=== PATIENT | female | born 1965 | race Caucasian/White ===

== ENCOUNTER → 2019-10-05 | Outpatient (CLI) | payer SELFPAY ==
--- NOTE | 2019-10-05 15:17 | XR ---
EXAMINATION TYPE: XR chest 2V DATE OF EXAM: 10/05/2019 COMPARISON: NONE HISTORY: Shortness of breath TECHNIQUE: Frontal and lateral views of the chest are obtained. FINDINGS: Scattered senescent parenchymal changes noted. Hyperinflation compatible with COPD. No evidence for infiltrate. No evidence for atelectasis. Cavitary lesion left upper lobe 5.8 x 5.2 cm tiny fluid level may reflect infected bulla versus necrotic neoplasm or infectious process. CT of th e chest is recommended. Heart size is stable. Mediastinal structures are stable and grossly unremarkable. No evidence for hilar prominence. Degenerative changes dorsal spine. IMPRESSION: 1. Cavitary lesion left upper lobe 5.8 x 5.2 cm tiny fluid level may reflect infected bulla versus ne crotic neoplasm or infectious process. CT of the chest is recommended.
== END | disposition home or self-care (01) ==
LOC: RADXRMAIN 14:49
PROVIDERS: ATTEND Family Medicine
DX: R91.1 Solitary pulmonary nodule (principal); R07.2 Precordial pain; R05 Cough
CPT/HCPCS: 71046

== ENCOUNTER → 2019-10-20 | Outpatient (CLI) | payer OTHER ==
[2019-10-20 09:14] LABS: African American GFR (CKD) >90 (>60 ml/min/1.73 sqM); Blood Urea Nitrogen 6 mg/dL (7-17); Non-African American GFR(CKD) >90 (>60 ml/min/1.73 sqM)
--- NOTE | 2019-10-20 11:11 | CT ---
"EXAMINATION TYPE: CT chest w con DATE OF EXAM: 10/20/2019 COMPARISON: Chest x-ray 10/05/2019 HISTORY: Hemoptysis, cough CT DLP: 1621 mGycm, Automated exposure control for dose reduction was used. CONTRAST: Performed injected with 100 mL of Isovue 300. TECHNIQUE: Axial images were obtained at 5 mm thick sections. Reconstructed images are reviewed on [employer] computer in the coronal plane. FINDINGS: Portion of the thyroid visualized is normal. There is a large cavitary lesion with an air-fluid level with slightly irregular thick wall at the le ft lung apex. This measures 8.6 cm in diameter which is larger than the chest x-ray of 5 cm in diamet er. Some mild compressive atelectasis or infiltrate may be adjacent especially inferiorly. Small left pleural effusion is present. Scattered small shotty lymph nodes are within the mediastinum. Enlarged mediastinal adenopathy is not evident. The ascending aorta diameter at the level of the main pulmonary artery is 3.1 cm. The main pulmonary artery diameter at the bifurcation is 2.[address] sections are obtained through the upper abdomen. Abdomen is essentially unremarkable. IMPRESSIONS: 1. Enlarging cavitary lesion left apex. Infectious etiology should be considered. Consider TB within the differential. Aspergillosis should be considered. Neoplasm not excluded. A Yellow level critical message alert has been initiated for Nathan Leroy MD via the [employer] | Critical Results System on 10/20/2019 11:08 AM. This message alert has been sent to Nathan ng MD via the preferences provided by the clinician for the receipt of Radiology Critical Findings. Herbie essage ID [id number]."
== END | disposition home or self-care (01) ==
LOC: RADCTMAIN 08:29
PROVIDERS: ATTEND Family Medicine
DX: J98.4 Other disorders of lung (principal); R04.2 Hemoptysis; R05 Cough; Z88.0 Allergy status to penicillin
CPT/HCPCS: 82565; 84520; 71260; 36415; Q9967

== ENCOUNTER 2019-10-21 16:49 | Inpatient (IN) | payer OTHER ==
[2019-10-21] MEDS ORDERED: SODIUM CHLORIDE 0.9% 500 ML 500 ML IV STA (17:37)
--- NOTE | 2019-10-21 17:54 | ED ---
General Adult HPI - General Chief complaint: Recheck/Abnormal Lab/Rx Stated complaint: lung abscess Time Seen by Provider: 10/21/19 16:50 Source: patient, RN notes reviewed, old records reviewed Mode of arrival: ambulatory Limitations: no limitations - History of Present Illness Initial comments: This is a 54-year-old female who presents to the emergency department to get she's been coughing for 6 months. Patient states for the last couple of months she's been coughing up some blood here and there she continued with antibiotics and recently she had a CAT scan. CAT scan showed a cavitary lesion so she was sent to the emergency department. We were concerned about tuberculosis but the patient states she had a negative skin test within the last week and a half. Patient states she's gotten extremely tired and fatigued over the last 2 weeks. Patient states on occasion she's felt like she's had a fever but she's never taken her temperature. Patient denies any night sweats. Patient denies any chest pain or palpitations. Patient denies any abdominal pain patient denies nausea vomiting diarrhea. Patient denies any calf tenderness. - Related Data Home Medications Medication Instructions Recorded Confirmed DULoxetine HCL [Cymbalta] 60 mg PO DAILY 06/04/16 10/21/19 Benzonatate [Tessalon Perles] 100 - 200 mg PO DAILY PRN 10/21/19 10/21/19 Bisoprolol-Hctz 5-6.25 mg [Ziac 1 tab PO DAILY 10/21/19 10/21/19 5-6.25 MG] Fluticasone Nasal [place] [Flonase 1 - 2 sprays EA NOSTRIL DAILY 10/21/19 10/21/19 Nasal [place]] Rosuvastatin [Crestor] 20 mg PO DAILY 10/21/19 10/21/19 amLODIPine [Norvasc] 10 mg PO DAILY 10/21/19 10/21/19 sitaGLIPtin PHOS/metFORMIN HCL 1 tab PO DAILY 10/21/19 10/21/19 [Janumet Xr 100-1,000 mg Tablet] Allergies Allergy/AdvReac Type Severity Reaction Status Date / Time Penicillins Allergy Unknown Verified 10/21/19 18:52 Childhood Review of Systems ROS Statement: Those systems with pertinent positive or pertinent negative responses have been documented in the HPI. ROS Other: All systems not noted in ROS Statement are negative. Past Medical History Past Medical History: Cancer, Hypertension Additional Past Medical History / Comment(s): cervical cancer History of Any Multi-Drug Resistant Organisms: None Reported Past Surgical History: Hysterectomy Past Psychological History: Anxiety, Bipolar, Depression Smoking Status: Current every day smoker Past Alcohol Use History: Occasional Past Drug Use History: None Reported General Exam - General Exam Comments Initial Comments: GENERAL: Patient is well-developed and well-nourished. Patient is nontoxic and well-hyd rated and is in mild distress. ENT: Neck is soft and supple. No significant lymphadenopathy is noted. Oropharynx is clear. Moist mucous membranes. Neck has full range of motion without eliciting any pain. EYES: The sclera were anicteric and conjunctiva were pink and moist. Extraocular movements were intact and pupils were equal round and reactive to light. Eyelids were unremarkable. PULMONARY: Unlabored respirations. Good breath sounds bilaterally. No audible rales rhonchi or wheezing was noted. CARDIOVASCULAR: There is a regular rate and rhythm without any murmurs gallops or rubs. ABDOMEN: Soft and nontender with normal bowel sounds. No palpable organomegaly was noted. There is no palpable pulsatile mass. SKIN: Skin is clear with no lesions or rashes and otherwise unremarkable. NEUROLOGIC: Patient is alert and oriented x3. Cranial nerves II through XII are grossly intact. Motor and sensory are also intact. Normal speech, volume and content. Symmetrical smile. MUSCULOSKELETAL: Normal extremities with adequate strength and full range of motion. No lower extremity swelling or edema. No calf tenderness. LYMPHATICS: No significant lymphadenopathy is noted PSYCHIATRIC: Normal psychiatric evaluation. Limitations: no limitations Course Vital Signs 10/21/19 10/21/19 16:51 18:05 Temperature 98.2 F Pulse Rate 85 81 Respiratory 20 18 Rate Blood Pressure 139/79 143/82 O2 Sat by Pulse 97 97 Oximetry Medical Decision Making - Medical Decision Making I spoke with Dr. Silverio by phone and he indicated that if the patient's TB test was negative we did not have to continue to wear the TB apparatus. I will be tr mauro to verify with Dr. Leroy about the TB test. Until then apparatus will be worn EKG shows normal sinus rhythm at 79 bpm [place] interval is 142 QRS is 74 QT interval 428 QTC is 490. Patient's EKG shows no ST segment elevation or depression or T wave abnormalities are noted. I spoke with Dr. Leroy he agrees to admit the patient admitted the patient and consult pulmonology. We never received confirmation that the patient had a negative TB test. - Lab Data Result diagrams: 10/21/19 18:05 10/21/19 18:05 Lab Results 10/21/19 10/21/19 10/21/19 Range/Units 18:05 18:05 18:05 WBC 15.0 H (3.8-10.6) k/uL RBC 3.91 (3.80-5.40) m/uL Hgb 12.2 (11.4-16.0) gm/dL Hct 35.5 (34.0-46.0) % MCV 90.6 (80.0-100.0) fL MCH 31.1 (25.0-35.0) pg MCHC 34.3 (31.0-37.0) g/dL RDW 12.2 (11.5-15.5) % Plt Count 610 H (150-450) k/uL Neutrophils % 86 % Lymphocytes % 8 % Monocytes % 3 % Eosinophils % 0 % Basophils % 0 % Neutrophils # 12.8 H (1.3-7.7) k/uL Lymphocytes # 1.2 (1.0-4.8) k/uL Monocytes # 0.5 (0-1.0) k/uL Eosinophils # 0.0 (0-0.7) k/uL Basophils # 0.0 (0-0.2) k/uL PT (9.0-12.0) sec INR (<1.2) APTT (22.0-30.0) sec Sodium 131 L (137-145) mmol/L Potassium 2.8 L (3.5-5.1) mmol/L Chloride 89 L (98-107) mmol/L Carbon Dioxide 34 H (22-30) mmol/L Anion Gap 8 mmol/L BUN 8 (7-17) mg/dL Creatinine 0.48 L (0.52-1.04) mg/dL Est GFR (CKD-EPI)AfAm >90 (>60 ml/min/1.73 sqM) Est GFR (CKD-EPI)NonAf >90 (>60 ml/min/1.73 sqM) Glucose 259 H (74-99) mg/dL Plasma Lactic Acid Orestes 1.3 (0.7-2.0) mmol/L Calcium 8.1 L (8.4-10.2) mg/dL Total Bilirubin 0.6 (0.2-1.3) mg/dL AST 18 (14-36) U/L ALT 8 (4-34) U/L Alkaline Phosphatase 138 H (38-126) U/L Troponin I (0.000-0.034) ng/mL Total Protein 6.2 L (6.3-8.2) g/dL Albumin 3.2 L (3.5-5.0) g/dL 10/21/19 10/21/19 Range/Units 18:05 18:05 WBC (3.8-10.6) k/uL RBC (3.80-5.40) m/uL Hgb (11.4-16.0) gm/dL Hct (34.0-46.0) % MCV (80.0-100.0) fL MCH (25.0-35.0) pg MCHC (31.0-37.0) g/dL RDW (11.5-15.5) % Plt Count (150-450) k/uL Neutrophils % % Lymphocytes % % Monocytes % % Eosinophils % % Basophils % % Neutrophils # (1.3-7.7) k/uL Lymphocytes # (1.0-4.8) k/uL Monocytes # (0-1.0) k/uL Eosinophils # (0-0.7) k/uL Basophils # (0-0.2) k/uL PT 10.2 (9.0-12.0) sec INR 0.9 (<1.2) APTT 25.4 (22.0-30.0) sec Sodium (137-145) mmol/L Potassium (3.5-5.1) mmol/L Chloride (98-107) mmol/L Carbon Dioxide (22-30) mmol/L Anion Gap mmol/L BUN (7-17) mg/dL Creatinine (0.52-1.04) mg/dL Est GFR (CKD-EPI)AfAm (>60 ml/min/1.73 sqM) Est GFR (CKD-EPI)NonAf (>60 ml/min/1.73 sqM) Glucose (74-99) mg/dL Plasma Lactic Acid Orestes (0.7-2.0) mmol/L Calcium (8.4-10.2) mg/dL Total Bilirubin (0.2-1.3) mg/dL AST (14-36) U/L ALT (4-34) U/L Alkaline Phosphatase (38-126) U/L Troponin I <0.012 (0.000-0.034) ng/mL Total Protein (6.3-8.2) g/dL Albumin (3.5-5.0) g/dL Disposition Clinical Impression: Cavitary lesion of lung Disposition: ADMITTED IP TO THIS HOSP Referrals: Nathan Leroy MD [Primary Care Provider] - 1-2 days Time of Disposition: 19:15
[2019-10-21 18:23] LABS: Basophils % (A) 0 %; Eosinophils % (A) 0 %; HCT 35.5 % (34.0-46.0); HGB 12.2 gm/dL (11.4-16.0); Lymphocytes # (A) 1.2 k/uL (1.0-4.8); Lymphocytes % (A) 8 %; MCH 31.1 pg (25.0-35.0); MCHC 34.3 g/dL (31.0-37.0); MCV 90.6 fL (80.0-100.0); Mean Platelet Volume 7.5; Monocytes # (A) 0.5 k/uL (0-1.0); Monocytes % (A) 3 %; Neutrophils # (A) 12.8 k/uL (1.3-7.7); Neutrophils % (A) 86 %; Platelet Count 610 k/uL (150-450); RBC 3.91 m/uL (3.80-5.40); RDW 12.2 % (11.5-15.5)
[2019-10-21 18:31] LABS: ALT 8 U/L (4-34); AST 18 U/L (14-36); African American GFR (CKD) >90 (>60 ml/min/1.73 sqM); Albumin 3.2 g/dL (3.5-5.0); Alkaline Phosphatase 138 U/L (38-126); Anion Gap 8 mmol/L; Blood Urea Nitrogen 8 mg/dL (7-17); Calcium 8.1 mg/dL (8.4-10.2); Carbon Dioxide 34 mmol/L (22-30); Chloride 89 mmol/L (98-107); Glucose 259 mg/dL (74-99); Non-African American GFR(CKD) >90 (>60 ml/min/1.73 sqM); Potassium 2.8 mmol/L (3.5-5.1); Sodium 131 mmol/L (137-145); Total Bilirubin 0.6 mg/dL (0.2-1.3); Total Protein 6.2 g/dL (6.3-8.2)
[2019-10-21 18:36] LABS: INR 0.9 (<1.2); Partial Thromboplastin Time 25.4 sec (22.0-30.0); Prothrombin Time 10.2 sec (9.0-12.0)
[2019-10-21] MEDS ORDERED: LEVOFLOXACIN 750MG-D5W PMX 750 MG in DEXTROSE/WATER 1 150ML.BAG IVPB STA (18:47)
[2019-10-21] MEDS ORDERED: POTASSIUM CHLORIDE ER 20 MEQ TAB.ER PO STA (18:47)
[2019-10-21] MEDS ORDERED: POTASSIUM CHLORIDE 20 MEQ in WATER FOR INJECTION 1 100ML.BAG IVPB STA (18:47)
[2019-10-21] MEDS ORDERED: PNEUMONIA PROTOCOL UTILIZED 1 EACH MISC PO PRN (19:16)
[2019-10-21] MEDS: SODIUM CHLORIDE 0.9% 1,000 ML IV SCH (20:02)
[2019-10-22] MEDS ORDERED: BENZONATATE 100 MG CAP PO PRN (09:05)
[2019-10-22] MEDS ORDERED: METFORMIN HCL PO SCH (09:15)
[2019-10-22] MEDS ORDERED: [UNRECOGNIZED DRUG - OTHER] PO SCH (09:15)
[2019-10-22] MEDS ORDERED: SITAGLIPTIN PHOS PO SCH (09:15)
[2019-10-22 09:58] LABS: Glucose,Whole Blood 170 mg/dL (75-99)
[2019-10-22] MEDS: LINAGLIPTIN 5 MG TABLET PO SCH (09:58)
[2019-10-22] MEDS: BISOPROLOL-HCTZ 5-6.25 MG 1 EACH TAB PO SCH (09:58)
[2019-10-22] MEDS: ATORVASTATIN 40 MG TAB PO SCH (09:58)
[2019-10-22] MEDS: amLODIPine 10 MG TAB PO SCH (09:58)
[2019-10-22] MEDS: metFORMIN 500 MG TAB PO SCH ×2 (09:58→21:25)
[2019-10-22 10:27] LABS: African American GFR (CKD) >90 (>60 ml/min/1.73 sqM); Anion Gap 7 mmol/L; Basophils # (A) 0.1 k/uL (0-0.2); Basophils % (A) 1 %; Blood Urea Nitrogen 5 mg/dL (7-17); Calcium 8.3 mg/dL (8.4-10.2); Carbon Dioxide 32 mmol/L (22-30); Chloride 96 mmol/L (98-107); Eosinophils % (A) 0 %; Glucose 161 mg/dL (74-99); HCT 34.3 % (34.0-46.0); HGB 11.6 gm/dL (11.4-16.0); Lymphocytes # (A) 0.9 k/uL (1.0-4.8); Lymphocytes % (A) 11 %; MCH 31.2 pg (25.0-35.0); MCHC 33.9 g/dL (31.0-37.0); MCV 92.2 fL (80.0-100.0); Magnesium 2.1 mg/dL (1.6-2.3); Mean Platelet Volume 7.4; Monocytes # (A) 0.7 k/uL (0-1.0); Monocytes % (A) 8 %; Neutrophils # (A) 6.7 k/uL (1.3-7.7); Neutrophils % (A) 76 %; Non-African American GFR(CKD) >90 (>60 ml/min/1.73 sqM); Platelet Count 540 k/uL (150-450); Potassium 3.4 mmol/L (3.5-5.1); RBC 3.71 m/uL (3.80-5.40); RDW 12.2 % (11.5-15.5); Sodium 135 mmol/L (137-145); WBC 8.8 k/uL (3.8-10.6)
[2019-10-22] MEDS: DULoxetine HCL 60 MG CAPSULE.DR PO SCH (10:54)
--- NOTE | 2019-10-22 11:28 | P.HPIM ---
History of Present Illness H&P Date: 10/22/19 Chief Complaint: Hemoptysis This pleasant 54-year-old white female. She's been complaining of coughing for several months. She indicates for the last 6-8 weeks she's been coughing up blood tinged with the mucus. She now reports she been just coughing up blood. In the office a chest x-ray was ordered and it showed a cavitary lesion to the left apex. CT scan did not confirm this. Patient reports try to quit smoking by DFA pending store-bought apple and/or watermelon flavored products. She reports these cause her to cough quite a bit. she denies any recent travel. She likes to attend to her pond outside over the summertime. She has 2 guinea pigs and dogs, but no birds. She is had a TB test in the office was negative. She denies any night sweats or fevers. Denies any chest pains or palpitations. Denies any abdominal pain, nausea vomiting, diarrhea or constipation. After the CT, she was referred to pulmonology outpatient, however after the review the film and he directed her here to the emergency room for further workup. Resting comfortably in isolation in the emergency room. Review of Systems All systems: negative Past Medical History Past Medical History: Cancer, Hypertension Additional Past Medical History / Comment(s): cervical cancer History of Any Multi-Drug Resistant Organisms: None Reported Past Surgical History: Hysterectomy Past Psychological History: Anxiety, Bipolar, Depression Smoking Status: Current every day smoker Past Alcohol Use History: Occasional Past Drug Use History: None Reported Medications and Allergies Home Medications Medication Instructions Recorded Confirmed Type DULoxetine HCL [Cymbalta] 60 mg PO DAILY 06/04/16 10/21/19 History Benzonatate [Tessalon Perles] 100 - 200 mg PO DAILY PRN 10/21/19 10/21/19 History Bisoprolol-Hctz 5-6.25 mg [Ziac 1 tab PO DAILY 10/21/19 10/21/19 History 5-6.25 MG] Fluticasone Nasal [place] [Flonase 1 - 2 sprays EA NOSTRIL DAILY 10/21/19 10/21/19 History Nasal [place]] Rosuvastatin [Crestor] 20 mg PO DAILY 10/21/19 10/21/19 History amLODIPine [Norvasc] 10 mg PO DAILY 10/21/19 10/21/19 History sitaGLIPtin PHOS/metFORMIN HCL 1 tab PO DAILY 10/21/19 10/21/19 History [Janumet Xr 100-1,000 mg Tablet] Allergies Allergy/AdvReac Type Severity Reaction Status Date / Time Penicillins Allergy Unknown Verified 10/21/19 18:52 Childhood Physical Exam Vitals: Vital Signs Temp Pulse Resp BP Pulse Ox 10/22/19 06:00 69 17 120/77 97 10/22/19 05:30 75 18 129/73 97 10/22/19 05:00 72 18 116/60 96 10/22/19 04:30 68 19 118/65 97 10/22/19 04:00 66 17 112/61 97 10/22/19 03:30 69 18 104/50 97 10/22/19 03:00 71 18 123/66 97 10/22/19 02:30 74 18 125/73 97 10/22/19 02:00 73 17 123/63 98 10/22/19 01:30 70 17 109/74 100 10/22/19 01:01 73 18 109/74 96 10/21/19 23:55 75 18 133/71 96 10/21/19 21:45 98.0 F 74 18 131/66 96 10/21/19 20:00 74 18 138/69 98 10/21/19 19:00 77 18 146/81 96 10/21/19 18:05 81 18 143/82 97 10/21/19 16:51 98.2 F 85 20 139/79 97 Intake and Output 10/21/19 10/22/19 10/22/19 22:59 06:59 14:59 Other: Weight 71.35 kg GENERAL: Well-appearing, well-nourished and in no acute distress. HEAD: Atraumatic, normocephalic. EYES: Pupils equal round and reactive to light, extraocular movements intact, sclera anicteric, conjunctiva are normal. ENT:nares patent, oropharynx clear without exudates. Moist mucous membranes. NECK: Normal range of motion, supple without lymphadenopathy or JVD, no thyromegaly LUNGS: Breath sounds coarse to auscultation bilaterally and equal. No wheezes rales or rhonchi. HEART: Regular rate and rhythm without murmurs, rubs or gallops.S1S2 Normal ABDOMEN: Soft, nontender, normoactive bowel sounds. No guarding, no rebound. No masses appreciated. EXTREMITIES: Normal range of motion, no pitting or edema. No clubbing or cyanosis. NEUROLOGICAL: Cranial nerves II through XII grossly intact. Normal speech, normal gait. PSYCH: Normal mood, normal affect. SKIN: Warm, Dry, normal turgor, no rashes or lesions noted. Results CBC & Chem 7: 10/22/19 09:37 10/22/19 09:37 Labs: Abnormal Lab Results - Last 24 Hours (Table) 10/21/19 10/21/19 10/22/19 Range/Units 18:05 18:05 09:37 WBC 15.0 H (3.8-10.6) k/uL RBC 3.71 L (3.80-5.40) m/uL Plt Count 610 H 540 H (150-450) k/uL Neutrophils # 12.8 H (1.3-7.7) k/uL Lymphocytes # 0.9 L (1.0-4.8) k/uL Sodium 131 L (137-145) mmol/L Potassium 2.8 L (3.5-5.1) mmol/L Chloride 89 L (98-107) mmol/L Carbon Dioxide 34 H (22-30) mmol/L BUN (7-17) mg/dL Creatinine 0.48 L (0.52-1.04) mg/dL Glucose 259 H (74-99) mg/dL POC Glucose (mg/dL) (75-99) mg/dL Calcium 8.1 L (8.4-10.2) mg/dL Alkaline Phosphatase 138 H (38-126) U/L Total Protein 6.2 L (6.3-8.2) g/dL Albumin 3.2 L (3.5-5.0) g/dL 10/22/19 10/22/19 Range/Units 09:37 09:56 WBC (3.8-10.6) k/uL RBC (3.80-5.40) m/uL Plt Count (150-450) k/uL Neutrophils # (1.3-7.7) k/uL Lymphocytes # (1.0-4.8) k/uL Sodium 135 L (137-145) mmol/L Potassium 3.4 L (3.5-5.1) mmol/L Chloride 96 L (98-107) mmol/L Carbon Dioxide 32 H (22-30) mmol/L BUN 5 L (7-17) mg/dL Creatinine 0.41 L (0.52-1.04) mg/dL Glucose 161 H (74-99) mg/dL POC Glucose (mg/dL) 170 H (75-99) mg/dL Calcium 8.3 L (8.4-10.2) mg/dL Alkaline Phosphatase (38-126) U/L Total Protein (6.3-8.2) g/dL Albumin (3.5-5.0) g/dL Chest x-ray: report reviewed (Cavitary lesion left upper lobe 5.8 x 5.2 cm) CT scan - chest: report reviewed (Enlarging cavitary lesion left apex infectious etiology should be considered consider TB within the differential aspergillosis should be considered neoplasm not excluded) Thrombosis Risk Factor Assmnt - DVT/VTE Prophylaxis DVT/VTE Prophylaxis: Contraindicated - See note (Active hemoptysis) Assessment and Plan (1) Cough with hemoptysis Current Visit: Yes Status: Acute Code(s): R04.2 - HEMOPTYSIS SNOMED Code(s): 15893414 (2) Cough Current Visit: Yes Status: Acute Code(s): R05 - COUGH SNOMED Code(s): 32739727 (3) Essential (primary) hypertension Current Visit: Yes Status: Acute Code(s): I10 - ESSENTIAL (PRIMARY) HYPERTENSION SNOMED Code(s): 99078922 (4) Type 2 diabetes mellitus without complications Current Visit: Yes Status: Acute Code(s): E11.9 - TYPE 2 DIABETES MELLITUS WITHOUT COMPLICATIONS SNOMED Code(s): 381234190 (5) Mixed hyperlipidemia Current Visit: Yes Status: Acute Code(s): E78.2 - MIXED HYPERLIPIDEMIA SNOMED Code(s): 619468019 (6) Major depressive disorder, recurrent, moderate Current Visit: Yes Status: Acute Code(s): F33.1 - MAJOR DEPRESSIVE DISORDER, RECURRENT, MODERATE SNOMED Code(s): 760569941 (7) Rhinitis Current Visit: Yes Status: Acute Code(s): J31.0 - CHRONIC RHINITIS SNOMED Code(s): 40040448 (8) Cavitary lesion of lung Current Visit: Yes Status: Acute Code(s): J98.4 - OTHER DISORDERS OF LUNG SNOMED Code(s): 382297918 Plan: We'll consult pulmonology. We'll await the recommendations. discuss smoking cessation. Repeat labs in a.m. Reevaluate next 24 hours Patient may have isolation for TB discontinued
[2019-10-22] MEDS ORDERED: Potassium Replacement Protocol 1 EACH MISC MISCELLANE PRN (11:29)
[2019-10-22] MEDS ORDERED: ACETAMINOPHEN TAB 325 MG TAB PO PRN (12:30)
[2019-10-22 12:49] LABS: Glucose,Whole Blood 154 mg/dL (75-99)
[2019-10-22] MEDS: FLUTICASONE 50MCG/SPRAY NASAL 16GM EA NOSTRIL SCH (13:26)
[2019-10-22] MEDS: POTASSIUM CHLORIDE 10 MEQ in WATER FOR INJECTION 1 100ML.BAG IVPB SCH ×6 (13:39→23:47)
[2019-10-22] MEDS: INSULIN ASPART (NovoLOG) 100 UNIT/ML VIAL SQ SCH ×3 (13:43→21:25)
[2019-10-22] MEDS: SODIUM CHLORIDE 0.9% 1,000 ML IV SCH ×2 (13:45→15:35)
--- NOTE | 2019-10-22 13:46 | P.CNPUL ---
History of Present Illness Consult date: 10/22/19 Reason for consult: lung mass History of present illness: A 54-year-old female patient got transferred to the ED by her primary care physician because of abnormal chest x-ray. The patient was having cough and congestion antibiotic hemoptysis over the past several months and for that reason she had a chest x-ray that showed a cavitating lesion in the left upper lobe measuring 5.8 x 5.2 cm in size with IV fluid level. Based on this, CAT scan of the chest was done and the CAT scan showed a cavitating lesion in the left upper lobe of similar size, in fact seem to be slightly larger measuring 8.6 cm. The cavity velazquez were quite thick and irregular and the ragged and there was an air-fluid level that was small. There was also small left-sided pleural effusion. Scattered nonspecific shotty mediastinal lymph nodes were seen throughout the mediastinum. Based on this, the patient was placed in AFB isolation and she was admitted to the hospital. Currently she is looking well. She is on room air oxygen. She reports some occasional blood mixed with mucus. She has some soreness across her left upper chest area at the site of the ca vity. No exposure to TB. Had PPD skin test that was done at the PCP office was negative. 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 These are all negative according to her. No exposure to sick contacts. No 70 rheumatologic disease such as lupus. No 70 hematuria. Most of aspiration. No history of alcoholism. She drinks alcohol and she has recurrent 3 times a week in moderation. She smokes which is broken approximately 30 years and she started smoking at the age of 15. She has developed some digital clubbing. She has also some soreness in her fingers involving the hands. No history of immunosuppression. No cervix IV. No indication for any i mmunosuppression. She is not promiscuous. She is having some diminished appetite and weakness and some weight loss. She has no altered mentation. She has history of cervical cancer post-vaginal hysterectomy several years back without any systemic involvement. Review of Systems Constitutional: Reports fatigue, Reports fever, Reports weight loss Eyes: denies as per HPI, denies blurred vision, denies bulging eye, denies decreased vision, denies diplopia, denies discharge, denies dry eye, denies irritation, denies itching, denies pain, denies photophobia, denies loss of peripheral vision, denies loss of vision, denies tunnel vision/blind spots Ears: deny: decreased hearing, ear discharge, earache, tinnitus Ears, nose, mouth and throat: Reports as per HPI Breasts: absent: as per HPI, change in shape, gynecomastia, masses, nipple discharge, pain, skin changes, swelling Breasts: Reports as per HPI Cardiovascular: Reports dyspnea on exertion Respiratory: Reports cough, Reports dyspnea, Reports hemoptysis Genitourinary: Reports as per HPI Menstruation: Reports as per HPI Musculoskeletal: Reports as per HPI Musculoskeletal: absent: ankle pain, ankle stiffness, ankle swelling, as per HPI, elbow pain, elbow stiffness, elbow swelling, foot pain, foot stiffness, foot swelling, hand pain, hand stiffness, hand swelling, hip pain, hip stiffness, hip swelling, knee pain, knee stiffness, knee swelling, shoulder pain, shoulder stiffness, shoulder swelling, wrist pain, wrist stiffness, wrist swelling Integumentary: Reports as per HPI Neurological: Reports as per HPI Psychiatric: Reports as per HPI Endocrine: Reports as per HPI Hematologic/Lymphatic: Reports as per HPI Allergic/Immunologic: Reports as per HPI Past Medical History Past Medical History: Cancer, Diabetes Mellitus, Hyperlipidemia, Hypertension Additional Past Medical History / Comment(s): cervical cancer History of Any Multi-Drug Resistant Organisms: None Reported Past Surgical History: Hysterectomy Past Psychological History: Anxiety, Bipolar, Depression Smoking Status: Current every day smoker (30 pack years at least) Past Alcohol Use History: Occasional Past Drug Use History: None Reported Medications and Allergies Home Medications Medication Instructions Recorded Confirmed Type DULoxetine HCL [Cymbalta] 60 mg PO DAILY 06/04/16 10/21/19 History Benzonatate [Tessalon Perles] 100 - 200 mg PO DAILY PRN 10/21/19 10/21/19 History Bisoprolol-Hctz 5-6.25 mg [Ziac 1 tab PO DAILY 10/21/19 10/21/19 History 5-6.25 MG] Fluticasone Nasal [place] [Flonase 1 - 2 sprays EA NOSTRIL DAILY 10/21/19 10/21/19 History Nasal [place]] Rosuvastatin [Crestor] 20 mg PO DAILY 10/21/19 10/21/19 History amLODIPine [Norvasc] 10 mg PO DAILY 10/21/19 10/21/19 History sitaGLIPtin PHOS/metFORMIN HCL 1 tab PO DAILY 10/21/19 10/21/19 History [Janumet Xr 100-1,000 mg Tablet] Allergies Allergy/AdvReac Type Severity Reaction Status Date / Time Penicillins Allergy Unknown Verified 10/21/19 18:52 Childhood Physical Exam Vitals: Vital Signs Temp Pulse Resp BP Pulse Ox 10/22/19 06:00 69 17 120/77 97 10/22/19 05:30 75 18 129/73 97 10/22/19 05:00 72 18 116/60 96 10/22/19 04:30 68 19 118/65 97 10/22/19 04:00 66 17 112/61 97 10/22/19 03:30 69 18 104/50 97 10/22/19 03:00 71 18 123/66 97 10/22/19 02:30 74 18 125/73 97 10/22/19 02:00 73 17 123/63 98 10/22/19 01:30 70 17 109/74 100 10/22/19 01:01 73 18 109/74 96 10/21/19 23:55 75 18 133/71 96 10/21/19 21:45 98.0 F 74 18 131/66 96 10/21/19 20:00 74 18 138/69 98 10/21/19 19:00 77 18 146/81 96 10/21/19 18:05 81 18 143/82 97 10/21/19 16:51 98.2 F 85 20 139/79 97 Intake and Output 10/21/19 10/22/19 10/22/19 22:59 06:59 14:59 Other: Weight 71.35 kg The patient appeared well nourished and normally developed. Vital signs as documented. Head exam is unremarkable. No scleral icterus or corneal arcus noted. Neck is without jugular venous distension, thyromegaly, or carotid bruits. Carotid upstrokes are brisk bilaterally. Lungs are clear to auscultation and percussion. Cardiac exam reveals the PMI to be normally sized and situated. Rhythm is regular. First and second heart sounds normal. No murmurs, rubs or gallops. Abdominal exam reveals normal bowel sounds, no masses, no organomegaly and no aortic enlargement. Extremities are nonedematous and both femoral and pedal pulses are normal.Examination of the skin revealed no evidence of significant rashes, suspicious appearing nevi or other concerning lesions. Neurologically awake and alert and is no focal neurological deficit. Results - Laboratory Findings CBC and BMP: 10/22/19 09:37 10/22/19 09:37 PT/INR, D-dimer PT 10.2 sec (9.0-12.0) 10/21/19 18:05 INR 0.9 (<1.2) 10/21/19 18:05 Abnormal lab findings: Abnormal Labs 10/21/19 10/21/19 10/22/19 18:05 18:05 09:37 WBC 15.0 H RBC 3.71 L Plt Count 610 H 540 H Neutrophils # 12.8 H Lymphocytes # 0.9 L Sodium 131 L Potassium 2.8 L Chloride 89 L Carbon Dioxide 34 H BUN Creatinine 0.48 L Glucose 259 H POC Glucose (mg/dL) Calcium 8.1 L Alkaline Phosphatase 138 H Total Protein 6.2 L Albumin 3.2 L 10/22/19 10/22/19 10/22/19 09:37 09:56 12:48 WBC RBC Plt Count Neutrophils # Lymphocytes # Sodium 135 L Potassium 3.4 L Chloride 96 L Carbon Dioxide 32 H BUN 5 L Creatinine 0.41 L Glucose 161 H POC Glucose (mg/dL) 170 H 154 H Calcium 8.3 L Alkaline Phosphatase Total Protein Albumin - Diagnostic Findings Chest x-ray: image reviewed CT scan - chest: image reviewed Assessment and Plan Plan: 1 cavitating 8 cm left upper lobe lesion with a small air-fluid level and characteristics indicating malignancy as the cavity velazquez are rather thick and there is no evidence of any significant mediastinal lymphadenopathy. The patient has developed also digital clubbing. There is concern for hypertrophic osteoarthropathy in her fingers. High likely for squamous cell carcinoma. It is consistent been negative. TB or atypical mycobacterium is less likely. Lung abscess is also felt to be less likely. Connective tissue diseases causing cavitation of the lung such as Alisia's or lupus or felt to be less likely. 2 hemoptysis secondary to above 3 constitutional symptoms 4 chronic smoker 5 history of cervical cancer 6 diabetes mellitus 2 7 hypertension 8 hyperlipidemia Plan Agree on checking this patient for sputum AFB. He is consistent been negative. Keep nothing by mouth after midnight Bronchoscopy in a.m. with transbronchial biopsies and bronchial lavage of the left upper lobe We'll follow
[2019-10-22 17:22] LABS: Glucose,Whole Blood 138 mg/dL (75-99)
[2019-10-22] MEDS ORDERED: LEVOFLOXACIN 750MG-D5W PMX 750 MG in DEXTROSE/WATER 1 150ML.BAG IVPB SCH (20:00)
[2019-10-22] MEDS: LEVOFLOXACIN 750 MG TAB PO SCH (21:25)
[2019-10-22 21:28] LABS: Glucose,Whole Blood 194 mg/dL (75-99)
[2019-10-23] MEDS: SODIUM CHLORIDE 0.9% 1,000 ML IV SCH ×2 (03:24→12:02)
[2019-10-23 07:34] LABS: Glucose,Whole Blood 151 mg/dL (75-99)
[2019-10-23] MEDS: BISOPROLOL-HCTZ 5-6.25 MG 1 EACH TAB PO SCH (07:50)
[2019-10-23] MEDS: DULoxetine HCL 60 MG CAPSULE.DR PO SCH (07:50)
[2019-10-23] MEDS: amLODIPine 10 MG TAB PO SCH (07:50)
[2019-10-23] MEDS: INSULIN ASPART (NovoLOG) 100 UNIT/ML VIAL SQ SCH ×4 (07:50→21:54)
[2019-10-23] MEDS: ATORVASTATIN 40 MG TAB PO SCH (07:51)
[2019-10-23] MEDS: LINAGLIPTIN 5 MG TABLET PO SCH (07:51)
[2019-10-23] MEDS: metFORMIN 500 MG TAB PO SCH ×2 (07:51→21:54)
[2019-10-23] MEDS: FLUTICASONE 50MCG/SPRAY NASAL 16GM EA NOSTRIL SCH (07:51)
[2019-10-23 09:40] LABS: HCT 35.7 % (34.0-46.0); HGB 11.9 gm/dL (11.4-16.0); Hypochromasia Slight; MCH 31.5 pg (25.0-35.0); MCHC 33.4 g/dL (31.0-37.0); MCV 94.1 fL (80.0-100.0); Mean Platelet Volume 7.2; Platelet Count 553 k/uL (150-450); RBC 3.79 m/uL (3.80-5.40); RDW 11.8 % (11.5-15.5); WBC 8.6 k/uL (3.8-10.6)
[2019-10-23 09:50] LABS: African American GFR (CKD) >90 (>60 ml/min/1.73 sqM); Anion Gap 7 mmol/L; Blood Urea Nitrogen 9 mg/dL (7-17); Calcium 8.4 mg/dL (8.4-10.2); Carbon Dioxide 25 mmol/L (22-30); Chloride 103 mmol/L (98-107); Glucose 151 mg/dL (74-99); Non-African American GFR(CKD) >90 (>60 ml/min/1.73 sqM); Potassium 4.1 mmol/L (3.5-5.1); Sodium 135 mmol/L (137-145)
[2019-10-23 11:05] LABS: Lymphocytes # (M) 1.03 k/uL (1.0-4.8); Monocytes # (M) 0.34 k/uL (0-1.0); Neutrophils # (M) 7.22 k/uL (1.3-7.7); Neutrophils % (M) 84 %; Nucleated Red Blood Cells 0 /100 WBC (0-0); Total Cells Counted 100
[2019-10-23 11:06] LABS: Poikilocytosis (M) Present
[2019-10-23 11:24] VITALS: BMI 23.9
[2019-10-23 12:07] LABS: Glucose,Whole Blood 156 mg/dL (75-99)
--- NOTE | 2019-10-23 15:26 | P.PN ---
Subjective Progress Note Date: 10/23/19 On 10/23/2019 and seeing the patient for a follow-up. The patient is calm and comfortable. She is having episodes of cough and low degree of hemoptysis. CAT scan of the chest was noted. I discussed the findings with the family. The patient's will be taken for an endoscopy for lavage and possible transplant biopsies depending on the findings. There is a concern for an underlying malignancy of a squamous cell type. Infectious causes cannot be completely excluded. Please refer to my earlier dictations from yesterday. Objective - Vital Signs Vital signs: Vital Signs Temp 98.3 F 10/23/19 04:35 Pulse 72 10/23/19 04:35 Resp 16 10/23/19 14:30 BP 116/69 10/23/19 04:35 Pulse Ox 96 10/23/19 04:35 Intake & Output 10/22/19 10/23/19 10/23/19 18:59 06:59 18:59 Weight 71.35 kg 71.35 kg Other: Voiding Method Toilet # Voids 3 - Exam The patient appeared well nourished and normally developed. Vital signs as documented. Head exam is unremarkable. No scleral icterus or corneal arcus noted. Neck is without jugular venous distension, thyromegaly, or carotid bruits. Carotid upstrokes are brisk bilaterally. Lungs are clear to auscultation and percussion. Cardiac exam reveals the PMI to be normally sized and situated. Rhythm is regular. First and second heart sounds normal. No murmurs, rubs or gallops. Abdominal exam reveals normal bowel sounds, no masses, no organomegaly and no aortic enlargement. Extremities are nonedematous and both femoral and pedal pulses are normal.Examination of the skin revealed no evidence of significant rashes, suspicious appearing nevi or other concerning lesions. Neurologically awake and alert and is no focal neurological deficit. - Labs CBC & Chem 7: 10/23/19 08:53 10/23/19 08:53 Labs: Abnormal Lab Results - Last 24 Hours (Table) 10/22/19 10/22/19 10/22/19 Range/Units 09:37 17:19 21:07 RBC (3.80-5.40) m/uL Plt Count (150-450) k/uL Sodium (137-145) mmol/L Creatinine (0.52-1.04) mg/dL Glucose (74-99) mg/dL POC Glucose (mg/dL) 138 H 194 H (75-99) mg/dL Hemoglobin A1c 7.0 H (4.0-6.0) % 10/23/19 10/23/19 10/23/19 Range/Units 07:32 08:53 08:53 RBC 3.79 L (3.80-5.40) m/uL Plt Count 553 H (150-450) k/uL Sodium 135 L (137-145) mmol/L Creatinine 0.38 L (0.52-1.04) mg/dL Glucose 151 H (74-99) mg/dL POC Glucose (mg/dL) 151 H (75-99) mg/dL Hemoglobin A1c (4.0-6.0) % 10/23/19 Range/Units 12:00 RBC (3.80-5.40) m/uL Plt Count (150-450) k/uL Sodium (137-145) mmol/L Creatinine (0.52-1.04) mg/dL Glucose (74-99) mg/dL POC Glucose (mg/dL) 156 H (75-99) mg/dL Hemoglobin A1c (4.0-6.0) % Microbiology - Last 24 Hours (Table) 10/21/19 18:05 Blood Culture - Preliminary Blood No Growth after 24 hours Assessment and Plan Plan: 1 cavitating 8 cm left upper lobe lesion with a small air-fluid level and ch aracteristics indicating malignancy as the cavity velazquez are rather thick and there is no evidence of any significant mediastinal lymphadenopathy. The patient has developed also digital clubbing. There is concern for hypertrophic osteoarthropathy in her fingers. High likely for squamous cell carcinoma. It is consistent been negative. TB or atypical mycobacterium is less likely. Lung abscess is also felt to be less likely. Connective tissue diseases causing cavitation of the lung such as Alisia's or lupus or felt to be less likely. 2 hemoptysis secondary to above 3 constitutional symptoms 4 chronic smoker 5 history of cervical cancer 6 diabetes mellitus 2 7 hypertension 8 hyperlipidemia Plan The patient will have a bronchoscopy today. We will obtain a bronchioloalveolar lavage of the left upper lobe. We'll send the lavage for microbial cultures and analysis. With the bronchioloalveolar lavage for cytologic evaluation. We will attempt to get some transbronchial biopsies also from the left upper lobe. We'll continue to follow. Further recommendations are to follow based on the findings during bronchoscopy. I did have a lengthy discussion with the family. I showed them the films and the images and my plan of treatment.
[2019-10-23] MEDS ORDERED: KETAMINE 10 MG/ML 20 ML VIAL ONE (15:32)
[2019-10-23] MEDS ORDERED: MIDAZOLAM 2 MG/2 ML VIAL ONE (15:32)
[2019-10-23] MEDS ORDERED: LIDOCAINE 1% INJ 10MG/ML (20 ML MDV) ONE (15:32)
[2019-10-23] MEDS ORDERED: IV FLUID CONTINUATION 400 ML IV ONE (15:32)
[2019-10-23] MEDS ORDERED: fentaNYL (PF) 50 MCG/ML 2 ML AMP ONE (15:32)
[2019-10-23] MEDS ORDERED: PROPOFOL 10 MG/ML 20 ML VIAL IV ONE (15:32)
[2019-10-23] MEDS ORDERED: LIDOCAINE 2% INJ 20 MG/ML INTRATRACH ONE (15:56)
--- NOTE | 2019-10-23 16:34 | P.PN ---
Subjective Progress Note Date: 10/23/19 This pleasant 54-year-old white female. She's been complaining of coughing for several months. She indicates for the last 6-8 weeks she's been coughing up blood tinged with the mucus. She now reports she been just coughing up blood. In the office a chest x-ray was ordered and it showed a cavitary lesion to the left apex. CT scan did not confirm this. Patient reports try to quit smoking by DFA pending store-bought apple and/or watermelon flavored products. She reports these cause her to cough quite a bit. she denies any recent travel. She likes to attend to her pond outside over the summertime. She has 2 guinea pigs and dogs, but no birds. She is had a TB test in the office was negative. She denies any night sweats or fevers. Denies any chest pains or palpitations. Denies any abdominal pain, nausea vomiting, diarrhea or constipation. After the CT, she was referred to pulmonology outpatient, however after the review the film and he directed her here to the emergency room for further workup. Resting comfortably in isolation in the emergency room. 10/23/2019 bronchoscopy scheduled for today. Breathing significantly improved. Reports mild hemoptysis earlier today. Hemoglobin remained stable, hemoglobin 11.9. Afebrile, normal WBC. Maintaining O2 sats in the high 90s on room air. Denies any chest pain, palpitations. Objective - Vital Signs Vital signs: Vital Signs Temp 98.3 F 10/23/19 04:35 Pulse 72 10/23/19 04:35 Resp 16 10/23/19 08:00 BP 116/69 10/23/19 04:35 Pulse Ox 96 10/23/19 04:35 Intake & Output 10/22/19 10/23/19 10/23/19 18:59 06:59 18:59 Weight 71.35 kg 71.35 kg Other: Voiding Method Toilet # Voids 3 - Exam GENERAL: Sitting up in bed, no acute distress HEAD: Atraumatic, normocephalic. EYES: Pupils equal round and reactive to light, extraocular movements intact, sclera anicteric, conjunctiva are normal. ENT:nares patent, oropharynx clear without exudates. Oral mucosa dry. NECK: Normal range of motion, supple without lymphadenopathy or JVD, no thyromegaly LUNGS: Breath sounds coarse to auscultation bilaterally and equal. No wheezes rales or rhonchi. HEART: Regular rate and rhythm without murmurs, rubs or gallops.S1S2 Normal ABDOMEN: Soft, nontender, normoactive bowel sounds. No guarding, no rebound. No masses appreciated. EXTREMITIES: Normal range of motion, no pitting or edema. No clubbing or cyanosis. NEUROLOGICAL: Cranial nerves II through XII grossly intact. Normal speech, normal gait. PSYCH: Normal mood, normal affect. SKIN: Warm, Dry, normal turgor, no rashes or lesions noted. - Labs CBC & Chem 7: 10/23/19 08:53 10/23/19 08:53 Labs: Abnormal Lab Results - Last 24 Hours (Table) 10/22/19 10/22/19 10/22/19 Range/Units 09:37 17:19 21:07 RBC (3.80-5.40) m/uL Plt Count (150-450) k/uL Sodium (137-145) mmol/L Creatinine (0.52-1.04) mg/dL Glucose (74-99) mg/dL POC Glucose (mg/dL) 138 H 194 H (75-99) mg/dL Hemoglobin A1c 7.0 H (4.0-6.0) % 10/23/19 10/23/19 10/23/19 Range/Units 07:32 08:53 08:53 RBC 3.79 L (3.80-5.40) m/uL Plt Count 553 H (150-450) k/uL Sodium 135 L (137-145) mmol/L Creatinine 0.38 L (0.52-1.04) mg/dL Glucose 151 H (74-99) mg/dL POC Glucose (mg/dL) 151 H (75-99) mg/dL Hemoglobin A1c (4.0-6.0) % 10/23/19 Range/Units 12:00 RBC (3.80-5.40) m/uL Plt Count (150-450) k/uL Sodium (137-145) mmol/L Creatinine (0.52-1.04) mg/dL Glucose (74-99) mg/dL POC Glucose (mg/dL) 156 H (75-99) mg/dL Hemoglobin A1c (4.0-6.0) % Microbiology - Last 24 Hours (Table) 10/21/19 18:05 Blood Culture - Preliminary Blood No Growth after 24 hours Assessment and Plan Assessment: (1) Cough with hemoptysis Current Visit: Yes Status: Acute Code(s): R04.2 - HEMOPTYSIS SNOMED Code(s): 98468763 (2) Cough Current Visit: Yes Status: Acute Code(s): R05 - COUGH SNOMED Code(s): 35734774 (3) Essential (primary) hypertension Current Visit: Yes Status: Acute Code(s): I10 - ESSENTIAL (PRIMARY) HYPERTENSION SNOMED Code(s): 35865049 (4) Type 2 diabetes mellitus without complications Current Visit: Yes Status: Acute Code(s): E11.9 - TYPE 2 DIABETES MELLITUS WITHOUT COMPLICATIONS SNOMED Code(s): 999185590 (5) Mixed hyperlipidemia Current Visit: Yes Status: Acute Code(s): E78.2 - MIXED HYPERLIPIDEMIA SNOMED Code(s): 422571018 (6) Major depressive disorder, recurrent, moderate Current Visit: Yes Status: Acute Code(s): F33.1 - MAJOR DEPRESSIVE DISORDER, RECURRENT, MODERATE SNOMED Code(s): 065158537 (7) Rhinitis Current Visit: Yes Status: Acute Code(s): J31.0 - CHRONIC RHINITIS SNOMED Code(s): 49273240 (8) Cavitary lesion of lung, possible malignant, possible infectious Current Visit: Yes Status: Acute Code(s): J98.4 - OTHER DISORDERS OF LUNG SNOMED Code(s): 040318473 Plan: Continue on current medication regime ,monitoring and symptomatic treatment.NPO, bronchoscopy pending. Follow closely with pulmonary. Smoking cessation reinforced. Infectious disease consulted with recommendations pending. Possibly discharge home after bronchoscopy. The impression and plan of care has been dictated as directed. : I performed a history and examination of this patient, discussed the same with the dictator. I agree with the dictator's note ,documented as a scribe. Any additional findings or plans will be noted.
--- NOTE | 2019-10-23 17:32 | XR ---
EXAMINATION TYPE: XR chest 1V DATE OF EXAM: 10/23/2019 COMPARISON: 10/05/2019 HISTORY: Bronchoscopy TECHNIQUE: FINDINGS: There is a 9 cm cavitating lesion left upper lobe with fluid level. The right lung is clear . There is no heart failure. Heart size is normal. Bony thorax is intact. I see no pneumothorax. IMPRESSION: No pneumothorax. Cavitating mass left upper lobe with fluid level. Fluid is new compared to old exam. Mass is increase in size compared to old exam. Consider both tumor and abscess.
[2019-10-23 17:41] LABS: Glucose,Whole Blood 154 mg/dL (75-99)
[2019-10-23 20:16] LABS: Appearance,BF Hazy; Color,BF Red; Nucleated Cells, Body Fluid 370 /uL; RBC, Body Fluid 20100 /uL
[2019-10-23 20:17] LABS: Mononuclear WBC,Body Fluid 21 %; Polynuclear WBC,Body Fluid 79 %; Total Cells Counted,Body Fluid 100
[2019-10-23 21:21] LABS: Glucose,Whole Blood 192 mg/dL (75-99)
[2019-10-23] MEDS: LEVOFLOXACIN 750 MG TAB PO SCH (21:54)
[2019-10-23 23:11] VITALS: RESP 16; TEMP 98.4
--- NOTE | 2019-10-23 23:35 | P.CONS ---
History of Present Illness - Reason for Consult Consult date: 10/23/[address] chest ?TB Requesting physician: Nathan Leroy - Chief Complaint Cough and hemoptysis x months - History of Present Illness Patient is a 54-year female [facility] on 10/21/2019 for evaluation of cough that has been going on for almost 6 months now the patient cough described to be moderate in intensity did have some yellow sputum and also started having a cough but blood in the sputum for the last few months patient also complaining of feeling weak tired and no energy and did have some chills but denies any night sweats but denies having any weight loss patient 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 last test has been done by the PCP about 2 weeks ago which apparently the patient has been negative patient on presentation the hospital is afebrile and no fever has been recorded for the last 2 days the patient did have a normal white count but did have elevated white blood 15,000 on presentation the patient did have a CT of the chest completed the day before on 10/20/2019 which pains enlarging cavitary lesion left apex infectious etiology should be considered considered to be within the differential neoplasm not excluded patient has been admitted to hospital on negative pressure isolation sputum may be has been requested infectious disease was consulted with concern for possible TB. Review of Systems Positive point has been mentioned HPI rest of the systems negative Past Medical History Past Medical History: Cancer, Diabetes Mellitus, Hyperlipidemia, Hypertension Additional Past Medical History / Comment(s): cervical cancer History of Any Multi-Drug Resistant Organisms: None Reported Past Surgical History: Hysterectomy Past Psychological History: Anxiety, Bipolar, Depression Smoking Status: Current every day smoker Past Alcohol Use History: Rare Past Drug Use History: None Reported - Past Family History Mother Family Medical History: Diabetes Mellitus Medications and Allergies Home Medications Medication Instructions Recorded Confirmed Type DULoxetine HCL [Cymbalta] 60 mg PO DAILY 06/04/16 10/22/19 History Bisoprolol-Hctz 5-6.25 mg [Ziac 1 tab PO DAILY 10/21/19 10/22/19 History 5-6.25 MG] Fluticasone Nasal [place] [Flonase 1 - 2 sprays EA NOSTRIL DAILY 10/21/19 10/22/19 History Nasal [place]] Rosuvastatin [Crestor] 20 mg PO DAILY 10/21/19 10/22/19 History amLODIPine [Norvasc] 10 mg PO DAILY 10/21/19 10/22/19 History sitaGLIPtin PHOS/metFORMIN HCL 1 tab PO DAILY 10/21/19 10/22/19 History [Janumet Xr 100-1,000 mg Tablet] Allergies Allergy/AdvReac Type Severity Reaction Status Date / Time Penicillins Allergy Unknown Verified 10/21/19 18:52 Childhood Physical Exam Vitals: Vital Signs Temp Pulse Resp BP Pulse Ox 10/23/19 23:00 98.4 F 65 16 122/66 96 10/23/19 18:18 69 125/74 10/23/19 18:03 72 133/81 10/23/19 17:48 69 121/76 10/23/19 17:35 74 18 118/71 95 10/23/19 14:30 16 10/23/19 08:00 16 10/23/19 04:35 98.3 F 72 16 116/69 96 Intake and Output 10/23/19 10/23/19 10/24/19 14:59 22:59 06:59 Intake Total 700 Balance 700 Intake: IV 300 Oral 400 Other: Voiding Method Toilet # Voids 2 2 # Bowel Movements 0 Weight 71.35 kg GENERAL DESCRIPTION: Middle-aged female lying in bed, no distress. No tachypnea or accessory muscle of respiration use. HEENT: Shows Pallor , no scleral icterus. Oral mucous membrane is dry. No pharyngeal erythema or thrush NECK: Trachea central, no thyromegaly. LUNGS: Unlabored breathing. Decreased intensity of breath sounds. No wheeze or crackle. HEART: S1, S2, regular rate and rhythm. No loud murmur ABDOMEN: Soft, no tenderness , guarding or rigidity, no organomegaly EXTREMITIES: No edema of feet. SKIN: No rash, no masses palpable. NEUROLOGICAL: The patient is awake, alert, oriented x3, mood and affect normal. Results CBC & Chem 7: 10/23/19 08:53 10/23/19 08:53 Labs: Abnormal Lab Results - Last 24 Hours (Table) 10/23/19 10/23/19 10/23/19 Range/Units 07:32 08:53 08:53 RBC 3.79 L (3.80-5.40) m/uL Plt Count 553 H (150-450) k/uL Sodium 135 L (137-145) mmol/L Creatinine 0.38 L (0.52-1.04) mg/dL Glucose 151 H (74-99) mg/dL POC Glucose (mg/dL) 151 H (75-99) mg/dL 10/23/19 10/23/19 10/23/19 Range/Units 12:00 17:38 21:14 RBC (3.80-5.40) m/uL Plt Count (150-450) k/uL Sodium (137-145) mmol/L Creatinine (0.52-1.04) mg/dL Glucose (74-99) mg/dL POC Glucose (mg/dL) 156 H 154 H 192 H (75-99) mg/dL Microbiology - Last 24 Hours (Table) 10/21/19 18:05 Blood Culture - Preliminary Blood No Growth after 48 hours Assessment and Plan Assessment: patient with a left upper lobe cavitating lesion in this patient who do have significant history of smoking about a pack a day in this patient with no history of TB exposure at work or in the household setting and 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 last test done by the PCP about 2 weeks ago has been negative in this patient with no fever making TB or infectious etiology to be less likely and more likely malignancy patient is scheduled for bronchoscopy this afternoon (1) Cavitary lesion of lung Current Visit: Yes Status: Acute Code(s): J98.4 - OTHER DISORDERS OF LUNG SNOMED Code(s): 978137172 Plan: 1-we will recommend obtaining sputum for AFB stain and culture at the time of bronchoscopy 2-if the AFB stain negative patient can be safely taken off the isolation 3-continue with empiric Levaquin We will follow on clinical condition and cultures to further adjust medication if needed Thank you for this consultation will follow this patient along with you Family at the bedside their questions were answered Time with Patient: Less than 30
[2019-10-24 05:28] VITALS: BP 118/66; PULSE 61
[2019-10-24] MEDS: SODIUM CHLORIDE 0.9% 1,000 ML IV SCH ×2 (06:08→08:19)
[2019-10-24 07:28] LABS: Glucose,Whole Blood 157 mg/dL (75-99)
[2019-10-24] MEDS: INSULIN ASPART (NovoLOG) 100 UNIT/ML VIAL SQ SCH (08:11)
[2019-10-24] MEDS: DULoxetine HCL 60 MG CAPSULE.DR PO SCH (08:12)
[2019-10-24] MEDS: ATORVASTATIN 40 MG TAB PO SCH (08:12)
[2019-10-24] MEDS: amLODIPine 10 MG TAB PO SCH (08:12)
[2019-10-24] MEDS: metFORMIN 500 MG TAB PO SCH (08:12)
[2019-10-24] MEDS: LINAGLIPTIN 5 MG TABLET PO SCH (08:12)
[2019-10-24] MEDS: FLUTICASONE 50MCG/SPRAY NASAL 16GM EA NOSTRIL SCH (08:13)
[2019-10-24] MEDS: BISOPROLOL-HCTZ 5-6.25 MG 1 EACH TAB PO SCH (08:13)
--- NOTE | 2019-10-24 09:57 | P.DS ---
Providers Date of admission: 10/21/19 22:06 Expected date of discharge: 10/24/19 Attending physician: Nathan Leroy Consults: 10/21/19 19:16 Consult Physician Routine Consulting Provider: Arpit Luque Consult Reason/Comments: Cavitating lung lesion Do you want consulting provider notified?: Yes 10/23/19 10:19 Consult Physician Routine Consulting Provider: Corona Champion Consult Reason/Comments: possible AFB or TB Do you want consulting provider notified?: Yes Primary care physician: Nathan Leroy - Discharge Diagnosis(es) (1) Cough with hemoptysis Current Visit: Yes Status: Acute (2) Cough Current Visit: Yes Status: Acute (3) Essential (primary) hypertension Current Visit: Yes Status: Acute (4) Type 2 diabetes mellitus without complications Current Visit: Yes Status: Acute (5) Mixed hyperlipidemia Current Visit: Yes Status: Acute (6) Major depressive disorder, recurrent, moderate Current Visit: Yes Status: Acute (7) Rhinitis Current Visit: Yes Status: Acute (8) Cavitary lesion of lung Current Visit: Yes Status: Acute Hospital Course: This pleasant 54-year-old white female. She's been complaining of coughing for several months. She indicates for the last 6-8 weeks she's been coughing up blood tinged with the mucus. She now reports she been just coughing up blood. In the office a chest x-ray was ordered and it showed a cavitary lesion to the left apex. CT scan did not confirm this. Patient reports try to quit smoking by DFA pending store-bought apple and/or watermelon flavored products. She reports these cause her to cough quite a bit. she denies any recent travel. She likes to attend to her pond outside over the summertime. She has 2 guinea pigs and dogs, but no birds. She is had a TB test in the office was negative. She denies any night sweats or fevers. Denies any chest pains or palpitations. Denies any abdominal pain, nausea vomiting, diarrhea or constipation. After the CT, she was referred to pulmonology outpatient, however after the review the film and he directed her here to the emergency room for further workup. Resting comfortably in isolation in the emergency room. 10/23/2019 bronchoscopy scheduled for today. Breathing significantly improved. Reports mild hemoptysis earlier today. Hemoglobin remained stable, hemoglobin 11.9. Afebrile, normal WBC. Maintaining O2 sats in the high 90s on room air. Denies any chest pain, palpitations. 10/24/2019: Patient underwent bronchoscopy with biopsies and lavage. She is doing well and is currently stable minimal hemoptysis, does continue to cough. Her pulse ox remained in the 90s. She otherwise feels well. Discussed her case Dr. Luque. She seems to go home and does not need isolation this time. He truly believe she has squamous cell lung carcinoma this time. Infectious disease did start her on Levaquin. We'll continue that prescription this time and plan her to follow-up with him only if 5 AFB cultures are abnormal. She will be home bound other than the office visits at this time. Procedures: Bronchoscopy Patient Condition at Discharge: Fair Plan - Discharge Summary Discharge Rx Participant: No New Discharge Prescriptions: New Levofloxacin [Levaquin] 750 mg PO HS #7 tab Benzonatate [Tessalon Perles] 100 mg PO TID PRN #20 cap PRN Reason: Cough Continue DULoxetine HCL [Cymbalta] 60 mg PO DAILY sitaGLIPtin PHOS/metFORMIN HCL [Janumet Xr 100-1,000 mg Tablet] 1 tab PO DAILY Fluticasone Nasal [place] [Flonase Nasal [place]] 1 - 2 sprays EA NOSTRIL DAILY Bisoprolol-Hctz 5-6.25 mg [Ziac 5-6.25 MG] 1 tab PO DAILY amLODIPine [Norvasc] 10 mg PO DAILY Rosuvastatin [Crestor] 20 mg PO DAILY Discharge Medication List DULoxetine HCL [Cymbalta] 60 mg PO DAILY 06/04/16 [History] Bisoprolol-Hctz 5-6.25 mg [Ziac 5-6.25 MG] 1 tab PO DAILY 10/21/19 [History] Fluticasone Nasal [place] [Flonase Nasal [place]] 1 - 2 sprays EA NOSTRIL DAILY 10/21/19 [History] Rosuvastatin [Crestor] 20 mg PO DAILY 10/21/19 [History] amLODIPine [Norvasc] 10 mg PO DAILY 10/21/19 [History] sitaGLIPtin PHOS/metFORMIN HCL [Janumet Xr 100-1,000 mg Tablet] 1 tab PO DAILY 10/21/19 [History] Benzonatate [Tessalon Perles] 100 mg PO TID PRN #20 cap 10/24/19 [Rx] Levofloxacin [Levaquin] 750 mg PO HS #7 tab 10/24/19 [Rx] Follow up Appointment(s)/Referral(s): Nathan Leroy MD [Primary Care Provider] - 1-2 days Arpit Luque MD [STAFF PHYSICIAN] - 3 Days Discharge Disposition: HOME SELF-CARE
--- NOTE | 2019-10-24 10:30 | P.PCN ---
Date of Procedure: 10/24/19 Preoperative Diagnosis: Left upper lobe cavitating mass Postoperative Diagnosis: Left upper lobe cavitating mass Procedure(s) Performed: Bronchoscopy, BAL, TBBX and Brushing of the AYAN Anesthesia: MAC Surgeon: Arpit Luque Acid Blower #1: Jazmín Arndt Estimated Blood Loss (ml): 0 Pathology: other Condition: stable Disposition: floor Operative Findings: This procedure was done under sedation. The procedure was done in the endoscopy suite. The procedure was done with fluoroscopic guidance. After achieving adequate sedation, the flexible bronchoscope was inserted through the right nostril and was advanced into the upper airway. Examination of the posterior pharynx larynx epiglottis and vocal cords was done. Doppler airway structures were all within normal limits. The epiglottis, vallecula, arytenoids and the true and false vocal cords were all within normal limits. A total of 2 mL of 1% lidocaine was applied to the vocal cords and following that the flexible bronchoscope was advanced into the upper trachea. Examination of the tracheal bronchial tree was done. The main trachea him a right mainstem bronchus, right upper lobe bronchus, bronchus intermedius, right middle lobe bronchus and the right lower lobe bronchus along with its various segments and subsegments were within normal limits. Examination of the left settings with the left mainstem bronchus that was within normal limits. Left lower lobe was within normal. Left upper lobe was within normal. The lingular segment was patent. There was some irregularities and atelectatic change in the various segments of the apical posterior and anterior segments of the left upper lobe. Some looseness for secretions were also encountered. At this point, the bronchoscope was wedged to the apical segment of the left upper lobe and a bronchioloalveolar lavage was done during which a total of 80 mL of fluid was infused and 40 mL was suctioned back. Using fluoroscopic guidance, transbronchial biopsies of the left upper lobe cavity was done and several transbuccal biopsies obtained. I also performed a transbronchial brushing of the left upper lobe. The patient tolerated the procedure well. No bleeding was encountered. The bronchoscope was removed. Chest x-ray showed some fluid feeling in her left upper lobe opacity which is probably related to bronchioloalveolar lavage. The samples will be sent for microbial cultures including AFB and cytology. Chest bronchial breath is obese and for histologic evaluation. We'll continue to follow and make further recommendations based on the findings. Procedure was done without any complications.
--- NOTE | 2019-10-24 10:33 | P.PN ---
Subjective Progress Note Date: 10/24/19 On 10/24/2019 the patient is looking well. No complaints. The patient is going to get discharged home today. As mentioned, the patient needs to have an outpatient follow regarding the cavitating large left upper lobe mass. Bronchoscopy was done yesterday without any complications. All of the samples were collected without any complications. We'll be awaiting for results and will make further recommendations accordingly. No other complaints for now. No fever. No hemoptysis. Objective - Vital Signs Vital signs: Vital Signs Temp 98.4 F 10/24/19 05:27 Pulse 61 10/24/19 05:27 Resp 16 10/24/19 05:27 BP 118/66 10/24/19 05:27 Pulse Ox 94 L 10/24/19 05:27 Intake & Output 10/23/19 10/24/19 10/24/19 18:59 06:59 18:59 Intake Total 300 400 Balance 300 400 Weight 71.35 kg Intake: IV 300 Oral 400 Other: Voiding Method Toilet Toilet Toilet # Voids 2 2 # Bowel Movements 0 - Exam The patient appeared well nourished and normally developed. Vital signs as documented. Head exam is unremarkable. No scleral icterus or corneal arcus noted. Neck is without jugular venous distension, thyromegaly, or carotid bruits. Carotid upstrokes are brisk bilaterally. Lungs are clear to auscultation and percussion. Cardiac exam reveals the PMI to be normally sized and situated. Rhythm is regular. First and second heart sounds normal. No murmurs, rubs or gallops. Abdominal exam reveals normal bowel sounds, no masses, no organomegaly and no aortic enlargement. Extremities are nonedematous and both femoral and pedal pulses are normal.Examination of the skin revealed no evidence of significant rashes, suspicious appearing nevi or other concerning lesions. Neurologically awake and alert and is no focal neurological deficit. - Labs CBC & Chem 7: 10/23/19 08:53 10/23/19 08:53 Labs: Abnormal Lab Results - Last 24 Hours (Table) 10/23/19 10/23/19 10/23/19 Range/Units 12:00 17:38 21:14 POC Glucose (mg/dL) 156 H 154 H 192 H (75-99) mg/dL 10/24/19 Range/Units 07:13 POC Glucose (mg/dL) 157 H (75-99) mg/dL Microbiology - Last 24 Hours (Table) 10/23/19 16:15 Gram Stain - Preliminary Bronchial Washings - Left Bronchial Washings Culture - Preliminary 10/23/19 16:15 Fungal Culture - Preliminary Bronchial Washings - Left 10/23/19 16:15 Acid Fast Bacilli Culture - Preliminary Bronchial Washings - Left 10/21/19 18:05 Blood Culture - Preliminary Blood No Growth after 48 hours Assessment and Plan Plan: 1 cavitating 8 cm left upper lobe lesion with a small air-fluid level and characteristics indicating malignancy as the cavity velazquez are rather thick and there is no evidence of any significant mediastinal lymphadenopathy. The p atient has developed also digital clubbing. There is concern for hypertrophic osteoarthropathy in her fingers. High likely for squamous cell carcinoma. It is consistent been negative. TB or atypical mycobacterium is less likely. Lung abscess is also felt to be less likely. Connective tissue diseases causing cavitation of the lung such as Alisia's or lupus or felt to be less likely. 2 hemoptysis secondary to above 3 constitutional symptoms 4 chronic smoker 5 history of cervical cancer 6 diabetes mellitus 2 7 hypertension 8 hyperlipidemia Plan The bronchoscopy was done without any complications. The patient will be discharged home today to be followed up on outpatient basis to discuss the results and we'll proceed accordingly. No other complaints otherwise for now. His cessation counseling was done. The patient made a commitment not to smoke after being discharged home. In terms of microbial analysis, everything is negative thus far. Awaiting further cultures. Awaiting further histology and cytology evaluation from the left upper lobe samples collected yesterday.
--- NOTE | 2019-10-24 15:17 | FL ---
EXAMINATION TYPE: FL bronchoscopy DATE OF EXAM: 10/23/2019 CLINICAL HISTORY: Bronchoscopy fluoroscopic documentation TECHNIQUE: Fluoroscopy. COMPARISON: None. FINDINGS: Fluoroscopic guidance was provided during procedure performed by Dr. Luque. A total of 23 seconds of fluoroscopic time was utilized during the procedure and 1 spot images was acquired. IMPRESSION: As Above.
== END 2019-10-24 11:34 | disposition home or self-care (01) | DRG 181 ==
LOC: EC 16:49 → 5NMEDONC 19:20 → OBSVTOIN 22:06 → 6NMEDSUR 10-22 13:34
PROVIDERS: ADMIT Family Medicine; ATTEND Family Medicine
PROC: 0BD88ZX Extraction of Left Upper Lobe Bronchus, Via Natural or Artificial Opening Endoscopic, Diagnostic (ICD-10-PCS; principal; 2019-10-24)
PROC: 0B9G8ZX Drainage of Left Upper Lung Lobe, Via Natural or Artificial Opening Endoscopic, Diagnostic (ICD-10-PCS; principal; 2019-10-24)
DX: C34.92 Malignant neoplasm of unspecified part of left bronchus or lung (principal); F33.1 Major depressive disorder, recurrent, moderate; J90 Pleural effusion, not elsewhere classified; R04.2 Hemoptysis; E11.9 Type 2 diabetes mellitus without complications; E78.2 Mixed hyperlipidemia; F17.210 Nicotine dependence, cigarettes, uncomplicated; F41.9 Anxiety disorder, unspecified; I10 Essential (primary) hypertension; J31.0 Chronic rhinitis; Z79.899 Other long term (current) drug therapy; Z83.3 Family history of diabetes mellitus; Z85.41 Personal history of malignant neoplasm of cervix uteri; Z90.710 Acquired absence of both cervix and uterus
CPT/HCPCS: 31623; 31624; 31625; 36415; 71045; 80048; 80053; 83036; 83605; 83735; 84132; 84484; 85025; 85610; 85730; 86480; 87040; 87070; 87102; 87116; 87205; 87206; 87252; 87496; 87498; 87502; 87529; 87634; 87798; 88104; 88108; 88305; 88341; 88342; 89050; 93005; 96361; 96365; 96366; 96367; 99285

== ENCOUNTER → 2019-11-06 | Outpatient (CLI) | payer OTHER ==
--- NOTE | 2019-11-09 14:01 | PE ---
Nuclear medicine PET/CT HISTORY: Lung nodule, initial Patient received 11 mCi F-18 FDG intravenously in delayed scanning was performed from the skull base to the mid thighs. Localization and attenuation correction CT was performed. Correlation to CT chest 10/20/2019 Neck and chest: There is hypermetabolic uptake associated with the left upper lobe lung mass in a cir cumferential pattern, the lesion is cavitary, SUV 6.5. Prevascular adenopathy is present with associa joe hypermetabolic uptake, SUV 4.8. Left hilar uptake is also present, SUV 4.4. There is no pleural p ericardial effusion. Coronary artery calcifications are present. ABDOMEN: There is no adrenal mass or adenopathy. No evident liver mass or retroperitoneal adenopathy. Uptake associated with the bowel is likely physiologic. Osseous structures show degenerative disc disease especially along the lumbar spine. No associated hy permetabolic uptake. IMPRESSION: Abnormal hypermetabolic uptake within the left lung and mediastinum
== END | disposition home or self-care (01) ==
LOC: RADPETMAIN 15:32
PROVIDERS: ATTEND Internal Medicine Critical Care Medicine
DX: R91.1 Solitary pulmonary nodule (principal)
CPT/HCPCS: 78815; A9552

== ENCOUNTER → 2019-11-13 | Outpatient (CLI) | payer OTHER ==
--- NOTE | 2019-11-14 00:37 | MR ---
EXAMINATION TYPE: MR brain wo/w con DATE OF EXAM: 11/13/2019 COMPARISON: None HISTORY: Headaches, lung ca CONTRAST: Standard multiplanar, multisequence MRI departmental protocol utilizing 7 mL intravenous Gadavist yuly olinium contrast. Ventricles and sulci appear normal. There is no mass effect nor midline shift. There is no sign of in tracranial hemorrhage. There is no evidence of cerebral edema. There is a single white matter 5 mm high signal focus in the lateral right internal capsule. There is slight increased signal in the marshall bilaterally. There is no evidence of a cortical infarct. The con trast images show no pathologic enhancement. There is normal contrast opacification of the venous sin uses. IMPRESSION: Small area of white matter increased signal in the right internal capsule. Minimal increased signal i n the marshall. No enhancement seen to suggest metastatic disease. This could relate to microvascular isc hemia.
== END | disposition home or self-care (01) ==
LOC: RADMRIMAIN 16:59
PROVIDERS: ATTEND Internal Medicine Hematology & Oncology
DX: C34.12 Malignant neoplasm of upper lobe, left bronchus or lung (principal); R51 Headache
CPT/HCPCS: 70553; A9585

== ENCOUNTER → 2019-11-19 | Outpatient (CLI) | payer OTHER ==
[2019-11-19 16:28] LABS: Basophils # (A) 0.1 k/uL (0-0.2); Basophils % (A) 1 %; Eosinophils # (A) 0.1 k/uL (0-0.7); Eosinophils % (A) 1 %; HCT 36.1 % (34.0-46.0); HGB 11.6 gm/dL (11.4-16.0); Hypochromasia Slight; Lymphocytes # (A) 1.7 k/uL (1.0-4.8); Lymphocytes % (A) 15 %; MCH 28.8 pg (25.0-35.0); MCHC 32.2 g/dL (31.0-37.0); MCV 89.3 fL (80.0-100.0); Monocytes # (A) 0.3 k/uL (0-1.0); Monocytes % (A) 3 %; Neutrophils # (A) 8.7 k/uL (1.3-7.7); Neutrophils % (A) 77 %; Platelet Count 512 k/uL (150-450); RBC 4.04 m/uL (3.80-5.40); RDW 13.8 % (11.5-15.5); WBC 11.4 k/uL (3.8-10.6)
[2019-11-19 16:35] LABS: Partial Thromboplastin Time 23.9 sec (22.0-30.0)
[2019-11-19 16:36] LABS: African American GFR (CKD) >90 (>60 ml/min/1.73 sqM); Anion Gap 9 mmol/L; Blood Urea Nitrogen 13 mg/dL (7-17); Carbon Dioxide 27 mmol/L (22-30); Chloride 100 mmol/L (98-107); Glucose 126 mg/dL (74-99); Non-African American GFR(CKD) >90 (>60 ml/min/1.73 sqM); Potassium 4.5 mmol/L (3.5-5.1); Sodium 136 mmol/L (137-145)
== END | disposition home or self-care (01) ==
LOC: LABPAT 15:57
PROVIDERS: ATTEND Thoracic Surgery (Cardiothoracic Vascular Surgery)
DX: Z01.812 Encounter for preprocedural laboratory examination (principal)
CPT/HCPCS: 80051; 82565; 82947; 84520; 85025; 85610; 85730

== ENCOUNTER 2019-11-24 13:02 | Emergency (ER) | payer OTHER ==
[2019-11-24 13:17] VITALS: RESP 18; TEMP 98.1
[2019-11-24] MEDS ORDERED: SODIUM CHLORIDE 0.9% 1,000 ML IV STA (14:14)
[2019-11-24] MEDS ORDERED: SODIUM CHLORIDE 0.9% 500 ML 500 ML IV STA (14:14)
[2019-11-24 14:32] LABS: Basophils % (A) 0 %; Eosinophils # (A) 0.1 k/uL (0-0.7); Eosinophils % (A) 0 %; HCT 35.6 % (34.0-46.0); HGB 11.6 gm/dL (11.4-16.0); Lymphocytes # (A) 1.2 k/uL (1.0-4.8); Lymphocytes % (A) 8 %; MCH 28.5 pg (25.0-35.0); MCHC 32.6 g/dL (31.0-37.0); MCV 87.6 fL (80.0-100.0); Mean Platelet Volume 6.9; Monocytes # (A) 0.5 k/uL (0-1.0); Monocytes % (A) 3 %; Neutrophils # (A) 13.1 k/uL (1.3-7.7); Neutrophils % (A) 86 %; Platelet Count 494 k/uL (150-450); RBC 4.06 m/uL (3.80-5.40); RDW 13.9 % (11.5-15.5); WBC 15.2 k/uL (3.8-10.6)
[2019-11-24 14:40] LABS: INR 0.9 (<1.2); Partial Thromboplastin Time 22.8 sec (22.0-30.0); Prothrombin Time 9.9 sec (9.0-12.0)
[2019-11-24 14:54] LABS: ALT 7 U/L (4-34); AST 17 U/L (14-36); African American GFR (CKD) >90 (>60 ml/min/1.73 sqM); Albumin 3.8 g/dL (3.5-5.0); Alkaline Phosphatase 104 U/L (38-126); Anion Gap 8 mmol/L; Blood Urea Nitrogen 12 mg/dL (7-17); Calcium 9.2 mg/dL (8.4-10.2); Carbon Dioxide 26 mmol/L (22-30); Chloride 97 mmol/L (98-107); Creatine Kinase 22 U/L (30-135); Glucose 158 mg/dL (74-99); Magnesium 1.7 mg/dL (1.6-2.3); Non-African American GFR(CKD) >90 (>60 ml/min/1.73 sqM); Potassium 4.4 mmol/L (3.5-5.1); Sodium 131 mmol/L (137-145); Total Bilirubin 0.7 mg/dL (0.2-1.3); Total Protein 7.2 g/dL (6.3-8.2)
--- NOTE | 2019-11-24 15:05 | CT ---
EXAMINATION TYPE: CT brain wo con DATE OF EXAM: 11/24/2019 COMPARISON: NONE HISTORY: Syncopal episode today with Right supra-orbital injury. CT DLP: 1087.4 mGycm. Automated Exposure Control for Dose Reduction was Utilized. TECHNIQUE: CT scan of the head is performed without contrast. FINDINGS: There is no acute intracranial hemorrhage, mass effect, or midline shift identified. The ventricles and sulci are within normal limits in size. The globes are intact and the visualized sin uses are clear. Mild right preseptal periorbital fat stranding without discrete hematoma. Globes are symmetric, lenses are in place, and extraocular muscles are unremarkable. Partially visualized incide ntal right meghann bullosa. Incidentally noted low-lying cerebellar tonsils without herniation. IMPRESSION: Mild right periorbital preseptal fat stranding. No hematoma. Findings could relate to co ntusion or cellulitis. No acute intracranial hemorrhage, mass effect, or midline shift is seen.
--- NOTE | 2019-11-24 15:29 | ED ---
Dizziness HPI - General Chief Complaint: Syncope Stated Complaint: Syncope Time Seen by Provider: 11/24/19 14:03 Source: patient, RN notes reviewed Mode of arrival: wheelchair Limitations: no limitations - History of Present Illness Initial Comments: This is a 54-year-old female presents emergency Department chief complaint of syncopal episode. Patient states that that she has not felt well over the last day or so. Patient states he went to go to her appointment at [facility] states that she started feeling lightheaded and dizzy when she was walking and states that she sat down and reportedly passed out. She states she does not remember though she has a small colton above her right eye. Patient states she has no significant pain no headache no current blurred vision or any focal weakness. Patient does admit that she's had recent diagnosis of lung cancer from CT last month. She's had some intermittent mid chest pain associated with this in the past but no current or recent chest pain or shortness of breath. Denies any nausea vomiting she states that she's felt very achy all over but no reported fevers or chills. Patient denies any prior syncopal episodes in the past. Patient states that her oncologist is Dr. Gutierrez. Patient has not started any former treatment at this time. She is scheduled for biopsy. - Related Data Home Medications Medication Instructions Recorded Confirmed DULoxetine HCL [Cymbalta] 60 mg PO DAILY 06/04/16 10/22/19 Bisoprolol-Hctz 5-6.25 mg [Ziac 1 tab PO DAILY 10/21/19 10/22/19 5-6.25 MG] Fluticasone Nasal [place] [Flonase 1 - 2 sprays EA NOSTRIL DAILY 10/21/19 10/22/19 Nasal [place]] Rosuvastatin [Crestor] 20 mg PO DAILY 10/21/19 10/22/19 amLODIPine [Norvasc] 10 mg PO DAILY 10/21/19 10/22/19 sitaGLIPtin PHOS/metFORMIN HCL 1 tab PO DAILY 10/21/19 10/22/19 [Janumet Xr 100-1,000 mg Tablet] Previous Rx's Medication Instructions Recorded Benzonatate [Tessalon Perles] 100 mg PO TID PRN #20 cap 10/24/19 Levofloxacin [Levaquin] 750 mg PO HS #7 tab 10/24/19 Allergies Allergy/AdvReac Type Severity Reaction Status Date / Time Penicillins Allergy Unknown Verified 10/21/19 18:52 Childhood Review of Systems ROS Statement: Those systems with pertinent positive or pertinent negative responses have been documented in the HPI. ROS Other: All systems not noted in ROS Statement are negative. Past Medical History Past Medical History: Cancer, Diabetes Mellitus, Hyperlipidemia, Hypertension Additional Past Medical History / Comment(s): cervical cancer History of Any Multi-Drug Resistant Organisms: None Reported Past Surgical History: Hysterectomy Past Psychological History: Anxiety, Bipolar, Depression Smoking Status: Former smoker Past Alcohol Use History: Rare Past Drug Use History: None Reported - Past Family History Mother Family Medical History: Diabetes Mellitus General Exam Limitations: no limitations General appearance: alert, in no apparent distress Head exam: Present: atraumatic, normocephalic, normal inspection Eye exam: Present: normal appearance, PERRL, EOMI. Absent: scleral icterus, conjunctival injection, periorbital swelling ENT exam: Present: normal exam, normal oropharynx, mucous membranes moist Neck exam: Present: normal inspection, full ROM. Absent: tenderness, meningismus, lymphadenopathy Respiratory exam: Present: wheezes (Faint), decreased breath sounds. Absent: normal lung sounds bilaterally, respiratory distress, rales, rhonchi, stridor Cardiovascular Exam: Present: regular rate, normal rhythm, normal heart sounds. Absent: systolic murmur, diastolic murmur, rubs, gallop, clicks Neurological exam: Present: alert, oriented X3, CN II-XII intact, reflexes normal. Absent: motor sensory deficit Skin exam: Present: warm, dry, intact, normal color. Absent: rash Course Vital Signs 11/24/19 11/24/19 13:14 16:38 Temperature 98.1 F Pulse Rate 70 78 Respiratory 18 18 Rate Blood Pressure 124/67 159/92 O2 Sat by Pulse 99 99 Oximetry Medical Decision Making - Medical Decision Making 54-year-old female presented for syncopal episode. Patient complete workup including EKG, labs, chest x-ray CT of brain with no acute findings. Patient is asymptomatic at this time. Case discussed with Dr. Alvarez on-call for Dr. Leroy recommends patient be discharged and follow-up in office tomorrow re turn parameters discussed patient agrees with this plan. - Lab Data Result diagrams: 11/24/19 14:22 11/24/19 14:22 Lab Results 11/24/19 11/24/19 11/24/19 Range/Units 14:22 14:22 14:22 WBC 15.2 H (3.8-10.6) k/uL RBC 4.06 (3.80-5.40) m/uL Hgb 11.6 (11.4-16.0) gm/dL Hct 35.6 (34.0-46.0) % MCV 87.6 (80.0-100.0) fL MCH 28.5 (25.0-35.0) pg MCHC 32.6 (31.0-37.0) g/dL RDW 13.9 (11.5-15.5) % Plt Count 494 H (150-450) k/uL Neutrophils % 86 % Lymphocytes % 8 % Monocytes % 3 % Eosinophils % 0 % Basophils % 0 % Neutrophils # 13.1 H (1.3-7.7) k/uL Lymphocytes # 1.2 (1.0-4.8) k/uL Monocytes # 0.5 (0-1.0) k/uL Eosinophils # 0.1 (0-0.7) k/uL Basophils # 0.0 (0-0.2) k/uL PT 9.9 (9.0-12.0) sec INR 0.9 (<1.2) APTT 22.8 (22.0-30.0) sec Sodium 131 L (137-145) mmol/L Potassium 4.4 (3.5-5.1) mmol/L Chloride 97 L (98-107) mmol/L Carbon Dioxide 26 (22-30) mmol/L Anion Gap 8 mmol/L BUN 12 (7-17) mg/dL Creatinine 0.52 (0.52-1.04) mg/dL Est GFR (CKD-EPI)AfAm >90 (>60 ml/min/1.73 sqM) Est GFR (CKD-EPI)NonAf >90 (>60 ml/min/1.73 sqM) Glucose 158 H (74-99) mg/dL Calcium 9.2 (8.4-10.2) mg/dL Magnesium 1.7 (1.6-2.3) mg/dL Total Bilirubin 0.7 (0.2-1.3) mg/dL AST 17 (14-36) U/L ALT 7 (4-34) U/L Alkaline Phosphatase 104 (38-126) U/L Creatine Kinase 22 L (30-135) U/L Troponin I (0.000-0.034) ng/mL Total Protein 7.2 (6.3-8.2) g/dL Albumin 3.8 (3.5-5.0) g/dL 11/24/19 Range/Units 14:22 WBC (3.8-10.6) k/uL RBC (3.80-5.40) m/uL Hgb (11.4-16.0) gm/dL Hct (34.0-46.0) % MCV (80.0-100.0) fL MCH (25.0-35.0) pg MCHC (31.0-37.0) g/dL RDW (11.5-15.5) % Plt Count (150-450) k/uL Neutrophils % % Lymphocytes % % Monocytes % % Eosinophils % % Basophils % % Neutrophils # (1.3-7.7) k/uL Lymphocytes # (1.0-4.8) k/uL Monocytes # (0-1.0) k/uL Eosinophils # (0-0.7) k/uL Basophils # (0-0.2) k/uL PT (9.0-12.0) sec INR (<1.2) APTT (22.0-30.0) sec Sodium (137-145) mmol/L Potassium (3.5-5.1) mmol/L Chloride (98-107) mmol/L Carbon Dioxide (22-30) mmol/L Anion Gap mmol/L BUN (7-17) mg/dL Creatinine (0.52-1.04) mg/dL Est GFR (CKD-EPI)AfAm (>60 ml/min/1.73 sqM) Est GFR (CKD-EPI)NonAf (>60 ml/min/1.73 sqM) Glucose (74-99) mg/dL Calcium (8.4-10.2) mg/dL Magnesium (1.6-2.3) mg/dL Total Bilirubin (0.2-1.3) mg/dL AST (14-36) U/L ALT (4-34) U/L Alkaline Phosphatase (38-126) U/L Creatine Kinase (30-135) U/L Troponin I <0.012 (0.000-0.034) ng/mL Total Protein (6.3-8.2) g/dL Albumin (3.5-5.0) g/dL Disposition Clinical Impression: Vasovagal syncope Disposition: HOME SELF-CARE Condition: Stable Instructions (If sedation given, give patient instructions): Syncope (ED) Additional Instructions: Please return to the Emergency Department if symptoms worsen or any other concerns. Is patient prescribed a controlled substance at d/c from ED?: No Referrals: Nathan Leroy MD [Primary Care Provider] - 1-2 days Time of Disposition: 16:49
--- NOTE | 2019-11-24 15:35 | XR ---
EXAMINATION TYPE: XR chest 2V DATE OF EXAM: 11/24/2019 COMPARISON: 10/23/2019 HISTORY: Dizziness. History of lung cancer. TECHNIQUE: Frontal and lateral views of the chest are obtained. FINDINGS: Cavitary mass in the left upper lobe measures up to 8.2 cm. Improved aeration of the surro unding lung. Remainder the lungs are well aerated. Mild emphysematous changes. Cardiomediastinal silh ouette is stable. No acute osseous pathology. IMPRESSION: Redemonstration of a cavitary left upper lobe mass. No additional consolidation or mass. Improved aeration lungs in comparison the prior. Mild COPD.
[2019-11-24 16:40] VITALS: BP 159/92; PULSE 78
[2019-11-24 16:58] LABS: Appearance,Urine Clear (Clear); Bilirubin,Urine Negative (Negative); Blood,Urine Negative (Negative); Color,Urine Light Yellow; Glucose,Urine (UA) Negative (Negative); Ketones,Urine Negative (Negative); Leukocyte Esterase,Urine Negative (Negative); Nitrite,Urine Negative (Negative); PH, Urine 6.5 (5.0-8.0); Protein,Urine Negative (Negative); Specific Gravity,Urine 1.004 (1.001-1.035); Urobilinogen,Urine <2.0 mg/dL (<2.0)
== END 2019-11-24 17:42 | disposition home or self-care (01) ==
LOC: EC 13:02
DX: R55 Syncope and collapse (principal); R42 Dizziness and giddiness; E11.9 Type 2 diabetes mellitus without complications; E78.5 Hyperlipidemia, unspecified; I10 Essential (primary) hypertension; F41.9 Anxiety disorder, unspecified; F31.9 Bipolar disorder, unspecified; Z79.84 Long term (current) use of oral hypoglycemic drugs; Z79.899 Other long term (current) drug therapy; Z88.0 Allergy status to penicillin; Z87.891 Personal history of nicotine dependence; Z85.41 Personal history of malignant neoplasm of cervix uteri; Z85.118 Personal history of other malignant neoplasm of bronchus and lung
CPT/HCPCS: 36415; 70450; 71046; 80053; 81003; 82550; 83735; 84484; 85025; 85610; 85730; 93005; 96360; 96361; 99284

== ENCOUNTER 2019-12-02 07:34 | Day surgery (SDC) | payer OTHER ==
[2019-11-30 11:36] VITALS: BMI 22.9
[~2019-12-02 07:34] MED LIST: DEXAMETHASONE SOD PHOSPHATE 10 MG/ML 1 ML VIAL IV ONE; LACTATED RINGERS 1,000 ML IV SCH; LIDOCAINE 1% (10MG/ML) FOR IV START INTRADERMA PRN; MIDAZOLAM 2 MG/2 ML VIAL IV PRN; ONDANSETRON 4 MG/2 ML VIAL IVP ONE; SCOPOLAMINE 1.5MG/72HR PATCH TRANSDERM ONE
[2019-12-02 08:04] LABS: Glucose,Whole Blood 171 mg/dL (75-99)
[2019-12-02] MEDS ORDERED: NEOSTIGMINE 1 MG/ML 10 ML VIAL ONE (08:38)
[2019-12-02] MEDS ORDERED: PROPOFOL 10 MG/ML 20 ML VIAL IV ONE (08:38)
[2019-12-02] MEDS ORDERED: ePHEDrine SULFATE/0.9% NACL/PF 50 MG/5 ML SYRINGE IV ONE (08:38)
[2019-12-02] MEDS ORDERED: MIDAZOLAM 2 MG/2 ML VIAL ONE (08:38)
[2019-12-02] MEDS ORDERED: ALBUTEROL INHALER 60 PUFF/8 GM INHALER INHALATION ONE (08:38)
[2019-12-02] MEDS ORDERED: ROCURONIUM BROMIDE 10 MG/ML 5 ML VIAL IV ONE (08:38)
[2019-12-02] MEDS ORDERED: GLYCOPYRROLATE 0.2 MG/ML 2 ML VIAL ONE (08:38)
[2019-12-02] MEDS ORDERED: PHENYLEPHRINE-0.9% NACL SYG 1 MG/10 ML SYRINGE ONE (08:38)
[2019-12-02] MEDS ORDERED: fentaNYL (PF) 50 MCG/ML 2 ML AMP ONE (08:38)
[2019-12-02] MEDS: HYDROmorphone 0.5 MG/0.5 ML SYRINGE IVP PRN ×4 (10:10→10:33)
[2019-12-02 10:20] VITALS: TEMP 97.2
--- NOTE | 2019-12-02 10:23 | P.OP ---
Date of Procedure: 12/02/19 Preoperative Diagnosis: Lung cancer left upper lobe with enlarged AP window lymph node positive on PET Postoperative Diagnosis: Same Procedure(s) Performed: Left anterior mediastinotomy with lymph node biopsy Anesthesia: JEANNINEA Surgeon: Teddy Wilkins Estimated Blood Loss (ml): 10 IV fluids (ml): 1,000 Urine output (ml): 0 Pathology: other (Left anterior mediastinal lymph nodes for frozen section, permanent section, culture. AP window lymph node for permanent section) Condition: stable Disposition: PACU Indications for Procedure: 54-year-old female with cavitary mass in the left upper lobe biopsy-proven adenocarcinoma. There is positive uptake in the hilum and in the AP window on PET. There is enlarged lymph nodes present in the AP window as well as diffuse mediastinal adenopathy. Biopsy of the mediastinal lymph nodes was requested prior to beginning treatment in order to confirm staging as IIIa. Operative Findings: There were multiple small lymph nodes present in the anterior mediastinal fat. Frozen section of one of these showed normal lymph node. Deeper in the mediastinum in the AP window there was a large node. It appeared different grossly from the previously biopsied nodes. Description of Procedure: Patient was brought to the operating room, placed supine on the operating table, anesthetized and intubated. The left arm was placed out on the arm board and the right tucked at the side. The anterior chest and left lateral chest was sterilely prepped and draped. Incision was made over the third costal cartilage on the left-hand side and carried down through skin and subcutaneous tissue to the costal cartilage. Pectoralis muscle was split in the direction of its fibers overlying the costal cartilage. Perichondrium was incised with the Bovie in a subperichondrial resection of the costal cartilage was performed. Posterior perichondrium was opened and the internal mammary artery identified. It was ligated proximally and distally with 0 silk ties and divided. Blunt dissection was carried into the mediastinum. There were multiple small nodes noted in the anterior mediastinal fat and portion was sent for frozen section. Further portions were sent for culture and permanent section. Dissection deeper revealed a enlarged lymph node in the AP window. This was barbie in color. It was measured about 2 cm in maximal diameter. It was resected. There was a vein in this area which did bleed and was clipped. No significant blood loss was encountered. Once we had the AP window lymph nodes biopsied they were sent for permanent section. The area was packed and good hemostasis was verified. Packing was removed and the perichondrium was closed with 2-0 Vicryl. The muscle was closed with 2-0 Vicryl. Subcutaneous and subcuticular layers were closed with 3-0 Vicryl. Skin glue and dry sterile dressing were applied. Plan - Discharge Summary Discharge Rx Participant: Yes New Discharge Prescriptions: New traMADol HCL [Ultram] 50 mg PO Q6HR PRN 3 Days #12 tab PRN Reason: Pain No Action DULoxetine HCL [Cymbalta] 60 mg PO DAILY sitaGLIPtin PHOS/metFORMIN HCL [Janumet Xr 100-1,000 mg Tablet] 1 tab PO DAILY Bisoprolol-Hctz 5-6.25 mg [Ziac 5-6.25 MG] 1 tab PO DAILY amLODIPine [Norvasc] 10 mg PO DAILY Acetaminophen Tab [Tylenol] 325 mg PO DIRECTED PRN PRN Reason: Pain Metformin (Unknown Dose) 1 dose PO DIRECTED Discharge Medication List DULoxetine HCL [Cymbalta] 60 mg PO DAILY 06/04/16 [History] Bisoprolol-Hctz 5-6.25 mg [Ziac 5-6.25 MG] 1 tab PO DAILY 10/21/19 [History] amLODIPine [Norvasc] 10 mg PO DAILY 10/21/19 [History] sitaGLIPtin PHOS/metFORMIN HCL [Janumet Xr 100-1,000 mg Tablet] 1 tab PO DAILY 10/21/19 [History] Acetaminophen Tab [Tylenol] 325 mg PO DIRECTED PRN 11/30/19 [History] Metformin (Unknown Dose) 1 dose PO DIRECTED 11/30/19 [History] traMADol HCL [Ultram] 50 mg PO Q6HR PRN 3 Days #12 tab 12/02/19 [Rx] Follow up Appointment(s)/Referral(s): Teddy Wilkins MD [STAFF PHYSICIAN] - 12/10/19 1:00 pm Activity/Diet/Wound Care/Special Instructions: DISCHARGE INSTRUCTIONS: 1. Continue pain control per as needed orders. Alternate acetaminophen and ibuprofen for pain. 2. Continue with incentive spirometry and splinting until otherwise directed by the physician. 3. Leave dressing in place for 24 hours. After the 24 hours remove all dressings and shower daily. 4. Routine incision care. No powders, lotions, or ointments on incision. 5. Please call surgeon/LANDFILL ATTENDANT for temperature greater than 101F or drainage from the incision. Don [phone] Discharge Disposition: HOME SELF-CARE
[2019-12-02 10:48] LABS: HCT 31.9 % (34.0-46.0); HGB 10.2 gm/dL (11.4-16.0); MCH 27.9 pg (25.0-35.0); MCV 87.2 fL (80.0-100.0); Mean Platelet Volume 6.9; Platelet Count 424 k/uL (150-450); RBC 3.66 m/uL (3.80-5.40); RDW 13.9 % (11.5-15.5); WBC 11.6 k/uL (3.8-10.6)
[2019-12-02 10:59] LABS: African American GFR (CKD) >90 (>60 ml/min/1.73 sqM); Anion Gap 9 mmol/L; Blood Urea Nitrogen 13 mg/dL (7-17); Calcium 8.7 mg/dL (8.4-10.2); Carbon Dioxide 27 mmol/L (22-30); Chloride 100 mmol/L (98-107); Glucose 234 mg/dL (74-99); Non-African American GFR(CKD) >90 (>60 ml/min/1.73 sqM); Potassium 3.9 mmol/L (3.5-5.1); Sodium 136 mmol/L (137-145)
--- NOTE | 2019-12-02 11:08 | XR ---
EXAMINATION TYPE: XR chest 1V portable DATE OF EXAM: 12/02/2019 Comparison: 11/24/2019 Clinical History: 54-year-old female Postoperative mediastinoscopy Findings: Heart upper limits of normal in size. Large thick-walled cavitary in the left apex measuring approxi mately 9.1 cm. No significant pleural effusion. No pneumomediastinum identified. Impression: Known cavitary mass left apex. No acute change.
[2019-12-02] MEDS ORDERED: LACTATED RINGERS 1,000 ML IV ONE ×2 (11:10)
[2019-12-02] MEDS ORDERED: INSULIN ASPART (NovoLOG) 100 UNIT/ML VIAL SQ ONE (11:19)
[2019-12-02 11:59] VITALS: RESP 16
[2019-12-02] MEDS ORDERED: traMADol 50 MG TAB PO ONE (12:07)
[2019-12-02 12:26] VITALS: BP 142/77; PULSE 74
== END 2019-12-02 12:52 | disposition home or self-care (01) ==
LOC: OR 07:34
PROVIDERS: ATTEND Thoracic Surgery (Cardiothoracic Vascular Surgery)
DX: C34.12 Malignant neoplasm of upper lobe, left bronchus or lung (principal); E11.9 Type 2 diabetes mellitus without complications; I10 Essential (primary) hypertension; Z90.710 Acquired absence of both cervix and uterus; Z87.891 Personal history of nicotine dependence; Z80.1 Family history of malignant neoplasm of trachea, bronchus and lung; Z85.41 Personal history of malignant neoplasm of cervix uteri; F32.9 Major depressive disorder, single episode, unspecified; Z79.84 Long term (current) use of oral hypoglycemic drugs; Z79.899 Other long term (current) drug therapy; Z88.0 Allergy status to penicillin
CPT/HCPCS: 88305; 80048; 85027; 88331; 87070; 87205; 87075; 87116; 87102; 87206; 71045; 39010; J2250; J1100; J2710; J0690; J2405; J3010; J2370; J2704; J1170

== ENCOUNTER → 2019-12-28 | Outpatient (CLI) | payer OTHER | END | disposition home or self-care (01) | CPT/HCPCS: 36415; 80051; 81001; 82565; 82947; 84520; 85025; 85610; 85730; 87086 ==

== ENCOUNTER 2019-12-31 05:53 | Inpatient (IN) | payer OTHER ==
[2019-12-31] MEDS ORDERED: LIDOCAINE 1% (10MG/ML) FOR IV START INTRADERMA PRN (05:54)
[2019-12-31] MEDS ORDERED: ONDANSETRON 4 MG/2 ML VIAL IVP ONE (05:54)
[2019-12-31] MEDS ORDERED: DEXAMETHASONE SOD PHOSPHATE 10 MG/ML 1 ML VIAL IV ONE (05:54)
[2019-12-31] MEDS ORDERED: MIDAZOLAM 2 MG/2 ML VIAL IV PRN (05:54)
[2019-12-31] MEDS ORDERED: LACTATED RINGERS 1,000 ML IV SCH (05:54)
[2019-12-31] MEDS ORDERED: METOCLOPRAMIDE 5 MG/ML 2 ML VIAL IVP PRN (05:54)
[2019-12-31 06:28] LABS: Glucose,Whole Blood 302 mg/dL (75-99)
[2019-12-31] MEDS ORDERED: INSULIN ASPART (NovoLOG) 100 UNIT/ML VIAL SQ ONE (06:42)
[2019-12-31] MEDS ORDERED: PHENYLEPHRINE-0.9% NACL SYG 1 MG/10 ML SYRINGE ONE (07:25)
[2019-12-31] MEDS ORDERED: MIDAZOLAM 2 MG/2 ML VIAL ONE (07:25)
[2019-12-31] MEDS ORDERED: ROCURONIUM BROMIDE 10 MG/ML 5 ML VIAL IV ONE (07:25)
[2019-12-31] MEDS ORDERED: HYDROmorphone (PF) 1 MG/ML ONE (07:25)
[2019-12-31] MEDS ORDERED: LIDOCAINE 1% INJ 10MG/ML (20 ML MDV) ONE (07:25)
[2019-12-31] MEDS ORDERED: fentaNYL (PF) 50 MCG/ML 2 ML AMP ONE (07:25)
[2019-12-31] MEDS ORDERED: SUCCINYLCHOLINE CHLORIDE 100 MG/5 ML SYR IV ONE (07:25)
[2019-12-31] MEDS ORDERED: GLYCOPYRROLATE 0.2 MG/ML 2 ML VIAL ONE (07:25)
[2019-12-31] MEDS ORDERED: NEOSTIGMINE 1 MG/ML 10 ML VIAL ONE (07:25)
[2019-12-31] MEDS ORDERED: PROPOFOL 10 MG/ML 20 ML VIAL IV ONE (07:25)
[2019-12-31] MEDS ORDERED: BUPIVACAINE (PF) 0.5% 30 ML VIAL SQ ONE ×2 (08:21)
[2019-12-31] MEDS ORDERED: LACTATED RINGERS 1,000 ML IV ONE ×2 (08:37→11:47)
--- NOTE | 2019-12-31 11:51 | P.OP ---
Date of Procedure: 12/31/19 Preoperative Diagnosis: Lung cancer left upper lobe Postoperative Diagnosis: Same Procedure(s) Performed: Left robotic-assisted thoracoscopic upper lobectomy with mediastinal lymph node dissection and bronchoscopy for mucus plugging conclusion of case Anesthesia: GETA Surgeon: Teddy Wilkins Head Of Maintenance #1: Kings Sosa Estimated Blood Loss (ml): 300 IV fluids (ml): 1,500 Urine output (ml): 300 Pathology: other (Left upper lobe for permanent section and frozen section of bronchial margin, lymph node stations L8 L 9 L 10 L 11 and level 7) Condition: stable Disposition: PACU Indications for Procedure: 54-year-old female with large centrally necrotic tumor in the left upper lobe biopsy-proven adenocarcinoma. She had hilar and mediastinal adenopathy was positive uptake by PET. She underwent [place] procedure biopsy of the level V and 6 lymph nodes which were negative. We therefore opted to proceed with lobectomy. Operative Findings: Large left upper lobe tumor in the near the apex with significant adhesion of the upper lobe to the pleura superiorly and apically. In taking this down there was considerable drainage from the lung itself from the necrotic mass. A ttention was redirected to the inferior pulmonary ligament. Extensive anthracotic lymphadenopathy adenopathy. Negative bronchial margin by frozen section. Description of Procedure: The patient was brought to the operating room, placed supine on the operating table anesthetized and intubated. Double lumen endotracheal tube was placed and positioned with fiberoptic bronchoscopy and secured patient was turned into the right lateral decubitus position. She was appropriately positioned for robotic lobectomy. The left chest was sterilely prepped and draped. For robotic ports were placed 3 in the eighth interspace and the fourth more superiorly. Working port was placed between the 2 most anterior port. The robot was docked. We then explored the chest.This was taken down. Dissection was carried posteriorly and the level IX and 8 lymph nodes were dissected we dissected between the superior pulmonary vein and mainstem bronchus down into the mediastinum and res ected level VII lymph nodes. The upper portion of the lung was inflated adherent superiorly and in the apex. We began taking down these adhesions and got into some mild bleeding as well as losing of necrotic material out of the lung. And she was redirected to the fissure which was noted to be complete. We began dissection in the fissure and then. Dressed our attention to the inferior pulmonary ligament. The inferior pulmonary ligament was taken down to the superior pulmonary vein. The L8 and L9 lymph nodes were resected. Attention was then directed between the superior pulmonary vein and the mainstem bronchus and the level VII lymph nodes were dissected out into the mediastinum. We then resected up along the mainstem bronchus resecting the level X lymph nodes. Dissection was carried onto the pulmonary artery and the fissures were incomplete and were dissected. We dissected out the lingular branch of the pulmonary artery leading to the upper lobe and ligated and divided this with a robotic stapler. We next dissected out the lymph nodes in the bifurcation of the left mainstem bronchus and sent these as L 11 lymph nodes. The upper lobe bronchus was then encircled and ligated and divided with a robotic stapler. We encircled the superior pulmonary vein and divided it with a robotic stapler. We now able to dissected out the 2 remaining branches of the pulmonary artery to the upper lobe and ligate these individually with robotic stapler. Pleural connections of the upper lobe were completed and dissection was reviewed dressed to the adhesions at the apex of the lung. Once this had been freed up the specimen was placed in an Endo Catch bag. The robot was undocked. The working port incision was enlarged and the Endo Catch bag was brought through the chest. Lobectomy specimen was sent for frozen section of the bronchial margin which returned negative. The chest was irrigated. There was some bleeding from high intercostal artery and second intercostal space and this was ligated with clips. Once we had achieved good hemostasis the chest was irrigated out. The lung was switched to two lung ventilation but did not initially expand. The pediatric bronchoscope was passed and we were able to get air into the lower lobe. There was no air leak noted. We irrigated some more and placed in 28-[place] chest tube posterior apically through the most anterior incision and secured it with an 0 Ethibond suture. The incisions were then closed with layers of Vicryl suture dry sterile dressings were applied. Patient was turned supine and reintubated with a single lumen endotracheal tube and bronchoscope with interventional Bronch to clear the bronchial passageways of mucus. Patient was subsequently extubated and transferred to recovery room in stable condition.
[2019-12-31] MEDS: HYDROmorphone 0.5 MG/0.5 ML SYRINGE IVP PRN ×2 (12:41→12:48)
[2019-12-31 12:55] LABS: Glucose,Whole Blood 278 mg/dL (75-99)
--- NOTE | 2019-12-31 13:00 | XR ---
EXAMINATION TYPE: XR chest 1V DATE OF EXAM: 12/31/2019 COMPARISON: 12/02/2019 HISTORY: Status post lobectomy TECHNIQUE: Single frontal view of the chest is obtained. FINDINGS: Patient is status post lobectomy with surgical clips along the left upper lobe. Thoracosto my tube is seen on the left along the left mediastinal border. Patchy airspace disease in the left mi dlung likely is from atelectasis. Slight leftward mediastinal shift from left-sided volume loss. Ther e is a trace amount of air seen deep to the right hemidiaphragm however this crosses midline and coul d represent artifact that is external to the patient. Right lung remains well aerated. Diffuse osseou s demineralization seen. IMPRESSION: Status post left upper lobectomy with left midlung airspace disease likely on the basis of atelectasis. Possible trace pneumoperitoneum versus external artifact. Attention on follow-up exam s.
[2019-12-31] MEDS ORDERED: IPRATROPIUM-ALBUTEROL 3 ML NEB IH PRN (13:56)
[2019-12-31] MEDS ORDERED: ONDANSETRON 4 MG/2 ML VIAL IVP PRN (13:56)
[2019-12-31] MEDS ORDERED: SODIUM CHLORIDE 0.9% 1,000 ML IV SCH (13:56)
[2019-12-31] MEDS ORDERED: BISACODYL 10 MG SUPP RECTAL PRN (13:56)
[2019-12-31 14:11] LABS: Glucose,Whole Blood 261 mg/dL (75-99)
--- NOTE | 2019-12-31 14:22 | XR ---
EXAMINATION TYPE: XR chest 1V DATE OF EXAM: 12/31/2019 COMPARISON: 12/31/2019 HISTORY: Post left upper lobectomy TECHNIQUE: Single frontal view of the chest is obtained. FINDINGS: Postsurgical change of the left upper lobectomy. Left midlung probable atelectasis remains . Thoracostomy tube is similar in position situated against the medial mediastinal border. Shifting o f the mediastinum leftward from left hemithorax volume loss. Right lung remains well aerated. The pre viously questioned pneumomediastinum has resolved and may have been artifactual. IMPRESSION: 1. Postoperative change of the left upper lobectomy. Left midlung opacity likely represents atelectas is. 2. The previously questioned pneumomediastinum is no longer visualized and may have been artifactual.
[2019-12-31] MEDS: KETOROLAC 30 MG/ML 1 ML VIAL IVP SCH ×3 (14:32→23:42)
[2019-12-31 14:55] LABS: HCT 31.6 % (34.0-46.0); HGB 10.3 gm/dL (11.4-16.0); MCH 27.2 pg (25.0-35.0); MCHC 32.5 g/dL (31.0-37.0); MCV 83.5 fL (80.0-100.0); Mean Platelet Volume 6.9; Platelet Count 463 k/uL (150-450); RBC 3.79 m/uL (3.80-5.40); RDW 13.9 % (11.5-15.5); WBC 15.3 k/uL (3.8-10.6)
[2019-12-31] MEDS: ACETAMINOPHEN IV (For NPO) 1,000 MG in EMPTY BAG 1 BAG IVPB SCH ×2 (15:05→18:32)
[2019-12-31 15:09] LABS: ALT 8 U/L (4-34); AST 20 U/L (14-36); African American GFR (CKD) >90 (>60 ml/min/1.73 sqM); Albumin 3.2 g/dL (3.5-5.0); Alkaline Phosphatase 96 U/L (38-126); Anion Gap 8 mmol/L; Blood Urea Nitrogen 12 mg/dL (7-17); Calcium 8.6 mg/dL (8.4-10.2); Carbon Dioxide 29 mmol/L (22-30); Chloride 94 mmol/L (98-107); Glucose 235 mg/dL (74-99); Non-African American GFR(CKD) >90 (>60 ml/min/1.73 sqM); Sodium 131 mmol/L (137-145); Total Bilirubin 0.5 mg/dL (0.2-1.3); Total Protein 6.1 g/dL (6.3-8.2)
[2019-12-31] MEDS: IPRATROPIUM-ALBUTEROL 3 ML NEB IH SCH ×3 (15:21→20:05)
[2019-12-31] MEDS: metFORMIN 500 MG TAB PO SCH (16:33)
[2019-12-31] MEDS: traMADol 50 MG TAB PO SCH ×2 (16:33→22:09)
[2019-12-31] MEDS: HEPARIN SODIUM,PORCINE 5,000 UNIT/ML 1 ML VIAL SQ SCH ×2 (16:33→23:42)
--- NOTE | 2019-12-31 16:38 | P.CNPUL ---
History of Present Illness Consult date: 12/31/19 Requesting physician: Teddy Wilkins Reason for consult: other (Status post left upper lobectomy) Chief complaint: Abnormal chest x-ray and CT of the chest. History of present illness: This is a 54-year-old female, 65-fdcn-enma smoking history, continues to smoke, patient was recently discovered to have a left cavitary mass in the apex. This was diagnosed as poorly differentiated non-small cell cancer consistent with adenocarcinoma. Patient underwent PET scan showed marked uptake in the left upper lobe as well as in the left upper hilum, L5 distribution. Patient was presented in the tumor Board, and she was initially felt that she may have stage IIIa carcinoma, patient was recommended to undergo induction chemotherapy followed by lobectomy and preoperative surgical staging was requested. Recently, the patient underwent Giovana mediastinotomy with biopsy of the AP window and mediastinal lymph nodes, and all came back negative.. Hence patient was advised to undergo left upper lobectomy which was done today. Her postoperative course was basically uneventful, I was asked to see her on consultation. Patient is relatively asymptomatic, she has some pain from the surgical site otherwise she denies any cough wheezing shortness of breath. Review of Systems Constitutional: No fever no chills, but she had a 10 pound weight loss over the last few months. HEENT: Negative Pulmonary: As noted in HPI Cardiac: Negative GI: Negative Genitourinary: Negative Musculoskeletal: Negative Skin: Negative Hematologic: Negative Endocrine: Negative Psychiatric: Negative Lymphatics: Negative Past Medical History Past Medical History: Cancer, COPD, Diabetes Mellitus, Fibromyalgia, Hyperlipidemia, Hypertension Additional Past Medical History / Comment(s): HX OF CERVICAL CANCER WITH HYSTERECTOMY, NEW DIAGNOSIS LUNG CANCER.,STATES SOB AT TIMES, COUGHING UP BLOOD. History of Any Multi-Drug Resistant Organisms: None Reported Past Surgical History: Hysterectomy Additional Past Surgical History / Comment(s): 12/02/19 MEDIATINOSCOPY AND LYMPH NODE BX. LASER SURGERY FOR GLAUCOMA. VAGINAL HYSTERECTOMY Past Anesthesia/Blood Transfusion Reactions: Motion Sickness, Postoperative Nausea & Vomiting (PONV) Past Psychological History: Anxiety, Bipolar, Depression Smoking Status: Former smoker Past Alcohol Use History: None Reported Additional Past Alcohol Use History / Comment(s): QUIT SMOKING OCT 2019, SMOKED 1 PPD, SMOKED FOR 40 YEARS. Past Drug Use History: None Reported - Past Family History Mother Family Medical History: Cancer, Diabetes Mellitus Additional Family Medical History / Comment(s): BREAST CANCER Father Family Medical History: Cancer Additional Family Medical History / Comment(s): LUNG CANCER Medications and Allergies Home Medications Medication Instructions Recorded Confirmed Type DULoxetine HCL [Cymbalta] 60 mg PO QAM 06/04/16 12/28/19 History Bisoprolol-Hctz 5-6.25 mg [Ziac 1 tab PO QAM 10/21/19 12/28/19 History 5-6.25 MG] amLODIPine [Norvasc] 10 mg PO QAM 10/21/19 12/28/19 History Acetaminophen Tab [Tylenol] 325 mg PO DIRECTED PRN 11/30/19 12/31/19 History metFORMIN HCL 500 mg PO BID 12/28/19 12/28/19 History Allergies Allergy/AdvReac Type Severity Reaction Status Date / Time mold Allergy Unknown Dyspnea, Verified 12/31/19 06:11 Rash, Swelling Penicillins Allergy Unknown Verified 12/31/19 06:11 Childhood Physical Exam Vitals: Vital Signs Temp Pulse Pulse Pulse Resp BP BP 12/31/19 15:48 62 12/31/19 15:43 71 112/72 12/31/19 15:30 68 12/31/19 14:30 119/73 12/31/19 14:15 97.8 F 77 118/75 12/31/19 13:30 72 16 125/75 12/31/19 13:15 76 16 139/69 12/31/19 13:00 77 16 148/84 12/31/19 12:45 76 18 163/81 12/31/19 12:30 82 16 171/86 12/31/19 12:29 97.8 F 77 20 118/75 12/31/19 12:16 97.4 F L 68 16 189/74 12/31/19 06:24 97.9 F 79 17 162/77 Pulse Ox 12/31/19 15:48 12/31/19 15:43 12/31/19 15:30 99 12/31/19 14:30 12/31/19 14:15 12/31/19 13:30 100 12/31/19 13:15 100 12/31/19 13:00 100 12/31/19 12:45 100 12/31/19 12:30 100 03/19/20 12:29 98 12/31/19 12:16 100 12/31/19 06:24 98 Intake and Output 12/31/19 12/31/19 12/31/19 06:59 14:59 22:59 Intake Total 50 2600 Output Total 440 Balance 50 2160 Intake: IV 50 2600 Output: Urine 140 Estimated Blood Loss 300 Other: Voiding Method Indwelling Catheter Weight 68.719 kg Physical Exam: Revealed 54-year-old female frail looking, in no distress. Head: Atraumatic normocephalic. HEENT:[Neck is supple.] [No neck masses.] [No thyromegaly.] [No JVD.] PERRLA, EOMI, no active. Chest: Symmetrical chest expansion, diminished breath sounds on the left side, chest tube is noted on the left side. No crackles nor rhonchi no wheezes. Cardiac Exam: [Normal S1 and S2, no S3 gallop, no murmur.] Abdomen: [Soft, nontender, no megaly, no rebound, no guarding, normal bowel sounds.] Extremities: [No clubbing, no edema, no cyanosis.] Neurological Exam: [No focal neurologic deficit.] Alert and oriented 3. Psychiatric: Normal mood affect and normal mental status examination. Skin: No rashes. Musculoskeletal: No deformities noted limitation in range of motion. Results - Laboratory Findings CBC and BMP: 12/31/19 14:17 12/31/19 14:17 Abnormal lab findings: Abnormal Labs 12/31/19 12/31/19 12/31/19 06:18 12:53 13:59 WBC RBC Hgb Hct Plt Count Sodium Chloride Creatinine Glucose POC Glucose (mg/dL) 302 H 278 H 261 H Total Protein Albumin 12/31/19 12/31/19 14:17 14:17 WBC 15.3 H RBC 3.79 L Hgb 10.3 L Hct 31.6 L Plt Count 463 H Sodium 131 L Chloride 94 L Creatinine 0.51 L Glucose 235 H POC Glucose (mg/dL) Total Protein 6.1 L Albumin 3.2 L - Diagnostic Findings Chest x-ray: image reviewed (Chest x-ray showed postoperative change of left upper lobectomy and left midlung atelectasis.) Assessment and Plan Assessment: Impression: Status post left upper lobectomy, postoperative day #0. Left upper lobe cavitary mass/lung adenocarcinoma, biopsy-proven. Tobacco dependence syndrome/chronic smoker. History of cervical cancer. Type 2 diabetes Hypertension Hyperlipidemia Recommendation: Continue chest tube to suction Resume bronchodilators Resume home meds Incentive spirometry Pain control Early ambulation We'll continue to follow. Time with Patient: Greater than 30
[2019-12-31 16:43] LABS: Glucose,Whole Blood 207 mg/dL (75-99)
[2019-12-31] MEDS: INSULIN ASPART (NovoLOG) 100 UNIT/ML VIAL SQ SCH ×2 (16:53→20:37)
[2019-12-31 20:35] LABS: Glucose,Whole Blood 183 mg/dL (75-99)
[2020-01-01] MEDS ORDERED: ACETAMINOPHEN TAB 500 MG TAB PO PRN (00:01)
[2020-01-01] MEDS ORDERED: AMIODARONE 300 MG in DEXTROSE 5% IN WATER 250 ML IV SCH ×2 (01:30)
--- NOTE | 2020-01-01 03:39 | XR ---
EXAMINATION TYPE: XR chest 1V DATE OF EXAM: 01/01/2020 COMPARISON: 12/31/2019 HISTORY: Postop left lobectomy TECHNIQUE: FINDINGS: Heart and mediastinum are shifted slightly to the left side. There is a left-sided chest tu be with the tip at the level of the aortic arch adjacent to the spine. There is no pneumothorax. Ther e are some surgical clips over the left upper lobe. Right lung is fairly clear. There is no heart [place]. There is blunting left costophrenic angle. IMPRESSION: Small left pleural effusion. Left hemithorax with mild volume loss. No pneumothorax. No s ignificant change compared to yesterday.
[2020-01-01] MEDS: KETOROLAC 30 MG/ML 1 ML VIAL IVP SCH ×4 (05:55→23:41)
[2020-01-01 06:15] LABS: Glucose,Whole Blood 210 mg/dL (75-99)
[2020-01-01] MEDS: INSULIN ASPART (NovoLOG) 100 UNIT/ML VIAL SQ SCH ×4 (06:32→21:38)
[2020-01-01] MEDS: metFORMIN 500 MG TAB PO SCH ×2 (06:32→19:40)
[2020-01-01 06:46] LABS: Basophils % (A) 0 %; Eosinophils % (A) 0 %; HCT 29.4 % (34.0-46.0); HGB 9.2 gm/dL (11.4-16.0); Lymphocytes # (A) 0.9 k/uL (1.0-4.8); Lymphocytes % (A) 6 %; MCH 26.3 pg (25.0-35.0); MCHC 31.4 g/dL (31.0-37.0); MCV 83.6 fL (80.0-100.0); Mean Platelet Volume 7.2; Monocytes # (A) 0.4 k/uL (0-1.0); Monocytes % (A) 3 %; Neutrophils # (A) 12.2 k/uL (1.3-7.7); Neutrophils % (A) 88 %; Platelet Count 462 k/uL (150-450); RBC 3.52 m/uL (3.80-5.40); RDW 13.7 % (11.5-15.5); WBC 13.9 k/uL (3.8-10.6)
[2020-01-01 06:56] LABS: African American GFR (CKD) >90 (>60 ml/min/1.73 sqM); Anion Gap 7 mmol/L; Blood Urea Nitrogen 13 mg/dL (7-17); Carbon Dioxide 28 mmol/L (22-30); Chloride 95 mmol/L (98-107); Glucose 191 mg/dL (74-99); Non-African American GFR(CKD) >90 (>60 ml/min/1.73 sqM); Sodium 130 mmol/L (137-145)
[2020-01-01] MEDS: IPRATROPIUM-ALBUTEROL 3 ML NEB IH SCH ×4 (07:12→19:37)
[2020-01-01] MEDS ORDERED: GLYCOPYRROLATE 0.2 MG/ML 2 ML VIAL ONE (07:25)
[2020-01-01] MEDS ORDERED: MIDAZOLAM 2 MG/2 ML VIAL ONE (07:25)
[2020-01-01] MEDS ORDERED: HYDROmorphone (PF) 1 MG/ML ONE (07:25)
[2020-01-01] MEDS ORDERED: PROPOFOL 10 MG/ML 20 ML VIAL IV ONE (07:25)
[2020-01-01] MEDS ORDERED: SUCCINYLCHOLINE CHLORIDE 100 MG/5 ML SYR IV ONE (07:25)
[2020-01-01] MEDS ORDERED: ROCURONIUM BROMIDE 10 MG/ML 5 ML VIAL IV ONE (07:25)
[2020-01-01] MEDS ORDERED: NEOSTIGMINE 1 MG/ML 10 ML VIAL ONE (07:25)
[2020-01-01] MEDS ORDERED: fentaNYL (PF) 50 MCG/ML 2 ML AMP ONE (07:25)
[2020-01-01] MEDS ORDERED: LIDOCAINE 1% INJ 10MG/ML (20 ML MDV) ONE (07:25)
[2020-01-01] MEDS ORDERED: PHENYLEPHRINE-0.9% NACL SYG 1 MG/10 ML SYRINGE ONE (07:25)
[2020-01-01] MEDS: traMADol 50 MG TAB PO SCH ×4 (08:30→22:09)
[2020-01-01] MEDS: amLODIPine 10 MG TAB PO SCH (08:31)
[2020-01-01] MEDS: DULoxetine HCL 60 MG CAPSULE.DR PO SCH (08:31)
[2020-01-01] MEDS: BISOPROLOL-HCTZ 5-6.25 MG 1 EACH TAB PO SCH (08:31)
[2020-01-01] MEDS: HEPARIN SODIUM,PORCINE 5,000 UNIT/ML 1 ML VIAL SQ SCH ×3 (08:31→23:41)
--- NOTE | 2020-01-01 10:58 | P.PN ---
Subjective Progress Note Date: 01/01/20 This is a 54-year-old female, [id number] smoking history, continues to smoke, patient was recently discovered to have a left cavitary mass in the apex. This was diagnosed as poorly differentiated non-small cell cancer consistent with adenocarcinoma. Patient underwent PET scan showed marked uptake in the left upper lobe as well as in the left upper hilum, L5 distribution. Patient was presented in the tumor Board, and she was initially felt that she may have stage IIIa carcinoma, patient was recommended to undergo induction chemotherapy followed by lobectomy and preoperative surgical staging was requested. Recently, the patient underwent thoracoscopic mediastinotomy with biopsy of the AP window and mediastinal lymph nodes, and all came back negative.. Hence patient was advised to undergo left upper lobectomy which was done today. Her postoperative course was basically uneventful, I was asked to see her on consultation. Patient is relatively asymptomatic, she has some pain from the surgical site otherwise she denies any cough wheezing shortness of breath. On 01/01/2020 patient seen in follow-up on selective care unit. This is postoperative day 1 status post robotic-assisted thorascopic left upper lobectomy with mediastinal lymph node dissection and bronchoscopy for mucous plugging at the conclusion of the case. Pathology of the left upper lobe for permanent section and frozen section of bronchial margin, lymph node stations of L8, L9, LDL 10, LV 11 and level VII is still pending at this time, patient is awake and alert, room air pulse ox is 96%, she is afebrile, hemodynamically patient stable, she is working on her incentive spirometer, she is having soreness and discomfort at the incision site, she is achieving 500 mL on the incentive spirometer, today's chest x-ray has been reviewed showing small left pleural effusion and left hemithorax with mild volume loss, no pneumothorax. Left-sided chest tube has been placed to waterseal, and there has been 362 mL of thin serosanguineous output in the last 24 hours from the left-sided chest tube. Today's labs have been reviewed, white blood cell count is 13.9, hemoglobin is 9.2, sodium is 1:30, potassium is 4.0, chloride is 95, CO2 is 28, BUN 13 creatinine 0.5 Objective - Vital Signs Vital signs: Vital Signs Temp 97.9 F 01/01/20 08:00 Pulse 97 01/01/20 08:00 Resp 19 01/01/20 08:00 BP 110/80 01/01/20 08:00 Pulse Ox 96 01/01/20 08:00 Intake & Output 12/31/19 01/01/20 01/01/20 18:59 06:59 18:59 Intake Total 3050 710 240 Output Total 820 394 0 Balance 2230 316 240 Weight 68.719 kg 68.2 kg Intake: IV 2600 Intake, IV Titration 330 410 Amount ACETAMINOPHEN IV (For NPO 200 ) 1,000 mg In Empty Bag 1 bag @ 400 mls/hr IVPB Q6HR [facility] Rx#:[id number] Sodium Chloride 0.9% 1, 80 360 000 ml @ 40 mls/hr IV . Q24H [facility] Rx#:[id number] ceFAZolin 2 gm In Sodium 50 50 Chloride 0.9% 50 ml @ 100 mls/hr IVPB Q8HR [facility] Rx# :[id number] Oral 120 300 240 Output: Chest Tube Drainage 194 0 Chest Tube Left 194 0 Drainage 170 Left Anterior 170 Urine 350 200 Estimated Blood Loss 300 Other: Voiding Method Indwelling Catheter Indwelling Catheter Indwelling Catheter - Exam GENERAL EXAM: Alert, very pleasant, thin white female, with the room air pulse ox of 95% and mild to moderate amount of incisional discomfort from the left chest thoracoscopic incisions, and left chest tube, comfortable in no apparent distress. HEAD: Normocephalic/atraumatic. EYES: Normal reaction of pupils, equal size. Conjunctiva pink, sclera white. NOSE: Clear with pink turbinates. THROAT: No erythema or exudates. NECK: No masses, no JVD, no thyroid enlargement, no adenopathy. CHEST: No chest wall deformity. Symmetrical expansion. left lateral and left posterior thoracoscopic incisions covered with dressings, clean dry and intact, left anterior chest chest tube in place to waterseal, with approximately 362 mL of thin serosanguineous output in the Pleur-evac, without evidence of air leak LUNGS: Equal air entry with no crackles, wheeze, rhonchi or dullness.breath sounds at bilateral bases CVS: Regular rate and rhythm, normal S1 and S2, no gallops, no murmurs, no rubs ABDOMEN: Soft, nontender. No hepatosplenomegaly, normal bowel sounds, no gu arding or rigidity. EXTREMITIES: No clubbing, no edema, no cyanosis, 2+ pulses and upper and lower e xtremities. MUSCULOSKELETAL: Muscle strength and tone normal. SPINE: No scoliosis or deformity SKIN: No rashes CENTRAL NERVOUS SYSTEM: Alert and oriented -3. No focal deficits, tone is normal in all 4 extremities. PSYCHIATRIC: Alert and oriented -3. Appropriate affect. Intact judgment and insight. - Labs CBC & Chem 7: 01/01/20 06:12 01/01/20 06:12 Labs: Abnormal Lab Results - Last 24 Hours (Table) 12/31/19 12/31/19 12/31/19 Range/Units 12:53 13:59 14:17 WBC 15.3 H (3.8-10.6) k/uL RBC 3.79 L (3.80-5.40) m/uL Hgb 10.3 L (11.4-16.0) gm/dL Hct 31.6 L (34.0-46.0) % Plt Count 463 H (150-450) k/uL Neutrophils # (1.3-7.7) k/uL Lymphocytes # (1.0-4.8) k/uL Sodium (137-145) mmol/L Chloride (98-107) mmol/L Creatinine (0.52-1.04) mg/dL Glucose (74-99) mg/dL POC Glucose (mg/dL) 278 H 261 H (75-99) mg/dL Calcium (8.4-10.2) mg/dL Total Protein (6.3-8.2) g/dL Albumin (3.5-5.0) g/dL 12/31/19 12/31/19 12/31/19 Range/Units 14:17 16:41 20:32 WBC (3.8-10.6) k/uL RBC (3.80-5.40) m/uL Hgb (11.4-16.0) gm/dL Hct (34.0-46.0) % Plt Count (150-450) k/uL Neutrophils # (1.3-7.7) k/uL Lymphocytes # (1.0-4.8) k/uL Sodium 131 L (137-145) mmol/L Chloride 94 L (98-107) mmol/L Creatinine 0.51 L (0.52-1.04) mg/dL Glucose 235 H (74-99) mg/dL POC Glucose (mg/dL) 207 H 183 H (75-99) mg/dL Calcium (8.4-10.2) mg/dL Total Protein 6.1 L (6.3-8.2) g/dL Albumin 3.2 L (3.5-5.0) g/dL 01/01/20 01/01/20 01/01/20 Range/Units 06:12 06:12 06:14 WBC 13.9 H (3.8-10.6) k/uL RBC 3.52 L (3.80-5.40) m/uL Hgb 9.2 L (11.4-16.0) gm/dL Hct 29.4 L (34.0-46.0) % Plt Count 462 H (150-450) k/uL Neutrophils # 12.2 H (1.3-7.7) k/uL Lymphocytes # 0.9 L (1.0-4.8) k/uL Sodium 130 L (137-145) mmol/L Chloride 95 L (98-107) mmol/L Creatinine 0.50 L (0.52-1.04) mg/dL Glucose 191 H (74-99) mg/dL POC Glucose (mg/dL) 210 H (75-99) mg/dL Calcium 8.0 L (8.4-10.2) mg/dL Total Protein (6.3-8.2) g/dL Albumin (3.5-5.0) g/dL Microbiology - Last 24 Hours (Table) 12/31/19 11:27 Gram Stain - Preliminary Lung - Left Upper Lobe Tissue Culture - Preliminary 12/31/19 11:27 Anaerobic Culture - Preliminary Lung - Left Upper Lobe Assessment and Plan Plan: assessment: #1.Status post left upper lobectomy, postoperative day #1. #2. Left upper lobe cavitary mass/lung adenocarcinoma, biopsy-proven. #3.Tobacco dependence syndrome/chronic smoker. #4.History of cervical cancer. #5.Type 2 diabetes #6. Hypertension #7. Hyperlipidemia Plan: Continue current medical treatment, encourage deep breathing and coughing, today's chest x-ray has been reviewed with no evidence of pneumothorax, left chest tube is in place to waterseal, without evidence of air leak, vital signs are stable, patient is on room air, maintaining stable O2 saturations, increase activity as tolerated, we'll continue to follow along with CT surgery. I performed a history & physical examination of the patient and discussed their management with my nurse practitioner, Bria Cid. I reviewed the nurse practitioner's note and agree with the documented findings and plan of care. Lung sounds are positive for diminished breath sounds. The findings and the impression was discussed with the patient. I attest to the documentation by the nurse practitioner. Time with Patient: Less than 30
[2020-01-01 11:46] LABS: Glucose,Whole Blood 171 mg/dL (75-99)
--- NOTE | 2020-01-01 13:36 | P.CONS ---
History of Present Illness - Reason for Consult Consult date: 01/01/20 Medical management diabetes mellitus, hypertension, anxiety Requesting physician: Teddy Wilkins - Chief Complaint Status post left upper lobectomy - History of Present Illness This is a 54-year-old female, nicotine dependent, 40 year smoking history, quit in October 2019, with recently diagnosed -poorly differentiated non-small cell CA consistent with adenocarcinoma of the left lung, possible stage IIIA, status post l mediastinotomy with biopsy; mediastinal lymph nodes,-biopsies returned negative, status post left upper lobectomy, postop day #1. Pathology pending. Pain controlled, complains of surgical soreness, tenderness at the chest tube insertion site. Chest x-ray reporting small left pleural effusion, left hemothorax with mild volume loss, no pneumothorax, no significant change. IS up to 500. Afebrile. Vital signs stable, no tachycardia. Maintaining O2 sats in the 90s on room air. Review of Systems ROS Statement: Those systems with pertinent positive or pertinent negative responses have been documented in the HPI. ROS Other: All systems not noted in ROS Statement are negative. Past Medical History Past Medical History: Cancer, COPD, Diabetes Mellitus, Fibromyalgia, Hyperlipidemia, Hypertension Additional Past Medical History / Comment(s): HX OF CERVICAL CANCER WITH HYSTERECTOMY, NEW DIAGNOSIS LUNG CANCER.,STATES SOB AT TIMES, COUGHING UP BLOOD. History of Any Multi-Drug Resistant Organisms: None Reported Past Surgical History: Hysterectomy Additional Past Surgical History / Comment(s): 12/02/19 MEDIATINOSCOPY AND LYMPH NODE BX. LASER SURGERY FOR GLAUCOMA. VAGINAL HYSTERECTOMY Past Anesthesia/Blood Transfusion Reactions: Motion Sickness, Postoperative Nausea & Vomiting (PONV) Past Psychological History: Anxiety, Bipolar, Depression Smoking Status: Former smoker Past Alcohol Use History: None Reported Additional Past Alcohol Use History / Comment(s): QUIT SMOKING OCT 2019, SMOKED 1 PPD, SMOKED FOR 40 YEARS. Past Drug Use History: None Reported - Past Family History Mother Family Medical History: Cancer, Diabetes Mellitus Additional Family Medical History / Comment(s): BREAST CANCER Father Family Medical History: Cancer Additional Family Medical History / Comment(s): LUNG CANCER Medications and Allergies Home Medications Medication Instructions Recorded Confirmed Type DULoxetine HCL [Cymbalta] 60 mg PO QAM 06/04/16 12/28/19 History Bisoprolol-Hctz 5-6.25 mg [Ziac 1 tab PO QAM 10/21/19 12/28/19 History 5-6.25 MG] amLODIPine [Norvasc] 10 mg PO QAM 10/21/19 12/28/19 History Acetaminophen Tab [Tylenol] 325 mg PO DIRECTED PRN 11/30/19 12/31/19 History metFORMIN HCL 500 mg PO BID 12/28/19 12/28/19 History Allergies Allergy/AdvReac Type Severity Reaction Status Date / Time mold Allergy Unknown Dyspnea, Verified 12/31/19 06:11 Rash, Swelling Penicillins Allergy Unknown Verified 12/31/19 06:11 Childhood Physical Exam Vitals: Vital Signs Temp Pulse Pulse Resp BP Pulse Ox 01/01/20 07:21 70 01/01/20 07:12 68 01/01/20 03:06 84 18 01/01/20 03:05 97.5 F L 84 18 109/78 96 12/31/19 23:49 98.0 F 72 16 97/62 100 12/31/19 20:20 64 12/31/19 20:05 64 12/31/19 20:00 98.1 F 68 18 96/60 99 12/31/19 15:48 62 12/31/19 15:43 71 112/72 12/31/19 15:30 68 99 12/31/19 14:30 119/73 12/31/19 14:15 97.8 F 77 118/75 12/31/19 13:30 72 16 125/75 100 12/31/19 13:15 76 16 139/69 100 12/31/19 13:00 77 16 148/84 100 12/31/19 12:45 76 18 163/81 100 12/31/19 12:30 82 16 171/86 100 12/31/19 12:29 97.8 F 77 20 118/75 98 12/31/19 12:16 97.4 F L 68 16 189/74 100 Intake and Output 12/31/19 01/01/20 01/01/20 22:59 06:59 14:59 Intake Total 640 520 Output Total 572 202 Balance 68 318 Intake: Intake, IV Titration 370 370 Amount ACETAMINOPHEN IV (For NPO 200 ) 1,000 mg In Empty Bag 1 bag @ 400 mls/hr IVPB Q6HR [facility] Rx#:[id number] Sodium Chloride 0.9% 1, 120 320 000 ml @ 40 mls/hr IV . Q24H [facility] Rx#:[id number] ceFAZolin 2 gm In Sodium 50 50 Chloride 0.9% 50 ml @ 100 mls/hr IVPB Q8HR [facility] Rx# :[id number] Oral 270 150 Output: Chest Tube Drainage 192 2 Chest Tube Left 192 2 Drainage 170 Left Anterior 170 Urine 210 200 Other: Voiding Method Indwelling Catheter Indwelling Catheter Weight 68.2 kg PHYSICAL EXAM: VITAL SIGNS: [As above] GENERAL: Sitting up in chair, no acute distress HEENT: Conjunctivae normal. eyes normal. Oral mucosa moist NECK: No JVD. No thyroid enlargement. No LNs CARDIOVASCULAR: S1, S2 regular. No murmur RESPIRATION: Breath sounds diminished in the bases, more so on the left. Left lateral/posterior clean, dry and intact with pleural chest tube to waterseal with serosanguineous drainage. ABDOMEN: Soft, nontender . No guarding. no masses palpable. No ascites, No hepatosplenomegaly.Bowel sounds heard. LEGS: No edema. no swelling. No clubbing, no cyanosis PSYCHIATRY: Alert and oriented X3, mood and affect normal. NERVOUS SYSTEM: Cranial N 2-12 grossly normal. Moves all 4 limbs. Diffuse weakness No focal deficits. Strength and sensation grossly intact.. Skin: no rash Lymphatic system. No LN neck axilla Results CBC & Chem 7: 01/01/20 06:12 01/01/20 06:12 Labs: Abnormal Lab Results - Last 24 Hours (Table) 12/31/19 12/31/19 12/31/19 Range/Units 12:53 13:59 14:17 WBC 15.3 H (3.8-10.6) k/uL RBC 3.79 L (3.80-5.40) m/uL Hgb 10.3 L (11.4-16.0) gm/dL Hct 31.6 L (34.0-46.0) % Plt Count 463 H (150-450) k/uL Neutrophils # (1.3-7.7) k/uL Lymphocytes # (1.0-4.8) k/uL Sodium (137-145) mmol/L Chloride (98-107) mmol/L Creatinine (0.52-1.04) mg/dL Glucose (74-99) mg/dL POC Glucose (mg/dL) 278 H 261 H (75-99) mg/dL Calcium (8.4-10.2) mg/dL Total Protein (6.3-8.2) g/dL Albumin (3.5-5.0) g/dL 12/31/19 12/31/19 12/31/19 Range/Units 14:17 16:41 20:32 WBC (3.8-10.6) k/uL RBC (3.80-5.40) m/uL Hgb (11.4-16.0) gm/dL Hct (34.0-46.0) % Plt Count (150-450) k/uL Neutrophils # (1.3-7.7) k/uL Lymphocytes # (1.0-4.8) k/uL Sodium 131 L (137-145) mmol/L Chloride 94 L (98-107) mmol/L Creatinine 0.51 L (0.52-1.04) mg/dL Glucose 235 H (74-99) mg/dL POC Glucose (mg/dL) 207 H 183 H (75-99) mg/dL Calcium (8.4-10.2) mg/dL Total Protein 6.1 L (6.3-8.2) g/dL Albumin 3.2 L (3.5-5.0) g/dL 01/01/20 01/01/20 01/01/20 Range/Units 06:12 06:12 06:14 WBC 13.9 H (3.8-10.6) k/uL RBC 3.52 L (3.80-5.40) m/uL Hgb 9.2 L (11.4-16.0) gm/dL Hct 29.4 L (34.0-46.0) % Plt Count 462 H (150-450) k/uL Neutrophils # 12.2 H (1.3-7.7) k/uL Lymphocytes # 0.9 L (1.0-4.8) k/uL Sodium 130 L (137-145) mmol/L Chloride 95 L (98-107) mmol/L Creatinine 0.50 L (0.52-1.04) mg/dL Glucose 191 H (74-99) mg/dL POC Glucose (mg/dL) 210 H (75-99) mg/dL Calcium 8.0 L (8.4-10.2) mg/dL Total Protein (6.3-8.2) g/dL Albumin (3.5-5.0) g/dL Microbiology - Last 24 Hours (Table) 12/31/19 11:27 Gram Stain - Preliminary Lung - Left Upper Lobe Tissue Culture - Preliminary 12/31/19 11:27 Anaerobic Culture - Preliminary Lung - Left Upper Lobe Assessment and Plan Assessment: Status post left upper lobectomy related to recently diagnosed left upper lobe lung adenocarcinoma History of Nicotine dependence, 40 year smoking history, quit in October 2019 Diabetes mellitus II Hypertension Hyperlipidemia Bipolar anxiety depression History of cervical cancer with hysterectomy Fibromyalgia Plan: Continue on current medication regime, monitoring and symptomatic treatment. Aggressive pulmonary toileting with incentive spirometer reinforced. Increase activity as tolerated. Home meds have been reviewed and resumed accordingly. GI prophylaxis added to med regime. Thank you Dr. Wilkins for the consult. The impression and plan of care has been dictated as directed. : I performed a history and examination of this patient, discussed the same with the dictator. I agree with the dictator's note ,documented as a scribe. Any additional findings or plans will be noted.
--- NOTE | 2020-01-01 13:39 | P.PN ---
Subjective Progress Note Date: 01/01/20 Principal diagnosis: Lung cancer left upper lobe. Past medical history significant for chronic obstructive pulmonary disease, type 2 diabetes mellitus, fibromyalgia, hyperlipidemia, hypertension, anxiety, depression, bipolar and cervical cancer with hysterectomy and a right POD #1 left robotic assisted thoracoscopic upper lobectomy with mediastinal lymph node dissection and bronchoscopy for mucus plugging at the conclusion of the case. Acute blood loss anemia, an expected outcome of the surgery. Patient is sitting up to the bedside chair on the cardiac stepdown unit. She is in no acute distress. Oxygen saturation are 96% on room air. She is achieving 500 mL on her incentive spirometry with much encouragement. Left pleural chest tube remains in place to water seal. No air leak is present. Draining thin serosanguineous drainage with 380 mL output since surgery. She is complaining of some surgical type pain to her chest tube insertion site and denies any com plaints of shortness of breath. She remains afebrile and is hemodynamically stable. Objective - Vital Signs Vital signs: Vital Signs Temp 97.9 F 01/01/20 08:00 Pulse 70 01/01/20 11:10 Resp 19 01/01/20 08:00 BP 110/80 01/01/20 08:00 Pulse Ox 96 01/01/20 08:00 Intake & Output 12/31/19 01/01/20 01/01/20 18:59 06:59 18:59 Intake Total 3050 710 240 Output Total 820 394 0 Balance 2230 316 240 Weight 68.719 kg 68.2 kg Intake: IV 2600 Intake, IV Titration 330 410 Amount ACETAMINOPHEN IV (For NPO 200 ) 1,000 mg In Empty Bag 1 bag @ 400 mls/hr IVPB Q6HR [facility] Rx#:[id number] Sodium Chloride 0.9% 1, 80 360 000 ml @ 40 mls/hr IV . Q24H [facility] Rx#:[id number] ceFAZolin 2 gm In Sodium 50 50 Chloride 0.9% 50 ml @ 100 mls/hr IVPB Q8HR [facility] Rx# :[id number] Oral 120 300 240 Output: Chest Tube Drainage 194 0 Chest Tube Left 194 0 Drainage 170 Left Anterior 170 Urine 350 200 Estimated Blood Loss 300 Other: Voiding Method Indwelling Catheter Indwelling Catheter Indwelling Catheter - Constitutional General appearance: Present: average body habitus, cooperative, no acute distress - Respiratory Details: Lungs sounds essentially clear throughout, diminished bilateral bases left greater than right. Respirations are symmetrical and nonlabored. Oxygen satura tion are 96% on room air. Achieving 500 mL on her incentive spirometry. Left pleural chest tube remains in place to water seal. No air leak is present. Draining thin serosanguineous drainage with 380 mL output since surgery. - Cardiovascular Details: Regular rhythm and rate. S1 and S2 present, negative for S3, gallop or murmur. No edema present. Knee-high sequential compression devices in place her bilateral lower extremities. - Gastrointestinal Gastrointestinal Comment(s): Abdomen is soft, nontender and nondistended. Hypoactive bowel sounds present in all 4 abdominal quadrants. No guarding or rigidity. No organomegaly appreciated. Tolerating oral intake. - Genitourinary Genitourinary Comment(s): Nolasco catheter for accurate I&O. Draining clear narendra urine. - Integumentary Integumentary Comment(s): Skin is warm and dry. No clubbing or cyanosis is present. Left chest thoracoscopic incision sites clean, dry. Dressings clean, dry and intact. - Neurologic Neurologic: Present: CNII-XII intact - Musculoskeletal Musculoskeletal: Present: gait normal, generalized weakness, strength equal bilaterally - Psychiatric Psychiatric: Present: A&O x's 3, appropriate affect, intact judgment & insight - Allied health notes Allied health notes reviewed: nursing - Labs CBC & Chem 7: 01/01/20 06:12 01/01/20 06:12 Labs: Abnormal Lab Results - Last 24 Hours (Table) 12/31/19 12/31/19 12/31/19 Range/Units 13:59 14:17 14:17 WBC 15.3 H (3.8-10.6) k/uL RBC 3.79 L (3.80-5.40) m/uL Hgb 10.3 L (11.4-16.0) gm/dL Hct 31.6 L (34.0-46.0) % Plt Count 463 H (150-450) k/uL Neutrophils # (1.3-7.7) k/uL Lymphocytes # (1.0-4.8) k/uL Sodium 131 L (137-145) mmol/L Chloride 94 L (98-107) mmol/L Creatinine 0.51 L (0.52-1.04) mg/dL Glucose 235 H (74-99) mg/dL POC Glucose (mg/dL) 261 H (75-99) mg/dL Calcium (8.4-10.2) mg/dL Total Protein 6.1 L (6.3-8.2) g/dL Albumin 3.2 L (3.5-5.0) g/dL 12/31/19 12/31/19 01/01/20 Range/Units 16:41 20:32 06:12 WBC 13.9 H (3.8-10.6) k/uL RBC 3.52 L (3.80-5.40) m/uL Hgb 9.2 L (11.4-16.0) gm/dL Hct 29.4 L (34.0-46.0) % Plt Count 462 H (150-450) k/uL Neutrophils # 12.2 H (1.3-7.7) k/uL Lymphocytes # 0.9 L (1.0-4.8) k/uL Sodium (137-145) mmol/L Chloride (98-107) mmol/L Creatinine (0.52-1.04) mg/dL Glucose (74-99) mg/dL POC Glucose (mg/dL) 207 H 183 H (75-99) mg/dL Calcium (8.4-10.2) mg/dL Total Protein (6.3-8.2) g/dL Albumin (3.5-5.0) g/dL 01/01/20 01/01/20 01/01/20 Range/Units 06:12 06:14 11:45 WBC (3.8-10.6) k/uL RBC (3.80-5.40) m/uL Hgb (11.4-16.0) gm/dL Hct (34.0-46.0) % Plt Count (150-450) k/uL Neutrophils # (1.3-7.7) k/uL Lymphocytes # (1.0-4.8) k/uL Sodium 130 L (137-145) mmol/L Chloride 95 L (98-107) mmol/L Creatinine 0.50 L (0.52-1.04) mg/dL Glucose 191 H (74-99) mg/dL POC Glucose (mg/dL) 210 H 171 H (75-99) mg/dL Calcium 8.0 L (8.4-10.2) mg/dL Total Protein (6.3-8.2) g/dL Albumin (3.5-5.0) g/dL Microbiology - Last 24 Hours (Table) 12/31/19 11:27 Gram Stain - Preliminary Lung - Left Upper Lobe Tissue Culture - Preliminary 12/31/19 11:27 Anaerobic Culture - Preliminary Lung - Left Upper Lobe - Imaging and Cardiology Chest x-ray: report reviewed, image reviewed Assessment and Plan Assessment: 1. Lung cancer left upper lobe, status post left robotic-assisted thoracoscopic upper lobectomy with mediastinal lymph node dissection and bronchoscopy 2. Hypertension 3. Hyperlipidemia 4. Chronic tobacco abuse 5. History of cervical cancer, status post hysterectomy 6. Type 2 diabetes mellitus 7. Anxiety 8. Bipolar disorder Plan: 1. Keep left pleural chest tube in place to water seal. Continue to record accurate I&O. 2. Encourage use of her incentive spirometry every hour while awake and use it 10 times an hour. 3. Bronchodilators and pulmonary management recommendations per Dr. Arredondo. 4. Encourage ambulation, activity as tolerated. Physical/occupational therapy consulted. 5. Discontinue Nolasco catheter. 6. Surgical pathology results remain pending, we will follow the results. 7. Continue to monitor daily labs and chest x-rays. 8. GI and DVT prophylaxis. 9. Pain control per current when necessary orders. Increase Ultram to 50 mg by mouth 4 times a day 10. More recommendations to follow based on patient's clinical course. Time with Patient: Greater than 30
[2020-01-01 16:49] LABS: Glucose,Whole Blood 145 mg/dL (75-99)
[2020-01-01] MEDS ORDERED: DEXTROSE 5% IN WATER 250 ML with AMIODARONE 300 MG IV ONE (19:08)
[2020-01-01] MEDS ORDERED: POTASSIUM CHLORIDE ER 10 MEQ TAB.ER.PRT PO STA (19:09)
[2020-01-01] MEDS: PANTOPRAZOLE 40 MG/10 ML VIAL IVP SCH (19:30)
[2020-01-01] MEDS ORDERED: FUROSEMIDE 10 MG/ML 2 ML VIAL IV ONE (19:30)
[2020-01-01] MEDS ORDERED: DEXTROSE 5% IN WATER 100 ML with AMIODARONE 150 MG IV ONE (19:30)
[2020-01-01] MEDS ORDERED: AMIODARONE 360 MG in DEXTROSE 5% IN WATER 200 ML IV ONE ×2 (19:40)
[2020-01-01 20:39] LABS: Glucose,Whole Blood 267 mg/dL (75-99)
[2020-01-02] MEDS: AMIODARONE 300 MG in DEXTROSE 5% IN WATER 250 ML IV SCH ×4 (01:02→20:10)
[2020-01-02] MEDS: KETOROLAC 30 MG/ML 1 ML VIAL IVP SCH ×4 (05:18→22:32)
[2020-01-02 06:25] LABS: Glucose,Whole Blood 202 mg/dL (75-99)
[2020-01-02 06:27] LABS: HCT 29.5 % (34.0-46.0); HGB 9.3 gm/dL (11.4-16.0); MCH 26.7 pg (25.0-35.0); MCHC 31.5 g/dL (31.0-37.0); MCV 84.9 fL (80.0-100.0); Mean Platelet Volume 7.4; Platelet Count 435 k/uL (150-450); RBC 3.48 m/uL (3.80-5.40); WBC 21.7 k/uL (3.8-10.6)
[2020-01-02] MEDS: INSULIN ASPART (NovoLOG) 100 UNIT/ML VIAL SQ SCH ×4 (06:28→21:24)
[2020-01-02] MEDS: metFORMIN 500 MG TAB PO SCH ×2 (06:31→17:22)
[2020-01-02 06:43] LABS: African American GFR (CKD) >90 (>60 ml/min/1.73 sqM); Anion Gap 12 mmol/L; Blood Urea Nitrogen 19 mg/dL (7-17); Calcium 8.7 mg/dL (8.4-10.2); Carbon Dioxide 23 mmol/L (22-30); Chloride 93 mmol/L (98-107); Glucose 157 mg/dL (74-99); Non-African American GFR(CKD) >90 (>60 ml/min/1.73 sqM); Potassium 3.9 mmol/L (3.5-5.1); Sodium 128 mmol/L (137-145)
--- NOTE | 2020-01-02 06:44 | XR ---
EXAMINATION TYPE: XR chest 2V DATE OF EXAM: 01/02/2020 HISTORY: Postoperative left upper lobectomy. REFERENCE: Previous study dated 01/01/2020. FINDINGS: There is free air under the right hemidiaphragm. A left pleural drain is in place. I do not see evidence of pneumothorax. There is an air-fluid level present in the left hemithorax. Th ere is a new finding. There is a left-sided effusion. IMPRESSION: 1. FREE INTRAPERITONEAL AIR. 2. AIR-FLUID LEVEL, LEFT HEMITHORAX. 3. POSTLOBECTOMY CHANGES. THIS REPORT WAS PHONED TO THE FLOOR AT THE TIME OF REPORTING.
[2020-01-02] MEDS ORDERED: METOCLOPRAMIDE 5 MG/ML 2 ML VIAL IVP STA (07:19)
[2020-01-02] MEDS ORDERED: POTASSIUM CHLORIDE ER 10 MEQ TAB.ER.PRT PO STA (07:25)
[2020-01-02] MEDS: IPRATROPIUM-ALBUTEROL 3 ML NEB IH SCH ×5 (07:42→19:22)
[2020-01-02] MEDS ORDERED: DEXTROSE 5% IN WATER 100 ML with AMIODARONE 150 MG IV ONE (07:54)
[2020-01-02] MEDS: HEPARIN SODIUM,PORCINE 5,000 UNIT/ML 1 ML VIAL SQ SCH ×3 (08:28→22:32)
[2020-01-02] MEDS: amLODIPine 10 MG TAB PO SCH (08:28)
[2020-01-02] MEDS: DULoxetine HCL 60 MG CAPSULE.DR PO SCH (08:28)
[2020-01-02] MEDS: PANTOPRAZOLE 40 MG/10 ML VIAL IVP SCH (08:29)
[2020-01-02] MEDS: traMADol 50 MG TAB PO SCH ×4 (08:29→21:24)
[2020-01-02] MEDS: BISOPROLOL-HCTZ 5-6.25 MG 1 EACH TAB PO SCH (08:32)
--- NOTE | 2020-01-02 09:08 | P.CRDCN ---
History of Present Illness Consult date: 01/02/20 Requesting physician: Teddy Wilkins Consult reason: atrial fibrillation Chief complaint: Lung mass History of present illness: This is a pleasant 54-year-old female with history of nicotine dependence, COPD, diabetes, hypertension, hyperlipidemia, anxiety and depression with bipolar, history of cervical cancer with prior hysterectomy, fibromyalgia, patient was found to have a lung mass, underwent left robotic-assisted thorascopic upper lobectomy with mediastinal lymph node dissection and bronchoscopy. The patient was noted to go into atrial fibrillation and for this reason a cardiology consultation was requested. Patient states last night she felt her heart racing extremely fast and she was quite short of breath. According to the patient, in the past she has noticed brief episodes of similar palpitations and heart racing but has never been told to have atrial fibrillati on. Her EKG showed atrial fibrillation with a rapid ventricular response. Patient was given 150 mg of IV amiodarone, and a second IV bolus of IV amiodarone 150. She is currently on IV amiodarone drip. She continues to have a chest tube in place, her chest x-ray from this morning shows some free intraperitoneal air, no evidence of a pneumothorax. Left hemithorax and post- lobectomy changes. Blood pressure this morning 92/60 with a heart rate in the 1 teens to 120 range, 96% on room air. White blood cell count this morning 21.7, hemoglobin 9.3, platelet count 435. Sodium 128, potassium 3.9, BUN 19, creatinine 0.6, magnesium 1.7. Patient is currently on amiodarone drip, Norvasc 10 mg daily, Ziac, Cymbalta, one dose of IV Lasix was given, patient is on subcutaneous heparin 5000 units every 8 hourly at this time. She sitting up in the chair at bedside, states that she feels significantly better than she did last night. Her breathing is overall stable and she denies palpitations this morning. I did have a lengthy discussion this morning with the patient regarding the importance of anticoagulation for stroke prevention. Past Medical History Past Medical History: Cancer, COPD, Diabetes Mellitus, Fibromyalgia, Hyperlipidemia, Hypertension Additional Past Medical History / Comment(s): HX OF CERVICAL CANCER WITH H YSTERECTOMY, NEW DIAGNOSIS LUNG CANCER.,STATES SOB AT TIMES, COUGHING UP BLOOD. History of Any Multi-Drug Resistant Organisms: None Reported Past Surgical History: Hysterectomy Additional Past Surgical History / Comment(s): 12/02/19 MEDIATINOSCOPY AND LYMPH NODE BX. LASER SURGERY FOR GLAUCOMA. VAGINAL HYSTERECTOMY Past Anesthesia/Blood Transfusion Reactions: Motion Sickness, Postoperative Nausea & Vomiting (PONV) Past Psychological History: Anxiety, Bipolar, Depression Smoking Status: Former smoker Past Alcohol Use History: None Reported Additional Past Alcohol Use History / Comment(s): QUIT SMOKING OCT 2019, SMOKED 1 PPD, SMOKED FOR 40 YEARS. Past Drug Use History: None Reported - Past Family History Mother Family Medical History: Cancer, Diabetes Mellitus Additional Family Medical History / Comment(s): BREAST CANCER Father Family Medical History: Cancer Additional Family Medical History / Comment(s): LUNG CANCER Medications and Allergies Home Medications Medication Instructions Recorded Confirmed Type DULoxetine HCL [Cymbalta] 60 mg PO QAM 06/04/16 12/28/19 History Bisoprolol-Hctz 5-6.25 mg [Ziac 1 tab PO QAM 10/21/19 12/28/19 History 5-6.25 MG] amLODIPine [Norvasc] 10 mg PO QAM 10/21/19 12/28/19 History Acetaminophen Tab [Tylenol] 325 mg PO DIRECTED PRN 11/30/19 12/31/19 History metFORMIN HCL 500 mg PO BID 12/28/19 12/28/19 History Allergies Allergy/AdvReac Type Severity Reaction Status Date / Time mold Allergy Unknown Dyspnea, Verified 12/31/19 06:11 Rash, Swelling Penicillins Allergy Unknown Verified 12/31/19 06:11 Childhood Physical Exam Vitals: Vital Signs Temp Pulse Pulse Resp BP Pulse Ox 01/02/20 08:15 104 H 01/02/20 08:04 100 01/02/20 08:00 98.5 F 113 H 18 91/64 96 01/02/20 04:00 98 F 109 H 18 105/61 96 01/02/20 03:06 103 H 18 01/02/20 00:00 103 H 18 01/01/20 23:42 103 H 18 95/58 95 01/01/20 21:08 104/72 01/01/20 20:00 98.1 F 125 H 20 96/69 98 01/01/20 19:53 106 H 01/01/20 19:38 104 H 03/20/20 16:29 72 01/01/20 16:19 68 01/01/20 16:00 98.9 F 99 18 103/65 98 01/01/20 12:00 80 18 95/59 01/01/20 11:10 70 01/01/20 10:58 74 Intake and Output 01/01/20 01/02/20 01/02/20 22:59 06:59 14:59 Intake Total 240 300 Output Total 150 250 Balance 90 50 Intake: Oral 240 300 Output: Chest Tube Drainage 100 Chest Tube Left 100 Urine 150 150 Other: Weight 67.5 kg PHYSICAL EXAMINATION: GENERAL: This is a pleasant 54, thin female in no acute distress at the time of my examination, HEENT: Head is atraumatic, normocephalic. Pupils equal, round. Sclera anicteric. Conjunctiva are clear. Mucous membranes of the mouth are moist. Neck is supple. There is no elevated jugular venous pressure. No carotid bruit is heard. HEART EXAMINATION: Heart S1 and S2 irregularly irregular CHEST EXAMINATION: Lungs are clear with diminished air entry bilaterally, patient has a left chest tube in place. ABDOMEN: Soft, nontender. Bowel sounds are heard. No organomegaly noted. EXTREMITIES: 2+ peripheral pulses with no evidence of peripheral edema and no calf tenderness noted. NEUROLOGIC patient is awake, alert and oriented 3 . . Results 01/02/20 05:43 01/02/20 05:43 CBC 01/02/20 Range/Units 05:43 WBC 21.7 H (3.8-10.6) k/uL RBC 3.48 L (3.80-5.40) m/uL Hgb 9.3 L (11.4-16.0) gm/dL Hct 29.5 L (34.0-46.0) % Plt Count 435 (150-450) k/uL Comprehensive Metabolic Panel 01/02/20 Range/Units 05:43 Sodium 128 L (137-145) mmol/L Potassium 3.9 (3.5-5.1) mmol/L Chloride 93 L (98-107) mmol/L Carbon Dioxide 23 (22-30) mmol/L BUN 19 H (7-17) mg/dL Creatinine 0.64 (0.52-1.04) mg/dL Glucose 157 H (74-99) mg/dL Calcium 8.7 (8.4-10.2) mg/dL Current Medications Generic Name Dose Route Start Last Admin Trade Name Freq PRN Reason Stop Dose Admin Acetaminophen 1,000 mg 01/01/20 00:01 01/01/20 08:30 Tylenol Tab PO 1,000 mg Q6HR PRN Administration Fever and/ or Pain Albuterol/Ipratropium 3 ml 12/31/19 13:56 Duoneb 0.5 Mg-3 Mg/3 Ml Soln IH RT-Q1H PRN Shortness Of Breath Or Wheezing Albuterol/Ipratropium 3 ml 12/31/19 13:56 01/02/20 08:01 Duoneb 0.5 Mg-3 Mg/3 Ml Soln IH 3 ml RT-QID LILI Administration Amlodipine Besylate 10 mg 01/01/20 09:00 01/02/20 08:28 Norvasc PO Not Given QAM LILI Bisacodyl 10 mg 12/31/19 13:56 Dulcolax RECTAL DAILY PRN Constipation Bisoprolol Fumarate 1 each 01/01/20 09:00 01/02/20 08:32 Ziac 5-6.25 PO 1 each QAM LILI Administration Duloxetine HCl 60 mg 01/01/20 09:00 01/02/20 08:28 Cymbalta PO 60 mg QAM LILI Administration Heparin Sodium (Porcine) 5,000 unit 12/31/19 16:00 01/02/20 08:28 Heparin SQ 5,000 unit Q8HR LILI Administration Amiodarone HCl 300 mg/ 250 mls @ 25 mls/hr 01/02/20 01:00 01/02/20 01:02 Dextrose/Water IV 01/02/20 18:59 0.5 mg/min .Q10H LILI 25 mls/hr Administration Protocol 0.5 MG/MIN Insulin Aspart 0 unit 12/31/19 17:30 01/02/20 06:28 Novolog SQ Not Given ACHS LILI Protocol Ketorolac Tromethamine 15 mg 12/31/19 13:56 01/02/20 05:18 Toradol IVP 01/04/20 13:56 15 mg Q6HR LILI Administration Metformin HCl 500 mg 12/31/19 17:30 01/02/20 06:31 Glucophage PO 500 mg BID-W/MEALS LILI Administration Ondansetron HCl 4 mg 12/31/19 13:56 Zofran IVP Q8HR PRN Nausea And Vomiting Pantoprazole Sodium 40 mg 01/01/20 13:30 01/02/20 08:29 Protonix IVP 40 mg DAILY LILI Administration Tramadol HCl 50 mg 01/01/20 13:00 01/02/20 08:29 Ultram PO 50 mg QID LILI Administration Intake and Output 01/01/20 01/02/20 01/02/20 22:59 06:59 14:59 Intake Total 240 300 Output Total 150 250 Balance 90 50 Intake: Oral 240 300 Output: Chest Tube Drainage 100 Chest Tube Left 100 Urine 150 150 Other: Weight 67.5 kg 01/02/20 05:43 01/02/20 05:43 EKG Interpretations (text) EKG shows atrial fibrillation with a rapid ventricular response Assessment and Plan Plan: Assessment and plan #1 status post left upper lobectomy secondary to left cavitary mass diagnosed as 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 We will discontinue the Norvasc and Ziac, put the patient just on bisoprolol. Replace magnesium. Obtain echocardiogram with Doppler study as well as a TSH level. Further recommendations to follow. DNP note has been reviewed, I agree with a documented findings and plan of care. Patient was seen and examined.
[2020-01-02] MEDS: BISOPROLOL 5 MG TAB PO SCH (10:39)
--- NOTE | 2020-01-02 11:25 | P.PN ---
Subjective Progress Note Date: 01/02/20 Principal diagnosis: Lung cancer left upper lobe. Past medical history significant for chronic obstructive pulmonary disease, type 2 diabetes mellitus, fibromyalgia, hyperlipidemia, hypertension, anxiety, depression, bipolar and cervical cancer with hysterectomy and a right POD #2 left robotic assisted thoracoscopic upper lobectomy with mediastinal lymph node dissection and bronchoscopy for mucus plugging at the conclusion of the case. Acute blood loss anemia, an expected outcome of the surgery. Postoperative paroxysmal atrial fibrillation and unexpected but potential o utcome of surgery. The patient is sitting up to the bedside chair on the cardiac stepdown unit. Frieda wolf is in no acute distress. Oxygen saturation are 96% on room air. She is achieving 500 mL on her incentive spirometry with much encouragement. Left pleural chest tube remains in place to water seal. No air leak is present. Draining thin serosanguineous drainage with 100 mL output in the last 8 hrs and 200 mL output in the last 24 hours. She reports her pain is much more controlled today to her chest tube insertion site and states that she is only having pain with taking a deep breath. Denies any complaints of shortness of breath. She remains afebrile last 24 hours. Her WBC count today is 21.7 and her Gram stain from her left upper lung tissue shows few polymorphonuclear leukocytes, few gram-negative bacilli, rare gram positive cocci and rare gram positive bacilli. The patient went into atrial fibrillation with RVR last evening and was started on an amiodarone drip per protocol and cardiology was consulted. This morning her remote telemetry continues to show atrial fibrillation with heart rate of 104. Objective - Vital Signs Vital signs: Vital Signs Temp 98 F 01/02/20 04:00 Pulse 104 H 01/02/20 08:15 Resp 18 01/02/20 04:00 BP 105/61 01/02/20 04:00 Pulse Ox 96 01/02/20 04:00 Intake & Output 01/01/20 01/02/20 01/02/20 18:59 06:59 18:59 Intake Total 840 300 Output Total 350 250 Balance 490 50 Weight 67.5 kg Intake: Oral 840 300 Output: Chest Tube Drainage 0 100 Chest Tube Left 0 100 Urine 350 150 Other: Voiding Method Indwelling Catheter - Constitutional General appearance: Present: average body habitus, cooperative, no acute distress - Respiratory Details: Lungs sounds essentially clear throughout, diminished to her left lower lobe. Respirations are symmetrical and nonlabored. Oxygen saturation are 96% on room air. Achieving 500 mL on her incentive spirometry. Left pleural chest tube remains in place to water seal. No air leak is present. Draining thin serosanguineous drainage with 100 mL output in the last 8 hours, 200 mL output in the last 24 hours. - Cardiovascular Details: Irregular rhythm with tachycardic rate. S1 and S2 present, negative for S3, gallop or murmur. Remote telemetry showing atrial fibrillation heart rate 104. No edema present. Knee-high sequential compression devices in place to bilateral lower extremities. - Gastrointestinal Gastrointestinal Comment(s): Abdomen is soft, nontender and nondistended. Active bowel sounds present in all 4 abdominal quadrants. No guarding or rigidity. No organomegaly appreciated. Tolerating oral intake. - Genitourinary Genitourinary Comment(s): Continues to void clear yellow urine. - Integumentary Integumentary Comment(s): Skin is warm and dry. No clubbing or cyanosis is present. Left thoracoscopic incision sites clean, dry and approximated. No drainage or redness is present. Left chest tube insertion site dressing is clean and dry. - Neurologic Neurologic: Present: CNII-XII intact - Musculoskeletal Musculoskeletal: Present: gait normal, generalized weakness, strength equal bilaterally - Psychiatric Psychiatric: Present: A&O x's 3, appropriate affect, intact judgment & insight - Allied health notes Allied health notes reviewed: nursing - Labs CBC & Chem 7: 01/02/20 05:43 01/02/20 05:43 Labs: Abnormal Lab Results - Last 24 Hours (Table) 01/01/20 01/01/20 01/01/20 Range/Units 11:45 16:47 20:32 WBC (3.8-10.6) k/uL RBC (3.80-5.40) m/uL Hgb (11.4-16.0) gm/dL Hct (34.0-46.0) % Sodium (137-145) mmol/L Chloride (98-107) mmol/L BUN (7-17) mg/dL Glucose (74-99) mg/dL POC Glucose (mg/dL) 171 H 145 H 267 H (75-99) mg/dL 03/21/20 03/21/20 03/21/20 Range/Units 05:43 05:43 06:24 WBC 21.7 H (3.8-10.6) k/uL RBC 3.48 L (3.80-5.40) m/uL Hgb 9.3 L (11.4-16.0) gm/dL Hct 29.5 L (34.0-46.0) % Sodium 128 L (137-145) mmol/L Chloride 93 L (98-107) mmol/L BUN 19 H (7-17) mg/dL Glucose 157 H (74-99) mg/dL POC Glucose (mg/dL) 202 H (75-99) mg/dL Microbiology - Last 24 Hours (Table) 12/31/19 11:27 Gram Stain - Preliminary Lung - Left Upper Lobe Tissue Culture - Preliminary - Imaging and Cardiology Chest x-ray: report reviewed, image reviewed Assessment and Plan Assessment: 1. Lung cancer left upper lobe, status post left robotic-assisted thoracoscopic upper lobectomy with mediastinal lymph node dissection and bronchoscopy 2. Hypertension 3. Hyperlipidemia 4. Chronic tobacco abuse 5. History of cervical cancer, status post hysterectomy 6. Type 2 diabetes mellitus 7. Anxiety 8. Bipolar disorder 9. Postoperative paroxysmal atrial fibrillation, an unexpected outcome Plan: 1. Keep left pleural chest tube in place to water seal. Continue to record accurate I&O. 2. Encourage use of her incentive spirometry every hour while awake and use it 10 times an hour. 3. Bronchodilators and pulmonary management recommendations per Dr. Arredondo. 4. Encourage ambulation, activity as tolerated. Physical/occupational therapy consulted. 5. Continue amiodarone for atrial fibrillation prophylaxis. We will start amiodarone 400 mg by mouth twice a day. Cardiology consult pending. 6. Surgical pathology results remain pending, we will follow the results. 7. Continue to monitor daily labs and chest x-rays. 8. GI and DVT prophylaxis. 9. Pain control per current when necessary orders. 10. Preliminary results from Gram stain from the tissue left upper lobe shows few polymorphonuclear leukocytes, few gram-negative bacilli, rare gram-positive cocci, and rare gram-positive bacilli. Levaquin 500 mg ivbp initiated 11. We will give potassium chloride 10 mEq by mouth 1 for potassium of 3.9. 12. More recommendations to follow based on patient's clinical course. Time with Patient: Greater than 30
--- NOTE | 2020-01-02 12:08 | P.PN ---
Subjective This is a 54-year-old female, nicotine dependent, 40 year smoking history, quit in October 2019, with recently diagnosed -poorly differentiated non-small cell CA consistent with adenocarcinoma of the left lung, possible stage IIIA, status post l mediastinotomy with biopsy; mediastinal lymph nodes,-biopsies returned negative, status post left upper lobectomy, postop day #1. Pathology pending. Pain controlled, complains of surgical soreness, tenderness at the chest tube insertion site. Chest x-ray reporting small left pleural effusion, left hemothorax with mild volume loss, no pneumothorax, no significant change. IS up to 500. Afebrile. Vital signs stable, no tachycardia. Maintaining O2 sats in the 90s on room air. 01/02/2020: Overnight apparently patient developed palpitations and atrial fibrillation. She is postop day #14 left robotic-assisted thorascopic upper lobectomy with mediastinal lymph node dissection bronchoscopy. Cardiology consult done and are following her for this now. The patient currently denies any chest pains pressures or shortness of breath. She's been given IV amiodarone was placed on amiodarone drip. Her vitals remained stable. Her hemoglobin is now 9.3 is morning. Norvasc and Ziac and been discontinued. An echo is pending for her. Objective - Vital Signs Vital signs: Vital Signs Temp 98.5 F 01/02/20 08:00 Pulse 104 H 01/02/20 08:15 Resp 18 01/02/20 08:00 BP 91/64 01/02/20 08:00 Pulse Ox 96 01/02/20 08:00 Intake & Output 01/01/20 01/02/20 01/02/20 18:59 06:59 18:59 Intake Total 840 300 100 Output Total 350 250 Balance 490 50 100 Weight 67.5 kg Intake: Oral 840 300 100 Output: Chest Tube Drainage 0 100 Chest Tube Left 0 100 Urine 350 150 Other: Voiding Method Indwelling Catheter Indwelling Catheter - Exam GENERAL: Sitting up in chair, no acute distress NECK: No JVD. No thyroid enlargement. No LNs CARDIOVASCULAR: S1, S2 regular. No murmur RESPIRATION: Breath sounds less diminished in the bases, more so on the left. Left lateral/posterior clean, dry and intact with pleural chest tube to watersea l with serosanguineous drainage. ABDOMEN: Soft, nontender . No guarding. no masses palpable. No ascites, No hepatosplenomegaly.Bowel sounds heard. LEGS: No edema. no swelling. No clubbing, no cyanosis PSYCHIATRY: Alert and oriented X3, mood and affect normal. NERVOUS SYSTEM: Cranial N 2-12 grossly normal. Moves all 4 limbs. Diffuse weakness No focal deficits. Strength and sensation grossly intact.. Skin: no rash Lymphatic system. No LN neck axilla - Labs CBC & Chem 7: 01/02/20 05:43 01/02/20 05:43 Labs: Abnormal Lab Results - Last 24 Hours (Table) 01/01/20 01/01/20 01/02/20 Range/Units 16:47 20:32 05:43 WBC 21.7 H (3.8-10.6) k/uL RBC 3.48 L (3.80-5.40) m/uL Hgb 9.3 L (11.4-16.0) gm/dL Hct 29.5 L (34.0-46.0) % Sodium (137-145) mmol/L Chloride (98-107) mmol/L BUN (7-17) mg/dL Glucose (74-99) mg/dL POC Glucose (mg/dL) 145 H 267 H (75-99) mg/dL 01/02/20 01/02/20 Range/Units 05:43 06:24 WBC (3.8-10.6) k/uL RBC (3.80-5.40) m/uL Hgb (11.4-16.0) gm/dL Hct (34.0-46.0) % Sodium 128 L (137-145) mmol/L Chloride 93 L (98-107) mmol/L BUN 19 H (7-17) mg/dL Glucose 157 H (74-99) mg/dL POC Glucose (mg/dL) 202 H (75-99) mg/dL Microbiology - Last 24 Hours (Table) 12/31/19 11:27 Gram Stain - Preliminary Lung - Left Upper Lobe Tissue Culture - Preliminary Assessment and Plan (1) S/P lobectomy of lung Current Visit: Yes Status: Acute Code(s): Z90.2 - ACQUIRED ABSENCE OF LUNG [PART OF] SNOMED Code(s): 67696825703159798 (2) Adenocarcinoma of lung Current Visit: Yes Status: Acute Code(s): C34.90 - MALIGNANT NEOPLASM OF UNSP PART OF UNSP BRONCHUS OR LUNG SNOMED Code(s): 319264986 (3) Fibromyalgia Current Visit: Yes Status: Acute Code(s): M79.7 - FIBROMYALGIA SNOMED Code(s): 756370542 (4) Cavitary lesion of lung Current Visit: No Status: Acute Code(s): J98.4 - OTHER DISORDERS OF LUNG SNOMED Code(s): 867577425 (5) Essential (primary) hypertension Current Visit: No Status: Acute Code(s): I10 - ESSENTIAL (PRIMARY) HYPERTENSION SNOMED Code(s): 18475915 (6) Major depressive disorder, recurrent, moderate Current Visit: No Status: Acute Code(s): F33.1 - MAJOR DEPRESSIVE DISORDER, RECURRENT, MODERATE SNOMED Code(s): 710572355 (7) Type 2 diabetes mellitus without complications Current Visit: No Status: Acute Code(s): E11.9 - TYPE 2 DIABETES MELLITUS WITHOUT COMPLICATIONS SNOMED Code(s): 770962538 Plan: Continue her current medication regimen. Cardiology recommendations were noted. We'll await further treatment by thoracic surgery. He has not been started on Levaquin due to leukocytosis. Pulmonology recommendations were noted as well. She remains on a NovoLog scale a little metformin twice a day with meals. Her sugars remain somewhat controlled. Repeat labs in a.m. and reevaluate in the next 24 hours.
[2020-01-02 12:25] LABS: Glucose,Whole Blood 210 mg/dL (75-99)
[2020-01-02] MEDS: MAGNESIUM SULFATE-D5W PMX 1 GM in DEXTROSE/WATER 1 100ML.BAG IVPB SCH ×2 (12:36→14:53)
[2020-01-02] MEDS: LEVOFLOXACIN 500MG-D5W PMX 500 MG in DEXTROSE/WATER 1 100ML.BAG IVPB SCH (12:46)
--- NOTE | 2020-01-02 13:02 | P.PN ---
Subjective Progress Note Date: 01/02/20 Principal diagnosis: Status post left upper lobectomy for non-small cell/adenocarcinoma of the left lung postoperative day #2 This is a 54-year-old female, [id number] smoking history, continues to smoke, patient was recently discovered to have a left cavitary mass in the apex. This was diagnosed as poorly differentiated non-small cell cancer consistent with adenocarcinoma. Patient underwent PET scan showed marked uptake in the left upper lobe as well as in the left upper hilum, L5 distribution. Patient was presented in the tumor Board, and she was initially felt that she may have stage IIIa carcinoma, patient was recommended to undergo induction chemotherapy followed by lobectomy and preoperative surgical staging was requested. Recently, the patient underwent thoracoscopic mediastinotomy with biopsy of the AP window and mediastinal lymph nodes, and all came back negative.. Hence patient was advised to undergo left upper lobectomy which was done today. Her postoperative course was basically uneventful, I was asked to see her on consultation. Patient is relatively asymptomatic, she has some pain from the surgical site otherwise she denies any cough wheezing shortness of breath. On 01/01/2020 patient seen in follow-up on selective care unit. This is po stoperative day 1 status post robotic-assisted thorascopic left upper lobectomy with mediastinal lymph node dissection and bronchoscopy for mucous plugging at the conclusion of the case. Pathology of the left upper lobe for permanent section and frozen section of bronchial margin, lymph node stations of L8, L9, LDL 10, LV 11 and level VII is still pending at this time, patient is awake and alert, room air pulse ox is 96%, she is afebrile, hemodynamically patient stable, she is working on her incentive spirometer, she is having soreness and discomfort at the incision site, she is achieving 500 mL on the incentive spirometer, today's chest x-ray has been reviewed showing small left pleural ef fusion and left hemithorax with mild volume loss, no pneumothorax. Left-sided chest tube has been placed to waterseal, and there has been 362 mL of thin serosanguineous output in the last 24 hours from the left-sided chest tube. Today's labs have been reviewed, white blood cell count is 13.9, hemoglobin is 9.2, sodium is 1:30, potassium is 4.0, chloride is 95, CO2 is 28, BUN 13 creatinine 0.5 Reevaluated today on 01/02/20, patient is on the cardiac floor, doing well, however last night she developed an episode of atrial fibrillation with RVR. Patient is presently on amiodarone, not in any anticoagulation at this point yet. Patient responded well to amiodarone, and she is basically now in sinus rhythm. Asymptomatic, doing quite well, compliant with her incentive spirometer. No cough no wheezing, no fever no chills, however her white count went up to 21.7. Hemoglobin is 9.3. Sputum is showing multiple microorganisms, possibly normal oral rachelle. However considering her significant elevation in WBC count, recommended antibiotics in the form of Levaquin. Chest x-ray is showing slight air-fluid level in the left midlung area. Chest tube remains in place Objective - Vital Signs Vital signs: Vital Signs Temp 98.5 F 01/02/20 08:00 Pulse 104 H 01/02/20 08:15 Resp 18 01/02/20 08:00 BP 91/64 01/02/20 08:00 Pulse Ox 96 01/02/20 08:00 Intake & Output 01/01/20 01/02/20 01/02/20 18:59 06:59 18:59 Intake Total 840 300 100 Output Total 350 250 Balance 490 50 100 Weight 67.5 kg Intake: Oral 840 300 100 Output: Chest Tube Drainage 0 100 Chest Tube Left 0 100 Urine 350 150 Other: Voiding Method Indwelling Catheter Indwelling Catheter - Exam GENERAL EXAM: Revealed a 54-year-old female in no distress. HEENT: PERRLA, EOMI, no icterus. Dry mucous membranes. CHEST: No chest wall deformity. Symmetrical expansion. left lateral and left posterior thoracoscopic incisions covered with dressings, clean dry and intact, left anterior chest chest tube in place to waterseal, serosanguineous output in the Pleur-evac, without evidence of air leak LUNGS: Equal air entry with no crackles, wheeze, rhonchi or dullness.breath sounds at bilateral bases CVS: Regular rate and rhythm, normal S1 and S2, no gallops, no murmurs, no rubs ABDOMEN: Soft, nontender. No hepatosplenomegaly, normal bowel sounds, no guarding or rigidity. EXTREMITIES: No clubbing, no edema, no cyanosis, 2+ pulses and upper and lower extremities. MUSCULOSKELETAL: Muscle strength and tone normal. SPINE: No scoliosis or deformity SKIN: No rashes CENTRAL NERVOUS SYSTEM: Alert and oriented -3. No focal deficits, tone is normal in all 4 extremities. PSYCHIATRIC: Alert and oriented -3. Appropriate affect. Intact judgment and insight. - Labs CBC & Chem 7: 01/02/20 05:43 01/02/20 05:43 Labs: Abnormal Lab Results - Last 24 Hours (Table) 01/01/20 01/01/20 01/02/20 Range/Units 16:47 20:32 05:43 WBC 21.7 H (3.8-10.6) k/uL RBC 3.48 L (3.80-5.40) m/uL Hgb 9.3 L (11.4-16.0) gm/dL Hct 29.5 L (34.0-46.0) % Sodium (137-145) mmol/L Chloride (98-107) mmol/L BUN (7-17) mg/dL Glucose (74-99) mg/dL POC Glucose (mg/dL) 145 H 267 H (75-99) mg/dL 01/02/20 01/02/20 01/02/20 Range/Units 05:43 06:24 12:19 WBC (3.8-10.6) k/uL RBC (3.80-5.40) m/uL Hgb (11.4-16.0) gm/dL Hct (34.0-46.0) % Sodium 128 L (137-145) mmol/L Chloride 93 L (98-107) mmol/L BUN 19 H (7-17) mg/dL Glucose 157 H (74-99) mg/dL POC Glucose (mg/dL) 202 H 210 H (75-99) mg/dL Microbiology - Last 24 Hours (Table) 12/31/19 11:27 Gram Stain - Preliminary Lung - Left Upper Lobe Tissue Culture - Preliminary Assessment and Plan Assessment: Impression: Status post left upper lobectomy, postoperative day #2 Left upper lobe cavitary mass/lung adenocarcinoma, biopsy-proven. Tobacco dependence syndrome/chronic smoker. History of cervical cancer. Type 2 diabetes Hypertension Hyperlipidemia New-onset atrial fibrillation with RVR requiring amiodarone, and being addressed by cardiology. Expected after lobectomy or pneumonectomy. Recommendation: Start empiric antibiotics in the form of Levaquin 500 milligrams daily Continue chest tube to suction Continue bronchodilators Resume home meds Incentive spirometry Pain control, seems to be adequate. Ambulate. We'll follow Time with Patient: Less than 30
[2020-01-02 17:02] LABS: Glucose,Whole Blood 214 mg/dL (75-99)
[2020-01-02] MEDS: AMIODARONE 200 MG TAB PO SCH (20:18)
[2020-01-02 20:43] LABS: Glucose,Whole Blood 196 mg/dL (75-99)
[2020-01-03] MEDS: KETOROLAC 30 MG/ML 1 ML VIAL IVP SCH ×4 (05:48→22:21)
[2020-01-03] MEDS: INSULIN ASPART (NovoLOG) 100 UNIT/ML VIAL SQ SCH ×4 (06:15→20:17)
[2020-01-03] MEDS: metFORMIN 500 MG TAB PO SCH ×2 (06:16→18:09)
[2020-01-03 06:20] LABS: Glucose,Whole Blood 179 mg/dL (75-99)
[2020-01-03 06:28] LABS: Basophils % (A) 0 %; Eosinophils % (A) 0 %; HCT 27.1 % (34.0-46.0); HGB 8.7 gm/dL (11.4-16.0); Lymphocytes # (A) 0.9 k/uL (1.0-4.8); Lymphocytes % (A) 5 %; MCH 26.4 pg (25.0-35.0); MCV 82.5 fL (80.0-100.0); Mean Platelet Volume 7.5; Monocytes # (A) 0.6 k/uL (0-1.0); Monocytes % (A) 4 %; Neutrophils # (A) 15.3 k/uL (1.3-7.7); Neutrophils % (A) 88 %; Platelet Count 522 k/uL (150-450); RBC 3.29 m/uL (3.80-5.40); RDW 14.1 % (11.5-15.5); WBC 17.4 k/uL (3.8-10.6)
[2020-01-03 06:42] LABS: ALT 7 U/L (4-34); AST 17 U/L (14-36); African American GFR (CKD) >90 (>60 ml/min/1.73 sqM); Albumin 2.7 g/dL (3.5-5.0); Alkaline Phosphatase 134 U/L (38-126); Anion Gap 12 mmol/L; Blood Urea Nitrogen 15 mg/dL (7-17); Calcium 8.3 mg/dL (8.4-10.2); Carbon Dioxide 24 mmol/L (22-30); Chloride 89 mmol/L (98-107); Glucose 147 mg/dL (74-99); Magnesium 2.2 mg/dL (1.6-2.3); Non-African American GFR(CKD) >90 (>60 ml/min/1.73 sqM); Potassium 4.1 mmol/L (3.5-5.1); Sodium 125 mmol/L (137-145); Total Bilirubin 0.6 mg/dL (0.2-1.3); Total Protein 5.6 g/dL (6.3-8.2)
--- NOTE | 2020-01-03 06:51 | XR ---
EXAMINATION TYPE: XR chest 1V portable DATE OF EXAM: 01/03/2020 HISTORY: Postoperative left upper lobectomy. REFERENCE: Previous study dated 01/02/2020. FINDINGS: There is an enlarging air-fluid level in the left hemithorax. Mediastinal structures are no t shifted. The right lung is clear. A left pleural drain is in place. I no longer see free intraperit gracia air. IMPRESSION: RISING AIR-FLUID LEVEL IN THE LEFT HEMITHORAX.
[2020-01-03] MEDS ORDERED: DEXTROSE 5% IN WATER 100 ML with AMIODARONE 150 MG IV ONE (07:54)
[2020-01-03] MEDS: traMADol 50 MG TAB PO SCH (08:06)
[2020-01-03] MEDS: HEPARIN SODIUM,PORCINE 5,000 UNIT/ML 1 ML VIAL SQ SCH (08:06)
[2020-01-03] MEDS: AMIODARONE 200 MG TAB PO SCH ×2 (08:06→20:13)
[2020-01-03] MEDS: BISOPROLOL 5 MG TAB PO SCH (08:06)
[2020-01-03] MEDS: PANTOPRAZOLE 40 MG/10 ML VIAL IVP SCH (08:06)
[2020-01-03] MEDS: DULoxetine HCL 60 MG CAPSULE.DR PO SCH (08:07)
[2020-01-03] MEDS: IPRATROPIUM-ALBUTEROL 3 ML NEB IH SCH ×4 (08:37→22:01)
--- NOTE | 2020-01-03 09:35 | ECHOF ---
Referral Reason:afib MEASUREMENTS -------- HEIGHT: 172.7 cm WEIGHT: 67.1 kg BP: 91/63 RVIDd: 3.7 cm (< 3.3) IVSd: 1.0 cm (0.6 - 1.1) LVIDd: 4.5 cm (3.9 - 5.3) LVPWd: 1.3 cm (0.6 - 1.1) IVSs: 1.4 cm LVIDs: 2.8 cm LVPWs: 1.8 cm LAESV Index (A-L): 18.06 ml/m Ao Diam: 2.6 cm (2.0 - 3.7) AV Cusp: 1.9 cm (1.5 - 2.6) MV EXCURSION: 13.341 mm (> 18.000) MV EF SLOPE: 33 mm/s (70 - 150) EPSS: 0.7 cm MV E Sergio: 1.21 m/s MV DecT: 203 ms MV A Sergio: 1.31 m/s MV E/A Ratio: 0.92 RAP: 5.00 mmHg RVSP: 28.61 mmHg FINDINGS -------- Sinus rhythm. This was a technically adequate study. The left ventricular size is normal. There is borderline concentric left ventricular hypertrophy. Overall left ventricular systolic function is normal with, an EF between 55 - 60 %. The diastolic filling pattern is normal for the age of the patient 19.83. The right ventricle is mild to moderately enlarged. Normal LA size by volume 22+/-6 ml/m2. The right atrial size is normal. Interatrial and interventricular septum intact. The aortic valve is trileaflet, and appears structurally normal. No aortic stenosis or regurgitation. The mitral valve leaflets are mildly thickened. Mild mitral regurgitation is present. Mild tricuspid regurgitation present. There is no evidence of pulmonary hypertension. The right v entricular systolic pressure, as measured by Doppler, is 28.61mmHg. There is no pulmonic regurgitation present. The aortic root size is normal. Normal inferior vena cava with normal inspiratory collapse consistent with estimated right atrial pre ssure of 5 mmHg. There is no pericardial effusion. CONCLUSIONS -------- 1. Sinus rhythm. 2. The left ventricular size is normal. 3. There is borderline concentric left ventricular hypertrophy. 4. Overall left ventricular systolic function is normal with, an EF between 55 - 60 %. 5. The diastolic filling pattern is normal for the age of the patient 19.83 6. The right ventricle is mild to moderately enlarged. 7. Normal LA size by volume 22+/-6 ml/m2. 8. The aortic valve is trileaflet, and appears structurally normal. No aortic stenosis or regurgitati on. 9. Mild mitral regurgitation is present. 10. Mild tricuspid regurgitation present. 11. There is no evidence of pulmonary hypertension. 12. There is no pulmonic regurgitation present. 13. Normal inferior vena cava with normal inspiratory collapse consistent with estimated right atrial pressure of 5 mmHg. 14. There is no pericardial effusion. SAMPLE HAND: Angy Araya RDCS
--- NOTE | 2020-01-03 10:19 | P.PN ---
Subjective Progress Note Date: 01/03/20 Principal diagnosis: Lung cancer left upper lobe. Past medical history significant for chronic obstructive pulmonary disease, type 2 diabetes mellitus, fibromyalgia, hyperlipidemia, hypertension, anxiety, depression, bipolar and cervical cancer with hysterectomy and chronic tobacco abuse. POD #3 left robotic assisted thoracoscopic upper lobectomy with mediastinal lymph node dissection and bronchoscopy for mucus plugging at the conclusion of the case. Acute blood loss anemia, an expected outcome of the surgery. Postoperative paroxysmal atrial fibrillation and unexpected but potential outcome of surgery. The patient is sitting up to the bedside chair on the cardiac stepdown unit. She is in no acute distress. Oxygen saturation are 95% on room air. She is achieving 500 mL on her incentive spirometry with much encouragement. Left pleural chest tube remains in place to water seal. No air leak is present. Draining thin serosanguineous drainage with 180 mL output in the last 24 hours. Denies any complaints of pain or shortness of breath at this time. She reports she has been ambulating in her room with assistance from nursing staff. She remains afebrile. She was started on Levaquin 500 mg IV piggyback every 24 hours yesterday as her WBC count was trending up and her pulmonary Gram stain tissue left upper lung showed few polymorphonuclear leukocytes, few gram- negative bacilli, rare gram-positive cocci and rare gram-positive bacilli. Today her WBC count is 17.4. Her remote telemetry this morning is showing atrial fibrillation heart rate 111 and she remains on oral amiodarone 400 mg by mouth twice a day. She is complaining of a productive cough with white thin sputum. Objective - Vital Signs Vital signs: Vital Signs Temp 97.6 F 01/03/20 08:00 Pulse 105 H 01/03/20 08:48 Resp 20 01/03/20 08:00 BP 106/64 01/03/20 08:00 Pulse Ox 95 01/03/20 08:00 Intake & Output 01/02/20 01/03/20 01/03/20 18:59 06:59 18:59 Intake Total 400 110 100 Output Total 950 Balance 400 -840 100 Weight 69.7 kg Intake: Oral 400 110 100 Output: Urine 950 Other: Voiding Method Indwelling Catheter Toilet Toilet # Voids 2 - Constitutional General appearance: Present: average body habitus, cooperative, no acute distress - Respiratory Details: Lungs sounds essentially clear throughout, diminished to her left lower lobe. Respirations are symmetrical and nonlabored. Oxygen saturation are 95% on room air. Achieving 500 mL on her incentive spirometry. Left pleural chest tube remains in place to water seal. No air leak is present. Draining thin serosanguineous drainage with 180 mL output in the last 24 hours. - Cardiovascular Details: Irregular rhythm with tachycardic rate. S1 and S2 present, negative for S3, gallop or murmur. Remote telemetry showing atrial fibrillation heart rate 111. No edema present. Knee-high sequential compression devices in place to bilateral lower extremities. - Gastrointestinal Gastrointestinal Comment(s): Abdomen is soft, nontender and nondistended. Active bowel sounds present in all 4 abdominal quadrants. No guarding or rigidity. No organomegaly appreciated. Tolerating oral intake. - Genitourinary Genitourinary Comment(s): Continues to void clear yellow urine. - Integumentary Integumentary Comment(s): Skin is warm and dry. No clubbing or cyanosis is present. Left thoracoscopic incision sites clean, dry and approximated. No drainage or redness is present. Left chest tube insertion site dressing is clean and dry. - Neurologic Neurologic: Present: CNII-XII intact - Musculoskeletal Musculoskeletal: Present: gait normal, generalized weakness, strength equal bilaterally - Psychiatric Psychiatric: Present: A&O x's 3, appropriate affect, intact judgment & insight - Labs CBC & Chem 7: 01/03/20 06:04 01/03/20 06:04 Labs: Abnormal Lab Results - Last 24 Hours (Table) 01/02/20 01/02/20 01/02/20 Range/Units 12:19 16:55 20:41 WBC (3.8-10.6) k/uL RBC (3.80-5.40) m/uL Hgb (11.4-16.0) gm/dL Hct (34.0-46.0) % Plt Count (150-450) k/uL Neutrophils # (1.3-7.7) k/uL Lymphocytes # (1.0-4.8) k/uL Sodium (137-145) mmol/L Chloride (98-107) mmol/L Glucose (74-99) mg/dL POC Glucose (mg/dL) 210 H 214 H 196 H (75-99) mg/dL Calcium (8.4-10.2) mg/dL Alkaline Phosphatase (38-126) U/L Total Protein (6.3-8.2) g/dL Albumin (3.5-5.0) g/dL 01/03/20 01/03/20 01/03/20 Range/Units 06:04 06:04 06:15 WBC 17.4 H (3.8-10.6) k/uL RBC 3.29 L (3.80-5.40) m/uL Hgb 8.7 L (11.4-16.0) gm/dL Hct 27.1 L (34.0-46.0) % Plt Count 522 H (150-450) k/uL Neutrophils # 15.3 H (1.3-7.7) k/uL Lymphocytes # 0.9 L (1.0-4.8) k/uL Sodium 125 L (137-145) mmol/L Chloride 89 L (98-107) mmol/L Glucose 147 H (74-99) mg/dL POC Glucose (mg/dL) 179 H (75-99) mg/dL Calcium 8.3 L (8.4-10.2) mg/dL Alkaline Phosphatase 134 H (38-126) U/L Total Protein 5.6 L (6.3-8.2) g/dL Albumin 2.7 L (3.5-5.0) g/dL - Imaging and Cardiology Chest x-ray: report reviewed, image reviewed Assessment and Plan Assessment: 1. Lung cancer left upper lobe, status post left robotic-assisted thoracoscopic upper lobectomy with mediastinal lymph node dissection and bronchoscopy 2. Hypertension 3. Hyperlipidemia 4. Chronic tobacco abuse 5. History of cervical cancer, status post hysterectomy 6. Type 2 diabetes mellitus 7. Anxiety 8. Bipolar disorder 9. Postoperative paroxysmal atrial fibrillation, an unexpected outcome Plan: 1. Left pleural chest tube removed today without incident at 9:30 AM. 2. Encourage use of her incentive spirometry every hour while awake and use it 10 times an hour. 3. Bronchodilators and pulmonary management recommendations per Dr. Arredondo. 4. Encourage ambulation, activity as tolerated. Physical/occupational therapy following. 5. Continue amiodarone 400 mg by mouth twice a day for atrial fibrillation prophylaxis. Given amiodarone 150 mg IV piggyback bolus 1 now. 6. Surgical pathology results remain pending, we will follow the results. 7. Continue to monitor daily labs and chest x-rays. 8. GI and DVT prophylaxis. 9. Pain control per current when necessary orders. Discontinue all tramadol. 10. Preliminary results from Gram stain from the tissue left upper lobe shows few polymorphonuclear leukocytes, few gram-negative bacilli, rare gram-positive cocci, and rare gram-positive bacilli. Continue Levaquin 500 mg ivbp every 24 hours. 11. Anticipate discharge home within the next 24 hours. 12. Cardiology consult and noted appreciated. 13. May start Eliquis 5 mg po BID per cardiothoracic surgery standpoint. 14 More recommendations to follow based on patient's clinical course. Time with Patient: Greater than 30
[2020-01-03] MEDS: LEVOFLOXACIN 500MG-D5W PMX 500 MG in DEXTROSE/WATER 1 100ML.BAG IVPB SCH (11:05)
[2020-01-03] MEDS: SODIUM CHLORIDE 0.9% 1,000 ML IV SCH ×2 (11:09→20:13)
--- NOTE | 2020-01-03 11:11 | P.PN ---
Subjective This is a 54-year-old female, nicotine dependent, 40 year smoking history, quit in October 2019, with recently diagnosed -poorly differentiated non-small cell CA consistent with adenocarcinoma of the left lung, possible stage IIIA, status post l mediastinotomy with biopsy; mediastinal lymph nodes,-biopsies returned negative, status post left upper lobectomy, postop day #1. Pathology pending. Pain controlled, complains of surgical soreness, tenderness at the chest tube insertion site. Chest x-ray reporting small left pleural effusion, left hemothorax with mild volume loss, no pneumothorax, no significant change. IS up to 500. Afebrile. Vital signs stable, no tachycardia. Maintaining O2 sats in the 90s on room air. 01/02/2020: Overnight apparently patient developed palpitations and atrial fibrillation. She is postop day #1 left robotic-assisted thorascopic upper lobectomy with mediastinal lymph node dissection bronchoscopy. Cardiology consult done and are following her for this now. The patient currently denies any chest pains pressures or shortness of breath. She's been given IV amiodarone was placed on amiodarone drip. Her vitals remained stable. Her hemoglobin is now 9.3 is morning. Norvasc and Ziac and been discontinued. An echo is pending for her. 01/03/2020: Patient has had her chest tube removed by thoracic surgery. She is postop day #2 for the robot assisted lobectomy due to her adenocarcinoma of the lung. She looks well and indicates/shortness of breath. She has no chest pains at this time other than surgical. She continues to have A. fib and is now cleared for anticoagulation. Thoracic surgery of olena Rios. She continues on amiodarone orally. Blood pressure temperature remained stable. Pulse remains controlled but in the low 100s. Hemoglobin is now dropped to 8.7. WBC count is also decreased to 17.4. She is hyponatremic with a sodium 125. D5W has been discontinued. Glucose remained stable. Objective - Vital Signs Vital signs: Vital Signs Temp 97.6 F 01/03/20 08:00 Pulse 105 H 01/03/20 08:48 Resp 20 01/03/20 08:00 BP 106/64 01/03/20 08:00 Pulse Ox 95 01/03/20 08:00 Intake & Output 01/02/20 01/03/20 01/03/20 18:59 06:59 18:59 Intake Total 400 110 100 Output Total 950 Balance 400 -840 100 Weight 69.7 kg Intake: Oral 400 110 100 Output: Urine 950 Other: Voiding Method Indwelling Catheter Toilet Toilet # Voids 2 - Exam GENERAL: Sitting up in chair, no acute distress NECK: No JVD. No thyroid enlargement. No LNs CARDIOVASCULAR: S1, S2 regular. No murmur RESPIRATION: Breath sounds less diminished and the chest tube have been discontinued. ABDOMEN: Soft, nontender . No guarding. no masses palpable. No ascites, No hepatosplenomegaly.Bowel sounds heard. LEGS: No edema. no swelling. No clubbing, no cyanosis PSYCHIATRY: Alert and oriented X3, mood and affect normal. NERVOUS SYSTEM: Cranial N 2-12 grossly normal. Moves all 4 limbs. Diffuse weakness No focal deficits. Strength and sensation grossly intact.. Skin: no rash Lymphatic system. No LN neck axilla - Labs CBC & Chem 7: 01/03/20 06:04 01/03/20 06:04 Labs: Abnormal Lab Results - Last 24 Hours (Table) 01/02/20 01/02/20 01/02/20 Range/Units 12:19 16:55 20:41 WBC (3.8-10.6) k/uL RBC (3.80-5.40) m/uL Hgb (11.4-16.0) gm/dL Hct (34.0-46.0) % Plt Count (150-450) k/uL Neutrophils # (1.3-7.7) k/uL Lymphocytes # (1.0-4.8) k/uL Sodium (137-145) mmol/L Chloride (98-107) mmol/L Glucose (74-99) mg/dL POC Glucose (mg/dL) 210 H 214 H 196 H (75-99) mg/dL Calcium (8.4-10.2) mg/dL Alkaline Phosphatase (38-126) U/L Total Protein (6.3-8.2) g/dL Albumin (3.5-5.0) g/dL 01/03/20 01/03/20 01/03/20 Range/Units 06:04 06:04 06:15 WBC 17.4 H (3.8-10.6) k/uL RBC 3.29 L (3.80-5.40) m/uL Hgb 8.7 L (11.4-16.0) gm/dL Hct 27.1 L (34.0-46.0) % Plt Count 522 H (150-450) k/uL Neutrophils # 15.3 H (1.3-7.7) k/uL Lymphocytes # 0.9 L (1.0-4.8) k/uL Sodium 125 L (137-145) mmol/L Chloride 89 L (98-107) mmol/L Glucose 147 H (74-99) mg/dL POC Glucose (mg/dL) 179 H (75-99) mg/dL Calcium 8.3 L (8.4-10.2) mg/dL Alkaline Phosphatase 134 H (38-126) U/L Total Protein 5.6 L (6.3-8.2) g/dL Albumin 2.7 L (3.5-5.0) g/dL Assessment and Plan (1) S/P lobectomy of lung Current Visit: Yes Status: Acute Code(s): Z90.2 - ACQUIRED ABSENCE OF LUNG [PART OF] SNOMED Code(s): 83484809566349222 (2) Adenocarcinoma of lung Current Visit: Yes Status: Acute Code(s): C34.90 - MALIGNANT NEOPLASM OF UNSP PART OF UNSP BRONCHUS OR LUNG SNOMED Code(s): 247893452 (3) Fibromyalgia Current Visit: Yes Status: Acute Code(s): M79.7 - FIBROMYALGIA SNOMED Code(s): 986396659 (4) Cavitary lesion of lung Current Visit: No Status: Acute Code(s): J98.4 - OTHER DISORDERS OF LUNG SNOMED Code(s): 738094656 (5) Essential (primary) hypertension Current Visit: No Status: Acute Code(s): I10 - ESSENTIAL (PRIMARY) HYPERTENSION SNOMED Code(s): 63568716 (6) Major depressive disorder, recurrent, moderate Current Visit: No Status: Acute Code(s): F33.1 - MAJOR DEPRESSIVE DISORDER, RECURRENT, MODERATE SNOMED Code(s): 859870810 (7) Type 2 diabetes mellitus without complications Current Visit: No Status: Acute Code(s): E11.9 - TYPE 2 DIABETES MELLITUS WITHOUT COMPLICATIONS SNOMED Code(s): 950152086 (8) Hyponatremia Current Visit: Yes Status: Acute Code(s): E87.1 - HYPO-OSMOLALITY AND HYPONATREMIA SNOMED Code(s): 86326534 Plan: Continue her current medication regimen. Cardiology recommendations were noted. We'll await further treatment by thoracic surgery. She remains on the Levaquin for the leukocytosis suspected early pneumonia. Pulmonology recommendations were noted as well. She remains on a NovoLog scale a little metformin twice a day with meals. Her sugars remain somewhat controlled. Repeat labs in a.m. and reevaluate in the next 24 hours. We'll start her on normal saline 75 mL an hour to help correct her hyponatremia. She'll be reevaluated in the next 24 hours per thoracic surgery and clear for discharge in the next 24 hours.
--- NOTE | 2020-01-03 11:29 | PN ---
PROGRESS NOTE This patient is status post lobectomy. The patient went back into the normal sinus rhythm yesterday and then she went back into the atrial fibrillation. The patient's heart rate remains in the range of 100-120. Patient remains asymptomatic. Chest tube is removed. First and second heart sounds are normal. Lungs are clear to auscultation and percussion. We will continue the current medications. We will start the patient on Eliquis 5 mg b.i.d. MMODL / IJN: [id number] /
[2020-01-03 11:40] LABS: Glucose,Whole Blood 199 mg/dL (75-99)
--- NOTE | 2020-01-03 14:20 | P.PN ---
Subjective Progress Note Date: 01/03/20 Principal diagnosis: Non-small cell/adenocarcinoma of the left lung, post op day #3 of left upper lobectomy This is a 54-year-old female, [id number] smoking history, continues to smoke, patient was recently discovered to have a left cavitary mass in the apex. This was diagnosed as poorly differentiated non-small cell cancer consistent with adenocarcinoma. Patient underwent PET scan showed marked uptake in the left upper lobe as well as in the left upper hilum, L5 distribution. Patient was presented in the tumor Board, and she was initially felt that she may have stage IIIa carcinoma, patient was recommended to undergo induction chemotherapy followed by lobectomy and preoperative surgical staging was requested. Recently, the patient underwent thoracoscopic mediastinotomy with biopsy of the AP window and mediastinal lymph nodes, and all came back negative.. Hence patient was advised to undergo left upper lobectomy which was done today. Her postoperative course was basically uneventful, I was asked to see her on consultation. Patient is relatively asymptomatic, she has some pain from the surgical site otherwise she denies any cough wheezing shortness of breath. On 01/01/2020 patient seen in follow-up on selective care unit. This is postoperative day 1 status post robotic-assisted thorascopic left upper lobectomy with mediastinal lymph node dissection and bronchoscopy for mucous plugging at the conclusion of the case. Pathology of the left upper lobe for permanent section and frozen section of bronchial margin, lymph node stations of L8, L9, LDL 10, LV 11 and level VII is still pending at this time, patient is awake and alert, room air pulse ox is 96%, she is afebrile, hemodynamically patient stable, she is working on her incentive spirometer, she is having soreness and discomfort at the incision site, she is achieving 500 mL on the incentive spirometer, today's chest x-ray has been reviewed showing small left pleural effusion and left hemithorax with mild volume loss, no pneumothorax. Left-sided chest tube has been placed to waterseal, and there has been 362 mL of thin serosanguineous output in the last 24 hours from the left-sided chest tube. Today's labs have been reviewed, white blood cell count is 13.9, hemoglobin is 9.2, sodium is 1:30, potassium is 4.0, chloride is 95, CO2 is 28, BUN 13 creatinine 0.5 Reevaluated today on 3/21/20, patient is on the cardiac floor, doing well, however last night she developed an episode of atrial fibrillation with RVR. Patient is presently on amiodarone, not in any anticoagulation at this point yet. Patient responded well to amiodarone, and she is basically now in sinus rhythm. Asymptomatic, doing quite well, compliant with her incentive spirometer. No cough no wheezing, no fever no chills, however her white count went up to 21.7. Hemoglobin is 9.3. Sputum is showing multiple microorganisms, possibly normal oral rachelle. However considering her significant elevation in WB C count, recommended antibiotics in the form of Levaquin. Chest x-ray is showing slight air-fluid level in the left midlung area. Chest tube remains in place The patient is seen today 01/03/2020 in follow-up on the selective care unit. She is currently sitting up in a chair at the bedside. Awake and alert in no acute distress. She denies any worsening shortness of breath, cough or congestion. She is maintaining O2 saturations in the 90s on room air. She has had paroxysmal atrial fibrillation with RVR. She is currently in sinus rhythm. She received amiodarone bolus times one and currently on oral amiodarone. Chest tube was removed this morning. Chest x-ray shows increasing air-fluid level in the left lung. White count 17.4. Hemoglobin 8.7. Sodium 125. Creatinine 0.54. Remains on Levaquin and bronchodilators. Needs increased encouragement regarding these the incentive spirometer. Pulling approximate 500 ML's. Objective - Vital Signs Vital signs: Vital Signs Temp 98.1 F 01/03/20 11:22 Pulse 82 01/03/20 13:27 Resp 20 01/03/20 11:22 BP 100/62 01/03/20 11:22 Pulse Ox 98 01/03/20 11:22 Intake & Output 01/02/20 01/03/20 01/03/20 18:59 06:59 18:59 Intake Total 400 110 100 Output Total 950 Balance 400 -840 100 Weight 69.7 kg Intake: Oral 400 110 100 Output: Urine 950 Other: Voiding Method Indwelling Catheter Toilet Toilet # Voids 2 - Exam GENERAL EXAM: Alert, active, very pleasant 54-year-old female patient, on room air,comfortable in no apparent distress. HEAD: Normocephalic. EYES: Normal reaction of pupils, equal size. NOSE: Clear with pink turbinates. THROAT: No erythema or exudates. NECK: No masses, no JVD. CHEST: No chest wall deformity. LUNGS: Equal air entry with crackles in the left lung base, diminished. CVS: S1 and S2 normal with no audible murmur, regular rhythm. ABDOMEN: No hepatosplenomegaly, normal bowel sounds, no guarding or rigidity. SPINE: No scoliosis or deformity SKIN: No rashes CENTRAL NERVOUS SYSTEM: No focal deficits, tone is normal in all 4 extremities. EXTREMITIES: There is no peripheral edema. No clubbing, no cyanosis. Peripheral pulses are intact. - Labs CBC & Chem 7: 01/03/20 06:04 01/03/20 06:04 Labs: Abnormal Lab Results - Last 24 Hours (Table) 01/02/20 01/02/20 01/03/20 Range/Units 16:55 20:41 06:04 WBC 17.4 H (3.8-10.6) k/uL RBC 3.29 L (3.80-5.40) m/uL Hgb 8.7 L (11.4-16.0) gm/dL Hct 27.1 L (34.0-46.0) % Plt Count 522 H (150-450) k/uL Neutrophils # 15.3 H (1.3-7.7) k/uL Lymphocytes # 0.9 L (1.0-4.8) k/uL Sodium (137-145) mmol/L Chloride (98-107) mmol/L Glucose (74-99) mg/dL POC Glucose (mg/dL) 214 H 196 H (75-99) mg/dL Calcium (8.4-10.2) mg/dL Alkaline Phosphatase (38-126) U/L Total Protein (6.3-8.2) g/dL Albumin (3.5-5.0) g/dL 01/03/20 01/03/20 01/03/20 Range/Units 06:04 06:15 11:25 WBC (3.8-10.6) k/uL RBC (3.80-5.40) m/uL Hgb (11.4-16.0) gm/dL Hct (34.0-46.0) % Plt Count (150-450) k/uL Neutrophils # (1.3-7.7) k/uL Lymphocytes # (1.0-4.8) k/uL Sodium 125 L (137-145) mmol/L Chloride 89 L (98-107) mmol/L Glucose 147 H (74-99) mg/dL POC Glucose (mg/dL) 179 H 199 H (75-99) mg/dL Calcium 8.3 L (8.4-10.2) mg/dL Alkaline Phosphatase 134 H (38-126) U/L Total Protein 5.6 L (6.3-8.2) g/dL Albumin 2.7 L (3.5-5.0) g/dL Assessment and Plan Assessment: Status post left upper lobectomy, postoperative day #3 Left upper lobe cavitary mass/lung adenocarcinoma, biopsy-proven. Tobacco dependence syndrome/chronic smoker. History of cervical cancer. Type 2 diabetes Hypertension Hyperlipidemia New-onset atrial fibrillation with RVR requiring amiodarone plan: The patient was seen and evaluated by Dr. Arredondo Chest x-ray reviewed, chest tube removed Encourage increased use of the incentive spirometer and cough and deep breathing exercises Continue Levaquin Continue bronchodilators We'll continue to follow I, the cosigning physician, performed a history & physical examination of the patient. Lungs sounds with crackles in the left lung base, diminished. Maintaining good O2 saturations in the 90s on room air. I discussed the assessment and plan of care with my nurse practitioner, Jazmín Arndt. I attest to the above note as dictated by her.
[2020-01-03 16:57] LABS: Glucose,Whole Blood 128 mg/dL (75-99)
[2020-01-03] MEDS: APIXABAN 5 MG TAB PO SCH (20:13)
[2020-01-03 20:17] LABS: Glucose,Whole Blood 185 mg/dL (75-99)
--- NOTE | 2020-01-03 20:52 | P.CONS ---
History of Present Illness - Reason for Consult Consult date: 01/03/20 Lung cancer - Chief Complaint Lung cancer - History of Present Illness Very pleasant 54-year-old female with significant history of smoking in the past was recently diagnosed with left lung mass cavitary lesion in the apex subsequently had a biopsy which showed poorly differentiated non-small cell lung cancer/adenocarcinoma. She had a PET scan done that showed left upper lobe mass with lymphadenopathy final staging was stage IIIa recommended undergoing concurrent chemotherapy with radiation followed by lobectomy. The patient underwent mediastinoscopy however the lymph nodes were negative and subsequently the stage was down staged as stage II and patient has been admitted for lobectomy which has been performed. The patient tolerated the treatment well and currently is postop doing well. After discharge patient will be followed up as outpatient for discussing options regarding chemotherapy. Review of Systems Review of systems negative except pain fatigue shortness of breath. Past Medical History Past Medical History: Cancer, COPD, Diabetes Mellitus, Fibromyalgia, Hyperlipidemia, Hypertension Additional Past Medical History / Comment(s): HX OF CERVICAL CANCER WITH HYSTERECTOMY, NEW DIAGNOSIS LUNG CANCER.,STATES SOB AT TIMES, COUGHING UP BLOOD. History of Any Multi-Drug Resistant Organisms: None Reported Past Surgical History: Hysterectomy Additional Past Surgical History / Comment(s): 12/02/19 MEDIATINOSCOPY AND LYMPH NODE BX. LASER SURGERY FOR GLAUCOMA. VAGINAL HYSTERECTOMY Past Anesthesia/Blood Transfusion Reactions: Motion Sickness, Postoperative Nausea & Vomiting (PONV) Past Psychological History: Anxiety, Bipolar, Depression Smoking Status: Former smoker Past Alcohol Use History: None Reported Additional Past Alcohol Use History / Comment(s): QUIT SMOKING OCT 2019, SMOKED 1 PPD, SMOKED FOR 40 YEARS. Past Drug Use History: None Reported - Past Family History Mother Family Medical History: Cancer, Diabetes Mellitus Additional Family Medical History / Comment(s): BREAST CANCER Father Family Medical History: Cancer Additional Family Medical History / Comment(s): LUNG CANCER Medications and Allergies Home Medications Medication Instructions Recorded Confirmed Type DULoxetine HCL [Cymbalta] 60 mg PO QAM 06/04/16 12/28/19 History Bisoprolol-Hctz 5-6.25 mg [Ziac 1 tab PO QAM 10/21/19 12/28/19 History 5-6.25 MG] amLODIPine [Norvasc] 10 mg PO QAM 10/21/19 12/28/19 History Acetaminophen Tab [Tylenol] 325 mg PO DIRECTED PRN 11/30/19 12/31/19 History metFORMIN HCL 500 mg PO BID 12/28/19 12/28/19 History Allergies Allergy/AdvReac Type Severity Reaction Status Date / Time mold Allergy Unknown Dyspnea, Verified 12/31/19 06:11 Rash, Swelling Penicillins Allergy Unknown Verified 12/31/19 06:11 Childhood Physical Exam Vitals: Vital Signs Temp Pulse Pulse Resp BP Pulse Ox 01/03/20 20:00 97.7 F 79 18 99/55 98 01/03/20 16:45 80 01/03/20 16:30 80 01/03/20 15:30 99.1 F 79 16 90/49 98 01/03/20 13:27 82 01/03/20 13:16 78 01/03/20 11:22 98.1 F 75 18 100/62 98 01/03/20 08:48 105 H 01/03/20 08:37 105 H 01/03/20 08:00 97.6 F 122 H 20 106/64 95 01/03/20 04:00 98.4 F 89 20 118/66 94 L 01/03/20 03:11 18 01/02/20 22:52 82 18 100/52 97 Intake and Output 01/03/20 01/03/20 01/03/20 06:59 14:59 22:59 Intake Total 880 287 Output Total 1060 Balance -1060 880 287 Intake: Oral 880 287 Output: Drainage 110 Left Anterior 110 Urine 950 Other: Voiding Method Toilet Toilet Weight 69.7 kg The patient appeared well nourished and normally developed. Vital signs as documented. Head exam is unremarkable. No scleral icterus or corneal arcus noted. Neck is without jugular venous distension, thyromegaly, or carotid bruits. Carotid upstrokes are brisk bilaterally. Lungs are clear to auscultation and percussion. Cardiac exam reveals the PMI to be normally sized and situated. Rhythm is regular. First and second heart sounds normal. No murmurs, rubs or gallops. Abdominal exam reveals normal bowel sounds, no masses, no organomegaly and no aortic enlargement. Extremities are nonedematous and both femoral and pedal pulses are normal. Results CBC & Chem 7: 01/03/20 06:04 01/03/20 06:04 Labs: Abnormal Lab Results - Last 24 Hours (Table) 01/03/20 01/03/20 01/03/20 Range/Units 06:04 06:04 06:15 WBC 17.4 H (3.8-10.6) k/uL RBC 3.29 L (3.80-5.40) m/uL Hgb 8.7 L (11.4-16.0) gm/dL Hct 27.1 L (34.0-46.0) % Plt Count 522 H (150-450) k/uL Neutrophils # 15.3 H (1.3-7.7) k/uL Lymphocytes # 0.9 L (1.0-4.8) k/uL Sodium 125 L (137-145) mmol/L Chloride 89 L (98-107) mmol/L Glucose 147 H (74-99) mg/dL POC Glucose (mg/dL) 179 H (75-99) mg/dL Calcium 8.3 L (8.4-10.2) mg/dL Alkaline Phosphatase 134 H (38-126) U/L Total Protein 5.6 L (6.3-8.2) g/dL Albumin 2.7 L (3.5-5.0) g/dL 01/03/20 01/03/20 01/03/20 Range/Units 11:25 16:56 20:16 WBC (3.8-10.6) k/uL RBC (3.80-5.40) m/uL Hgb (11.4-16.0) gm/dL Hct (34.0-46.0) % Plt Count (150-450) k/uL Neutrophils # (1.3-7.7) k/uL Lymphocytes # (1.0-4.8) k/uL Sodium (137-145) mmol/L Chloride (98-107) mmol/L Glucose (74-99) mg/dL POC Glucose (mg/dL) 199 H 128 H 185 H (75-99) mg/dL Calcium (8.4-10.2) mg/dL Alkaline Phosphatase (38-126) U/L Total Protein (6.3-8.2) g/dL Albumin (3.5-5.0) g/dL Microbiology - Last 24 Hours (Table) 12/31/19 11:27 Anaerobic Culture - Final Lung - Left Upper Lobe Anaerobic Gm Negative Bacilli Assessment and Plan Assessment: Impression and plan : #1. Non-small cell lung cancer: Adenocarcinoma clinically stage II: - Initially was thought to be stage III with a left cavitary mass in the apex with strong smoking history. - Mediastinoscopy showed negative lymph nodes. - Currently status post lobectomy, waiting for biopsy results, further discussion as outpatient with oncology for possible chemotherapy. Depending on the margins will need evaluation by radiation as well. - Postop imaging as outpatient. #2. Significant history of tobacco abuse. #3. History of cervical cancer. #4. History of diabetes, hypertension, hyperlipidemia. Thank you for consult. Marion Nichols M.D. Hematology oncology
[2020-01-04 06:09] LABS: Glucose,Whole Blood 189 mg/dL (75-99)
[2020-01-04] MEDS: metFORMIN 500 MG TAB PO SCH (06:20)
[2020-01-04] MEDS: KETOROLAC 30 MG/ML 1 ML VIAL IVP SCH ×2 (06:20→13:14)
[2020-01-04] MEDS: INSULIN ASPART (NovoLOG) 100 UNIT/ML VIAL SQ SCH ×2 (06:20→12:34)
[2020-01-04] MEDS ORDERED: PANTOPRAZOLE 40 MG TABLET PO SCH (07:30)
--- NOTE | 2020-01-04 07:35 | XR ---
EXAMINATION TYPE: XR chest 2V DATE OF EXAM: 01/04/2020 COMPARISON: 01/03/2020 HISTORY: 54-year-old female left upper lobectomy TECHNIQUE: PA and lateral views FINDINGS: Left heart margin obscured by adjacent pleural parenchymal opacity. No well-defined pleural edge is i dentified to indicate pneumothorax. However, a couple air-fluid levels are noted in the left hemithor ax now. IMPRESSION: Postsurgical changes left hemithorax. Interval removal of chest tubes with similar sizable air-fluid levels in the left hemithorax. 2 air fluid levels are identified on the lateral projection. On the fr ontal view, the air-fluid level reaches the upper third thoracic level.
[2020-01-04 08:54] LABS: Basophils % (A) 0 %; Eosinophils % (A) 0 %; HCT 23.7 % (34.0-46.0); Lymphocytes # (A) 0.6 k/uL (1.0-4.8); Lymphocytes % (A) 4 %; MCH 27.2 pg (25.0-35.0); MCHC 33.5 g/dL (31.0-37.0); MCV 81.2 fL (80.0-100.0); Mean Platelet Volume 7.3; Monocytes # (A) 0.6 k/uL (0-1.0); Monocytes % (A) 4 %; Neutrophils # (A) 14.1 k/uL (1.3-7.7); Neutrophils % (A) 90 %; Platelet Count 384 k/uL (150-450); RBC 2.92 m/uL (3.80-5.40); RDW 14.2 % (11.5-15.5); WBC 15.7 k/uL (3.8-10.6)
[2020-01-04] MEDS ORDERED: LEVOFLOXACIN 500 MG TAB PO SCH (09:00)
[2020-01-04 09:04] LABS: ALT 7 U/L (4-34); AST 27 U/L (14-36); African American GFR (CKD) >90 (>60 ml/min/1.73 sqM); Albumin 2.6 g/dL (3.5-5.0); Alkaline Phosphatase 132 U/L (38-126); Anion Gap 12 mmol/L; Blood Urea Nitrogen 14 mg/dL (7-17); Calcium 7.8 mg/dL (8.4-10.2); Carbon Dioxide 22 mmol/L (22-30); Chloride 91 mmol/L (98-107); Glucose 188 mg/dL (74-99); Non-African American GFR(CKD) >90 (>60 ml/min/1.73 sqM); Potassium 4.5 mmol/L (3.5-5.1); Sodium 125 mmol/L (137-145); Total Bilirubin 0.8 mg/dL (0.2-1.3); Total Protein 5.5 g/dL (6.3-8.2)
[2020-01-04] MEDS: IPRATROPIUM-ALBUTEROL 3 ML NEB IH SCH ×2 (09:06→12:40)
[2020-01-04] MEDS: SODIUM CHLORIDE 0.9% 1,000 ML IV SCH (09:25)
[2020-01-04] MEDS: AMIODARONE 200 MG TAB PO SCH (09:25)
[2020-01-04] MEDS: APIXABAN 5 MG TAB PO SCH (09:26)
[2020-01-04] MEDS: DULoxetine HCL 60 MG CAPSULE.DR PO SCH (09:26)
[2020-01-04] MEDS: BISOPROLOL 5 MG TAB PO SCH (09:34)
--- NOTE | 2020-01-04 10:24 | P.PN ---
Subjective Progress Note Date: 01/04/20 This is a pleasant 54-year-old female with history of nicotine dependence, COPD, diabetes, hypertension, hyperlipidemia, anxiety and depression with bipolar, history of cervical cancer with prior hysterectomy, fibromyalgia, patient was found to have a lung mass, underwent left robotic-assisted t horascopic upper lobectomy with mediastinal lymph node dissection and bronchoscopy. The patient was noted to go into atrial fibrillation and for this reason a cardiology consultation was requested. Patient states last night she felt her heart racing extremely fast and she was quite short of breath. According to the patient, in the past she has noticed brief episodes of similar palpitations and heart racing but has never been told to have atrial fibrillation. Her EKG showed atrial fibrillation with a rapid ventricular response. Patient was given 150 mg of IV amiodarone, and a second IV bolus of IV amiodarone 150. She is currently on IV amiodarone drip. She continues to have a chest tube in place, her chest x-ray from this morning shows some free intraperitoneal air, no evidence of a pneumothorax. Left hemithorax and post- lobectomy changes. Blood pressure this morning 92/60 with a heart rate in the 1 teens to 120 range, 96% on room air. White blood cell count this morning 21.7, hemoglobin 9.3, platelet count 435. Sodium 128, potassium 3.9, BUN 19, creatinine 0.6, magnesium 1.7. Patient is currently on amiodarone drip, Norvasc 10 mg daily, Ziac, Cymbalta, one dose of IV Lasix was given, patient is on subcutaneous heparin 5000 units every 8 hourly at this time. She sitting up in the chair at bedside, states that she feels significantly better than she did last night. Her breathing is overall stable and she denies palpitations this morning. I did have a lengthy discussion this morning with the patient regarding the importance of anticoagulation for stroke prevention. 01/04/2020 Patient seen and examined this morning, overall doing very well today, she's remaining in a normal sinus rhythm, blood pressure 112/50 with a heart rate in the 70s to 80s, 95% on room air. White blood cell count 15.7, hemoglobin 8.0, platelet count 384. Sodium 125, potassium 4.5, BUN 14, creatinine 0.4. Objective - Vital Signs Vital signs: Vital Signs Temp 98 F 01/04/20 04:00 Pulse 82 01/04/20 04:00 Resp 18 01/04/20 04:00 BP 112/55 01/04/20 04:00 Pulse Ox 95 01/04/20 04:00 Intake & Output 01/03/20 01/04/20 01/04/20 18:59 06:59 18:59 Intake Total 1117 260 120 Output Total 900 Balance 1117 260 -780 Weight 70.8 kg Intake: Oral 1117 260 120 Output: Urine 900 Other: Voiding Method Toilet # Voids 2 - Exam PHYSICAL EXAMINATION: GENERAL: This is a pleasant 54, thin female in no acute distress at the time of my examination, HEENT: Head is atraumatic, normocephalic. Pupils equal, round. Sclera anicteric. Conjunctiva are clear. Mucous membranes of the mouth are moist. Neck is supple. There is no elevated jugular venous pressure. No carotid bruit is heard. HEART EXAMINATION: Heart S1 and S2 normal CHEST EXAMINATION: Lungs are clear with diminished air entry bilaterally, patient has a left chest tube in place. ABDOMEN: Soft, nontender. Bowel sounds are heard. No organomegaly noted. EXTREMITIES: 2+ peripheral pulses with no evidence of peripheral edema and no calf tenderness noted. NEUROLOGIC patient is awake, alert and oriented 3 . . - Labs CBC & Chem 7: 01/04/20 08:24 01/04/20 08:24 Labs: Abnormal Lab Results - Last 24 Hours (Table) 01/03/20 01/03/20 01/03/20 Range/Units 11:25 16:56 20:16 WBC (3.8-10.6) k/uL RBC (3.80-5.40) m/uL Hgb (11.4-16.0) gm/dL Hct (34.0-46.0) % Neutrophils # (1.3-7.7) k/uL Lymphocytes # (1.0-4.8) k/uL Sodium (137-145) mmol/L Chloride (98-107) mmol/L Creatinine (0.52-1.04) mg/dL Glucose (74-99) mg/dL POC Glucose (mg/dL) 199 H 128 H 185 H (75-99) mg/dL Calcium (8.4-10.2) mg/dL Alkaline Phosphatase (38-126) U/L Total Protein (6.3-8.2) g/dL Albumin (3.5-5.0) g/dL 01/04/20 01/04/20 01/04/20 Range/Units 06:08 08:24 08:24 WBC 15.7 H (3.8-10.6) k/uL RBC 2.92 L (3.80-5.40) m/uL Hgb 8.0 L (11.4-16.0) gm/dL Hct 23.7 L (34.0-46.0) % Neutrophils # 14.1 H (1.3-7.7) k/uL Lymphocytes # 0.6 L (1.0-4.8) k/uL Sodium 125 L (137-145) mmol/L Chloride 91 L (98-107) mmol/L Creatinine 0.46 L (0.52-1.04) mg/dL Glucose 188 H (74-99) mg/dL POC Glucose (mg/dL) 189 H (75-99) mg/dL Calcium 7.8 L (8.4-10.2) mg/dL Alkaline Phosphatase 132 H (38-126) U/L Total Protein 5.5 L (6.3-8.2) g/dL Albumin 2.6 L (3.5-5.0) g/dL Microbiology - Last 24 Hours (Table) 12/31/19 11:27 Gram Stain - Preliminary Lung - Left Upper Lobe Tissue Culture - Preliminary Corynebacterium species 12/31/19 11:27 Anaerobic Culture - Final Lung - Left Upper Lobe Anaerobic Gm Negative Bacilli Assessment and Plan Plan: Assessment and plan #1 status post left upper lobectomy secondary to left cavitary mass diagnosed as poorly differentiated non-small cell cancer with adenocarcinoma #2 atrial fibrillation with rapid ventricular response #3 nicotine dependence #4 history of cervical cancer #5 diabetes #6 hypertension #7 hyperlipidemia #8 COPD Plan From cardiology's perspective, patient may be discharged home today. We will continue her current medications, tapering off the amiodarone as an outpatient. Follow-up appointment in the office post discharge. DNP note has been reviewed, I agree with a documented findings and plan of care. Patient was seen and examined.
--- NOTE | 2020-01-04 11:26 | P.PN ---
Subjective Progress Note Date: 01/04/20 Principal diagnosis: Non-small cell/adenocarcinoma of the left lung, post op day #4 of left upper lobectomy This is a 54-year-old female, [id number] smoking history, continues to smoke, patient was recently discovered to have a left cavitary mass in the apex. This was diagnosed as poorly differentiated non-small cell cancer consistent with adenocarcinoma. Patient underwent PET scan showed marked uptake in the left upper lobe as well as in the left upper hilum, L5 distribution. Patient was presented in the tumor Board, and she was initially felt that she may have stage IIIa carcinoma, patient was recommended to undergo induction chemotherapy followed by lobectomy and preoperative surgical staging was requested. Recently, the patient underwent thoracoscopic mediastinotomy with biopsy of the AP window and mediastinal lymph nodes, and all came back negative.. Hence patient was advised to undergo left upper lobectomy which was done today. Her postoperative course was basically uneventful, I was asked to see her on consultation. Patient is relatively asymptomatic, she has some pain from the surgical site otherwise she denies any cough wheezing shortness of breath. On 01/01/2020 patient seen in follow-up on selective care unit. This is postoperative day 1 status post robotic-assisted thorascopic left upper lobectomy with mediastinal lymph node dissection and bronchoscopy for mucous plugging at the conclusion of the case. Pathology of the left upper lobe for permanent section and frozen section of bronchial margin, lymph node stations of L8, L9, LDL 10, LV 11 and level VII is still pending at this time, patient is awake and alert, room air pulse ox is 96%, she is afebrile, hemodynamically patient stable, she is working on her incentive spirometer, she is having soreness and discomfort at the incision site, she is achieving 500 mL on the incentive spirometer, today's chest x-ray has been reviewed showing small left pleural effusion and left hemithorax with mild volume loss, no pneumothorax. Left-sided chest tube has been placed to waterseal, and there has been 362 mL of thin serosanguineous output in the last 24 hours from the left-sided chest tube. Today's labs have been reviewed, white blood cell count is 13.9, hemoglobin is 9.2, sodium is 1:30, potassium is 4.0, chloride is 95, CO2 is 28, BUN 13 creatinine 0.5 Reevaluated today on 3/21/20, patient is on the cardiac floor, doing well, however last night she developed an episode of atrial fibrillation with RVR. Patient is presently on amiodarone, not in any anticoagulation at this point yet. Patient responded well to amiodarone, and she is basically now in sinus rhythm. Asymptomatic, doing quite well, compliant with her incentive spirometer. No cough no wheezing, no fever no chills, however her white count went up to 21.7. Hemoglobin is 9.3. Sputum is showing multiple microorganisms, possibly normal oral rachelle. However considering her significant elevation in WB C count, recommended antibiotics in the form of Levaquin. Chest x-ray is showing slight air-fluid level in the left midlung area. Chest tube remains in place The patient is seen today 01/03/2020 in follow-up on the selective care unit. She is currently sitting up in a chair at the bedside. Awake and alert in no acute distress. She denies any worsening shortness of breath, cough or congestion. She is maintaining O2 saturations in the 90s on room air. She has had paroxysmal atrial fibrillation with RVR. She is currently in sinus rhythm. She received amiodarone bolus times one and currently on oral amiodarone. Chest tube was removed this morning. Chest x-ray shows increasing air-fluid level in the left lung. White count 17.4. Hemoglobin 8.7. Sodium 125. Creatinine 0.54. Remains on Levaquin and bronchodilators. Needs increased encouragement regarding these the incentive spirometer. Pulling approximate 500 ML's. The patient is seen today 01/04/2020 in follow-up on the selective care unit. She is currently awake and alert in no acute distress. She is maintaining good O2 saturations in the 90s on room air. Chest x-ray reveals continued air-fluid levels in the left hemithorax. 2 air-fluid levels are identified on the lateral projection. She's afebrile. Hemodynamically stable. White count 15.7. Hemoglobin 8.0. Sodium 125. Creatinine 0.46. Culture of the left upper lobe was positive for anaerobic gram-negative bacilli. She is currently on Levaquin along with bronchodilators. Anticoagulated with Eliquis. Continued on amiodarone. Objective - Vital Signs Vital signs: Vital Signs Temp 97.7 F 01/04/20 08:00 Pulse 76 01/04/20 08:00 Resp 18 01/04/20 08:00 BP 97/55 01/04/20 08:00 Pulse Ox 91 L 01/04/20 08:00 Intake & Output 01/03/20 01/04/20 01/04/20 18:59 06:59 18:59 Intake Total 1117 260 120 Output Total 900 Balance 1117 260 -780 Weight 70.8 kg Intake: Oral 1117 260 120 Output: Urine 900 Other: Voiding Method Toilet # Voids 2 - Exam GENERAL EXAM: Alert, active, very pleasant 54-year-old female patient, on room air, comfortable in no apparent distress. HEAD: Normocephalic. EYES: Normal reaction of pupils, equal size. NOSE: Clear with pink turbinates. THROAT: No erythema or exudates. NECK: No masses, no JVD. CHEST: No chest wall deformity. LUNGS: Equal air entry with crackles in the left lung base, diminished. CVS: S1 and S2 normal with no audible murmur, regular rhythm. ABDOMEN: No hepatosplenomegaly, normal bowel sounds, no guarding or rigidity. SPINE: No scoliosis or deformity SKIN: No rashes CENTRAL NERVOUS SYSTEM: No focal deficits, tone is normal in all 4 extremities. EXTREMITIES: There is no peripheral edema. No clubbing, no cyanosis. Peripheral pulses are intact. - Labs CBC & Chem 7: 01/04/20 08:24 01/04/20 08:24 Labs: Abnormal Lab Results - Last 24 Hours (Table) 01/03/20 01/03/20 01/03/20 Range/Units 11:25 16:56 20:16 WBC (3.8-10.6) k/uL RBC (3.80-5.40) m/uL Hgb (11.4-16.0) gm/dL Hct (34.0-46.0) % Neutrophils # (1.3-7.7) k/uL Lymphocytes # (1.0-4.8) k/uL Sodium (137-145) mmol/L Chloride (98-107) mmol/L Creatinine (0.52-1.04) mg/dL Glucose (74-99) mg/dL POC Glucose (mg/dL) 199 H 128 H 185 H (75-99) mg/dL Calcium (8.4-10.2) mg/dL Alkaline Phosphatase (38-126) U/L Total Protein (6.3-8.2) g/dL Albumin (3.5-5.0) g/dL 01/04/20 01/04/20 01/04/20 Range/Units 06:08 08:24 08:24 WBC 15.7 H (3.8-10.6) k/uL RBC 2.92 L (3.80-5.40) m/uL Hgb 8.0 L (11.4-16.0) gm/dL Hct 23.7 L (34.0-46.0) % Neutrophils # 14.1 H (1.3-7.7) k/uL Lymphocytes # 0.6 L (1.0-4.8) k/uL Sodium 125 L (137-145) mmol/L Chloride 91 L (98-107) mmol/L Creatinine 0.46 L (0.52-1.04) mg/dL Glucose 188 H (74-99) mg/dL POC Glucose (mg/dL) 189 H (75-99) mg/dL Calcium 7.8 L (8.4-10.2) mg/dL Alkaline Phosphatase 132 H (38-126) U/L Total Protein 5.5 L (6.3-8.2) g/dL Albumin 2.6 L (3.5-5.0) g/dL Microbiology - Last 24 Hours (Table) 12/31/19 11:27 Gram Stain - Preliminary Lung - Left Upper Lobe Tissue Culture - Preliminary Corynebacterium species 12/31/19 11:27 Anaerobic Culture - Final Lung - Left Upper Lobe Anaerobic Gm Negative Bacilli Assessment and Plan Assessment: Status post left upper lobectomy, postoperative day #4, cultures positive for anaerobic gram-negative bacilli Left upper lobe cavitary mass/lung adenocarcinoma, biopsy-proven. Tobacco dependence syndrome/chronic smoker. History of cervical cancer. Type 2 diabetes Hypertension Hyperlipidemia New-onset atrial fibrillation with RVR requiring amiodarone Hyponatremia Plan: The patient was seen and evaluated by Dr. Fernandez Chest x-ray reviewed Encourage increased use of the incentive spirometer and cough and deep breathing exercises Continue Levaquin Continue bronchodilators Home once cleared by cardiothoracic. Close follow-up in the office. I, the cosigning physician, performed a history & physical examination of the patient. Lungs sounds with crackles in the left lung base, diminished. Mainta ining good O2 saturations in the 90s on room air. I discussed the assessment and plan of care with my nurse practitioner, Jazmín Arndt. I attest to the above note as dictated by her.
[2020-01-04 11:46] LABS: Glucose,Whole Blood 139 mg/dL (75-99)
--- NOTE | 2020-01-04 11:57 | P.DS ---
Providers Date of admission: 01/01/20 13:24 Expected date of discharge: 01/04/20 Attending physician: Teddy Wilkins Consults: 12/31/19 13:56 Consult Physician Routine Consulting Provider: Arpit Luque Consult Reason/Comments: Pulmonary management Do you want consulting provider notified?: Yes Consult Physician Routine Consulting Provider: Nathan Leroy Reason/Comments: Medical management Do you want consulting provider notified?: Yes 01/01/20 19:10 Consult Physician Routine Consulting Provider: Alli Beebe Consult Reason/Comments: New onset Afib Do you want consulting provider notified?: Yes Primary care physician: [facility] Course: FINAL DIAGNOSIS: 1. Lung cancer left upper lobe, status post left robotic-assisted thoracoscopic upper lobectomy with mediastinal lymph node dissection and bronchoscopy 2. Hypertension 3. Hyperlipidemia 4. Chronic tobacco abuse 5. History of cervical cancer, status post hysterectomy 6. Type 2 diabetes mellitus 7. Anxiety 8. Bipolar disorder 9. Postoperative paroxysmal atrial fibrillation, an unexpected outcome PRINCIPAL PROCEDURE: 1. Left robotic-assisted thoracoscopic upper lobectomy with mediastinal lymph node dissection and bronchoscopy HISTORY OF PRESENT ILLNESS: This a 54-year-old female patient who is followed by Dr. Nathan Leroy on an outpatient basis. She has a past medical history significant for hypertension, hyperlipidemia, chronic tobacco abuse, history of cervical cancer, status post hysterectomy, type 2 diabetes mellitus, anxiety and bipolar disorder. The patient was recently found to have a large cavitary mass to the apex of her left upper lobe. A left upper lobe lung biopsy was completed which showed poorly differentiated non-small cell carcinoma consistent with adenocarcinoma. For further evaluation and a PET scan was completed which showed marked uptake in the left upper lobe as well as in the left upper lobe hilum and in the adjacent mediastinum, L5 distribution. Her case was brought before the tumor board, and she was initially felt that she may have stage IIIA carcinoma and was recommended to undergo induction chemotherapy followed by lobectomy and preoperative surgical staging was requested. On 12/02/2019 the patient underwent a left anterior mediastinotomy (Winfield procedure ) with lymph node biopsy. Subsequently the pathology from the Winfield procedure came back negative. The patient was subsequently advised to undergo a robotic- assisted left upper lobectomy, the risks and benefits of the surgery were discussed with the patient by Dr. Teddy Wilkins and the patient wished to proceed with the left upper lobectomy. HOSPITAL COURSE: The patient was admitted to the hospital and after obtaining consent was taken to the preoperative area, prepared in the usual fashion and subsequently taken to the operating room where Dr. Teddy Wilkins performed a robotic-assisted thoracoscopic left upper lobectomy with mediastinal lymph node dissection and bronchoscopy. Upon completion of the surgery the patient was extubated and taken to the recovery room where she was recovered and monitored hemodynamically. She was eventually admitted to the third floor cardiac stepdown unit for further monitoring. There was no airleak to her chest tube and she was placed to water seal. She continued to recover uneventfully and her left pleural chest tube was discontinued on postoperative day #3. A repeat chest x-ray was stable. Her oxygen was titrated down, she was tolerating an oral diet, her pain was well-controlled and she was ready to be discharged home on postoperative day #4. She has received written and verbal instructions regarding his medications, activity restrictions, signs and symptoms requiring physician notification and her follow-up appointments. COMPLICATIONS: Postoperative recovery was complicated by some paroxysmal atrial fibrillation which was treated accordingly. CONSULTATIONS: 1. Dr. Arredondo for pulmonary management. 2. Dr. Leroy for medical and diabetes management. 3. Dr. VC Beebe for atrial fibrillation management. DISCHARGE INSTRUCTIONS: 1. No driving for 2 weeks, or until physician gives their ok. 2. No lifting, pushing, or pulling more than 10 pounds for 2 weeks. The physician will advise of any restriction changes. 3. Continue pain control per as needed orders. Alternate acetaminophen (Tylenol) and ibuprofen (Motrin/Advil) for pain. 4. Continue with incentive spirometry and splinting until otherwise directed by the physician. 5. Leave chest tube dressing for 48 hours. After that, remove all dressings and shower daily. 6. Routine incision care. No powders, lotions, ointments on incisions. 7. Please call surgeon/BAGGAGE CLERK for temp greater than 101 F or purulent drainage from incisions. 8. Smoking cessation counseling and program information provided. For any questions or concerns please call nurse practitioners Tiffany at [phone] or Navid at [phone] Medication instructions: Amiodarone 400 mg by mouth twice a day 5 days, then taper to amiodarone 200 mg by mouth twice a day 7 days, then taper to amiodarone 200 mg by mouth daily 7 days then discontinue. Plan - Discharge Summary Discharge Rx Participant: Yes New Discharge Prescriptions: New Amiodarone [Cordarone] 400 mg PO BID #41 tab Apixaban [Eliquis] 5 mg PO BID #60 tab Levofloxacin [Levaquin] 500 mg PO DAILY 7 Days tab Pantoprazole [Protonix] 40 mg PO AC-BRKFST #30 tablet. Bisoprolol [Zebeta] 10 mg PO DAILY #30 tab Continue DULoxetine HCL [Cymbalta] 60 mg PO QAM Acetaminophen Tab [Tylenol] 325 mg PO DIRECTED PRN PRN Reason: Pain metFORMIN HCL 500 mg PO BID Discontinued Bisoprolol-Hctz 5-6.25 mg [Ziac 5-6.25 MG] 1 tab PO QAM amLODIPine [Norvasc] 10 mg PO QAM Discharge Medication List DULoxetine HCL [Cymbalta] 60 mg PO QAM 06/04/16 [History] Acetaminophen Tab [Tylenol] 325 mg PO DIRECTED PRN 11/30/19 [History] metFORMIN HCL 500 mg PO BID 12/28/19 [History] Amiodarone [Cordarone] 400 mg PO BID #41 tab 01/04/20 [Rx] Apixaban [Eliquis] 5 mg PO BID #60 tab 01/04/20 [Rx] Bisoprolol [Zebeta] 10 mg PO DAILY #30 tab 01/04/20 [Rx] Levofloxacin [Levaquin] 500 mg PO DAILY 7 Days tab 01/04/20 [Rx] Pantoprazole [Protonix] 40 mg PO AC-BRKFST #30 tablet. 01/04/20 [Rx] Follow up Appointment(s)/Referral(s): Teddy Wilkins MD [STAFF PHYSICIAN] - 01/07/20 1:00 pm () Nathan Leroy MD [Primary Care Provider] - 01/11/20 2:00 pm (Saturday) Arpit Luque MD [STAFF PHYSICIAN] - 01/21/20 1:30 pm () Alli Beebe MD [STAFF PHYSICIAN] - 01/11/20 11:00 am (Saturday) Ambulatory/Diagnostic Orders: XR chest 2V [RAD.AMB] Time Frame: 01/07/20, Facility: [facility], Location: [facility] Patient Instructions/Handouts: Lung Lobectomy (DC) Activity/Diet/Wound Care/Special Instructions: DISCHARGE INSTRUCTIONS: 1. No driving for 2 weeks, or until physician gives their ok. 2. No lifting, pushing, or pulling more than 10 pounds for 2 weeks. The physi dima will advise of any restriction changes. 3. Continue pain control per as needed orders. Alternate acetaminophen (Tylenol) and ibuprofen (Motrin/Advil) for pain. 4. Continue with incentive spirometry and splinting until otherwise directed by the physician. 5. Leave chest tube dressing for 48 hours. After that, remove all dressings and shower daily. 6. Routine incision care. No powders, lotions, ointments on incisions. 7. Please call surgeon/BAGGAGE CLERK for temp greater than 101 F or purulent drainage from incisions. 8. Smoking cessation counseling and program information provided. For any questions or concerns please call nurse practitioners Tiffany at [phone] or Navid at [phone] Discharge Disposition: HOME SELF-CARE
[2020-01-04 12:01] VITALS: BP 105/57; RESP 16; TEMP 97.5
[2020-01-04 12:42] VITALS: PULSE 76
== END 2020-01-04 13:36 | disposition home or self-care (01) | DRG 164 ==
LOC: OR 05:53 → 3SCARD 12:29 → OR 01-01 00:30 → OBSVTOIN 01-01 13:24
PROVIDERS: ADMIT Thoracic Surgery (Cardiothoracic Vascular Surgery); ATTEND Thoracic Surgery (Cardiothoracic Vascular Surgery)
DX: C34.12 Malignant neoplasm of upper lobe, left bronchus or lung (principal); F33.1 Major depressive disorder, recurrent, moderate; I97.191 Other postprocedural cardiac functional disturbances following other surgery; E87.1 Hypo-osmolality and hyponatremia; D62 Acute posthemorrhagic anemia; J44.9 Chronic obstructive pulmonary disease, unspecified; I48.0 Paroxysmal atrial fibrillation; E11.39 Type 2 diabetes mellitus with other diabetic ophthalmic complication; H40.9 Unspecified glaucoma; H42 Glaucoma in diseases classified elsewhere; I10 Essential (primary) hypertension; E78.5 Hyperlipidemia, unspecified; M79.7 Fibromyalgia; F17.211 Nicotine dependence, cigarettes, in remission; Z79.84 Long term (current) use of oral hypoglycemic drugs; Z79.899 Other long term (current) drug therapy; Z90.710 Acquired absence of both cervix and uterus; Z85.41 Personal history of malignant neoplasm of cervix uteri; Z88.0 Allergy status to penicillin; Z91.048 Other nonmedicinal substance allergy status; Y83.6 Removal of other organ (partial) (total) as the cause of abnormal reaction of the patient, or of later complication, without mention of misadventure at the time of the procedure; Y92.230 Patient room in hospital as the place of occurrence of the external cause; Z83.3 Family history of diabetes mellitus; Z80.3 Family history of malignant neoplasm of breast; Z80.1 Family history of malignant neoplasm of trachea, bronchus and lung
CPT/HCPCS: 71045; 71046; 80048; 80053; 83735; 84132; 84443; 85025; 85027; 86850; 86900; 86901; 87070; 87075; 87205; 88305; 88309; 88313; 88331; 88341; 88342; 93306; 94640

== ENCOUNTER → 2020-01-07 | Outpatient (CLI) | payer OTHER ==
--- NOTE | 2020-01-07 10:43 | XR ---
EXAMINATION TYPE: XR chest 2V DATE OF EXAM: 01/07/2020 COMPARISON: 01/04/2020 INDICATION: Post left upper lobectomy TECHNIQUE: Frontal and lateral views of the chest are obtained. FINDINGS: The heart size is indistinct. The pulmonary vasculature is normal. There is an air-fluid level within the left upper lung. . Previous air-fluid level on the lateral vi ew is less well visualized in the posterior left lower lobe. No mass effect is evident. Some mild inf iltrate may be within the lower portion right upper lobe just above the minor fissure. Atelectasis an d pneumonia could be considered. IMPRESSION: 1. Essentially stable post left upper lobectomy changes. Aeration may be slightly diminished over the interval. 2. Mild infiltrate within the lower portion right upper lobe. Correlate for atelectasis and developin g pneumonia.
== END | disposition home or self-care (01) ==
LOC: RADXRMAIN 10:24
PROVIDERS: ATTEND Thoracic Surgery (Cardiothoracic Vascular Surgery)
DX: R91.8 Other nonspecific abnormal finding of lung field (principal)
CPT/HCPCS: 71046

== ENCOUNTER 2020-01-29 04:33 | Inpatient (IN) | payer OTHER ==
[2020-01-29] MEDS ORDERED: MORPHINE SULFATE 4 MG/ML SYRINGE IV STA (05:03)
[2020-01-29] MEDS ORDERED: SODIUM CHLORIDE 0.9% 1,000 ML IV STA (05:03)
--- NOTE | 2020-01-29 05:10 | ED ---
Recheck HPI - General Chief Complaint: Skin/Abscess/Foreign Body Stated Complaint: Post-surgical infection Time Seen by Provider: 01/29/20 04:43 Source: patient, RN notes reviewed, old records reviewed Mode of arrival: EMS Limitations: no limitations - History of Present Illness Initial Comments: This is a 55-year-old female DF for evaluation she is postop lobectomy left- sided woke up today with significant draining out of her left sided surgical site, saturated. Patient denies any change in shortness of breath or fevers. She has had pain in that left side of her chest. Patient currently states her pain is controlled with no shortness of breath no cough no fevers MD Complaint: wound re-check -: hour(s) Initial Visit For: abscess Returns Today for: wound recheck Symptoms Since Prior Visit: worsening swelling, worsening discharge Associated Symptoms: none - Related Data Home Medications Medication Instructions Recorded Confirmed DULoxetine HCL [Cymbalta] 60 mg PO DAILY 06/04/16 01/29/20 Acetaminophen Tab [Tylenol] 325 mg PO Q6H PRN 11/30/19 01/29/20 metFORMIN HCL 500 mg PO BID 12/28/19 01/29/20 Albuterol Inhaler [Ventolin Hfa 2 puff INHALATION RT-QID PRN 01/29/20 01/29/20 Inhaler] Amiodarone [Cordarone] 200 mg PO DAILY 01/29/20 01/29/20 Apixaban [Eliquis] 5 mg PO BID 01/29/20 01/29/20 Bisoprolol Fumarate [Zebeta] 10 mg PO DAILY 01/29/20 01/29/20 Cephalexin [Keflex] 500 mg PO QID 01/29/20 01/29/20 Pantoprazole Sodium 40 mg PO AC-BRKFST 01/29/20 01/29/20 Previous Rx's Medication Instructions Recorded Magnesium Oxide [Mag-Ox] 400 mg PO BID #0 tab 01/29/20 Allergies Allergy/AdvReac Type Severity Reaction Status Date / Time mold Allergy Unknown Dyspnea, Verified 01/29/20 09:45 Rash, Swelling Penicillins Allergy Unknown Verified 01/29/20 09:45 Childhood Review of Systems ROS Statement: Those systems with pertinent positive or pertinent negative responses have been documented in the HPI. ROS Other: All systems not noted in ROS Statement are negative. Past Medical History Past Medical History: Cancer, COPD, Diabetes Mellitus, Fibromyalgia, Hyperlipidemia, Hypertension Additional Past Medical History / Comment(s): HX OF CERVICAL CANCER WITH HYSTERECTOMY, NEW DIAGNOSIS LUNG CANCER., STATES SOB AT TIMES, COUGHING UP BLOOD. History of Any Multi-Drug Resistant Organisms: None Reported Past Surgical History: Hysterectomy Additional Past Surgical History / Comment(s): VAGINAL HYSTERECTOMY, upper left lobectomy Past Anesthesia/Blood Transfusion Reactions: No Reported Reaction, Motion Sickness Past Psychological History: Anxiety, Bipolar, Depression Smoking Status: Former smoker Past Alcohol Use History: None Reported Past Drug Use History: None Reported - Past Family History Mother Family Medical History: Cancer, Diabetes Mellitus Additional Family Medical History / Comment(s): BREAST CANCER Father Family Medical History: Cancer Additional Family Medical History / Comment(s): LUNG CANCER General Exam Limitations: no limitations General appearance: alert, in no apparent distress Head exam: Present: atraumatic, normocephalic, normal inspection Eye exam: Present: normal appearance, PERRL, EOMI. Absent: scleral icterus, conjunctival injection, periorbital swelling ENT exam: Present: normal exam, mucous membranes moist Neck exam: Present: normal inspection. Absent: tenderness, meningismus, lymphadenopathy Respiratory exam: Present: normal lung sounds bilaterally. Absent: respiratory distress, wheezes, rales, rhonchi, stridor Cardiovascular Exam: Present: regular rate, normal rhythm, normal heart sounds. Absent: systolic murmur, diastolic murmur, rubs, gallop, clicks GI/Abdominal exam: Present: soft, normal bowel sounds. Absent: distended, tenderness, guarding, rebound, rigid Extremities exam: Present: normal inspection, full ROM, normal capillary refill. Absent: tenderness, pedal edema, joint swelling, calf tenderness Back exam: Present: normal inspection Neurological exam: Present: alert, oriented X3, CN II-XII intact Psychiatric exam: Present: normal affect, normal mood Skin exam: Present: warm, dry, intact, normal color. Absent: rash Course Vital Signs 01/29/20 01/29/20 01/29/20 04:38 04:48 06:50 Temperature 97.3 F L 98.4 F Pulse Rate 68 66 Respiratory 16 14 Rate Blood Pressure 116/75 134/53 O2 Sat by Pulse 99 97 Oximetry - Reevaluation(s) Reevaluation #1: Medical record is reviewed Patient remains in no distress fracture pain control Spoke patient regarding findings, questions are answered Medical Decision Making - Medical Decision Making 55 female DF for evaluation of left-sided possible surgical site infection versus draining injury or thoracic pleural effusion. Patient be admitted for pain control repeat evaluation by surgery as well as pulmonology - Lab Data Result diagrams: 01/31/20 11:15 01/31/20 10:05 Lab Results 01/29/20 01/29/20 01/29/20 Range/Units 05:16 05:16 05:16 WBC 12.0 H (3.8-10.6) k/uL RBC 3.44 L (3.80-5.40) m/uL Hgb 8.3 L (11.4-16.0) gm/dL Hct 26.4 L (34.0-46.0) % MCV 76.8 L (80.0-100.0) fL MCH 24.0 L (25.0-35.0) pg MCHC 31.3 (31.0-37.0) g/dL RDW 15.2 (11.5-15.5) % Plt Count 973 H D (150-450) k/uL Neutrophils % (Manual) 59 % Band Neutrophils % 24 % Lymphocytes % (Manual) 11 % Monocytes % (Manual) 6 % Eosinophils % (Manual) 1 % Neutrophils # (Manual) 9.90 H (1.3-7.7) k/uL Lymphocytes # (Manual) 1.32 (1.0-4.8) k/uL Monocytes # (Manual) 0.72 (0-1.0) k/uL Eosinophils # (Manual) 0.12 (0-0.7) k/uL Nucleated RBCs 0 (0-0) /100 WBC Manual Slide Review Performed Polychromasia Present Hypochromasia Moderate Poikilocytosis Slight Anisocytosis (manual) Present Microcytosis Slight PT (9.0-12.0) sec INR (<1.2) APTT (22.0-30.0) sec Sodium 131 L (137-145) mmol/L Potassium 3.1 L (3.5-5.1) mmol/L Chloride 88 L (98-107) mmol/L Carbon Dioxide 34 H (22-30) mmol/L Anion Gap 9 mmol/L BUN 8 (7-17) mg/dL Creatinine 0.36 L (0.52-1.04) mg/dL Est GFR (CKD-EPI)AfAm >90 (>60 ml/min/1.73 sqM) Est GFR (CKD-EPI)NonAf >90 (>60 ml/min/1.73 sqM) Glucose 204 H (74-99) mg/dL POC Glucose (mg/dL) (75-99) mg/dL POC Glu Photovoltaic Technician ID Calcium 8.0 L (8.4-10.2) mg/dL Phosphorus 4.0 (2.5-4.5) mg/dL Magnesium 1.5 L (1.6-2.3) mg/dL Total Bilirubin 0.4 (0.2-1.3) mg/dL AST 14 (14-36) U/L ALT 8 (4-34) U/L Alkaline Phosphatase 134 H (38-126) U/L Creatine Kinase <20 L (30-135) U/L CK-MB (CK-2) <0.2 (0.0-2.4) ng/mL Troponin I <0.012 (0.000-0.034) ng/mL NT-Pro-B Natriuret Pep pg/mL Total Protein 6.0 L (6.3-8.2) g/dL Albumin 2.6 L (3.5-5.0) g/dL Urine Color Urine Appearance (Clear) Urine pH (5.0-8.0) Ur Specific [place] (1.001-1.035) Urine Protein (Negative) Urine Glucose (UA) (Negative) Urine Ketones (Negative) Urine Blood (Negative) Urine Nitrite (Negative) Urine Bilirubin (Negative) Urine Urobilinogen (<2.0) mg/dL Ur Leukocyte Esterase (Negative) Urine Osmolality (50-1400) mosm/kg Ur Random Sodium mmol/L Coronavirus (PCR) (Not Detectd) 01/29/20 01/29/20 01/29/20 Range/Units 05:16 05:45 06:33 WBC (3.8-10.6) k/uL RBC (3.80-5.40) m/uL Hgb (11.4-16.0) gm/dL Hct (34.0-46.0) % MCV (80.0-100.0) fL MCH (25.0-35.0) pg MCHC (31.0-37.0) g/dL RDW (11.5-15.5) % Plt Count (150-450) k/uL Neutrophils % (Manual) % Band Neutrophils % % Lymphocytes % (Manual) % Monocytes % (Manual) % Eosinophils % (Manual) % Neutrophils # (Manual) (1.3-7.7) k/uL Lymphocytes # (Manual) (1.0-4.8) k/uL Monocytes # (Manual) (0-1.0) k/uL Eosinophils # (Manual) (0-0.7) k/uL Nucleated RBCs (0-0) /100 WBC Manual Slide Review Polychromasia Hypochromasia Poikilocytosis Anisocytosis (manual) Microcytosis PT 12.7 H (9.0-12.0) sec INR 1.3 H (<1.2) APTT 26.7 (22.0-30.0) sec Sodium (137-145) mmol/L Potassium (3.5-5.1) mmol/L Chloride (98-107) mmol/L Carbon Dioxide (22-30) mmol/L Anion Gap mmol/L BUN (7-17) mg/dL Creatinine (0.52-1.04) mg/dL Est GFR (CKD-EPI)AfAm (>60 ml/min/1.73 sqM) Est GFR (CKD-EPI)NonAf (>60 ml/min/1.73 sqM) Glucose (74-99) mg/dL POC Glucose (mg/dL) (75-99) mg/dL POC Glu Photovoltaic Technician ID Calcium (8.4-10.2) mg/dL Phosphorus (2.5-4.5) mg/dL Magnesium (1.6-2.3) mg/dL Total Bilirubin (0.2-1.3) mg/dL AST (14-36) U/L ALT (4-34) U/L Alkaline Phosphatase (38-126) U/L Creatine Kinase (30-135) U/L CK-MB (CK-2) (0.0-2.4) ng/mL Troponin I (0.000-0.034) ng/mL NT-Pro-B Natriuret Pep 1430 pg/mL Total Protein (6.3-8.2) g/dL Albumin (3.5-5.0) g/dL Urine Color Light Yellow Urine Appearance Clear (Clear) Urine pH 6.5 (5.0-8.0) Ur Specific [place] 1.005 (1.001-1.035) Urine Protein Negative (Negative) Urine Glucose (UA) Negative (Negative) Urine Ketones Negative (Negative) Urine Blood Negative (Negative) Urine Nitrite Negative (Negative) Urine Bilirubin Negative (Negative) Urine Urobilinogen <2.0 (<2.0) mg/dL Ur Leukocyte Esterase Negative (Negative) Urine Osmolality (50-1400) mosm/kg Ur Random Sodium mmol/L Coronavirus (PCR) (Not Detectd) 01/29/20 01/29/20 01/29/20 Range/Units 12:24 14:29 16:44 WBC (3.8-10.6) k/uL RBC (3.80-5.40) m/uL Hgb (11.4-16.0) gm/dL Hct (34.0-46.0) % MCV (80.0-100.0) fL MCH (25.0-35.0) pg MCHC (31.0-37.0) g/dL RDW (11.5-15.5) % Plt Count (150-450) k/uL Neutrophils % (Manual) % Band Neutrophils % % Lymphocytes % (Manual) % Monocytes % (Manual) % Eosinophils % (Manual) % Neutrophils # (Manual) (1.3-7.7) k/uL Lymphocytes # (Manual) (1.0-4.8) k/uL Monocytes # (Manual) (0-1.0) k/uL Eosinophils # (Manual) (0-0.7) k/uL Nucleated RBCs (0-0) /100 WBC Manual Slide Review Polychromasia Hypochromasia Poikilocytosis Anisocytosis (manual) Microcytosis PT (9.0-12.0) sec INR (<1.2) APTT (22.0-30.0) sec Sodium (137-145) mmol/L Potassium 3.6 (3.5-5.1) mmol/L Chloride (98-107) mmol/L Carbon Dioxide (22-30) mmol/L Anion Gap mmol/L BUN (7-17) mg/dL Creatinine (0.52-1.04) mg/dL Est GFR (CKD-EPI)AfAm (>60 ml/min/1.73 sqM) Est GFR (CKD-EPI)NonAf (>60 ml/min/1.73 sqM) Glucose (74-99) mg/dL POC Glucose (mg/dL) 227 H 192 H (75-99) mg/dL POC Glu Photovoltaic Technician ID Bolday, Mavis Bolday, Mavis Calcium (8.4-10.2) mg/dL Phosphorus (2.5-4.5) mg/dL Magnesium 1.5 L (1.6-2.3) mg/dL Total Bilirubin (0.2-1.3) mg/dL AST (14-36) U/L ALT (4-34) U/L Alkaline Phosphatase (38-126) U/L Creatine Kinase (30-135) U/L CK-MB (CK-2) (0.0-2.4) ng/mL Troponin I (0.000-0.034) ng/mL NT-Pro-B Natriuret Pep pg/mL Total Protein (6.3-8.2) g/dL Albumin (3.5-5.0) g/dL Urine Color Urine Appearance (Clear) Urine pH (5.0-8.0) Ur Specific [place] (1.001-1.035) Urine Protein (Negative) Urine Glucose (UA) (Negative) Urine Ketones (Negative) Urine Blood (Negative) Urine Nitrite (Negative) Urine Bilirubin (Negative) Urine Urobilinogen (<2.0) mg/dL Ur Leukocyte Esterase (Negative) Urine Osmolality (50-1400) mosm/kg Ur Random Sodium mmol/L Coronavirus (PCR) (Not Detectd) 01/29/20 01/30/20 01/30/20 Range/Units 20:21 00:59 06:46 WBC (3.8-10.6) k/uL RBC (3.80-5.40) m/uL Hgb (11.4-16.0) gm/dL Hct (34.0-46.0) % MCV (80.0-100.0) fL MCH (25.0-35.0) pg MCHC (31.0-37.0) g/dL RDW (11.5-15.5) % Plt Count (150-450) k/uL Neutrophils % (Manual) % Band Neutrophils % % Lymphocytes % (Manual) % Monocytes % (Manual) % Eosinophils % (Manual) % Neutrophils # (Manual) (1.3-7.7) k/uL Lymphocytes # (Manual) (1.0-4.8) k/uL Monocytes # (Manual) (0-1.0) k/uL Eosinophils # (Manual) (0-0.7) k/uL Nucleated RBCs (0-0) /100 WBC Manual Slide Review Polychromasia Hypochromasia Poikilocytosis Anisocytosis (manual) Microcytosis PT (9.0-12.0) sec INR (<1.2) APTT (22.0-30.0) sec Sodium (137-145) mmol/L Potassium 2.8 L (3.5-5.1) mmol/L Chloride (98-107) mmol/L Carbon Dioxide (22-30) mmol/L Anion Gap mmol/L BUN (7-17) mg/dL Creatinine (0.52-1.04) mg/dL Est GFR (CKD-EPI)AfAm (>60 ml/min/1.73 sqM) Est GFR (CKD-EPI)NonAf (>60 ml/min/1.73 sqM) Glucose (74-99) mg/dL POC Glucose (mg/dL) 185 H 160 H (75-99) mg/dL POC Glu Photovoltaic Technician César Guillory Kalib Calcium (8.4-10.2) mg/dL Phosphorus (2.5-4.5) mg/dL Magnesium 2.1 (1.6-2.3) mg/dL Total Bilirubin (0.2-1.3) mg/dL AST (14-36) U/L ALT (4-34) U/L Alkaline Phosphatase (38-126) U/L Creatine Kinase (30-135) U/L CK-MB (CK-2) (0.0-2.4) ng/mL Troponin I (0.000-0.034) ng/mL NT-Pro-B Natriuret Pep pg/mL Total Protein (6.3-8.2) g/dL Albumin (3.5-5.0) g/dL Urine Color Urine Appearance (Clear) Urine pH (5.0-8.0) Ur Specific [place] (1.001-1.035) Urine Protein (Negative) Urine Glucose (UA) (Negative) Urine Ketones (Negative) Urine Blood (Negative) Urine Nitrite (Negative) Urine Bilirubin (Negative) Urine Urobilinogen (<2.0) mg/dL Ur Leukocyte Esterase (Negative) Urine Osmolality (50-1400) mosm/kg Ur Random Sodium mmol/L Coronavirus (PCR) (Not Detectd) 01/30/20 01/30/20 01/30/20 Range/Units 10:19 10:19 11:39 WBC (3.8-10.6) k/uL RBC (3.80-5.40) m/uL Hgb (11.4-16.0) gm/dL Hct (34.0-46.0) % MCV (80.0-100.0) fL MCH (25.0-35.0) pg MCHC (31.0-37.0) g/dL RDW (11.5-15.5) % Plt Count (150-450) k/uL Neutrophils % (Manual) % Band Neutrophils % % Lymphocytes % (Manual) % Monocytes % (Manual) % Eosinophils % (Manual) % Neutrophils # (Manual) (1.3-7.7) k/uL Lymphocytes # (Manual) (1.0-4.8) k/uL Monocytes # (Manual) (0-1.0) k/uL Eosinophils # (Manual) (0-0.7) k/uL Nucleated RBCs (0-0) /100 WBC Manual Slide Review Polychromasia Hypochromasia Poikilocytosis Anisocytosis (manual) Microcytosis PT (9.0-12.0) sec INR (<1.2) APTT (22.0-30.0) sec Sodium (137-145) mmol/L Potassium 3.2 L (3.5-5.1) mmol/L Chloride (98-107) mmol/L Carbon Dioxide (22-30) mmol/L Anion Gap mmol/L BUN (7-17) mg/dL Creatinine (0.52-1.04) mg/dL Est GFR (CKD-EPI)AfAm (>60 ml/min/1.73 sqM) Est GFR (CKD-EPI)NonAf (>60 ml/min/1.73 sqM) Glucose (74-99) mg/dL POC Glucose (mg/dL) 124 H (75-99) mg/dL POC Glu Photovoltaic Technician Adair Ward Calcium (8.4-10.2) mg/dL Phosphorus (2.5-4.5) mg/dL Magnesium 2.1 (1.6-2.3) mg/dL Total Bilirubin (0.2-1.3) mg/dL AST (14-36) U/L ALT (4-34) U/L Alkaline Phosphatase (38-126) U/L Creatine Kinase (30-135) U/L CK-MB (CK-2) (0.0-2.4) ng/mL Troponin I (0.000-0.034) ng/mL NT-Pro-B Natriuret Pep pg/mL Total Protein (6.3-8.2) g/dL Albumin (3.5-5.0) g/dL Urine Color Urine Appearance (Clear) Urine pH (5.0-8.0) Ur Specific [place] (1.001-1.035) Urine Protein (Negative) Urine Glucose (UA) (Negative) Urine Ketones (Negative) Urine Blood (Negative) Urine Nitrite (Negative) Urine Bilirubin (Negative) Urine Urobilinogen (<2.0) mg/dL Ur Leukocyte Esterase (Negative) Urine Osmolality (50-1400) mosm/kg Ur Random Sodium mmol/L Coronavirus (PCR) (Not Detectd) 01/30/20 01/30/20 01/30/20 Range/Units 13:20 13:21 13:21 WBC (3.8-10.6) k/uL RBC (3.80-5.40) m/uL Hgb (11.4-16.0) gm/dL Hct (34.0-46.0) % MCV (80.0-100.0) fL MCH (25.0-35.0) pg MCHC (31.0-37.0) g/dL RDW (11.5-15.5) % Plt Count (150-450) k/uL Neutrophils % (Manual) % Band Neutrophils % % Lymphocytes % (Manual) % Monocytes % (Manual) % Eosinophils % (Manual) % Neutrophils # (Manual) (1.3-7.7) k/uL Lymphocytes # (Manual) (1.0-4.8) k/uL Monocytes # (Manual) (0-1.0) k/uL Eosinophils # (Manual) (0-0.7) k/uL Nucleated RBCs (0-0) /100 WBC Manual Slide Review Polychromasia Hypochromasia Poikilocytosis Anisocytosis (manual) Microcytosis PT (9.0-12.0) sec INR (<1.2) APTT (22.0-30.0) sec Sodium (137-145) mmol/L Potassium (3.5-5.1) mmol/L Chloride (98-107) mmol/L Carbon Dioxide (22-30) mmol/L Anion Gap mmol/L BUN (7-17) mg/dL Creatinine (0.52-1.04) mg/dL Est GFR (CKD-EPI)AfAm (>60 ml/min/1.73 sqM) Est GFR (CKD-EPI)NonAf (>60 ml/min/1.73 sqM) Glucose (74-99) mg/dL POC Glucose (mg/dL) (75-99) mg/dL POC Glu Photovoltaic Technician ID Calcium (8.4-10.2) mg/dL Phosphorus (2.5-4.5) mg/dL Magnesium (1.6-2.3) mg/dL Total Bilirubin (0.2-1.3) mg/dL AST (14-36) U/L ALT (4-34) U/L Alkaline Phosphatase (38-126) U/L Creatine Kinase (30-135) U/L CK-MB (CK-2) (0.0-2.4) ng/mL Troponin I (0.000-0.034) ng/mL NT-Pro-B Natriuret Pep pg/mL Total Protein (6.3-8.2) g/dL Albumin (3.5-5.0) g/dL Urine Color Urine Appearance (Clear) Urine pH (5.0-8.0) Ur Specific [place] (1.001-1.035) Urine Protein (Negative) Urine Glucose (UA) (Negative) Urine Ketones (Negative) Urine Blood (Negative) Urine Nitrite (Negative) Urine Bilirubin (Negative) Urine Urobilinogen (<2.0) mg/dL Ur Leukocyte Esterase (Negative) Urine Osmolality 466 (50-1400) mosm/kg Ur Random Sodium 40 mmol/L Coronavirus (PCR) Not Detected (Not Detectd) - EKG Data -: EKG Interpreted by Me (EKG shows sinus a 65, MT 134, QRS 78 607) - Radiology Data Radiology results: report reviewed (Chest x-rays positive significant left-sided pleural effusion), image reviewed Disposition Clinical Impression: S/P lobectomy of lung, Cough, Hydropneumothorax Narrative: Left HydroPtx Disposition: ADMITTED IP TO THIS HOSP Condition: Fair Is patient prescribed a controlled substance at d/c from ED?: No
[2020-01-29 05:45] LABS: HCT 26.4 % (34.0-46.0); HGB 8.3 gm/dL (11.4-16.0); Hypochromasia Moderate; MCHC 31.3 g/dL (31.0-37.0); MCV 76.8 fL (80.0-100.0); Mean Platelet Volume 6.7; Microcytosis Slight; Poikilocytosis Slight; RBC 3.44 m/uL (3.80-5.40); RDW 15.2 % (11.5-15.5)
--- NOTE | 2020-01-29 05:48 | XR ---
EXAM: XR Chest, 2 Views CLINICAL HISTORY: ITS.REASON XR Reason: Weakness TECHNIQUE: Frontal and lateral views of the chest. COMPARISON: Chest radiography 01/07/20 FINDINGS: See Impression. IMPRESSION: Known left hydropneumothorax. The amount of the air within the pleural space appears mildly increased while the amount of intrapleural fluid appears mildly decreased. Additional air-fluid level at the posterior inferior aspect of the left hemithorax is best seen on the lateral view. Trachea remains midline. Right lung remains clear. No other significant interval changes.
[2020-01-29 05:58] LABS: ALT 8 U/L (4-34); AST 14 U/L (14-36); African American GFR (CKD) >90 (>60 ml/min/1.73 sqM); Albumin 2.6 g/dL (3.5-5.0); Alkaline Phosphatase 134 U/L (38-126); Anion Gap 9 mmol/L; Blood Urea Nitrogen 8 mg/dL (7-17); Carbon Dioxide 34 mmol/L (22-30); Chloride 88 mmol/L (98-107); Creatine Kinase <20 U/L (30-135); Glucose 204 mg/dL (74-99); Magnesium 1.5 mg/dL (1.6-2.3); Non-African American GFR(CKD) >90 (>60 ml/min/1.73 sqM); Potassium 3.1 mmol/L (3.5-5.1); Sodium 131 mmol/L (137-145); Total Bilirubin 0.4 mg/dL (0.2-1.3)
[2020-01-29 06:09] LABS: INR 1.3 (<1.2); Partial Thromboplastin Time 26.7 sec (22.0-30.0); Prothrombin Time 12.7 sec (9.0-12.0)
[2020-01-29 06:22] LABS: Creatine Kinase MB <0.2 ng/mL (0.0-2.4); Troponin I <0.012 ng/mL (0.000-0.034)
[2020-01-29 06:27] LABS: Platelet Count 973 k/uL (150-450)
[2020-01-29 06:50] LABS: Appearance,Urine Clear (Clear); Bilirubin,Urine Negative (Negative); Blood,Urine Negative (Negative); Color,Urine Light Yellow; Glucose,Urine (UA) Negative (Negative); Ketones,Urine Negative (Negative); Leukocyte Esterase,Urine Negative (Negative); Nitrite,Urine Negative (Negative); PH, Urine 6.5 (5.0-8.0); Protein,Urine Negative (Negative); Specific Gravity,Urine 1.005 (1.001-1.035); Urobilinogen,Urine <2.0 mg/dL (<2.0)
[2020-01-29 07:00] LABS: Anisocytosis (M) Present; Band Neutrophils % 24 %; Eosinophils # (M) 0.12 k/uL (0-0.7); Lymphocytes # (M) 1.32 k/uL (1.0-4.8); Monocytes # (M) 0.72 k/uL (0-1.0); Neutrophils % (M) 59 %; Nucleated Red Blood Cells 0 /100 WBC (0-0); Polychromasia Present; Total Cells Counted 200
[2020-01-29] MEDS ORDERED: POTASSIUM CHLORIDE ER 20 MEQ TAB.ER PO STA (07:48)
--- NOTE | 2020-01-29 08:47 | P.GSCN ---
History of Present Illness Consult date: 01/29/20 Reason for Consult: Left-sided post thoracotomy wound, patient known to us Requesting physician: Mert Wilkins History of present illness: This is a 55-year-old active female who follows on an outpatient basis with Dr. Leroy. 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 She was seen for follow-up in the office with Dr. Wilkins yesterday, 01/28/2020 for pathology results and to examine her surgical incisions. The upper incision appeared to have a fluctuant area which was painful to the patient. She was felt to have possible infection and was started on oral Keflex. Apparently this morning around 5 AM the incision started to leak significant amounts of foul smelling thin yellowish fluid. The patient presented to the emergency room for evaluation and treatment. Remains afebrile. Vital signs stable. White blood cell count 12.0, hemoglobin 9.3, platelet count 973, sodium 131, potassium 3.1, creatinine 0.36, magnesium 1.5, troponin negative, BNP 1430. Chest x-ray demonstrated a known left hydropneumothorax, no significant interval changes. She was admitted for observation to determine treatment plans for surgical incision with consultation placed to Dr. Wilkins as the patient is well-known to us. Review of Systems Review of systems was completed and was negative except as noted - Integumentary Reports as per HPI, Reports wounds Past Medical History Past Medical History: Cancer, COPD, Diabetes Mellitus, Fibromyalgia, Hyperlipidemia, Hypertension Additional Past Medical History / Comment(s): HX OF CERVICAL CANCER WITH HYSTERECTOMY, NEW DIAGNOSIS LUNG CANCER., STATES SOB AT TIMES, COUGHING UP BLOOD. History of Any Multi-Drug Resistant Organisms: None Reported Past Surgical History: Hysterectomy Additional Past Surgical History / Comment(s): VAGINAL HYSTERECTOMY, upper left lobectomy Past Anesthesia/Blood Transfusion Reactions: No Reported Reaction, Motion Sickness Past Psychological History: Anxiety, Bipolar, Depression Smoking Status: Former smoker Past Alcohol Use History: None Reported Past Drug Use History: None Reported - Past Family History Mother Family Medical History: Cancer, Diabetes Mellitus Additional Family Medical History / Comment(s): BREAST CANCER Father Family Medical History: Cancer Additional Family Medical History / Comment(s): LUNG CANCER Medications and Allergies Home Medications Medication Instructions Recorded Confirmed Type DULoxetine HCL [Cymbalta] 60 mg PO QAM 06/04/16 12/28/19 History Acetaminophen Tab [Tylenol] 325 mg PO DIRECTED PRN 11/30/19 12/31/19 History metFORMIN HCL 500 mg PO BID 12/28/19 12/28/19 History Amiodarone [Cordarone] 400 mg PO BID #41 tab 01/04/20 Rx Apixaban [Eliquis] 5 mg PO BID #60 tab 01/04/20 Rx Bisoprolol [Zebeta] 10 mg PO DAILY #30 tab 01/04/20 Rx Levofloxacin [Levaquin] 500 mg PO DAILY 7 Days tab 01/04/20 Rx Pantoprazole [Protonix] 40 mg PO AC-BRKFST #30 tablet. 01/04/20 Rx Allergies Allergy/AdvReac Type Severity Reaction Status Date / Time mold Allergy Unknown Dyspnea, Verified 12/31/19 06:11 Rash, Swelling Penicillins Allergy Unknown Verified 12/31/19 06:11 Childhood Surgical - Exam Vital Signs Pulse Resp BP Pulse Ox 68 16 116/75 99 01/29/20 04:38 01/29/20 04:38 01/29/20 04:38 01/29/20 04:38 - General Sitting up in bed, appears comfortable well developed, well nourished, no distress, no pain - Eyes PERRL, normal ocular movement - ENT no hearing loss - Neck no masses, no bruits, trachea midline - Respiratory Lungs sounds diminished bilaterally, left greater than right. Respirations even, nonlabored. Currently on room air with oxygen saturation 95%. No cyanosis, positive clubbing - Cardiovascular S1, S2 present. Regular rate and rhythm. Palpable peripheral pulses bilaterally. No edema present. No calf pain or tenderness noted. - Abdomen Abdomen: soft, non tender, bowel sounds - Genitourinary Deferred - Rectum Deferred - Integumentary no rash, no growths - Neurologic normal coordination - Musculoskeletal normal gait, normal posture - Psychiatric oriented to time, oriented to person, oriented to place, speech is normal Results - Labs 01/29/20 05:16 01/29/20 05:16 Abnormal Lab Results - Last 24 Hours (Table) 01/29/20 01/29/2020 Range/Units 05:16 05:16 05:45 WBC 12.0 H (3.8-10.6) k/uL RBC 3.44 L (3.80-5.40) m/uL Hgb 8.3 L (11.4-16.0) gm/dL Hct 26.4 L (34.0-46.0) % MCV 76.8 L (80.0-100.0) fL MCH 24.0 L (25.0-35.0) pg Plt Count 973 H D (150-450) k/uL Neutrophils # (Manual) 9.90 H (1.3-7.7) k/uL PT 12.7 H (9.0-12.0) sec INR 1.3 H (<1.2) Sodium 131 L (137-145) mmol/L Potassium 3.1 L (3.5-5.1) mmol/L Chloride 88 L (98-107) mmol/L Carbon Dioxide 34 H (22-30) mmol/L Creatinine 0.36 L (0.52-1.04) mg/dL Glucose 204 H (74-99) mg/dL Calcium 8.0 L (8.4-10.2) mg/dL Magnesium 1.5 L (1.6-2.3) mg/dL Alkaline Phosphatase 134 H (38-126) U/L Creatine Kinase <20 L (30-135) U/L Total Protein 6.0 L (6.3-8.2) g/dL Albumin 2.6 L (3.5-5.0) g/dL Diabetes panel 01/29/20 Range/Units 05:16 Sodium 131 L (137-145) mmol/L Potassium 3.1 L (3.5-5.1) mmol/L Chloride 88 L (98-107) mmol/L Carbon Dioxide 34 H (22-30) mmol/L BUN 8 (7-17) mg/dL Creatinine 0.36 L (0.52-1.04) mg/dL Glucose 204 H (74-99) mg/dL Calcium 8.0 L (8.4-10.2) mg/dL AST 14 (14-36) U/L ALT 8 (4-34) U/L Alkaline Phosphatase 134 H (38-126) U/L Total Protein 6.0 L (6.3-8.2) g/dL Albumin 2.6 L (3.5-5.0) g/dL Calcium panel 01/29/20 Range/Units 05:16 Calcium 8.0 L (8.4-10.2) mg/dL Phosphorus 4.0 (2.5-4.5) mg/dL Albumin 2.6 L (3.5-5.0) g/dL Pituitary panel 01/29/20 Range/Units 05:16 Sodium 131 L (137-145) mmol/L Potassium 3.1 L (3.5-5.1) mmol/L Chloride 88 L (98-107) mmol/L Carbon Dioxide 34 H (22-30) mmol/L BUN 8 (7-17) mg/dL Creatinine 0.36 L (0.52-1.04) mg/dL Glucose 204 H (74-99) mg/dL Calcium 8.0 L (8.4-10.2) mg/dL Adrenal panel 01/29/20 Range/Units 05:16 Sodium 131 L (137-145) mmol/L Potassium 3.1 L (3.5-5.1) mmol/L Chloride 88 L (98-107) mmol/L Carbon Dioxide 34 H (22-30) mmol/L BUN 8 (7-17) mg/dL Creatinine 0.36 L (0.52-1.04) mg/dL Glucose 204 H (74-99) mg/dL Calcium 8.0 L (8.4-10.2) mg/dL Total Bilirubin 0.4 (0.2-1.3) mg/dL AST 14 (14-36) U/L ALT 8 (4-34) U/L Alkaline Phosphatase 134 H (38-126) U/L Total Protein 6.0 L (6.3-8.2) g/dL Albumin 2.6 L (3.5-5.0) g/dL - Imaging Chest x-ray: report reviewed, image reviewed EKG: image reviewed Assessment and Plan Assessment: 1. Superficial wound, draining thin foul-smelling yellowish drainage 2. History of poorly differentiated squamous cell carcinoma, status post left upper lobectomy on 12/31/2019 3. History of hypertension 4. History of hyperlipidemia 5. Previous tobacco dependence 6. Type 2 diabetes 7. History of cervical cancer status post hysterectomy 8. History of anxiety/bipolar disorder Plan: The patient was seen and examined at the bedside. Chart/diagnostics were reviewed. The case was discussed in detail with Dr. Wilkins. The patient is in no acute distress. The wound was cleaned. Culture was sent. At this time our recommendation is to continue oral Keflex. The patient should shower daily, dressing should be changed as needed per amount of drainage. The patient can be discharged home from cardiothoracic surgery standpoint on oral Keflex. Once culture results are obtained we will update antibiotics as necessary. The patient should follow in the office with Dr. Wilkins in 1 month. Medical management for the comorbidities per primary care service. Thank you for this consult. Please call with any further questions. Time with Patient: Greater than 30
[2020-01-29] MEDS: CEPHALEXIN 500 MG CAP PO SCH ×3 (10:06→17:30)
[2020-01-29] MEDS: MAGNESIUM OXIDE 400 MG TAB PO SCH ×2 (10:06→22:44)
[2020-01-29] MEDS ORDERED: Potassium Replacement Protocol 1 EACH MISC MISCELLANE PRN (11:40)
[2020-01-29] MEDS ORDERED: Magnesium Replacement Protocol 1 EACH MISC MISCELLANE PRN (11:41)
[2020-01-29 12:26] LABS: Glucose,Whole Blood 227 mg/dL (75-99)
[2020-01-29 15:21] LABS: Magnesium 1.5 mg/dL (1.6-2.3); Potassium 3.6 mmol/L (3.5-5.1)
[2020-01-29 16:46] LABS: Glucose,Whole Blood 192 mg/dL (75-99)
[2020-01-29] MEDS: MAGNESIUM SULFATE-D5W PMX 1 GM in DEXTROSE/WATER 1 100ML.BAG IVPB SCH ×2 (17:28→22:44)
[2020-01-29] MEDS: metFORMIN 500 MG TAB PO SCH (17:29)
[2020-01-29] MEDS: INSULIN ASPART (NovoLOG) 100 UNIT/ML VIAL SQ SCH ×2 (17:29→22:44)
--- NOTE | 2020-01-29 17:49 | P.HPIM ---
History of Present Illness H&P Date: 01/29/20 Chief Complaint: Foul-smelling draining wound from prior lobectomy incisional site History and Physical and Discharge Summary This is a 55-year-old female, nicotine dependent, 40 year smoking history, quit in October 2019, with recently diagnosed -poorly differentiated squamous cell CA left lung, status post left upper lobectomy on 12/31/2019, presented to the ER with complaints of increased foul-smelling draining from prior lobectomy incision sites. Patient had seen cardiothoracic surgeon Dr. Wilkins yesterday, started on oral Keflex. Afebrile, WBC12, vital signs stable. Hemoglobin 8.3, sodium 131, potassium 3.1, magnesium 1.5. Alkaline phosphatase mildly elevated 134. Chest x-ray reporting known left hydropneumothorax, trachea midline, right lung clear. EKG reporting normal sinus rhythm, lateral infarct, age undetermined. Troponin negative 1. Denies chest pain, palpitations or shortness of breath. Denies lightheadedness, dizziness or focal deficits. Review of Systems ROS Statement: Those systems with pertinent positive or pertinent negative responses have been documented in the HPI. ROS Other: All systems not noted in ROS Statement are negative. Past Medical History Past Medical History: Cancer, COPD, Diabetes Mellitus, Fibromyalgia, Hyperlipidemia, Hypertension Additional Past Medical History / Comment(s): HX OF CERVICAL CANCER WITH HYSTERE CTOMY, NEW DIAGNOSIS LUNG CANCER., STATES SOB AT TIMES, COUGHING UP BLOOD. History of Any Multi-Drug Resistant Organisms: None Reported Past Surgical History: Hysterectomy Additional Past Surgical History / Comment(s): VAGINAL HYSTERECTOMY, upper left lobectomy Past Anesthesia/Blood Transfusion Reactions: No Reported Reaction, Motion Sickness Past Psychological History: Anxiety, Bipolar, Depression Smoking Status: Former smoker Past Alcohol Use History: None Reported Past Drug Use History: None Reported - Past Family History Mother Family Medical History: Cancer, Diabetes Mellitus Additional Family Medical History / Comment(s): BREAST CANCER Father Family Medical History: Cancer Additional Family Medical History / Comment(s): LUNG CANCER Medications and Allergies Home Medications Medication Instructions Recorded Confirmed Type DULoxetine HCL [Cymbalta] 60 mg PO DAILY 06/04/16 01/29/20 History Acetaminophen Tab [Tylenol] 325 mg PO Q6H PRN 11/30/19 01/29/20 History metFORMIN HCL 500 mg PO BID 12/28/19 01/29/20 History Albuterol Inhaler [Ventolin Hfa 2 puff INHALATION RT-QID PRN 01/29/20 01/29/20 History Inhaler] Amiodarone [Cordarone] 200 mg PO DAILY 01/29/20 01/29/20 History Apixaban [Eliquis] 5 mg PO BID 01/29/20 01/29/20 History Bisoprolol Fumarate [Zebeta] 10 mg PO DAILY 01/29/20 01/29/20 History Cephalexin [Keflex] 500 mg PO QID 01/29/20 01/29/20 History Magnesium Oxide [Mag-Ox] 400 mg PO BID #0 tab 01/29/20 Rx Pantoprazole Sodium 40 mg PO AC-BRKFST 01/29/20 01/29/20 History Allergies Allergy/AdvReac Type Severity Reaction Status Date / Time mold Allergy Unknown Dyspnea, Verified 01/29/20 09:45 Rash, Swelling Penicillins Allergy Unknown Verified 01/29/20 09:45 Childhood Physical Exam Vitals: Vital Signs Temp Pulse Pulse Resp BP BP Pulse Ox 01/29/20 07:00 98.3 F 66 18 135/74 95 01/29/20 06:50 98.4 F 66 14 134/53 97 01/29/20 04:48 97.3 F L 01/29/20 04:38 68 16 116/75 99 Intake and Output 01/28/20 01/29/20 01/29/20 22:59 06:59 14:59 Other: Weight 61.235 kg GENERAL: Sitting up in chair, no acute distress NECK: No JVD. No thyroid enlargement. No LNs CARDIOVASCULAR: S1, S2 regular. No murmur RESPIRATION: Breath sounds less diminished. ABDOMEN: Soft, nontender . No guarding. no masses palpable. No ascites, No hepatosplenomegaly.Bowel sounds heard. LEGS: No edema. no swelling. No clubbing, no cyanosis PSYCHIATRY: Alert and oriented X3, mood and affect normal. NERVOUS SYSTEM: Cranial N 2-12 grossly normal. Moves all 4 limbs. No focal deficits. Strength and sensation grossly intact.. Skin: Left lateral prior lobectomy incisional site with-serosanguineous purulent drainage, foul-smelling. Results CBC & Chem 7: 01/29/20 05:16 01/29/20 14:29 Labs: Abnormal Lab Results - Last 24 Hours (Table) 01/29/20 01/29/20 01/29/20 Range/Units 05:16 05:16 05:45 WBC 12.0 H (3.8-10.6) k/uL RBC 3.44 L (3.80-5.40) m/uL Hgb 8.3 L (11.4-16.0) gm/dL Hct 26.4 L (34.0-46.0) % MCV 76.8 L (80.0-100.0) fL MCH 24.0 L (25.0-35.0) pg Plt Count 973 H D (150-450) k/uL Neutrophils # (Manual) 9.90 H (1.3-7.7) k/uL PT 12.7 H (9.0-12.0) sec INR 1.3 H (<1.2) Sodium 131 L (137-145) mmol/L Potassium 3.1 L (3.5-5.1) mmol/L Chloride 88 L (98-107) mmol/L Carbon Dioxide 34 H (22-30) mmol/L Creatinine 0.36 L (0.52-1.04) mg/dL Glucose 204 H (74-99) mg/dL Calcium 8.0 L (8.4-10.2) mg/dL Magnesium 1.5 L (1.6-2.3) mg/dL Alkaline Phosphatase 134 H (38-126) U/L Creatine Kinase <20 L (30-135) U/L Total Protein 6.0 L (6.3-8.2) g/dL Albumin 2.6 L (3.5-5.0) g/dL Assessment and Plan Assessment: (1) Draining from prior recent left upper lobectomy incisional site, cultures pending (2) poorly differentiated squamous cell CA, left upper lobe Current Visit: Yes Status: Acute Code(s): C34.90 - MALIGNANT NEOPLASM OF UNSP PART OF UNSP BRONCHUS OR LUNG SNOMED Code(s): 733126444 (3) Fibromyalgia Current Visit: Yes Status: Acute Code(s): M79.7 - FIBROMYALGIA SNOMED Code(s): 411177398 (4) Cavitary lesion of lung Current Visit: No Status: Acute Code(s): J98.4 - OTHER DISORDERS OF LUNG SNOMED Code(s): 755044101 (5) Essential (primary) hypertension Current Visit: No Status: Acute Code(s): I10 - ESSENTIAL (PRIMARY) HYPERTENSION SNOMED Code(s): 65866991 (6) Major depressive disorder, recurrent, moderate Current Visit: No Status: Acute Code(s): F33.1 - MAJOR DEPRESSIVE DISORDER, RECURRENT, MODERATE SNOMED Code(s): 440348787 (7) Type 2 diabetes mellitus without complications Current Visit: No Status: Acute Code(s): E11.9 - TYPE 2 DIABETES MELLITUS WITHOUT COMPLICATIONS SNOMED Code(s): 313047103 (8) Hyponatremia Current Visit: Yes Status: Acute Code(s): E87.1 - HYPO-OSMOLALITY AND HYPONATREMIA SNOMED Code(s): 63701285 (9) hypokalemia (10( hypomagnesemia Plan: Continue on current medication regime ,monitoring and symptomatic treatment. Evaluated by cardiovascular surgery and cleared for discharge. Patient is to continue oral antibiotics-/Wound Care as previously instructed per cardiovascular surgery. Patient to receive potassium and magnesium supplementation and may be able to be discharged when within normal limits. Follow-up with PCP in one week. Follow with cardiothoracic surgery as advised. The impression and plan of care has been dictated as directed. : I performed a history and examination of this patient, discussed the same with the dictator. I agree with the dictator's note ,documented as a scribe. Any additional findings or plans will be noted.
[2020-01-29] MEDS: AMIODARONE 200 MG TAB PO SCH (19:16)
[2020-01-29 20:23] LABS: Glucose,Whole Blood 185 mg/dL (75-99)
[2020-01-29] MEDS: APIXABAN 5 MG TAB PO SCH (22:44)
[2020-01-30] MEDS: CEPHALEXIN 500 MG CAP PO SCH ×3 (00:23→11:41)
[2020-01-30 02:25] LABS: Magnesium 2.1 mg/dL (1.6-2.3); Potassium 2.8 mmol/L (3.5-5.1)
[2020-01-30] MEDS: POTASSIUM CHLORIDE ER 20 MEQ TAB.ER PO SCH ×5 (04:33→17:51)
[2020-01-30 06:48] LABS: Glucose,Whole Blood 160 mg/dL (75-99)
[2020-01-30] MEDS: INSULIN ASPART (NovoLOG) 100 UNIT/ML VIAL SQ SCH ×4 (08:25→21:40)
[2020-01-30] MEDS: BISOPROLOL 5 MG TAB PO SCH (08:26)
[2020-01-30] MEDS: AMIODARONE 200 MG TAB PO SCH (08:26)
[2020-01-30] MEDS: DULoxetine HCL 60 MG CAPSULE.DR PO SCH (08:26)
[2020-01-30] MEDS: APIXABAN 5 MG TAB PO SCH ×2 (08:26→21:40)
[2020-01-30] MEDS: MAGNESIUM OXIDE 400 MG TAB PO SCH ×2 (08:26→21:40)
[2020-01-30] MEDS: PANTOPRAZOLE 40 MG TABLET PO SCH (08:26)
[2020-01-30] MEDS: metFORMIN 500 MG TAB PO SCH ×2 (08:26→17:52)
--- NOTE | 2020-01-30 10:24 | P.PN ---
Subjective Progress Note Date: 01/30/20 Principal diagnosis: This is a 55-year-old female patient who follows with Dr. Leroy on an outpatient basis. She has a past medical history of poorly differentiated squamous cell carcinoma, status post left upper lobectomy on 12/31/2019, hypertension, hyperlipidemia, chronic tobacco abuse, type 2 diabetes mellitus, cervical cancer status post hysterectomy, anxiety and bipolar disorder. On 01/28/2020 she had a follow-up visit with Dr. Teddy Wilkins for her pathology results of her recent left upper lobectomy. Upon exam of her surgical incisions there was a fluctuant area which was painful to touch on her left chest. Subsequently she was started on oral Keflex. Yesterday morning she developed some drainage from that incision site with the fluctuant area, leaking foul smelling yellowish fluid. Her initial lab results showed a WBC count 12.0, Hgb 8.3, neutrophils 59%, positive band neutrophil percent 24 and neutrophil numbers 9.0. A chest x-ray was completed which demonstrated a normal and the left hydropneumothorax, with no significant interval changes. She was admitted to observation to determine further treatment plans and surgical incision with consultation placed to Dr. Teddy Wilkins. On 01/30/2020 the patient was seen on the fourth floor medical surgical unit on follow-up. She is resting comfortably in bed, is in no acute distress and denies any complaints of shortness of breath. The patient does report she is having some intermittent pain to her left chest where her incision is draining. She does have a dressing which is clean and intact to her left chest which continues to drain thick foul-smelling yellowish colored drainage. Her Gram stain yesterday shows many gram-positive bacilli and she remains on Keflex for antibiotic treatment. She is hemodynamically stable, remains afebrile, although this morning her blood pressure is 176/71. Oxygen saturations are 96% on room air. Culture results from her surgical site to her left chest remains pending. Objective - Vital Signs Vital signs: Vital Signs Temp 97.9 F 01/30/20 07:05 Pulse 71 01/30/20 07:05 Resp 16 01/30/20 08:15 BP 176/71 01/30/20 07:05 Pulse Ox 96 01/30/20 07:05 Intake & Output 01/29/20 01/30/20 01/30/20 18:59 06:59 18:59 Intake Total 100 Balance 100 Intake: Intake, IV Titration 100 Amount Magnesium Sulfate-D5w Pmx 100 1 gm In Dextrose/Water 1 100ml.bag @ 100 mls/hr IVPB Q1H [facility] Rx#: [id number] Other: Voiding Method Toilet Toilet # Voids 2 2 - Exam This is a 55-year-old female patient who is laying comfortably in bed. She is in no acute distress. Oxygen saturations are 96% on room air. - Constitutional General appearance: Present: cooperative, no acute distress, thin - EENT Eyes: Present: PERRLA, normal appearance. Absent: scleral icterus ENT: Present: hearing grossly normal, normal oropharynx. Absent: thrush - Neck Details: Neck is supple, no JVD, no lymphadenopathy. - Respiratory Details: Lungs sounds diminished bilaterally, left greater than right. Respirations are symmetrical, nonlabored. Currently on room air with oxygen saturation 96%. No cyanosis, positive clubbing. - Cardiovascular Details: Regular rhythm and rate. S1 and S2 present, negative for S3, gallop or murmur. No edema present. - Gastrointestinal Gastrointestinal Comment(s): Abdomen soft, nontender and nondistended. Active bowel sounds present in all 4 quadrants. No guarding or rigidity. - Integumentary Integumentary Comment(s): Skin is warm and dry. No clubbing or cyanosis is present. Fluctuant area to her left chest without redness, warmth to touch. Thick foul-smelling yellowish drainage. - Neurologic Neurologic: Present: CNII-XII intact - Musculoskeletal Musculoskeletal: Present: gait normal, strength equal bilaterally - Psychiatric Psychiatric: Present: A&O x's 3, appropriate affect, intact judgment & insight - Allied health notes Allied health notes reviewed: nursing - Labs CBC & Chem 7: 01/29/20 05:16 01/30/20 00:59 Labs: Abnormal Lab Results - Last 24 Hours (Table) 01/29/20 01/29/20 01/29/20 Range/Units 12:24 14:29 16:44 Potassium (3.5-5.1) mmol/L POC Glucose (mg/dL) 227 H 192 H (75-99) mg/dL Magnesium 1.5 L (1.6-2.3) mg/dL 01/29/20 01/30/20 01/30/20 Range/Units 20:21 00:59 06:46 Potassium 2.8 L (3.5-5.1) mmol/L POC Glucose (mg/dL) 185 H 160 H (75-99) mg/dL Magnesium (1.6-2.3) mg/dL Microbiology - Last 24 Hours (Table) 01/29/20 09:00 Gram Stain - Preliminary Chest Wound Culture - Preliminary Assessment and Plan Assessment: 1. Superficial wound, draining thick foul-smelling yellowish drainage 2. History of poorly differentiated squamous cell carcinoma, status post left upper lobectomy on 12/31/2019 3. History of hypertension 4. History of hyperlipidemia 5. Previous tobacco dependence 6. Type 2 diabetes 7. History of cervical cancer status post hysterectomy 8. History of anxiety/bipolar disorder Plan: 1. Awaiting culture results and sensitivities, continue on current antibiotic regimen. 2. Local wound care and dressing changes daily and as needed. 3. Medical management and other comorbidities per primary care service. 4. Continue to shower daily. 5. We will follow the culture results while in the hospital, the patient may require a PICC line and IV antibiotics. 6. Continue to encourage smoking cessation. 7. More recommendations to follow based on patient's clinical course. Time with Patient: Less than 30
[2020-01-30] MEDS ORDERED: VANCOMYCIN 1,000 MG in SODIUM CHLORIDE 0.9% 250 ML IVPB STA (10:30)
[2020-01-30] MEDS ORDERED: RX INFO: IV CONTRAST WAS GIVEN 1 EACH MISC MISCELLANE PRN (10:35)
--- NOTE | 2020-01-30 11:18 | CT ---
EXAMINATION TYPE: CT chest w con DATE OF EXAM: 01/30/2020 COMPARISON: Previous study dated 10/20/2019. HISTORY: Left sided chest drainage post lobectomy CT DLP: 254.4 mGycm Automated exposure control for dose reduction was used. CONTRAST: CT scan of the chest is performed with IV Contrast, patient injected with 100 mL of Isovue 300. FINDINGS: There has been a left upper lobectomy. There is dense consolidation of the remainder the karen ng. There continues to be an air-fluid level in the left apex. There is developed right upper lobe groundglass opacity. This was not present previously. There is no significant axillary or internal mammary adenopathy. There is some shotty mediastinal waqas nopathy. The heart is mildly enlarged. Visualized portions of the upper abdomen are unremarkable. IMPRESSION: 1. Residual left apical cavity with an air-fluid level within. The margins would make infection likel y. 2. Dense consolidation of nearly the entire left lung. 3. Patchy groundglass opacity in the right upper lobe. I could not exclude COVID 19 infection. 4. Cardiomegaly.
[2020-01-30 11:41] LABS: Glucose,Whole Blood 124 mg/dL (75-99)
[2020-01-30] MEDS: VANCOMYCIN 1,250 MG in SODIUM CHLORIDE 0.9% 250 ML IVPB SCH ×2 (11:43→21:40)
--- NOTE | 2020-01-30 12:30 | P.PN ---
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 Patient had seen cardiothoracic surgeon Dr. Wilkins yesterday, started on oral Keflex. Afebrile, WBC12, vital signs stable. Hemoglobin 8.3, sodium 131, potassium 3.1, magnesium 1.5. Alkaline phosphatase mildly elevated 134. Chest x-ray reporting known left hydropneumothorax, trachea midline, right lung clear. EKG reporting normal sinus rhythm, lateral infarct, age undetermined. Troponin negative 1. Denies chest pain, palpitations or shortness of breath. Denies lightheadedness, dizziness or focal deficits. 01/30/2020: The patient was not discharged last night as a potassium of return to normal. She does have a small leukocytosis which may be consistent with her recent surgeries and lung cancer, however a repeat is pending for this morning. I discussed the case currently with thoracic surgery and they felt that because of the white count, Keflex and discharged to be held. We discussed pulmonology consult which was done. That is in progress and they had ordered a CT chest showing an air-fluid level and dense consolidation remainder of the lung left lobe after left upper lobectomy. The margins suggested infection. Currently she's been placed on meropenem. Her wound continues to drain. Cultures are pending, but currently show no growth. He denies any significant chest pains, pressures, or shortness of breath this time. She denies any nausea or vomiting. She reports her appetite is little bit improved. She had not been eating well recently due to her cancer and treatment. Potassium this morning is 3.2. Objective - Vital Signs Vital signs: Vital Signs Temp 97.9 F 01/30/20 07:05 Pulse 71 01/30/20 07:05 Resp 16 01/30/20 08:15 BP 176/71 01/30/20 07:05 Pulse Ox 96 01/30/20 07:05 Intake & Output 01/29/20 01/30/20 01/30/20 18:59 06:59 18:59 Intake Total 100 Balance 100 Intake: Intake, IV Titration 100 Amount Magnesium Sulfate-D5w Pmx 100 1 gm In Dextrose/Water 1 100ml.bag @ 100 mls/hr IVPB Q1H [facility] Rx#: [id number] Other: Voiding Method Toilet Toilet # Voids 2 2 - Exam GENERAL: Sitting up in chair, no acute distress NECK: No JVD. No thyroid enlargement. No LNs CARDIOVASCULAR: S1, S2 regular. No murmur RESPIRATION: Breath sounds less diminished. Course with no active wheezes rales or crackles at this time. CHEST WALL: Dressing is clean dry and intact at this time. ABDOMEN: Soft, nontender . No guarding. no masses palpable. No ascites, No hepatosplenomegaly.Bowel sounds heard. LEGS: No edema. no swelling. No clubbing, no cyanosis PSYCHIATRY: Alert and oriented X3, mood and affect normal. NERVOUS SYSTEM: Cranial N 2-12 grossly normal. Moves all 4 limbs. No focal deficits. Strength and sensation grossly intact.. Skin: Left lateral prior lobectomy incisional site with-serosanguineous purulent drainage, foul-smelling. - Labs CBC & Chem 7: 01/29/20 05:16 01/30/20 10:19 Labs: Abnormal Lab Results - Last 24 Hours (Table) 01/29/20 01/29/20 01/29/20 Range/Units 12:24 14:29 16:44 Potassium (3.5-5.1) mmol/L POC Glucose (mg/dL) 227 H 192 H (75-99) mg/dL Magnesium 1.5 L (1.6-2.3) mg/dL 01/29/20 01/30/20 01/30/20 Range/Units 20:21 00:59 06:46 Potassium 2.8 L (3.5-5.1) mmol/L POC Glucose (mg/dL) 185 H 160 H (75-99) mg/dL Magnesium (1.6-2.3) mg/dL 01/30/20 01/30/20 Range/Units 10:19 11:39 Potassium 3.2 L (3.5-5.1) mmol/L POC Glucose (mg/dL) 124 H (75-99) mg/dL Magnesium (1.6-2.3) mg/dL Microbiology - Last 24 Hours (Table) 01/29/20 09:00 Gram Stain - Preliminary Chest Wound Culture - Preliminary Assessment and Plan (1) Hydropneumothorax Current Visit: Yes Status: Acute Priority: High Code(s): J94.8 - OTHER SP ECIFIED PLEURAL CONDITIONS SNOMED Code(s): 94085561 (2) Cavitary lesion of lung Current Visit: No Status: Acute Priority: High Code(s): J98.4 - OTHER DISORDERS OF LUNG SNOMED Code(s): 455647833 (3) Hypokalemia Current Visit: Yes Status: Acute Priority: High Code(s): E87.6 - HYPOKALEMIA SNOMED Code(s): 58850839 (4) Microcytic anemia Current Visit: Yes Status: Chronic Priority: Medium Code(s): D50.9 - IRON DEFICIENCY ANEMIA, UNSPECIFIED SNOMED Code(s): 482312552 (5) COPD (chronic obstructive pulmonary disease) Current Visit: Yes Status: Chronic Priority: Medium Code(s): J44.9 - CHRONIC OBSTRUCTIVE PULMONARY DISEASE, UNSPECIFIED SNOMED Code(s): 44593471 (6) S/P lobectomy of lung Current Visit: Yes Status: Chronic Priority: Low Code(s): Z90.2 - ACQUIRED ABSENCE OF LUNG [PART OF] SNOMED Code(s): 46325189023349722 (7) Adenocarcinoma of lung Current Visit: No Status: Chronic Priority: Medium Code(s): C34.90 - MALIGNANT NEOPLASM OF UNSP PART OF UNSP BRONCHUS OR LUNG SNOMED Code(s): 191097474 (8) Essential (primary) hypertension Current Visit: No Status: Chronic Priority: Medium Code(s): I10 - ESSENTIAL (PRIMARY) HYPERTENSION SNOMED Code(s): 72367039 (9) Major depressive disorder, recurrent, moderate Current Visit: No Status: Chronic Priority: Medium Code(s): F33.1 - MAJOR DEPRESSIVE DISORDER, RECURRENT, MODERATE SNOMED Code(s): 790312046 (10) Type 2 diabetes mellitus without complications Current Visit: No Status: Chronic Priority: Medium Code(s): E11.9 - TYPE 2 DIABETES MELLITUS WITHOUT COMPLICATIONS SNOMED Code(s): 640907459 (11) Paroxysmal atrial fibrillation Current Visit: Yes Status: Chronic Priority: Medium Code(s): I48.0 - PAROXYSMAL ATRIAL FIBRILLATION SNOMED Code(s): 560271371 (12) intermediate current use of anticoagulant Current Visit: Yes Status: Chronic Priority: Medium Code(s): Z79.01 - HALFWAY (CURRENT) USE OF ANTICOAGULANTS SNOMED Code(s): 598579316 (13) Hyponatremia Current Visit: Yes Status: Acute Priority: Medium Code(s): E87.1 - HYPO-OSMOLALITY AND HYPONATREMIA SNOMED Code(s): 55860712 Plan: Repeat labs now and in a.m. Potassium protocol. We'll wait on further recommendations from pulmonology, thoracic surgery. She'll continue her anticoagulation, and medications Iron studies Reevaluated next 24 hours
[2020-01-30] MEDS ORDERED: Potassium Replacement Protocol 1 EACH MISC MISCELLANE PRN (12:56)
[2020-01-30 16:47] LABS: Glucose,Whole Blood 204 mg/dL (75-99)
--- NOTE | 2020-01-30 16:59 | CONS ---
CONSULTATION PULMONARY/CRITICAL CARE CONSULTATION: DATE OF CONSULTATION: 01/30/2020 55-year-old female who sees Dr. Leroy. She had recent [place] procedure done by Dr. Wilkins and subsequent to that had a robotically assisted left upper lobe resection with mediastinal lymph node dissection. The surgery was done on December 30. She turned out to have poorly differentiated squamous cell carcinoma and her lymph nodes I believe were all negative. Anyway, the patient was seen by Dr. Wilkins recently on in the office. The patient was started on Keflex at that time. Unfortunately, she got 3 doses of Keflex and then when she went to bed at the day prior to being admitted, she noted that she had significant very purulent foul-smelling drainage from the left chest area from where one of the incision sites were for the surgery. She came into the ER to be evaluated. She was seen by the cardiothoracic front desk assistant, Tiffany Cook yesterday and by Navid Boswell today. I was asked to see her by Dr. Leroy. The patient does have a history of hypertension, hyperlipidemia, previous history of chronic tobacco use, type 2 diabetes, cervical cancer with previous hysterectomy, anxiety and bipolar disorder. As I mentioned, she was seen in the office on January [address] Wilkins. The patient was started on Keflex at that time. She apparently had a fluctuant area at the site of the VATS procedure. Anyway, currently she is doing reasonably well. She has a bit of pain on the left side of her chest. She denies having any significant other symptoms although when I ask her further, she does admit to some chills. She may have some fever as well. She does admit to being mildly short of breath with chest pain and also complains of cough. She is not producing any phlegm when she coughs. She was started on vancomycin and meropenem by myself. Cultures were done. We will also do a COVID-19 test on her. MEDICAL HISTORY: Includes the lung cancer squamous cell carcinoma recently diagnosed with surgery on December 30 and COPD, diabetes, fibromyalgia, hyperlipidemia, hypertension, and history of cervical cancer. She did have a hysterectomy for that. Other surgeries include the left upper lobectomy, the [place] procedure and vaginal hysterectomy. SOCIAL HISTORY: Positive for previous tobacco. She does not smoke currently. Denies any alcohol use or illicit drug use. FAMILY HISTORY: Positive for mother with diabetes and breast cancer and a father with lung cancer. HOME MEDICATIONS: Include Cymbalta, Tylenol, metformin, Cordarone, Eliquis, Zebeta, Levaquin and Protonix. ALLERGIES: MOLD. SHE ALSO HAS A PENICILLIN ALLERGY. REVIEW OF SYSTEMS: CONSTITUTIONAL: Fever and chills. NEUROLOGIC: Negative. HEENT: Negative. CARDIOVASCULAR: Chest pain on the left side, mostly on the lateral posterior chest area. PULMONARY: Mild shortness of breath and cough. GI: Negative. : Negative. RHEUMATOLOGIC: Negative. IMMUNOLOGIC: Negative. ENDOCRINOLOGIC: Negative. DERMATOLOGIC: Drainage from one of the left surgical sites. Current vital signs are reviewed. Temperature 97.9, pulse 71, respirations 16, blood pressure 176/71, mean 106 room air saturation 96%. Appears in no acute distress. HEENT: Examination is grossly unremarkable. NECK: Supple. Full range of motion. No adenopathy. Neck veins are flat. CARDIOVASCULAR: Examination reveals regular rhythm and rate. Heart rate 71. LUNGS: Reveal diminished breath sounds throughout the entire left lung. The right lung is clear. A few scattered rhonchi noted. No wheezes or crackles. She does have drainage from one of the surgical sites. It is quite purulent and quite odorous. ABDOMEN: Soft. Bowel sounds are heard. EXTREMITIES are intact. No cyanosis, clubbing, or edema. SKIN: Without rash. NEUROLOGIC: Examination is brief but nonfocal. LABS: Reviewed. White count 12, hemoglobin 8.3, hematocrit 26.4, platelet count 173,000. PT 12.7, INR 1.3, PTT 26.7. Sodium 131, potassium 3.6, chloride 88, CO2 is 34, anion gap is 9. BUN and creatinine were 8 and 0.36. Calcium 8, magnesium 1.5, alkaline phosphatase 134, total protein 6. N terminal proBNP 1430. Urine is clean. Microbiology: Gram stain shows moderate PMNs and many gram-positive bacilli. No identification as yet. Chest x-ray shows a left hydropneumothorax with a clear right lung. CT scan of the chest that was done today on the shows a residual left apical cavity with air-fluid level, dense consolidation of nearly the entire left lung, and patchy ground-glass opacity to the right upper lobe. Medications are reviewed. Again as I mentioned, we did place her on vancomycin and meropenem. Other medications are appropriate. ASSESSMENT: 1. Pleural space infection with drainage from the previous surgical site. 2. Recent [place] procedure. 3. Recent robotically assisted left upper lobectomy for squamous cell carcinoma. 4. History of chronic obstructive pulmonary disease. 5. Diabetes mellitus. 6. Fibromyalgia. 7. Hyperlipidemia. 8. Benign essential hypertension. 9. History of cervical cancer with previous hysterectomy. PLAN: The patient is on appropriate antibiotics. Cultures have been done. Will await culture results. Chest x-ray and CT scans are reviewed. Additional recommendations and suggestions are forthcoming. We will continue to follow. MMODL / IJN: [id number] /
[2020-01-30] MEDS: MEROPENEM 1 GM in SODIUM CHLORIDE 0.9% 100 ML IVPB SCH (18:12)
[2020-01-30 21:06] LABS: Glucose,Whole Blood 171 mg/dL (75-99)
[2020-01-30] MEDS: ACETAMINOPHEN TAB 325 MG TAB PO PRN (21:48)
[2020-01-31] MEDS: MEROPENEM 1 GM in SODIUM CHLORIDE 0.9% 100 ML IVPB SCH ×3 (00:04→15:38)
[2020-01-31] MEDS: VANCOMYCIN 1,250 MG in SODIUM CHLORIDE 0.9% 250 ML IVPB SCH ×3 (04:30→21:13)
[2020-01-31 06:57] LABS: Glucose,Whole Blood 159 mg/dL (75-99)
--- NOTE | 2020-01-31 07:29 | XR ---
EXAMINATION TYPE: XR chest 1V portable DATE OF EXAM: 01/31/2020 HISTORY: left hydropneumothorax. REFERENCE: Previous study dated 01/29/2020. FINDINGS: There is been a reduction in the amount of air in the left apex. There is a large left-side d effusion +/- airspace disease. The right lung remains clear. The heart is obscured. There is no maria antonia ft of the mediastinum. IMPRESSION: CONTINUING HYDROPNEUMOTHORAX ON THE LEFT WITH A REDUCTION IN THE AMOUNT OF AIR WITHIN THE CAVITY.
[2020-01-31] MEDS: AMIODARONE 200 MG TAB PO SCH (08:05)
[2020-01-31] MEDS: DULoxetine HCL 60 MG CAPSULE.DR PO SCH (08:05)
[2020-01-31] MEDS: MAGNESIUM OXIDE 400 MG TAB PO SCH ×2 (08:05→21:13)
[2020-01-31] MEDS: PANTOPRAZOLE 40 MG TABLET PO SCH (08:05)
[2020-01-31] MEDS: APIXABAN 5 MG TAB PO SCH ×2 (08:05→21:13)
[2020-01-31] MEDS: metFORMIN 500 MG TAB PO SCH ×2 (08:05→17:06)
[2020-01-31] MEDS: BISOPROLOL 5 MG TAB PO SCH (08:06)
[2020-01-31] MEDS: INSULIN ASPART (NovoLOG) 100 UNIT/ML VIAL SQ SCH ×4 (08:07→21:14)
[2020-01-31] MEDS ORDERED: VANCOMYCIN TROUGH DUE 1 EACH MISC MISCELLANE ONE (10:00)
[2020-01-31 10:28] LABS: HCT 21.5 % (34.0-46.0); Hypochromasia Marked; MCH 23.8 pg (25.0-35.0); MCHC 29.8 g/dL (31.0-37.0); MCV 79.8 fL (80.0-100.0); Mean Platelet Volume 6.4; Platelet Count 870 k/uL (150-450); Poikilocytosis Moderate; RBC 2.69 m/uL (3.80-5.40); WBC 4.5 k/uL (3.8-10.6)
[2020-01-31 10:40] LABS: African American GFR (CKD) >90 (>60 ml/min/1.73 sqM); Anion Gap 4 mmol/L; Blood Urea Nitrogen 7 mg/dL (7-17); Calcium 7.7 mg/dL (8.4-10.2); Carbon Dioxide 31 mmol/L (22-30); Chloride 98 mmol/L (98-107); Glucose 135 mg/dL (74-99); Magnesium 1.8 mg/dL (1.6-2.3); Non-African American GFR(CKD) >90 (>60 ml/min/1.73 sqM); Potassium 4.2 mmol/L (3.5-5.1); Sodium 133 mmol/L (137-145)
[2020-01-31 10:41] LABS: HGB 6.4 gm/dL (11.4-16.0)
[2020-01-31 11:30] LABS: HCT 24.3 % (34.0-46.0); Hypochromasia Marked; MCH 22.5 pg (25.0-35.0); MCHC 28.3 g/dL (31.0-37.0); MCV 79.6 fL (80.0-100.0); Poikilocytosis Slight; RBC 3.05 m/uL (3.80-5.40); RDW 15.4 % (11.5-15.5); WBC 5.8 k/uL (3.8-10.6)
[2020-01-31 11:39] LABS: Glucose,Whole Blood 148 mg/dL (75-99)
[2020-01-31 11:39] LABS: Eosinophils # (M) 0.18 k/uL (0-0.7); Lymphocytes # (M) 1.35 k/uL (1.0-4.8); Monocytes # (M) 0.14 k/uL (0-1.0); Neutrophils # (M) 2.84 k/uL (1.3-7.7); Neutrophils % (M) 63 %; Nucleated Red Blood Cells 0 /100 WBC (0-0); Total Cells Counted 100
[2020-01-31 11:40] LABS: Anisocytosis (M) Present
[2020-01-31 11:45] LABS: HGB 6.9 gm/dL (11.4-16.0)
[2020-01-31 11:46] LABS: Platelet Count 1044 k/uL (150-450)
--- NOTE | 2020-01-31 12:18 | P.PN ---
Subjective Progress Note Date: 01/31/20 Principal diagnosis: This is a 55-year-old female patient who follows with Dr. Leroy on an outpatient basis. She has a past medical history of poorly differentiated squamous cell carcinoma, status post left upper lobectomy on 12/31/2019, hypertension, hyperlipidemia, chronic tobacco abuse, type 2 diabetes mellitus, cervical cancer status post hysterectomy, anxiety and bipolar disorder. On 01/28/2020 she had a follow-up visit with Dr. Teddy Wilkins for her pathology results of her recent left upper lobectomy. Upon exam of her surgical incisions there was a fluctuant area which was painful to touch on her left chest. Subsequently she was started on oral Keflex. Yesterday morning she developed some drainage from that incision site with the fluctuant area, leaking foul smelling yellowish fluid. Her initial lab results showed a WBC count 12.0, Hgb 8.3, neutrophils 59%, positive band neutrophil percent 24 and neutrophil numbers 9.0. A chest x-ray was completed which demonstrated a normal and the left hydropneumothorax, with no significant interval changes. She was admitted to observation to determine further treatment plans and surgical incision with consultation placed to Dr. Teddy Wilkins. On 01/30/2020 the patient was seen on the fourth floor medical surgical unit on follow-up. She is resting comfortably in bed, is in no acute distress and denies any complaints of shortness of breath. The patient does report she is having some intermittent pain to her left chest where her incision is draining. She does have a dressing which is clean and intact to her left chest which continues to drain thick foul-smelling yellowish colored drainage. Her Gram stain yesterday shows many gram-positive bacilli and she remains on Keflex for antibiotic treatment. She is hemodynamically stable, remains afebrile, although this morning her blood pressure is 176/71. Oxygen saturations are 96% on room air. Culture results from her surgical site to her left chest remains pending. On 01/31/2020 the patient was seen on the fourth floor medical surgical unit on follow-up. Patient is sitting up to the bedside edge eating her breakfast. She reports she is feeling somewhat better today. Denies any complaints of shortness of breath or pain. The drainage to her left chest wall incision site seems to have improved today. Preliminary microbiology aerobic wound culture showing no growth after 24 hours. She was started on vancomycin and meropenem yesterday for IV antibiotic coverage. Currently she is hemodynamically stable and has been afebrile in the last 24 hours. She does report having an occasional reductive cough but is unable to describe the color of the sputum. She also reports that sometimes with her coughing she feels air leaking out the drainage site to her left chest. Oxygen saturations are 96% on room air.a chest x-ray was completed this morning which demonstrates a continuing hydro- pneumothorax on the left with a reduction in the amount of air within the cavity. Objective - Vital Signs Vital signs: Vital Signs Temp 98.1 F 01/31/20 07:20 Pulse 65 01/31/20 07:20 Resp 16 01/31/20 07:20 BP 175/78 01/31/20 07:20 Pulse Ox 96 01/31/20 07:20 Intake & Output 01/30/20 01/31/20 01/31/20 18:59 06:59 18:59 Intake Total 1000 Balance 1000 Intake: Intake, IV Titration 350 Amount Magnesium Sulfate-D5w Pmx 100 1 gm In Dextrose/Water 1 100ml.bag @ 100 mls/hr IVPB Q1H [facility] Rx#: [id number] Vancomycin 1,250 mg In 250 Sodium Chloride 0.9% 250 ml @ 125 mls/hr IVPB Q8H [facility] Rx#:[id number] Oral 650 Other: Voiding Method Toilet Toilet # Voids 3 - Exam This is a 55-year-old female patient who is sitting up to the bedside edge eating her breakfast. She is in no acute distress. Oxygen saturations are 96% on room air. - Constitutional General appearance: Present: cooperative, no acute distress, thin - EENT Eyes: Present: PERRLA, normal appearance. Absent: scleral icterus ENT: Present: hearing grossly normal, normal oropharynx. Absent: thrush - Neck Details: Neck is supple, no JVD. Neck: Absent: lymphadenopathy, stridor - Respiratory Details: Lungs sounds diminished bilaterally, left greater than right. Respirations are symmetrical, nonlabored. Currently on room air with oxygen saturation 96%. No cyanosis, positive clubbing. - Cardiovascular Details: Regular rhythm and rate. S1 and S2 present, negative for S3, gallop or murmur. No edema present. - Gastrointestinal Gastrointestinal Comment(s): Abdomen is soft, nontender nondistended. Active bowel sounds present all 4 abdominal quadrants. No guarding or rigidity. No organomegaly. - Integumentary Integumentary Comment(s): Skin is warm and dry. No cyanosis is present. Fluctuant area to her left chest without redness, warm to touch. Thin foul-smelling yellowish drainage. - Neurologic Neurologic: Present: CNII-XII intact - Musculoskeletal Musculoskeletal: Present: gait normal, strength equal bilaterally - Psychiatric Psychiatric: Present: A&O x's 3, appropriate affect, intact judgment & insight - Allied health notes Allied health notes reviewed: nursing - Labs CBC & Chem 7: 01/31/20 11:15 01/31/20 10:05 Labs: Abnormal Lab Results - Last 24 Hours (Table) 01/30/20 01/30/20 01/30/20 Range/Units 10:19 11:39 16:44 Potassium 3.2 L (3.5-5.1) mmol/L POC Glucose (mg/dL) 124 H 204 H (75-99) mg/dL 01/30/20 01/31/20 Range/Units 21:04 06:54 Potassium (3.5-5.1) mmol/L POC Glucose (mg/dL) 171 H 159 H (75-99) mg/dL Microbiology - Last 24 Hours (Table) 01/29/20 09:00 Gram Stain - Preliminary Chest Wound Culture - Preliminary - Imaging and Cardiology Chest x-ray: report reviewed, image reviewed Assessment and Plan Assessment: 1. Superficial wound, draining thick foul-smelling yellowish drainage 2. History of poorly differentiated squamous cell carcinoma, status post left upper lobectomy on 12/31/2019 3. History of hypertension 4. History of hyperlipidemia 5. Previous tobacco dependence 6. Type 2 diabetes 7. History of cervical cancer status post hysterectomy 8. History of anxiety/bipolar disorder Plan: 1. Awaiting culture results and sensitivities, continue on current antibiotic regimen. 2. Local wound care and dressing changes daily and as needed. 3. Medical management and other comorbidities per primary care service. 4. Continue to shower daily. 5. We will follow the culture results, the patient may require a PICC line for IV antibiotics infusions. 6. Continue to encourage smoking cessation. 7. The patient will be scheduled for a left thoracotomy with decortication to be performed by Dr. Teddy Wilkins on 02/02/2020. 8. She will be made nothing by mouth after midnight on 02/02/2020. 9. More recommendations to follow based on patient's clinical course. Time with Patient: Less than 30
--- NOTE | 2020-01-31 12:22 | P.PN ---
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 Patient had seen cardiothoracic surgeon Dr. Wilkins yesterday, started on oral Keflex. Afebrile, WBC12, vital signs stable. Hemoglobin 8.3, sodium 131, potassium 3.1, magnesium 1.5. Alkaline phosphatase mildly elevated 134. Chest x-ray reporting known left hydropneumothorax, trachea midline, right lung clear. EKG reporting normal sinus rhythm, lateral infarct, age undetermined. Troponin negative 1. Denies chest pain, palpitations or shortness of breath. Denies lightheadedness, dizziness or focal deficits. 01/30/2020: The patient was not discharged last night as a potassium of return to normal. She does have a small leukocytosis which may be consistent with her recent surgeries and lung cancer, however a repeat is pending for this morning. I discussed the case currently with thoracic surgery and they felt that because of the white count, Keflex and discharged to be held. We discussed pulmonology consult which was done. That is in progress and they had ordered a CT chest showing an air-fluid level and dense consolidation remainder of the lung left lobe after left upper lobectomy. The margins suggested infection. Currently she's been placed on meropenem. Her wound continues to drain. Cultures are pending, but currently show no growth. He denies any significant chest pains, pressures, or shortness of breath this time. She denies any nausea or vomiting. She reports her appetite is little bit improved. She had not been eating well recently due to her cancer and treatment. Potassium this morning is 3.2. 01/31/2020: Her case was discussed with vascular surgery, they will plan a a large debridement of her chest wound in the next 48 hours. She remains on amiodarone and Elequis for anticoagulation due to atrial fibrillation. She continues on meropenem and vancomycin for her Lung empyema after robotically assisted left upper lobectomy for squamous cell carcinoma. He remains on bisoprolol for blood pressure control, but it remains somewhat elevated. Hemoglobin is dropped from 8.3 down to 6.4. A stat repeat is now 6.9. Her platelets continue to be elevated, most likely reactive, now 1044. She remains hyponatremic at 133. She denies any significant chest pains, pressures, or shortness of breath other than with exertion. She denies any significant nausea or vomiting. Staff reports she is complaining some vaginal itching and irritation. Potassium is now up to 4.2 today. Objective - Vital Signs Vital signs: Vital Signs Temp 98.1 F 01/31/20 07:20 Pulse 65 01/31/20 07:20 Resp 16 01/31/20 07:20 BP 175/78 01/31/20 07:20 Pulse Ox 96 01/31/20 07:20 Intake & Output 01/30/20 01/31/20 01/31/20 18:59 06:59 18:59 Intake Total 1000 Balance 1000 Intake: Intake, IV Titration 350 Amount Magnesium Sulfate-D5w Pmx 100 1 gm In Dextrose/Water 1 100ml.bag @ 100 mls/hr IVPB Q1H [facility] Rx#: [id number] Vancomycin 1,250 mg In 250 Sodium Chloride 0.9% 250 ml @ 125 mls/hr IVPB Q8H [facility] Rx#:[id number] Oral 650 Other: Voiding Method Toilet Toilet Toilet # Voids 3 - Exam GENERAL: Sitting up in chair, no acute distress NECK: No JVD. No thyroid enlargement. No LNs CARDIOVASCULAR: S1, S2 regular. No murmur RESPIRATION: Breath sounds less diminished. Course with no active wheezes rales or crackles at this time. CHEST WALL: Dressing is clean dry and intact at this time. ABDOMEN: Soft, nontender . No guarding. no masses palpable. No ascites, No hepatosplenomegaly.Bowel sounds heard. LEGS: No edema. no swelling. No clubbing, no cyanosis PSYCHIATRY: Alert and oriented X3, mood and affect normal. NERVOUS SYSTEM: Cranial N 2-12 grossly normal. Moves all 4 limbs. No focal deficits. Strength and sensation grossly intact.. Skin: Left lateral prior lobectomy incisional site with-serosanguineous purulent drainage, foul-smelling. - Labs CBC & Chem 7: 01/31/20 11:15 01/31/20 10:05 Labs: Abnormal Lab Results - Last 24 Hours (Table) 01/30/20 01/30/20 01/31/20 Range/Units 16:44 21:04 06:54 RBC (3.80-5.40) m/uL Hgb (11.4-16.0) gm/dL Hct (34.0-46.0) % MCV (80.0-100.0) fL MCH (25.0-35.0) pg MCHC (31.0-37.0) g/dL Plt Count (150-450) k/uL Sodium (137-145) mmol/L Carbon Dioxide (22-30) mmol/L Creatinine (0.52-1.04) mg/dL Glucose (74-99) mg/dL POC Glucose (mg/dL) 204 H 171 H 159 H (75-99) mg/dL Osmolality (280-301) mosm/kg Calcium (8.4-10.2) mg/dL 01/31/20 01/31/20 01/31/20 Range/Units 10:05 10:05 11:15 RBC 2.69 L 3.05 L (3.80-5.40) m/uL Hgb 6.4 L* D 6.9 L* (11.4-16.0) gm/dL Hct 21.5 L 24.3 L (34.0-46.0) % MCV 79.8 L 79.6 L (80.0-100.0) fL MCH 23.8 L 22.5 L (25.0-35.0) pg MCHC 29.8 L 28.3 L (31.0-37.0) g/dL Plt Count 870 H 1044 H* (150-450) k/uL Sodium 133 L (137-145) mmol/L Carbon Dioxide 31 H (22-30) mmol/L Creatinine 0.41 L (0.52-1.04) mg/dL Glucose 135 H (74-99) mg/dL POC Glucose (mg/dL) (75-99) mg/dL Osmolality 279 L (280-301) mosm/kg Calcium 7.7 L (8.4-10.2) mg/dL 01/31/20 Range/Units 11:37 RBC (3.80-5.40) m/uL Hgb (11.4-16.0) gm/dL Hct (34.0-46.0) % MCV (80.0-100.0) fL MCH (25.0-35.0) pg MCHC (31.0-37.0) g/dL Plt Count (150-450) k/uL Sodium (137-145) mmol/L Carbon Dioxide (22-30) mmol/L Creatinine (0.52-1.04) mg/dL Glucose (74-99) mg/dL POC Glucose (mg/dL) 148 H (75-99) mg/dL Osmolality (280-301) mosm/kg Calcium (8.4-10.2) mg/dL Microbiology - Last 24 Hours (Table) 01/29/20 09:00 Gram Stain - Preliminary Chest Wound Culture - Preliminary Gram Positive Bacilli Isolated Assessment and Plan (1) Hydropneumothorax Current Visit: Yes Status: Acute Priority: High Code(s): J94.8 - OTHER SPECIFIED PLEURAL CONDITIONS SNOMED Code(s): 36505195 (2) Cavitary lesion of lung Current Visit: No Status: Acute Priority: High Code(s): J98.4 - OTHER DISORDERS OF LUNG SNOMED Code(s): 729622096 (3) Hypokalemia Current Visit: Yes Status: Acute Priority: High Code(s): E87.6 - HYPOKALEMIA SNOMED Code(s): 68650497 (4) Microcytic anemia Current Visit: Yes Status: Chronic Priority: Medium Code(s): D50.9 - IRON DEFICIENCY ANEMIA, UNSPECIFIED SNOMED Code(s): 607285250 (5) COPD (chronic obstructive pulmonary disease) Current Visit: Yes Status: Chronic Priority: Medium Code(s): J44.9 - CHRONIC OBSTRUCTIVE PULMONARY DISEASE, UNSPECIFIED SNOMED Code(s): 40538215 (6) S/P lobectomy of lung Current Visit: Yes Status: Chronic Priority: Low Code(s): Z90.2 - ACQUIRED ABSENCE OF LUNG [PART OF] SNOMED Code(s): 02961288854408074 (7) Adenocarcinoma of lung Current Visit: No Status: Chronic Priority: Medium Code(s): C34.90 - MALIGNANT NEOPLASM OF UNSP PART OF UNSP BRONCHUS OR LUNG SNOMED Code(s): 742398124 (8) Essential (primary) hypertension Current Visit: No Status: Chronic Priority: Medium Code(s): I10 - ESSENTIAL (PRIMARY) HYPERTENSION SNOMED Code(s): 39224845 (9) Major depressive disorder, recurrent, moderate Current Visit: No Status: Chronic Priority: Medium Code(s): F33.1 - MAJOR DEPRESSIVE DISORDER, RECURRENT, MODERATE SNOMED Code(s): 947082545 (10) Type 2 diabetes mellitus without complications Current Visit: No Status: Chronic Priority: Medium Code(s): E11.9 - TYPE 2 DIABETES MELLITUS WITHOUT COMPLICATIONS SNOMED Code(s): 913439664 (11) Paroxysmal atrial fibrillation Current Visit: Yes Status: Chronic Priority: Medium Code(s): I48.0 - PAROXYSMAL ATRIAL FIBRILLATION SNOMED Code(s): 064276819 (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 Suspicious for SIADH related to lung carcinoma. We'll ask dietitian to see her regarding her hypoproteinemia. We'll wait on further recommendations from pulmonology, thoracic surgery. She'll continue her anticoagulation, and medications, her anticoagulation probably need to be stopped before operating room. She will be Reevaluated in the next 24 hours
[2020-01-31] MEDS ORDERED: FLUCONAZOLE 150 MG TAB PO STA (12:29)
--- NOTE | 2020-01-31 12:31 | P.PN ---
Subjective Progress Note Date: 01/31/20 Principal diagnosis: Draining of a left-sided chest superficial wound with foul-smelling yellowish fluid returned. Previous left upper lobectomy on 12/31/2019 This is a 55-year-old female patient who follows with Dr. Leroy on an outpatient basis. She has a past medical history of poorly differentiated squamous cell carcinoma, status post left upper lobectomy on 12/31/2019, hypertension, hyperlipidemia, chronic tobacco abuse, type 2 diabetes mellitus, cervical cancer status post hysterectomy, anxiety and bipolar disorder. On 01/28/2020 she had a follow-up visit with Dr. Teddy Wilkins for her pathology results of her recent left upper lobectomy. Upon exam of her surgical incisions there was a fluctuant area which was painful to touch on her left chest. Subsequently she was started on oral Keflex. Yesterday morning she developed some drainage from that incision site with the fluctuant area, leaking foul smelling yellowish fluid. Her initial lab results showed a WBC count 12.0, Hgb 8.3, neutrophils 59%, positive band neutrophil percent 24 and neutrophil numbers 9.0. A chest x-ray was completed which demonstrated a normal and the left hydropneumothorax, with no significant interval changes. She was admitted to observation to determine further treatment plans and surgical incision with consultation placed to Dr. Teddy Wilkins. On 01/30/2020 the patient was seen on the fourth floor medical surgical unit on follow-up. She is resting comfortably in bed, is in no acute distress and denies any complaints of shortness of breath. The patient does report she is having some intermittent pain to her left chest where her incision is draining. She does have a dressing which is clean and intact to her left chest which continues to drain thick foul-smelling yellowish colored drainage. Her Gram stain yesterday shows many gram-positive bacilli and she remains on Keflex for antibiotic treatment. She is hemodynamically stable, remains afebrile, although this morning her blood pressure is 176/71. Oxygen saturations are 96% on room air. Culture results from her surgical site to her left chest remains pending. The patient is seen today 01/31/2020 in follow-up on the regular medical floor. She is a resting comfortably in bed. Awake and alert in no acute distress. She denies any worsening shortness of breath. She has a dry cough. She states when she coughs she does feel like air escapes from her left chest wound. The wound continues to drain purulent drainage. There is also noted blood clots. She is maintaining O2 saturation in the 90s on room air. She's currently afebrile. Wound cultures revealing gram-positive bacilli. White count 5.8. Hemoglobin 6.9. Platelet count 1044. Sodium 133. Potassium 4.2. Creatinine 0.41. She's been initiated on vancomycin and meropenem. Anticoagulated with Eliquis. Currently in sinus rhythm. Objective - Vital Signs Vital signs: Vital Signs Temp 98.1 F 01/31/20 07:20 Pulse 65 01/31/20 07:20 Resp 16 01/31/20 07:20 BP 175/78 01/31/20 07:20 Pulse Ox 96 01/31/20 07:20 Intake & Output 01/30/20 01/31/20 01/31/20 18:59 06:59 18:59 Intake Total 1000 Balance 1000 Intake: Intake, IV Titration 350 Amount Magnesium Sulfate-D5w Pmx 100 1 gm In Dextrose/Water 1 100ml.bag @ 100 mls/hr IVPB Q1H [facility] Rx#: [id number] Vancomycin 1,250 mg In 250 Sodium Chloride 0.9% 250 ml @ 125 mls/hr IVPB Q8H [facility] Rx#:[id number] Oral 650 Other: Voiding Method Toilet Toilet Toilet # Voids 3 - Exam GENERAL EXAM: Alert, pale, very pleasant 55-year-old female patient, on room air, afebrile,, comfortable in no apparent distress. HEAD: Normocephalic. EYES: Normal reaction of pupils, equal size. NOSE: Clear with pink turbinates. THROAT: No erythema or exudates. NECK: No masses, no JVD. CHEST: Open left-sided chest wound with significant purulent drainage and blood clots. LUNGS: Equal air entry with diminished bilaterally left greater than right, few scattered rhonchi. CVS: S1 and S2 normal with no audible murmur, regular rhythm. ABDOMEN: No hepatosplenomegaly, normal bowel sounds, no guarding or rigidity. SPINE: No scoliosis or deformity SKIN: No rashes CENTRAL NERVOUS SYSTEM: No focal deficits, tone is normal in all 4 extremities. EXTREMITIES: There is no peripheral edema. No clubbing, no cyanosis. Peripheral pulses are intact. - Labs CBC & Chem 7: 01/31/20 11:15 01/31/20 10:05 Labs: Abnormal Lab Results - Last 24 Hours (Table) 01/30/20 01/30/20 01/31/20 Range/Units 16:44 21:04 06:54 RBC (3.80-5.40) m/uL Hgb (11.4-16.0) gm/dL Hct (34.0-46.0) % MCV (80.0-100.0) fL MCH (25.0-35.0) pg MCHC (31.0-37.0) g/dL Plt Count (150-450) k/uL Sodium (137-145) mmol/L Carbon Dioxide (22-30) mmol/L Creatinine (0.52-1.04) mg/dL Glucose (74-99) mg/dL POC Glucose (mg/dL) 204 H 171 H 159 H (75-99) mg/dL Osmolality (280-301) mosm/kg Calcium (8.4-10.2) mg/dL 01/31/20 01/31/20 01/31/20 Range/Units 10:05 10:05 11:15 RBC 2.69 L 3.05 L (3.80-5.40) m/uL Hgb 6.4 L* D 6.9 L* (11.4-16.0) gm/dL Hct 21.5 L 24.3 L (34.0-46.0) % MCV 79.8 L 79.6 L (80.0-100.0) fL MCH 23.8 L 22.5 L (25.0-35.0) pg MCHC 29.8 L 28.3 L (31.0-37.0) g/dL Plt Count 870 H 1044 H* (150-450) k/uL Sodium 133 L (137-145) mmol/L Carbon Dioxide 31 H (22-30) mmol/L Creatinine 0.41 L (0.52-1.04) mg/dL Glucose 135 H (74-99) mg/dL POC Glucose (mg/dL) (75-99) mg/dL Osmolality 279 L (280-301) mosm/kg Calcium 7.7 L (8.4-10.2) mg/dL 01/31/20 Range/Units 11:37 RBC (3.80-5.40) m/uL Hgb (11.4-16.0) gm/dL Hct (34.0-46.0) % MCV (80.0-100.0) fL MCH (25.0-35.0) pg MCHC (31.0-37.0) g/dL Plt Count (150-450) k/uL Sodium (137-145) mmol/L Carbon Dioxide (22-30) mmol/L Creatinine (0.52-1.04) mg/dL Glucose (74-99) mg/dL POC Glucose (mg/dL) 148 H (75-99) mg/dL Osmolality (280-301) mosm/kg Calcium (8.4-10.2) mg/dL Microbiology - Last 24 Hours (Table) 01/29/20 09:00 Gram Stain - Preliminary Chest Wound Culture - Preliminary Gram Positive Bacilli Isolated Assessment and Plan Assessment: 1 Superficial wound from previous left upper lobectomy on 12/31/2019 now draini ng thick foul-smelling yellowish return, blood clots noted as well. Cultures revealing gram-positive bacilli, currently on vancomycin and meropenem 2 Acute anemia possibly related to blood clot/pooling/hematoma the left chest 3 Recent left upper lobectomy on 12/31/2019 found to be poorly differentiated squamous cell carcinoma 4 Previous chronic tobacco dependence 5 Hypertension 6 Hyperlipidemia 7 Diabetes mellitus, type II 8 History of cervical cancer status post hysterectomy 9 History of anxiety/bipolar disorder Plan: The patient was seen and evaluated by Dr. Fernandez CT services have been consulted Plan is for left thoracotomy with decortication on 02/02/2020 Continue vancomycin and meropenem Transfuse 1 unit of packed red blood cells Continue to monitor hemoglobin Continue to keep the wound clean and dry We will continue to follow and make further recommendations based on her clinical status I, the cosigning physician, performed a history & physical examination of the patient. Lungs sounds diminished bilaterally left greater than right with crackles to scattered rhonchi in the left. Maintaining good O2 saturations in the 90s on room air. I discussed the assessment and plan of care with my nurse practitioner, Jazmín Arndt. I attest to the above note as dictated by her.
[2020-01-31] MEDS: VALSARTAN 160 MG TAB PO SCH (13:49)
[2020-01-31 16:26] LABS: Glucose,Whole Blood 209 mg/dL (75-99)
[2020-01-31 20:44] LABS: Glucose,Whole Blood 152 mg/dL (75-99)
[2020-02-01] MEDS: MEROPENEM 1 GM in SODIUM CHLORIDE 0.9% 100 ML IVPB SCH ×3 (00:35→17:06)
[2020-02-01] MEDS: ACETAMINOPHEN TAB 325 MG TAB PO PRN (00:41)
[2020-02-01] MEDS: VANCOMYCIN 1,250 MG in SODIUM CHLORIDE 0.9% 250 ML IVPB SCH ×3 (04:06→19:02)
[2020-02-01 06:49] LABS: Glucose,Whole Blood 138 mg/dL (75-99)
[2020-02-01] MEDS: metFORMIN 500 MG TAB PO SCH ×2 (07:10→17:06)
[2020-02-01] MEDS: INSULIN ASPART (NovoLOG) 100 UNIT/ML VIAL SQ SCH ×4 (07:10→21:26)
[2020-02-01] MEDS: PANTOPRAZOLE 40 MG TABLET PO SCH (07:11)
[2020-02-01] MEDS: DULoxetine HCL 60 MG CAPSULE.DR PO SCH (07:11)
[2020-02-01] MEDS: APIXABAN 5 MG TAB PO SCH (07:11)
[2020-02-01] MEDS: MAGNESIUM OXIDE 400 MG TAB PO SCH ×2 (07:11→20:26)
[2020-02-01] MEDS: AMIODARONE 200 MG TAB PO SCH (07:11)
[2020-02-01] MEDS: BISOPROLOL 5 MG TAB PO SCH (07:11)
[2020-02-01] MEDS: VALSARTAN 160 MG TAB PO SCH (07:11)
[2020-02-01 07:16] LABS: ALT 7 U/L (4-34); AST 13 U/L (14-36); African American GFR (CKD) >90 (>60 ml/min/1.73 sqM); Albumin 2.4 g/dL (3.5-5.0); Alkaline Phosphatase 100 U/L (38-126); Anion Gap 8 mmol/L; Blood Urea Nitrogen 4 mg/dL (7-17); Calcium 7.9 mg/dL (8.4-10.2); Carbon Dioxide 29 mmol/L (22-30); Chloride 98 mmol/L (98-107); Glucose 128 mg/dL (74-99); Magnesium 1.6 mg/dL (1.6-2.3); Non-African American GFR(CKD) >90 (>60 ml/min/1.73 sqM); Phosphorus 3.5 mg/dL (2.5-4.5); Potassium 3.7 mmol/L (3.5-5.1); Sodium 135 mmol/L (137-145); Total Bilirubin 0.4 mg/dL (0.2-1.3); Total Protein 5.8 g/dL (6.3-8.2)
[2020-02-01 09:34] LABS: HGB 8.2 gm/dL (11.4-16.0); Hypochromasia Marked; MCH 24.9 pg (25.0-35.0); MCHC 30.5 g/dL (31.0-37.0); MCV 81.6 fL (80.0-100.0); Mean Platelet Volume 6.8; Platelet Count 862 k/uL (150-450); Poikilocytosis Marked; RDW 15.5 % (11.5-15.5); WBC 4.6 k/uL (3.8-10.6)
[2020-02-01] MEDS ORDERED: SCOPOLAMINE 1.5MG/72HR PATCH TRANSDERM ONE (09:50)
[2020-02-01] MEDS ORDERED: ONDANSETRON 4 MG/2 ML VIAL IVP ONE (09:50)
[2020-02-01] MEDS ORDERED: DEXAMETHASONE SOD PHOSPHATE 10 MG/ML 1 ML VIAL IV ONE (09:50)
[2020-02-01] MEDS ORDERED: HYDROmorphone 0.5 MG/0.5 ML SYRINGE IVP PRN (09:50)
[2020-02-01 10:22] LABS: Ferritin 146.1 ng/mL (10.0-291.0)
[2020-02-01 10:24] LABS: Lymphocytes # (M) 0.55 k/uL (1.0-4.8); Monocytes # (M) 0.32 k/uL (0-1.0); Neutrophils # (M) 3.73 k/uL (1.3-7.7); Neutrophils % (M) 81 %; Nucleated Red Blood Cells 0 /100 WBC (0-0); Total Cells Counted 100
[2020-02-01 10:25] LABS: Anisocytosis (M) Present
--- NOTE | 2020-02-01 11:01 | P.PN ---
Subjective Progress Note Date: 02/01/20 This is a 55-year-old female patient who follows with Dr. Leroy on an outpatient basis. She has a past medical history of poorly differentiated squamous cell carcinoma, status post left upper lobectomy on 12/31/2019, hypertension, hyperlipidemia, chronic tobacco abuse, type 2 diabetes mellitus, cervical cancer status post hysterectomy, anxiety and bipolar disorder. On 01/28/2020 she had a follow-up visit with Dr. Teddy Wilkins for her pathology results of her recent left upper lobectomy. Upon exam of her surgical incisions there was a fluctuant area which was painful to touch on her left chest. Subsequently she was started on oral Keflex. Yesterday morning she developed some drainage from that incision site with the fluctuant area, leaking foul smelling yellowish fluid. Her initial lab results showed a WBC count 12.0, Hgb 8.3, neutrophils 59%, positive band neutrophil percent 24 and neutrophil numbers 9.0. A chest x-ray was completed which demonstrated a normal and the left hydropneumothorax, with no significant interval changes. She was admitted to observation to determine further treatment plans and surgical incision with consultation placed to Dr. Teddy Wilkins. On 01/30/2020 the patient was seen on the fourth floor medical surgical unit on follow-up. She is resting comfortably in bed, is in no acute distress and denies any complaints of shortness of breath. The patient does report she is having some intermittent pain to her left chest where her incision is draining. She does have a dressing which is clean and intact to her left chest which continues to drain thick foul-smelling yellowish colored drainage. Her Gram stain yesterday shows many gram-positive bacilli and she remains on Keflex for antibiotic treatment. She is hemodynamically stable, remains afebrile, although this morning her blood pressure is 176/71. Oxygen saturations are 96% on room air. Culture results from her surgical site to her left chest remains pending. The patient is seen today 01/31/2020 in follow-up on the regular medical floor. She is a resting comfortably in bed. Awake and alert in no acute distress. She denies any worsening shortness of breath. She has a dry cough. She states when she coughs she does feel like air escapes from her left chest wound. The wound continues to drain purulent drainage. There is also noted blood clots. She is maintaining O2 saturation in the 90s on room air. She's currently afebrile. Wound cultures revealing gram-positive bacilli. White count 5.8. Hemoglobin 6.9. Platelet count 1044. Sodium 133. Potassium 4.2. Creatinine 0.41. She's been initiated on vancomycin and meropenem. Anticoagulated with Eliquis. Currently in sinus rhythm. On today's evaluation of 02/01/2020, the patient is laying comfortably in bed. No signs of any significant respiratory distress pH is still draining purulent stuff from the left chest area and the dressing is stuffed and soaked. The culture is positive for gram possible solicitous and the patient remains on vancomycin. She is also on IV Merrem. She is hemodynamically stable. She is off the Eliquis in preparation for surgical thoracoscopic evaluation for empyema. The white cell count is at 4.6. Hemoglobin stable at 8.2. She is in a sinus rhythm. She did have a bout of proximal atrial fibrillation following her lung surgery and she's been in sinus since. No altered mentation. No other significant events overnight. Objective - Vital Signs Vital signs: Vital Signs Temp 98.3 F 02/01/20 07:00 Pulse 66 02/01/20 07:00 Resp 16 02/01/20 07:00 BP 186/79 02/01/20 07:00 Pulse Ox 97 02/01/20 07:00 Intake & Output 01/31/20 02/01/20 02/01/20 18:59 06:59 18:59 Intake Total 1450 310 Balance 1450 310 Weight 61.235 kg Intake: Intake, IV Titration 350 Amount Meropenem 1 gm In Sodium 100 Chloride 0.9% 100 ml @ 200 mls/hr IVPB Q8HR [facility] Rx#:[id number] Vancomycin 1,250 mg In 250 Sodium Chloride 0.9% 250 ml @ 125 mls/hr IVPB Q8H [facility] Rx#:[id number] Oral 1100 Blood Product 0 310 Rc As-1 Unit 0 310 [id number] Other: Voiding Method Toilet Toilet # Voids 4 - Exam GENERAL EXAM: Alert, pale, very pleasant 55-year-old female patient, on room air, afebrile,, comfortable in no apparent distress. HEAD: Normocephalic. EYES: Normal reaction of pupils, equal size. NOSE: Clear with pink turbinates. THROAT: No erythema or exudates. NECK: No masses, no JVD. CHEST: Open left-sided chest wound with significant purulent drainage and blood clots. LUNGS: Equal air entry with diminished bilaterally left greater than right, few scattered rhonchi. CVS: S1 and S2 normal with no audible murmur, regular rhythm. ABDOMEN: No hepatosplenomegaly, normal bowel sounds, no guarding or rigidity. SPINE: No scoliosis or deformity SKIN: No rashes CENTRAL NERVOUS SYSTEM: No focal deficits, tone is normal in all 4 extremities. EXTREMITIES: There is no peripheral edema. No clubbing, no cyanosis. Peripheral pulses are intact. - Labs CBC & Chem 7: 02/01/20 06:12 02/01/20 06:12 Labs: Abnormal Lab Results - Last 24 Hours (Table) 01/31/20 01/31/20 01/31/20 Range/Units 10:05 11:15 11:37 RBC 3.05 L (3.80-5.40) m/uL Hgb 6.9 L* (11.4-16.0) gm/dL Hct 24.3 L (34.0-46.0) % MCV 79.6 L (80.0-100.0) fL MCH 22.5 L (25.0-35.0) pg MCHC 28.3 L (31.0-37.0) g/dL Plt Count 1044 H* (150-450) k/uL Lymphocytes # (Manual) (1.0-4.8) k/uL Sodium (137-145) mmol/L BUN (7-17) mg/dL Creatinine (0.52-1.04) mg/dL Glucose (74-99) mg/dL POC Glucose (mg/dL) 148 H (75-99) mg/dL Osmolality 279 L (280-301) mosm/kg Calcium (8.4-10.2) mg/dL AST (14-36) U/L Total Protein (6.3-8.2) g/dL Albumin (3.5-5.0) g/dL Crossmatch 01/31/20 01/31/20 01/31/20 Range/Units 12:39 16:24 20:42 RBC (3.80-5.40) m/uL Hgb (11.4-16.0) gm/dL Hct (34.0-46.0) % MCV (80.0-100.0) fL MCH (25.0-35.0) pg MCHC (31.0-37.0) g/dL Plt Count (150-450) k/uL Lymphocytes # (Manual) (1.0-4.8) k/uL Sodium (137-145) mmol/L BUN (7-17) mg/dL Creatinine (0.52-1.04) mg/dL Glucose (74-99) mg/dL POC Glucose (mg/dL) 209 H 152 H (75-99) mg/dL Osmolality (280-301) mosm/kg Calcium (8.4-10.2) mg/dL AST (14-36) U/L Total Protein (6.3-8.2) g/dL Albumin (3.5-5.0) g/dL Crossmatch See Detail 02/01/20 02/01/20 02/01/20 Range/Units 06:12 06:12 06:48 RBC 3.30 L (3.80-5.40) m/uL Hgb 8.2 L (11.4-16.0) gm/dL Hct 27.0 L (34.0-46.0) % MCV (80.0-100.0) fL MCH 24.9 L (25.0-35.0) pg MCHC 30.5 L (31.0-37.0) g/dL Plt Count 862 H (150-450) k/uL Lymphocytes # (Manual) 0.55 L (1.0-4.8) k/uL Sodium 135 L (137-145) mmol/L BUN 4 L (7-17) mg/dL Creatinine 0.44 L (0.52-1.04) mg/dL Glucose 128 H (74-99) mg/dL POC Glucose (mg/dL) 138 H (75-99) mg/dL Osmolality (280-301) mosm/kg Calcium 7.9 L (8.4-10.2) mg/dL AST 13 L (14-36) U/L Total Protein 5.8 L (6.3-8.2) g/dL Albumin 2.4 L (3.5-5.0) g/dL Crossmatch Microbiology - Last 24 Hours (Table) 01/29/20 09:00 Gram Stain - Preliminary Chest Wound Culture - Preliminary Gram Positive Bacilli Isolated Assessment and Plan Plan: 1 left lung empyema and the patient is post left upper lobectomy on 12/31/2019 Cultures revealing gram-positive bacilli, currently on vancomycin and meropenem, awaiting thoracoscopy/possible thoracotomy for empyema. 2 Acute anemia possibly related to blood clot/pooling/hematoma the left chest 3 Recent left upper lobectomy on 12/31/2019 found to be poorly differentiated squamous cell carcinoma, the patient has T4 N0 M0 disease 4 Previous chronic tobacco dependence 5 Hypertension 6 Hyperlipidemia 7 Diabetes mellitus, type II 8 History of cervical cancer status post hysterectomy 9 History of anxiety/bipolar disorder Plan Stop Eliquis Provide the patient incentive spirometer Hemoglobin is stable and there is no need for further transfusion Daily dressing change Thoracoscopy possible thoracotomy tomorrow for empyema Keep same antibiotic coverage for now
[2020-02-01 11:26] LABS: % Iron Saturation 6.73 (12.00-45.00); Iron 15 ug/dL (50-170); Total Iron Binding Capacity 223 ug/dL (228-460)
[2020-02-01 11:39] LABS: Glucose,Whole Blood 203 mg/dL (75-99)
--- NOTE | 2020-02-01 12:05 | P.PN ---
Subjective Progress Note Date: 02/01/20 Principal diagnosis: This is a 55-year-old female patient who follows with Dr. Leroy on an outpatient basis. She has a past medical history of poorly differentiated squamous cell carcinoma, status post left upper lobectomy on 12/31/2019, hypertension, hyperlipidemia, chronic tobacco abuse, type 2 diabetes mellitus, cervical cancer status post hysterectomy, anxiety and bipolar disorder. On 01/28/2020 she had a follow-up visit with Dr. Teddy Wilkins for her pathology results of her recent left upper lobectomy. Upon exam of her surgical incisions there was a fluctuant area which was painful to touch on her left chest. Subsequently she was started on oral Keflex. Yesterday morning she developed some drainage from that incision site with the fluctuant area, leaking foul smelling yellowish fluid. Her initial lab results showed a WBC count 12.0, Hgb 8.3, neutrophils 59%, positive band neutrophil percent 24 and neutrophil numbers 9.0. A chest x-ray was completed which demonstrated a normal and the left hydropneumothorax, with no significant interval changes. She was admitted to observation to determine further treatment plans and surgical incision with consultation placed to Dr. Teddy Wilkins. On 01/30/2020 the patient was seen on the fourth floor medical surgical unit on follow-up. She is resting comfortably in bed, is in no acute distress and denies any complaints of shortness of breath. The patient does report she is having some intermittent pain to her left chest where her incision is draining. She does have a dressing which is clean and intact to her left chest which continues to drain thick foul-smelling yellowish colored drainage. Her Gram stain yesterday shows many gram-positive bacilli and she remains on Keflex for antibiotic treatment. She is hemodynamically stable, remains afebrile, although this morning her blood pressure is 176/71. Oxygen saturations are 96% on room air. Culture results from her surgical site to her left chest remains pending. On 01/31/2020 the patient was seen on the fourth floor medical surgical unit on follow-up. Patient is sitting up to the bedside edge eating her breakfast. She reports she is feeling somewhat better today. Denies any complaints of shortness of breath or pain. The drainage to her left chest wall incision site seems to have improved today. Preliminary microbiology aerobic wound culture showing no growth after 24 hours. She was started on vancomycin and meropenem yesterday for IV antibiotic coverage. Currently she is hemodynamically stable and has been afebrile in the last 24 hours. She does report having an occasional reductive cough but is unable to describe the color of the sputum. She also reports that sometimes with her coughing she feels air leaking out the drainage site to her left chest. Oxygen saturations are 96% on room air.a chest x-ray was completed this morning which demonstrates a continuing hydro- pneumothorax on the left with a reduction in the amount of air within the cavity. On 02/01/2020 the patient was seen on the fourth floor medical surgical unit in follow-up. The patient is sitting up in bed, she is in no acute distress. Denies any complaints of pain or shortness of breath at this time and reports that she is starting to feel better on a daily basis. She has been afebrile the last 24 hours, oxygen saturations are 97% on room air. She is demonstrating good use her for incentive spirometry and is achieving 1000 mL. Lab results today show a WBC count 7.9, hemoglobin 8.2, platelets 375, BUN 8, creatinine 0.73. She was tested for COVID 19 on admission which was negative. Dressing to her left chest draining incision site with scant thin yellowish serosanguineous drainage. Dressing was changed at this time. She received 1 unit of PRBC transfusion yesterday for hemoglobin of 6.9. Currently she is hemodynamically stable. Denies any further coughing or sputum production. Wound culture from left chest shows many gram-positive bacilli and she remains on meropenem and vancomycin for antibiotic coverage. Objective - Vital Signs Vital signs: Vital Signs Temp 98.3 F 02/01/20 07:00 Pulse 66 02/01/20 07:00 Resp 16 02/01/20 07:00 BP 186/79 02/01/20 07:00 Pulse Ox 97 02/01/20 07:00 Intake & Output 01/31/20 02/01/20 02/01/20 18:59 06:59 18:59 Intake Total 1450 310 Balance 1450 310 Weight 61.235 kg Intake: Intake, IV Titration 350 Amount Meropenem 1 gm In Sodium 100 Chloride 0.9% 100 ml @ 200 mls/hr IVPB Q8HR [facility] Rx#:[id number] Vancomycin 1,250 mg In 250 Sodium Chloride 0.9% 250 ml @ 125 mls/hr IVPB Q8H [facility] Rx#:[id number] Oral 1100 Blood Product 0 310 Rc As-1 Unit 0 310 [id number] Other: Voiding Method Toilet Toilet # Voids 4 - Exam This is a 55-year-old female patient who is sitting up to the bedside edge eating her breakfast. She is in no acute distress. Oxygen saturations are 97% on room air. - Constitutional General appearance: Present: cooperative, no acute distress, thin - EENT Eyes: Present: PERRLA, normal appearance. Absent: scleral icterus ENT: Present: hearing grossly normal - Neck Details: Neck is supple, no lymphadenopathy. No JVD. - Respiratory Details: Lungs sounds diminished bilaterally, left greater than right. Respirations are symmetrical, nonlabored. Currently on room air with oxygen saturation 96%. No cyanosis, positive clubbing. - Cardiovascular Details: Regular rhythm and rate. S1 and S2 present, negative for S3, gallop or murmur. No edema. - Gastrointestinal Gastrointestinal Comment(s): Abdomen is soft, nontender nondistended. Active bowel sounds present all 4 abdominal quadrants. No guarding or rigidity. No organomegaly. - Integumentary Integumentary Comment(s): Skin is warm and dry. No cyanosis is present. Fluctuant area to her left chest without redness, warm to touch. Scant thin foul-smelling yellowish drainage. - Neurologic Neurologic: Present: CNII-XII intact - Musculoskeletal Musculoskeletal: Present: gait normal, strength equal bilaterally - Psychiatric Psychiatric: Present: A&O x's 3, appropriate affect, intact judgment & insight - Allied health notes Allied health notes reviewed: nursing - Labs CBC & Chem 7: 02/01/20 06:12 02/01/20 06:12 Labs: Abnormal Lab Results - Last 24 Hours (Table) 01/31/20 01/31/20 01/31/20 Range/Units 10:05 12:39 16:24 RBC (3.80-5.40) m/uL Hgb (11.4-16.0) gm/dL Hct (34.0-46.0) % MCH (25.0-35.0) pg MCHC (31.0-37.0) g/dL Plt Count (150-450) k/uL Lymphocytes # (Manual) (1.0-4.8) k/uL Sodium (137-145) mmol/L BUN (7-17) mg/dL Creatinine (0.52-1.04) mg/dL Glucose (74-99) mg/dL POC Glucose (mg/dL) 209 H (75-99) mg/dL Calcium (8.4-10.2) mg/dL Iron 15 L (50-170) ug/dL TIBC 223 L (228-460) ug/dL % Saturation 6.73 L (12.00-45.00) AST (14-36) U/L Total Protein (6.3-8.2) g/dL Albumin (3.5-5.0) g/dL Crossmatch See Detail 01/31/20 02/01/20 02/01/20 Range/Units 20:42 06:12 06:12 RBC 3.30 L (3.80-5.40) m/uL Hgb 8.2 L (11.4-16.0) gm/dL Hct 27.0 L (34.0-46.0) % MCH 24.9 L (25.0-35.0) pg MCHC 30.5 L (31.0-37.0) g/dL Plt Count 862 H (150-450) k/uL Lymphocytes # (Manual) 0.55 L (1.0-4.8) k/uL Sodium 135 L (137-145) mmol/L BUN 4 L (7-17) mg/dL Creatinine 0.44 L (0.52-1.04) mg/dL Glucose 128 H (74-99) mg/dL POC Glucose (mg/dL) 152 H (75-99) mg/dL Calcium 7.9 L (8.4-10.2) mg/dL Iron (50-170) ug/dL TIBC (228-460) ug/dL % Saturation (12.00-45.00) AST 13 L (14-36) U/L Total Protein 5.8 L (6.3-8.2) g/dL Albumin 2.4 L (3.5-5.0) g/dL Crossmatch 02/01/20 02/01/20 Range/Units 06:48 11:37 RBC (3.80-5.40) m/uL Hgb (11.4-16.0) gm/dL Hct (34.0-46.0) % MCH (25.0-35.0) pg MCHC (31.0-37.0) g/dL Plt Count (150-450) k/uL Lymphocytes # (Manual) (1.0-4.8) k/uL Sodium (137-145) mmol/L BUN (7-17) mg/dL Creatinine (0.52-1.04) mg/dL Glucose (74-99) mg/dL POC Glucose (mg/dL) 138 H 203 H (75-99) mg/dL Calcium (8.4-10.2) mg/dL Iron (50-170) ug/dL TIBC (228-460) ug/dL % Saturation (12.00-45.00) AST (14-36) U/L Total Protein (6.3-8.2) g/dL Albumin (3.5-5.0) g/dL Crossmatch Microbiology - Last 24 Hours (Table) 01/29/20 09:00 Gram Stain - Preliminary Chest Wound Culture - Preliminary Gram Positive Bacilli Isolated Assessment and Plan Assessment: 1. Superficial wound, draining thick foul-smelling yellowish drainage 2. History of poorly differentiated squamous cell carcinoma, status post left upper lobectomy on 12/31/2019 3. History of hypertension 4. History of hyperlipidemia 5. Previous tobacco dependence 6. Type 2 diabetes 7. History of cervical cancer status post hysterectomy 8. History of anxiety/bipolar disorder Plan: 1. Awaiting final culture results and sensitivities, continue on current antibiotic regimen. Preliminary results showing gram-positive bacilli. 2. Local wound care and dressing changes daily and as needed. 3. Medical management and other comorbidities per primary care service. 4. Continue to shower daily. 5. We will follow the culture results, the patient may require a PICC line for outpatient IV antibiotics infusions. 6. Continue to encourage smoking cessation. 7. The patient is scheduled for a left thoracotomy with decortication to be performed by Dr. Teddy Wilkins on 02/02/2020. 8. Nothing by mouth after midnight on 02/02/2020. 9. Hold Eliquis until after her thoracotomy with decortication procedure. 10. More recommendations to follow based on patient's clinical course. Time with Patient: Less than 30
[2020-02-01 12:18] LABS: Hemoglobin A1C 7.4 % (4.0-6.0)
[2020-02-01 16:51] LABS: Glucose,Whole Blood 175 mg/dL (75-99)
--- NOTE | 2020-02-01 17:08 | P.PN ---
Subjective Progress Note Date: 02/01/20 This is a 55-year-old female, nicotine dependent, 40 year smoking history, quit in October 2019, with recently diagnosed -poorly differentiated squamous cell CA left lung, status post left upper lobectomy on 12/31/2019, presented to the ER with complaints of increased foul-smelling draining from prior lobectomy incision sites. Patient had seen cardiothoracic surgeon Dr. Wilkins yesterday, started on oral Keflex. Afebrile, WBC12, vital signs stable. Hemoglobin 8.3, sodium 131, potassium 3.1, magnesium 1.5. Alkaline phosphatase mildly elevated 134. Chest x-ray reporting known left hydropneumothorax, trachea midline, right lung clear. EKG reporting normal sinus rhythm, lateral infarct, age undet ermined. Troponin negative 1. Denies chest pain, palpitations or shortness of breath. Denies lightheadedness, dizziness or focal deficits. 01/30/2020: The patient was not discharged last night as a potassium of return to normal. She does have a small leukocytosis which may be consistent with her recent surgeries and lung cancer, however a repeat is pending for this morning. I discussed the case currently with thoracic surgery and they felt that because of the white count, Keflex and discharged to be held. We discussed pulmonology consult which was done. That is in progress and they had ordered a CT chest showing an air-fluid level and dense consolidation remainder of the lung left lo be after left upper lobectomy. The margins suggested infection. Currently she's been placed on meropenem. Her wound continues to drain. Cultures are pending, but currently show no growth. He denies any significant chest pains, pressures, or shortness of breath this time. She denies any nausea or vomiting. She reports her appetite is little bit improved. She had not been eating well recently due to her cancer and treatment. Potassium this morning is 3.2. 01/31/2020: Her case was discussed with vascular surgery, they will plan a a large debridement of her chest wound in the next 48 hours. She remains on amiodarone and Elequis for anticoagulation due to atrial fibrillation. She continues on meropenem and vancomycin for her Lung empyema after robotically assisted left upper lobectomy for squamous cell carcinoma. He remains on bisoprolol for blood pressure control, but it remains somewhat elevated. Hemoglobin is dropped from 8.3 down to 6.4. A stat repeat is now 6.9. Her plat elets continue to be elevated, most likely reactive, now 1044. She remains hyponatremic at 133. She denies any significant chest pains, pressures, or shortness of breath other than with exertion. She denies any significant nausea or vomiting. Staff reports she is complaining some vaginal itching and irritation. Potassium is now up to 4.2 today. 02/01/2020 Wound cultures reporting gram-positive bacilli isolated. Maintained on vancomycin, Merrem. Continues having purulent drainage from lateral left chest incision site. Tested negative for coronavirus. Afebrile, WBC WNL. Hemoglobin 8.2. Telemetry sinus rhythm. Denies chest pain, palpitations. Objective - Vital Signs Vital signs: Vital Signs Temp 98.2 F 02/01/20 15:00 Pulse 61 02/01/20 15:00 Resp 16 02/01/20 15:00 BP 158/82 02/01/20 15:00 Pulse Ox 97 02/01/20 15:00 Intake & Output 01/31/20 02/01/20 02/01/20 18:59 06:59 18:59 Intake Total 1450 310 Balance 1450 310 Weight 61.235 kg Intake: Intake, IV Titration 350 Amount Meropenem 1 gm In Sodium 100 Chloride 0.9% 100 ml @ 200 mls/hr IVPB Q8HR [facility] Rx#:[id number] Vancomycin 1,250 mg In 250 Sodium Chloride 0.9% 250 ml @ 125 mls/hr IVPB Q8H [facility] Rx#:[id number] Oral 1100 Blood Product 0 310 Rc As-1 Unit 0 310 [id number] Other: Voiding Method Toilet Toilet # Voids 4 - Exam GENERAL: Sitting up in chair, no acute distress NECK: No JVD. No thyroid enlargement. No LNs CARDIOVASCULAR: S1, S2 regular. No murmur RESPIRATION: Breath sounds diminished. Positive rhonchi. ABDOMEN: Soft, nontender . No guarding. no masses palpable. No ascites, No hepatosplenomegaly.Bowel sounds heard. LEGS: No edema. no swelling. No clubbing, no cyanosis PSYCHIATRY: Alert and oriented X3, mood and affect normal. NERVOUS SYSTEM: Cranial N 2-12 grossly normal. Moves all 4 limbs. No focal deficits. Strength and sensation grossly intact.. Skin: Left lateral prior lobectomy incisional site with-serosanguineous purulent drainage, foul-smelling. - Labs CBC & Chem 7: 02/01/20 06:12 02/01/20 06:12 Labs: Abnormal Lab Results - Last 24 Hours (Table) 01/31/20 01/31/20 01/31/20 Range/Units 10:05 10:05 12:39 RBC (3.80-5.40) m/uL Hgb (11.4-16.0) gm/dL Hct (34.0-46.0) % MCH (25.0-35.0) pg MCHC (31.0-37.0) g/dL Plt Count (150-450) k/uL Lymphocytes # (Manual) (1.0-4.8) k/uL Sodium (137-145) mmol/L BUN (7-17) mg/dL Creatinine (0.52-1.04) mg/dL Glucose (74-99) mg/dL POC Glucose (mg/dL) (75-99) mg/dL Hemoglobin A1c 7.4 H (4.0-6.0) % Calcium (8.4-10.2) mg/dL Iron 15 L (50-170) ug/dL TIBC 223 L (228-460) ug/dL % Saturation 6.73 L (12.00-45.00) AST (14-36) U/L Total Protein (6.3-8.2) g/dL Albumin (3.5-5.0) g/dL Crossmatch See Detail 01/31/20 02/01/20 02/01/20 Range/Units 20:42 06:12 06:12 RBC 3.30 L (3.80-5.40) m/uL Hgb 8.2 L (11.4-16.0) gm/dL Hct 27.0 L (34.0-46.0) % MCH 24.9 L (25.0-35.0) pg MCHC 30.5 L (31.0-37.0) g/dL Plt Count 862 H (150-450) k/uL Lymphocytes # (Manual) 0.55 L (1.0-4.8) k/uL Sodium 135 L (137-145) mmol/L BUN 4 L (7-17) mg/dL Creatinine 0.44 L (0.52-1.04) mg/dL Glucose 128 H (74-99) mg/dL POC Glucose (mg/dL) 152 H (75-99) mg/dL Hemoglobin A1c (4.0-6.0) % Calcium 7.9 L (8.4-10.2) mg/dL Iron (50-170) ug/dL TIBC (228-460) ug/dL % Saturation (12.00-45.00) AST 13 L (14-36) U/L Total Protein 5.8 L (6.3-8.2) g/dL Albumin 2.4 L (3.5-5.0) g/dL Crossmatch 02/01/20 02/01/20 Range/Units 06:48 11:37 RBC (3.80-5.40) m/uL Hgb (11.4-16.0) gm/dL Hct (34.0-46.0) % MCH (25.0-35.0) pg MCHC (31.0-37.0) g/dL Plt Count (150-450) k/uL Lymphocytes # (Manual) (1.0-4.8) k/uL Sodium (137-145) mmol/L BUN (7-17) mg/dL Creatinine (0.52-1.04) mg/dL Glucose (74-99) mg/dL POC Glucose (mg/dL) 138 H 203 H (75-99) mg/dL Hemoglobin A1c (4.0-6.0) % Calcium (8.4-10.2) mg/dL Iron (50-170) ug/dL TIBC (228-460) ug/dL % Saturation (12.00-45.00) AST (14-36) U/L Total Protein (6.3-8.2) g/dL Albumin (3.5-5.0) g/dL Crossmatch Microbiology - Last 24 Hours (Table) 01/29/20 09:00 Gram Stain - Final Chest Wound Culture - Final Gram Positive Bacilli Isolated Assessment and Plan Assessment: (1) Hydropneumothorax Current Visit: Yes Status: Acute Priority: High Code(s): J94.8 - OTHER SPECIFIED PLEURAL CONDITIONS SNOMED Code(s): 75759952 (2) Cavitary lesion of lung Current Visit: No Status: Acute Priority: High Code(s): J98.4 - OTHER DISORDERS OF LUNG SNOMED Code(s): 259327212 (3) Hypokalemia Current Visit: Yes Status: Acute Priority: High Code(s): E87.6 - HYPOKALEMIA SNOMED Code(s)16379875 (4) Microcytic anemia Current Visit: Yes Status: Chronic Priority: Medium Code(s): D50.9 - IRON DEFICIENCY ANEMIA, UNSPECIFIED SNOMED Code(s): 880989292 (5)Poorly differentiated squamous cell CA, left upper lobe Current Visit: Yes Status: Acute Code(s): C34.90 - MALIGNANT NEOPLASM OF UNSP PART OF UNSP BRONCHUS OR LUNG SNOMED Code(s): 866979342 (6) S/P lobectomy of lung with draining from prior recent left upper lobectomy incisional site, cultures reporting gram-positive bacilli isolated. Current Visit: Yes Status: Chronic Priority: Low Code(s): Z90.2 - ACQUIRED ABSENCE OF LUNG [PART OF] SNOMED Code(s): 20596196121052083 (7) Essential (primary) hypertension Current Visit: No Status: Acute Code(s): I10 - ESSENTIAL (PRIMARY) HYPERTENSION SNOMED Code(s): 99137442 (8) Hyponatremia Current Visit: Yes Status: Acute Code(s): E87.1 - HYPO-OSMOLALITY AND HYPONATREMIA SNOMED Code(s): 82778540 (9)Major depressive disorder, recurrent, moderate Current Visit: No Status: Acute Code(s): F33.1 - MAJOR DEPRESSIVE DISORDER, RECURRENT, MODERATE SNOMED Code(s): 310607115 (10)Type 2 diabetes mellitus without complications Current Visit: No Status: Acute Code(s): E11.9 - TYPE 2 DIABETES MELLITUS WITHOUT COMPLICATIONS SNOMED Code(s): 103993448 (11) Fibromyalgia Current Visit: Yes Status: Acute Code(s): M79.7 - FIBROMYALGIA SNOMED Code(s): 726250431 (12) hypomagnesemia (13)Possible SIADH related to Lung CA (14) Paroxysmal atrial fibrillation Current Visit: Yes Status: Chronic Priority: Medium Code(s): I48.0 - PAROXYSMAL ATRIAL FIBRILLATION SNOMED Code(s): 900035086 (15) hypoproteinemia Plan: Continue on current medication regime ,monitoring and symptomatic treatment. Eliquis on hold for upcoming procedure tomorrow. Maintain on vancomycin, Merrem. Aggressive pulmonary toileting with incentive spirometer reinforced. The impression and plan of care has been dictated as directed. : I performed a history and examination of this patient, discussed the same with the dictator. I agree with the dictator's note ,documented as a scribe. Any additional findings or plans will be noted.
[2020-02-01] MEDS: hydrALAZINE HCL 25 MG TAB PO SCH ×2 (20:26→20:27)
[2020-02-01 20:52] LABS: Glucose,Whole Blood 111 mg/dL (75-99)
[2020-02-02] MEDS: VANCOMYCIN 1,250 MG in SODIUM CHLORIDE 0.9% 250 ML IVPB SCH ×3 (02:52→21:18)
[2020-02-02 06:51] LABS: Glucose,Whole Blood 130 mg/dL (75-99)
[2020-02-02] MEDS: INSULIN ASPART (NovoLOG) 100 UNIT/ML VIAL SQ SCH ×4 (07:18→21:13)
[2020-02-02] MEDS: metFORMIN 500 MG TAB PO SCH ×2 (07:18→17:14)
[2020-02-02] MEDS: BISOPROLOL 5 MG TAB PO SCH (08:06)
[2020-02-02] MEDS: MAGNESIUM OXIDE 400 MG TAB PO SCH ×2 (08:06→21:18)
[2020-02-02] MEDS: MEROPENEM 1 GM in SODIUM CHLORIDE 0.9% 100 ML IVPB SCH ×4 (08:06→17:13)
[2020-02-02] MEDS: DULoxetine HCL 60 MG CAPSULE.DR PO SCH (08:06)
[2020-02-02] MEDS: AMIODARONE 200 MG TAB PO SCH (08:06)
[2020-02-02] MEDS: VALSARTAN 160 MG TAB PO SCH (08:06)
[2020-02-02] MEDS: PANTOPRAZOLE 40 MG TABLET PO SCH (08:06)
[2020-02-02] MEDS: hydrALAZINE HCL 25 MG TAB PO SCH ×4 (08:06→21:18)
[2020-02-02 09:12] LABS: Anisocytosis Slight; HCT 33.5 % (34.0-46.0); HGB 10.1 gm/dL (11.4-16.0); Hypochromasia Marked; MCH 24.7 pg (25.0-35.0); MCHC 30.1 g/dL (31.0-37.0); Mean Platelet Volume 6.8; Platelet Count 962 k/uL (150-450); Poikilocytosis Moderate; RBC 4.09 m/uL (3.80-5.40); RDW 17.1 % (11.5-15.5)
[2020-02-02 10:47] LABS: Metamyelocytes # (M) 0.09 k/uL (0); Metamyelocytes % 1 %; Monocytes # (M) 0.99 k/uL (0-1.0); Nucleated Red Blood Cells 0 /100 WBC (0-0)
[2020-02-02 10:48] LABS: Basophils # (M) 0.09 k/uL (0-0.2); Eosinophils # (M) 0.09 k/uL (0-0.7); Lymphocytes # (M) 1.44 k/uL (1.0-4.8); Neutrophils # (M) 6.48 k/uL (1.3-7.7); Neutrophils % (M) 72 %; Total Cells Counted 200
[2020-02-02 10:49] LABS: Polychromasia Present
[2020-02-02 11:44] LABS: Glucose,Whole Blood 300 mg/dL (75-99)
--- NOTE | 2020-02-02 12:07 | P.PN ---
Subjective Progress Note Date: 02/02/20 Principal diagnosis: This is a 55-year-old female patient who follows with Dr. Leroy on an outpatient basis. She has a past medical history of poorly differentiated squamous cell carcinoma, status post left upper lobectomy on 12/31/2019, hypertension, hyperlipidemia, chronic tobacco abuse, type 2 diabetes mellitus, cervical cancer status post hysterectomy, anxiety and bipolar disorder. On 01/28/2020 she had a follow-up visit with Dr. Teddy Wilkins for her pathology results of her recent left upper lobectomy. Upon exam of her surgical incisions there was a fluctuant area which was painful to touch on her left chest. Subsequently she was started on oral Keflex. Yesterday morning she developed some drainage from that incision site with the fluctuant area, leaking foul smelling yellowish fluid. Her initial lab results showed a WBC count 12.0, Hgb 8.3, neutrophils 59%, positive band neutrophil percent 24 and neutrophil numbers 9.0. A chest x-ray was completed which demonstrated a normal and the left hydropneumothorax, with no significant interval changes. She was admitted to observation to determine further treatment plans and surgical incision with consultation placed to Dr. Teddy Wilkins. On 01/30/2020 the patient was seen on the fourth floor medical surgical unit on follow-up. She is resting comfortably in bed, is in no acute distress and denies any complaints of shortness of breath. The patient does report she is having some intermittent pain to her left chest where her incision is draining. She does have a dressing which is clean and intact to her left chest which continues to drain thick foul-smelling yellowish colored drainage. Her Gram stain yesterday shows many gram-positive bacilli and she remains on Keflex for antibiotic treatment. She is hemodynamically stable, remains afebrile, although this morning her blood pressure is 176/71. Oxygen saturations are 96% on room air. Culture results from her surgical site to her left chest remains pending. On 01/31/2020 the patient was seen on the fourth floor medical surgical unit on follow-up. Patient is sitting up to the bedside edge eating her breakfast. She reports she is feeling somewhat better today. Denies any complaints of shortness of breath or pain. The drainage to her left chest wall incision site seems to have improved today. Preliminary microbiology aerobic wound culture showing no growth after 24 hours. She was started on vancomycin and meropenem yesterday for IV antibiotic coverage. Currently she is hemodynamically stable and has been afebrile in the last 24 hours. She does report having an occasional reductive cough but is unable to describe the color of the sputum. She also reports that sometimes with her coughing she feels air leaking out the drainage site to her left chest. Oxygen saturations are 96% on room air.a chest x-ray was completed this morning which demonstrates a continuing hydro- pneumothorax on the left with a reduction in the amount of air within the cavity. On 02/01/2020 the patient was seen on the fourth floor medical surgical unit in follow-up. The patient is sitting up in bed, she is in no acute distress. Denies any complaints of pain or shortness of breath at this time and reports that she is starting to feel better on a daily basis. She has been afebrile the last 24 hours, oxygen saturations are 97% on room air. She is demonstrating good use her for incentive spirometry and is achieving 1000 mL. Lab results today show a WBC count 7.9, hemoglobin 8.2, platelets 375, BUN 8, creatinine 0.73. She was tested for COVID 19 on admission which was negative. Dressing to her left chest draining incision site with scant thin yellowish serosanguineous drainage. Dressing was changed at this time. She received 1 unit of PRBC transfusion yesterday for hemoglobin of 6.9. Currently she is hemodynamically stable. Denies any further coughing or sputum production. Wound culture from left chest shows many gram-positive bacilli and she remains on meropenem and vancomycin for antibiotic coverage. On 02/02/2020 the patient was seen on follow-up on the fourth floor medical surgical unit. She is awake, alert and oriented 3 and is in no acute distress. Oxygen saturations are 96% on room air. She continues to have some scant thin yellowish drainage from her left chest wall surgical site. She was scheduled for a left thoracotomy today with decortication to be performed by Dr. Teddy Wilkins, although due to her being on Eliquis which was held since yesterday morning she was rescheduled for tomorrow 02/03/2020. Laboratory results today show a WBC of 9.0, hemoglobin 10.1, and platelets 962. Denies any complaints of pain or shortness of breath, and states that she feels pretty good this morning. She is using her incentive spirometry and achieving 1000 mL. She has been afebrile the last 24 hours and remained hemodynamically stable. She has been having episodes of elevated blood pressure and was started on valsartan by primary care service. Objective - Vital Signs Vital signs: Vital Signs Temp 97.9 F 02/02/20 07:00 Pulse 65 02/02/20 07:00 Resp 16 02/02/20 07:00 BP 193/69 02/02/20 07:00 Pulse Ox 96 02/02/20 07:00 Intake & Output 02/01/20 02/02/20 02/02/20 18:59 06:59 18:59 Other: # Voids 4 - Exam This is a 55-year-old pleasant female patient who is resting comfortably in bed. She is in no acute distress. Oxygen saturations are 96% on room air. - Constitutional General appearance: Present: cooperative, no acute distress, thin - EENT Eyes: Present: PERRLA, normal appearance. Absent: scleral icterus ENT: Present: hearing grossly normal, normal oropharynx. Absent: thrush - Neck Details: Neck is supple, no JVD. Neck: Absent: lymphadenopathy, thyromegaly - Respiratory Details: Lungs sounds essentially clear throughout, diminished bilaterally, left greater than right. Respirations are symmetrical, nonlabored. Currently on room air with oxygen saturation 96%. No cyanosis, positive clubbing. - Cardiovascular Details: Regular rhythm and rate. S1 and S2 present, negative for S3, gallop or murmur. - Gastrointestinal Gastrointestinal Comment(s): Abdomen soft, nontender nondistended. Active bowel sounds present in all 4 abdominal quadrants. - Integumentary Integumentary Comment(s): Skin is warm and dry. No clubbing or cyanosis is present. Thin yellowish drainage to her left chest. - Neurologic Neurologic: Present: CNII-XII intact - Musculoskeletal Musculoskeletal: Present: gait normal, strength equal bilaterally - Psychiatric Psychiatric: Present: A&O x's 3, appropriate affect, intact judgment & insight - Allied health notes Allied health notes reviewed: nursing - Labs CBC & Chem 7: 02/02/20 07:44 02/01/20 06:12 Labs: Abnormal Lab Results - Last 24 Hours (Table) 01/31/20 02/01/20 02/01/20 Range/Units 10:05 16:49 20:50 Hgb (11.4-16.0) gm/dL Hct (34.0-46.0) % MCH (25.0-35.0) pg MCHC (31.0-37.0) g/dL RDW (11.5-15.5) % Plt Count (150-450) k/uL Metamyelocytes # (Man) (0) k/uL POC Glucose (mg/dL) 175 H 111 H (75-99) mg/dL Hemoglobin A1c 7.4 H (4.0-6.0) % 02/02/20 02/02/20 02/02/20 Range/Units 06:48 07:44 11:42 Hgb 10.1 L (11.4-16.0) gm/dL Hct 33.5 L (34.0-46.0) % MCH 24.7 L (25.0-35.0) pg MCHC 30.1 L (31.0-37.0) g/dL RDW 17.1 H (11.5-15.5) % Plt Count 962 H (150-450) k/uL Metamyelocytes # (Man) 0.09 H (0) k/uL POC Glucose (mg/dL) 130 H 300 H (75-99) mg/dL Hemoglobin A1c (4.0-6.0) % Microbiology - Last 24 Hours (Table) 01/29/20 09:00 Gram Stain - Final Chest Wound Culture - Final Gram Positive Bacilli Isolated Assessment and Plan Assessment: 1. Superficial wound, draining thin foul-smelling yellowish drainage 2. History of poorly differentiated squamous cell carcinoma, status post left upper lobectomy on 12/31/2019 3. History of hypertension 4. History of hyperlipidemia 5. Previous tobacco dependence 6. Type 2 diabetes 7. History of cervical cancer status post hysterectomy 8. History of anxiety/bipolar disorder Plan: 1. Awaiting final culture results and sensitivities, continue on current antibiotic regimen. Preliminary results showing many gram-positive bacilli. She continues on meropenem and vancomycin. 2. Medical management and other comorbidities per primary care service. Hypertension management per primary care service. 3. Continue to encourage smoking cessation. 4. The patient is scheduled for a left thoracotomy with decortication to be performed by Dr. Teddy Wilkins on 02/03/2020. Continue to hold Eliquis. 5. Nothing by mouth after midnight on 02/03/2020. 6. Continue bronchodilators. 7. GI and DVT prophylaxis. 8. More recommendations to follow based on patient's clinical course. Time with Patient: Less than 30
--- NOTE | 2020-02-02 12:16 | P.PN ---
Subjective Progress Note Date: 02/02/20 Principal diagnosis: This is a 55-year-old female patient who follows with Dr. Leroy on an outpatient basis. She has a past medical history of poorly differentiated squamous cell carcinoma, status post left upper lobectomy on 12/31/2019, hypertension, hyperlipidemia, chronic tobacco abuse, type 2 diabetes mellitus, cervical cancer status post hysterectomy, anxiety and bipolar disorder. On 01/28/2020 she had a follow-up visit with Dr. Teddy Wilkins for her pathology results of her recent left upper lobectomy. Upon exam of her surgical incisions there was a fluctuant area which was painful to touch on her left chest. Subsequently she was started on oral Keflex. Yesterday morning she developed some drainage from that incision site with the fluctuant area, leaking foul smelling yellowish fluid. Her initial lab results showed a WBC count 12.0, Hgb 8.3, neutrophils 59%, positive band neutrophil percent 24 and neutrophil numbers 9.0. A chest x-ray was completed which demonstrated a normal and the left hydropneumothorax, with no significant interval changes. She was admitted to observation to determine further treatment plans and surgical incision with consultation placed to Dr. Teddy Wilkins. On 02/02/2020 patient was seen on follow-up on the fourth floor medical surgical unit. She is resting comfortably in bed, she is alert and oriented 3. Remains hemodynamically stable and is in no acute distress. She has been afebrile for the last 24 hours. Oxygen saturations are 96% on room air. Her left chest wound culture sensitivities remain pending, currently showing gram-positive bacilli. She is on meropenem and vancomycin for antibiotic coverage. Denies any complaints of shortness of breath or pain. The patient states that she had a shower this morning and that her left chest drainage site had minimal drainage from it in the last 12 hours. She was scheduled for a left thoracotomy with decortication for this morning to be performed by Dr. Teddy Wilkins. The procedure was changed and rescheduled for tomorrow 02/03/2020 as Elquis was stopped yesterday morning. Lab results today show a WBC count of 9.0, hemoglobin 10.1, and platelets 962. She is demonstrating good use of her incentive spirometry and achieving 1000 mL. Objective - Vital Signs Vital signs: Vital Signs Temp 97.9 F 02/02/20 07:00 Pulse 65 02/02/20 07:00 Resp 16 02/02/20 07:00 BP 193/69 02/02/20 07:00 Pulse Ox 96 02/02/20 07:00 Intake & Output 02/01/20 02/02/20 02/02/20 18:59 06:59 18:59 Other: # Voids 4 - Exam This is a 55-year-old pleasant female patient who is resting comfortably in bed. She is in no acute distress. Oxygen saturations are 96% on room air. - Constitutional General appearance: Present: cooperative, no acute distress, thin - EENT Eyes: Present: PERRLA, normal appearance. Absent: scleral icterus ENT: Present: hearing grossly normal, normal oropharynx. Absent: thrush - Neck Details: Neck is supple, no JVD. Neck: Absent: lymphadenopathy, thyromegaly - Respiratory Details: Lung sounds essentially clear throughout, diminished her left lower lobe. Respirations are symmetrical and nonlabored. - Cardiovascular Details: Regular rhythm and rate. S1 and S2 present, negative for S3, gallop or murmur. No edema. - Gastrointestinal Gastrointestinal Comment(s): Abdomen soft, nontender nondistended. Active bowel sounds present all 4 quadrants. No guarding or rigidity. No organomegaly. - Integumentary Integumentary Comment(s): Skin is warm and dry. No clubbing or cyanosis is present. No rash. Scant thin yellowish/serosanguineous drainage from her left chest. - Neurologic Neurologic: Present: CNII-XII intact - Musculoskeletal Musculoskeletal: Present: gait normal, strength equal bilaterally - Psychiatric Psychiatric: Present: A&O x's 3, appropriate affect, intact judgment & insight - Allied health notes Allied health notes reviewed: nursing - Labs CBC & Chem 7: 02/02/20 07:44 02/01/20 06:12 Labs: Abnormal Lab Results - Last 24 Hours (Table) 01/31/20 02/01/20 02/01/20 Range/Units 10:05 16:49 20:50 Hgb (11.4-16.0) gm/dL Hct (34.0-46.0) % MCH (25.0-35.0) pg MCHC (31.0-37.0) g/dL RDW (11.5-15.5) % Plt Count (150-450) k/uL Metamyelocytes # (Man) (0) k/uL POC Glucose (mg/dL) 175 H 111 H (75-99) mg/dL Hemoglobin A1c 7.4 H (4.0-6.0) % 02/02/20 02/02/20 02/02/20 Range/Units 06:48 07:44 11:42 Hgb 10.1 L (11.4-16.0) gm/dL Hct 33.5 L (34.0-46.0) % MCH 24.7 L (25.0-35.0) pg MCHC 30.1 L (31.0-37.0) g/dL RDW 17.1 H (11.5-15.5) % Plt Count 962 H (150-450) k/uL Metamyelocytes # (Man) 0.09 H (0) k/uL POC Glucose (mg/dL) 130 H 300 H (75-99) mg/dL Hemoglobin A1c (4.0-6.0) % Microbiology - Last 24 Hours (Table) 01/29/20 09:00 Gram Stain - Final Chest Wound Culture - Final Gram Positive Bacilli Isolated Assessment and Plan Assessment: 1. Superficial wound, draining thin foul-smelling yellowish drainage 2. History of poorly differentiated squamous cell carcinoma, status post left upper lobectomy on 12/31/2019 3. History of hypertension 4. History of hyperlipidemia 5. Previous tobacco dependence 6. Type 2 diabetes 7. History of cervical cancer status post hysterectomy 8. History of anxiety/bipolar disorder Plan: 1. Awaiting final culture results and sensitivities, continue on current antibiotic regimen. Preliminary results showing many gram-positive bacilli. She continues on meropenem and vancomycin. 2. Medical management and other comorbidities per primary care service. Hypertension management per primary care service. 3. Continue to encourage smoking cessation. 4. The patient is scheduled for a left thoracotomy with decortication to be performed by Dr. Teddy Wilkins on 02/03/2020. Continue to hold Eliquis. 5. Nothing by mouth after midnight on 02/03/2020. 6. Encourage use of her incentive spirometry 10 times every hour while awake. 7. GI and DVT prophylaxis. 8. Continue to shower daily. 9. Awaiting final sensitivity on the left chest wound culture. May require a PICC line placement for home IV antibiotic infusions. 10. More recommendations to follow based on patient's clinical course. Time with Patient: Less than 30
[2020-02-02 17:08] LABS: Glucose,Whole Blood 170 mg/dL (75-99)
[2020-02-02] MEDS: HEPARIN SODIUM,PORCINE 5,000 UNIT/ML 1 ML VIAL SQ SCH (17:14)
--- NOTE | 2020-02-02 18:34 | P.PN ---
Subjective Progress Note Date: 02/02/20 This is a 55-year-old female, nicotine dependent, 40 year smoking history, quit in October 2019, with recently diagnosed -poorly differentiated squamous cell CA left lung, status post left upper lobectomy on 12/31/2019, presented to the ER with complaints of increased foul-smelling draining from prior lobectomy incision sites. Patient had seen cardiothoracic surgeon Dr. Wilkins yesterday, started on oral Keflex. Afebrile, WBC12, vital signs stable. Hemoglobin 8.3, sodium 131, potassium 3.1, magnesium 1.5. Alkaline phosphatase mildly elevated 134. Chest x-ray reporting known left hydropneumothorax, trachea midline, right lung clear. EKG reporting normal sinus rhythm, lateral infarct, age undet ermined. Troponin negative 1. Denies chest pain, palpitations or shortness of breath. Denies lightheadedness, dizziness or focal deficits. 01/30/2020: The patient was not discharged last night as a potassium of return to normal. She does have a small leukocytosis which may be consistent with her recent surgeries and lung cancer, however a repeat is pending for this morning. I discussed the case currently with thoracic surgery and they felt that because of the white count, Keflex and discharged to be held. We discussed pulmonology consult which was done. That is in progress and they had ordered a CT chest showing an air-fluid level and dense consolidation remainder of the lung left lo be after left upper lobectomy. The margins suggested infection. Currently she's been placed on meropenem. Her wound continues to drain. Cultures are pending, but currently show no growth. He denies any significant chest pains, pressures, or shortness of breath this time. She denies any nausea or vomiting. She reports her appetite is little bit improved. She had not been eating well recently due to her cancer and treatment. Potassium this morning is 3.2. 01/31/2020: Her case was discussed with vascular surgery, they will plan a a large debridement of her chest wound in the next 48 hours. She remains on amiodarone and Elequis for anticoagulation due to atrial fibrillation. She continues on meropenem and vancomycin for her Lung empyema after robotically assisted left upper lobectomy for squamous cell carcinoma. He remains on bisoprolol for blood pressure control, but it remains somewhat elevated. Hemoglobin is dropped from 8.3 down to 6.4. A stat repeat is now 6.9. Her plat elets continue to be elevated, most likely reactive, now 1044. She remains hyponatremic at 133. She denies any significant chest pains, pressures, or shortness of breath other than with exertion. She denies any significant nausea or vomiting. Staff reports she is complaining some vaginal itching and irritation. Potassium is now up to 4.2 today. 02/01/2020 Wound cultures reporting gram-positive bacilli isolated. Maintained on vancomycin, Merrem. Continues having purulent drainage from lateral left chest incision site. Tested negative for coronavirus. Afebrile, WBC WNL. Hemoglobin 8.2. Telemetry sinus rhythm. Denies chest pain, palpitations. 02/02/2020 received Eliquis yesterday, surgery, rescheduled for tomorrow for 02/03/20. Hypertensive, hydralazine initiated yesterday. Drainage continues. Afebrile, WBC within normal limits. Maintaining O2 sats in the 90s on room air. Hemoglobin 10.1. Objective - Vital Signs Vital signs: Vital Signs Temp 97.6 F 02/02/20 15:00 Pulse 64 02/02/20 15:00 Resp 16 02/02/20 15:00 BP 145/67 02/02/20 15:00 Pulse Ox 97 02/02/20 15:00 Intake & Output 02/01/20 02/02/20 02/02/20 18:59 06:59 18:59 Other: # Voids 4 4 - Exam GENERAL: Sitting up in bed, no acute distress NECK: No JVD. No thyroid enlargement. No LNs CARDIOVASCULAR: S1, S2 regular. No murmur RESPIRATION: Breath sounds diminished. ABDOMEN: Soft, nontender . No guarding. no masses palpable. Bowel sounds heard. LEGS: No edema. no swelling. No clubbing, no cyanosis PSYCHIATRY: Alert and oriented X3, mood and affect normal. NERVOUS SYSTEM: Cranial N 2-12 grossly normal. Moves all 4 limbs. No focal deficits. Strength and sensation grossly intact.. Skin: Left lateral prior lobectomy incisional site dressing clean dry and intac t. Microbiology 01/29/20 09:00 Chest Gram Stain - Final 01/29/20 09:00 Chest Wound Culture - Final Gram Positive Bacilli Isolated - Labs CBC & Chem 7: 02/02/20 07:44 02/01/20 06:12 Labs: Abnormal Lab Results - Last 24 Hours (Table) 02/01/20 02/02/20 02/02/20 Range/Units 20:50 06:48 07:44 Hgb 10.1 L (11.4-16.0) gm/dL Hct 33.5 L (34.0-46.0) % MCH 24.7 L (25.0-35.0) pg MCHC 30.1 L (31.0-37.0) g/dL RDW 17.1 H (11.5-15.5) % Plt Count 962 H (150-450) k/uL Metamyelocytes # (Man) 0.09 H (0) k/uL POC Glucose (mg/dL) 111 H 130 H (75-99) mg/dL 02/02/20 02/02/20 Range/Units 11:42 17:06 Hgb (11.4-16.0) gm/dL Hct (34.0-46.0) % MCH (25.0-35.0) pg MCHC (31.0-37.0) g/dL RDW (11.5-15.5) % Plt Count (150-450) k/uL Metamyelocytes # (Man) (0) k/uL POC Glucose (mg/dL) 300 H 170 H (75-99) mg/dL Assessment and Plan Assessment: (1) Hydropneumothorax Current Visit: Yes Status: Acute Priority: High Code(s): J94.8 - OTHER SPECIFIED PLEURAL CONDITIONS SNOMED Code(s): 33483551 (2) Cavitary lesion of lung Current Visit: No Status: Acute Priority: High Code(s): J98.4 - OTHER DISORDERS OF LUNG SNOMED Code(s): 020639867 (3) Hypokalemia Current Visit: Yes Status: Acute Priority: High Code(s): E87.6 - HYPOKALEMIA SNOMED Code(s)74305787 (4) Microcytic anemia Current Visit: Yes Status: Chronic Priority: Medium Code(s): D50.9 - IRON DEFICIENCY ANEMIA, UNSPECIFIED SNOMED Code(s): 832049190 (5)Poorly differentiated squamous cell CA, left upper lobe Current Visit: Yes Status: Acute Code(s): C34.90 - MALIGNANT NEOPLASM OF UNSP PART OF UNSP BRONCHUS OR LUNG SNOMED Code(s): 073094108 (6) S/P lobectomy of lung with draining from prior recent left upper lobectomy incisional site, cultures reporting gram-positive bacilli isolated. Current Visit: Yes Status: Chronic Priority: Low Code(s): Z90.2 - ACQUIRED ABSENCE OF LUNG [PART OF] SNOMED Code(s): 38195979295457667 (7) Essential (primary) hypertension Current Visit: No Status: Acute Code(s): I10 - ESSENTIAL (PRIMARY) HYPERTENSION SNOMED Code(s): 69696684 (8) Hyponatremia Current Visit: Yes Status: Acute Code(s): E87.1 - HYPO-OSMOLALITY AND HYPONATREMIA SNOMED Code(s): 91669566 (9)Major depressive disorder, recurrent, moderate Current Visit: No Status: Acute Code(s): F33.1 - MAJOR DEPRESSIVE DISORDER, RECURRENT, MODERATE SNOMED Code(s): 362659529 (10)Type 2 diabetes mellitus without complications Current Visit: No Status: Acute Code(s): E11.9 - TYPE 2 DIABETES MELLITUS WITHOUT COMPLICATIONS SNOMED Code(s): 451785565 (11) Fibromyalgia Current Visit: Yes Status: Acute Code(s): M79.7 - FIBROMYALGIA SNOMED Code(s): 967771584 (12) hypomagnesemia (13)Possible SIADH related to Lung CA (14) Paroxysmal atrial fibrillation Current Visit: Yes Status: Chronic Priority: Medium Code(s): I48.0 - PAROXYSMAL ATRIAL FIBRILLATION SNOMED Code(s): 397982196 (15) hypoproteinemia Plan: Continue on current medication regime ,monitoring and symptomatic treatment. Continue on vancomycin, Merrem .close monitoring of renal function, coags with repeat labs ordered for a.m. Eliever on hold for upcoming procedure tomorrow. Aggressive pulmonary toileting with incentive spirometer reinforced. Given positive cultures, potential for PICC line at discharge, infectious disease consulted. Prognosis guarded given multiple complex medical issues. The impression and plan of care has been dictated as directed. : I performed a history and examination of this patient, discussed the same with the dictator. I agree with the dictator's note ,documented as a scribe. Any additional findings or plans will be noted.
[2020-02-02 21:05] LABS: Glucose,Whole Blood 178 mg/dL (75-99)
[2020-02-03] MEDS: HEPARIN SODIUM,PORCINE 5,000 UNIT/ML 1 ML VIAL SQ SCH ×3 (01:05→17:10)
[2020-02-03] MEDS: MEROPENEM 1 GM in SODIUM CHLORIDE 0.9% 100 ML IVPB SCH ×3 (01:05→18:43)
[2020-02-03] MEDS: VANCOMYCIN 1,250 MG in SODIUM CHLORIDE 0.9% 250 ML IVPB SCH ×2 (05:29→18:21)
[2020-02-03 06:37] LABS: Glucose,Whole Blood 157 mg/dL (75-99)
[2020-02-03 07:26] LABS: Anisocytosis Slight; Basophils % (A) 0 %; Eosinophils % (A) 0 %; HCT 29.3 % (34.0-46.0); HGB 8.8 gm/dL (11.4-16.0); Hypochromasia Marked; Lymphocytes # (A) 0.8 k/uL (1.0-4.8); Lymphocytes % (A) 9 %; MCH 24.7 pg (25.0-35.0); MCHC 30.2 g/dL (31.0-37.0); MCV 81.9 fL (80.0-100.0); Mean Platelet Volume 6.5; Monocytes # (A) 0.5 k/uL (0-1.0); Monocytes % (A) 6 %; Neutrophils # (A) 6.8 k/uL (1.3-7.7); Neutrophils % (A) 80 %; Platelet Count 905 k/uL (150-450); Poikilocytosis Moderate; RBC 3.58 m/uL (3.80-5.40); RDW 17.1 % (11.5-15.5); WBC 8.5 k/uL (3.8-10.6)
[2020-02-03 07:42] LABS: Calcium 7.9 mg/dL (8.4-10.2)
[2020-02-03 08:02] LABS: Potassium 3.6 mmol/L (3.5-5.1)
[2020-02-03] MEDS: AMIODARONE 200 MG TAB PO SCH (08:56)
[2020-02-03] MEDS: LACTATED RINGERS 1,000 ML IV SCH ×3 (08:57→12:41)
[2020-02-03] MEDS: INSULIN ASPART (NovoLOG) 100 UNIT/ML VIAL SQ SCH ×4 (09:08→20:54)
[2020-02-03] MEDS: metFORMIN 500 MG TAB PO SCH ×2 (09:08→17:21)
[2020-02-03] MEDS: MAGNESIUM OXIDE 400 MG TAB PO SCH ×2 (09:09→20:57)
[2020-02-03] MEDS: DULoxetine HCL 60 MG CAPSULE.DR PO SCH (09:09)
[2020-02-03] MEDS: hydrALAZINE HCL 50 MG TAB PO SCH ×3 (09:09→20:57)
[2020-02-03] MEDS: BISOPROLOL 5 MG TAB PO SCH (09:09)
[2020-02-03] MEDS: VALSARTAN 160 MG TAB PO SCH (09:14)
[2020-02-03 11:17] LABS: Glucose,Whole Blood 134 mg/dL (75-99)
[2020-02-03] MEDS: PANTOPRAZOLE 40 MG TABLET PO SCH (11:41)
[2020-02-03] MEDS ORDERED: ONDANSETRON 4 MG/2 ML VIAL ONE (12:20)
[2020-02-03] MEDS ORDERED: SUCCINYLCHOLINE CHLORIDE 100 MG/5 ML SYR IV ONE (12:20)
[2020-02-03] MEDS ORDERED: PHENYLEPHRINE-0.9% NACL SYG 1 MG/10 ML SYRINGE ONE (12:20)
[2020-02-03] MEDS ORDERED: LACTATED RINGERS 1,000 ML IV ONE ×2 (12:20→14:15)
[2020-02-03] MEDS ORDERED: fentaNYL (PF) 50 MCG/ML 2 ML AMP ONE (12:20)
[2020-02-03] MEDS ORDERED: HYDROmorphone (PF) 1 MG/ML ONE ×2 (12:20)
[2020-02-03] MEDS ORDERED: ROCURONIUM BROMIDE 10 MG/ML 5 ML VIAL IV ONE (12:20)
[2020-02-03] MEDS ORDERED: PROPOFOL 10 MG/ML 20 ML VIAL IV ONE (12:20)
[2020-02-03] MEDS ORDERED: MIDAZOLAM 2 MG/2 ML VIAL ONE (12:20)
[2020-02-03] MEDS ORDERED: VANCOMYCIN TROUGH DUE 1 EACH MISC MISCELLANE ONE (13:00)
--- NOTE | 2020-02-03 14:14 | P.PN ---
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 Recent history left upper lobectomy for poorly differentiated squamous cell carcinoma This is a 55-year-old female patient who follows with Dr. Leroy on an outpatient basis. She has a past medical history of poorly differentiated squamous cell carcinoma, status post left upper lobectomy on 12/31/2019, hyperte nsion, hyperlipidemia, chronic tobacco abuse, type 2 diabetes mellitus, cervical cancer status post hysterectomy, anxiety and bipolar disorder. On 01/28/2020 she had a follow-up visit with Dr. Teddy Wilkins for her pathology results of her recent left upper lobectomy. Upon exam of her surgical incisions there was a fluctuant area which was painful to touch on her left chest. Subsequently she was started on oral Keflex. Yesterday morning she developed some drainage from that incision site with the fluctuant area, leaking foul smelling yellowish fluid. Her initial lab results showed a WBC count 12.0, Hgb 8.3, neutrophils 59%, positive band neutrophil percent 24 and neutrophil numbers 9.0. A chest x- ray was completed which demonstrated a normal and the left hydropneumothorax, with no significant interval changes. She was admitted to observation to determine further treatment plans and surgical incision with consultation placed to Dr. Teddy Wilkins. On 02/02/2020 patient was seen on follow-up on the fourth floor medical surgical unit. She is resting comfortably in bed, she is alert and oriented 3. Remains hemodynamically stable and is in no acute distress. She has been afebrile for the last 24 hours. Oxygen saturations are 96% on room air. Her left chest wound culture sensitivities remain pending, currently showing gram-positive bacilli. She is on meropenem and vancomycin for antibiotic coverage. Denies any complaints of shortness of breath or pain. The patient states that she had a shower this morning and that her left chest drainage site had minimal drainage from it in the last 12 hours. She was scheduled for a left thoracotomy with decortication for this morning to be performed by Dr. Teddy Wilkins. The procedure was changed and rescheduled for tomorrow 02/03/2020 as Elquis was stopped yesterday morning. Lab results today show a WBC count of 9.0, hemog lobin 10.1, and platelets 962. She is demonstrating good use of her incentive spirometry and achieving 1000 mL. On 02/03/2020 patient is seen in follow-up on general medical floor. She is calm and comfortable, vital signs are stable, room air pulse ox 96%, afebrile, respirations are nonlabored, left chest wound drainage is small amount, reddish in color today. Wound culture showed gram-positive bacilli, patient remains on combination of meropenem and vancomycin for possibility of empyema bro nchopleural fistula, patient has been scheduled for surgical decortication by Dr. Wilkins today. No acute events overnight. Objective - Vital Signs Vital signs: Vital Signs Temp 98.4 F 02/03/20 07:00 Pulse 63 02/03/20 07:00 Resp 16 02/03/20 07:00 BP 160/85 02/03/20 07:00 Pulse Ox 96 02/03/20 07:00 Intake & Output 02/02/20 02/03/20 02/03/20 18:59 06:59 18:59 Intake Total 250 Balance 250 Weight 61.235 kg Intake: Intake, IV Titration 250 Amount Vancomycin 1,250 mg In 250 Sodium Chloride 0.9% 250 ml @ 125 mls/hr IVPB Q8H [facility] Rx#:[id number] Other: Voiding Method Toilet # Voids 4 1 - Exam GENERAL EXAM: Alert, very pleasant, 55-year-old white female, on room air, with a pulse ox of 96% comfortable in no apparent distress. HEAD: Normocephalic/atraumatic. EYES: Normal reaction of pupils, equal size. Conjunctiva pink, sclera white. NOSE: Clear with pink turbinates. THROAT: No erythema or exudates. NECK: No masses, no JVD, no thyroid enlargement, no adenopathy. CHEST: No chest wall deformity. Symmetrical expansion. LUNGS: Equal air entry with no crackles, wheeze, rhonchi or dullness. CVS: Regular rate and rhythm, normal S1 and S2, no gallops, no murmurs, no rubs ABDOMEN: Soft, nontender. No hepatosplenomegaly, normal bowel sounds, no guarding or rigidity. EXTREMITIES: No clubbing, no edema, no cyanosis, 2+ pulses and upper and lower extremities. MUSCULOSKELETAL: Muscle strength and tone normal. SPINE: No scoliosis or deformity SKIN: Wound on the left posterior chest wall, with drainage of purulent serosanguineous drainage. CENTRAL NERVOUS SYSTEM: Alert and oriented -3. No focal deficits, tone is normal in all 4 extremities. PSYCHIATRIC: Alert and oriented -3. Appropriate affect. Intact judgment and insight. - Labs CBC & Chem 7: 02/03/20 06:36 02/03/20 06:36 Labs: Abnormal Lab Results - Last 24 Hours (Table) 02/02/20 02/02/20 02/03/20 Range/Units 17:06 21:03 06:36 RBC 3.58 L (3.80-5.40) m/uL Hgb 8.8 L (11.4-16.0) gm/dL Hct 29.3 L (34.0-46.0) % MCH 24.7 L (25.0-35.0) pg MCHC 30.2 L (31.0-37.0) g/dL RDW 17.1 H (11.5-15.5) % Plt Count 905 H (150-450) k/uL Lymphocytes # 0.8 L (1.0-4.8) k/uL Sodium (137-145) mmol/L Glucose (74-99) mg/dL POC Glucose (mg/dL) 170 H 178 H (75-99) mg/dL Calcium (8.4-10.2) mg/dL 02/03/20 02/03/20 02/03/20 Range/Units 06:36 06:36 11:16 RBC (3.80-5.40) m/uL Hgb (11.4-16.0) gm/dL Hct (34.0-46.0) % MCH (25.0-35.0) pg MCHC (31.0-37.0) g/dL RDW (11.5-15.5) % Plt Count (150-450) k/uL Lymphocytes # (1.0-4.8) k/uL Sodium 136 L (137-145) mmol/L Glucose 148 H (74-99) mg/dL POC Glucose (mg/dL) 157 H 134 H (75-99) mg/dL Calcium 7.9 L (8.4-10.2) mg/dL Assessment and Plan Plan: Assessment: 1. Superficial wound, draining thin foul-smelling yellowish drainage, with blood cultures positive for gram-positive bacilli, and is on, on meropenem and vancomycin, and she is going for surgical decortication today on 02/03/[address] Wilkins 2. History of poorly differentiated squamous cell carcinoma, status post left upper lobectomy on 12/31/2019 3. History of hypertension 4. History of hyperlipidemia 5. Previous tobacco dependence 6. Type 2 diabetes 7. History of cervical cancer status post hysterectomy 8. History of anxiety/bipolar disorder Plan: Continue current medical treatment, patient is currently on meropenem and v ancomycin, blood culture showed gram-positive bacilli, no drainage out of the left chest wall is now blood-tinged. But smaller in amount, patient has been scheduled for surgical decortication Dr. Wilkins today, is awaiting to go to surgery, we will see the patient in follow-up in intensive care unit, will continue to closely follow. follow up chest x-ray and labs in the morning I performed a history & physical examination of the patient and discussed their management with my nurse practitioner, Bria Cid. I reviewed the nurse practitioner's note and agree with the documented findings and plan of care. Lung sounds are positive for diffuse wheezes throughout the lung cornejo. The findings and the impression was discussed with the patient. I attest to the documentation by the nurse practitioner. Time with Patient: Less than 30
--- NOTE | 2020-02-03 14:44 | P.PN ---
Subjective Progress Note Date: 02/03/20 This is a 55-year-old female, nicotine dependent, 40 year smoking history, quit in October 2019, with recently diagnosed -poorly differentiated squamous cell CA left lung, status post left upper lobectomy on 12/31/2019, presented to the ER with complaints of increased foul-smelling draining from prior lobectomy incision sites. Patient had seen cardiothoracic surgeon Dr. Wilkins yesterday, started on oral Keflex. Afebrile, WBC12, vital signs stable. Hemoglobin 8.3, sodium 131, potassium 3.1, magnesium 1.5. Alkaline phosphatase mildly elevated 134. Chest x-ray reporting known left hydropneumothorax, trachea midline, right lung clear. EKG reporting normal sinus rhythm, lateral infarct, age undet ermined. Troponin negative 1. Denies chest pain, palpitations or shortness of breath. Denies lightheadedness, dizziness or focal deficits. 01/30/2020: The patient was not discharged last night as a potassium of return to normal. She does have a small leukocytosis which may be consistent with her recent surgeries and lung cancer, however a repeat is pending for this morning. I discussed the case currently with thoracic surgery and they felt that because of the white count, Keflex and discharged to be held. We discussed pulmonology consult which was done. That is in progress and they had ordered a CT chest showing an air-fluid level and dense consolidation remainder of the lung left lo be after left upper lobectomy. The margins suggested infection. Currently she's been placed on meropenem. Her wound continues to drain. Cultures are pending, but currently show no growth. He denies any significant chest pains, pressures, or shortness of breath this time. She denies any nausea or vomiting. She reports her appetite is little bit improved. She had not been eating well recently due to her cancer and treatment. Potassium this morning is 3.2. 01/31/2020: Her case was discussed with vascular surgery, they will plan a a large debridement of her chest wound in the next 48 hours. She remains on amiodarone and Elequis for anticoagulation due to atrial fibrillation. She continues on meropenem and vancomycin for her Lung empyema after robotically assisted left upper lobectomy for squamous cell carcinoma. He remains on bisoprolol for blood pressure control, but it remains somewhat elevated. Hemoglobin is dropped from 8.3 down to 6.4. A stat repeat is now 6.9. Her plat elets continue to be elevated, most likely reactive, now 1044. She remains hyponatremic at 133. She denies any significant chest pains, pressures, or shortness of breath other than with exertion. She denies any significant nausea or vomiting. Staff reports she is complaining some vaginal itching and irritation. Potassium is now up to 4.2 today. 02/01/2020 Wound cultures reporting gram-positive bacilli isolated. Maintained on vancomycin, Merrem. Continues having purulent drainage from lateral left chest incision site. Tested negative for coronavirus. Afebrile, WBC WNL. Hemoglobin 8.2. Telemetry sinus rhythm. Denies chest pain, palpitations. 02/02/2020 received Eliquis yesterday, surgery, rescheduled for tomorrow for 02/03/20. Hypertensive, hydralazine initiated yesterday. Drainage continues. Afebrile, WBC within normal limits. Maintaining O2 sats in the 90s on room air. Hemoglobin 10.1. 02/03/2020 NPO, Eliquis remains on hold. OR pending. Hypertensive. Hemoglobin 8.8. Continues maintaining O2 sats in the mid 90s on room air. Afebrile, WBC WNL. Objective - Vital Signs Vital signs: Vital Signs Temp 98.4 F 02/03/20 07:00 Pulse 63 02/03/20 07:00 Resp 16 02/03/20 07:00 BP 160/85 02/03/20 07:00 Pulse Ox 96 02/03/20 07:00 Intake & Output 02/02/20 02/03/20 02/03/20 18:59 06:59 18:59 Intake Total 250 Balance 250 Intake: Intake, IV Titration 250 Amount Vancomycin 1,250 mg In 250 Sodium Chloride 0.9% 250 ml @ 125 mls/hr IVPB Q8H [facility] Rx#:[id number] Other: Voiding Method Toilet # Voids 4 1 - Exam GENERAL: Sitting up in bed, no acute distress NECK: No JVD. No thyroid enlargement. No LNs CARDIOVASCULAR: S1, S2 regular. No murmur RESPIRATION: Breath sounds diminished. ABDOMEN: Soft, nontender . No guarding. no masses palpable. Positive Bowel sounds. LEGS: No edema. no swelling. No clubbing, no cyanosis PSYCHIATRY: Alert and oriented X3, mood and affect normal. NERVOUS SYSTEM: Cranial N 2-12 grossly normal. Moves all 4 limbs. No focal deficits. Strength and sensation grossly intact.. Skin: Left lateral prior lobectomy incisional site dressing clean dry and intact. Microbiology 01/29/20 09:00 Chest Gram Stain - Final 01/29/20 09:00 Chest Wound Culture - Final Gram Positive Bacilli Isolated - Labs CBC & Chem 7: 02/03/20 06:36 02/03/20 06:36 Labs: Abnormal Lab Results - Last 24 Hours (Table) 02/02/20 02/02/20 02/02/20 Range/Units 07:44 11:42 17:06 RBC (3.80-5.40) m/uL Hgb 10.1 L (11.4-16.0) gm/dL Hct 33.5 L (34.0-46.0) % MCH 24.7 L (25.0-35.0) pg MCHC 30.1 L (31.0-37.0) g/dL RDW 17.1 H (11.5-15.5) % Plt Count 962 H (150-450) k/uL Lymphocytes # (1.0-4.8) k/uL Metamyelocytes # (Man) 0.09 H (0) k/uL Sodium (137-145) mmol/L Glucose (74-99) mg/dL POC Glucose (mg/dL) 300 H 170 H (75-99) mg/dL Calcium (8.4-10.2) mg/dL 02/02/20 02/03/20 02/03/20 Range/Units 21:03 06:36 06:36 RBC 3.58 L (3.80-5.40) m/uL Hgb 8.8 L (11.4-16.0) gm/dL Hct 29.3 L (34.0-46.0) % MCH 24.7 L (25.0-35.0) pg MCHC 30.2 L (31.0-37.0) g/dL RDW 17.1 H (11.5-15.5) % Plt Count 905 H (150-450) k/uL Lymphocytes # 0.8 L (1.0-4.8) k/uL Metamyelocytes # (Man) (0) k/uL Sodium 136 L (137-145) mmol/L Glucose 148 H (74-99) mg/dL POC Glucose (mg/dL) 178 H (75-99) mg/dL Calcium 7.9 L (8.4-10.2) mg/dL 02/03/20 Range/Units 06:36 RBC (3.80-5.40) m/uL Hgb (11.4-16.0) gm/dL Hct (34.0-46.0) % MCH (25.0-35.0) pg MCHC (31.0-37.0) g/dL RDW (11.5-15.5) % Plt Count (150-450) k/uL Lymphocytes # (1.0-4.8) k/uL Metamyelocytes # (Man) (0) k/uL Sodium (137-145) mmol/L Glucose (74-99) mg/dL POC Glucose (mg/dL) 157 H (75-99) mg/dL Calcium (8.4-10.2) mg/dL Assessment and Plan Assessment: (1) Hydropneumothorax Current Visit: Yes Status: Acute Priority: High Code(s): J94.8 - OTHER SPECIFIED PLEURAL CONDITIONS SNOMED Code(s): 62245518 (2) Cavitary lesion of lung Current Visit: No Status: Acute Priority: High Code(s): J98.4 - OTHER DISORDERS OF LUNG SNOMED Code(s): 605273021 (3) Hypokalemia Current Visit: Yes Status: Acute Priority: High Code(s): E87.6 - HYPOKALEMIA SNOMED Code(s)47669326 (4) Microcytic anemia Current Visit: Yes Status: Chronic Priority: Medium Code(s): D50.9 - IRON DEFICIENCY ANEMIA, UNSPECIFIED SNOMED Code(s): 125599299 (5)Poorly differentiated squamous cell CA, left upper lobe Current Visit: Yes Status: Acute Code(s): C34.90 - MALIGNANT NEOPLASM OF UNSP PART OF UNSP BRONCHUS OR LUNG SNOMED Code(s): 968486830 (6) S/P lobectomy of lung with draining from prior recent left upper lobectomy incisional site, cultures reporting gram-positive bacilli isolated. Current Visit: Yes Status: Chronic Priority: Low Code(s): Z90.2 - ACQUIRED ABSENCE OF LUNG [PART OF] SNOMED Code(s): 99251056526549205 (7) Essential (primary) hypertension Current Visit: No Status: Acute Code(s): I10 - ESSENTIAL (PRIMARY) HYPERTENSION SNOMED Code(s): 09888174 (8) Hyponatremia Current Visit: Yes Status: Acute Code(s): E87.1 - HYPO-OSMOLALITY AND HYPONATREMIA SNOMED Code(s): 88217807 (9)Major depressive disorder, recurrent, moderate Current Visit: No Status: Acute Code(s): F33.1 - MAJOR DEPRESSIVE DISORDER, RECURRENT, MODERATE SNOMED Code(s): 333422076 (10)Type 2 diabetes mellitus without complications Current Visit: No Status: Acute Code(s): E11.9 - TYPE 2 DIABETES MELLITUS WITHOUT COMPLICATIONS SNOMED Code(s): 271007719 (11) Fibromyalgia Current Visit: Yes Status: Acute Code(s): M79.7 - FIBROMYALGIA SNOMED Code (s): 977280337 (12) hypomagnesemia (13)Possible SIADH related to Lung CA (14) Paroxysmal atrial fibrillation Current Visit: Yes Status: Chronic Priority: Medium Code(s): I48.0 - PAROXYSMAL ATRIAL FIBRILLATION SNOMED Code(s): 354948017 (15) hypoproteinemia Plan: Continue on current medication regime ,monitoring and symptomatic treat ment. Hydralazine increased with close monitoring of blood pressure . Eliquis remains on hold, OR pending. Maintained on vancomycin, Merrem.Renal function stable, close monitoring of renal function, hemoglobin,plts., with repeat labs ordered for a.m. Aggressive pulmonary toileting with incentive spirometer reinforced. The impression and plan of care has been dictated as directed. : I performed a history and examination of this patient, discussed the same with the dictator. I agree with the dictator's note ,documented as a scribe. Any additional findings or plans will be noted.
--- NOTE | 2020-02-03 16:23 | P.OP ---
Date of Procedure: 02/03/20 Preoperative Diagnosis: Empyema Lt chest s/p Left upper lobectomy Postoperative Diagnosis: same Procedure(s) Performed: left thoracotomey. total lung decortication, pectoralis major pedicle flap transposition into the left pleural space, cryoablation of the intercostal nerves. Anesthesia: GETA Surgeon: Teddy Wilkins Estimated Blood Loss (ml): 300 IV fluids (ml): 1,800 (1 unit packed red blood cells) Urine output (ml): 500 Pathology: other (Pleural peel, culture of abscess cavity) Condition: stable Disposition: PACU Indications for Procedure: 55-year-old female who is 5 weeks status post right upper lobectomy for a very large superior cavitating tumor that was abscessed. This was a T3 to T4 N0 tumor. Patient did well initially postoperatively but presented with purulent drainage from her access incision in the left lower anterior chest wall. She was admitted to the hospital and this was drained. She initially had white count and fever and resolved upon drainage however computed tomography scan of the chest showed multiple abscesses within the left pleural cavity. Patient was on Ellik was. This was held and she was taken to the OR for decortication. Because of the space limitation within the chest status post lobectomy it was anticipated she would need muscle transposition into the pleural cavity to eradicate the empyema. Operative Findings: The left lower lobe was reasonably expanded. There were several areas of abscess including anteriorly superior to the pericardium and, more inferiorly anteriorly adjacent to the pericardium, and more posteriorly along the diaphragm posteriorly. Description of Procedure: The patient was brought to the operating room, placed supine on the operating table, anesthetized and intubated with double-lumen endotracheal tube. Tube was positioned with fiberoptic bronchoscopy and secured. There was narrowing of the orifice of the left lower lobe on bronchoscopy with inflammatory tissue noted. The patient was turned into the lateral decubitus position on the right side and the left chest sterilely prepped and draped. Standard posterior lateral thoracotomy incision was performed. The latissimus muscle was completely mobilized all the way to its insertion on the lower ribs. It was mobilized superiorly up to its insertion onto the shoulder. The thoracodorsal nerve and vessels were very carefully maintained. We now entered the chest in the sixth interspace. The lung was very densely adherent. Careful takedown of the pleura was performed. There were 3 abscess cavities the most superior was anterior against the mediastinum just above the level of the pericardium second one was more inferior anteriorly along the pericardium and the third one was posteriorly in the sulcus along the diaphragm. These were all drained. Complete debridement of the parietal pleura was performed. We decorticated the lower lobe completely. Reasonable expansion was accomplished. Because of the space issues following lobectomy was felt necessary to place a muscle in the chest. A portion of the third rib anteriorly was resected and the latissimus muscle was brought through here into the chest cavity. It was spread anteriorly across the lower lobe and extending all the way into the posterior sulcus. This appeared to completely cover the lung in the area of the previous abscess cavities. Cryoablation of the fifth sixth and seventh intercostal nerves was performed with the [employer] ice system. Copious irrigation had been accomplished multiple times and was again Accomplished prior to closure. The ribs were reapproximated with #1 Vicryl in the muscle layers with 0 Vicryl as subcutaneous tissue with 2-0 Vicryl and the skin with 3-0 Vicryl subcuticular stitch. The inferior access thoracoscopy incision was opened and irrigated out. It did not communicate into the pleural space. It was packed with's one-inch iodoform gauze. The chest had been drained with 3 chest tubes and these were all secured with 0 Ethibond sutures and connected to Pleur-evacs. Patient was extubated in the operating room.
[2020-02-03 16:51] LABS: Glucose,Whole Blood 183 mg/dL (75-99)
[2020-02-03] MEDS ORDERED: HYDROmorphone PCA 10 MG/50 ML BAG IV PRN (17:03)
[2020-02-03] MEDS ORDERED: NALOXONE 0.4 MG/ML 1 ML VIAL IV PRN (17:03)
[2020-02-03] MEDS ORDERED: ONDANSETRON 4 MG/2 ML VIAL IVP PRN (17:03)
[2020-02-03] MEDS: ACETAMINOPHEN IV (For NPO) 1,000 MG in EMPTY BAG 1 BAG IVPB SCH (17:27)
[2020-02-03] MEDS: SODIUM CHLORIDE 0.9% 1,000 ML IV SCH (17:28)
--- NOTE | 2020-02-03 17:33 | XR ---
EXAMINATION TYPE: XR chest 1V DATE OF EXAM: 02/03/2020 COMPARISON: 01/31/2020 HISTORY: Postoperative left thoracotomy with decortication FINDINGS: Postoperative changes of left-sided thoracotomy with multiple left-sided chest tubes in place. Near c omplete opacification left hemithorax. Hyperinflation right hemithorax. Cardiac mediastinal silhouett e is grossly unremarkable. IMPRESSION: 1. Postoperative chest as noted.
[2020-02-03] MEDS ORDERED: ALBUMIN HUMAN 5% 250 ML in EMPTY BAG 1 BAG IVPB STA (17:38)
[2020-02-03] MEDS: KETOROLAC 30 MG/ML 1 ML VIAL IVP SCH (17:58)
[2020-02-03 18:21] LABS: Anisocytosis Slight; Basophils % (A) 0 %; Eosinophils % (A) 0 %; HCT 25.5 % (34.0-46.0); HGB 7.9 gm/dL (11.4-16.0); Hypochromasia Marked; Lymphocytes # (A) 0.9 k/uL (1.0-4.8); Lymphocytes % (A) 5 %; MCH 25.7 pg (25.0-35.0); MCHC 30.9 g/dL (31.0-37.0); MCV 83.1 fL (80.0-100.0); Mean Platelet Volume 6.7; Monocytes # (A) 0.6 k/uL (0-1.0); Monocytes % (A) 3 %; Neutrophils # (A) 16.1 k/uL (1.3-7.7); Neutrophils % (A) 90 %; Platelet Count 683 k/uL (150-450); Poikilocytosis Moderate; RBC 3.07 m/uL (3.80-5.40); RDW 16.3 % (11.5-15.5)
[2020-02-03 18:29] LABS: Calcium 7.3 mg/dL (8.4-10.2); Magnesium 1.6 mg/dL (1.6-2.3); Potassium 3.6 mmol/L (3.5-5.1)
[2020-02-03] MEDS ORDERED: ALBUMIN HUMAN 5% 250 ML in EMPTY BAG 1 BAG IVPB ONE ×2 (18:36→20:08)
[2020-02-03] MEDS ORDERED: VANCOMYCIN IV PER PHARMACY 1 EACH MISC MISCELLANE PRN (18:42)
[2020-02-03 20:54] LABS: Glucose,Whole Blood 97 mg/dL (75-99)
[2020-02-03] MEDS: SENNOSIDES-DOCUSATE SODIUM 1 EACH TAB PO SCH (20:57)
[2020-02-04] MEDS: ACETAMINOPHEN IV (For NPO) 1,000 MG in EMPTY BAG 1 BAG IVPB SCH (00:07)
[2020-02-04] MEDS: KETOROLAC 30 MG/ML 1 ML VIAL IVP SCH ×5 (00:09→23:25)
[2020-02-04] MEDS: HEPARIN SODIUM,PORCINE 5,000 UNIT/ML 1 ML VIAL SQ SCH ×4 (00:10→23:25)
[2020-02-04] MEDS ORDERED: VANCOMYCIN 1,250 MG in SODIUM CHLORIDE 0.9% 250 ML IVPB SCH (02:00)
[2020-02-04] MEDS ORDERED: MEROPENEM 1 GM in SODIUM CHLORIDE 0.9% 100 ML IVPB SCH ×2 (04:00→16:00)
[2020-02-04 04:40] LABS: Anisocytosis Slight; Basophils % (A) 0 %; Eosinophils % (A) 0 %; HGB 7.9 gm/dL (11.4-16.0); Hypochromasia Marked; Lymphocytes # (A) 1.1 k/uL (1.0-4.8); Lymphocytes % (A) 8 %; MCH 26.5 pg (25.0-35.0); MCHC 31.4 g/dL (31.0-37.0); MCV 84.4 fL (80.0-100.0); Mean Platelet Volume 7.5; Monocytes # (A) 0.6 k/uL (0-1.0); Monocytes % (A) 5 %; Neutrophils # (A) 10.8 k/uL (1.3-7.7); Neutrophils % (A) 83 %; Platelet Count 515 k/uL (150-450); Poikilocytosis Moderate; RBC 2.97 m/uL (3.80-5.40); RDW 16.3 % (11.5-15.5)
[2020-02-04 04:50] LABS: Calcium 7.4 mg/dL (8.4-10.2); Potassium 3.5 mmol/L (3.5-5.1)
[2020-02-04 04:55] LABS: Vancomycin,Random 27.8 ug/mL
[2020-02-04] MEDS: POTASSIUM CHLORIDE ER 20 MEQ TAB.ER PO SCH ×2 (05:31→07:11)
--- NOTE | 2020-02-04 06:45 | XR ---
"EXAMINATION TYPE: XR chest 1V DATE OF EXAM: 02/04/2020 CLINICAL HISTORY: Difficulty breathing progress study. Left-sided drainage status post lobectomy. Po ssible empyema. TECHNIQUE: Single AP portable upright view of the chest is obtained. COMPARISON: Chest x-ray from one day earlier and older studies. CT chest January 30, 2020. FINDINGS: Redemonstration of left-sided surgical change with left apical and suprahilar surgical cli ps seen 2 left apical chest tubes. There is additional drainage catheter near left bronchus probable mediastinal in location. Chest central to this there is a 8 mm linear density of uncertain etiology, cannot exclude retained foreign body. Completely opacified left hemithorax without mediastinal shift remains present. Improving overlying subcutaneous emphysema noted. Background chronic emphysematous c hange right lung remains clear. Silhouetting left heart border again seen. Osseous structures are int act. IMPRESSION: Left-sided surgical change with chest tubes and probable mediastinal drainage catheter an d completely opacified left hemithorax without mediastinal shift all redemonstrated. Improving overl mauro subcutaneous emphysema noted. Cannot rule out retained foreign body which has been present since surgery between January 30 and February 02 studies. A Yellow level critical message alert has been initiated for Nathan Leroy MD via the [employer] | Critical Results System on 02/04/2020 6:42 AM. This message alert has been sent to Nathan ng MD via the preferences provided by the clinician for the receipt of Radiology Critical Findings. M essage ID [id number]."
[2020-02-04 07:09] LABS: Glucose,Whole Blood 141 mg/dL (75-99)
[2020-02-04] MEDS: INSULIN ASPART (NovoLOG) 100 UNIT/ML VIAL SQ SCH ×4 (07:11→20:45)
[2020-02-04] MEDS: PANTOPRAZOLE 40 MG TABLET PO SCH (07:12)
[2020-02-04] MEDS: metFORMIN 500 MG TAB PO SCH ×2 (07:12→16:36)
[2020-02-04] MEDS: DULoxetine HCL 60 MG CAPSULE.DR PO SCH (09:43)
[2020-02-04] MEDS: AMIODARONE 200 MG TAB PO SCH (09:43)
[2020-02-04] MEDS: MAGNESIUM OXIDE 400 MG TAB PO SCH ×2 (09:43→20:45)
[2020-02-04] MEDS ORDERED: Magnesium Replacement Protocol 1 EACH MISC MISCELLANE PRN (09:53)
--- NOTE | 2020-02-04 10:05 | P.PN ---
Subjective Progress Note Date: 02/04/20 Principal diagnosis: This is a 55-year-old female patient who follows with Dr. Leroy on an outpatient basis. She has a past medical history of poorly differentiated squamous cell carcinoma, status post left upper lobectomy on 12/31/2019, hypertension, hyperlipidemia, chronic tobacco abuse, type 2 diabetes mellitus, cervical cancer status post hysterectomy, anxiety and bipolar disorder. On 01/28/2020 she had a follow-up visit with Dr. Teddy Wilkins for her pathology results of her recent left upper lobectomy. Upon exam of her surgical incisions there was a fluctuant area which was painful to touch on her left chest. Subsequently she was started on oral Keflex. Yesterday morning she developed some drainage from that incision site with the fluctuant area, leaking foul smelling yellowish fluid. Her initial lab results showed a WBC count 12.0, Hgb 8.3, neutrophils 59%, positive band neutrophil percent 24 and neutrophil numbers 9.0. A chest x-ray was completed which demonstrated a normal and the left hydropneumothorax, with no significant interval changes. She was admitted to observation to determine further treatment plans and surgical incision with consultation placed to Dr. Teddy Wilkins. POD #1 left thoracotomey. total lung decortication, pectoralis major pedicle flap transposition into the left pleural space, cryoablation of the intercostal nerves. Postoperative acute blood loss anemia, an expected outcome of surgery. Postoperative hypotension, an expected outcome due to hypovolemia. On 02/04/2020 the patient was seen in follow-up at her bedside in the intensive care unit. She is sitting up to the bedside chair, she is alert, oriented 3. She is in no acute distress. Denies any complaints of shortness of breath and is complaining of some surgical type pain to her left chest tube insertion sites. She remains hemodynamically stable and is currently on no inotropic or pressor support. She did receive 2 250 mL 5% albumin and 1 unit of PRBCs last night for a hemoglobin of 7.9 and for some hypotension. Currently her blood pressure is 113/38 and her heart rate is sinus bradycardia 57 BPM. She remains with 3 left pleural chest tubes connected to low continuous wall suction -20 cm H2O. No air leak is present. Draining thin serosanguineous drainage. The anterior chest tubes drained 500 mL output since surgery and her posterior chest tube drained 130 mL output since surgery. She is achieving 1000 mL on her incentive spirometry with encouragement. Oxygen saturations are 98% on room air. Laboratory results morning show a WBC count 13.0, hemoglobin 7.9, platelets 515, BUN 14, creatinine 1.36 and magnesium 1.5. A repeat chest x-ray was completed this morning which demonstrated left-sided surgical changes with chest tubes and complete opacified left hemithorax without mediastinal shift. It also demonstrated improving overlying subcutaneous emphysema. She does have a Nolasco catheter in place for accurate I's and O's. Objective - Vital Signs Vital signs: Vital Signs Temp 97.7 F 02/04/20 09:00 Pulse 63 02/04/20 09:30 Resp 8 L 02/04/20 09:30 BP 104/53 02/04/20 09:30 Pulse Ox 93 L 02/04/20 09:30 Intake & Output 02/03/20 02/04/20 02/04/20 18:59 06:59 18:59 Intake Total 2860 2240 103 Output Total 600 805 119 Balance 2260 1435 -16 Weight 61.235 kg 67.2 kg Intake: IV 2300 1680 103 0.9 NS Pressure Bag 30 3 ACETAMINOPHEN IV (For NPO 100 ) 1,000 mg In Empty Bag 1 bag @ 400 mls/hr IVPB Q6HR [facility] Rx#:[id number] Albumin Human 5% 250 ml 250 In Empty Bag 1 bag @ 250 mls/hr IVPB ONCE STA Rx#: [id number] Meropenem 1 gm In Sodium 100 Chloride 0.9% 100 ml @ 200 mls/hr IVPB Q8H [facility] Rx#:[id number] Sodium Chloride 0.9% 1, 500 1200 100 000 ml @ 100 mls/hr IV . Q10H [facility] Rx#:[id number] Intake, IV Titration 250 250 Amount Albumin Human 5% 250 ml 250 In Empty Bag 1 bag @ 250 mls/hr IVPB ONCE ONE Rx#: [id number] Albumin Human 5% 250 ml 250 In Empty Bag 1 bag @ 250 mls/hr IVPB ONCE STA Rx#: [id number] Blood Product 310 310 Rc As-1 Unit 310 [id number] Rc As-1 Unit 310 [id number] Output: Chest Tube Drainage 615 94 Chest Tube Left Lateral 415 60 Chest Chest Tube Left Posterior 200 34 Chest Urine 250 190 25 Estimated Blood Loss 350 Other: Voiding Method Indwelling Catheter ABP, PAP, CO, CI - Last Documented Arterial Blood Pressure 106/33 - Exam This is a 55-year-old pleasant female patient who is resting comfortably in the bedside chair. She is in no acute distress. Oxygen saturations are 100 percent on room air. She is hemodynamically stable. - Constitutional General appearance: Present: average body habitus, cooperative, no acute distress - EENT Eyes: Present: PERRLA, normal appearance. Absent: scleral icterus ENT: Present: hearing grossly normal, normal oropharynx. Absent: thrush - Neck Details: Neck supple, no JVD. Neck: Absent: lymphadenopathy, stridor - Respiratory Details: Lung sounds essentially clear to her right lobes, diminished to her left lobes with some few scattered crackles. Respirations are symmetrical and nonlabored. Oxygen saturation is 100% on room air. Achieving 1000 mL on her incentive spirometry. Left pleural chest tubes remain in place to low continuous wall suction -20 cm H2O. No air leak is present. Draining thin serosanguineous drainage. - Cardiovascular Details: Regular rhythm with bradycardic rate. S1 and S2 present, negative for S3, gallop or murmur. No edema. Knee-high JOHAN hose and sequential compression devices in place her bilateral lower extremities. - Gastrointestinal Gastrointestinal Comment(s): Abdomen is soft, nontender and nondistended. Active bowel sounds present in all 4 abdominal quadrants. No guarding or rigidity. No organomegaly. - Genitourinary Genitourinary Comment(s): Nolasco catheter for accurate I&O draining clear yellow urine. - Integumentary Integumentary Comment(s): Skin is warm and dry. Dressings are clean, dry and approximated to her left chest. - Neurologic Neurologic: Present: CNII-XII intact - Musculoskeletal Musculoskeletal: Present: gait normal, generalized weakness, strength equal bilaterally - Psychiatric Psychiatric: Present: A&O x's 3, appropriate affect, intact judgment & insight - Allied health notes Allied health notes reviewed: nursing - Labs CBC & Chem 7: 02/04/20 04:30 02/04/20 04:30 Labs: Abnormal Lab Results - Last 24 Hours (Table) 01/31/20 02/03/20 02/03/20 Range/Units 12:39 11:16 16:50 WBC (3.8-10.6) k/uL RBC (3.80-5.40) m/uL Hgb (11.4-16.0) gm/dL Hct (34.0-46.0) % MCHC (31.0-37.0) g/dL RDW (11.5-15.5) % Plt Count (150-450) k/uL Neutrophils # (1.3-7.7) k/uL Lymphocytes # (1.0-4.8) k/uL Sodium (137-145) mmol/L Creatinine (0.52-1.04) mg/dL Glucose (74-99) mg/dL POC Glucose (mg/dL) 134 H 183 H (75-99) mg/dL Calcium (8.4-10.2) mg/dL Magnesium (1.6-2.3) mg/dL Vancomycin Trough ug/mL Crossmatch See Detail 02/03/20 02/03/20 02/03/20 Range/Units 17:40 17:40 17:40 WBC 18.0 H (3.8-10.6) k/uL RBC 3.07 L (3.80-5.40) m/uL Hgb 7.9 L (11.4-16.0) gm/dL Hct 25.5 L (34.0-46.0) % MCHC 30.9 L (31.0-37.0) g/dL RDW 16.3 H (11.5-15.5) % Plt Count 683 H (150-450) k/uL Neutrophils # 16.1 H (1.3-7.7) k/uL Lymphocytes # 0.9 L (1.0-4.8) k/uL Sodium 136 L (137-145) mmol/L Creatinine (0.52-1.04) mg/dL Glucose 155 H (74-99) mg/dL POC Glucose (mg/dL) (75-99) mg/dL Calcium 7.3 L (8.4-10.2) mg/dL Magnesium (1.6-2.3) mg/dL Vancomycin Trough 31.1 H* ug/mL Crossmatch 02/04/20 02/04/20 02/04/20 Range/Units 04:30 04:30 04:30 WBC 13.0 H (3.8-10.6) k/uL RBC 2.97 L (3.80-5.40) m/uL Hgb 7.9 L (11.4-16.0) gm/dL Hct 25.0 L (34.0-46.0) % MCHC (31.0-37.0) g/dL RDW 16.3 H (11.5-15.5) % Plt Count 515 H (150-450) k/uL Neutrophils # 10.8 H (1.3-7.7) k/uL Lymphocytes # (1.0-4.8) k/uL Sodium 136 L (137-145) mmol/L Creatinine 1.36 H (0.52-1.04) mg/dL Glucose 119 H (74-99) mg/dL POC Glucose (mg/dL) (75-99) mg/dL Calcium 7.4 L (8.4-10.2) mg/dL Magnesium 1.5 L (1.6-2.3) mg/dL Vancomycin Trough ug/mL Crossmatch 02/04/20 Range/Units 07:07 WBC (3.8-10.6) k/uL RBC (3.80-5.40) m/uL Hgb (11.4-16.0) gm/dL Hct (34.0-46.0) % MCHC (31.0-37.0) g/dL RDW (11.5-15.5) % Plt Count (150-450) k/uL Neutrophils # (1.3-7.7) k/uL Lymphocytes # (1.0-4.8) k/uL Sodium (137-145) mmol/L Creatinine (0.52-1.04) mg/dL Glucose (74-99) mg/dL POC Glucose (mg/dL) 141 H (75-99) mg/dL Calcium (8.4-10.2) mg/dL Magnesium (1.6-2.3) mg/dL Vancomycin Trough ug/mL Crossmatch Microbiology - Last 24 Hours (Table) 02/03/20 15:46 Gram Stain - Preliminary Other - Other Wound Culture - Preliminary 02/03/20 15:46 Anaerobic Culture - Preliminary Other - Other - Imaging and Cardiology Chest x-ray: report reviewed, image reviewed Assessment and Plan Assessment: 1. Empyema left chest status post left upper lobectomy, status post left thoracotomy, total lung decortication, pectoralis major pedicle flap transposition into the left pleural space, cryoablation of intercostal nerves. 2. Superficial wound, draining thin foul-smelling yellowish drainage 3. History of poorly differentiated squamous cell carcinoma, status post left upper lobectomy on 12/31/2019 4. History of hypertension 5. History of hyperlipidemia 6. Previous tobacco dependence 7. Type 2 diabetes 8. History of cervical cancer status post hysterectomy 9. History of anxiety/bipolar disorder 10. Postoperative acute blood loss anemia, an expected outcome 11. Postoperative hypotension, an expected outcome, resolved Plan: 1. Keep left pleural chest tubes to low continuous wall suction -20 cm H2O. Continue to monitor accurate I&O. 2. Encourage use of her incentive spirometry 10 times an hour while awake. 3. Continue to encourage smoking cessation. 4. Continue to hold Eliquis. 5. Keep Nolasco catheter in place for accurate I's and O's for another 24 hours. 6. Gram stain obtained in the operating room yesterday shows no organisms seen. Culture results remain pending. Initial culture from her left chest wound from 01/29/2020 showed gram-positive bacilli waiting final sensitivity report. 7. GI and DVT prophylaxis. 8. Out of bed for all meals. Increase activity as tolerated. 9. May require a PICC line placement for home IV antibiotic infusions. 10. Keep dressings in placed to her left chest today, we will remove her dressings tomorrow and repack her left chest wound. 11. Continue to monitor daily labs and chest x-rays. Replace electrolytes per protocol. 12. More recommendations to follow based on patient's clinical course. Time with Patient: Greater than 30
[2020-02-04] MEDS: MAGNESIUM SULFATE-D5W PMX 1 GM in DEXTROSE/WATER 1 100ML.BAG IVPB SCH ×2 (10:57→16:35)
[2020-02-04] MEDS: hydrALAZINE HCL 50 MG TAB PO SCH ×3 (11:33→20:47)
[2020-02-04] MEDS: BISOPROLOL 5 MG TAB PO SCH (11:33)
[2020-02-04] MEDS: VALSARTAN 160 MG TAB PO SCH (11:34)
[2020-02-04] MEDS ORDERED: ALBUMIN HUMAN 5% 250 ML in EMPTY BAG 1 BAG IVPB ONE (11:34)
[2020-02-04 12:31] LABS: Glucose,Whole Blood 275 mg/dL (75-99)
--- NOTE | 2020-02-04 13:42 | P.PN ---
Subjective Progress Note Date: 02/04/20 This is a 55-year-old female patient who follows with Dr. Leroy on an outpatient basis. She has a past medical history of poorly differentiated squamous cell carcinoma, status post left upper lobectomy on 12/31/2019, hypertension, hyperlipidemia, chronic tobacco abuse, type 2 diabetes mellitus, cervical cancer status post hysterectomy, anxiety and bipolar disorder. On 01/28/2020 she had a follow-up visit with Dr. Teddy Wilkins for her pathology results of her recent left upper lobectomy. Upon exam of her surgical incisions there was a fluctuant area which was painful to touch on her left chest. Subsequently she was started on oral Keflex. Yesterday morning she developed some drainage from that incision site with the fluctuant area, leaking foul smelling yellowish fluid. Her initial lab results showed a WBC count 12.0, Hgb 8.3, neutrophils 59%, positive band neutrophil percent 24 and neutrophil numbers 9.0. A chest x-ray was completed which demonstrated a normal and the left hydropneumothorax, with no significant interval changes. She was admitted to observation to determine further treatment plans and surgical incision with consultation placed to Dr. Teddy Wilkins. On 01/30/2020 the patient was seen on the fourth floor medical surgical unit on follow-up. She is resting comfortably in bed, is in no acute distress and denies any complaints of shortness of breath. The patient does report she is having some intermittent pain to her left chest where her incision is draining. She does have a dressing which is clean and intact to her left chest which continues to drain thick foul-smelling yellowish colored drainage. Her Gram stain yesterday shows many gram-positive bacilli and she remains on Keflex for antibiotic treatment. She is hemodynamically stable, remains afebrile, although this morning her blood pressure is 176/71. Oxygen saturations are 96% on room air. Culture results from her surgical site to her left chest remains pending. The patient is seen today 01/31/2020 in follow-up on the regular medical floor. She is a resting comfortably in bed. Awake and alert in no acute distress. She denies any worsening shortness of breath. She has a dry cough. She states when she coughs she does feel like air escapes from her left chest wound. The wound continues to drain purulent drainage. There is also noted blood clots. She is maintaining O2 saturation in the 90s on room air. She's currently afebrile. Wound cultures revealing gram-positive bacilli. White count 5.8. Hemoglobin 6.9. Platelet count 1044. Sodium 133. Potassium 4.2. Creatinine 0.41. She's been initiated on vancomycin and meropenem. Anticoagulated with Eliquis. Currently in sinus rhythm. On today's evaluation of 02/03/2020, the patient is laying comfortably in bed. No signs of any significant respiratory distress pH is still draining purulent stuff from the left chest area and the dressing is stuffed and soaked. The culture is positive for gram possible solicitous and the patient remains on vancomycin. She is also on IV Merrem. She is hemodynamically stable. She is off the Eliquis in preparation for surgical thoracoscopic evaluation for empyema. The white cell count is at 4.6. Hemoglobin stable at 8.2. She is in a sinus rhythm. She did have a bout of proximal atrial fibrillation following her lung surgery and she's been in sinus since. No altered mentation. No other significant events overnight. On 02/04/2020 on seeing this patient in follow-up in the intensive care unit. Noted the patient was taken for thoracotomy yesterday regarding the empyema. The surgery was done successfully. Estimated blood loss was 300 mL. The patient underwent a left thoracotomy and total lung decortication in addition to a pectoralis major pedicle flap transposition into the left pleural space. The patient underwent also cryoablation of the intercostal nerves. A total of 3 chest tubes were placed into the left hemithorax and the patient was following that extubated and sent to the intensive care unit. Overnight she did extremely well. She remained hemodynamically stable. This morning the patient is on room air oxygen and she is sitting up on a chair. She was provided incentive spirometer. Her pulse ox is 96%. She is to the off anticoagulation. 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 For now the current antibiotic coverage is a combination of Merrem and vancomycin. The patient postop required IV fluid resuscitation. She received a total of 2 of 250 mL of 5% albumin and unit of packed RBC which helped her overall hemodynamics. There chest tubes on the left have drained 500 mL in the anterior tubes and 130s disease in the posterior 2. The white cell count at 13.9. Hemoglobin is at 7.9. Creatinine is at 1.36. The chest x-ray shows that the tubes are in place and the patient has significant opacification of left hemithorax and also there is evidence of some improving subcu his emphysema. The patient has a Nolasco catheter in place. The patient is awake and alert and she denies having any specific complaints for now. Objective - Vital Signs Vital signs: Vital Signs Temp 97.7 F 02/04/20 09:00 Pulse 62 02/04/20 10:00 Resp 22 02/04/20 10:00 BP 102/45 02/04/20 10:00 Pulse Ox 96 02/04/20 10:00 Intake & Output 02/03/20 02/04/20 02/04/20 18:59 06:59 18:59 Intake Total 2860 2240 412 Output Total 600 805 174 Balance 2260 1435 238 Weight 61.235 kg 67.2 kg Intake: IV 2300 1680 412 0.9 NS Pressure Bag 30 12 ACETAMINOPHEN IV (For NPO 100 ) 1,000 mg In Empty Bag 1 bag @ 400 mls/hr IVPB Q6HR [facility] Rx#:[id number] Albumin Human 5% 250 ml 250 In Empty Bag 1 bag @ 250 mls/hr IVPB ONCE STA Rx#: [id number] Meropenem 1 gm In Sodium 100 Chloride 0.9% 100 ml @ 200 mls/hr IVPB Q8H [facility] Rx#:[id number] Sodium Chloride 0.9% 1, 500 1200 400 000 ml @ 100 mls/hr IV . Q10H [facility] Rx#:[id number] Intake, IV Titration 250 250 Amount Albumin Human 5% 250 ml 250 In Empty Bag 1 bag @ 250 mls/hr IVPB ONCE ONE Rx#: [id number] Albumin Human 5% 250 ml 250 In Empty Bag 1 bag @ 250 mls/hr IVPB ONCE STA Rx#: [id number] Blood Product 310 310 Rc As-1 Unit 310 [id number] Rc As-1 Unit 310 [id number] Output: Chest Tube Drainage 615 94 Chest Tube Left Lateral 415 60 Chest Chest Tube Left Posterior 200 34 Chest Urine 250 190 80 Estimated Blood Loss 350 Other: Voiding Method Indwelling Catheter Indwelling Catheter ABP, PAP, CO, CI - Last Documented Arterial Blood Pressure 108/39 - Exam This is a 55-year-old pleasant female patient who is resting comfortably in the bedside chair. She is in no acute distress. Oxygen saturations are 100 percent on room air. She is hemodynamically stable. - Constitutional General appearance: Present: average body habitus, cooperative, no acute distress - EENT Eyes: Present: PERRLA, normal appearance. Absent: scleral icterus ENT: Present: hearing grossly normal, normal oropharynx. Absent: thrush - Neck Details: Neck supple, no JVD. Neck: Absent: lymphadenopathy, stridor - Respiratory Details: Lung sounds essentially clear to her right lobes, diminished to her left lobes with some few scattered crackles. Respirations are symmetrical and nonlabored. Oxygen saturation is 100% on room air. Achieving 1000 mL on her incentive spirometry. Left pleural chest tubes remain in place to low continuous wall suction -20 cm H2O. No air leak is present. Draining thin serosanguineous drainage. - Cardiovascular Details: Regular rhythm with bradycardic rate. S1 and S2 present, negative for S3, gallop or murmur. No edema. Knee-high JOHAN hose and sequential compression devices in place her bilateral lower extremities. - Gastrointestinal Gastrointestinal Comment(s): Abdomen is soft, nontender and nondistended. Active bowel sounds present in all 4 abdominal quadrants. No guarding or rigidity. No organomegaly. - Genitourinary Genitourinary Comment(s): Nolasco catheter for accurate I&O draining clear yellow urine. - Integumentary Integumentary Comment(s): Skin is warm and dry. Dressings are clean, dry and approximated to her left chest. - Neurologic Neurologic: Present: CNII-XII intact - Musculoskeletal Musculoskeletal: Present: gait normal, generalized weakness, strength equal bilaterally - Psychiatric Psychiatric: Present: A&O x's 3, appropriate affect, intact judgment & insight - Labs CBC & Chem 7: 02/04/20 04:30 02/04/20 04:30 Labs: Abnormal Lab Results - Last 24 Hours (Table) 01/31/20 02/03/20 02/03/20 Range/Units 12:39 16:50 17:40 WBC (3.8-10.6) k/uL RBC (3.80-5.40) m/uL Hgb (11.4-16.0) gm/dL Hct (34.0-46.0) % MCHC (31.0-37.0) g/dL RDW (11.5-15.5) % Plt Count (150-450) k/uL Neutrophils # (1.3-7.7) k/uL Lymphocytes # (1.0-4.8) k/uL Sodium (137-145) mmol/L Creatinine (0.52-1.04) mg/dL Glucose (74-99) mg/dL POC Glucose (mg/dL) 183 H (75-99) mg/dL Calcium (8.4-10.2) mg/dL Magnesium (1.6-2.3) mg/dL Vancomycin Trough 31.1 H* ug/mL Crossmatch See Detail 02/03/20 02/03/20 02/04/20 Range/Units 17:40 17:40 04:30 WBC 18.0 H (3.8-10.6) k/uL RBC 3.07 L (3.80-5.40) m/uL Hgb 7.9 L (11.4-16.0) gm/dL Hct 25.5 L (34.0-46.0) % MCHC 30.9 L (31.0-37.0) g/dL RDW 16.3 H (11.5-15.5) % Plt Count 683 H (150-450) k/uL Neutrophils # 16.1 H (1.3-7.7) k/uL Lymphocytes # 0.9 L (1.0-4.8) k/uL Sodium 136 L 136 L (137-145) mmol/L Creatinine 1.36 H (0.52-1.04) mg/dL Glucose 155 H 119 H (74-99) mg/dL POC Glucose (mg/dL) (75-99) mg/dL Calcium 7.3 L 7.4 L (8.4-10.2) mg/dL Magnesium (1.6-2.3) mg/dL Vancomycin Trough ug/mL Crossmatch 02/04/20 02/04/20 02/04/20 Range/Units 04:30 04:30 07:07 WBC 13.0 H (3.8-10.6) k/uL RBC 2.97 L (3.80-5.40) m/uL Hgb 7.9 L (11.4-16.0) gm/dL Hct 25.0 L (34.0-46.0) % MCHC (31.0-37.0) g/dL RDW 16.3 H (11.5-15.5) % Plt Count 515 H (150-450) k/uL Neutrophils # 10.8 H (1.3-7.7) k/uL Lymphocytes # (1.0-4.8) k/uL Sodium (137-145) mmol/L Creatinine (0.52-1.04) mg/dL Glucose (74-99) mg/dL POC Glucose (mg/dL) 141 H (75-99) mg/dL Calcium (8.4-10.2) mg/dL Magnesium 1.5 L (1.6-2.3) mg/dL Vancomycin Trough ug/mL Crossmatch 02/04/20 Range/Units 12:29 WBC (3.8-10.6) k/uL RBC (3.80-5.40) m/uL Hgb (11.4-16.0) gm/dL Hct (34.0-46.0) % MCHC (31.0-37.0) g/dL RDW (11.5-15.5) % Plt Count (150-450) k/uL Neutrophils # (1.3-7.7) k/uL Lymphocytes # (1.0-4.8) k/uL Sodium (137-145) mmol/L Creatinine (0.52-1.04) mg/dL Glucose (74-99) mg/dL POC Glucose (mg/dL) 275 H (75-99) mg/dL Calcium (8.4-10.2) mg/dL Magnesium (1.6-2.3) mg/dL Vancomycin Trough ug/mL Crossmatch Microbiology - Last 24 Hours (Table) 01/29/20 09:00 Gram Stain - Final Chest Wound Culture - Preliminary Actinomyces odontolyticus 02/03/20 15:46 Gram Stain - Preliminary Other - Other Wound Culture - Preliminary 02/03/20 15:46 Anaerobic Culture - Preliminary Other - Other Assessment and Plan Plan: 1 left lung empyema and the patient is post left upper lobectomy on 12/31/2019 , with cultures indicating actinomyces infection. The patient was taken to the operating room and the patient underwent a left thoracotomy, total left decor tication, pectoralis major pedicle flap transposition into the left pleural space in addition to cryoablation of the intercostal nerves. She is postop day #1. The patient is currently in the intensive care unit on room air oxygen. Chest x-rays from this morning shows opacification of left lung with the chest tubes being in place. Output from the chest was been noted. The patient is hemodynamically stable. The patient is a patient with low continuous suction and there is no evidence of any air leak. The patient is still on meropenem and vancomycin. 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 Pleural VAC and suction at 20 cm of water Monitor output from the chest tubes No need for any anticoagulation for now Discussed the cultures with infectious disease and he said antibiotic treatment. The patient has an ALLERGY to penicillins however she's been tolerating natalie openem and vancomycin. I reviewed treatment for actinomyces infection is penicillin to which the patient is ALLERGIC. She is able to tolerate meropenem however. Monitor hemoglobin Monitor daily chest x-rays Monitor renal function Monitor blood sugars Monitor surgical wound Keep the chest tube in place for today We'll continue to follow make further recommendations based on overall progress. She'll be kept in ICU for 24 hours and be moved out of the ICU by tomorrow.
--- NOTE | 2020-02-04 15:15 | P.PN ---
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 Patient had seen cardiothoracic surgeon Dr. Wilkins yesterday, started on oral Keflex. Afebrile, WBC12, vital signs stable. Hemoglobin 8.3, sodium 131, potassium 3.1, magnesium 1.5. Alkaline phosphatase mildly elevated 134. Chest x-ray reporting known left hydropneumothorax, trachea midline, right lung clear. EKG reporting normal sinus rhythm, lateral infarct, age undet ermined. Troponin negative 1. Denies chest pain, palpitations or shortness of breath. Denies lightheadedness, dizziness or focal deficits. 01/30/2020: The patient was not discharged last night as a potassium of return to normal. She does have a small leukocytosis which may be consistent with her recent surgeries and lung cancer, however a repeat is pending for this morning. I discussed the case currently with thoracic surgery and they felt that because of the white count, Keflex and discharged to be held. We discussed pulmonology consult which was done. That is in progress and they had ordered a CT chest showing an air-fluid level and dense consolidation remainder of the lung left lo be after left upper lobectomy. The margins suggested infection. Currently she's been placed on meropenem. Her wound continues to drain. Cultures are pending, but currently show no growth. He denies any significant chest pains, pressures, or shortness of breath this time. She denies any nausea or vomiting. She reports her appetite is little bit improved. She had not been eating well recently due to her cancer and treatment. Potassium this morning is 3.2. 01/31/2020: Her case was discussed with vascular surgery, they will plan a a large debridement of her chest wound in the next 48 hours. She remains on amiodarone and Elequis for anticoagulation due to atrial fibrillation. She continues on meropenem and vancomycin for her Lung empyema after robotically assisted left upper lobectomy for squamous cell carcinoma. He remains on bisoprolol for blood pressure control, but it remains somewhat elevated. Hemoglobin is dropped from 8.3 down to 6.4. A stat repeat is now 6.9. Her plat elets continue to be elevated, most likely reactive, now 1044. She remains hyponatremic at 133. She denies any significant chest pains, pressures, or shortness of breath other than with exertion. She denies any significant nausea or vomiting. Staff reports she is complaining some vaginal itching and irritation. Potassium is now up to 4.2 today. 02/01/2020 Wound cultures reporting gram-positive bacilli isolated. Maintained on vancomycin, Merrem. Continues having purulent drainage from lateral left chest incision site. Tested negative for coronavirus. Afebrile, WBC WNL. Hemoglobin 8.2. Telemetry sinus rhythm. Denies chest pain, palpitations. 02/02/2020 received Eliquis yesterday, surgery, rescheduled for tomorrow for 02/03/20. Hypertensive, hydralazine initiated yesterday. Drainage continues. Afebrile, WBC within normal limits. Maintaining O2 sats in the 90s on room air. Hemoglobin 10.1. 02/03/2020 NPO, Eliquis remains on hold. OR pending. Hypertensive. Hemoglobin 8.8. Continues maintaining O2 sats in the mid 90s on room air. Afebrile, WBC WNL. 02/04/2020 yesterday underwent left thoracotomey. total lung decortication, pectoralis major pedicle flap transposition into the left pleural space, cryoablation of the intercostal nerves, with placement of 3 left pleural chest tubes,tolerated procedure well. Left pleural chest tube insertion sites discomfort. Maintaining O2 sats in the 90s on room air. Incentive spirometer up to 1000. Maintained on vancomycin, Merrem Chest x-ray reporting surgical changes, chest tubes, complete opacified left hemothorax with mediastinal shift, improving subcutaneous emphysema. Eliquis remains on hold. Wound culture rep orting gram-positive bacilli. Telemetry sinus bradycardia. Hemoglobin 7.9, received 1 unit postop of packed RBCs in addition to IV fluid resuscitation, albumin. Borderline hypotension with systolic blood pressures in the low 90s, MAP 61. Objective - Vital Signs Vital signs: Vital Signs Temp 97.7 F 02/04/20 09:00 Pulse 62 02/04/20 10:00 Resp 22 02/04/20 10:00 BP 102/45 04/23/20 10:00 Pulse Ox 96 02/04/20 10:00 Intake & Output 02/03/20 02/04/20 02/04/20 18:59 06:59 18:59 Intake Total 2860 2240 412 Output Total 600 805 174 Balance 2260 1435 238 Weight 61.235 kg 67.2 kg Intake: IV 2300 1680 412 0.9 NS Pressure Bag 30 12 ACETAMINOPHEN IV (For NPO 100 ) 1,000 mg In Empty Bag 1 bag @ 400 mls/hr IVPB Q6HR [facility]S [facility] 234 BEDS AT THE [facility] Rx#:[id number] Albumin Human 5% 250 ml 250 In Empty Bag 1 bag @ 250 mls/hr IVPB ONCE [facility] Rx#: [id number] Meropenem 1 gm In Sodium 100 Chloride 0.9% 100 ml @ 200 mls/hr IVPB Q8H COUNTS INCLUDE 234 BEDS AT THE [facility] Rx#:[id number] Sodium Chloride 0.9% 1, 500 1200 400 000 ml @ 100 mls/hr IV . Q10H COUNTS INCLUDE 234 BEDS AT THE [facility] Rx#:[id number] Intake, IV Titration 250 250 Amount Albumin Human 5% 250 ml 250 In Empty Bag 1 bag @ 250 mls/hr IVPB ONCE ONE Rx#: [id number] Albumin Human 5% 250 ml 250 In Empty Bag 1 bag @ 250 mls/hr IVPB ONCE [facility] Rx#: [id number] Blood Product 310 310 Rc As-1 Unit 310 [id number] Rc As-1 Unit 310 [id number] Output: Chest Tube Drainage 615 94 Chest Tube Left Lateral 415 60 Chest Chest Tube Left Posterior 200 34 Chest Urine 250 190 80 Estimated Blood Loss 350 Other: Voiding Method Indwelling Catheter Indwelling Catheter ABP, PAP, CO, CI - Last Documented Arterial Blood Pressure 108/39 - Exam GENERAL: Sitting up in chair, no acute distress NECK: No JVD. No thyroid enlargement. No LNs CARDIOVASCULAR: S1, S2 regular. No murmur RESPIRATION: Nonlabored. Breath sounds diminished. Occasional scattered fine crackles. Left pleural chest tubes 3 with serosanguineous drainage. ABDOMEN: Soft, nontender . No guarding. no masses palpable. Positive Bowel sounds. LEGS: No edema. no swelling. No clubbing, no cyanosis PSYCHIATRY: Alert and oriented X3, mood and affect normal. NERVOUS SYSTEM: Cranial N 2-12 grossly normal. Moves all 4 limbs. No focal deficits. Strength and sensation grossly intact.. Skin: Left lateral prior lobectomy incisional site dressing clean dry and i ntact. Microbiology 01/29/20 09:00 Chest Gram Stain - Final 01/29/20 09:00 Chest Wound Culture - Preliminary Actinomyces odontolyticus 02/03/20 15:46 Other - Other Gram Stain - Preliminary 02/03/20 15:46 Other - Other Wound Culture - Preliminary 02/03/20 15:46 Other - Other Anaerobic Culture - Preliminary - Labs CBC & Chem 7: 02/04/20 04:30 02/04/20 04:30 Labs: Abnormal Lab Results - Last 24 Hours (Table) 01/31/20 02/03/20 02/03/20 Range/Units 12:39 16:50 17:40 WBC (3.8-10.6) k/uL RBC (3.80-5.40) m/uL Hgb (11.4-16.0) gm/dL Hct (34.0-46.0) % MCHC (31.0-37.0) g/dL RDW (11.5-15.5) % Plt Count (150-450) k/uL Neutrophils # (1.3-7.7) k/uL Lymphocytes # (1.0-4.8) k/uL Sodium (137-145) mmol/L Creatinine (0.52-1.04) mg/dL Glucose (74-99) mg/dL POC Glucose (mg/dL) 183 H (75-99) mg/dL Calcium (8.4-10.2) mg/dL Magnesium (1.6-2.3) mg/dL Vancomycin Trough 31.1 H* ug/mL Crossmatch See Detail 02/03/20 02/03/20 02/04/20 Range/Units 17:40 17:40 04:30 WBC 18.0 H (3.8-10.6) k/uL RBC 3.07 L (3.80-5.40) m/uL Hgb 7.9 L (11.4-16.0) gm/dL Hct 25.5 L (34.0-46.0) % MCHC 30.9 L (31.0-37.0) g/dL RDW 16.3 H (11.5-15.5) % Plt Count 683 H (150-450) k/uL Neutrophils # 16.1 H (1.3-7.7) k/uL Lymphocytes # 0.9 L (1.0-4.8) k/uL Sodium 136 L 136 L (137-145) mmol/L Creatinine 1.36 H (0.52-1.04) mg/dL Glucose 155 H 119 H (74-99) mg/dL POC Glucose (mg/dL) (75-99) mg/dL Calcium 7.3 L 7.4 L (8.4-10.2) mg/dL Magnesium (1.6-2.3) mg/dL Vancomycin Trough ug/mL Crossmatch 02/04/20 02/04/20 02/04/20 Range/Units 04:30 04:30 07:07 WBC 13.0 H (3.8-10.6) k/uL RBC 2.97 L (3.80-5.40) m/uL Hgb 7.9 L (11.4-16.0) gm/dL Hct 25.0 L (34.0-46.0) % MCHC (31.0-37.0) g/dL RDW 16.3 H (11.5-15.5) % Plt Count 515 H (150-450) k/uL Neutrophils # 10.8 H (1.3-7.7) k/uL Lymphocytes # (1.0-4.8) k/uL Sodium (137-145) mmol/L Creatinine (0.52-1.04) mg/dL Glucose (74-99) mg/dL POC Glucose (mg/dL) 141 H (75-99) mg/dL Calcium (8.4-10.2) mg/dL Magnesium 1.5 L (1.6-2.3) mg/dL Vancomycin Trough ug/mL Crossmatch Microbiology - Last 24 Hours (Table) 01/29/20 09:00 Gram Stain - Final Chest Wound Culture - Preliminary Actinomyces odontolyticus 02/03/20 15:46 Gram Stain - Preliminary Other - Other Wound Culture - Preliminary 02/03/20 15:46 Anaerobic Culture - Preliminary Other - Other Assessment and Plan Assessment: (1) Hydropneumothorax, status post left thoracotomey. total lung decortication, pectoralis major pedicle flap transposition into the left pleural space, cryoablation of the intercostal nerves.Cultures reporting actinomyces. Current Visit: Yes Status: Acute Priority: High Code(s): J94.8 - OTHER SPECIFIED PLEURAL CONDITIONS SNOMED Code(s): 98911123 (2) Cavitary lesion of lung Current Visit: No Status: Acute Priority: High Code(s): J98.4 - OTHER DISORDERS OF LUNG SNOMED Code(s): 485759613 (3) Hypokalemia Current Visit: Yes Status: Acute Priority: High Code(s): E87.6 - HYPOKALEMIA SNOMED Code(s)92331201 (4) Microcytic acute anemia secondary to left lung empyema, status post transfusion and packed RBCs Current Visit: Yes Status: Chronic Priority: Medium Code(s): D50.9 - IRON DEFICIENCY ANEMIA, UNSPECIFIED SNOMED Code(s): 756362362 (5)Poorly differentiated squamous cell CA, left upper lobe Current Visit: Yes Status: Acute Code(s): C34.90 - MALIGNANT NEOPLASM OF UNSP PART OF UNSP BRONCHUS OR LUNG SNOMED Code(s): 934027973 (6) S/P lobectomy of lung with draining from prior recent left upper lobectomy incisional site, cultures reporting gram-positive bacilli isolated. Current Visit: Yes Status: Chronic Priority: Low Code(s): Z90.2 - ACQUIRED ABSENCE OF LUNG [PART OF] SNOMED Code(s): 41568513668983178 (7) Essential (primary) hypertension Current Visit: No Status: Acute Code(s): I10 - ESSENTIAL (PRIMARY) HYPERTENSION SNOMED Code(s): 42554557 (8) Hyponatremia Current Visit: Yes Status: Acute Code(s): E87.1 - HYPO-OSMOLALITY AND HYPONATREMIA SNOMED Code(s): 08720004 (9)Major depressive disorder, recurrent, moderate Current Visit: No Status: Acute Code(s): F33.1 - MAJOR DEPRESSIVE DISORDER, RECURRENT, MODERATE SNOMED Code(s): 988240642 (10)Type 2 diabetes mellitus without complications Current Visit: No Status: Acute Code(s): E11.9 - TYPE 2 DIABETES MELLITUS WITHOUT COMPLICATIONS SNOMED Code(s): 112246271 (11) Fibromyalgia Current Visit: Yes Status: Acute Code(s): M79.7 - FIBROMYALGIA SNOMED Code(s): 966864239 (12) hypomagnesemia (13)Possible SIADH related to Lung CA (14) Paroxysmal atrial fibrillation Current Visit: Yes Status: Chronic Priority: Medium Code(s): I48.0 - PAROXYSMAL ATRIAL FIBRILLATION SNOMED Code(s): 850302690 (15) hypoproteinemia Plan: Continue on current medication regime ,monitoring and symptomatic treatment. Pain management. Aggressive pulmonary toileting. Eliquis remains on hold. Continue on vancomycin, Merrem. Infectious disease consult in place, recommendations pending. The impression and plan of care has been dictated as directed. : I performed a history and examination of this patient, discussed the same with the dictator. I agree with the dictator's note ,documented as a scribe. Any additional findings or plans will be noted.
[2020-02-04 16:35] LABS: Glucose,Whole Blood 178 mg/dL (75-99)
[2020-02-04] MEDS: metroNIDAZOLE 500 MG TAB PO SCH ×2 (16:36→20:47)
[2020-02-04] MEDS: SODIUM CHLORIDE 0.9% 1,000 ML IV SCH (16:46)
--- NOTE | 2020-02-04 17:10 | P.CONS ---
History of Present Illness - Reason for Consult Consult date: 02/04/20 empyema left lung Requesting physician: Hunter Vu Jr - Chief Complaint pain and drainage from left chest wall incision x days - History of Present Illness Patient is a 55-year-old female past medical history significant for poorly differentiated squamous cell carcinoma left lung in this patient who status post a left upper lobe lobectomy on December 31, 2019 patient presented to the [facility] ER on January 29, 2020 about a month later with a chief com plaints of increasing pain swelling and some drainage from the incision site of the left chest patient mention the area started getting swollen and red and painful pain described to be throbbing almost 10 out of 10 the areas subsequently opened up with drainage of some thin yellow fluid some blood mixed in it that is of the pain patient was evaluated by the ER physician on arrival she has been afebrile did have initially normal white count however white count was up to 18,000 yesterday chest x-ray has been left hydropneumothorax the multiple air within the pleural space increase fluid decreased subsequently the patient have a CT of the chest on the which shows residual left apical cavi ty with air-fluid level dense consolidation nearly entire left lung, patient was taken to the OR yesterday and is status post laparotomy and left lung decortication chest tube placement patient is currently being treated with meropenem and vancomycin infectious was consulted for further recommendation about antibiotic therapy Review of Systems Positive point has been mentioned HPI rest of the systems are negative Past Medical History Past Medical History: Cancer, COPD, Diabetes Mellitus, Fibromyalgia, Hyperlipidemia, Hypertension Additional Past Medical History / Comment(s): HX OF CERVICAL CANCER WITH HYSTERECTOMY, NEW DIAGNOSIS LUNG CANCER., STATES SOB AT TIMES, COUGHING UP BLOOD. History of Any Multi-Drug Resistant Organisms: None Reported Past Surgical History: Hysterectomy Additional Past Surgical History / Comment(s): VAGINAL HYSTERECTOMY, upper left lobectomy Past Anesthesia/Blood Transfusion Reactions: No Reported Reaction, Motion Sickness Past Psychological History: Anxiety, Bipolar, Depression Smoking Status: Former smoker Past Alcohol Use History: None Reported Past Drug Use History: None Reported - Past Family History Mother Family Medical History: Cancer, Diabetes Mellitus Additional Family Medical History / Comment(s): BREAST CANCER Father Family Medical History: Cancer Additional Family Medical History / Comment(s): LUNG CANCER Medications and Allergies Home Medications Medication Instructions Recorded Confirmed Type DULoxetine HCL [Cymbalta] 60 mg PO DAILY 06/04/16 01/29/20 History Acetaminophen Tab [Tylenol] 325 mg PO Q6H PRN 11/30/19 01/29/20 History metFORMIN HCL 500 mg PO BID 12/28/19 01/29/20 History Albuterol Inhaler [Ventolin Hfa 2 puff INHALATION RT-QID PRN 01/29/20 01/29/20 History Inhaler] Amiodarone [Cordarone] 200 mg PO DAILY 01/29/20 01/29/20 History Apixaban [Eliquis] 5 mg PO BID 01/29/20 01/29/20 History Bisoprolol Fumarate [Zebeta] 10 mg PO DAILY 01/29/20 01/29/20 History Cephalexin [Keflex] 500 mg PO QID 01/29/20 01/29/20 History Magnesium Oxide [Mag-Ox] 400 mg PO BID #0 tab 01/29/20 Rx Pantoprazole Sodium 40 mg PO AC-BRKFST 01/29/20 01/29/20 History Allergies Allergy/AdvReac Type Severity Reaction Status Date / Time mold Allergy Unknown Dyspnea, Verified 01/29/20 09:45 Rash, Swelling Penicillins Allergy Unknown Verified 01/29/20 09:45 Childhood Physical Exam Vitals: Vital Signs Temp Pulse Resp BP Pulse Ox 02/04/20 16:00 98.6 F 64 22 101/49 96 02/04/20 15:30 67 25 H 96/55 98 02/04/20 15:00 58 L 18 86/44 97 02/04/20 14:30 59 L 16 85/48 95 02/04/20 14:00 58 L 16 94/45 95 02/04/20 13:30 61 19 94/48 96 02/04/20 13:00 60 24 105/63 93 L 02/04/20 12:30 67 21 95/49 94 L 02/04/20 12:00 97.6 F 60 16 90/47 92 L 02/04/20 11:30 63 18 91/43 93 L 02/04/20 11:00 67 25 H 98/45 95 02/04/20 10:30 64 17 102/49 94 L 02/04/20 10:00 62 22 102/45 96 02/04/20 09:30 63 8 L 104/53 93 L 02/04/20 09:00 97.7 F 57 L 22 113/66 98 02/04/20 08:30 57 L 24 117/61 97 02/04/20 08:00 66 24 118/51 93 L 02/04/20 07:00 56 L 16 113/60 99 02/04/20 06:30 52 L 18 108/47 98 02/04/20 06:00 57 L 20 114/58 96 02/04/20 05:30 56 L 20 117/56 95 02/04/20 05:00 56 L 25 H 98/60 97 02/04/20 04:30 57 L 21 108/64 96 02/04/20 04:00 98.2 F 51 L 18 104/55 100 02/04/20 03:30 54 L 15 102/50 99 02/04/20 03:00 54 L 12 101/52 99 02/04/20 02:30 55 L 15 95/49 98 02/04/20 02:15 98 F 58 L 14 95/49 99 02/04/20 02:00 54 L 13 97/44 99 02/04/20 01:30 57 L 13 92/49 99 02/04/20 01:00 57 L 18 105/57 99 02/04/20 00:30 62 18 99/51 98 02/04/20 00:00 98 F 58 L 14 92/49 98 02/03/20 23:30 58 L 11 L 98 02/03/20 23:08 57 L 12 92/49 98 02/03/20 23:00 57 L 14 91/49 98 02/03/20 22:38 97.9 F 56 L 17 91/49 99 02/03/20 22:30 57 L 16 88/44 99 02/03/20 22:29 98 F 57 L 18 88/77 99 02/03/20 22:28 98 F 58 L 18 88/44 99 02/03/20 22:00 57 L 11 L 92/55 98 02/03/20 21:30 56 L 11 L 92/55 98 02/03/20 21:00 56 L 13 85/48 99 02/03/20 20:30 60 15 85/48 99 02/03/20 20:00 97.7 F 58 L 10 L 96/61 98 02/03/20 19:30 59 L 9 L 96/61 98 02/03/20 19:00 61 12 96/61 98 02/03/20 18:45 61 10 L 98 02/03/20 18:30 62 14 94/64 99 02/03/20 18:15 62 10 L 80/58 98 02/03/20 18:00 64 10 L 80/58 99 02/03/20 17:45 62 10 L 90/58 99 02/03/20 17:30 61 10 L 89/54 99 02/03/20 17:15 66 19 92/60 99 02/03/20 17:03 99 02/03/20 17:00 63 11 L 94/76 99 Intake and Output 02/04/20 02/04/20 02/04/20 06:59 14:59 22:59 Intake Total 1334 2574 Output Total 390 324 Balance 944 2250 Intake: IV 1024 1074 0.9 NS Pressure Bag 24 24 ACETAMINOPHEN IV (For NPO 100 ) 1,000 mg In Empty Bag 1 bag @ 400 mls/hr IVPB Q6HR [facility] Rx#:[id number] Albumin Human 5% 250 ml 250 In Empty Bag 1 bag @ 250 mls/hr IVPB ONCE [facility] Rx#: [id number] Meropenem 1 gm In Sodium 100 Chloride 0.9% 100 ml @ 200 mls/hr IVPB Q8H [facility] Rx#:[id number] Sodium Chloride 0.9% 1, 800 800 000 ml @ 100 mls/hr IV . Q10H [facility] Rx#:[id number] Oral 1500 Blood Product 310 Rc As-1 Unit 310 [id number] Output: Chest Tube Drainage 260 189 Chest Tube Left Lateral 230 135 Chest Chest Tube Left Posterior 30 54 Chest Urine 130 135 Other: Voiding Method Indwelling Catheter Indwelling Catheter Weight 67.2 kg ABP, PAP, CO, CI - Last 8 Hours Arterial Blood Pressure 97/35 Arterial Blood Pressure 108/39 Arterial Blood Pressure 106/33 Arterial Blood Pressure 107/34 GENERAL DESCRIPTION: Middle-aged female up in the chair, no distress. No tachypnea or accessory muscle of respiration use. HEENT: Shows Pallor , no scleral icterus. Oral mucous membrane is dry. No pharyngeal erythema or thrush NECK: Trachea central, no thyromegaly. LUNGS: Unlabored breathing. Decreased breath sound at base. No wheeze or crackle. HEART: S1, S2, regular rate and rhythm. No loud murmur ABDOMEN: Soft, no tenderness , guarding or rigidity, no organomegaly EXTREMITIES: No edema of feet. SKIN: No rash, no masses palpable. NEUROLOGICAL: The patient is awake, alert, oriented x3, mood and affect normal. Results CBC & Chem 7: 02/04/20 04:30 02/04/20 04:30 Labs: Abnormal Lab Results - Last 24 Hours (Table) 01/31/20 02/03/20 02/03/20 Range/Units 12:39 17:40 17:40 WBC 18.0 H (3.8-10.6) k/uL RBC 3.07 L (3.80-5.40) m/uL Hgb 7.9 L (11.4-16.0) gm/dL Hct 25.5 L (34.0-46.0) % MCHC 30.9 L (31.0-37.0) g/dL RDW 16.3 H (11.5-15.5) % Plt Count 683 H (150-450) k/uL Neutrophils # 16.1 H (1.3-7.7) k/uL Lymphocytes # 0.9 L (1.0-4.8) k/uL Sodium (137-145) mmol/L Creatinine (0.52-1.04) mg/dL Glucose (74-99) mg/dL POC Glucose (mg/dL) (75-99) mg/dL Calcium (8.4-10.2) mg/dL Magnesium (1.6-2.3) mg/dL Vancomycin Trough 31.1 H* ug/mL Crossmatch See Detail 02/03/20 02/04/20 02/04/20 Range/Units 17:40 04:30 04:30 WBC 13.0 H (3.8-10.6) k/uL RBC 2.97 L (3.80-5.40) m/uL Hgb 7.9 L (11.4-16.0) gm/dL Hct 25.0 L (34.0-46.0) % MCHC (31.0-37.0) g/dL RDW 16.3 H (11.5-15.5) % Plt Count 515 H (150-450) k/uL Neutrophils # 10.8 H (1.3-7.7) k/uL Lymphocytes # (1.0-4.8) k/uL Sodium 136 L 136 L (137-145) mmol/L Creatinine 1.36 H (0.52-1.04) mg/dL Glucose 155 H 119 H (74-99) mg/dL POC Glucose (mg/dL) (75-99) mg/dL Calcium 7.3 L 7.4 L (8.4-10.2) mg/dL Magnesium (1.6-2.3) mg/dL Vancomycin Trough ug/mL Crossmatch 02/04/20 02/04/20 02/04/20 Range/Units 04:30 07:07 12:29 WBC (3.8-10.6) k/uL RBC (3.80-5.40) m/uL Hgb (11.4-16.0) gm/dL Hct (34.0-46.0) % MCHC (31.0-37.0) g/dL RDW (11.5-15.5) % Plt Count (150-450) k/uL Neutrophils # (1.3-7.7) k/uL Lymphocytes # (1.0-4.8) k/uL Sodium (137-145) mmol/L Creatinine (0.52-1.04) mg/dL Glucose (74-99) mg/dL POC Glucose (mg/dL) 141 H 275 H (75-99) mg/dL Calcium (8.4-10.2) mg/dL Magnesium 1.5 L (1.6-2.3) mg/dL Vancomycin Trough ug/mL Crossmatch 02/04/20 Range/Units 16:32 WBC (3.8-10.6) k/uL RBC (3.80-5.40) m/uL Hgb (11.4-16.0) gm/dL Hct (34.0-46.0) % MCHC (31.0-37.0) g/dL RDW (11.5-15.5) % Plt Count (150-450) k/uL Neutrophils # (1.3-7.7) k/uL Lymphocytes # (1.0-4.8) k/uL Sodium (137-145) mmol/L Creatinine (0.52-1.04) mg/dL Glucose (74-99) mg/dL POC Glucose (mg/dL) 178 H (75-99) mg/dL Calcium (8.4-10.2) mg/dL Magnesium (1.6-2.3) mg/dL Vancomycin Trough ug/mL Crossmatch Microbiology - Last 24 Hours (Table) 01/29/20 09:00 Gram Stain - Final Chest Wound Culture - Preliminary Actinomyces odontolyticus 02/03/20 15:46 Gram Stain - Preliminary Other - Other Wound Culture - Preliminary 02/03/20 15:46 Anaerobic Culture - Preliminary Other - Other Assessment and Plan Assessment: 1-patient with a history of poorly differentiated squamous cell carcinoma of the left lung in this patient with status post left upper lobectomy on December 31, 2019 now presented to hospital with significant drainage from her incision site in this patient has been diagnosed with empyema of the left lung and this patient was taken to the OR yesterday and is status post left thoracotomy and total lung decortication the initial culture done on January 28 are now showing actinomyces species over culture done yesterday currently pending patient did not have any blood cultures done this admission. 2-patient with penicillin allergy that would limit the number of antibiotics safe to use (1) Empyema of left pleural space Current Visit: Yes Status: Acute Code(s): J86.9 - PYOTHORAX WITHOUT FISTULA SNOMED Code(s): 65423376 Plan: 1-discontinue the meropenem and vancomycin 2-antibiotic adjusted to Rocephin 2 g daily and oral Flagyl 3-she will likely need PICC line for outpatient IV antibiotic therapy We will follow on clinical condition and cultures to further adjust medication if needed Thank you for this consultation will follow this patient along with you Time with Patient: Greater than 30
--- NOTE | 2020-02-04 17:12 | P.CONS ---
History of Present Illness - Reason for Consult Consult date: 02/03/20 empyema left lung Requesting physician: Hunter uV Jr - History of Present Illness Patient admitted to hospital on January 28, infectious consult was written on the evening of February 02, 2020, patient could not be seen on consultation today as the patient has been in the OR most of the day Past Medical History Past Medical History: Cancer, COPD, Diabetes Mellitus, Fibromyalgia, Hyperlipidemia, Hypertension Additional Past Medical History / Comment(s): HX OF CERVICAL CANCER WITH HYSTERECTOMY, NEW DIAGNOSIS LUNG CANCER., STATES SOB AT TIMES, COUGHING UP BLOOD. History of Any Multi-Drug Resistant Organisms: None Reported Past Surgical History: Hysterectomy Additional Past Surgical History / Comment(s): VAGINAL HYSTERECTOMY, upper left lobectomy Past Anesthesia/Blood Transfusion Reactions: No Reported Reaction, Motion Sickness Past Psychological History: Anxiety, Bipolar, Depression Smoking Status: Former smoker Past Alcohol Use History: None Reported Past Drug Use History: None Reported - Past Family History Mother Family Medical History: Cancer, Diabetes Mellitus Additional Family Medical History / Comment(s): BREAST CANCER Father Family Medical History: Cancer Additional Family Medical History / Comment(s): LUNG CANCER Medications and Allergies Home Medications Medication Instructions Recorded Confirmed Type DULoxetine HCL [Cymbalta] 60 mg PO DAILY 06/04/16 01/29/20 History Acetaminophen Tab [Tylenol] 325 mg PO Q6H PRN 11/30/19 01/29/20 History metFORMIN HCL 500 mg PO BID 12/28/19 01/29/20 History Albuterol Inhaler [Ventolin Hfa 2 puff INHALATION RT-QID PRN 01/29/20 01/29/20 History Inhaler] Amiodarone [Cordarone] 200 mg PO DAILY 01/29/20 01/29/20 History Apixaban [Eliquis] 5 mg PO BID 01/29/20 01/29/20 History Bisoprolol Fumarate [Zebeta] 10 mg PO DAILY 01/29/20 01/29/20 History Cephalexin [Keflex] 500 mg PO QID 01/29/20 01/29/20 History Magnesium Oxide [Mag-Ox] 400 mg PO BID #0 tab 01/29/20 Rx Pantoprazole Sodium 40 mg PO AC-BRKFST 01/29/20 01/29/20 History Allergies Allergy/AdvReac Type Severity Reaction Status Date / Time mold Allergy Unknown Dyspnea, Verified 01/29/20 09:45 Rash, Swelling Penicillins Allergy Unknown Verified 01/29/20 09:45 Childhood Physical Exam Vitals: Vital Signs Temp Pulse Resp BP Pulse Ox 02/04/20 16:00 98.6 F 64 22 101/49 96 02/04/20 15:30 67 25 H 96/55 98 02/04/20 15:00 58 L 18 86/44 97 02/04/20 14:30 59 L 16 85/48 95 02/04/20 14:00 58 L 16 94/45 95 02/04/20 13:30 61 19 94/48 96 02/04/20 13:00 60 24 105/63 93 L 02/04/20 12:30 67 21 95/49 94 L 02/04/20 12:00 97.6 F 60 16 90/47 92 L 02/04/20 11:30 63 18 91/43 93 L 02/04/20 11:00 67 25 H 98/45 95 02/04/20 10:30 64 17 102/49 94 L 02/04/20 10:00 62 22 102/45 96 02/04/20 09:30 63 8 L 104/53 93 L 02/04/20 09:00 97.7 F 57 L 22 113/66 98 02/04/20 08:30 57 L 24 117/61 97 02/04/20 08:00 66 24 118/51 93 L 02/04/20 07:00 56 L 16 113/60 99 02/04/20 06:30 52 L 18 108/47 98 02/04/20 06:00 57 L 20 114/58 96 02/04/20 05:30 56 L 20 117/56 95 02/04/20 05:00 56 L 25 H 98/60 97 02/04/20 04:30 57 L 21 108/64 96 02/04/20 04:00 98.2 F 51 L 18 104/55 100 02/04/20 03:30 54 L 15 102/50 99 02/04/20 03:00 54 L 12 101/52 99 02/04/20 02:30 55 L 15 95/49 98 02/04/20 02:15 98 F 58 L 14 95/49 99 02/04/20 02:00 54 L 13 97/44 99 02/04/20 01:30 57 L 13 92/49 99 02/04/20 01:00 57 L 18 105/57 99 02/04/20 00:30 62 18 99/51 98 02/04/20 00:00 98 F 58 L 14 92/49 98 02/03/20 23:30 58 L 11 L 98 02/03/20 23:08 57 L 12 92/49 98 02/03/20 23:00 57 L 14 91/49 98 02/03/20 22:38 97.9 F 56 L 17 91/49 99 02/03/20 22:30 57 L 16 88/44 99 02/03/20 22:29 98 F 57 L 18 88/77 99 02/03/20 22:28 98 F 58 L 18 88/44 99 02/03/20 22:00 57 L 11 L 92/55 98 02/03/20 21:30 56 L 11 L 92/55 98 02/03/20 21:00 56 L 13 85/48 99 02/03/20 20:30 60 15 85/48 99 02/03/20 20:00 97.7 F 58 L 10 L 96/61 98 02/03/20 19:30 59 L 9 L 96/61 98 02/03/20 19:00 61 12 96/61 98 02/03/20 18:45 61 10 L 98 02/03/20 18:30 62 14 94/64 99 02/03/20 18:15 62 10 L 80/58 98 02/03/20 18:00 64 10 L 80/58 99 02/03/20 17:45 62 10 L 90/58 99 02/03/20 17:30 61 10 L 89/54 99 02/03/20 17:15 66 19 92/60 99 Intake and Output 02/04/20 02/04/20 02/04/20 06:59 14:59 22:59 Intake Total 1334 2574 Output Total 390 324 Balance 944 2250 Intake: IV 1024 1074 0.9 NS Pressure Bag 24 24 ACETAMINOPHEN IV (For NPO 100 ) 1,000 mg In Empty Bag 1 bag @ 400 mls/hr IVPB Q6HR [facility] Rx#:[id number] Albumin Human 5% 250 ml 250 In Empty Bag 1 bag @ 250 mls/hr IVPB ONCE [facility]A Rx#: [id number] Meropenem 1 gm In Sodium 100 Chloride 0.9% 100 ml @ 200 mls/hr IVPB Q8H [facility] Rx#:[id number] Sodium Chloride 0.9% 1, 800 800 000 ml @ 100 mls/hr IV . Q10H [facility] Rx#:[id number] Oral 1500 Blood Product 310 Rc As-1 Unit 310 [id number] Output: Chest Tube Drainage 260 189 Chest Tube Left Lateral 230 135 Chest Chest Tube Left Posterior 30 54 Chest Urine 130 135 Other: Voiding Method Indwelling Catheter Indwelling Catheter Weight 67.2 kg ABP, PAP, CO, CI - Last 8 Hours Arterial Blood Pressure 97/35 Arterial Blood Pressure 108/39 Arterial Blood Pressure 106/33 Results CBC & Chem 7: 02/04/20 04:30 02/04/20 04:30 Labs: Abnormal Lab Results - Last 24 Hours (Table) 01/31/20 02/03/20 02/03/20 Range/Units 12:39 17:40 17:40 WBC 18.0 H (3.8-10.6) k/uL RBC 3.07 L (3.80-5.40) m/uL Hgb 7.9 L (11.4-16.0) gm/dL Hct 25.5 L (34.0-46.0) % MCHC 30.9 L (31.0-37.0) g/dL RDW 16.3 H (11.5-15.5) % Plt Count 683 H (150-450) k/uL Neutrophils # 16.1 H (1.3-7.7) k/uL Lymphocytes # 0.9 L (1.0-4.8) k/uL Sodium (137-145) mmol/L Creatinine (0.52-1.04) mg/dL Glucose (74-99) mg/dL POC Glucose (mg/dL) (75-99) mg/dL Calcium (8.4-10.2) mg/dL Magnesium (1.6-2.3) mg/dL Vancomycin Trough 31.1 H* ug/mL Crossmatch See Detail 02/03/20 02/04/20 02/04/20 Range/Units 17:40 04:30 04:30 WBC 13.0 H (3.8-10.6) k/uL RBC 2.97 L (3.80-5.40) m/uL Hgb 7.9 L (11.4-16.0) gm/dL Hct 25.0 L (34.0-46.0) % MCHC (31.0-37.0) g/dL RDW 16.3 H (11.5-15.5) % Plt Count 515 H (150-450) k/uL Neutrophils # 10.8 H (1.3-7.7) k/uL Lymphocytes # (1.0-4.8) k/uL Sodium 136 L 136 L (137-145) mmol/L Creatinine 1.36 H (0.52-1.04) mg/dL Glucose 155 H 119 H (74-99) mg/dL POC Glucose (mg/dL) (75-99) mg/dL Calcium 7.3 L 7.4 L (8.4-10.2) mg/dL Magnesium (1.6-2.3) mg/dL Vancomycin Trough ug/mL Crossmatch 02/04/20 02/04/20 02/04/20 Range/Units 04:30 07:07 12:29 WBC (3.8-10.6) k/uL RBC (3.80-5.40) m/uL Hgb (11.4-16.0) gm/dL Hct (34.0-46.0) % MCHC (31.0-37.0) g/dL RDW (11.5-15.5) % Plt Count (150-450) k/uL Neutrophils # (1.3-7.7) k/uL Lymphocytes # (1.0-4.8) k/uL Sodium (137-145) mmol/L Creatinine (0.52-1.04) mg/dL Glucose (74-99) mg/dL POC Glucose (mg/dL) 141 H 275 H (75-99) mg/dL Calcium (8.4-10.2) mg/dL Magnesium 1.5 L (1.6-2.3) mg/dL Vancomycin Trough ug/mL Crossmatch 02/04/20 Range/Units 16:32 WBC (3.8-10.6) k/uL RBC (3.80-5.40) m/uL Hgb (11.4-16.0) gm/dL Hct (34.0-46.0) % MCHC (31.0-37.0) g/dL RDW (11.5-15.5) % Plt Count (150-450) k/uL Neutrophils # (1.3-7.7) k/uL Lymphocytes # (1.0-4.8) k/uL Sodium (137-145) mmol/L Creatinine (0.52-1.04) mg/dL Glucose (74-99) mg/dL POC Glucose (mg/dL) 178 H (75-99) mg/dL Calcium (8.4-10.2) mg/dL Magnesium (1.6-2.3) mg/dL Vancomycin Trough ug/mL Crossmatch Microbiology - Last 24 Hours (Table) 01/29/20 09:00 Gram Stain - Final Chest Wound Culture - Preliminary Actinomyces odontolyticus 02/03/20 15:46 Gram Stain - Preliminary Other - Other Wound Culture - Preliminary 02/03/20 15:46 Anaerobic Culture - Preliminary Other - Other Assessment and Plan (1) Empyema of left pleural space Current Visit: Yes Status: Acute Code(s): J86.9 - PYOTHORAX WITHOUT FISTULA SNOMED Code(s): 20760280
[2020-02-04] MEDS: ACETAMINOPHEN TAB 500 MG TAB PO PRN ×2 (18:18→23:26)
[2020-02-04 20:27] LABS: Glucose,Whole Blood 288 mg/dL (75-99)
[2020-02-04] MEDS: SENNOSIDES-DOCUSATE SODIUM 1 EACH TAB PO SCH (20:45)
[2020-02-05 04:43] LABS: Anisocytosis Slight; Basophils % (A) 0 %; Eosinophils % (A) 0 %; HCT 22.5 % (34.0-46.0); Hypochromasia Marked; Lymphocytes # (A) 0.8 k/uL (1.0-4.8); Lymphocytes % (A) 8 %; MCHC 30.9 g/dL (31.0-37.0); MCV 84.3 fL (80.0-100.0); Mean Platelet Volume 7.4; Monocytes # (A) 0.5 k/uL (0-1.0); Monocytes % (A) 5 %; Neutrophils # (A) 8.8 k/uL (1.3-7.7); Neutrophils % (A) 84 %; Platelet Count 516 k/uL (150-450); Poikilocytosis Moderate; RBC 2.67 m/uL (3.80-5.40); RDW 16.7 % (11.5-15.5); WBC 10.6 k/uL (3.8-10.6)
[2020-02-05 04:48] LABS: Calcium 7.4 mg/dL (8.4-10.2); Magnesium 2.2 mg/dL (1.6-2.3); Potassium 3.8 mmol/L (3.5-5.1)
[2020-02-05 04:52] LABS: Vancomycin,Random 17.1 ug/mL
[2020-02-05] MEDS: KETOROLAC 30 MG/ML 1 ML VIAL IVP SCH ×4 (05:44→23:40)
[2020-02-05] MEDS: ACETAMINOPHEN TAB 500 MG TAB PO PRN (05:45)
[2020-02-05] MEDS ORDERED: POTASSIUM CHLORIDE ER 20 MEQ TAB.ER PO SCH (06:00)
[2020-02-05 06:44] LABS: Glucose,Whole Blood 197 mg/dL (75-99)
[2020-02-05] MEDS: INSULIN ASPART (NovoLOG) 100 UNIT/ML VIAL SQ SCH ×4 (06:54→21:23)
[2020-02-05] MEDS: PANTOPRAZOLE 40 MG TABLET PO SCH (06:54)
[2020-02-05] MEDS: metFORMIN 500 MG TAB PO SCH ×2 (06:54→16:57)
--- NOTE | 2020-02-05 07:15 | XR ---
EXAMINATION TYPE: XR chest 1V portable DATE OF EXAM: 02/05/2020 Comparison: 02/04/2020 Clinical History: 55-year-old female Postoperative left thoracotomy Findings: 3 left-sided chest tubes are present, 2 directed to the apex and one curving downward with tip at the base. Some subcutaneous emphysema is present along the left hemithorax. Some increasing patchy opaci ty in the periphery of the right mid and lower lung. Otherwise, there remains complete white out of t he left hemithorax obscuring the heart margin. Impression: 1. 3 left-sided chest tubes with continued complete white out of the left hemithorax. 2. New patchy opacity in the periphery of the right mid and lower lung. Developing infiltrates here n ot excluded. Clinically correlate.
[2020-02-05] MEDS: MAGNESIUM OXIDE 400 MG TAB PO SCH ×2 (09:14→21:22)
[2020-02-05] MEDS: metroNIDAZOLE 500 MG TAB PO SCH ×3 (09:14→21:22)
[2020-02-05] MEDS: DULoxetine HCL 60 MG CAPSULE.DR PO SCH (09:14)
[2020-02-05] MEDS: AMIODARONE 200 MG TAB PO SCH (09:14)
[2020-02-05] MEDS: HEPARIN SODIUM,PORCINE 5,000 UNIT/ML 1 ML VIAL SQ SCH ×3 (09:14→23:39)
[2020-02-05] MEDS: traMADol 50 MG TAB PO SCH ×3 (09:42→21:22)
[2020-02-05 12:28] LABS: Glucose,Whole Blood 139 mg/dL (75-99)
[2020-02-05] MEDS: hydrALAZINE HCL 50 MG TAB PO SCH ×3 (12:50→21:21)
--- NOTE | 2020-02-05 13:44 | P.PN ---
Subjective Progress Note Date: 02/05/20 Principal diagnosis: This is a 55-year-old female patient who follows with Dr. Leroy on an outpatient basis. She has a past medical history of poorly differentiated squamous cell carcinoma, status post left upper lobectomy on 12/31/2019, hypertension, hyperlipidemia, chronic tobacco abuse, type 2 diabetes mellitus, cervical cancer status post hysterectomy, anxiety and bipolar disorder. On 01/28/2020 she had a follow-up visit with Dr. Teddy Wilkins for her pathology results of her recent left upper lobectomy. Upon exam of her surgical incisions there was a fluctuant area which was painful to touch on her left chest. Subsequently she was started on oral Keflex. Yesterday morning she developed some drainage from that incision site with the fluctuant area, leaking foul smelling yellowish fluid. Her initial lab results showed a WBC count 12.0, Hgb 8.3, neutrophils 59%, positive band neutrophil percent 24 and neutrophil numbers 9.0. A chest x-ray was completed which demonstrated a normal and the left hydropneumothorax, with no significant interval changes. She was admitted to observation to determine further treatment plans and surgical incision with consultation placed to Dr. Teddy Wilkins. POD #2 left thoracotomey. total lung decortication, pectoralis major pedicle flap transposition into the left pleural space, cryoablation of the intercostal nerves. Postoperative acute blood loss anemia, an expected outcome of surgery. Postoperative hypotension, an expected outcome due to hypovolemia. On 02/04/2020 the patient was seen in follow-up at her bedside in the intensive care unit. She is sitting up to the bedside chair, she is alert, oriented 3. She is in no acute distress. Denies any complaints of shortness of breath and is complaining of some surgical type pain to her left chest tube insertion sites. She remains hemodynamically stable and is currently on no inotropic or pressor support. She did receive 2 250 mL 5% albumin and 1 unit of PRBCs last night for a hemoglobin of 7.9 and for some hypotension. Currently her blood pressure is 113/38 and her heart rate is sinus bradycardia 57 BPM. She remains with 3 left pleural chest tubes connected to low continuous wall suction -20 cm H2O. No air leak is present. Draining thin serosanguineous drainage. The anterior chest tubes drained 500 mL output since surgery and her posterior chest tube drained 130 mL output since surgery. She is achieving 1000 mL on her incentive spirometry with encouragement. Oxygen saturations are 98% on room air. Laboratory results morning show a WBC count 13.0, hemoglobin 7.9, platelets 515, BUN 14, creatinine 1.36 and magnesium 1.5. A repeat chest x-ray was completed this morning which demonstrated left-sided surgical changes with chest tubes and complete opacified left hemithorax without mediastinal shift. It also demonstrated improving overlying subcutaneous emphysema. She does have a Nolasco catheter in place for accurate I's and O's. On 02/05/2020 the patient was seen in follow-up at her bedside in the intensive care unit. She is currently laying in bed comfortably, she is awake, alert and oriented 3. She is in no acute distress and remained hemodynamically stable. Her hypotension is resolved and currently her blood pressure is 127/81 mmHg and is on no inotropic or pressor support. She denies any complaints of shortness of breath and reports her pain is well controlled with the current when necessary orders. Oxygen saturations are 98% on room air and she is achieving 1000 mL on her incentive spirometry. Chest x-ray was completed this morning which shows 3 left-sided chest tubes with continued complete whiteout of the left hemithorax and the patchy O pasty in the periphery of the right mid lower lung. Laboratory results today show WBC 10.6, hemoglobin 7.0, platelets 516, BUN 19, creatinine 1.27 and magnesium 2.2. Her wound culture from her left chest completed on 01/29/2020 showed Actinomyces odontolyticus, infectious disease is following and she is currently on Rocephin and Flagyl for antibiotic coverage. Wound care was completed to her superficial left chest wound this morning and was packed with iodoform gauze. She remains with 3 left pleural chest tubes in place to low continuous wall suction -20 cm H2O. Small intermittent airleak present to her posterior chest tube. The chest tubes are d raining thin serosanguineous drainage with 80 mL out of her anterior chest tubes in the last 8 hours and 280 mL output in the last 24 hours. 140 mL output out of her posterior chest tube in the last 8 hours and 200 mL output in the last 24 hours. Right radial arterial line remains in place and functioning. Objective - Vital Signs Vital signs: Vital Signs Temp 98.3 F 02/05/20 08:00 Pulse 70 02/05/20 12:00 Resp 24 02/05/20 12:00 BP 136/67 02/05/20 12:00 Pulse Ox 97 02/05/20 11:00 Intake & Output 02/04/20 02/05/20 02/05/20 18:59 06:59 18:59 Intake Total 3986 1236 195 Output Total 419 478 150 Balance 3567 758 45 Weight 73 kg 73 kg Intake: IV 1486 1236 195 0.9 NS Pressure Bag 36 36 15 Albumin Human 5% 250 ml 250 In Empty Bag 1 bag @ 250 mls/hr IVPB ONCE STA Rx#: [id number] Sodium Chloride 0.9% 1, 1200 1200 180 000 ml @ 100 mls/hr IV . Q10H [facility] Rx#:[id number] Oral 2500 Output: Chest Tube Drainage 189 150 90 Chest Tube Left Lateral 135 40 40 Chest Chest Tube Left Posterior 54 110 50 Chest Urine 230 328 60 Other: Voiding Method Indwelling Catheter Indwelling Catheter Indwelling Catheter ABP, PAP, CO, CI - Last Documented Arterial Blood Pressure 170/95 - Exam This is a 55-year-old pleasant female patient who is resting comfortably in bed. She is in no acute distress. Oxygen saturations are 98 percent on room air. She is hemodynamically stable. - Constitutional General appearance: Present: average body habitus, cooperative, no acute distress - EENT Eyes: Present: PERRLA, normal appearance. Absent: scleral icterus ENT: Present: hearing grossly normal, normal oropharynx. Absent: thrush - Neck Details: Neck is supple, no JVD. Neck: Absent: lymphadenopathy, stridor - Respiratory Details: Lungs sounds essentially clear to her bilateral upper lobes, diminished bilateral bases left greater than right. No wheezes, rhonchi or crackles. Respirations are symmetrical and nonlabored. Oxygen saturation is 98% on room air. Achieving 1000 mL on her incentive spirometry. Left pleural chest tubes remain in place to low continuous wall suction -20 cm H2O. intermittent air leak is present to her posterior chest tube. Draining thin serosanguineous drainage. - Cardiovascular Details: Regular rhythm and rate. S1 and S2 present, negative for S3, gallop or murmur. Knee-high JOHAN hose and sequential compression devices in place to bilateral lower extremities. No edema. - Gastrointestinal Gastrointestinal Comment(s): Abdomen is soft, nontender and nondistended. Active bowel sounds present in all 4 abdominal quadrants. No guarding or rigidity. No organomegaly. - Genitourinary Genitourinary Comment(s): Nolasco catheter for accurate I&O. Draining clear yellow urine. 280 mL output in the last 8 hours. - Integumentary Integumentary Comment(s): Skin is warm and dry. No clubbing or cyanosis present. No rash or abnormal pigmentation is present. Dressings are clean, dry and intact to her left chest incision sites and to her left chest superficial wound. - Neurologic Neurologic: Present: CNII-XII intact - Musculoskeletal Musculoskeletal: Present: gait normal, generalized weakness, strength equal bilaterally - Psychiatric Psychiatric: Present: A&O x's 3, appropriate affect, intact judgment & insight (What) - Allied health notes Allied health notes reviewed: nursing - Labs CBC & Chem 7: 02/05/20 04:30 02/05/20 04:30 Labs: Abnormal Lab Results - Last 24 Hours (Table) 02/04/20 02/04/20 02/05/20 Range/Units 16:32 20:26 04:30 RBC 2.67 L (3.80-5.40) m/uL Hgb 7.0 L (11.4-16.0) gm/dL Hct 22.5 L (34.0-46.0) % MCHC 30.9 L (31.0-37.0) g/dL RDW 16.7 H (11.5-15.5) % Plt Count 516 H (150-450) k/uL Neutrophils # 8.8 H (1.3-7.7) k/uL Lymphocytes # 0.8 L (1.0-4.8) k/uL Sodium (137-145) mmol/L BUN (7-17) mg/dL Creatinine (0.52-1.04) mg/dL Glucose (74-99) mg/dL POC Glucose (mg/dL) 178 H 288 H (75-99) mg/dL Calcium (8.4-10.2) mg/dL 02/05/20 02/05/20 02/05/20 Range/Units 04:30 06:43 12:26 RBC (3.80-5.40) m/uL Hgb (11.4-16.0) gm/dL Hct (34.0-46.0) % MCHC (31.0-37.0) g/dL RDW (11.5-15.5) % Plt Count (150-450) k/uL Neutrophils # (1.3-7.7) k/uL Lymphocytes # (1.0-4.8) k/uL Sodium 132 L (137-145) mmol/L BUN 19 H (7-17) mg/dL Creatinine 1.27 H (0.52-1.04) mg/dL Glucose 200 H (74-99) mg/dL POC Glucose (mg/dL) 197 H 139 H (75-99) mg/dL Calcium 7.4 L (8.4-10.2) mg/dL Microbiology - Last 24 Hours (Table) 01/29/20 09:00 Gram Stain - Final Chest Wound Culture - Final Actinomyces odontolyticus 02/03/20 15:46 Gram Stain - Preliminary Other - Other Wound Culture - Preliminary - Imaging and Cardiology Chest x-ray: report reviewed, image reviewed Assessment and Plan Assessment: 1. Empyema left chest status post left upper lobectomy, status post left thoracotomy, total lung decortication, pectoralis major pedicle flap transposition into the left pleural space, cryoablation of intercostal nerves. 2. Superficial wound, with culture from 01/29/2020 positive for Actinomyces odontolyticus. Currently on Rocephin and Flagyl managed by infectious disease 3. History of poorly differentiated squamous cell carcinoma, status post left upper lobectomy on 12/31/2019 4. History of hypertension 5. History of hyperlipidemia 6. Previous tobacco dependence 7. Type 2 diabetes 8. History of cervical cancer status post hysterectomy 9. History of anxiety/bipolar disorder 10. Postoperative acute blood loss anemia, an expected outcome 11. Postoperative hypotension, an expected outcome, resolved Plan: 1. Keep left pleural chest tubes to low continuous wall suction -20 cm H2O. Continue to monitor accurate I&O. 2. Encourage use of her incentive spirometry 10 times an hour while awake. 3. Continue to encourage smoking cessation. 4. Continue to hold Eliquis. 5. Discontinue Nolasco catheter and arterial line. 6. Gram stain obtained in the operating room yesterday shows no organisms seen. Culture results remain pending. Initial culture from her left chest wound from 01/29/2020 showed Actinomyces odontolyticus continue Rocephin and Flagyl managed by infectious disease. Dr. Champion's note reviewed and the patient will likely need a PICC line for outpatient antibiotic treatments. 7. GI and DVT prophylaxis. 8. Out of bed for all meals. Increase activity as tolerated. Physical therapy consulted and following. 9. Transferred to [facility] for cardiac stepdown unit with remote telemetry. 10. Dressing change to her left chest today, we will change on a daily basis. Using iodoform gauze. We will likely transition to wound VAC on Saturday, 2019. 11. Continue to monitor daily labs and chest x-rays. Replace electrolytes per protocol. 12. More recommendations to follow based on patient's clinical course. Time with Patient: Greater than 30
--- NOTE | 2020-02-05 14:00 | P.PN ---
Subjective Progress Note Date: 02/05/20 This is a 55-year-old female patient who follows with Dr. Leroy on an outpatient basis. She has a past medical history of poorly differentiated squamous cell carcinoma, status post left upper lobectomy on 12/31/2019, hypertension, hyperlipidemia, chronic tobacco abuse, type 2 diabetes mellitus, cervical cancer status post hysterectomy, anxiety and bipolar disorder. On 01/28/2020 she had a follow-up visit with Dr. Teddy Wilkins for her pathology results of her recent left upper lobectomy. Upon exam of her surgical incisions there was a fluctuant area which was painful to touch on her left chest. Subsequently she was started on oral Keflex. Yesterday morning she developed some drainage from that incision site with the fluctuant area, leaking foul smelling yellowish fluid. Her initial lab results showed a WBC count 12.0, Hgb 8.3, neutrophils 59%, positive band neutrophil percent 24 and neutrophil numbers 9.0. A chest x-ray was completed which demonstrated a normal and the left hydropneumothorax, with no significant interval changes. She was admitted to observation to determine further treatment plans and surgical incision with consultation placed to Dr. Teddy Wilkins. On 01/30/2020 the patient was seen on the fourth floor medical surgical unit on follow-up. She is resting comfortably in bed, is in no acute distress and denies any complaints of shortness of breath. The patient does report she is having some intermittent pain to her left chest where her incision is draining. She does have a dressing which is clean and intact to her left chest which continues to drain thick foul-smelling yellowish colored drainage. Her Gram stain yesterday shows many gram-positive bacilli and she remains on Keflex for antibiotic treatment. She is hemodynamically stable, remains afebrile, although this morning her blood pressure is 176/71. Oxygen saturations are 96% on room air. Culture results from her surgical site to her left chest remains pending. The patient is seen today 01/31/2020 in follow-up on the regular medical floor. She is a resting comfortably in bed. Awake and alert in no acute distress. She denies any worsening shortness of breath. She has a dry cough. She states when she coughs she does feel like air escapes from her left chest wound. The wound continues to drain purulent drainage. There is also noted blood clots. She is maintaining O2 saturation in the 90s on room air. She's currently afebrile. Wound cultures revealing gram-positive bacilli. White count 5.8. Hemoglobin 6.9. Platelet count 1044. Sodium 133. Potassium 4.2. Creatinine 0.41. She's been initiated on vancomycin and meropenem. Anticoagulated with Eliquis. Currently in sinus rhythm. On today's evaluation of 02/03/2020, the patient is laying comfortably in bed. No signs of any significant respiratory distress pH is still draining purulent stuff from the left chest area and the dressing is stuffed and soaked. The culture is positive for gram possible solicitous and the patient remains on vancomycin. She is also on IV Merrem. She is hemodynamically stable. She is off the Eliquis in preparation for surgical thoracoscopic evaluation for empyema. The white cell count is at 4.6. Hemoglobin stable at 8.2. She is in a sinus rhythm. She did have a bout of proximal atrial fibrillation following her lung surgery and she's been in sinus since. No altered mentation. No other significant events overnight. On 02/04/2020 on seeing this patient in follow-up in the intensive care unit. Noted the patient was taken for thoracotomy yesterday regarding the empyema. The surgery was done successfully. Estimated blood loss was 300 mL. The patient underwent a left thoracotomy and total lung decortication in addition to a pectoralis major pedicle flap transposition into the left pleural space. The patient underwent also cryoablation of the intercostal nerves. A total of 3 chest tubes were placed into the left hemithorax and the patient was following that extubated and sent to the intensive care unit. Overnight she did extremely well. She remained hemodynamically stable. This morning the patient is on room air oxygen and she is sitting up on a chair. She was provided incentive spirometer. Her pulse ox is 96%. She is to the off anticoagulation. 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 For now the current antibiotic coverage is a combination of Merrem and vancomycin. The patient postop required IV fluid resuscitation. She received a total of 2 of 250 mL of 5% albumin and unit of packed RBC which helped her overall hemodynamics. There chest tubes on the left have drained 500 mL in the anterior tubes and 130s disease in the posterior 2. The white cell count at 13.9. Hemoglobin is at 7.9. Creatinine is at 1.36. The chest x-ray shows that the tubes are in place and the patient has significant opacification of left hemithorax and also there is evidence of some improving subcu his emphysema. The patient has a Nolasco catheter in place. The patient is awake and alert and she denies having any specific complaints for now. On 02/05/2020, the patient is being seen in follow-up in the intensive care unit. The patient is postop day #2. She is doing well. She is able to stop on a chair. No fever or chills. As mentioned earlier the patient was found to be a Actinomyces infection in the left pleural space and the patient is currently on IV Rocephin and Flagyl. The patient is ALLERGIC to penicillin this medication was not provided to her. She developed an extensive rash to that. She also is receiving wound care and the patient has a superficial left chest wound was packed with iodoform gauze by the surgical team this morning. The patient also has a total of 3 chest tubes in her left pleural space. The chest tubes are attached to continuous wall suction and there is some intermittent leak and the posterior chest tubes. Output from the chest tube has been serosanguineous in order of 80 mL in the anterior chest tube and 280 mL over the past 24 hours. Output from the posterior chest tubes has been 200 mL over the past 24 hours. The patient is afebrile. The patient using incentive spirometer. Denies having any chest pain. No altered mentation. No other significant events otherwise over the past 24 hours. Her cardiac rhythm remains sinus. Objective - Vital Signs Vital signs: Vital Signs Temp 98.3 F 02/05/20 08:00 Pulse 70 02/05/20 12:00 Resp 24 02/05/20 12:00 BP 136/67 02/05/20 12:00 Pulse Ox 97 02/05/20 11:00 Intake & Output 02/04/20 02/05/20 02/05/20 18:59 06:59 18:59 Intake Total 3986 1236 195 Output Total 419 478 150 Balance 3567 758 45 Weight 73 kg 73 kg Intake: IV 1486 1236 195 0.9 NS Pressure Bag 36 36 15 Albumin Human 5% 250 ml 250 In Empty Bag 1 bag @ 250 mls/hr IVPB ONCE STA Rx#: [id number] Sodium Chloride 0.9% 1, 1200 1200 180 000 ml @ 100 mls/hr IV . Q10H [facility] Rx#:[id number] Oral 2500 Output: Chest Tube Drainage 189 150 90 Chest Tube Left Lateral 135 40 40 Chest Chest Tube Left Posterior 54 110 50 Chest Urine 230 328 60 Other: Voiding Method Indwelling Catheter Indwelling Catheter Indwelling Catheter ABP, PAP, CO, CI - Last Documented Arterial Blood Pressure 170/95 - Exam This is a 55-year-old pleasant female patient who is resting comfortably in bed. She is in no acute distress. Oxygen saturations are 98 percent on room air. She is hemodynamically stable. - Constitutional General appearance: Present: average body habitus, cooperative, no acute distress - EENT Eyes: Present: PERRLA, normal appearance. Absent: scleral icterus ENT: Present: hearing grossly normal, normal oropharynx. Absent: thrush - Neck Details: Neck is supple, no JVD. Neck: Absent: lymphadenopathy, stridor - Respiratory Details: Lungs sounds essentially clear to her bilateral upper lobes, diminished bilateral bases left greater than right. No wheezes, rhonchi or crackles. Respirations are symmetrical and nonlabored. Oxygen saturation is 98% on room air. Achieving 1000 mL on her incentive spirometry. Left pleural chest tubes remain in place to low continuous wall suction -20 cm H2O. intermittent air leak is present to her posterior chest tube. Draining thin serosanguineous drainage. - Cardiovascular Details: Regular rhythm and rate. S1 and S2 present, negative for S3, gallop or murmur. Knee-high JOHAN hose and sequential compression devices in place to bilateral lower extremities. No edema. - Gastrointestinal Gastrointestinal Comment(s): Abdomen is soft, nontender and nondistended. Active bowel sounds present in all 4 abdominal quadrants. No guarding or rigidity. No organomegaly. - Genitourinary Genitourinary Comment(s): Nolasco catheter for accurate I&O. Draining clear yellow urine. 280 mL output in the last 8 hours. - Integumentary Integumentary Comment(s): Skin is warm and dry. No clubbing or cyanosis present. No rash or abnormal pigmentation is present. Dressings are clean, dry and intact to her left chest incision sites and to her left chest superficial wound. - Neurologic Neurologic: Present: CNII-XII intact - Musculoskeletal Musculoskeletal: Present: gait normal, generalized weakness, strength equal bilaterally - Labs CBC & Chem 7: 02/05/20 04:30 02/05/20 04:30 Labs: Abnormal Lab Results - Last 24 Hours (Table) 02/04/20 02/04/20 02/05/20 Range/Units 16:32 20:26 04:30 RBC 2.67 L (3.80-5.40) m/uL Hgb 7.0 L (11.4-16.0) gm/dL Hct 22.5 L (34.0-46.0) % MCHC 30.9 L (31.0-37.0) g/dL RDW 16.7 H (11.5-15.5) % Plt Count 516 H (150-450) k/uL Neutrophils # 8.8 H (1.3-7.7) k/uL Lymphocytes # 0.8 L (1.0-4.8) k/uL Sodium (137-145) mmol/L BUN (7-17) mg/dL Creatinine (0.52-1.04) mg/dL Glucose (74-99) mg/dL POC Glucose (mg/dL) 178 H 288 H (75-99) mg/dL Calcium (8.4-10.2) mg/dL 02/05/20 02/05/20 02/05/20 Range/Units 04:30 06:43 12:26 RBC (3.80-5.40) m/uL Hgb (11.4-16.0) gm/dL Hct (34.0-46.0) % MCHC (31.0-37.0) g/dL RDW (11.5-15.5) % Plt Count (150-450) k/uL Neutrophils # (1.3-7.7) k/uL Lymphocytes # (1.0-4.8) k/uL Sodium 132 L (137-145) mmol/L BUN 19 H (7-17) mg/dL Creatinine 1.27 H (0.52-1.04) mg/dL Glucose 200 H (74-99) mg/dL POC Glucose (mg/dL) 197 H 139 H (75-99) mg/dL Calcium 7.4 L (8.4-10.2) mg/dL Microbiology - Last 24 Hours (Table) 01/29/20 09:00 Gram Stain - Final Chest Wound Culture - Final Actinomyces odontolyticus 02/03/20 15:46 Gram Stain - Preliminary Other - Other Wound Culture - Preliminary Assessment and Plan Plan: 1 left lung empyema and the patient is post left upper lobectomy on 12/31/2019 , with cultures indicating actinomyces infection. The patient was taken to the operating room and the patient underwent a left thoracotomy, total left decortication, pectoralis major pedicle flap transposition into the left pleural space in addition to cryoablation of the intercostal nerves. She is postop day #2. The patient is currently in the intensive care unit on room air oxygen. Chest x-rays from this morning shows opacification of left lung with the chest tubes being in place. Antibiotics asto a combination of Rocephin and Flagyl as the patient was identified to have actinomyces infection in the lung and the patient is penicillin ALLERGIC and is unable to take penicillins for now. Chest tubes are still in place. Output has been noted. There is minimal amount of air leak. We'll keep the chest tube in place 524 hours. Chest x-ray from today was noted and there is significant opacification volume loss in the left lung. The patient is on room air oxygen. The patient using incentive spirometer. 2 Acute anemia possibly related to blood clot/pooling/hematoma the left chest, and hemoglobin down to 7.0. Note that the patient already received 2 units of packed RBC. 3 Recent left upper lobectomy on 12/31/2019 found to be poorly differentiated squamous cell carcinoma, the patient has T4 N0 M0 disease 4 Previous chronic tobacco dependence 5 Hypertension 6 Hyperlipidemia 7 Diabetes mellitus, type II 8 History of cervical cancer status post hysterectomy 9 History of anxiety/bipolar disorder Plan Provide the patient incentive spirometer Keep the chest of the test. Pleural VAC and suction at 20 cm of water Monitor output from the chest tubes No need for any anticoagulation for now Antibiotic coverage would include a combination of Rocephin and Flagyl per ID Monitor hemoglobin Monitor daily chest x-rays Monitor renal function Monitor blood sugars Monitor surgical wound Keep the chest tube in place for today We'll continue to follow make further recommendations based on overall progress. The patient moved out of the intensive care unit to a monitored in a medical surgical floor. Her condition is stable. Continue using incentive spirometer.
--- NOTE | 2020-02-05 16:16 | P.PN ---
Subjective Progress Note Date: 02/05/20 This is a 55-year-old female, nicotine dependent, 40 year smoking history, quit in October 2019, with recently diagnosed -poorly differentiated squamous cell CA left lung, status post left upper lobectomy on 12/31/2019, presented to the ER with complaints of increased foul-smelling draining from prior lobectomy incision sites. Patient had seen cardiothoracic surgeon Dr. Wilkins yesterday, started on oral Keflex. Afebrile, WBC12, vital signs stable. Hemoglobin 8.3, sodium 131, potassium 3.1, magnesium 1.5. Alkaline phosphatase mildly elevated 134. Chest x-ray reporting known left hydropneumothorax, trachea midline, right lung clear. EKG reporting normal sinus rhythm, lateral infarct, age undet ermined. Troponin negative 1. Denies chest pain, palpitations or shortness of breath. Denies lightheadedness, dizziness or focal deficits. 01/30/2020: The patient was not discharged last night as a potassium of return to normal. She does have a small leukocytosis which may be consistent with her recent surgeries and lung cancer, however a repeat is pending for this morning. I discussed the case currently with thoracic surgery and they felt that because of the white count, Keflex and discharged to be held. We discussed pulmonology consult which was done. That is in progress and they had ordered a CT chest showing an air-fluid level and dense consolidation remainder of the lung left lo be after left upper lobectomy. The margins suggested infection. Currently she's been placed on meropenem. Her wound continues to drain. Cultures are pending, but currently show no growth. He denies any significant chest pains, pressures, or shortness of breath this time. She denies any nausea or vomiting. She reports her appetite is little bit improved. She had not been eating well recently due to her cancer and treatment. Potassium this morning is 3.2. 01/31/2020: Her case was discussed with vascular surgery, they will plan a a large debridement of her chest wound in the next 48 hours. She remains on amiodarone and Elequis for anticoagulation due to atrial fibrillation. She continues on meropenem and vancomycin for her Lung empyema after robotically assisted left upper lobectomy for squamous cell carcinoma. He remains on bisoprolol for blood pressure control, but it remains somewhat elevated. Hemoglobin is dropped from 8.3 down to 6.4. A stat repeat is now 6.9. Her plat elets continue to be elevated, most likely reactive, now 1044. She remains hyponatremic at 133. She denies any significant chest pains, pressures, or shortness of breath other than with exertion. She denies any significant nausea or vomiting. Staff reports she is complaining some vaginal itching and irritation. Potassium is now up to 4.2 today. 02/01/2020 Wound cultures reporting gram-positive bacilli isolated. Maintained on vancomycin, Merrem. Continues having purulent drainage from lateral left chest incision site. Tested negative for coronavirus. Afebrile, WBC WNL. Hemoglobin 8.2. Telemetry sinus rhythm. Denies chest pain, palpitations. 02/02/2020 received Eliquis yesterday, surgery, rescheduled for tomorrow for 02/03/20. Hypertensive, hydralazine initiated yesterday. Drainage continues. Afebrile, WBC within normal limits. Maintaining O2 sats in the 90s on room air. Hemoglobin 10.1. 02/03/2020 NPO, Eliquis remains on hold. OR pending. Hypertensive. Hemoglobin 8.8. Continues maintaining O2 sats in the mid 90s on room air. Afebrile, WBC WNL. 02/04/2020 yesterday underwent left thoracotomey. total lung decortication, pectoralis major pedicle flap transposition into the left pleural space, cryoablation of the intercostal nerves, with placement of 3 left pleural chest tubes,tolerated procedure well. Left pleural chest tube insertion sites discomfort. Maintaining O2 sats in the 90s on room air. Incentive spirometer up to 1000. Maintained on vancomycin, Merrem Chest x-ray reporting surgical changes, chest tubes, complete opacified left hemothorax with mediastinal shift, improving subcutaneous emphysema. Eliquis remains on hold. Wound culture rep orting gram-positive bacilli. Telemetry sinus bradycardia. Hemoglobin 7.9, received 1 unit postop of packed RBCs in addition to IV fluid resuscitation, albumin. Borderline hypotension with systolic blood pressures in the low 90s, MAP 61. 02/05/2020 evaluated by infectious disease with antibiotics adjusted. Currently maintained on Rocephin and Flagyl. Renal function improving, creatinine down to 1.27. Hemoglobin down to 7,(EBL 300 of recent surgery) Maintaining O2 sats in the 90s on room air. Chest x-ray reporting 3 left-sided chest tubes, some subcutaneous emphysema along the left hemothorax, some increasing patchy opacity in the periphery of the right mid and lower lung, continued complete whiteout of the left hemithorax. Sodium 132. Yesterday hypotensive, requiring albumin, antihypertensives held. Currently systolic blood pressure in the 130s reported per staff without antihypertensives on board. Objective - Vital Signs Vital signs: Vital Signs Temp 98 F 02/05/20 04:00 Pulse 67 02/05/20 07:00 Resp 21 02/05/20 07:00 BP 155/73 02/05/20 07:00 Pulse Ox 96 02/05/20 07:00 Intake & Output 02/04/20 02/05/20 02/05/20 18:59 06:59 18:59 Intake Total 3986 1236 103 Output Total 419 478 120 Balance 3567 758 -17 Weight 73 kg 73 kg Intake: IV 1486 1236 103 0.9 NS Pressure Bag 36 36 3 Albumin Human 5% 250 ml 250 In Empty Bag 1 bag @ 250 mls/hr IVPB ONCE STA Rx#: [id number] Sodium Chloride 0.9% 1, 1200 1200 100 000 ml @ 100 mls/hr IV . Q10H [facility] Rx#:[id number] Oral 2500 Output: Chest Tube Drainage 189 150 90 Chest Tube Left Lateral 135 40 40 Chest Chest Tube Left Posterior 54 110 50 Chest Urine 230 328 30 Other: Voiding Method Indwelling Catheter Indwelling Catheter ABP, PAP, CO, CI - Last Documented Arterial Blood Pressure 170/95 - Exam GENERAL: Sitting up in chair, no acute distress NECK: No JVD. No thyroid enlargement. No LNs CARDIOVASCULAR: S1, S2 regular. No murmur RESPIRATION: Nonlabored. Breath sounds diminished. Occasional scattered fine crackles. Left pleural chest tubes 3 with serosanguineous drainage. ABDOMEN: Soft, nontender . No guarding. no masses palpable. Positive Bowel sounds. LEGS: No edema. no swelling. No clubbing, no cyanosis PSYCHIATRY: Alert and oriented X3, mood and affect normal. NERVOUS SYSTEM: Cranial N 2-12 grossly normal. Moves all 4 limbs. No focal deficits. Strength and sensation grossly intact.. Skin: Left lateral prior lobectomy incisional site dressing clean dry and intact. Microbiology 04/17/20 09:00 Chest Gram Stain - Final 01/29/20 09:00 Chest Wound Culture - Final Actinomyces odontolyticus 02/03/20 15:46 Other - Other Gram Stain - Preliminary 02/03/20 15:46 Other - Other Wound Culture - Preliminary 02/03/20 15:46 Other - Other Anaerobic Culture - Preliminary - Labs CBC & Chem 7: 02/05/20 04:30 02/05/20 04:30 Labs: Abnormal Lab Results - Last 24 Hours (Table) 02/04/20 02/04/20 02/04/20 Range/Units 12:29 16:32 20:26 RBC (3.80-5.40) m/uL Hgb (11.4-16.0) gm/dL Hct (34.0-46.0) % MCHC (31.0-37.0) g/dL RDW (11.5-15.5) % Plt Count (150-450) k/uL Neutrophils # (1.3-7.7) k/uL Lymphocytes # (1.0-4.8) k/uL Sodium (137-145) mmol/L BUN (7-17) mg/dL Creatinine (0.52-1.04) mg/dL Glucose (74-99) mg/dL POC Glucose (mg/dL) 275 H 178 H 288 H (75-99) mg/dL Calcium (8.4-10.2) mg/dL 02/05/20 02/05/20 02/05/20 Range/Units 04:30 04:30 06:43 RBC 2.67 L (3.80-5.40) m/uL Hgb 7.0 L (11.4-16.0) gm/dL Hct 22.5 L (34.0-46.0) % MCHC 30.9 L (31.0-37.0) g/dL RDW 16.7 H (11.5-15.5) % Plt Count 516 H (150-450) k/uL Neutrophils # 8.8 H (1.3-7.7) k/uL Lymphocytes # 0.8 L (1.0-4.8) k/uL Sodium 132 L (137-145) mmol/L BUN 19 H (7-17) mg/dL Creatinine 1.27 H (0.52-1.04) mg/dL Glucose 200 H (74-99) mg/dL POC Glucose (mg/dL) 197 H (75-99) mg/dL Calcium 7.4 L (8.4-10.2) mg/dL Microbiology - Last 24 Hours (Table) 01/29/20 09:00 Gram Stain - Final Chest Wound Culture - Final Actinomyces odontolyticus 02/03/20 15:46 Gram Stain - Preliminary Other - Other Wound Culture - Preliminary Assessment and Plan Assessment: (1) left Hydropneumothorax, empyema of the left lung ,status post left thoracotomy. total lung decortication, pectoralis major pedicle flap transposition into the left pleural space, cryoablation of the intercostal nerves.Cultures reporting actinomyces. Current Visit: Yes Status: Acute Priority: High Code(s): J94.8 - OTHER SPECIFIED PLEURAL CONDITIONS SNOMED Code(s): 67903825 (2) Cavitary lesion of lung Current Visit: No Status: Acute Priority: High Code(s): J98.4 - OTHER DISORDERS OF LUNG SNOMED Code(s): 419062401 (3) Hypokalemia, currently resolved Current Visit: Yes Status: Acute Priority: High Code(s): E87.6 - HYPOKALEMIA SNOMED Code(s)61787131 (4) Microcytic acute anemia secondary to left lung empyema, status post transfusion and packed RBCs Current Visit: Yes Status: Chronic Priority: Medium Code(s): D50.9 - IRON DEFICIENCY ANEMIA, UNSPECIFIED SNOMED Code(s): 115977690 (5)Poorly differentiated squamous cell CA, left upper lobe Current Visit: Yes Status: Acute Code(s): C34.90 - MALIGNANT NEOPLASM OF UNSP PART OF UNSP BRONCHUS OR LUNG SNOMED Code(s): 678661490 (6) S/P lobectomy of lung with draining from prior recent left upper lobectomy incisional site, cultures reporting actinomyces Current Visit: Yes Status: Chronic Priority: Low Code(s): Z90.2 - ACQUIRED ABSENCE OF LUNG [PART OF] SNOMED Code(s): 08833820777982473 (7) Essential (primary) hypertension Current Visit: No Status: Acute Code(s): I10 - ESSENTIAL (PRIMARY) HYPERTENSION SNOMED Code(s): 46090385 (8) Hyponatremia Current Visit: Yes Status: Acute Code(s): E87.1 - HYPO-OSMOLALITY AND HYPONATREMIA SNOMED Code(s): 12596341 (9)Major depressive disorder, recurrent, moderate Current Visit: No Status: Acute Code(s): F33.1 - MAJOR DEPRESSIVE DISORDER, RECURRENT, MODERATE SNOMED Code(s): 469397441 (10)Type 2 diabetes mellitus without complications Current Visit: No Status: Acute Code(s): E11.9 - TYPE 2 DIABETES MELLITUS WITHOUT COMPLICATIONS SNOMED Code(s): 004293195 (11) Fibromyalgia Current Visit: Yes Status: Acute Code(s): M79.7 - FIBROMYALGIA SNOMED Code(s): 296778881 (12) hypomagnesemia (13)Possible SIADH related to Lung CA (14) Paroxysmal atrial fibrillation Current Visit: Yes Status: Chronic Priority: Medium Code(s): I48.0 - PAROXYSMAL ATRIAL FIBRILLATION SNOMED Code(s): 351108960 (15) hypoproteinemia Plan: Continue on current medication regime ,monitoring and symptomatic treatment. Maintained on IV antibiotics of Rocephin and Flagyl as per infectious disease. Antihypertensives held yesterday, close monitoring of blood pressure, we will reintroduce antihypertensives accordingly. Pain management. Aggressive pulmonary toileting. Eliquis remains on hold. Potential transfer out of ICU to stepdown unit as per psychiatrist and cardiothoracic surgery. The impression and plan of care has been dictated as directed. : I performed a history and examination of this patient, discussed the same with the dictator. I agree with the dictator's note ,documented as a scribe. Any additional findings or plans will be noted.
[2020-02-05] MEDS: BISOPROLOL 5 MG TAB PO SCH (16:49)
[2020-02-05] MEDS: VALSARTAN 160 MG TAB PO SCH (16:49)
--- NOTE | 2020-02-05 17:09 | PN ---
PROGRESS NOTE DATE OF SERVICE: 02/05/2020 REASON FOR FOLLOWUP: Left-sided empyema. INTERVAL HISTORY: The patient is currently afebrile. The patient is breathing comfortably. Pain to the left side of the chest is currently controlled. The patient did have some cough; no sputum. Some nausea but no vomiting. No abdominal pain or diarrhea. PHYSICAL EXAMINATION: Blood pressure 138/74 with a pulse of 67, temperature 98.3. She is 97% on room air. General description is a middle-aged female in the bed in no distress. RESPIRATORY SYSTEM: Unlabored breathing with some coarse crackles at the base bilaterally. Decreased breath sounds in the left base. HEART: S1, S2. Regular rate and rhythm. ABDOMEN: Soft. No tenderness. LABS: Hemoglobin 7, white count 10.6, BUN of 19, creatinine 1.27. OR cultures are currently pending. Initial culture with Actinomyces. DIAGNOSTIC IMPRESSION AND PLAN: Patient with left-sided empyema, status post beside thoracotomy and chest tube placement. Previous culture positive for Actinomyces. OR cultures pending. Patient is currently covered with Rocephin and Flagyl in view of her PENICILLIN ALLERGY. Continue to monitor her clinical course closely. MMODL / IJN: [id number] /
[2020-02-05 17:10] LABS: Glucose,Whole Blood 131 mg/dL (75-99)
[2020-02-05] MEDS: SODIUM CHLORIDE 0.9% 1,000 ML IV SCH (17:35)
[2020-02-05 20:26] LABS: Glucose,Whole Blood 164 mg/dL (75-99)
[2020-02-05] MEDS: SENNOSIDES-DOCUSATE SODIUM 1 EACH TAB PO SCH (21:22)
[2020-02-06] MEDS ORDERED: amLODIPine 5 MG TAB PO SCH (04:17)
[2020-02-06] MEDS: hydrALAZINE HCL 50 MG TAB PO SCH ×5 (04:31→21:35)
[2020-02-06 05:01] LABS: Anisocytosis Slight; Basophils % (A) 0 %; Eosinophils # (A) 0.1 k/uL (0-0.7); Eosinophils % (A) 1 %; HCT 23.8 % (34.0-46.0); HGB 7.2 gm/dL (11.4-16.0); Hypochromasia Marked; Lymphocytes % (A) 8 %; MCH 26.5 pg (25.0-35.0); MCHC 30.2 g/dL (31.0-37.0); MCV 87.7 fL (80.0-100.0); Mean Platelet Volume 7.1; Monocytes # (A) 0.4 k/uL (0-1.0); Monocytes % (A) 3 %; Neutrophils # (A) 10.9 k/uL (1.3-7.7); Neutrophils % (A) 87 %; Platelet Count 613 k/uL (150-450); Poikilocytosis Moderate; RBC 2.71 m/uL (3.80-5.40); RDW 16.3 % (11.5-15.5); WBC 12.6 k/uL (3.8-10.6)
[2020-02-06 05:12] LABS: Albumin 2.3 g/dL (3.5-5.0); Calcium 8.1 mg/dL (8.4-10.2); Total Bilirubin 0.3 mg/dL (0.2-1.3); Total Protein 5.1 g/dL (6.3-8.2)
[2020-02-06] MEDS: KETOROLAC 30 MG/ML 1 ML VIAL IVP SCH ×3 (05:56→17:16)
[2020-02-06 06:47] LABS: Glucose,Whole Blood 136 mg/dL (75-99)
--- NOTE | 2020-02-06 06:54 | XR ---
EXAMINATION TYPE: XR chest 1V portable DATE OF EXAM: 02/06/2020 HISTORY: Postop left thoracotomy with decortication. REFERENCE: Previous study dated 02/05/2020. FINDINGS: 2 left pleural drains are in place. There is minimal subcutaneous emphysema on the left. Th is is improved from previous. There is complete opacification of the left hemithorax. There is worsening opacity in the right chest peripherally. Heart size is obscured. IMPRESSION: 1. CONTINUING COMPLETE OPACITY OF THE LEFT LUNG. 2. IMPROVING SUBCUTANEOUS EMPHYSEMA ON THE LEFT. 3. WORSENING PERIPHERAL AIRSPACE DISEASE ON THE RIGHT.
[2020-02-06] MEDS: PANTOPRAZOLE 40 MG TABLET PO SCH (07:00)
[2020-02-06] MEDS: metFORMIN 500 MG TAB PO SCH ×2 (07:00→17:16)
[2020-02-06] MEDS: INSULIN ASPART (NovoLOG) 100 UNIT/ML VIAL SQ SCH ×4 (07:00→21:34)
[2020-02-06] MEDS ORDERED: FUROSEMIDE 10 MG/ML 2 ML VIAL IV STA (07:20)
[2020-02-06] MEDS ORDERED: amLODIPine 5 MG TAB PO ONE (08:00)
[2020-02-06] MEDS: HEPARIN SODIUM,PORCINE 5,000 UNIT/ML 1 ML VIAL SQ SCH ×2 (08:38→16:31)
[2020-02-06] MEDS: ASCORBIC ACID 500 MG TAB PO SCH (08:39)
[2020-02-06] MEDS: BISOPROLOL 5 MG TAB PO SCH (08:39)
[2020-02-06] MEDS: AMIODARONE 200 MG TAB PO SCH (08:39)
[2020-02-06] MEDS: metroNIDAZOLE 500 MG TAB PO SCH ×3 (08:39→21:35)
[2020-02-06] MEDS: MAGNESIUM OXIDE 400 MG TAB PO SCH ×2 (08:40→21:35)
[2020-02-06] MEDS: FERROUS SULFATE 325 MG TAB PO SCH (08:40)
[2020-02-06] MEDS: VALSARTAN 160 MG TAB PO SCH (08:40)
[2020-02-06] MEDS: traMADol 50 MG TAB PO SCH ×3 (08:40→21:35)
[2020-02-06] MEDS: DULoxetine HCL 60 MG CAPSULE.DR PO SCH (08:41)
--- NOTE | 2020-02-06 10:14 | P.PN ---
Subjective Progress Note Date: 02/06/20 Principal diagnosis: This is a 55-year-old female patient who follows with Dr. Leroy on an outpatient basis. She has a past medical history of poorly differentiated squamous cell carcinoma, status post left upper lobectomy on 12/31/2019, hypertension, hyperlipidemia, chronic tobacco abuse, type 2 diabetes mellitus, cervical cancer status post hysterectomy, anxiety and bipolar disorder. On 01/28/2020 she had a follow-up visit with Dr. Teddy Wilkins for her pathology results of her recent left upper lobectomy. Upon exam of her surgical incisions there was a fluctuant area which was painful to touch on her left chest. Subsequently she was started on oral Keflex. Yesterday morning she developed some drainage from that incision site with the fluctuant area, leaking foul smelling yellowish fluid. Her initial lab results showed a WBC count 12.0, Hgb 8.3, neutrophils 59%, positive band neutrophil percent 24 and neutrophil numbers 9.0. A chest x-ray was completed which demonstrated a normal and the left hydropneumothorax, with no significant interval changes. She was admitted to observation to determine further treatment plans and surgical incision with consultation placed to Dr. Teddy Wilkins. POD #3 left thoracotomey. total lung decortication, pectoralis major pedicle flap transposition into the left pleural space, cryoablation of the intercostal nerves. Postoperative acute blood loss anemia, an expected outcome of surgery. Postoperative hypotension, an expected outcome due to hypovolemia. On 02/04/2020 the patient was seen in follow-up at her bedside in the intensive care unit. She is sitting up to the bedside chair, she is alert, oriented 3. She is in no acute distress. Denies any complaints of shortness of breath and is complaining of some surgical type pain to her left chest tube insertion sites. She remains hemodynamically stable and is currently on no inotropic or pressor support. She did receive 2 250 mL 5% albumin and 1 unit of PRBCs last night for a hemoglobin of 7.9 and for some hypotension. Currently her blood pressure is 113/38 and her heart rate is sinus bradycardia 57 BPM. She remains with 3 left pleural chest tubes connected to low continuous wall suction -20 cm H2O. No air leak is present. Draining thin serosanguineous drainage. The anterior chest tubes drained 500 mL output since surgery and her posterior chest tube drained 130 mL output since surgery. She is achieving 1000 mL on her incentive spirometry with encouragement. Oxygen saturations are 98% on room air. Laboratory results morning show a WBC count 13.0, hemoglobin 7.9, platelets 515, BUN 14, creatinine 1.36 and magnesium 1.5. A repeat chest x-ray was completed this morning which demonstrated left-sided surgical changes with chest tubes and complete opacified left hemithorax without mediastinal shift. It also demonstrated improving overlying subcutaneous emphysema. She does have a Nolasco catheter in place for accurate I's and O's. On 02/05/2020 the patient was seen in follow-up at her bedside in the intensive care unit. She is currently laying in bed comfortably, she is awake, alert and oriented 3. She is in no acute distress and remained hemodynamically stable. Her hypotension is resolved and currently her blood pressure is 127/81 mmHg and is on no inotropic or pressor support. She denies any complaints of shortness of breath and reports her pain is well controlled with the current when necessary orders. Oxygen saturations are 98% on room air and she is achieving 1000 mL on her incentive spirometry. Chest x-ray was completed this morning which shows 3 left-sided chest tubes with continued complete whiteout of the left hemithorax and the patchy opacity in the periphery of the right mid lower lung. Laboratory results today show WBC 10.6, hemoglobin 7.0, platelets 516, BUN 19, creatinine 1.27 and magnesium 2.2. Her wound culture from her left chest completed on 01/29/2020 showed Actinomyces odontolyticus, infectious disease is following and she is currently on Rocephin and Flagyl for antibiotic coverage. Wound care was completed to her superficial left chest wound this morning and was packed with iodoform gauze. She remains with 3 left pleural chest tubes in place to low continuous wall suction -20 cm H2O. Small intermittent airleak present to her posterior chest tube. The chest tubes are d raining thin serosanguineous drainage with 80 mL out of her anterior chest tubes in the last 8 hours and 280 mL output in the last 24 hours. 140 mL output out of her posterior chest tube in the last 8 hours and 200 mL output in the last 24 hours. Right radial arterial line remains in place and functioning. On 02/06/2020 patient was seen in follow-up at her bedside in the intensive care unit. She is sitting up to the bedside chair, and is in no acute distress. The patient is awake, alert and oriented 3. She is hemodynamically stable and has been afebrile the last 24 hours. Currently denies any complaints of pain or shortness of breath. She does report that she had some episodes of surgical type pain to her left chest throughout the night rating her pain 5 out of 10 but was well controlled with the pain medication she received. With assistance the patient was ambulated in her room and did a round 5 laps of the length of room with minimal assistance. Her left pleural chest tubes remain in place to low continuous wall suction -20 cm H2O. She did have a positive air leak once the dressings were removed from her chest tube sites today. The airleak to the chest tubes did resolve once her dressings were reapplied. The chest tubes are draining thin serosanguineous drainage with her posterior chest tube draining 170 mL output the last 24 hours, and her anterior chest tubes draining 160 mL output in the last 24 hours. The dressing to her left chest superficial wound was changed and the wound was packed with iodoform gauze and covered with 4 x 4 gauze and secured with tape. The wound appeared clean with scant serosanguineous drainage. A chest x-ray was completed this morning which showed continuing complete opacity of the left lung, and improving subcutaneous emphy sema on the left and some worsening peripheral airspace disease on the right. Oxygen saturations are 97% on 2 L nasal cannula and she is achieving 1000 mL on her incentive spirometry. Laboratory results today show a WBC count 12.6, hemoglobin 7.2, platelets 613, sodium 135, venous CO2 20, BUN 19, and a creatinine of 0.94. She is transfer orders in place for the cardiac stepdown unit and is waiting for a bed. Objective - Vital Signs Vital signs: Vital Signs Temp 97.8 F 02/06/20 04:00 Pulse 76 02/05/20 20:00 Resp 23 02/06/20 04:00 BP 170/70 02/06/20 04:00 Pulse Ox 97 02/06/20 04:00 Intake & Output 02/05/20 02/06/20 02/06/20 18:59 06:59 18:59 Intake Total 195 60 Output Total 150 1005 Balance 45 -945 Weight 73 kg 73 kg Intake: IV 195 60 0.9 NS Pressure Bag 15 Sodium Chloride 0.9% 1, 180 60 000 ml @ 100 mls/hr IV . Q10H [facility] Rx#:[id number] Output: Chest Tube Drainage 90 455 Chest Tube Left Lateral 40 270 Chest Chest Tube Left Posterior 50 185 Chest Urine 60 550 Other: Voiding Method Indwelling Catheter ABP, PAP, CO, CI - Last Documented Arterial Blood Pressure 170/95 - Exam This is a 55-year-old pleasant female patient who is sitting up to the bedside chair in the intensive care unit. She is in no acute distress. Oxygen saturations are 97 percent on 2 L nasal cannula. She is hemodynamically stable. - Constitutional General appearance: Present: average body habitus, cooperative, no acute distress - EENT Eyes: Present: PERRLA, normal appearance. Absent: scleral icterus ENT: Present: hearing grossly normal, normal oropharynx. Absent: thrush - Neck Details: Neck is supple, no lymphadenopathy. Neck: Absent: lymphadenopathy, stridor - Respiratory Details: Lung sounds are essentially clear to her bilateral upper lobes, diminished bilateral bases left greater than right. Oxygen saturation is 97% on 2 L nasal cannula. Respirations are symmetrical and nonlabored. Achieving 1000 mL on her incentive spirometry. Left pleural chest tubes in place to low continuous wall suction -20 cm H2O. Intermittent air leak is present with dressing change to her chest tubes. Draining thin serosanguineous drainage with the posterior chest tube draining 170 mL output in the last 24 hours and the anterior chest tubes draining 160 mL output last 24 hours. - Cardiovascular Details: Regular rhythm and rate. S1 and S2 present, negative for S3, gallop or murmur. Bedside telemetry showing normal sinus rhythm heart rate 70. No edema present. Knee-high JOHAN hose and sequential compression devices in place were bilateral lower extremities. - Gastrointestinal Gastrointestinal Comment(s): Abdomen is soft, nontender and nondistended. Active bowel sounds present all 4 abdominal quadrants. No guarding or rigidity. No organomegaly appreciated. - Integumentary Integumentary Comment(s): Skin is warm and dry. No cyanosis is present. Dressing is clean, dry and intact to her left chest superficial wound. - Neurologic Neurologic: Present: CNII-XII intact - Musculoskeletal Musculoskeletal: Present: gait normal, generalized weakness, strength equal bilaterally - Psychiatric Psychiatric: Present: A&O x's 3, appropriate affect, intact judgment & insight - Allied health notes Allied health notes reviewed: nursing - Labs CBC & Chem 7: 02/06/20 04:35 02/06/20 04:35 Labs: Abnormal Lab Results - Last 24 Hours (Table) 02/05/20 02/05/20 02/05/20 Range/Units 12:26 17:09 20:25 WBC (3.8-10.6) k/uL RBC (3.80-5.40) m/uL Hgb (11.4-16.0) gm/dL Hct (34.0-46.0) % MCHC (31.0-37.0) g/dL RDW (11.5-15.5) % Plt Count (150-450) k/uL Neutrophils # (1.3-7.7) k/uL Sodium (137-145) mmol/L Carbon Dioxide (22-30) mmol/L BUN (7-17) mg/dL Glucose (74-99) mg/dL POC Glucose (mg/dL) 139 H 131 H 164 H (75-99) mg/dL Calcium (8.4-10.2) mg/dL Total Protein (6.3-8.2) g/dL Albumin (3.5-5.0) g/dL 02/06/20 02/06/20 02/06/20 Range/Units 04:35 04:35 06:46 WBC 12.6 H (3.8-10.6) k/uL RBC 2.71 L (3.80-5.40) m/uL Hgb 7.2 L (11.4-16.0) gm/dL Hct 23.8 L (34.0-46.0) % MCHC 30.2 L (31.0-37.0) g/dL RDW 16.3 H (11.5-15.5) % Plt Count 613 H (150-450) k/uL Neutrophils # 10.9 H (1.3-7.7) k/uL Sodium 135 L (137-145) mmol/L Carbon Dioxide 20 L (22-30) mmol/L BUN 19 H (7-17) mg/dL Glucose 115 H (74-99) mg/dL POC Glucose (mg/dL) 136 H (75-99) mg/dL Calcium 8.1 L (8.4-10.2) mg/dL Total Protein 5.1 L (6.3-8.2) g/dL Albumin 2.3 L (3.5-5.0) g/dL Microbiology - Last 24 Hours (Table) 01/29/20 09:00 Gram Stain - Final Chest Wound Culture - Final Actinomyces odontolyticus - Imaging and Cardiology Chest x-ray: report reviewed, image reviewed Assessment and Plan Assessment: 1. Empyema left chest status post left upper lobectomy, status post left thoracotomy, total lung decortication, pectoralis major pedicle flap transposition into the left pleural space, cryoablation of intercostal nerves. 2. Superficial wound, with culture from 01/29/2020 positive for Actinomyces odontolyticus. Currently on Rocephin and Flagyl managed by infectious disease 3. History of poorly differentiated squamous cell carcinoma, status post left upper lobectomy on 12/31/2019 4. History of hypertension 5. History of hyperlipidemia 6. Previous tobacco dependence 7. Type 2 diabetes 8. History of cervical cancer status post hysterectomy 9. History of anxiety/bipolar disorder 10. Postoperative acute blood loss anemia, an expected outcome 11. Postoperative hypotension, an expected outcome, resolved Plan: 1. Keep left pleural chest tubes to low continuous wall suction -20 cm H2O. Continue to monitor accurate I&O. Continue to monitor for airleak resolution. 2. Encourage use of her incentive spirometry 10 times an hour while awake. 3. Continue to encourage smoking cessation. 4. Continue to hold Eliquis. 5. Dressing changed to her left chest today, we will change on a daily basis. Using one-inch iodoform gauze. We will likely transition to wound VAC on 02/08/2020. 6. Gram stain/culture obtained in the operating room yesterday shows no organisms seen after 24 hours. Final culture results remain pending. Initial culture from her left chest wound from 01/29/2020 showed Actinomyces odontolyticus continue Rocephin and Flagyl managed by infectious disease. The patient will need a PICC line for outpatient antibiotic treatment. 7. GI and DVT prophylaxis. 8. Out of bed for all meals. Increase activity as tolerated with walking in the room. Physical therapy following. 9. Transfer to third floor cardiac stepdown unit with remote telemetry when bed is available. 10. Lasix 20 mg IV 1 now. 11. Start ferrous sulfate 325 mg by mouth daily at lunch and vitamin C 500 mg by mouth daily. 12. Continue to monitor daily labs and chest x-rays. Replace electrolytes per protocol. 13. The patient's was updated on her care per phone and per the patient's request. 14. More recommendations to follow based on patient's clinical course. Time with Patient: Greater than 30
--- NOTE | 2020-02-06 11:21 | P.PN ---
Subjective Progress Note Date: 02/06/20 Principal diagnosis: Critically 5-year-old female well-known to the practice who underwent left upper lobectomy of the lung 12/31/2019 for poorly differentiated squamous cell carci noma. This is postop day #3 patient underwent left thoracotomy with total lung decortication pectoralis major pedicle flap transposition of the left pleural space cryoablation of the intercostal margin She is awake alert oriented 3 vital signs are stable patient has post operative acute blood loss anemia which was expected patient has no new complaints, has some recent increase in blood pressure hydralazine was increased to 50 mg 4 times daily and patient's Norvasc was increased to 10 mg once daily Norvasc is a long-acting antihypertensive but will take a little bit of time to reach steady state to effectively treat blood pressure Objective - Vital Signs Vital signs: Vital Signs Temp 98.6 F 02/06/20 08:00 Pulse 75 02/06/20 08:00 Resp 20 02/06/20 08:00 BP 174/76 02/06/20 08:00 Pulse Ox 98 02/06/20 08:00 Intake & Output 02/05/20 02/06/20 02/06/20 18:59 06:59 18:59 Intake Total 195 60 Output Total 150 1005 Balance 45 -945 Weight 73 kg 73 kg Intake: IV 195 60 0.9 NS Pressure Bag 15 Sodium Chloride 0.9% 1, 180 60 000 ml @ 100 mls/hr IV . Q10H [facility] Rx#:[id number] Output: Chest Tube Drainage 90 455 Chest Tube Left Lateral 40 270 Chest Chest Tube Left Posterior 50 185 Chest Urine 60 550 Other: Voiding Method Indwelling Catheter Toilet ABP, PAP, CO, CI - Last Documented Arterial Blood Pressure 170/95 - Exam Ulices in testing negative General: [Patient awake, alert and oriented times 3. Patient in no acute distress. No coug HEENT: [PERRL. EOMI. No pharyngeal erythema or exudate.] Neck: [No adenopathy.] Cardiac: [Heart regular in rate and rhythm. No S3. No S4. No clicks, rubs. No murmur.] Lungs: Breath sounds are absent on the left as expected breath sounds on the right clear Left thoracotomy noted clean and dry chest tube still in place on the left Abdomen: [No mass. No organomegaly. Bowel sounds presnt and normoactive in all 4 quadrants.] Extremes: [No edema no cyanosis no claudication normal pulses] : [] Musculoskeletal: [No joint erythema, edema or tenderness.] Skin: [No rash.] Neurologic: [No lateralizing deficits. CN II - XII grossly intact.] Lymphatic: [No adenopathy.] - Labs CBC & Chem 7: 02/06/20 04:35 02/06/20 04:35 Labs: Abnormal Lab Results - Last 24 Hours (Table) 02/05/20 02/05/20 02/05/20 Range/Units 12:26 17:09 20:25 WBC (3.8-10.6) k/uL RBC (3.80-5.40) m/uL Hgb (11.4-16.0) gm/dL Hct (34.0-46.0) % MCHC (31.0-37.0) g/dL RDW (11.5-15.5) % Plt Count (150-450) k/uL Neutrophils # (1.3-7.7) k/uL Sodium (137-145) mmol/L Carbon Dioxide (22-30) mmol/L BUN (7-17) mg/dL Glucose (74-99) mg/dL POC Glucose (mg/dL) 139 H 131 H 164 H (75-99) mg/dL Calcium (8.4-10.2) mg/dL Total Protein (6.3-8.2) g/dL Albumin (3.5-5.0) g/dL 02/06/20 02/06/20 02/06/20 Range/Units 04:35 04:35 06:46 WBC 12.6 H (3.8-10.6) k/uL RBC 2.71 L (3.80-5.40) m/uL Hgb 7.2 L (11.4-16.0) gm/dL Hct 23.8 L (34.0-46.0) % MCHC 30.2 L (31.0-37.0) g/dL RDW 16.3 H (11.5-15.5) % Plt Count 613 H (150-450) k/uL Neutrophils # 10.9 H (1.3-7.7) k/uL Sodium 135 L (137-145) mmol/L Carbon Dioxide 20 L (22-30) mmol/L BUN 19 H (7-17) mg/dL Glucose 115 H (74-99) mg/dL POC Glucose (mg/dL) 136 H (75-99) mg/dL Calcium 8.1 L (8.4-10.2) mg/dL Total Protein 5.1 L (6.3-8.2) g/dL Albumin 2.3 L (3.5-5.0) g/dL Microbiology - Last 24 Hours (Table) 01/29/20 09:00 Gram Stain - Final Chest Wound Culture - Final Actinomyces odontolyticus Assessment and Plan (1) S/P pneumonectomy Current Visit: Yes Status: Acute Code(s): Z90.2 - ACQUIRED ABSENCE OF LUNG [PART OF] SNOMED Code(s): 869180994 (2) Cough Current Visit: Yes Status: Acute Code(s): R05 - COUGH SNOMED Code(s): 93792751 (3) Empyema of left pleural space Current Visit: Yes Status: Acute Code(s): J86.9 - PYOTHORAX WITHOUT FISTULA SNOMED Code(s): 81127311 (4) Hydropneumothorax Current Visit: Yes Status: Acute Priority: High Code(s): J94.8 - OTHER SPECIFIED PLEURAL CONDITIONS SNOMED Code(s): 69376035 (5) Hypokalemia Current Visit: Yes Status: Acute Priority: High Code(s): E87.6 - HYPOKALEMIA SNOMED Code(s): 62118213 (6) Hyponatremia Current Visit: Yes Status: Acute Priority: Medium Code(s): E87.1 - HYPO- OSMOLALITY AND HYPONATREMIA SNOMED Code(s): 74032541 (7) COPD (chronic obstructive pulmonary disease) Current Visit: Yes Status: Chronic Priority: Medium Code(s): J44.9 - CHRONIC OBSTRUCTIVE PULMONARY DISEASE, UNSPECIFIED SNOMED Code(s): 85232562 (8) S/P lobectomy of lung Current Visit: Yes Status: Chronic Priority: Low Code(s): Z90.2 - ACQUIRED ABSENCE OF LUNG [PART OF] SNOMED Code(s): 38305352569263363 (9) Adenocarcinoma of lung Current Visit: No Status: Chronic Priority: Medium Code(s): C34.90 - MALIGNANT NEOPLASM OF UNSP PART OF UNSP BRONCHUS OR LUNG SNOMED Code(s): 115063833 (10) Essential (primary) hypertension Current Visit: No Status: Chronic Priority: Medium Code(s): I10 - ESSENTIAL (PRIMARY) HYPERTENSION SNOMED Code(s): 63149706 (11) Major depressive disorder, recurrent, moderate Current Visit: No Status: Chronic Priority: Medium Code(s): F33.1 - MAJOR DEPRESSIVE DISORDER, RECURRENT, MODERATE SNOMED Code(s): 950092374 (12) Type 2 diabetes mellitus without complications Current Visit: No Status: Chronic Priority: Medium Code(s): E11.9 - TYPE 2 DIABETES MELLITUS WITHOUT COMPLICATIONS SNOMED Code(s): 798923404 Plan: #1 left pleural chest tube to low continuous suction per cardiovascular thoracic surgery #2 superficial wound culture from 417 positive for actinomyces currently on Rocephin and Flagyl currently managed by ID #3 history of poorly differentiated squamous cell carcinoma status post left upper lobectomy 12/31/2019 #4 history of hypertension, currently controlled on hydralazine 50 mg 4 times daily recently started on Norvasc 10 mg daily #4 hyperlipidemia by history #5 previous tobacco dependence #6 type 2 diabetes well-controlled with no complications at this time #7 history of cervical cancer status post total hysterectomy #8 history of anxiety bipolar disorder #9 postop acute blood loss anemia as expected Plan #1 hypertensive control #2 encourage incentive spirometry 10 times an hour while awake #3 continue to encourage smoking cessation #4 hold Apixiban for now #5 is eating changes as ordered #6 encourage oral fluid intake #7 waiting on final Gram stain from or #8 GI and DVT prophylaxis #9 and decreased activity as tolerated physical therapy up in chair for meals #10 diuresis as scheduled #11 start iron sulfate 325 mg by mouth daily at lunch vitamin C by mouth daily #12 continue to monitor daily labs and chest x-rays replace potassium and magnesium as recommended #13 will continue to follow closely Time with Patient: Greater than 30
[2020-02-06 11:48] LABS: Glucose,Whole Blood 138 mg/dL (75-99)
--- NOTE | 2020-02-06 12:10 | P.PN ---
Subjective Progress Note Date: 02/06/20 This is a 55-year-old female patient who follows with Dr. Leroy on an outpatient basis. She has a past medical history of poorly differentiated squamous cell carcinoma, status post left upper lobectomy on 12/31/2019, hypertension, hyperlipidemia, chronic tobacco abuse, type 2 diabetes mellitus, cervical cancer status post hysterectomy, anxiety and bipolar disorder. On 01/28/2020 she had a follow-up visit with Dr. Teddy Wilkins for her pathology results of her recent left upper lobectomy. Upon exam of her surgical incisions there was a fluctuant area which was painful to touch on her left chest. Subsequently she was started on oral Keflex. Yesterday morning she developed some drainage from that incision site with the fluctuant area, leaking foul smelling yellowish fluid. Her initial lab results showed a WBC count 12.0, Hgb 8.3, neutrophils 59%, positive band neutrophil percent 24 and neutrophil numbers 9.0. A chest x-ray was completed which demonstrated a normal and the left hydropneumothorax, with no significant interval changes. She was admitted to observation to determine further treatment plans and surgical incision with consultation placed to Dr. Teddy Wilkins. On 01/30/2020 the patient was seen on the fourth floor medical surgical unit on follow-up. She is resting comfortably in bed, is in no acute distress and denies any complaints of shortness of breath. The patient does report she is having some intermittent pain to her left chest where her incision is draining. She does have a dressing which is clean and intact to her left chest which continues to drain thick foul-smelling yellowish colored drainage. Her Gram stain yesterday shows many gram-positive bacilli and she remains on Keflex for antibiotic treatment. She is hemodynamically stable, remains afebrile, although this morning her blood pressure is 176/71. Oxygen saturations are 96% on room air. Culture results from her surgical site to her left chest remains pending. The patient is seen today 01/31/2020 in follow-up on the regular medical floor. She is a resting comfortably in bed. Awake and alert in no acute distress. She denies any worsening shortness of breath. She has a dry cough. She states when she coughs she does feel like air escapes from her left chest wound. The wound continues to drain purulent drainage. There is also noted blood clots. She is maintaining O2 saturation in the 90s on room air. She's currently afebrile. Wound cultures revealing gram-positive bacilli. White count 5.8. Hemoglobin 6.9. Platelet count 1044. Sodium 133. Potassium 4.2. Creatinine 0.41. She's been initiated on vancomycin and meropenem. Anticoagulated with Eliquis. Currently in sinus rhythm. On today's evaluation of 02/03/2020, the patient is laying comfortably in bed. No signs of any significant respiratory distress pH is still draining purulent stuff from the left chest area and the dressing is stuffed and soaked. The culture is positive for gram possible solicitous and the patient remains on vancomycin. She is also on IV Merrem. She is hemodynamically stable. She is off the Eliquis in preparation for surgical thoracoscopic evaluation for empyema. The white cell count is at 4.6. Hemoglobin stable at 8.2. She is in a sinus rhythm. She did have a bout of proximal atrial fibrillation following her lung surgery and she's been in sinus since. No altered mentation. No other significant events overnight. On 02/04/2020 on seeing this patient in follow-up in the intensive care unit. Noted the patient was taken for thoracotomy yesterday regarding the empyema. The surgery was done successfully. Estimated blood loss was 300 mL. The patient underwent a left thoracotomy and total lung decortication in addition to a pectoralis major pedicle flap transposition into the left pleural space. The patient underwent also cryoablation of the intercostal nerves. A total of 3 chest tubes were placed into the left hemithorax and the patient was following that extubated and sent to the intensive care unit. Overnight she did extremely well. She remained hemodynamically stable. This morning the patient is on room air oxygen and she is sitting up on a chair. She was provided incentive spirometer. Her pulse ox is 96%. She is to the off anticoagulation. 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 For now the current antibiotic coverage is a combination of Merrem and vancomycin. The patient postop required IV fluid resuscitation. She received a total of 2 of 250 mL of 5% albumin and unit of packed RBC which helped her overall hemodynamics. There chest tubes on the left have drained 500 mL in the anterior tubes and 130s disease in the posterior 2. The white cell count at 13.9. Hemoglobin is at 7.9. Creatinine is at 1.36. The chest x-ray shows that the tubes are in place and the patient has significant opacification of left hemithorax and also there is evidence of some improving subcu his emphysema. The patient has a Nolasco catheter in place. The patient is awake and alert and she denies having any specific complaints for now. On 02/05/2020, the patient is being seen in follow-up in the intensive care unit. The patient is postop day #2. She is doing well. She is able to stop on a chair. No fever or chills. As mentioned earlier the patient was found to be a Actinomyces infection in the left pleural space and the patient is currently on IV Rocephin and Flagyl. The patient is ALLERGIC to penicillin this medication was not provided to her. She developed an extensive rash to that. She also is receiving wound care and the patient has a superficial left chest wound was packed with iodoform gauze by the surgical team this morning. The patient also has a total of 3 chest tubes in her left pleural space. The chest tubes are attached to continuous wall suction and there is some intermittent leak and the posterior chest tubes. Output from the chest tube has been serosanguineous in order of 80 mL in the anterior chest tube and 280 mL over the past 24 hours. Output from the posterior chest tubes has been 200 mL over the past 24 hours. The patient is afebrile. The patient using incentive spirometer. Denies having any chest pain. No altered mentation. No other significant events otherwise over the past 24 hours. Her cardiac rhythm remains sinus. On 02/06/2020, the patient remains in the intensive care unit. She is feeling slightly more short of breath and she is postop day #3. On today's chest x-ray, there is development of some vague interstitial infiltrates in the right lung and this was quite concerning. Currently she is on 2 L about oxygen by nasal cannula. She admits that her breathing is slightly worse compared to yesterday. She is afebrile. No significant leukocytosis. As for the left lung findings, the patient continues to have chest tubes in place, to posterior and one lateral chest tube. Note that the drainage from the chest is a been serosanguineous and the posterior chest tube and drained on 170 mL over the past 24 hours in the lateral chest tube drained on Lasix he is over the past 24 hours. There is also a left chest superficial wound and dressing was changed by the surgeons today and it was covered by 4 x 4 gauze. The chest tubes are showing intermittent leaking. Based on today's chest x-ray findings, the patient was given a dose of Lasix 20 mg IV push. She was in a positive fluid balance. As mentioned, there is no significant leukocytosis and the white cell count of 12.6. In the liver was stable at 7.2. Function is also stable. The patient utilizing incentive spirometer. Surgical wound site over the left chest areas dry clean and intact. As mentioned earlier, she was found to have an excellent lysis infection of the lung and the patient remains on a combination of Rocephin and Flagyl for now. Objective - Vital Signs Vital signs: Vital Signs Temp 98.6 F 02/06/20 08:00 Pulse 75 02/06/20 08:00 Resp 20 02/06/20 08:00 BP 174/76 02/06/20 08:00 Pulse Ox 98 02/06/20 08:00 Intake & Output 02/05/20 02/06/20 02/06/20 18:59 06:59 18:59 Intake Total 195 60 410 Output Total 150 1005 580 Balance 45 -945 -170 Weight 73 kg 73 kg Intake: IV 195 60 0.9 NS Pressure Bag 15 Sodium Chloride 0.9% 1, 180 60 000 ml @ 100 mls/hr IV . Q10H [facility] Rx#:[id number] Intake, IV Titration 50 Amount cefTRIAXone 2 gm In 50 Sodium Chloride 0.9% 50 ml @ 100 mls/hr IVPB Q24HR [facility] Rx#:[id number] Oral 360 Output: Chest Tube Drainage 90 455 80 Chest Tube Left Lateral 40 270 30 Chest Chest Tube Left Posterior 50 185 50 Chest Urine 60 550 500 Other: Voiding Method Indwelling Catheter Toilet ABP, PAP, CO, CI - Last Documented Arterial Blood Pressure 170/95 - Exam This is a 55-year-old pleasant female patient who is sitting up to the bedside chair in the intensive care unit. She is in no acute distress. Oxygen saturations are 97 percent on 2 L nasal cannula. She is hemodynamically stable. - Constitutional General appearance: Present: average body habitus, cooperative, no acute distress - EENT Eyes: Present: PERRLA, normal appearance. Absent: scleral icterus ENT: Present: hearing grossly normal, normal oropharynx. Absent: thrush - Neck Details: Neck is supple, no lymphadenopathy. Neck: Absent: lymphadenopathy, stridor - Respiratory Details: Lung sounds are essentially clear to her bilateral upper lobes, diminished bilateral bases left greater than right. Oxygen saturation is 97% on 2 L nasal cannula. Respirations are symmetrical and nonlabored. Achieving 1000 mL on her incentive spirometry. Left pleural chest tubes in place to low continuous wall suction -20 cm H2O. Intermittent air leak is present with dressing change to her chest tubes. Draining thin serosanguineous drainage with the posterior chest tube draining 170 mL output in the last 24 hours and the anterior chest tubes draining 160 mL output last 24 hours. - Cardiovascular Details: Regular rhythm and rate. S1 and S2 present, negative for S3, gallop or murmur. Bedside telemetry showing normal sinus rhythm heart rate 70. No edema present. Knee-high JOHAN hose and sequential compression devices in place were bilateral lower extremities. - Gastrointestinal Gastrointestinal Comment(s): Abdomen is soft, nontender and nondistended. Active bowel sounds present all 4 abdominal quadrants. No guarding or rigidity. No organomegaly appreciated. - Integumentary Integumentary Comment(s): Skin is warm and dry. No cyanosis is present. Dressing is clean, dry and intact to her left chest superficial wound. - Neurologic Neurologic: Present: CNII-XII intact - Musculoskeletal Musculoskeletal: Present: gait normal, generalized weakness, strength equal bilaterally - Labs CBC & Chem 7: 02/06/20 04:35 02/06/20 04:35 Labs: Abnormal Lab Results - Last 24 Hours (Table) 02/05/20 02/05/20 02/05/20 Range/Units 12:26 17:09 20:25 WBC (3.8-10.6) k/uL RBC (3.80-5.40) m/uL Hgb (11.4-16.0) gm/dL Hct (34.0-46.0) % MCHC (31.0-37.0) g/dL RDW (11.5-15.5) % Plt Count (150-450) k/uL Neutrophils # (1.3-7.7) k/uL Sodium (137-145) mmol/L Carbon Dioxide (22-30) mmol/L BUN (7-17) mg/dL Glucose (74-99) mg/dL POC Glucose (mg/dL) 139 H 131 H 164 H (75-99) mg/dL Calcium (8.4-10.2) mg/dL Total Protein (6.3-8.2) g/dL Albumin (3.5-5.0) g/dL Procalcitonin (0.02-0.09) ng/mL 02/06/20 02/06/20 02/06/20 Range/Units 04:35 04:35 04:35 WBC 12.6 H (3.8-10.6) k/uL RBC 2.71 L (3.80-5.40) m/uL Hgb 7.2 L (11.4-16.0) gm/dL Hct 23.8 L (34.0-46.0) % MCHC 30.2 L (31.0-37.0) g/dL RDW 16.3 H (11.5-15.5) % Plt Count 613 H (150-450) k/uL Neutrophils # 10.9 H (1.3-7.7) k/uL Sodium 135 L (137-145) mmol/L Carbon Dioxide 20 L (22-30) mmol/L BUN 19 H (7-17) mg/dL Glucose 115 H (74-99) mg/dL POC Glucose (mg/dL) (75-99) mg/dL Calcium 8.1 L (8.4-10.2) mg/dL Total Protein 5.1 L (6.3-8.2) g/dL Albumin 2.3 L (3.5-5.0) g/dL Procalcitonin 1.08 H (0.02-0.09) ng/mL 02/06/20 02/06/20 Range/Units 06:46 11:46 WBC (3.8-10.6) k/uL RBC (3.80-5.40) m/uL Hgb (11.4-16.0) gm/dL Hct (34.0-46.0) % MCHC (31.0-37.0) g/dL RDW (11.5-15.5) % Plt Count (150-450) k/uL Neutrophils # (1.3-7.7) k/uL Sodium (137-145) mmol/L Carbon Dioxide (22-30) mmol/L BUN (7-17) mg/dL Glucose (74-99) mg/dL POC Glucose (mg/dL) 136 H 138 H (75-99) mg/dL Calcium (8.4-10.2) mg/dL Total Protein (6.3-8.2) g/dL Albumin (3.5-5.0) g/dL Procalcitonin (0.02-0.09) ng/mL Microbiology - Last 24 Hours (Table) 01/29/20 09:00 Gram Stain - Final Chest Wound Culture - Final Actinomyces odontolyticus Assessment and Plan Plan: 1 left lung empyema and the patient is post left upper lobectomy on 12/31/2019 , with cultures indicating actinomyces infection. The patient was taken to the operating room and the patient underwent a left thoracotomy, total left decortication, pectoralis major pedicle flap transposition into the left pleural space in addition to cryoablation of the intercostal nerves. She is postop day #3. The patient was cultured to have actinomyces infection of the left lung with secondary empyema and the patient remains on a combination of Rocephin and Flagyl per IDs recommendation. Chest tubes are in place. Output from the chest tube has been noted and there be kept in place 524 hours. There is also a wound over the left anterior chest aspect which has been packed with iodoform it was dressed. The wound is also covered. There is limited amount of air leak from the chest tubes. The chest will be kept in place for today. Chest x-ray still showing significant prescription of the left lung with adequate positioning of the left-sided chest tubes. Meanwhile, the patient developed some worsening shortness of breath and currently some 2 L of oxygen by nasal cannula. Consider acute lung injury. Consider developing pneumonia. Consider interstitial pneumonia. We'll continue to follow. 2 Acute anemia possibly related to blood clot/pooling/hematoma the left chest, and hemoglobin down to 7.2. Note that the patient already received 2 units of packed RBC. 3 Recent left upper lobectomy on 12/31/2019 found to be poorly differentiated squamous cell carcinoma, the patient has T4 N0 M0 disease 4 Previous chronic tobacco dependence 5 Hypertension 6 Hyperlipidemia 7 Diabetes mellitus, type II 8 History of cervical cancer status post hysterectomy 9 History of anxiety/bipolar disorder Plan Provide the patient incentive spirometer Keep the chest of the test. Pleural VAC and suction at 20 cm of water Monitor output from the chest tubes, and there is also intermittent leak from the chest tubes and these to monitored Applied appropriate dressing over the left anterior chest wound with iodoform packing and 4 x 4 gauze Consider applying a wound VAC to that left anterior chest wall wound and this will be discussed with the cardiac and thoracic surgeons No need for any anticoagulation for now Antibiotic coverage would include a combination of Rocephin and Flagyl per ID Monitor hemoglobin, currently at 7.2 Monitor daily chest x-rays, as the patient developed some new interstitial infiltrates in the right lung and the patient will be given a dose of Lasix 20 mg of fresh and the patient is currently on 2 L about oxygen by nasal cannula. Monitor renal function Monitor blood sugars Monitor surgical wound Keep the chest tube in place for today We'll continue to follow make further recommendations based on overall progress. We'll keep the patient ICU. We'll continue to follow. The surgical pathology was consistent with empyema.
[2020-02-06 16:40] LABS: Glucose,Whole Blood 150 mg/dL (75-99)
--- NOTE | 2020-02-06 17:31 | PN ---
PROGRESS NOTE DATE OF SERVICE: 02/06/2020 REASON FOR FOLLOW UP: Empyema. INTERVAL HISTORY: The patient is currently afebrile. She complains of some pain to the left lower chest site of chest tube insertion, but no worsening. Did have some cough with occasional sputum. Some nausea from medication, but no vomiting. No abdominal pain or diarrhea. PHYSICAL EXAMINATION: Blood pressure 115/59, pulse 74, temperature 97.5. She is 100% on 2 L. General description: The patient is a middle-aged female up in the bed in no distress. Respiratory system: Unlabored breathing, clear to auscultation anteriorly. Heart S1, S2. Regular rate and rhythm. ABDOMEN: Soft, no tenderness. LABS: Hemoglobin 7.8, white count 12.7, BUN of 19, creatinine 0.94. DIAGNOSTIC IMPRESSION AND PLAN: Patient with left-sided empyema, status post decortication. Initial culture with Actinomyces. Cultures currently pending. Patient is on Rocephin and Flagyl because of her PENICILLIN ALLERGY. She will get a PICC line on Saturday to continuation of IV antibiotic in the outpatient setting and monitor clinical course closely. MMODL / IJN: [id number] /
[2020-02-06 20:33] LABS: Glucose,Whole Blood 173 mg/dL (75-99)
[2020-02-06] MEDS: SENNOSIDES-DOCUSATE SODIUM 1 EACH TAB PO SCH (21:36)
[2020-02-07] MEDS: KETOROLAC 30 MG/ML 1 ML VIAL IVP SCH ×5 (00:02→21:35)
[2020-02-07] MEDS: HEPARIN SODIUM,PORCINE 5,000 UNIT/ML 1 ML VIAL SQ SCH ×3 (00:02→17:07)
[2020-02-07 05:46] LABS: Glucose,Whole Blood 149 mg/dL (75-99)
[2020-02-07] MEDS: metFORMIN 500 MG TAB PO SCH ×2 (06:28→17:13)
[2020-02-07] MEDS: PANTOPRAZOLE 40 MG TABLET PO SCH (06:28)
[2020-02-07] MEDS: INSULIN ASPART (NovoLOG) 100 UNIT/ML VIAL SQ SCH ×4 (06:28→21:39)
[2020-02-07 07:09] LABS: Anisocytosis Slight; Basophils % (A) 0 %; Eosinophils % (A) 0 %; HGB 7.8 gm/dL (11.4-16.0); Hypochromasia Marked; Lymphocytes # (A) 0.9 k/uL (1.0-4.8); Lymphocytes % (A) 8 %; MCH 26.1 pg (25.0-35.0); MCV 84.1 fL (80.0-100.0); Monocytes # (A) 0.5 k/uL (0-1.0); Monocytes % (A) 5 %; Neutrophils # (A) 8.9 k/uL (1.3-7.7); Neutrophils % (A) 84 %; Platelet Count 668 k/uL (150-450); Poikilocytosis Slight; RBC 2.98 m/uL (3.80-5.40); RDW 16.8 % (11.5-15.5); WBC 10.7 k/uL (3.8-10.6)
--- NOTE | 2020-02-07 07:21 | XR ---
EXAMINATION TYPE: XR chest 1V portable DATE OF EXAM: 02/07/2020 HISTORY: Postoperative left thoracotomy with decortication. REFERENCE: Previous study dated 02/06/2020. FINDINGS: 2 left pleural drains remain in place. There is improving suspect contains emphysema. There has developed a focal area of lucency in the left apex. This is suspicious for abscess. Simple hydro pneumothorax could give a similar appearance. There are patchy right-sided infiltrates. These have perhaps worsened. Mediastinal structures are maria antonia fted towards the left and the heart is obscured. IMPRESSION: 1. SMALL AIR-FLUID LEVEL IN THE LEFT APEX DESCRIBED. 2. CONTINUING, PATCHY, BILATERAL INFILTRATES WHICH MAY HAVE WORSENED SLIGHTLY FROM THE PREVIOUS.
[2020-02-07 07:24] LABS: Albumin 2.5 g/dL (3.5-5.0); Calcium 8.2 mg/dL (8.4-10.2); Potassium 3.7 mmol/L (3.5-5.1); Total Bilirubin 0.4 mg/dL (0.2-1.3); Total Protein 5.9 g/dL (6.3-8.2)
[2020-02-07] MEDS ORDERED: POTASSIUM CHLORIDE ER 20 MEQ TAB.ER PO SCH (08:00)
[2020-02-07] MEDS: traMADol 50 MG TAB PO SCH ×3 (10:08→21:39)
[2020-02-07] MEDS: amLODIPine 10 MG TAB PO SCH (10:08)
[2020-02-07] MEDS: AMIODARONE 200 MG TAB PO SCH (10:08)
[2020-02-07] MEDS: hydrALAZINE HCL 50 MG TAB PO SCH ×4 (10:08→21:40)
[2020-02-07] MEDS: DULoxetine HCL 60 MG CAPSULE.DR PO SCH (10:09)
[2020-02-07] MEDS: ASCORBIC ACID 500 MG TAB PO SCH (10:09)
[2020-02-07] MEDS: MAGNESIUM OXIDE 400 MG TAB PO SCH ×2 (10:09→21:39)
[2020-02-07] MEDS: metroNIDAZOLE 500 MG TAB PO SCH ×3 (10:09→21:40)
[2020-02-07] MEDS: VALSARTAN 160 MG TAB PO SCH (10:10)
[2020-02-07] MEDS: BISOPROLOL 5 MG TAB PO SCH (10:10)
[2020-02-07] MEDS: SODIUM CHLORIDE 0.9% 1,000 ML IV SCH ×2 (10:14→20:50)
--- NOTE | 2020-02-07 10:37 | P.PN ---
Subjective Progress Note Date: 02/07/20 Principal diagnosis: This is a 55-year-old female patient who follows with Dr. Leroy on an outpatient basis. She has a past medical history of poorly differentiated squamous cell carcinoma, status post left upper lobectomy on 12/31/2019, hypertension, hyperlipidemia, chronic tobacco abuse, type 2 diabetes mellitus, cervical cancer status post hysterectomy, anxiety and bipolar disorder. On 01/28/2020 she had a follow-up visit with Dr. Teddy Wilkins for her pathology results of her recent left upper lobectomy. Upon exam of her surgical incisions there was a fluctuant area which was painful to touch on her left chest. Subsequently she was started on oral Keflex. Yesterday morning she developed some drainage from that incision site with the fluctuant area, leaking foul smelling yellowish fluid. Her initial lab results showed a WBC count 12.0, Hgb 8.3, neutrophils 59%, positive band neutrophil percent 24 and neutrophil numbers 9.0. A chest x-ray was completed which demonstrated a normal and the left hydropneumothorax, with no significant interval changes. She was admitted to observation to determine further treatment plans and surgical incision with consultation placed to Dr. Teddy Wilkins. POD #4 left thoracotomey. total lung decortication, pectoralis major pedicle flap transposition into the left pleural space, cryoablation of the intercostal nerves. Postoperative acute blood loss anemia, an expected outcome of surgery. Postoperative hypotension, an expected outcome due to hypovolemia. On 02/04/2020 the patient was seen in follow-up at her bedside in the intensive care unit. She is sitting up to the bedside chair, she is alert, oriented 3. She is in no acute distress. Denies any complaints of shortness of breath and is complaining of some surgical type pain to her left chest tube insertion sites. She remains hemodynamically stable and is currently on no inotropic or pressor support. She did receive 2 250 mL 5% albumin and 1 unit of PRBCs last night for a hemoglobin of 7.9 and for some hypotension. Currently her blood pressure is 113/38 and her heart rate is sinus bradycardia 57 BPM. She remains with 3 left pleural chest tubes connected to low continuous wall suction -20 cm H2O. No air leak is present. Draining thin serosanguineous drainage. The anterior chest tubes drained 500 mL output since surgery and her posterior chest tube drained 130 mL output since surgery. She is achieving 1000 mL on her incentive spirometry with encouragement. Oxygen saturations are 98% on room air. Laboratory results morning show a WBC count 13.0, hemoglobin 7.9, platelets 515, BUN 14, creatinine 1.36 and magnesium 1.5. A repeat chest x-ray was completed this morning which demonstrated left-sided surgical changes with chest tubes and complete opacified left hemithorax without mediastinal shift. It also demonstrated improving overlying subcutaneous emphysema. She does have a Nolasco catheter in place for accurate I's and O's. On 02/05/2020 the patient was seen in follow-up at her bedside in the intensive care unit. She is currently laying in bed comfortably, she is awake, alert and oriented 3. She is in no acute distress and remained hemodynamically stable. Her hypotension is resolved and currently her blood pressure is 127/81 mmHg and is on no inotropic or pressor support. She denies any complaints of shortness of breath and reports her pain is well controlled with the current when necessary orders. Oxygen saturations are 98% on room air and she is achieving 1000 mL on her incentive spirometry. Chest x-ray was completed this morning which shows 3 left-sided chest tubes with continued complete whiteout of the left hemithorax and the patchy opacity in the periphery of the right mid lower lung. Laboratory results today show WBC 10.6, hemoglobin 7.0, platelets 516, BUN 19, creatinine 1.27 and magnesium 2.2. Her wound culture from her left chest completed on 01/29/2020 showed Actinomyces odontolyticus, infectious disease is following and she is currently on Rocephin and Flagyl for antibiotic coverage. Wound care was completed to her superficial left chest wound this morning and was packed with iodoform gauze. She remains with 3 left pleural chest tubes in place to low continuous wall suction -20 cm H2O. Small intermittent airleak present to her posterior chest tube. The chest tubes are d raining thin serosanguineous drainage with 80 mL out of her anterior chest tubes in the last 8 hours and 280 mL output in the last 24 hours. 140 mL output out of her posterior chest tube in the last 8 hours and 200 mL output in the last 24 hours. Right radial arterial line remains in place and functioning. On 02/06/2020 patient was seen in follow-up at her bedside in the intensive care unit. She is sitting up to the bedside chair, and is in no acute distress. The patient is awake, alert and oriented 3. She is hemodynamically stable and has been afebrile the last 24 hours. Currently denies any complaints of pain or shortness of breath. She does report that she had some episodes of surgical type pain to her left chest throughout the night rating her pain 5 out of 10 but was well controlled with the pain medication she received. With assistance the patient was ambulated in her room and did a round 5 laps of the length of room with minimal assistance. Her left pleural chest tubes remain in place to low continuous wall suction -20 cm H2O. She did have a positive air leak once the dressings were removed from her chest tube sites today. The airleak to the chest tubes did resolve once her dressings were reapplied. The chest tubes are draining thin serosanguineous drainage with her posterior chest tube draining 170 mL output the last 24 hours, and her anterior chest tubes draining 160 mL output in the last 24 hours. The dressing to her left chest superficial wound was changed and the wound was packed with iodoform gauze and covered with 4 x 4 gauze and secured with tape. The wound appeared clean with scant serosanguineous drainage. A chest x-ray was completed this morning which showed continuing complete opacity of the left lung, and improving subcutaneous emphy sema on the left and some worsening peripheral airspace disease on the right. Oxygen saturations are 97% on 2 L nasal cannula and she is achieving 1000 mL on her incentive spirometry. Laboratory results today show a WBC count 12.6, hemoglobin 7.2, platelets 613, sodium 135, venous CO2 20, BUN 19, and a creatinine of 0.94. She is transfer orders in place for the cardiac stepdown unit and is waiting for a bed. On 02/07/2020 the patient was seen in follow-up at her bedside in the cardiac stepdown unit. Currently she is sitting up to the bedside chair, she is in no acute distress. She remained hemodynamically stable, has been afebrile in the last 24 hours, oxygen saturation are 97% on 2 L nasal cannula. Denies any complaints of pain at this time or shortness of breath. She did ambulate in her room and completed about 5 laps with minimal assistance and had some shortness of breath with exertion, although recovered quickly. Left pleural chest tubes remain in place to low continuous wall suction -20 cm H2O. Intermittent air leak is present. Posterior chest tube drained 180 mL output in the last 24 hours, and her anterior chest tubes drained 100 mL in the last 24 hours of thin serosanguineous drainage. She is achieving 1000 mL on her incentive spirometry with encouragement. Wound care was completed to her left chest superficial wound with packing her wound with 1 inch iodoform gauze, covered with 4 x 4 gauze and secured with tape. The wound appeared with pink granulating tissue and scant serosanguineous drainage. A chest x-ray was completed this morning and per the report shows a small air fluid level in the left apex, continuing patchy bilateral infiltrates which may be slightly worsened from her previous exam yesterday. Laboratory results today show a WBC count trending down 10.7, hemoglobin 7.8, platelets 668, BUN 15 and creatinine 0.84. Her wound culture from her left chest completed on 01/29/2020 showed Actinomyces odontolyticus, and infectious disease is following, she is currently on Rocephin and Flagyl for antibiotic coverage. Wound Gram stain obtained on 02/03/2020 continues to show no organisms seen and the aerobic wound culture shows no growth after 24 hours. Objective - Vital Signs Vital signs: Vital Signs Temp 97.9 F 02/07/20 08:00 Pulse 78 02/07/20 08:00 Resp 16 02/07/20 08:00 BP 137/63 02/07/20 08:00 Pulse Ox 97 02/07/20 08:00 Intake & Output 02/06/20 02/07/20 02/07/20 18:59 06:59 18:59 Intake Total 650 540 Output Total 610 260 Balance 40 280 Weight 69.6 kg Intake: Intake, IV Titration 50 Amount cefTRIAXone 2 gm In 50 Sodium Chloride 0.9% 50 ml @ 100 mls/hr IVPB Q24HR [facility] Rx#:[id number] Oral 600 540 Output: Chest Tube Drainage 110 130 Chest Tube Left Lateral 50 60 Chest Chest Tube Left Posterior 60 70 Chest Drainage 130 Left Lateral Chest 130 Urine 500 Other: Voiding Method Toilet Toilet # Voids 1 ABP, PAP, CO, CI - Last Documented Arterial Blood Pressure 170/95 - Exam This is a 55-year-old pleasant female patient who is sitting up to the bedside chair in the cardiac stepdown unit. She is in no acute distress. Oxygen saturations are 97 percent on 2 L nasal cannula. She is hemodynamically stable. - Constitutional General appearance: Present: average body habitus, cooperative, no acute distress - EENT Eyes: Present: PERRLA, dentition normal ENT: Present: hearing grossly normal, normal oropharynx - Neck Details: Neck is supple, no JVD. Neck: Absent: lymphadenopathy, thyromegaly - Respiratory Details: Lung sounds essentially clear to her right lobes, diminished bilateral bases left greater than right. Respirations are symmetrical and nonlabored. Oxygen saturation are 97% on 2 L nasal cannula. She is achieving 1000 mL on her incentive spirometry. Left pleural chest tubes remained in place to low continuous wall suction -20 cm H2O. Intermittent air leak is present. Draining thin serosanguineous drainage with the posterior chest tube draining 180 mL output in the last 24 hours, and her anterior chest tubes draining 100 mL output in the last 24 hours. - Cardiovascular Details: Regular rhythm and rate. S1 and S2 present, negative for S3, gallop or murmur. Knee-high JOHAN hose and sequential compression devices in place were bilateral lower extremities. No edema present. - Gastrointestinal Gastrointestinal Comment(s): Abdomen is soft, nontender and nondistended. Active bowel sounds present all 4 abdominal quadrants. No guarding or rigidity. No organomegaly appreciated. - Genitourinary Genitourinary Comment(s): Continues to void clear narendra urine. - Integumentary Integumentary Comment(s): Skin is warm and dry. No cyanosis present. No rash. Superficial wound to her left chest is pink with some granulating tissue and scant serosanguineous drainage. - Neurologic Neurologic: Present: CNII-XII intact - Musculoskeletal Musculoskeletal: Present: gait normal, generalized weakness, strength equal bilaterally - Psychiatric Psychiatric: Present: A&O x's 3, appropriate affect, intact judgment & insight - Allied health notes Allied health notes reviewed: nursing - Labs CBC & Chem 7: 02/07/20 06:46 02/07/20 06:46 Labs: Abnormal Lab Results - Last 24 Hours (Table) 02/06/20 02/06/20 02/06/20 Range/Units 04:35 11:46 16:39 WBC (3.8-10.6) k/uL RBC (3.80-5.40) m/uL Hgb (11.4-16.0) gm/dL Hct (34.0-46.0) % RDW (11.5-15.5) % Plt Count (150-450) k/uL Neutrophils # (1.3-7.7) k/uL Lymphocytes # (1.0-4.8) k/uL Carbon Dioxide (22-30) mmol/L Glucose (74-99) mg/dL POC Glucose (mg/dL) 138 H 150 H (75-99) mg/dL Calcium (8.4-10.2) mg/dL Total Protein (6.3-8.2) g/dL Albumin (3.5-5.0) g/dL Procalcitonin 1.08 H (0.02-0.09) ng/mL 02/06/20 02/07/20 02/07/20 Range/Units 20:31 05:45 06:46 WBC 10.7 H (3.8-10.6) k/uL RBC 2.98 L (3.80-5.40) m/uL Hgb 7.8 L (11.4-16.0) gm/dL Hct 25.0 L (34.0-46.0) % RDW 16.8 H (11.5-15.5) % Plt Count 668 H (150-450) k/uL Neutrophils # 8.9 H (1.3-7.7) k/uL Lymphocytes # 0.9 L (1.0-4.8) k/uL Carbon Dioxide (22-30) mmol/L Glucose (74-99) mg/dL POC Glucose (mg/dL) 173 H 149 H (75-99) mg/dL Calcium (8.4-10.2) mg/dL Total Protein (6.3-8.2) g/dL Albumin (3.5-5.0) g/dL Procalcitonin (0.02-0.09) ng/mL 02/07/20 Range/Units 06:46 WBC (3.8-10.6) k/uL RBC (3.80-5.40) m/uL Hgb (11.4-16.0) gm/dL Hct (34.0-46.0) % RDW (11.5-15.5) % Plt Count (150-450) k/uL Neutrophils # (1.3-7.7) k/uL Lymphocytes # (1.0-4.8) k/uL Carbon Dioxide 21 L (22-30) mmol/L Glucose 139 H (74-99) mg/dL POC Glucose (mg/dL) (75-99) mg/dL Calcium 8.2 L (8.4-10.2) mg/dL Total Protein 5.9 L (6.3-8.2) g/dL Albumin 2.5 L (3.5-5.0) g/dL Procalcitonin (0.02-0.09) ng/mL - Imaging and Cardiology Chest x-ray: report reviewed, image reviewed Assessment and Plan Assessment: 1. Empyema left chest status post left upper lobectomy, status post left thoracotomy, total lung decortication, pectoralis major pedicle flap transposition into the left pleural space, cryoablation of intercostal nerves. 2. Superficial wound, with culture from 01/29/2020 positive for Actinomyces odontolyticus. Currently on Rocephin and Flagyl managed by infectious disease 3. History of poorly differentiated squamous cell carcinoma, status post left upper lobectomy on 12/31/2019 4. History of hypertension 5. History of hyperlipidemia 6. Previous tobacco dependence 7. Type 2 diabetes 8. History of cervical cancer status post hysterectomy 9. History of anxiety/bipolar disorder 10. Postoperative acute blood loss anemia, an expected outcome 11. Postoperative hypotension, an expected outcome, resolved Plan: 1. Keep left pleural chest tubes to low continuous wall suction -20 cm H2O. Continue to monitor accurate I&O. Continue to monitor for airleak resolution. 2. Encourage use of her incentive spirometry 10 times an hour while awake. 3. Continue to encourage smoking cessation. 4. Continue to hold Eliquis. No further episodes of atrial fibrillation. Continue subcu heparin for DVT prophylaxis. 5. Dressing changed to her left chest today, we will change on a daily basis. Using one-inch iodoform gauze. We will likely transition to wound VAC tomorrow 02/08/2020. 6. Gram stain/culture obtained in the operating room yesterday shows no organisms seen after 24 hours. Final culture results remain pending. Initial culture from her left chest wound from 01/29/2020 showed Actinomyces odontolyticus continue Rocephin and Flagyl managed by infectious disease. The patient will need a PICC line for outpatient antibiotic treatment. 7. GI and DVT prophylaxis. 8. Out of bed for all meals. Increase activity as tolerated with walking in the room. Physical therapy following. 9. Continue ferrous sulfate 325 mg by mouth daily at lunch and vitamin C 500 mg by mouth daily. 10. Continue to monitor daily labs and chest x-rays. Replace electrolytes per protocol. 11. More recommendations to follow based on patient's clinical course. Time with Patient: Greater than 30
[2020-02-07 11:47] LABS: Glucose,Whole Blood 152 mg/dL (75-99)
[2020-02-07] MEDS: FERROUS SULFATE 325 MG TAB PO SCH (12:16)
--- NOTE | 2020-02-07 12:46 | P.PN ---
Subjective Progress Note Date: 02/07/20 Principal diagnosis: Draining of a left-sided chest superficial wound with foul-smelling yellowish fluid returned. Previous left upper lobectomy on 12/31/2019 This is a 55-year-old female patient who follows with Dr. Leroy on an outpatient basis. She has a past medical history of poorly differentiated squamous cell carcinoma, status post left upper lobectomy on 12/31/2019, hypertension, hyperlipidemia, chronic tobacco abuse, type 2 diabetes mellitus, cervical cancer status post hysterectomy, anxiety and bipolar disorder. On 01/28/2020 she had a follow-up visit with Dr. Teddy Wilkins for her pathology results of her recent left upper lobectomy. Upon exam of her surgical incisions there was a fluctuant area which was painful to touch on her left chest. Subsequently she was started on oral Keflex. Yesterday morning she developed some drainage from that incision site with the fluctuant area, leaking foul smelling yellowish fluid. Her initial lab results showed a WBC count 12.0, Hgb 8.3, neutrophils 59%, positive band neutrophil percent 24 and neutrophil numbers 9.0. A chest x-ray was completed which demonstrated a normal and the left hydropneumothorax, with no significant interval changes. She was admitted to observation to determine further treatment plans and surgical incision with consultation placed to Dr. Teddy Wilkins. On 01/30/2020 the patient was seen on the fourth floor medical surgical unit on follow-up. She is resting comfortably in bed, is in no acute distress and denies any complaints of shortness of breath. The patient does report she is having some intermittent pain to her left chest where her incision is draining. She does have a dressing which is clean and intact to her left chest which continues to drain thick foul-smelling yellowish colored drainage. Her Gram stain yesterday shows many gram-positive bacilli and she remains on Keflex for antibiotic treatment. She is hemodynamically stable, remains afebrile, although this morning her blood pressure is 176/71. Oxygen saturations are 96% on room air. Culture results from her surgical site to her left chest remains pending. The patient is seen today 01/31/2020 in follow-up on the regular medical floor. She is a resting comfortably in bed. Awake and alert in no acute distress. She denies any worsening shortness of breath. She has a dry cough. She states when she coughs she does feel like air escapes from her left chest wound. The wound continues to drain purulent drainage. There is also noted blood clots. She is maintaining O2 saturation in the 90s on room air. She's currently afebrile. Wound cultures revealing gram-positive bacilli. White count 5.8. Hemoglobin 6.9. Platelet count 1044. Sodium 133. Potassium 4.2. Creatinine 0.41. She's been initiated on vancomycin and meropenem. Anticoagulated with Eliquis. Currently in sinus rhythm. On today's evaluation of 02/03/2020, the patient is laying comfortably in bed. No signs of any significant respiratory distress pH is still draining purulent stuff from the left chest area and the dressing is stuffed and soaked. The culture is positive for gram possible solicitous and the patient remains on vancomycin. She is also on IV Merrem. She is hemodynamically stable. She is off the Eliquis in preparation for surgical thoracoscopic evaluation for empyema. The white cell count is at 4.6. Hemoglobin stable at 8.2. She is in a sinus rhythm. She did have a bout of proximal atrial fibrillation following her lung surgery and she's been in sinus since. No altered mentation. No other significant events overnight. On 02/04/2020 on seeing this patient in follow-up in the intensive care unit. Noted the patient was taken for thoracotomy yesterday regarding the empyema. The surgery was done successfully. Estimated blood loss was 300 mL. The patient underwent a left thoracotomy and total lung decortication in addition to a pectoralis major pedicle flap transposition into the left pleural space. The patient underwent also cryoablation of the intercostal nerves. A total of 3 chest tubes were placed into the left hemithorax and the patient was following that extubated and sent to the intensive care unit. Overnight she did extremely well. She remained hemodynamically stable. This morning the patient is on room air oxygen and she is sitting up on a chair. She was provided incentive spirometer. Her pulse ox is 96%. She is to the off anticoagulation. 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 For now the current antibiotic coverage is a combination of Merrem and vancomycin. The patient postop required IV fluid resuscitation. She received a total of 2 of 250 mL of 5% albumin and unit of packed RBC which helped her overall hemodynamics. There chest tubes on the left have drained 500 mL in the anterior tubes and 130s disease in the posterior 2. The white cell count at 13.9. Hemoglobin is at 7.9. Creatinine is at 1.36. The chest x-ray shows that the tu bes are in place and the patient has significant opacification of left hemithorax and also there is evidence of some improving subcu his emphysema. The patient has a Nolasco catheter in place. The patient is awake and alert and she denies having any specific complaints for now. On 02/05/2020, the patient is being seen in follow-up in the intensive care unit. The patient is postop day #2. She is doing well. She is able to stop on a chair. No fever or chills. As mentioned earlier the patient was found to be a Actinomyces infection in the left pleural space and the patient is currently on IV Rocephin and Flagyl. The patient is ALLERGIC to penicillin this medication was not provided to her. She developed an extensive rash to that. She also is receiving wound care and the patient has a superficial left chest wound was packed with iodoform gauze by the surgical team this morning. The patient also has a total of 3 chest tubes in her left pleural space. The chest tubes are attached to continuous wall suction and there is some intermittent leak and the posterior chest tubes. Output from the chest tube has been serosanguineous in order of 80 mL in the anterior chest tube and 280 mL over the past 24 hours. Output from the posterior chest tubes has been 200 mL over the past 24 hours. The patient is afebrile. The patient using incentive spirometer. Denies having any chest pain. No altered mentation. No other significant events otherwise over the past 24 hours. Her cardiac rhythm remains sinus. On 02/06/2020, the patient remains in the intensive care unit. She is feeling slightly more short of breath and she is postop day #3. On today's chest x-ray, there is development of some vague interstitial infiltrates in the right lung and this was quite concerning. Currently she is on 2 L about oxygen by nasal cannula. She admits that her breathing is slightly worse compared to yesterday. She is afebrile. No significant leukocytosis. As for the left lung findings, the patient continues to have chest tubes in place, to posterior and one lateral chest tube. Note that the drainage from the chest is a been serosanguineous and the posterior chest tube and drained on 170 mL over the past 24 hours in the lateral chest tube drained on Lasix he is over the past 24 hours. There is also a left chest superficial wound and dressing was changed by the surgeons today and it was covered by 4 x 4 gauze. The chest tubes are showing intermittent leaking. Based on today's chest x-ray findings, the patient was given a dose of Lasix 20 mg IV push. She was in a positive fluid balance. As mentioned, there is no significant leukocytosis and the white cell count of 12.6. In the liver was stable at 7.2. Function is also stable. The patient utilizing incentive spirometer. Surgical wound site over the left chest areas dry clean and intact. As mentioned earlier, she was found to have an excellent lysis infection of the lung and the patient remains on a combination of Rocephin and Flagyl for now. The patient is seen today 02/07/2020 in follow-up on the selective care unit. Postoperative day #4. She is currently sitting up in a chair at the bedside. Awake and alert in no acute distress. She is maintaining good O2 saturations in the upper 90s on 2 L/m per nasal cannula. Chest x-ray shows a small air-fluid level at the left apex. Continue patchy bilateral infiltrates on the right slightly increased from yesterday. She's been afebrile. Hemodynamically stable. She is status post 3 units of packed red blood cells this admission. Her current hemoglobin is 7.8. Wound culture was positive for Actinomyces odontololyticus. White count 10.7. Hemoglobin 7.8. Tenormin 37. Potassium 3.7. Creatinine 0.84. She is currently on ceftriaxone and Flagyl. Working well with the incentive spirometer. Objective - Vital Signs Vital signs: Vital Signs Temp 97.9 F 02/07/20 08:00 Pulse 78 02/07/20 08:00 Resp 16 02/07/20 08:00 BP 137/63 02/07/20 08:00 Pulse Ox 97 02/07/20 08:00 Intake & Output 02/06/20 02/07/20 02/07/20 18:59 06:59 18:59 Intake Total 650 540 Output Total 610 260 Balance 40 280 Weight 69.6 kg Intake: Intake, IV Titration 50 Amount cefTRIAXone 2 gm In 50 Sodium Chloride 0.9% 50 ml @ 100 mls/hr IVPB Q24HR [facility] Rx#:[id number] Oral 600 540 Output: Chest Tube Drainage 110 130 Chest Tube Left Lateral 50 60 Chest Chest Tube Left Posterior 60 70 Chest Drainage 130 Left Lateral Chest 130 Urine 500 Other: Voiding Method Toilet Toilet Toilet # Voids 1 ABP, PAP, CO, CI - Last Documented Arterial Blood Pressure 170/95 - Exam GENERAL EXAM: Alert, very pleasant 55-year-old female patient, on 2 L/m per nasal cannula, afebrile, fairly comfortable in no apparent distress. HEAD: Normocephalic. EYES: Normal reaction of pupils, equal size. NOSE: Clear with pink turbinates. THROAT: No erythema or exudates. NECK: No masses, no JVD. CHEST: Open left-sided chest wound with significant purulent drainage and blood clots. LUNGS: Lung sounds are essentially bilateral scattered rhonchi, diminished bilateral bases left greater than right. Oxygen saturation is 97% on 2 L nasal cannula. Respirations are symmetrical and nonlabored. Achieving 1000 mL on her incentive spirometry. Left pleural chest tubes in place to low continuous wall suction -20 cm H2O. Intermittent air leak is present with dressing change to her chest tubes. Draining thin serosanguineous drainage with the posterior chest tube CVS: S1 and S2 normal with no audible murmur, regular rhythm. ABDOMEN: No hepatosplenomegaly, normal bowel sounds, no guarding or rigidity. SPINE: No scoliosis or deformity SKIN: No rashes CENTRAL NERVOUS SYSTEM: No focal deficits, tone is normal in all 4 extremities. EXTREMITIES: There is no peripheral edema. No clubbing, no cyanosis. Peripheral pulses are intact. - Labs CBC & Chem 7: 02/07/20 06:46 02/07/20 06:46 Labs: Abnormal Lab Results - Last 24 Hours (Table) 02/06/20 02/06/20 02/07/20 Range/Units 16:39 20:31 05:45 WBC (3.8-10.6) k/uL RBC (3.80-5.40) m/uL Hgb (11.4-16.0) gm/dL Hct (34.0-46.0) % RDW (11.5-15.5) % Plt Count (150-450) k/uL Neutrophils # (1.3-7.7) k/uL Lymphocytes # (1.0-4.8) k/uL Carbon Dioxide (22-30) mmol/L Glucose (74-99) mg/dL POC Glucose (mg/dL) 150 H 173 H 149 H (75-99) mg/dL Calcium (8.4-10.2) mg/dL Total Protein (6.3-8.2) g/dL Albumin (3.5-5.0) g/dL 02/07/20 02/07/20 02/07/20 Range/Units 06:46 06:46 11:45 WBC 10.7 H (3.8-10.6) k/uL RBC 2.98 L (3.80-5.40) m/uL Hgb 7.8 L (11.4-16.0) gm/dL Hct 25.0 L (34.0-46.0) % RDW 16.8 H (11.5-15.5) % Plt Count 668 H (150-450) k/uL Neutrophils # 8.9 H (1.3-7.7) k/uL Lymphocytes # 0.9 L (1.0-4.8) k/uL Carbon Dioxide 21 L (22-30) mmol/L Glucose 139 H (74-99) mg/dL POC Glucose (mg/dL) 152 H (75-99) mg/dL Calcium 8.2 L (8.4-10.2) mg/dL Total Protein 5.9 L (6.3-8.2) g/dL Albumin 2.5 L (3.5-5.0) g/dL Assessment and Plan Assessment: 1 Left lung empyema and the patient is post left upper lobectomy on 12/31/2019 , with cultures indicating actinomyces odontolyticus infection. The patient was taken to the operating room and the patient underwent a left thoracotomy, total left decortication, pectoralis major pedicle flap transposition into the left pleural space in addition to cryoablation of the intercostal nerves. She is postop day #4. The patient remains on a combination of Rocephin and Flagyl per IDs recommendation. Chest tubes are in place. Output from the chest tube has been noted and there be kept in place 524 hours. There is also a wound over the left anterior chest aspect which has been packed with iodoform it was dressed. The wound is also covered. There is limited amount of air leak from the chest tubes. The chest will be kept in place for today. Chest x-ray still showing small air-fluid level at the left apex with adequate positioning of the left- sided chest tubes. Meanwhile, the patient developed some worsening shortness of breath and currently some 2 L of oxygen by nasal cannula. Consider acute lung injury. Consider developing pneumonia. Consider interstitial pneumonia. Increased infiltrates of the right lung. 2 Acute anemia possibly related to blood clot/pooling/hematoma the left chest 3 Recent left upper lobectomy on 12/31/2019 found to be poorly differentiated squamous cell carcinoma 4 Previous chronic tobacco dependence 5 Hypertension 6 Hyperlipidemia 7 Diabetes mellitus, type II 8 History of cervical cancer status post hysterectomy 9 History of anxiety/bipolar disorder Plan: The patient was seen and evaluated by Dr. Luque Chest x-ray and labs reviewed. Remains on Rocephin and Flagyl per ID services Continues to work well with the incentive spirometer Continue to keep the wound clean and dry Increase her activity as tolerated We will continue to follow and make further recommendations based on her clinical status I, the cosigning physician, performed a history & physical examination of the patient. Lungs sounds diminished bilaterally left greater than right with crackl es to scattered rhonchi in the left. Maintaining good O2 saturations in the 90s on 2 L/m per nasal cannula. I discussed the assessment and plan of care with my nurse practitioner, Jazmín Arndt. I attest to the above note as dictated by her.
--- NOTE | 2020-02-07 13:29 | P.PN ---
Subjective Progress Note Date: 02/07/20 Principal diagnosis: Critically 5-year-old female well-known to the practice who underwent left upper lobectomy of the lung 12/31/2019 for poorly differentiated squamous cell carci noma. This is postop day #3 patient underwent left thoracotomy with total lung decortication pectoralis major pedicle flap transposition of the left pleural space cryoablation of the intercostal margin She is awake alert oriented 3 vital signs are stable patient has post operative acute blood loss anemia which was expected patient has no new complaints, has some recent increase in blood pressure hydralazine was increased to 50 mg 4 times daily and patient's Norvasc was increased to 10 mg once daily Norvasc is a long-acting antihypertensive but will take a little bit of time to reach steady state to effectively treat blood pressure 02/07/2020 Patient is awake alert vital signs stable afebrile, currently on hydralazine 50 mg 1 by mouth every 6 hours Norvasc 10 mg 1 pressures today are markedly improved and well-controlled. Patient is in good spirits chest tube still in place Objective - Vital Signs Vital signs: Vital Signs Temp 97.9 F 02/07/20 08:00 Pulse 70 02/07/20 12:17 Resp 16 02/07/20 12:17 BP 113/79 02/07/20 12:17 Pulse Ox 98 02/07/20 12:17 Intake & Output 02/06/20 02/07/20 02/07/20 18:59 06:59 18:59 Intake Total 650 540 50 Output Total 610 260 101 Balance 40 280 -51 Weight 69.6 kg Intake: Intake, IV Titration 50 50 Amount cefTRIAXone 2 gm In 50 50 Sodium Chloride 0.9% 50 ml @ 100 mls/hr IVPB Q24HR [facility] Rx#:[id number] Oral 600 540 Output: Chest Tube Drainage 110 130 100 Chest Tube Left Lateral 50 60 20 Chest Chest Tube Left Posterior 60 70 80 Chest Drainage 130 Left Lateral Chest 130 Urine 500 1 Other: Voiding Method Toilet Toilet Toilet # Voids 1 ABP, PAP, CO, CI - Last Documented Arterial Blood Pressure 170/95 - Exam Ulices in testing negative General: [Patient awake, alert and oriented times 3. Patient in no acute distress. No coug HEENT: [PERRL. EOMI. No pharyngeal erythema or exudate.] Neck: [No adenopathy.] Cardiac: [Heart regular in rate and rhythm. No S3. No S4. No clicks, rubs. No murmur.] Lungs: Breath sounds are absent on the left as expected breath sounds on the right clear Left thoracotomy noted clean and dry chest tube still in place on the left Abdomen: [No mass. No organomegaly. Bowel sounds presnt and normoactive in all 4 quadrants.] Extremes: [No edema no cyanosis no claudication normal pulses] : [] Musculoskeletal: [No joint erythema, edema or tenderness.] Skin: [No rash.] Neurologic: [No lateralizing deficits. CN II - XII grossly intact.] Lymphatic: [No adenopathy.] - Labs CBC & Chem 7: 02/07/20 06:46 02/07/20 06:46 Labs: Abnormal Lab Results - Last 24 Hours (Table) 02/06/20 02/06/20 02/07/20 Range/Units 16:39 20:31 05:45 WBC (3.8-10.6) k/uL RBC (3.80-5.40) m/uL Hgb (11.4-16.0) gm/dL Hct (34.0-46.0) % RDW (11.5-15.5) % Plt Count (150-450) k/uL Neutrophils # (1.3-7.7) k/uL Lymphocytes # (1.0-4.8) k/uL Carbon Dioxide (22-30) mmol/L Glucose (74-99) mg/dL POC Glucose (mg/dL) 150 H 173 H 149 H (75-99) mg/dL Calcium (8.4-10.2) mg/dL Total Protein (6.3-8.2) g/dL Albumin (3.5-5.0) g/dL 02/07/20 02/07/20 02/07/20 Range/Units 06:46 06:46 11:45 WBC 10.7 H (3.8-10.6) k/uL RBC 2.98 L (3.80-5.40) m/uL Hgb 7.8 L (11.4-16.0) gm/dL Hct 25.0 L (34.0-46.0) % RDW 16.8 H (11.5-15.5) % Plt Count 668 H (150-450) k/uL Neutrophils # 8.9 H (1.3-7.7) k/uL Lymphocytes # 0.9 L (1.0-4.8) k/uL Carbon Dioxide 21 L (22-30) mmol/L Glucose 139 H (74-99) mg/dL POC Glucose (mg/dL) 152 H (75-99) mg/dL Calcium 8.2 L (8.4-10.2) mg/dL Total Protein 5.9 L (6.3-8.2) g/dL Albumin 2.5 L (3.5-5.0) g/dL Assessment and Plan (1) S/P pneumonectomy Current Visit: Yes Status: Acute Code(s): Z90.2 - ACQUIRED ABSENCE OF LUNG [PART OF] SNOMED Code(s): 747172326 (2) Cough Current Visit: Yes Status: Acute Code(s): R05 - COUGH SNOMED Code(s): 94651536 (3) Empyema of left pleural space Current Visit: Yes Status: Acute Code(s): J86.9 - PYOTHORAX WITHOUT FISTULA SNOMED Code(s): 74319726 (4) Hydropneumothorax Current Visit: Yes Status: Acute Priority: High Code(s): J94.8 - OTHER SPECIFIED PLEURAL CONDITIONS SNOMED Code(s): 98131893 (5) Hypokalemia Current Visit: Yes Status: Acute Priority: High Code(s): E87.6 - HYPOKALEMIA SNOMED Code(s): 94000857 (6) Hyponatremia Current Visit: Yes Status: Acute Priority: Medium Code(s): E87.1 - HYPO- OSMOLALITY AND HYPONATREMIA SNOMED Code(s): 51043447 (7) COPD (chronic obstructive pulmonary disease) Current Visit: Yes Status: Chronic Priority: Medium Code(s): J44.9 - CHRONIC OBSTRUCTIVE PULMONARY DISEASE, UNSPECIFIED SNOMED Code(s): 70885271 (8) S/P lobectomy of lung Current Visit: Yes Status: Chronic Priority: Low Code(s): Z90.2 - ACQUIRED ABSENCE OF LUNG [PART OF] SNOMED Code(s): 41963114092181966 (9) Adenocarcinoma of lung Current Visit: No Status: Chronic Priority: Medium Code(s): C34.90 - MALIGNANT NEOPLASM OF UNSP PART OF UNSP BRONCHUS OR LUNG SNOMED Code(s): 073208607 (10) Essential (primary) hypertension Current Visit: No Status: Chronic Priority: Medium Code(s): I10 - ESSENTIAL (PRIMARY) HYPERTENSION SNOMED Code(s): 92686797 (11) Major depressive disorder, recurrent, moderate Current Visit: No Status: Chronic Priority: Medium Code(s): F33.1 - MAJOR DEPRESSIVE DISORDER, RECURRENT, MODERATE SNOMED Code(s): 180175964 (12) Type 2 diabetes mellitus without complications Current Visit: No Status: Chronic Priority: Medium Code(s): E11.9 - TYPE 2 DIABETES MELLITUS WITHOUT COMPLICATIONS SNOMED Code(s): 314602894 Plan: #1 left pleural chest tube to low continuous suction per cardiovascular thoracic surgery #2 superficial wound culture from 417 positive for actinomyces currently on Rocephin and Flagyl currently managed by ID #3 history of poorly differentiated squamous cell carcinoma status post left upper lobectomy 12/31/2019 #4 history of hypertension, currently controlled on hydralazine 50 mg 4 times daily recently started on Norvasc 10 mg daily #4 hyperlipidemia by history #5 previous tobacco dependence #6 type 2 diabetes well-controlled with no complications at this time #7 history of cervical cancer status post total hysterectomy #8 history of anxiety bipolar disorder #9 postop acute blood loss anemia as expected Plan #1 hypertensive control #2 encourage incentive spirometry 10 times an hour while awake #3 continue to encourage smoking cessation #4 hold Apixiban for now #5 is eating changes as ordered #6 encourage oral fluid intake #7 waiting on final Gram stain from or #8 GI and DVT prophylaxis #9 and decreased activity as tolerated physical therapy up in chair for meals #10 diuresis as scheduled #11 start iron sulfate 325 mg by mouth daily at lunch vitamin C by mouth daily #12 continue to monitor daily labs and chest x-rays replace potassium and m agnesium as recommended #13 will continue to follow closely Time with Patient: Greater than 30
[2020-02-07 16:24] LABS: Glucose,Whole Blood 145 mg/dL (75-99)
[2020-02-07 20:23] LABS: Glucose,Whole Blood 153 mg/dL (75-99)
[2020-02-07] MEDS ORDERED: IBUPROFEN 400 MG TAB PO STA (21:32)
[2020-02-07] MEDS: SENNOSIDES-DOCUSATE SODIUM 1 EACH TAB PO SCH (21:41)
[2020-02-08] MEDS: HEPARIN SODIUM,PORCINE 5,000 UNIT/ML 1 ML VIAL SQ SCH ×4 (00:04→23:19)
--- NOTE | 2020-02-08 00:42 | PN ---
PROGRESS NOTE DATE OF SERVICE: 02/07/2020 REASON FOR FOLLOWUP: Empyema. INTERVAL HISTORY: The patient is currently afebrile. She is feeling more short of breath today. She did have a cough with occasional sputum. No chest pain. No nausea, vomiting, abdominal pain or diarrhea. PHYSICAL EXAMINATION: Blood pressure 160/75 with pulse of 76, temperature is 97.8. She is 97% on 2 L nasal cannula. General description is a middle-aged female up in the chair in no distress. RESPIRATORY SYSTEM: Unlabored breathing. Decreased breath sounds at the bases. No wheeze. HEART: S1, S2. Regular rate and rhythm. ABDOMEN: Soft, no tenderness. LABS: Hemoglobin 7.8, white count 10.7, BUN of 15, creatinine 0.84. Culture pending. DIAGNOSTIC IMPRESSION AND PLAN: Patient with left-sided empyema in this patient who is status post left thoracotomy and chest tube placement. Cultures currently pending. Initial culture positive for Actinomyces. Patient is covered with Rocephin and Flagyl. We will get a PICC line for outpatient antibiotics and monitor clinical course closely. MMODL / IJN: [id number] /
[2020-02-08] MEDS: ALBUTEROL NEBULIZED 2.5 MG/3 ML INHALATION PRN ×4 (06:02→23:21)
[2020-02-08 06:41] LABS: Glucose,Whole Blood 154 mg/dL (75-99)
[2020-02-08] MEDS: INSULIN ASPART (NovoLOG) 100 UNIT/ML VIAL SQ SCH ×4 (06:49→21:38)
[2020-02-08] MEDS: metFORMIN 500 MG TAB PO SCH ×2 (06:51→17:27)
[2020-02-08] MEDS: PANTOPRAZOLE 40 MG TABLET PO SCH (06:51)
--- NOTE | 2020-02-08 08:36 | XR ---
EXAMINATION TYPE: XR chest 1V portable DATE OF EXAM: 02/08/2020 COMPARISON: 02/07/2020 HISTORY: Postoperative left thoracotomy with decortication. TECHNIQUE: Single frontal view of the chest is obtained. FINDINGS: Multiple left-sided thoracostomy tubes are in position with mediastinal drain in place. Th martha are similar to 02/07/2020. Mediastinal clips are also noted with few clips in the left lung apex. There is improved aeration of remaining portions of the left lung in comparison to the prior although near complete opacification of the left hemithorax is again seen. Slight worsening of the multifocal alveolar right midlung and right lung base opacities. Cardiomediastinal silhouette is largely obscur ed. IMPRESSION: 1. Worsening multifocal alveolar right-sided airspace disease and may represent confluent edema or pn eumonia. 2. Few areas of improved aeration in the left lung with postsurgical change of left thoracotomy and d ecortication. Multiple left-sided thoracostomy tubes and mediastinal drain are similar in position to the prior.
[2020-02-08 08:46] LABS: African American GFR (CKD) >90 (>60 ml/min/1.73 sqM); Anion Gap 9 mmol/L; Blood Urea Nitrogen 12 mg/dL (7-17); Calcium 8.4 mg/dL (8.4-10.2); Carbon Dioxide 24 mmol/L (22-30); Chloride 104 mmol/L (98-107); Glucose 157 mg/dL (74-99); Magnesium 1.8 mg/dL (1.6-2.3); Non-African American GFR(CKD) 83 (>60 ml/min/1.73 sqM); Potassium 4.2 mmol/L (3.5-5.1); Sodium 137 mmol/L (137-145)
[2020-02-08 08:50] LABS: Anisocytosis Slight; Basophils % (A) 0 %; Eosinophils # (A) 0.1 k/uL (0-0.7); Eosinophils % (A) 1 %; HCT 25.7 % (34.0-46.0); Hypochromasia Marked; Lymphocytes # (A) 0.9 k/uL (1.0-4.8); Lymphocytes % (A) 9 %; MCH 26.7 pg (25.0-35.0); MCHC 31.3 g/dL (31.0-37.0); MCV 85.5 fL (80.0-100.0); Mean Platelet Volume 6.9; Monocytes # (A) 0.4 k/uL (0-1.0); Monocytes % (A) 4 %; Neutrophils # (A) 8.7 k/uL (1.3-7.7); Neutrophils % (A) 84 %; Platelet Count 778 k/uL (150-450); Poikilocytosis Slight; RDW 16.4 % (11.5-15.5); WBC 10.4 k/uL (3.8-10.6)
[2020-02-08] MEDS: metroNIDAZOLE 500 MG TAB PO SCH ×3 (09:53→21:37)
[2020-02-08] MEDS: traMADol 50 MG TAB PO SCH ×3 (09:53→21:37)
[2020-02-08] MEDS: MAGNESIUM OXIDE 400 MG TAB PO SCH ×2 (09:54→21:38)
[2020-02-08] MEDS: hydrALAZINE HCL 50 MG TAB PO SCH ×4 (09:54→21:38)
[2020-02-08] MEDS: VALSARTAN 160 MG TAB PO SCH (09:55)
[2020-02-08] MEDS: DULoxetine HCL 60 MG CAPSULE.DR PO SCH (09:55)
[2020-02-08] MEDS: AMIODARONE 200 MG TAB PO SCH (09:55)
[2020-02-08] MEDS: amLODIPine 10 MG TAB PO SCH (09:55)
[2020-02-08] MEDS: BISOPROLOL 5 MG TAB PO SCH (09:55)
[2020-02-08] MEDS: ASCORBIC ACID 500 MG TAB PO SCH (09:55)
[2020-02-08 10:10] LABS: INR 1.1 (<1.2)
[2020-02-08 11:36] LABS: Glucose,Whole Blood 222 mg/dL (75-99)
[2020-02-08] MEDS ORDERED: LEVOFLOXACIN 750 MG TAB PO STA (12:06)
--- NOTE | 2020-02-08 12:18 | P.PN ---
Subjective Progress Note Date: 02/08/20 Principal diagnosis: Draining of a left-sided chest superficial wound with foul-smelling yellowish fluid returned. Previous left upper lobectomy on 12/31/2019 This is a 55-year-old female patient who follows with Dr. Leroy on an outpatient basis. She has a past medical history of poorly differentiated squamous cell carcinoma, status post left upper lobectomy on 12/31/2019, hypertension, hyperlipidemia, chronic tobacco abuse, type 2 diabetes mellitus, cervical cancer status post hysterectomy, anxiety and bipolar disorder. On 01/28/2020 she had a follow-up visit with Dr. Teddy Wilkins for her pathology results of her recent left upper lobectomy. Upon exam of her surgical incisions there was a fluctuant area which was painful to touch on her left chest. Subsequently she was started on oral Keflex. Yesterday morning she developed some drainage from that incision site with the fluctuant area, leaking foul smelling yellowish fluid. Her initial lab results showed a WBC count 12.0, Hgb 8.3, neutrophils 59%, positive band neutrophil percent 24 and neutrophil numbers 9.0. A chest x-ray was completed which demonstrated a normal and the left hydropneumothorax, with no significant interval changes. She was admitted to observation to determine further treatment plans and surgical incision with consultation placed to Dr. Teddy Wilkins. On 01/30/2020 the patient was seen on the fourth floor medical surgical unit on follow-up. She is resting comfortably in bed, is in no acute distress and denies any complaints of shortness of breath. The patient does report she is having some intermittent pain to her left chest where her incision is draining. She does have a dressing which is clean and intact to her left chest which continues to drain thick foul-smelling yellowish colored drainage. Her Gram stain yesterday shows many gram-positive bacilli and she remains on Keflex for antibiotic treatment. She is hemodynamically stable, remains afebrile, although this morning her blood pressure is 176/71. Oxygen saturations are 96% on room air. Culture results from her surgical site to her left chest remains pending. The patient is seen today 01/31/2020 in follow-up on the regular medical floor. She is a resting comfortably in bed. Awake and alert in no acute distress. She denies any worsening shortness of breath. She has a dry cough. She states when she coughs she does feel like air escapes from her left chest wound. The wound continues to drain purulent drainage. There is also noted blood clots. She is maintaining O2 saturation in the 90s on room air. She's currently afebrile. Wound cultures revealing gram-positive bacilli. White count 5.8. Hemoglobin 6.9. Platelet count 1044. Sodium 133. Potassium 4.2. Creatinine 0.41. She's been initiated on vancomycin and meropenem. Anticoagulated with Eliquis. Currently in sinus rhythm. On today's evaluation of 02/03/2020, the patient is laying comfortably in bed. No signs of any significant respiratory distress pH is still draining purulent stuff from the left chest area and the dressing is stuffed and soaked. The culture is positive for gram possible solicitous and the patient remains on vancomycin. She is also on IV Merrem. She is hemodynamically stable. She is off the Eliquis in preparation for surgical thoracoscopic evaluation for empyema. The white cell count is at 4.6. Hemoglobin stable at 8.2. She is in a sinus rhythm. She did have a bout of proximal atrial fibrillation following her lung surgery and she's been in sinus since. No altered mentation. No other significant events overnight. On 02/04/2020 on seeing this patient in follow-up in the intensive care unit. Noted the patient was taken for thoracotomy yesterday regarding the empyema. The surgery was done successfully. Estimated blood loss was 300 mL. The patient underwent a left thoracotomy and total lung decortication in addition to a pectoralis major pedicle flap transposition into the left pleural space. The patient underwent also cryoablation of the intercostal nerves. A total of 3 chest tubes were placed into the left hemithorax and the patient was following that extubated and sent to the intensive care unit. Overnight she did extremely well. She remained hemodynamically stable. This morning the patient is on room air oxygen and she is sitting up on a chair. She was provided incentive spirometer. Her pulse ox is 96%. She is to the off anticoagulation. 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 For now the current antibiotic coverage is a combination of Merrem and vancomycin. The patient postop required IV fluid resuscitation. She received a total of 2 of 250 mL of 5% albumin and unit of packed RBC which helped her overall hemodynamics. There chest tubes on the left have drained 500 mL in the anterior tubes and 130s disease in the posterior 2. The white cell count at 13.9. Hemoglobin is at 7.9. Creatinine is at 1.36. The chest x-ray shows that the tu bes are in place and the patient has significant opacification of left hemithorax and also there is evidence of some improving subcu his emphysema. The patient has a Nolasco catheter in place. The patient is awake and alert and she denies having any specific complaints for now. On 02/05/2020, the patient is being seen in follow-up in the intensive care unit. The patient is postop day #2. She is doing well. She is able to stop on a chair. No fever or chills. As mentioned earlier the patient was found to be a Actinomyces infection in the left pleural space and the patient is currently on IV Rocephin and Flagyl. The patient is ALLERGIC to penicillin this medication was not provided to her. She developed an extensive rash to that. She also is receiving wound care and the patient has a superficial left chest wound was packed with iodoform gauze by the surgical team this morning. The patient also has a total of 3 chest tubes in her left pleural space. The chest tubes are attached to continuous wall suction and there is some intermittent leak and the posterior chest tubes. Output from the chest tube has been serosanguineous in order of 80 mL in the anterior chest tube and 280 mL over the past 24 hours. Output from the posterior chest tubes has been 200 mL over the past 24 hours. The patient is afebrile. The patient using incentive spirometer. Denies having any chest pain. No altered mentation. No other significant events otherwise over the past 24 hours. Her cardiac rhythm remains sinus. On 02/06/2020, the patient remains in the intensive care unit. She is feeling slightly more short of breath and she is postop day #3. On today's chest x-ray, there is development of some vague interstitial infiltrates in the right lung and this was quite concerning. Currently she is on 2 L about oxygen by nasal cannula. She admits that her breathing is slightly worse compared to yesterday. She is afebrile. No significant leukocytosis. As for the left lung findings, the patient continues to have chest tubes in place, to posterior and one lateral chest tube. Note that the drainage from the chest is a been serosanguineous and the posterior chest tube and drained on 170 mL over the past 24 hours in the lateral chest tube drained on Lasix he is over the past 24 hours. There is also a left chest superficial wound and dressing was changed by the surgeons today and it was covered by 4 x 4 gauze. The chest tubes are showing intermittent leaking. Based on today's chest x-ray findings, the patient was given a dose of Lasix 20 mg IV push. She was in a positive fluid balance. As mentioned, there is no significant leukocytosis and the white cell count of 12.6. In the liver was stable at 7.2. Function is also stable. The patient utilizing incentive spirometer. Surgical wound site over the left chest areas dry clean and intact. As mentioned earlier, she was found to have an excellent lysis infection of the lung and the patient remains on a combination of Rocephin and Flagyl for now. The patient is seen today 02/07/2020 in follow-up on the selective care unit. Postoperative day #4. She is currently sitting up in a chair at the bedside. Awake and alert in no acute distress. She is maintaining good O2 saturations in the upper 90s on 2 L/m per nasal cannula. Chest x-ray shows a small air-fluid level at the left apex. Continue patchy bilateral infiltrates on the right slightly increased from yesterday. She's been afebrile. Hemodynamically stable. She is status post 3 units of packed red blood cells this admission. Her current hemoglobin is 7.8. Wound culture was positive for Actinomyces odontololyticus. White count 10.7. Hemoglobin 7.8. Ten[place]in 37. Potassium 3.7. Creatinine 0.84. She is currently on ceftriaxone and Flagyl. Working well with the incentive spirometer. The patient is seen today 02/08/2020 in follow-up on the selective care unit. She is currently sitting up in a chair at the bedside. Awake and alert in no acute distress. Still having some discomfort at the chest tube insertion sites on the left chest. She is maintaining good O2 saturations in the 90s on room air. She has remained afebrile. She is status post 3 units of packed red blood cells this admission. Current hemoglobin 8.0. Wound cultures were positive for Actinomyces odontolyticus. White count 10.4. Platelets 778. Sodium 137. Potassium 4.2. Bicarb 24. Creatinine 0.80. Glucose 157. She remains on ceftriaxone and Flagyl. Today's chest x-ray shows worsening multifocal alveolar right-sided airspace disease representing either confluent edema or pneumonia. There is few areas of improved aeration in the left lung with postsurgical changes of left thoracotomy and decortication. The left-sided thoracostomy tubes and mediastinal drain remain in place. Plan is for PICC line placement today. Objective - Vital Signs Vital signs: Vital Signs Temp 97.9 F 02/08/20 04:00 Pulse 79 02/08/20 08:00 Resp 17 02/08/20 08:00 BP 142/76 02/08/20 08:00 Pulse Ox 97 02/08/20 04:00 Intake & Output 02/07/20 02/08/20 02/08/20 18:59 06:59 18:59 Intake Total 290 240 Output Total 111 70 Balance 179 -70 240 Weight 69 kg Intake: Intake, IV Titration 50 Amount cefTRIAXone 2 gm In 50 Sodium Chloride 0.9% 50 ml @ 100 mls/hr IVPB Q24HR [facility] Rx#:[id number] Oral 240 240 Output: Chest Tube Drainage 110 70 Chest Tube Left Lateral 20 30 Chest Chest Tube Left Posterior 90 40 Chest Urine 1 Other: Voiding Method Toilet Toilet # Voids 1 1 ABP, PAP, CO, CI - Last Documented Arterial Blood Pressure 170/95 - Exam GENERAL EXAM: Alert, very pleasant 55-year-old female patient, on 2 L/m per nasal cannula, afebrile, fairly comfortable in no apparent distress. HEAD: Normocephalic. EYES: Normal reaction of pupils, equal size. NOSE: Clear with pink turbinates. THROAT: No erythema or exudates. NECK: No masses, no JVD. CHEST: Open left-sided chest wound with significant purulent drainage and blood clots. LUNGS: Lung sounds are essentially bilateral scattered rhonchi, diminished bilateral bases left greater than right. Oxygen saturation is 97% on 2 L nasal cannula. Respirations are symmetrical and nonlabored. Achieving 1000 mL on her incentive spirometry. Left pleural chest tubes in place to low continuous wall suction -20 cm H2O. Intermittent air leak is present with dressing change to her chest tubes. Draining thin serosanguineous drainage with the posterior chest tube CVS: S1 and S2 normal with no audible murmur, regular rhythm. ABDOMEN: No hepatosplenomegaly, normal bowel sounds, no guarding or rigidity. SPINE: No scoliosis or deformity SKIN: No rashes CENTRAL NERVOUS SYSTEM: No focal deficits, tone is normal in all 4 extremities. EXTREMITIES: There is no peripheral edema. No clubbing, no cyanosis. Peripheral pulses are intact. - Labs CBC & Chem 7: 02/08/20 08:12 02/08/20 08:12 Labs: Abnormal Lab Results - Last 24 Hours (Table) 02/07/20 02/07/20 02/08/20 Range/Units 16:19 20:19 06:37 RBC (3.80-5.40) m/uL Hgb (11.4-16.0) gm/dL Hct (34.0-46.0) % RDW (11.5-15.5) % Plt Count (150-450) k/uL Neutrophils # (1.3-7.7) k/uL Lymphocytes # (1.0-4.8) k/uL Glucose (74-99) mg/dL POC Glucose (mg/dL) 145 H 153 H 154 H (75-99) mg/dL 02/08/20 02/08/20 02/08/20 Range/Units 08:12 08:12 11:36 RBC 3.00 L (3.80-5.40) m/uL Hgb 8.0 L (11.4-16.0) gm/dL Hct 25.7 L (34.0-46.0) % RDW 16.4 H (11.5-15.5) % Plt Count 778 H (150-450) k/uL Neutrophils # 8.7 H (1.3-7.7) k/uL Lymphocytes # 0.9 L (1.0-4.8) k/uL Glucose 157 H (74-99) mg/dL POC Glucose (mg/dL) 222 H (75-99) mg/dL Microbiology - Last 24 Hours (Table) 02/03/20 15:46 Gram Stain - Final Other - Other Wound Culture - Final Actinomyces odontolyticus 02/03/20 15:46 Anaerobic Culture - Final Other - Other Assessment and Plan Assessment: 1 Left lung empyema and the patient is post left upper lobectomy on 12/31/2019 , with cultures indicating actinomyces odontolyticus infection. The patient was taken to the operating room and the patient underwent a left thoracotomy, total left decortication, pectoralis major pedicle flap transposition into the left pleural space in addition to cryoablation of the intercostal nerves. She is postop day #4. The patient remains on a combination of Rocephin and Flagyl per IDs recommendation. Chest tubes are in place. Output from the chest tube has been noted and there be kept in place 524 hours. There is also a wound over the left anterior chest aspect which has been packed with iodoform it was dressed. The wound is also covered. There is limited amount of air leak from the chest tubes. The chest tubes will be kept in place for today. Chest x-ray still showing small air-fluid level at the left apex with adequate positioning of the left-sided chest tubes. Meanwhile, the patient developed some worsening shortness of breath and currently some 2 L of oxygen by nasal cannula. Consider acute lung injury. Consider developing pneumonia. Consider interstitial pneumonia. Increased infiltrates of the right lung. 2 Acute anemia possibly related to blood clot/pooling/hematoma the left chest 3 Recent left upper lobectomy on 12/31/2019 found to be poorly differentiated s quamous cell carcinoma 4 Previous chronic tobacco dependence 5 Hypertension 6 Hyperlipidemia 7 Diabetes mellitus, type II 8 History of cervical cancer status post hysterectomy 9 History of anxiety/bipolar disorder Plan: The patient was seen and evaluated by Dr. Arredondo Chest x-ray and labs reviewed. Remains on Rocephin and Flagyl per ID services Continues to work well with the incentive spirometer Continue to keep the wound clean and dry Plan is for PICC line placement today Increase her activity as tolerated We will continue to follow and make further recommendations based on her cli nical status I, the cosigning physician, performed a history & physical examination of the patient. Lungs sounds diminished bilaterally left greater than right with crackles to scattered rhonchi in the left. Maintaining good O2 saturations in the 90s on 2 L/m per nasal cannula. I discussed the assessment and plan of care with my nurse practitioner, Jazmín Arndt. I attest to the above note as dictated by her.
--- NOTE | 2020-02-08 12:29 | XR ---
EXAMINATION TYPE: XR chest 1V portable DATE OF EXAM: 02/08/2020 Comparison: 02/08/2020 Clinical History: 55-year-old female with respiratory distress Findings: There are 3 left-sided chest tubes present. Similar patches of aerated lung in the left hemithorax an d continued volume loss on the left. Progressively more confluent airspace opacity on the right. Impression: 1. Stable appearance to left hemithorax with 3 chest tubes and only very small portions of aerated karen ng on the left. 2. Progressively more confluent airspace disease throughout the right lung.
[2020-02-08] MEDS ORDERED: FUROSEMIDE 10 MG/ML 4 ML VIAL IV STA (12:51)
[2020-02-08] MEDS ORDERED: VANCOMYCIN IV PER PHARMACY 1 EACH MISC MISCELLANE PRN (13:18)
[2020-02-08] MEDS ORDERED: FUROSEMIDE 40 MG TAB PO STA (13:50)
[2020-02-08] MEDS: FERROUS SULFATE 325 MG TAB PO SCH (13:56)
[2020-02-08] MEDS ORDERED: VANCOMYCIN 1,250 MG in SODIUM CHLORIDE 0.9% 250 ML IVPB ONE (14:00)
--- NOTE | 2020-02-08 15:52 | P.PN ---
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 Patient had seen cardiothoracic surgeon Dr. Wilkins yesterday, started on oral Keflex. Afebrile, WBC12, vital signs stable. Hemoglobin 8.3, sodium 131, potassium 3.1, magnesium 1.5. Alkaline phosphatase mildly elevated 134. Chest x-ray reporting known left hydropneumothorax, trachea midline, right lung clear. EKG reporting normal sinus rhythm, lateral infarct, age undet ermined. Troponin negative 1. Denies chest pain, palpitations or shortness of breath. Denies lightheadedness, dizziness or focal deficits. 01/30/2020: The patient was not discharged last night as a potassium of return to normal. She does have a small leukocytosis which may be consistent with her recent surgeries and lung cancer, however a repeat is pending for this morning. I discussed the case currently with thoracic surgery and they felt that because of the white count, Keflex and discharged to be held. We discussed pulmonology consult which was done. That is in progress and they had ordered a CT chest showing an air-fluid level and dense consolidation remainder of the lung left lo be after left upper lobectomy. The margins suggested infection. Currently she's been placed on meropenem. Her wound continues to drain. Cultures are pending, but currently show no growth. He denies any significant chest pains, pressures, or shortness of breath this time. She denies any nausea or vomiting. She reports her appetite is little bit improved. She had not been eating well recently due to her cancer and treatment. Potassium this morning is 3.2. 01/31/2020: Her case was discussed with vascular surgery, they will plan a a large debridement of her chest wound in the next 48 hours. She remains on amiodarone and Elequis for anticoagulation due to atrial fibrillation. She continues on meropenem and vancomycin for her Lung empyema after robotically assisted left upper lobectomy for squamous cell carcinoma. He remains on bisoprolol for blood pressure control, but it remains somewhat elevated. Hemoglobin is dropped from 8.3 down to 6.4. A stat repeat is now 6.9. Her plat elets continue to be elevated, most likely reactive, now 1044. She remains hyponatremic at 133. She denies any significant chest pains, pressures, or shortness of breath other than with exertion. She denies any significant nausea or vomiting. Staff reports she is complaining some vaginal itching and irritation. Potassium is now up to 4.2 today. 02/01/2020 Wound cultures reporting gram-positive bacilli isolated. Maintained on vancomycin, Merrem. Continues having purulent drainage from lateral left chest incision site. Tested negative for coronavirus. Afebrile, WBC WNL. Hemoglobin 8.2. Telemetry sinus rhythm. Denies chest pain, palpitations. 02/02/2020 received Eliquis yesterday, surgery, rescheduled for tomorrow for 02/03/20. Hypertensive, hydralazine initiated yesterday. Drainage continues. Afebrile, WBC within normal limits. Maintaining O2 sats in the 90s on room air. Hemoglobin 10.1. 02/03/2020 NPO, Eliquis remains on hold. OR pending. Hypertensive. Hemoglobin 8.8. Continues maintaining O2 sats in the mid 90s on room air. Afebrile, WBC WNL. 02/04/2020 yesterday underwent left thoracotomey. total lung decortication, pectoralis major pedicle flap transposition into the left pleural space, cryoablation of the intercostal nerves, with placement of 3 left pleural chest tubes,tolerated procedure well. Left pleural chest tube insertion sites discomfort. Maintaining O2 sats in the 90s on room air. Incentive spirometer up to 1000. Maintained on vancomycin, Merrem Chest x-ray reporting surgical changes, chest tubes, complete opacified left hemothorax with mediastinal shift, improving subcutaneous emphysema. Eliquis remains on hold. Wound culture rep orting gram-positive bacilli. Telemetry sinus bradycardia. Hemoglobin 7.9, received 1 unit postop of packed RBCs in addition to IV fluid resuscitation, albumin. Borderline hypotension with systolic blood pressures in the low 90s, MAP 61. 02/05/2020 evaluated by infectious disease with antibiotics adjusted. Currently maintained on Rocephin and Flagyl. Renal function improving, creatinine down to 1.27. Hemoglobin down to 7,(EBL 300 of recent surgery) Maintaining O2 sats in the 90s on room air. Chest x-ray reporting 3 left-sided chest tubes, some subcutaneous emphysema along the left hemothorax, some increasing patchy opacity in the periphery of the right mid and lower lung, continued complete whiteout of the left hemithorax. Sodium 132. Yesterday hypotensive, requiring albumin, antihypertensives held. Currently systolic blood pressure in the 130s reported per staff without antihypertensives on board. 02/08/2020 maintaining O2 sats in the 90s on room air. Hemoglobin 8. M aintained on Rocephin and Flagyl . Chest x-ray reporting worsening multifocal alveolar right-sided airspace disease, confluent .Wound cultures positive for Actinomyces odontolyticus. Scheduled for PICC line placement today. Complains of left chest tubes insertion sites discomfort. Objective - Vital Signs Vital signs: Vital Signs Temp 97.9 F 02/08/20 04:00 Pulse 79 02/08/20 08:00 Resp 17 02/08/20 08:00 BP 142/76 02/08/20 08:00 Pulse Ox 97 02/08/20 04:00 Intake & Output 02/07/20 02/08/20 02/08/20 18:59 06:59 18:59 Intake Total 290 240 Output Total 111 70 Balance 179 -70 240 Weight 69 kg Intake: Intake, IV Titration 50 Amount cefTRIAXone 2 gm In 50 Sodium Chloride 0.9% 50 ml @ 100 mls/hr IVPB Q24HR [facility] Rx#:[id number] Oral 240 240 Output: Chest Tube Drainage 110 70 Chest Tube Left Lateral 20 30 Chest Chest Tube Left Posterior 90 40 Chest Urine 1 Other: Voiding Method Toilet Toilet # Voids 1 1 ABP, PAP, CO, CI - Last Documented Arterial Blood Pressure 170/95 - Exam GENERAL: Sitting up in chair, no acute distress NECK: No JVD. No thyroid enlargement. No LNs CARDIOVASCULAR: S1, S2 regular. No murmur RESPIRATION: Nonlabored. Breath sounds diminished. Occasional scattered fine crackles. Left pleural chest tubes 3 with serosanguineous drainage.Left lateral dressing clean dry and intact. ABDOMEN: Soft, nontender . No guarding. no masses palpable. Positive Bowel sounds. LEGS: No edema. no swelling. No clubbing, no cyanosis PSYCHIATRY: Alert and oriented X3, mood and affect normal. NERVOUS SYSTEM: Cranial N 2-12 grossly normal. Moves all 4 limbs. No focal deficits. Strength and sensation grossly intact. Skin: no rashes. Microbiology 02/03/20 15:46 Other - Other Gram Stain - Final 02/03/20 15:46 Other - Other Wound Culture - Final Actinomyces odontolyticus 02/03/20 15:46 Other - Other Anaerobic Culture - Final 01/29/20 09:00 Chest Gram Stain - Final 01/29/20 09:00 Chest Wound Culture - Final Actinomyces odontolyticus - Labs CBC & Chem 7: 02/08/20 08:12 02/08/20 08:12 Labs: Abnormal Lab Results - Last 24 Hours (Table) 02/07/20 02/07/20 02/07/20 Range/Units 11:45 16:19 20:19 RBC (3.80-5.40) m/uL Hgb (11.4-16.0) gm/dL Hct (34.0-46.0) % RDW (11.5-15.5) % Plt Count (150-450) k/uL Neutrophils # (1.3-7.7) k/uL Lymphocytes # (1.0-4.8) k/uL Glucose (74-99) mg/dL POC Glucose (mg/dL) 152 H 145 H 153 H (75-99) mg/dL 02/08/20 02/08/20 02/08/20 Range/Units 06:37 08:12 08:12 RBC 3.00 L (3.80-5.40) m/uL Hgb 8.0 L (11.4-16.0) gm/dL Hct 25.7 L (34.0-46.0) % RDW 16.4 H (11.5-15.5) % Plt Count 778 H (150-450) k/uL Neutrophils # 8.7 H (1.3-7.7) k/uL Lymphocytes # 0.9 L (1.0-4.8) k/uL Glucose 157 H (74-99) mg/dL POC Glucose (mg/dL) 154 H (75-99) mg/dL Microbiology - Last 24 Hours (Table) 02/03/20 15:46 Gram Stain - Final Other - Other Wound Culture - Final Actinomyces odontolyticus 02/03/20 15:46 Anaerobic Culture - Final Other - Other Assessment and Plan Assessment: (1) left Hydropneumothorax, empyema of the left pleural space ,status post left thoracotomy. total lung decortication, pectoralis major pedicle flap transposition into the left pleural space, cryoablation of the intercostal nerves.Cultures reporting actinomyces. Current Visit: Yes Status: Acute Priority: High Code(s): J94.8 - OTHER SPECIFIED PLEURAL CONDITIONS SNOMED Code(s): 85519862 (2) Cavitary lesion of lung Current Visit: No Status: Acute Priority: High Code(s): J98.4 - OTHER DISORDERS OF LUNG SNOMED Code(s): 993199691 (3) Hypokalemia, currently resolved Current Visit: Yes Status: Acute Priority: High Code(s): E87.6 - HYP OKALEMIA SNOMED Code(s)15530236 (4) Acute post op blood loss anemia , expected, status post transfusion and packed RBCs Current Visit: Yes Status: Chronic Priority: Medium Code(s): D50.9 - IRON DEFICIENCY ANEMIA, UNSPECIFIED SNOMED Code(s): 731735907 (5)Poorly differentiated squamous cell CA, left upper lobe Current Visit: Yes Status: Acute Code(s): C34.90 - MALIGNANT NEOPLASM OF UNSP PART OF UNSP BRONCHUS OR LUNG SNOMED Code(s): 021723278 (6) S/P lobectomy of lung with draining from prior recent left upper lobectomy incisional site, cultures reporting actinomyces Current Visit: Yes Status: Chronic Priority: Low Code(s): Z90.2 - ACQUIRED ABSENCE OF LUNG [PART OF] SNOMED Code(s): 82930880842394006 (7) Essential (primary) hypertension Current Visit: No Status: Acute Code(s): I10 - ESSENTIAL (PRIMARY) HYPERTENSION SNOMED Code(s): 70083800 (8) Hyponatremia Current Visit: Yes Status: Acute Code(s): E87.1 - HYPO-OSMOLALITY AND HYPONATREMIA SNOMED Code(s): 41639458 (9)Major depressive disorder, recurrent, moderate Current Visit: No Status: Acute Code(s): F33.1 - MAJOR DEPRESSIVE DISORDER, RECURRENT, MODERATE SNOMED Code(s): 191872917 (10)Type 2 diabetes mellitus without complications Current Visit: No Status: Acute Code(s): E11.9 - TYPE 2 DIABETES MELLITUS WITHOUT COMPLICATIONS SNOMED Code(s): 014217488 (11) Fibromyalgia Current Visit: Yes Status: Acute Code(s): M79.7 - FIBROMYALGIA SNOMED Code(s): 384243046 (12) hypomagnesemia (13)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 Maintained on IV antibiotics of Rocephin and Flagyl as per infectious disease. PICC line placement pending. Antihypertensives recently adjusted, Close monitoring of blood pressure. Pain management. Aggressive pulmonary toileting with incentive spirometer reinforced . Smoking cessation reinforced. The impression and plan of care has been dictated as directed. : I performed a history and examination of this patient, discussed the same with the dictator. I agree with the dictator's note ,documented as a scribe. Any additional findings or plans will be noted.
[2020-02-08 16:26] LABS: Glucose,Whole Blood 146 mg/dL (75-99)
--- NOTE | 2020-02-08 16:34 | P.PN ---
Subjective Progress Note Date: 02/08/20 Principal diagnosis: This is a 55-year-old female patient who follows with Dr. Leroy on an outpatient basis. She has a past medical history of poorly differentiated squamous cell carcinoma, status post left upper lobectomy on 12/31/2019, hypertension, hyperlipidemia, chronic tobacco abuse, type 2 diabetes mellitus, cervical cancer status post hysterectomy, anxiety and bipolar disorder. On 01/28/2020 she had a follow-up visit with Dr. Teddy Wilkins for her pathology results of her recent left upper lobectomy. Upon exam of her surgical incisions there was a fluctuant area which was painful to touch on her left chest. Subsequently she was started on oral Keflex. Yesterday morning she developed some drainage from that incision site with the fluctuant area, leaking foul smelling yellowish fluid. Her initial lab results showed a WBC count 12.0, Hgb 8.3, neutrophils 59%, positive band neutrophil percent 24 and neutrophil numbers 9.0. A chest x-ray was completed which demonstrated a normal and the left hydropneumothorax, with no significant interval changes. She was admitted to observation to determine further treatment plans and surgical incision with consultation placed to Dr. Teddy Wilkins. POD #4 left thoracotomey. total lung decortication, pectoralis major pedicle flap transposition into the left pleural space, cryoablation of the intercostal nerves. Postoperative acute blood loss anemia, an expected outcome of surgery. Postoperative hypotension, an expected outcome due to hypovolemia. On 02/04/2020 the patient was seen in follow-up at her bedside in the intensive care unit. She is sitting up to the bedside chair, she is alert, oriented 3. She is in no acute distress. Denies any complaints of shortness of breath and is complaining of some surgical type pain to her left chest tube insertion sites. She remains hemodynamically stable and is currently on no inotropic or pressor support. She did receive 2 250 mL 5% albumin and 1 unit of PRBCs last night for a hemoglobin of 7.9 and for some hypotension. Currently her blood pressure is 113/38 and her heart rate is sinus bradycardia 57 BPM. She remains with 3 left pleural chest tubes connected to low continuous wall suction -20 cm H2O. No air leak is present. Draining thin serosanguineous drainage. The anterior chest tubes drained 500 mL output since surgery and her posterior chest tube drained 130 mL output since surgery. She is achieving 1000 mL on her incentive spirometry with encouragement. Oxygen saturations are 98% on room air. Laboratory results morning show a WBC count 13.0, hemoglobin 7.9, platelets 515, BUN 14, creatinine 1.36 and magnesium 1.5. A repeat chest x-ray was completed this morning which demonstrated left-sided surgical changes with chest tubes and complete opacified left hemithorax without mediastinal shift. It also demonstrated improving overlying subcutaneous emphysema. She does have a Nolasco catheter in place for accurate I's and O's. On 02/05/2020 the patient was seen in follow-up at her bedside in the intensive care unit. She is currently laying in bed comfortably, she is awake, alert and oriented 3. She is in no acute distress and remained hemodynamically stable. Her hypotension is resolved and currently her blood pressure is 127/81 mmHg and is on no inotropic or pressor support. She denies any complaints of shortness of breath and reports her pain is well controlled with the current when necessary orders. Oxygen saturations are 98% on room air and she is achieving 1000 mL on her incentive spirometry. Chest x-ray was completed this morning which shows 3 left-sided chest tubes with continued complete whiteout of the left hemithorax and the patchy opacity in the periphery of the right mid lower lung. Laboratory results today show WBC 10.6, hemoglobin 7.0, platelets 516, BUN 19, creatinine 1.27 and magnesium 2.2. Her wound culture from her left chest completed on 01/29/2020 showed Actinomyces odontolyticus, infectious disease is following and she is currently on Rocephin and Flagyl for antibiotic coverage. Wound care was completed to her superficial left chest wound this morning and was packed with iodoform gauze. She remains with 3 left pleural chest tubes in place to low continuous wall suction -20 cm H2O. Small intermittent airleak present to her posterior chest tube. The chest tubes are d raining thin serosanguineous drainage with 80 mL out of her anterior chest tubes in the last 8 hours and 280 mL output in the last 24 hours. 140 mL output out of her posterior chest tube in the last 8 hours and 200 mL output in the last 24 hours. Right radial arterial line remains in place and functioning. On 02/06/2020 patient was seen in follow-up at her bedside in the intensive care unit. She is sitting up to the bedside chair, and is in no acute distress. The patient is awake, alert and oriented 3. She is hemodynamically stable and has been afebrile the last 24 hours. Currently denies any complaints of pain or shortness of breath. She does report that she had some episodes of surgical type pain to her left chest throughout the night rating her pain 5 out of 10 but was well controlled with the pain medication she received. With assistance the patient was ambulated in her room and did a round 5 laps of the length of room with minimal assistance. Her left pleural chest tubes remain in place to low continuous wall suction -20 cm H2O. She did have a positive air leak once the dressings were removed from her chest tube sites today. The airleak to the chest tubes did resolve once her dressings were reapplied. The chest tubes are draining thin serosanguineous drainage with her posterior chest tube draining 170 mL output the last 24 hours, and her anterior chest tubes draining 160 mL output in the last 24 hours. The dressing to her left chest superficial wound was changed and the wound was packed with iodoform gauze and covered with 4 x 4 gauze and secured with tape. The wound appeared clean with scant serosanguineous drainage. A chest x-ray was completed this morning which showed continuing complete opacity of the left lung, and improving subcutaneous emphy sema on the left and some worsening peripheral airspace disease on the right. Oxygen saturations are 97% on 2 L nasal cannula and she is achieving 1000 mL on her incentive spirometry. Laboratory results today show a WBC count 12.6, hemoglobin 7.2, platelets 613, sodium 135, venous CO2 20, BUN 19, and a creatinine of 0.94. She is transfer orders in place for the cardiac stepdown unit and is waiting for a bed. On 02/07/2020 the patient was seen in follow-up at her bedside in the cardiac stepdown unit. Currently she is sitting up to the bedside chair, she is in no acute distress. She remained hemodynamically stable, has been afebrile in the last 24 hours, oxygen saturation are 97% on 2 L nasal cannula. Denies any complaints of pain at this time or shortness of breath. She did ambulate in her room and completed about 5 laps with minimal assistance and had some shortness of breath with exertion, although recovered quickly. Left pleural chest tubes remain in place to low continuous wall suction -20 cm H2O. Intermittent air leak is present. Posterior chest tube drained 180 mL output in the last 24 hours, and her anterior chest tubes drained 100 mL in the last 24 hours of thin serosanguineous drainage. She is achieving 1000 mL on her incentive spirometry with encouragement. Wound care was completed to her left chest superficial wound with packing her wound with 1 inch iodoform gauze, covered with 4 x 4 gauze and secured with tape. The wound appeared with pink granulating tissue and scant serosanguineous drainage. A chest x-ray was completed this morning and per the report shows a small air fluid level in the left apex, continuing patchy bilateral infiltrates which may be slightly worsened from her previous exam yesterday. Laboratory results today show a WBC count trending down 10.7, hemoglobin 7.8, platelets 668, BUN 15 and creatinine 0.84. Her wound culture from her left chest completed on 01/29/2020 showed Actinomyces odontolyticus, and infectious disease is following, she is currently on Rocephin and Flagyl for antibiotic coverage. Wound Gram stain obtained on 02/03/2020 continues to show no organisms seen and the aerobic wound culture shows no growth after 24 hours. On 02/08/2020 the patient was seen in follow-up at her bedside on the cardiac [facility] unit. She is currently sitting up to the bedside chair, she is in no acute distress. Currently she denies any complaints of pain although reports she has had some episodes of shortness of breath off and on throughout the day. She hemodynamically stable and has been afebrile in the last 24 hours. She was on 2 L nasal cannula at this morning with oxygen saturations 97%, although she went for a PICC line placement and what the patient is saying she developed some increased shortness of breath and they were only able to do a midline. Currently, she is on BiPAP support with 60% FiO2 and oxygen saturations are 96%. Dr. Wilkins was present at her bedside and placed a wound VAC to her left chest superficial wound. The wound appears with some some pink granulated tissue and scant serosanguineous drainage. She remains with 3 left pleural chest tubes to low continuous wall suction -20 cm H2O. No air leak is present. Draining thin serosanguineous drainage with her anterior chest tubes draining 70 mL output in the last 24 hours and her posterior chest tube draining 90 mL output in the last 24 hours.a chest x-ray was completed this morning which the report demonstrates stable appearance to the left hemithorax with 3 chest tubes and only a very small portion of aerated lung on the left and progressively more confluence airspace disease throughout the right lung. Her wound culture from her left chest completed on 01/29/2020 showed Actinomyces odontolyticus, and infectious disease is following, she is currently on Rocephin and Flagyl for antibiotic coverage. laboratory results today show a WBC count 10.4, hemoglobin 8.0, platelets 778, BUN 12 and react 0.80. Objective - Vital Signs Vital signs: Vital Signs Temp 97.9 F 02/08/20 04:00 Pulse 98 02/08/20 12:08 Resp 17 02/08/20 08:00 BP 142/76 02/08/20 08:00 Pulse Ox 96 02/08/20 12:47 Intake & Output 02/07/20 02/08/20 02/08/20 18:59 06:59 18:59 Intake Total 290 240 Output Total 111 70 Balance 179 -70 240 Weight 69 kg Intake: Intake, IV Titration 50 Amount cefTRIAXone 2 gm In 50 Sodium Chloride 0.9% 50 ml @ 100 mls/hr IVPB Q24HR [facility] Rx#:[id number] Oral 240 240 Output: Chest Tube Drainage 110 70 Chest Tube Left Lateral 20 30 Chest Chest Tube Left Posterior 90 40 Chest Urine 1 Other: Voiding Method Toilet Toilet # Voids 1 1 1 ABP, PAP, CO, CI - Last Documented Arterial Blood Pressure 170/95 - Exam This is a 55-year-old pleasant female patient who is sitting up to the bedside chair in the cardiac stepdown unit. She is in no acute distress. Oxygen saturations are 96 percent on BiPAP with 60% FiO2. She is hemodynamically stable. - Constitutional General appearance: Present: average body habitus, cooperative, no acute distress - EENT Eyes: Present: PERRLA, normal appearance. Absent: scleral icterus - Neck Details: neck is supple, no JVD. Neck: Absent: lymphadenopathy, thyromegaly - Respiratory Details: lungs sounds essentially diminished throughout, greater on the left than right. Oxygen saturations 96% on BiPAP support with a 60% FiO2. Respirations are symmetrical and nonlabored. Achieving 750-1000 mL on her incentive spirometry. Left pleural chest tubes in place to low continuous wall suction -20 cm H2O. no air leak is present. Draining thin serosanguineous drainage with the posterior chest tube - Cardiovascular Details: regular rhythm and rate. S1 and S2 present, negative for S3, gallop or murmur. No edema present. Knee-high JOHAN hose and sequential compression devices in place to bilateral lower extremities. - Gastrointestinal Gastrointestinal Comment(s): abdomen is soft, nontender and nondistended. Active bowel sounds present in all 4 abdominal quadrants. No guarding or rigidity. - Integumentary Integumentary Comment(s): skin is warm and dry. No clubbing or cyanosis is present. Dressing to her left chest is clean, dry and in place. Wound VAC placed today by Dr. Wilkins. - Neurologic Neurologic: Present: CNII-XII intact - Musculoskeletal Musculoskeletal: Present: gait normal, generalized weakness, strength equal bilaterally - Psychiatric Psychiatric: Present: A&O x's 3, appropriate affect, intact judgment & insight - Allied health notes Allied health notes reviewed: nursing - Labs CBC & Chem 7: 02/08/20 08:12 02/08/20 08:12 Labs: Abnormal Lab Results - Last 24 Hours (Table) 02/07/20 02/07/20 02/08/20 Range/Units 16:19 20:19 06:37 RBC (3.80-5.40) m/uL Hgb (11.4-16.0) gm/dL Hct (34.0-46.0) % RDW (11.5-15.5) % Plt Count (150-450) k/uL Neutrophils # (1.3-7.7) k/uL Lymphocytes # (1.0-4.8) k/uL Glucose (74-99) mg/dL POC Glucose (mg/dL) 145 H 153 H 154 H (75-99) mg/dL 02/08/20 02/08/20 02/08/20 Range/Units 08:12 08:12 11:36 RBC 3.00 L (3.80-5.40) m/uL Hgb 8.0 L (11.4-16.0) gm/dL Hct 25.7 L (34.0-46.0) % RDW 16.4 H (11.5-15.5) % Plt Count 778 H (150-450) k/uL Neutrophils # 8.7 H (1.3-7.7) k/uL Lymphocytes # 0.9 L (1.0-4.8) k/uL Glucose 157 H (74-99) mg/dL POC Glucose (mg/dL) 222 H (75-99) mg/dL Microbiology - Last 24 Hours (Table) 02/03/20 15:46 Gram Stain - Final Other - Other Wound Culture - Final Actinomyces odontolyticus 02/03/20 15:46 Anaerobic Culture - Final Other - Other - Imaging and Cardiology Chest x-ray: report reviewed, image reviewed Assessment and Plan Assessment: 1. Empyema left chest status post left upper lobectomy, status post left thoracotomy, total lung decortication, pectoralis major pedicle flap transposition into the left pleural space, cryoablation of intercostal nerves. 2. Superficial wound, with culture from 01/29/2020 positive for Actinomyces odontolyticus. Currently on Rocephin and Flagyl managed by infectious disease 3. History of poorly differentiated squamous cell carcinoma, status post left upper lobectomy on 12/31/2019 4. History of hypertension 5. History of hyperlipidemia 6. Previous tobacco dependence 7. Type 2 diabetes 8. History of cervical cancer status post hysterectomy 9. History of anxiety/bipolar disorder 10. Postoperative acute blood loss anemia, an expected outcome 11. Postoperative hypotension, an expected outcome, resolved Plan: 1. Keep left pleural chest tubes to low continuous water seal. Continue to monitor accurate I&O. 2. Encourage use of her incentive spirometry 10 times an hour while awake. 3. Continue to encourage smoking cessation. 4. Continue to hold Eliquis. No further episodes of atrial fibrillation. Continue subcu heparin for DVT prophylaxis. 5. Dressing changed to her left chest today,wound VAC placed. Change wound VAC Saturday. 6. Gram stain/culture obtained in the operating room yesterday shows no organisms seen after 24 hours. Final culture results remain pending. Initial culture from her left chest wound from 01/29/2020 showed Actinomyces odont olyticus continue Rocephin and Flagyl managed by infectious disease. The patient will need a PICC line for outpatient antibiotic treatment. 7. GI and DVT prophylaxis. 8. Out of bed for all meals. Increase activity as tolerated with walking in the room. Physical therapy following. 9. Continue ferrous sulfate 325 mg by mouth daily at lunch and vitamin C 500 mg by mouth daily. 10. Continue to monitor daily labs and chest x-rays. Replace electrolytes per protocol. 11. Obtain a computed tomography scan of her chest for increased shortness of breath and increase oxygen requirements. 12. More recommendations to follow based on patient's clinical course. Time with Patient: Greater than 30
[2020-02-08] MEDS: SODIUM CHLORIDE 0.9% 1,000 ML IV SCH (16:39)
--- NOTE | 2020-02-08 17:50 | PN ---
PROGRESS NOTE DATE OF SERVICE: 02/08/2020 REASON FOR FOLLOWUP: Left-sided empyema and a question of new pneumonia. INTERVAL HISTORY: The patient is currently afebrile. However, the patient still has problems, more with increasing shortness of breath, and is requiring high-flow oxygen and BiPAP. The patient is still complaining of shortness of breath. She did have a cough but not bringing up any sputum. No chest pain. No nausea, no vomiting, no abdominal pain or diarrhea. PHYSICAL EXAMINATION: Blood pressure 142/76, pulse of 79, temperature of 97.9. She is 97% on 2 L nasal cannula. General description is a middle-aged female up in the bed in no distress. RESPIRATORY SYSTEM: Unlabored breathing with coarse breath sounds bilaterally. HEART: S1, S2. Regular rate and rhythm. ABDOMEN: Soft. No tenderness. LABS/IMAGING: Hemoglobin is 8, white count 10.4, BUN of 12, creatinine 0.80. The pleural fluid culture with Actinomyces. Chest x-ray this morning showing progressively more confluent airspace disease throughout the right lung. DIAGNOSTIC IMPRESSION AND PLAN: Patient with left-sided empyema, status post thoracotomy, now with evidence of pneumonia of the right lung, and the patient is complaining of more shortness of breath. At this time we will try to obtain a sputum sample to narrow down her antibiotics. We will add vancomycin and give her a dose of Levaquin. Continue with the Rocephin and monitor clinical course closely. Overall prognosis remains guarded. MMODL / IJN: [id number] /
[2020-02-08 20:49] LABS: Glucose,Whole Blood 138 mg/dL (75-99)
[2020-02-08] MEDS: SENNOSIDES-DOCUSATE SODIUM 1 EACH TAB PO SCH (21:38)
[2020-02-09] MEDS: ALBUTEROL NEBULIZED 2.5 MG/3 ML INHALATION PRN ×4 (03:24→19:06)
[2020-02-09 06:07] LABS: Glucose,Whole Blood 140 mg/dL (75-99)
[2020-02-09 06:11] LABS: Anisocytosis Slight; Basophils % (A) 0 %; Eosinophils # (A) 0.1 k/uL (0-0.7); Eosinophils % (A) 1 %; HGB 7.4 gm/dL (11.4-16.0); Hypochromasia Marked; Lymphocytes # (A) 0.9 k/uL (1.0-4.8); Lymphocytes % (A) 9 %; MCH 26.5 pg (25.0-35.0); MCHC 30.9 g/dL (31.0-37.0); MCV 85.8 fL (80.0-100.0); Monocytes # (A) 0.4 k/uL (0-1.0); Monocytes % (A) 4 %; Neutrophils # (A) 8.2 k/uL (1.3-7.7); Neutrophils % (A) 84 %; Platelet Count 756 k/uL (150-450); Poikilocytosis Slight; RDW 16.3 % (11.5-15.5); WBC 9.8 k/uL (3.8-10.6)
[2020-02-09 06:19] LABS: African American GFR (CKD) >90 (>60 ml/min/1.73 sqM); Anion Gap 9 mmol/L; Blood Urea Nitrogen 11 mg/dL (7-17); Calcium 8.1 mg/dL (8.4-10.2); Carbon Dioxide 26 mmol/L (22-30); Chloride 101 mmol/L (98-107); Glucose 126 mg/dL (74-99); Non-African American GFR(CKD) 87 (>60 ml/min/1.73 sqM); Potassium 3.8 mmol/L (3.5-5.1); Sodium 136 mmol/L (137-145)
[2020-02-09] MEDS: VANCOMYCIN 1,250 MG in SODIUM CHLORIDE 0.9% 250 ML IVPB SCH ×2 (06:19→18:24)
[2020-02-09] MEDS: INSULIN ASPART (NovoLOG) 100 UNIT/ML VIAL SQ SCH ×4 (06:20→21:19)
[2020-02-09] MEDS: metFORMIN 500 MG TAB PO SCH ×2 (06:20→16:15)
[2020-02-09] MEDS: PANTOPRAZOLE 40 MG TABLET PO SCH (06:20)
--- NOTE | 2020-02-09 07:45 | XR ---
EXAMINATION TYPE: XR chest 1V portable DATE OF EXAM: 02/09/2020 Comparison: 02/08/2020 Clinical History: 55-year-old female shortness of breath Findings: Only small portions of the left lung remains aerated as seen previously. The majority of the lung noelle ws whiteout with [address]. Patchy and confluent airspace opacities throughout the right lung are similar to minimally less confluent. Impression: 1. [address] in [address] on the left with near complete white out of the left hemithorax. Tosin y small portions of aerated lung remain unchanged. 2. Right-sided airspace disease is similar to minimally less confluent.
[2020-02-09] MEDS ORDERED: FUROSEMIDE 10 MG/ML 4 ML VIAL IV STA (09:07)
[2020-02-09] MEDS: ASCORBIC ACID 500 MG TAB PO SCH (09:22)
[2020-02-09] MEDS: amLODIPine 10 MG TAB PO SCH (09:23)
[2020-02-09] MEDS: DULoxetine HCL 60 MG CAPSULE.DR PO SCH (09:23)
[2020-02-09] MEDS: traMADol 50 MG TAB PO SCH ×3 (09:23→20:30)
[2020-02-09] MEDS: AMIODARONE 200 MG TAB PO SCH (09:23)
[2020-02-09] MEDS: VALSARTAN 160 MG TAB PO SCH (09:24)
[2020-02-09] MEDS: hydrALAZINE HCL 50 MG TAB PO SCH ×4 (09:24→20:30)
[2020-02-09] MEDS: MAGNESIUM OXIDE 400 MG TAB PO SCH ×2 (09:24→20:30)
[2020-02-09] MEDS: BISOPROLOL 5 MG TAB PO SCH (09:24)
[2020-02-09] MEDS: HEPARIN SODIUM,PORCINE 5,000 UNIT/ML 1 ML VIAL SQ SCH ×3 (09:25→23:31)
--- NOTE | 2020-02-09 09:26 | P.PN ---
Subjective Progress Note Date: 02/09/20 Principal diagnosis: This is a 55-year-old female patient who follows with Dr. Leroy on an outpatient basis. She has a past medical history of poorly differentiated squamous cell carcinoma, status post left upper lobectomy on 12/31/2019, hypertension, hyperlipidemia, chronic tobacco abuse, type 2 diabetes mellitus, cervical cancer status post hysterectomy, anxiety and bipolar disorder. On 01/28/2020 she had a follow-up visit with Dr. Teddy Wilkins for her pathology results of her recent left upper lobectomy. Upon exam of her surgical incisions there was a fluctuant area which was painful to touch on her left chest. Subsequently she was started on oral Keflex. Yesterday morning she developed some drainage from that incision site with the fluctuant area, leaking foul smelling yellowish fluid. Her initial lab results showed a WBC count 12.0, Hgb 8.3, neutrophils 59%, positive band neutrophil percent 24 and neutrophil numbers 9.0. A chest x-ray was completed which demonstrated a normal and the left hydropneumothorax, with no significant interval changes. She was admitted to observation to determine further treatment plans and surgical incision with consultation placed to Dr. Teddy Wilkins. POD #4 left thoracotomey. total lung decortication, pectoralis major pedicle flap transposition into the left pleural space, cryoablation of the intercostal nerves. Postoperative acute blood loss anemia, an expected outcome of surgery. Postoperative hypotension, an expected outcome due to hypovolemia. On 02/04/2020 the patient was seen in follow-up at her bedside in the intensive care unit. She is sitting up to the bedside chair, she is alert, oriented 3. She is in no acute distress. Denies any complaints of shortness of breath and is complaining of some surgical type pain to her left chest tube insertion sites. She remains hemodynamically stable and is currently on no inotropic or pressor support. She did receive 2 250 mL 5% albumin and 1 unit of PRBCs last night for a hemoglobin of 7.9 and for some hypotension. Currently her blood pressure is 113/38 and her heart rate is sinus bradycardia 57 BPM. She remains with 3 left pleural chest tubes connected to low continuous wall suction -20 cm H2O. No air leak is present. Draining thin serosanguineous drainage. The anterior chest tubes drained 500 mL output since surgery and her posterior chest tube drained 130 mL output since surgery. She is achieving 1000 mL on her incentive spirometry with encouragement. Oxygen saturations are 98% on room air. Laboratory results morning show a WBC count 13.0, hemoglobin 7.9, platelets 515, BUN 14, creatinine 1.36 and magnesium 1.5. A repeat chest x-ray was completed this morning which demonstrated left-sided surgical changes with chest tubes and complete opacified left hemithorax without mediastinal shift. It also demonstrated improving overlying subcutaneous emphysema. She does have a Nolasco catheter in place for accurate I's and O's. On 02/05/2020 the patient was seen in follow-up at her bedside in the intensive care unit. She is currently laying in bed comfortably, she is awake, alert and oriented 3. She is in no acute distress and remained hemodynamically stable. Her hypotension is resolved and currently her blood pressure is 127/81 mmHg and is on no inotropic or pressor support. She denies any complaints of shortness of breath and reports her pain is well controlled with the current when necessary orders. Oxygen saturations are 98% on room air and she is achieving 1000 mL on her incentive spirometry. Chest x-ray was completed this morning which shows 3 left-sided chest tubes with continued complete whiteout of the left hemithorax and the patchy opacity in the periphery of the right mid lower lung. Laboratory results today show WBC 10.6, hemoglobin 7.0, platelets 516, BUN 19, creatinine 1.27 and magnesium 2.2. Her wound culture from her left chest completed on 01/29/2020 showed Actinomyces odontolyticus, infectious disease is following and she is currently on Rocephin and Flagyl for antibiotic coverage. Wound care was completed to her superficial left chest wound this morning and was packed with iodoform gauze. She remains with 3 left pleural chest tubes in place to low continuous wall suction -20 cm H2O. Small intermittent airleak present to her posterior chest tube. The chest tubes are d raining thin serosanguineous drainage with 80 mL out of her anterior chest tubes in the last 8 hours and 280 mL output in the last 24 hours. 140 mL output out of her posterior chest tube in the last 8 hours and 200 mL output in the last 24 hours. Right radial arterial line remains in place and functioning. On 02/06/2020 patient was seen in follow-up at her bedside in the intensive care unit. She is sitting up to the bedside chair, and is in no acute distress. The patient is awake, alert and oriented 3. She is hemodynamically stable and has been afebrile the last 24 hours. Currently denies any complaints of pain or shortness of breath. She does report that she had some episodes of surgical type pain to her left chest throughout the night rating her pain 5 out of 10 but was well controlled with the pain medication she received. With assistance the patient was ambulated in her room and did a round 5 laps of the length of room with minimal assistance. Her left pleural chest tubes remain in place to low continuous wall suction -20 cm H2O. She did have a positive air leak once the dressings were removed from her chest tube sites today. The airleak to the chest tubes did resolve once her dressings were reapplied. The chest tubes are draining thin serosanguineous drainage with her posterior chest tube draining 170 mL output the last 24 hours, and her anterior chest tubes draining 160 mL output in the last 24 hours. The dressing to her left chest superficial wound was changed and the wound was packed with iodoform gauze and covered with 4 x 4 gauze and secured with tape. The wound appeared clean with scant serosanguineous drainage. A chest x-ray was completed this morning which showed continuing complete opacity of the left lung, and improving subcutaneous emphy sema on the left and some worsening peripheral airspace disease on the right. Oxygen saturations are 97% on 2 L nasal cannula and she is achieving 1000 mL on her incentive spirometry. Laboratory results today show a WBC count 12.6, hemoglobin 7.2, platelets 613, sodium 135, venous CO2 20, BUN 19, and a creatinine of 0.94. She is transfer orders in place for the cardiac stepdown unit and is waiting for a bed. On 02/07/2020 the patient was seen in follow-up at her bedside in the cardiac stepdown unit. Currently she is sitting up to the bedside chair, she is in no acute distress. She remained hemodynamically stable, has been afebrile in the last 24 hours, oxygen saturation are 97% on 2 L nasal cannula. Denies any complaints of pain at this time or shortness of breath. She did ambulate in her room and completed about 5 laps with minimal assistance and had some shortness of breath with exertion, although recovered quickly. Left pleural chest tubes remain in place to low continuous wall suction -20 cm H2O. Intermittent air leak is present. Posterior chest tube drained 180 mL output in the last 24 hours, and her anterior chest tubes drained 100 mL in the last 24 hours of thin serosanguineous drainage. She is achieving 1000 mL on her incentive spirometry with encouragement. Wound care was completed to her left chest superficial wound with packing her wound with 1 inch iodoform gauze, covered with 4 x 4 gauze and secured with tape. The wound appeared with pink granulating tissue and scant serosanguineous drainage. A chest x-ray was completed this morning and per the report shows a small air fluid level in the left apex, continuing patchy bilateral infiltrates which may be slightly worsened from her previous exam yesterday. Laboratory results today show a WBC count trending down 10.7, hemoglobin 7.8, platelets 668, BUN 15 and creatinine 0.84. Her wound culture from her left chest completed on 01/29/2020 showed Actinomyces odontolyticus, and infectious disease is following, she is currently on Rocephin and Flagyl for antibiotic coverage. Wound Gram stain obtained on 02/03/2020 continues to show no organisms seen and the aerobic wound culture shows no growth after 24 hours. On 02/08/2020 the patient was seen in follow-up at her bedside on the cardiac [facility] unit. She is currently sitting up to the bedside chair, she is in no acute distress. Currently she denies any complaints of pain although reports she has had some episodes of shortness of breath off and on throughout the day. She hemodynamically stable and has been afebrile in the last 24 hours. She was on 2 L nasal cannula at this morning with oxygen saturations 97%, although she went for a PICC line placement and what the patient is saying she developed some increased shortness of breath and they were only able to do a midline. Currently, she is on BiPAP support with 60% FiO2 and oxygen saturations are 96%. Dr. Wilkins was present at her bedside and placed a wound VAC to her left chest superficial wound. The wound appears with some some pink granulated tissue and scant serosanguineous drainage. She remains with 3 left pleural chest tubes to low continuous wall suction -20 cm H2O. No air leak is present. Draining thin serosanguineous drainage with her anterior chest tubes draining 70 mL output in the last 24 hours and her posterior chest tube draining 90 mL output in the last 24 hours.a chest x-ray was completed this morning which the report demonstrates stable appearance to the left hemithorax with 3 chest tubes and only a very small portion of aerated lung on the left and progressively more confluence airspace disease throughout the right lung. Her wound culture from her left chest completed on 01/29/2020 showed Actinomyces odontolyticus, and infectious disease is following, she is currently on Rocephin and Flagyl for antibiotic coverage. laboratory results today show a WBC count 10.4, hemoglobin 8.0, platelets 778, BUN 12 and react 0.80. On 02/09/2020 patient was seen in follow-up at her bedside on the cardiac stepdown unit. She is currently sitting up to the bedside chair and she is in no acute distress. She is complaining of episodes of shortness of breath and denies any complaints of pain at this time. A computed tomography scan of her chest was ordered yesterday and she felt like she could not undergo the CT of her chest due to her shortness of breath and inability to lie flat. She remains hemodynamically stable, afebrile and her oxygen saturations on high flow oxygen of 50% are 99%. A chest x-ray was completed this morning which shows 3 chest tubes remaining in place on the left with near complete whiteout of the left hemithorax, with a very small portion of aerated lung, it also demonstrated right-sided airspace disease similar to minimally last to fluid. Wound VAC dressing remains clean, dry and in place to her left chest superficial wound with scant serosanguineous drainage. Left pleural chest tubes remain in place and are to water seal. No air leak is present. Draining thin serosanguineous drainage with her posterior chest tube draining 100 mL output last 24 hours, and her anterior chest tubes draining 30 mL in the last 24 hours. A repeat pro- calcitonin level was drawn yesterday and was 0.31 which is trending down from the previous pro-calcitonin level. Laboratory results today show a WBC count 9.8, hemoglobin 7.4, platelets 756, BUN 11 and creatinine 0.77. The wound culture from her left chest completed on 01/29/2020 and her wound culture obtained in the operating room on 02/03/2020 both resulted Actinomyces odontolyticus. She remains on Rocephin and Flagyl for antibiotic coverage which has been managed by infectious disease. She did receive 1 dose of vancomycin and Levaquin yesterday as well. She has been ambulating in her room with minimal assistance. Remote telemetry showing normal sinus rhythm heart rate 85. Objective - Vital Signs Vital signs: Vital Signs Temp 97.7 F 02/09/20 04:00 Pulse 80 02/09/20 08:02 Resp 20 02/09/20 04:00 BP 120/67 02/09/20 04:00 Pulse Ox 98 02/09/20 07:48 Intake & Output 02/08/20 02/09/20 02/09/20 18:59 06:59 18:59 Intake Total 360 Output Total 355 Balance 360 -355 Weight 67.9 kg Intake: Oral 360 Output: Chest Tube Drainage 355 Chest Tube Left Lateral 205 Chest Chest Tube Left Posterior 150 Chest Other: Voiding Method Toilet # Voids 1 1 # Bowel Movements 1 ABP, PAP, CO, CI - Last Documented Arterial Blood Pressure 170/95 - Exam This is a 55-year-old pleasant female patient who is sitting up to the bedside chair in the cardiac stepdown unit. She is in no acute distress. Oxygen saturations are 99 % on high flow FiO2 of 50%. She is hemodynamically stable and afebrile. - Constitutional General appearance: Present: average body habitus, cooperative, no acute distress - EENT Eyes: Present: PERRLA, dentition normal, normal appearance. Absent: scleral icterus ENT: Present: hearing grossly normal, normal oropharynx. Absent: thrush - Neck Details: Neck is supple, no lymphadenopathy. Neck: Absent: lymphadenopathy, stridor - Respiratory Details: Lung sounds with few scattered crackles to her right lobes, diminished to her bi lateral bases left greater than right. Respirations are symmetrical and nonlabored. Oxygen saturation is 99% with high flow FiO2 of 50%. Left pleural chest tubes remain in place to water seal. No air leak is present. Draining thin serosanguineous drainage with 100 mL output in the last 24 hours from her posterior chest tube and 30 mL output in the last 24 hours from her anterior chest tube. - Cardiovascular Details: Regular rhythm and rate. S1 and S2 present, negative for S3, gallop or murmur. No edema present. Knee-high JOHAN hose and sequential compression devices in place to bilateral lower extremities. Remote telemetry showing normal sinus rhythm heart rate 85. - Gastrointestinal Gastrointestinal Comment(s): Abdomen is soft, nontender and nondistended. Active bowel sounds present all 4 abdominal quadrants. No guarding or rigidity. No organomegaly appreciated. Bowel movement yesterday 02/08/2020. - Integumentary Integumentary Comment(s): Skin is warm and dry. No cyanosis but does have positive clubbing. Wound VAC is clean, dry and in place to her left chest superficial wound. Integumentary: Absent: rash - Neurologic Neurologic: Present: CNII-XII intact - Musculoskeletal Musculoskeletal: Present: gait normal, generalized weakness, strength equal bilaterally - Psychiatric Psychiatric: Present: A&O x's 3, appropriate affect, intact judgment & insight - Allied health notes Allied health notes reviewed: nursing - Labs CBC & Chem 7: 02/09/20 05:55 02/09/20 05:55 Labs: Abnormal Lab Results - Last 24 Hours (Table) 02/08/20 02/08/20 02/08/20 Range/Units 06:58 11:36 16:24 RBC (3.80-5.40) m/uL Hgb (11.4-16.0) gm/dL Hct (34.0-46.0) % MCHC (31.0-37.0) g/dL RDW (11.5-15.5) % Plt Count (150-450) k/uL Neutrophils # (1.3-7.7) k/uL Lymphocytes # (1.0-4.8) k/uL Sodium (137-145) mmol/L Glucose (74-99) mg/dL POC Glucose (mg/dL) 222 H 146 H (75-99) mg/dL Calcium (8.4-10.2) mg/dL Procalcitonin 0.31 H (0.02-0.09) ng/mL 02/08/20 02/09/20 02/09/20 Range/Units 20:48 05:55 05:55 RBC 2.80 L (3.80-5.40) m/uL Hgb 7.4 L (11.4-16.0) gm/dL Hct 24.0 L (34.0-46.0) % MCHC 30.9 L (31.0-37.0) g/dL RDW 16.3 H (11.5-15.5) % Plt Count 756 H (150-450) k/uL Neutrophils # 8.2 H (1.3-7.7) k/uL Lymphocytes # 0.9 L (1.0-4.8) k/uL Sodium 136 L (137-145) mmol/L Glucose 126 H (74-99) mg/dL POC Glucose (mg/dL) 138 H (75-99) mg/dL Calcium 8.1 L (8.4-10.2) mg/dL Procalcitonin (0.02-0.09) ng/mL 02/09/20 Range/Units 06:05 RBC (3.80-5.40) m/uL Hgb (11.4-16.0) gm/dL Hct (34.0-46.0) % MCHC (31.0-37.0) g/dL RDW (11.5-15.5) % Plt Count (150-450) k/uL Neutrophils # (1.3-7.7) k/uL Lymphocytes # (1.0-4.8) k/uL Sodium (137-145) mmol/L Glucose (74-99) mg/dL POC Glucose (mg/dL) 140 H (75-99) mg/dL Calcium (8.4-10.2) mg/dL Procalcitonin (0.02-0.09) ng/mL - Imaging and Cardiology Chest x-ray: report reviewed, image reviewed Assessment and Plan Assessment: 1. Empyema left chest status post left upper lobectomy, status post left thoracotomy, total lung decortication, pectoralis major pedicle flap transposition into the left pleural space, cryoablation of intercostal nerves. 2. Superficial wound, with culture from 01/29/2020 positive for Actinomyces odontolyticus. Currently on Rocephin and Flagyl managed by infectious disease 3. History of poorly differentiated squamous cell carcinoma, status post left upper lobectomy on 12/31/2019 4. History of hypertension 5. History of hyperlipidemia 6. Previous tobacco dependence 7. Type 2 diabetes 8. History of cervical cancer status post hysterectomy 9. History of anxiety/bipolar disorder 10. Postoperative acute blood loss anemia, an expected outcome 11. Postoperative hypotension, an expected outcome, resolved Plan: 1. Keep left pleural chest tubes to water seal. Continue to monitor accurate I&O. 2. Encourage use of her incentive spirometry 10 times an hour while awake. 3. Continue to encourage smoking cessation. 4. Continue to hold Eliquis. No further episodes of atrial fibrillation. Continue subcu heparin /knee-high JOHAN hose and sequential compression devices for DVT prophylaxis. 5. Dressing changed to her left chest yesterday by Dr. Wilkins with the wound VAC placed. Change wound VAC Saturday. 6. Culture obtained in the operating room 02/03/2020 shows Actinomyces odontolyticus. Initial culture from her left chest wound from 01/29/2020 also showed Actinomyces odontolyticus continue Rocephin and Flagyl managed by infectious disease. The patient will need a PICC line for outpatient antibiotic treatment, she went for a PICC line placement yesterday but was unable to lay flat due to her shortness of breath. Reschedule PICC line for when patient is able to tolerate laying flat. 7. GI and DVT prophylaxis. 8. Out of bed for all meals. Increase activity as tolerated with walking in the room. Physical therapy following. 9. Continue ferrous sulfate 325 mg by mouth daily at lunch and vitamin C 500 mg by mouth daily. 10. Continue to monitor daily labs and chest x-rays. Replace electrolytes per protocol. 11. Obtain a computed tomography scan of her chest for increased shortness of breath and increase oxygen requirements when able to tolerate. 12. Lasix 40 mg IV 1 now. 13. The patient's Gustavo was updated on her care today will present at her bedside, per phone. 14. Bronchodilators and weaning of oxygen per pulmonary medicine recommendations. 15. More recommendations to follow based on patient's clinical course. Time with Patient: Greater than 30
[2020-02-09] MEDS: metroNIDAZOLE 500 MG TAB PO SCH ×3 (09:41→23:32)
[2020-02-09] MEDS ORDERED: FUROSEMIDE 10 MG/ML 4 ML VIAL ONE (10:49)
[2020-02-09 11:48] LABS: Glucose,Whole Blood 140 mg/dL (75-99)
[2020-02-09] MEDS ORDERED: POTASSIUM CHLORIDE ER 20 MEQ TAB.ER PO STA (12:12)
--- NOTE | 2020-02-09 12:30 | P.PN ---
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 Recent history left upper lobectomy for poorly differentiated squamous cell carcinoma This is a 55-year-old female patient who follows with Dr. Leroy on an outpatient basis. She has a past medical history of poorly differentiated squamous cell carcinoma, status post left upper lobectomy on 12/31/2019, hyperte nsion, hyperlipidemia, chronic tobacco abuse, type 2 diabetes mellitus, cervical cancer status post hysterectomy, anxiety and bipolar disorder. On 01/28/2020 she had a follow-up visit with Dr. Teddy Wilkins for her pathology results of her recent left upper lobectomy. Upon exam of her surgical incisions there was a fluctuant area which was painful to touch on her left chest. Subsequently she was started on oral Keflex. Yesterday morning she developed some drainage from that incision site with the fluctuant area, leaking foul smelling yellowish fluid. Her initial lab results showed a WBC count 12.0, Hgb 8.3, neutrophils 59%, positive band neutrophil percent 24 and neutrophil numbers 9.0. A chest x- ray was completed which demonstrated a normal and the left hydropneumothorax, with no significant interval changes. She was admitted to observation to determine further treatment plans and surgical incision with consultation placed to Dr. Teddy Wilkins. On 02/02/2020 patient was seen on follow-up on the fourth floor medical surgical unit. She is resting comfortably in bed, she is alert and oriented 3. Remains hemodynamically stable and is in no acute distress. She has been afebrile for the last 24 hours. Oxygen saturations are 96% on room air. Her left chest wound culture sensitivities remain pending, currently showing gram-positive bacilli. She is on meropenem and vancomycin for antibiotic coverage. Denies any complaints of shortness of breath or pain. The patient states that she had a shower this morning and that her left chest drainage site had minimal drainage from it in the last 12 hours. She was scheduled for a left thoracotomy with decortication for this morning to be performed by Dr. Teddy Wilkins. The procedure was changed and rescheduled for tomorrow 02/03/2020 as Elquis was stopped yesterday morning. Lab results today show a WBC count of 9.0, hemog lobin 10.1, and platelets 962. She is demonstrating good use of her incentive spirometry and achieving 1000 mL. On 02/03/2020 patient is seen in follow-up on general medical floor. She is calm and comfortable, vital signs are stable, room air pulse ox 96%, afebrile, respirations are nonlabored, left chest wound drainage is small amount, reddish in color today. Wound culture showed gram-positive bacilli, patient remains on combination of meropenem and vancomycin for possibility of empyema bro nchopleural fistula, patient has been scheduled for surgical decortication by Dr. Wilkins today. No acute events overnight. On 02/09/2020 patient seen in follow-up on selective care unit. Yesterday patient had episode of acute desaturation and worsening dyspnea and she was laid down flat for PICC line insertion. The procedure was not completed, patient returned to her room, she required placement on high flow oxygen, she could not tolerate BiPAP support. She was given a dose of oral Lasix, her chest x-ray yesterday showed worsening airspace disease throughout the right lung, and stable appearance of left hemithorax with 3 chest tubes with very small portion of aerated lung on the left. Patient has diuresed, she is in negative fluid balance, she is down 1.1 kg since yesterday, her proBNP came back at 4760, IV fluids have been cut back, yesterday's pro-calcitonin was trending down at 0.31, however it's back up again at 1.10, antibiotic coverage has been switched to Levaquin and vancomycin, ID service is following, patient has been afebrile. Today's labs have been reviewed on Web blood cell count of 9.8, hemoglobin of 7.4, electrolytes within normal limits, renal profile unremarkable Objective - Vital Signs Vital signs: Vital Signs Temp 97.5 F L 02/09/20 08:00 Pulse 80 02/09/20 11:42 Resp 18 02/09/20 08:00 BP 157/76 02/09/20 08:00 Pulse Ox 98 02/09/20 11:37 Intake & Output 02/08/20 02/09/20 02/09/20 18:59 06:59 18:59 Intake Total 360 Output Total 355 Balance 360 -355 Weight 67.9 kg Intake: Oral 360 Output: Chest Tube Drainage 355 Chest Tube Left Lateral 205 Chest Chest Tube Left Posterior 150 Chest Other: Voiding Method Toilet # Voids 1 1 1 # Bowel Movements 1 ABP, PAP, CO, CI - Last Documented Arterial Blood Pressure 170/95 - Exam GENERAL EXAM: Alert, very pleasant, 55-year-old white female, on room air, currently on Airvo at 60 l/min, Fio2 of 50% comfortable in no apparent distress. HEAD: Normocephalic/atraumatic. EYES: Normal reaction of pupils, equal size. Conjunctiva pink, sclera white. NOSE: Clear with pink turbinates. THROAT: No erythema or exudates. NECK: No masses, no JVD, no thyroid enlargement, no adenopathy. CHEST: No chest wall deformity. Symmetrical expansion. Patient has 2 lateral and one left posterior chest tube with no evidence of air leak, to waterseal, with serosanguineous output LUNGS: Equal air entry with no crackles, wheeze, rhonchi or dullness. CVS: Regular rate and rhythm, normal S1 and S2, no gallops, no murmurs, no rubs ABDOMEN: Soft, nontender. No hepatosplenomegaly, normal bowel sounds, no guarding or rigidity. EXTREMITIES: No clubbing, no edema, no cyanosis, 2+ pulses and upper and lower extremities. MUSCULOSKELETAL: Muscle strength and tone normal. SPINE: No scoliosis or deformity SKIN: Wound on the left posterior chest wall, with drainage of purulent serosanguineous drainage. CENTRAL NERVOUS SYSTEM: Alert and oriented -3. No focal deficits, tone is normal in all 4 extremities. PSYCHIATRIC: Alert and oriented -3. Appropriate affect. Intact judgment and insight. - Labs CBC & Chem 7: 02/09/20 05:55 02/09/20 05:55 Labs: Abnormal Lab Results - Last 24 Hours (Table) 02/08/20 02/08/20 02/08/20 Range/Units 06:58 16:24 20:48 RBC (3.80-5.40) m/uL Hgb (11.4-16.0) gm/dL Hct (34.0-46.0) % MCHC (31.0-37.0) g/dL RDW (11.5-15.5) % Plt Count (150-450) k/uL Neutrophils # (1.3-7.7) k/uL Lymphocytes # (1.0-4.8) k/uL Sodium (137-145) mmol/L Glucose (74-99) mg/dL POC Glucose (mg/dL) 146 H 138 H (75-99) mg/dL Calcium (8.4-10.2) mg/dL Procalcitonin 0.31 H (0.02-0.09) ng/mL 02/09/20 02/09/20 02/09/20 Range/Units 05:55 05:55 05:55 RBC 2.80 L (3.80-5.40) m/uL Hgb 7.4 L (11.4-16.0) gm/dL Hct 24.0 L (34.0-46.0) % MCHC 30.9 L (31.0-37.0) g/dL RDW 16.3 H (11.5-15.5) % Plt Count 756 H (150-450) k/uL Neutrophils # 8.2 H (1.3-7.7) k/uL Lymphocytes # 0.9 L (1.0-4.8) k/uL Sodium 136 L (137-145) mmol/L Glucose 126 H (74-99) mg/dL POC Glucose (mg/dL) (75-99) mg/dL Calcium 8.1 L (8.4-10.2) mg/dL Procalcitonin 1.10 H (0.02-0.09) ng/mL 02/09/20 02/09/20 Range/Units 06:05 11:47 RBC (3.80-5.40) m/uL Hgb (11.4-16.0) gm/dL Hct (34.0-46.0) % MCHC (31.0-37.0) g/dL RDW (11.5-15.5) % Plt Count (150-450) k/uL Neutrophils # (1.3-7.7) k/uL Lymphocytes # (1.0-4.8) k/uL Sodium (137-145) mmol/L Glucose (74-99) mg/dL POC Glucose (mg/dL) 140 H 140 H (75-99) mg/dL Calcium (8.4-10.2) mg/dL Procalcitonin (0.02-0.09) ng/mL Assessment and Plan Plan: Assessment: #1. Acute empyema of the left chest, status post left thoracotomy, total lung decortication, pectoralis major pedicle flap transposition into the left pleural space, and cryoablation of the intercostal nerves, postoperative day #6. #2. Acute exacerbation of CHF, fluid overload previously documented diastolic dysfunction, from echocardiogram on 01/02/2020 EF is 55-60%, mild MR, mild TR, no evidence of PAH #3. Superficial wound, draining thin foul-smelling yellowish drainage, with blood cultures positive for gram-positive bacilli, and is on, on meropenem and vancomycin, and she is going for surgical decortication today on 02/03/[address] Wilkins. Wound cultures positive for actinomyces odontolyticus, current antibiotic coverage is with Levaquin and vancomycin #4. History of poorly differentiated squamous cell carcinoma, status post left upper lobectomy on 12/31/2019 #5. History of hypertension #6. History of hyperlipidemia #7. Previous tobacco dependence #8. Type 2 diabetes #9. History of cervical cancer status post hysterectomy #10. History of anxiety/bipolar disorder Plan: Patient was given an additional dose of IV Lasix, continue weaning FiO2, patient had a recent echocardiogram in December showing preserved LV function with EF of 55-60%. Antibiotic coverage per ID service recommendations, current coverage includes Levaquin, Flagyl and vancomycin, patient has been afebrile. We'll obtain follow-up chest x-ray in the morning, chest tubes remain in place, follow CT surgery recommendations for chest tube management. No air leak noted, chest tubes are to waterseal. Wound VAC has been applied to left chest wall wound. I performed a history & physical examination of the patient and discussed their management with my nurse practitioner, Bria Cid. I reviewed the nurse practitioner's note and agree with the documented findings and plan of care. Lung sounds are positive for diffuse wheezes throughout the lung cornejo. The findings and the impression was discussed with the patient. I attest to the documentation by the nurse practitioner. Time with Patient: Less than 30
[2020-02-09] MEDS: FERROUS SULFATE 325 MG TAB PO SCH (12:45)
--- NOTE | 2020-02-09 16:41 | P.PN ---
Subjective Progress Note Date: 02/09/20 This is a 55-year-old female, nicotine dependent, 40 year smoking history, quit in October 2019, with recently diagnosed -poorly differentiated squamous cell CA left lung, status post left upper lobectomy on 12/31/2019, presented to the ER with complaints of increased foul-smelling draining from prior lobectomy incision sites. Patient had seen cardiothoracic surgeon Dr. Wilkins yesterday, started on oral Keflex. Afebrile, WBC12, vital signs stable. Hemoglobin 8.3, sodium 131, potassium 3.1, magnesium 1.5. Alkaline phosphatase mildly elevated 134. Chest x-ray reporting known left hydropneumothorax, trachea midline, right lung clear. EKG reporting normal sinus rhythm, lateral infarct, age undet ermined. Troponin negative 1. Denies chest pain, palpitations or shortness of breath. Denies lightheadedness, dizziness or focal deficits. 01/30/2020: The patient was not discharged last night as a potassium of return to normal. She does have a small leukocytosis which may be consistent with her recent surgeries and lung cancer, however a repeat is pending for this morning. I discussed the case currently with thoracic surgery and they felt that because of the white count, Keflex and discharged to be held. We discussed pulmonology consult which was done. That is in progress and they had ordered a CT chest showing an air-fluid level and dense consolidation remainder of the lung left lo be after left upper lobectomy. The margins suggested infection. Currently she's been placed on meropenem. Her wound continues to drain. Cultures are pending, but currently show no growth. He denies any significant chest pains, pressures, or shortness of breath this time. She denies any nausea or vomiting. She reports her appetite is little bit improved. She had not been eating well recently due to her cancer and treatment. Potassium this morning is 3.2. 01/31/2020: Her case was discussed with vascular surgery, they will plan a a large debridement of her chest wound in the next 48 hours. She remains on amiodarone and Elequis for anticoagulation due to atrial fibrillation. She continues on meropenem and vancomycin for her Lung empyema after robotically assisted left upper lobectomy for squamous cell carcinoma. He remains on bisoprolol for blood pressure control, but it remains somewhat elevated. Hemoglobin is dropped from 8.3 down to 6.4. A stat repeat is now 6.9. Her plat elets continue to be elevated, most likely reactive, now 1044. She remains hyponatremic at 133. She denies any significant chest pains, pressures, or shortness of breath other than with exertion. She denies any significant nausea or vomiting. Staff reports she is complaining some vaginal itching and irritation. Potassium is now up to 4.2 today. 02/01/2020 Wound cultures reporting gram-positive bacilli isolated. Maintained on vancomycin, Merrem. Continues having purulent drainage from lateral left chest incision site. Tested negative for coronavirus. Afebrile, WBC WNL. Hemoglobin 8.2. Telemetry sinus rhythm. Denies chest pain, palpitations. 02/02/2020 received Eliquis yesterday, surgery, rescheduled for tomorrow for 02/03/20. Hypertensive, hydralazine initiated yesterday. Drainage continues. Afebrile, WBC within normal limits. Maintaining O2 sats in the 90s on room air. Hemoglobin 10.1. 02/03/2020 NPO, Eliquis remains on hold. OR pending. Hypertensive. Hemoglobin 8.8. Continues maintaining O2 sats in the mid 90s on room air. Afebrile, WBC WNL. 02/04/2020 yesterday underwent left thoracotomey. total lung decortication, pectoralis major pedicle flap transposition into the left pleural space, cryoablation of the intercostal nerves, with placement of 3 left pleural chest tubes,tolerated procedure well. Left pleural chest tube insertion sites discomfort. Maintaining O2 sats in the 90s on room air. Incentive spirometer up to 1000. Maintained on vancomycin, Merrem Chest x-ray reporting surgical changes, chest tubes, complete opacified left hemothorax with mediastinal shift, improving subcutaneous emphysema. Eliquis remains on hold. Wound culture rep orting gram-positive bacilli. Telemetry sinus bradycardia. Hemoglobin 7.9, received 1 unit postop of packed RBCs in addition to IV fluid resuscitation, albumin. Borderline hypotension with systolic blood pressures in the low 90s, MAP 61. 02/05/2020 evaluated by infectious disease with antibiotics adjusted. Currently maintained on Rocephin and Flagyl. Renal function improving, creatinine down to 1.27. Hemoglobin down to 7,(EBL 300 of recent surgery) Maintaining O2 sats in the 90s on room air. Chest x-ray reporting 3 left-sided chest tubes, some subcutaneous emphysema along the left hemothorax, some increasing patchy opacity in the periphery of the right mid and lower lung, continued complete whiteout of the left hemithorax. Sodium 132. Yesterday hypotensive, requiring albumin, antihypertensives held. Currently systolic blood pressure in the 130s reported per staff without antihypertensives on board. 02/08/2020 maintaining O2 sats in the 90s on room air. Hemoglobin 8. M aintained on Rocephin and Flagyl . Chest x-ray reporting worsening multifocal alveolar right-sided airspace disease, confluent .Wound cultures positive for Actinomyces odontolyticus. Scheduled for PICC line placement today. Complains of left chest tubes insertion sites discomfort. 02/09/2020 Yesterday went down for PICC line, wearing 2 L nasal cannula, attempted to lie flat, went into respiratory distress, midline placed instead .O2 requirement significantly increased up to 50% airvo.Chest CT ordered yesterday, not completed as patient unable to lie flat.Maintaining O2 sats in the high 90s on 50% high flow/Airvo. Nonproductive cough. Chest x-ray reporting 3 chest tubes remain in place with near complete whiteout of the left hemothorax, very small portions of aerated lung remain unchanged. Right-sided airspace disease similar to minimally less confused. Received a dose of Levaquin yesterday as per ID in addition to vancomycin added to antibiotic regimen of Rocephin and Flagyl .creatinine 0.77 .No nausea, vomiting or diarrhea. Positive bowel movement yesterday. Blood sugars controlled. Afebrile, normal WBC. Sputum culture ordered. Hemoglobin 7.4. Wound VAC placed yesterday. Pro- calcitonin level trending down. Denies chest pain, palpitations. Telemetry sinus rhythm. Objective - Vital Signs Vital signs: Vital Signs Temp 97.7 F 02/09/20 04:00 Pulse 80 02/09/20 08:02 Resp 20 02/09/20 04:00 BP 120/67 02/09/20 04:00 Pulse Ox 98 02/09/20 07:48 Intake & Output 02/08/20 02/09/20 02/09/20 18:59 06:59 18:59 Intake Total 360 Output Total 355 Balance 360 -355 Weight 67.9 kg Intake: Oral 360 Output: Chest Tube Drainage 355 Chest Tube Left Lateral 205 Chest Chest Tube Left Posterior 150 Chest Other: Voiding Method Toilet # Voids 1 1 ABP, PAP, CO, CI - Last Documented Arterial Blood Pressure 170/95 - Exam GENERAL: Sitting up in chair, no acute distress NECK: No JVD. No thyroid enlargement. No LNs CARDIOVASCULAR: S1, S2 regular. No murmur RESPIRATION: Nonlabored. Breath sounds diminished. Occasional scattered fine crackles. Left pleural chest tubes 3 to waterseal with serosanguineous drainage.wound VAC dressing with minimal serosanguineous drg, clean dry and intact. ABDOMEN: Soft, nontender . No guarding. no masses palpable. Positive Bowel sounds. LEGS: No edema, wearing knee-high JOHAN hose. no swelling. No clubbing, no cyanosis PSYCHIATRY: Alert and oriented X3, mood and affect normal. NERVOUS SYSTEM: Cranial N 2-12 grossly normal. Moves all 4 limbs. No focal deficits. Strength and sensation grossly intact. Skin: no rashes. Microbiology 02/03/20 15:46 Other - Other Gram Stain - Final 02/03/20 15:46 Other - Other Wound Culture - Final Actinomyces odontolyticus 02/03/20 15:46 Other - Other Anaerobic Culture - Final 01/29/20 09:00 Chest Gram Stain - Final 01/29/20 09:00 Chest Wound Culture - Final Actinomyces odontolyticus - Labs CBC & Chem 7: 02/09/20 05:55 02/09/20 05:55 Labs: Abnormal Lab Results - Last 24 Hours (Table) 02/08/20 02/08/20 02/08/20 Range/Units 06:58 11:36 16:24 RBC (3.80-5.40) m/uL Hgb (11.4-16.0) gm/dL Hct (34.0-46.0) % MCHC (31.0-37.0) g/dL RDW (11.5-15.5) % Plt Count (150-450) k/uL Neutrophils # (1.3-7.7) k/uL Lymphocytes # (1.0-4.8) k/uL Sodium (137-145) mmol/L Glucose (74-99) mg/dL POC Glucose (mg/dL) 222 H 146 H (75-99) mg/dL Calcium (8.4-10.2) mg/dL Procalcitonin 0.31 H (0.02-0.09) ng/mL 02/08/20 02/09/20 02/09/20 Range/Units 20:48 05:55 05:55 RBC 2.80 L (3.80-5.40) m/uL Hgb 7.4 L (11.4-16.0) gm/dL Hct 24.0 L (34.0-46.0) % MCHC 30.9 L (31.0-37.0) g/dL RDW 16.3 H (11.5-15.5) % Plt Count 756 H (150-450) k/uL Neutrophils # 8.2 H (1.3-7.7) k/uL Lymphocytes # 0.9 L (1.0-4.8) k/uL Sodium 136 L (137-145) mmol/L Glucose 126 H (74-99) mg/dL POC Glucose (mg/dL) 138 H (75-99) mg/dL Calcium 8.1 L (8.4-10.2) mg/dL Procalcitonin (0.02-0.09) ng/mL 02/09/20 Range/Units 06:05 RBC (3.80-5.40) m/uL Hgb (11.4-16.0) gm/dL Hct (34.0-46.0) % MCHC (31.0-37.0) g/dL RDW (11.5-15.5) % Plt Count (150-450) k/uL Neutrophils # (1.3-7.7) k/uL Lymphocytes # (1.0-4.8) k/uL Sodium (137-145) mmol/L Glucose (74-99) mg/dL POC Glucose (mg/dL) 140 H (75-99) mg/dL Calcium (8.4-10.2) mg/dL Procalcitonin (0.02-0.09) ng/mL Assessment and Plan Assessment: (1)Empyema of the left pleural space ,status post left thoracotomy, total lung decortication, pectoralis major pedicle flap into left pleural space, cryoablation of the intercostal nerves. Cultures reporting actinomyces. Current Visit: Yes Status: Acute Priority: High Code(s): J94.8 - OTHER SPECIFIED PLEURAL CONDITIONS SNOMED Code(s): 62638124 (2) Acute respiratory failure secondary to the above, worsened, requiring 50% Airvo, (3) Essential (primary) hypertension Current Visit: No Status: Chronic Priority: Medium Code(s): I10 - ESSENTIAL (PRIMARY) HYPERTENSION SNOMED Code(s): 60734699 (4) Hypokalemia, currently resolved Current Visit: Yes Status: Acute Priority: High Code(s): E87.6 - HYPOKALEMIA SNOMED Code(s)06209372 (5) Acute post op blood loss anemia , expected, status post transfusion and packed RBCs Current Visit: Yes Status: Chronic Priority: Medium Code(s): D50.9 - IRON DEFICIENCY ANEMIA, UNSPECIFIED SNOMED Code(s): 640051863 (6)Poorly differentiated squamous cell CA, left upper lobe Current Visit: Yes Status: Acute Code(s): C34.90 - MALIGNANT NEOPLASM OF UNSP PART OF UNSP BRONCHUS OR LUNG SNOMED Code(s): 338139724 (7) S/P lobectomy of the left upper lung , 12/31/2019 Current Visit: Yes Status: Chronic Priority: Low Code(s): Z90.2 - ACQUIRED ABSENCE OF LUNG [PART OF] SNOMED Code(s): 51689391915227483 (8) hypomagnesemia (9) Hyponatremia Current Visit: Yes Status: Acute Code(s): E87.1 - HYPO-OSMOLALITY AND HYPONATREMIA SNOMED Code(s): 05172968 (10)Major depressive disorder, recurrent, moderate Current Visit: No Status: Acute Code(s): F33.1 - MAJOR DEPRESSIVE DISORDER, RECURRENT, MODERATE SNOMED Code(s): 103927662 (11)Type 2 diabetes mellitus without complications Current Visit: No Status: Acute Code(s): E11.9 - TYPE 2 DIABETES MELLITUS WITHOUT COMPLICATIONS SNOMED Code(s): 784558444 (12) Fibromyalgia Current Visit: Yes Status: Acute Code(s): M79.7 - FIBROMYALGIA SNOMED Code(s): 728961940 (13) hypoproteinemia (14) Paroxysmal atrial fibrillation, Eliquis on hold Current Visit: Yes Status: Chronic Priority: Medium Code(s): I48.0 - PAROXYSMAL ATRIAL FIBRILLATION SNOMED Code(s): 730714065 (15) Midline placement. Plan: Continue on current medication regime ,monitoring and symptomatic treatment. D-dimer ordered as patient unable to lay flat for VQ or computed tomography scan. Please call with d-dimer results for further orders. Anticoagulation as per cardiothoracic surgery.Sputum culture ordered, not yet collected. Maintained on IV antibiotics of vancomycin, Rocephin and Flagyl as per infectious disease. Close monitoring of blood pressure. Pain management. Smoking cessation reinforced. Prognosis guarded given multiple complex medical issues. The impression and plan of care has been dictated as directed. : I performed a history and examination of this patient, discussed the same with the dictator. I agree with the dictator's note ,documented as a scribe. Any additional findings or plans will be noted.
[2020-02-09 17:05] LABS: Glucose,Whole Blood 99 mg/dL (75-99)
[2020-02-09] MEDS: SENNOSIDES-DOCUSATE SODIUM 1 EACH TAB PO SCH (20:29)
[2020-02-09] MEDS: SODIUM CHLORIDE 0.9% 1,000 ML IV SCH (20:31)
[2020-02-09 21:07] LABS: Glucose,Whole Blood 188 mg/dL (75-99)
--- NOTE | 2020-02-09 23:13 | PN ---
PROGRESS NOTE DATE OF SERVICE: 02/09/2020 REASON FOR FOLLOWUP: Empyema and pneumonia. INTERVAL HISTORY: The patient is currently afebrile. The patient is breathing slightly comfortably compared to yesterday. The patient denies having any chest pain. Cough, but no sputum production. No nausea, no vomiting. No abdominal pain, no diarrhea. PHYSICAL EXAMINATION: Blood pressure 108/57 with a pulse of 73 temperature 97.4. She is 99% on 45% FiO2. General description is a middle-aged female up in the chair in no distress. RESPIRATORY SYSTEM: Unlabored breathing, decreased intense breath sounds. No wheeze. HEART: S1, S2. Regular rate and rhythm. ABDOMEN: Soft, no tenderness. LABS: Hemoglobin 7.1, white count 9.8. BUN of 11, creatinine 0.77. DIAGNOSTIC IMPRESSION AND PLAN: Patient with left-sided empyema, status post decortication. Culture with Actinomyces. The patient covered with Rocephin and Flagyl. Patient with question of pneumonia on the right side. Concern for possible gram-positive. Vancomycin was added yesterday and the patient did have some clinical response to continue and monitor clinical course closely. MMODL / IJN: [id number] /
[2020-02-09] MEDS: ACETAMINOPHEN TAB 500 MG TAB PO PRN (23:30)
[2020-02-10] MEDS: VANCOMYCIN 1,250 MG in SODIUM CHLORIDE 0.9% 250 ML IVPB SCH ×2 (05:40→17:35)
[2020-02-10 06:19] LABS: Glucose,Whole Blood 131 mg/dL (75-99)
[2020-02-10] MEDS: PANTOPRAZOLE 40 MG TABLET PO SCH (06:23)
[2020-02-10] MEDS: metFORMIN 500 MG TAB PO SCH (06:24)
[2020-02-10] MEDS: INSULIN ASPART (NovoLOG) 100 UNIT/ML VIAL SQ SCH ×4 (06:24→21:57)
[2020-02-10 07:00] LABS: Anisocytosis Slight; Basophils % (A) 0 %; Eosinophils # (A) 0.1 k/uL (0-0.7); Eosinophils % (A) 1 %; HCT 22.8 % (34.0-46.0); Hypochromasia Marked; Lymphocytes # (A) 0.9 k/uL (1.0-4.8); Lymphocytes % (A) 12 %; MCH 26.7 pg (25.0-35.0); MCHC 30.7 g/dL (31.0-37.0); MCV 86.9 fL (80.0-100.0); Mean Platelet Volume 6.8; Monocytes # (A) 0.3 k/uL (0-1.0); Monocytes % (A) 3 %; Neutrophils # (A) 6.3 k/uL (1.3-7.7); Neutrophils % (A) 80 %; Platelet Count 720 k/uL (150-450); Poikilocytosis Slight; RBC 2.62 m/uL (3.80-5.40); RDW 16.6 % (11.5-15.5); WBC 7.9 k/uL (3.8-10.6)
[2020-02-10 07:07] LABS: African American GFR (CKD) >90 (>60 ml/min/1.73 sqM); Anion Gap 9 mmol/L; Blood Urea Nitrogen 10 mg/dL (7-17); Calcium 7.9 mg/dL (8.4-10.2); Carbon Dioxide 26 mmol/L (22-30); Chloride 101 mmol/L (98-107); Glucose 107 mg/dL (74-99); Magnesium 1.5 mg/dL (1.6-2.3); Non-African American GFR(CKD) 87 (>60 ml/min/1.73 sqM); Potassium 3.7 mmol/L (3.5-5.1); Sodium 136 mmol/L (137-145)
[2020-02-10] MEDS ORDERED: FUROSEMIDE 10 MG/ML 4 ML VIAL IV STA (07:07)
--- NOTE | 2020-02-10 07:31 | XR ---
EXAMINATION TYPE: XR chest 1V portable DATE OF EXAM: 02/10/2020 COMPARISON: 02/01/2020 INDICATION: Short of breath TECHNIQUE: Single frontal view of the chest is obtained. FINDINGS: The heart size is indistinct. The pulmonary vasculature is borderline prominent. There is a patchy infiltrate through the mid to lower right lung field. There is complete opacificati on of the left hemithorax. 3 left-sided chest tubes are present. Some left lateral apical free air ve rsus residual lung aeration appears to be present and stable. IMPRESSION: 1. Examination appears stable from prior study. 2. Opacification of the left hemithorax. Correlate with the surgical history. 3. Patchy infiltrate remains stable on the right lung.
[2020-02-10] MEDS ORDERED: POTASSIUM CHLORIDE ER 20 MEQ TAB.ER PO SCH (08:00)
[2020-02-10] MEDS: MAGNESIUM SULFATE-D5W PMX 1 GM in DEXTROSE/WATER 1 100ML.BAG IVPB SCH ×2 (08:25→09:48)
[2020-02-10] MEDS: VALSARTAN 160 MG TAB PO SCH (08:25)
[2020-02-10] MEDS: BISOPROLOL 5 MG TAB PO SCH (08:25)
[2020-02-10] MEDS: HEPARIN SODIUM,PORCINE 5,000 UNIT/ML 1 ML VIAL SQ SCH ×2 (08:25→14:42)
[2020-02-10] MEDS: metroNIDAZOLE 500 MG TAB PO SCH ×3 (08:26→21:58)
[2020-02-10] MEDS: MAGNESIUM OXIDE 400 MG TAB PO SCH ×2 (08:26→21:57)
[2020-02-10] MEDS: traMADol 50 MG TAB PO SCH ×3 (08:26→21:58)
[2020-02-10] MEDS: DULoxetine HCL 60 MG CAPSULE.DR PO SCH (08:26)
[2020-02-10] MEDS: amLODIPine 10 MG TAB PO SCH (08:26)
[2020-02-10] MEDS: hydrALAZINE HCL 50 MG TAB PO SCH ×4 (08:26→21:57)
[2020-02-10] MEDS: ASCORBIC ACID 500 MG TAB PO SCH (08:26)
[2020-02-10] MEDS: FERROUS SULFATE 325 MG TAB PO SCH (08:28)
[2020-02-10] MEDS: ALBUTEROL NEBULIZED 2.5 MG/3 ML INHALATION PRN ×4 (09:03→20:02)
[2020-02-10] MEDS ORDERED: RX INFO: IV CONTRAST WAS GIVEN 1 EACH MISC MISCELLANE PRN (09:23)
--- NOTE | 2020-02-10 09:36 | P.PN ---
Subjective Progress Note Date: 02/10/20 Principal diagnosis: This is a 55-year-old female patient who follows with Dr. Leroy on an outpatient basis. She has a past medical history of poorly differentiated squamous cell carcinoma, status post left upper lobectomy on 12/31/2019, hypertension, hyperlipidemia, chronic tobacco abuse, type 2 diabetes mellitus, cervical cancer status post hysterectomy, anxiety and bipolar disorder. On 01/28/2020 she had a follow-up visit with Dr. Teddy Wilkins for her pathology results of her recent left upper lobectomy. Upon exam of her surgical incisions there was a fluctuant area which was painful to touch on her left chest. Subsequently she was started on oral Keflex. Yesterday morning she developed some drainage from that incision site with the fluctuant area, leaking foul smelling yellowish fluid. Her initial lab results showed a WBC count 12.0, Hgb 8.3, neutrophils 59%, positive band neutrophil percent 24 and neutrophil numbers 9.0. A chest x-ray was completed which demonstrated a normal and the left hydropneumothorax, with no significant interval changes. She was admitted to observation to determine further treatment plans and surgical incision with consultation placed to Dr. Teddy Wilkins. POD #4 left thoracotomey. total lung decortication, pectoralis major pedicle flap transposition into the left pleural space, cryoablation of the intercostal nerves. Postoperative acute blood loss anemia, an expected outcome of surgery. Postoperative hypotension, an expected outcome due to hypovolemia. On 02/04/2020 the patient was seen in follow-up at her bedside in the intensive care unit. She is sitting up to the bedside chair, she is alert, oriented 3. She is in no acute distress. Denies any complaints of shortness of breath and is complaining of some surgical type pain to her left chest tube insertion sites. She remains hemodynamically stable and is currently on no inotropic or pressor support. She did receive 2 250 mL 5% albumin and 1 unit of PRBCs last night for a hemoglobin of 7.9 and for some hypotension. Currently her blood pressure is 113/38 and her heart rate is sinus bradycardia 57 BPM. She remains with 3 left pleural chest tubes connected to low continuous wall suction -20 cm H2O. No air leak is present. Draining thin serosanguineous drainage. The anterior chest tubes drained 500 mL output since surgery and her posterior chest tube drained 130 mL output since surgery. She is achieving 1000 mL on her incentive spirometry with encouragement. Oxygen saturations are 98% on room air. Laboratory results morning show a WBC count 13.0, hemoglobin 7.9, platelets 515, BUN 14, creatinine 1.36 and magnesium 1.5. A repeat chest x-ray was completed this morning which demonstrated left-sided surgical changes with chest tubes and complete opacified left hemithorax without mediastinal shift. It also demonstrated improving overlying subcutaneous emphysema. She does have a Nolasco catheter in place for accurate I's and O's. On 02/05/2020 the patient was seen in follow-up at her bedside in the intensive care unit. She is currently laying in bed comfortably, she is awake, alert and oriented 3. She is in no acute distress and remained hemodynamically stable. Her hypotension is resolved and currently her blood pressure is 127/81 mmHg and is on no inotropic or pressor support. She denies any complaints of shortness of breath and reports her pain is well controlled with the current when necessary orders. Oxygen saturations are 98% on room air and she is achieving 1000 mL on her incentive spirometry. Chest x-ray was completed this morning which shows 3 left-sided chest tubes with continued complete whiteout of the left hemithorax and the patchy opacity in the periphery of the right mid lower lung. Laboratory results today show WBC 10.6, hemoglobin 7.0, platelets 516, BUN 19, creatinine 1.27 and magnesium 2.2. Her wound culture from her left chest completed on 01/29/2020 showed Actinomyces odontolyticus, infectious disease is following and she is currently on Rocephin and Flagyl for antibiotic coverage. Wound care was completed to her superficial left chest wound this morning and was packed with iodoform gauze. She remains with 3 left pleural chest tubes in place to low continuous wall suction -20 cm H2O. Small intermittent airleak present to her posterior chest tube. The chest tubes are d raining thin serosanguineous drainage with 80 mL out of her anterior chest tubes in the last 8 hours and 280 mL output in the last 24 hours. 140 mL output out of her posterior chest tube in the last 8 hours and 200 mL output in the last 24 hours. Right radial arterial line remains in place and functioning. On 02/06/2020 patient was seen in follow-up at her bedside in the intensive care unit. She is sitting up to the bedside chair, and is in no acute distress. The patient is awake, alert and oriented 3. She is hemodynamically stable and has been afebrile the last 24 hours. Currently denies any complaints of pain or shortness of breath. She does report that she had some episodes of surgical type pain to her left chest throughout the night rating her pain 5 out of 10 but was well controlled with the pain medication she received. With assistance the patient was ambulated in her room and did a round 5 laps of the length of room with minimal assistance. Her left pleural chest tubes remain in place to low continuous wall suction -20 cm H2O. She did have a positive air leak once the dressings were removed from her chest tube sites today. The airleak to the chest tubes did resolve once her dressings were reapplied. The chest tubes are draining thin serosanguineous drainage with her posterior chest tube draining 170 mL output the last 24 hours, and her anterior chest tubes draining 160 mL output in the last 24 hours. The dressing to her left chest superficial wound was changed and the wound was packed with iodoform gauze and covered with 4 x 4 gauze and secured with tape. The wound appeared clean with scant serosanguineous drainage. A chest x-ray was completed this morning which showed continuing complete opacity of the left lung, and improving subcutaneous emphy sema on the left and some worsening peripheral airspace disease on the right. Oxygen saturations are 97% on 2 L nasal cannula and she is achieving 1000 mL on her incentive spirometry. Laboratory results today show a WBC count 12.6, hemoglobin 7.2, platelets 613, sodium 135, venous CO2 20, BUN 19, and a creatinine of 0.94. She is transfer orders in place for the cardiac stepdown unit and is waiting for a bed. On 02/07/2020 the patient was seen in follow-up at her bedside in the cardiac stepdown unit. Currently she is sitting up to the bedside chair, she is in no acute distress. She remained hemodynamically stable, has been afebrile in the last 24 hours, oxygen saturation are 97% on 2 L nasal cannula. Denies any complaints of pain at this time or shortness of breath. She did ambulate in her room and completed about 5 laps with minimal assistance and had some shortness of breath with exertion, although recovered quickly. Left pleural chest tubes remain in place to low continuous wall suction -20 cm H2O. Intermittent air leak is present. Posterior chest tube drained 180 mL output in the last 24 hours, and her anterior chest tubes drained 100 mL in the last 24 hours of thin serosanguineous drainage. She is achieving 1000 mL on her incentive spirometry with encouragement. Wound care was completed to her left chest superficial wound with packing her wound with 1 inch iodoform gauze, covered with 4 x 4 gauze and secured with tape. The wound appeared with pink granulating tissue and scant serosanguineous drainage. A chest x-ray was completed this morning and per the report shows a small air fluid level in the left apex, continuing patchy bilateral infiltrates which may be slightly worsened from her previous exam yesterday. Laboratory results today show a WBC count trending down 10.7, hemoglobin 7.8, platelets 668, BUN 15 and creatinine 0.84. Her wound culture from her left chest completed on 01/29/2020 showed Actinomyces odontolyticus, and infectious disease is following, she is currently on Rocephin and Flagyl for antibiotic coverage. Wound Gram stain obtained on 02/03/2020 continues to show no organisms seen and the aerobic wound culture shows no growth after 24 hours. On 02/08/2020 the patient was seen in follow-up at her bedside on the cardiac [facility] unit. She is currently sitting up to the bedside chair, she is in no acute distress. Currently she denies any complaints of pain although reports she has had some episodes of shortness of breath off and on throughout the day. She hemodynamically stable and has been afebrile in the last 24 hours. She was on 2 L nasal cannula at this morning with oxygen saturations 97%, although she went for a PICC line placement and what the patient is saying she developed some increased shortness of breath and they were only able to do a midline. Currently, she is on BiPAP support with 60% FiO2 and oxygen saturations are 96%. Dr. Wilkins was present at her bedside and placed a wound VAC to her left chest superficial wound. The wound appears with some some pink granulated tissue and scant serosanguineous drainage. She remains with 3 left pleural chest tubes to low continuous wall suction -20 cm H2O. No air leak is present. Draining thin serosanguineous drainage with her anterior chest tubes draining 70 mL output in the last 24 hours and her posterior chest tube draining 90 mL output in the last 24 hours.a chest x-ray was completed this morning which the report demonstrates stable appearance to the left hemithorax with 3 chest tubes and only a very small portion of aerated lung on the left and progressively more confluence airspace disease throughout the right lung. Her wound culture from her left chest completed on 01/29/2020 showed Actinomyces odontolyticus, and infectious disease is following, she is currently on Rocephin and Flagyl for antibiotic coverage. laboratory results today show a WBC count 10.4, hemoglobin 8.0, platelets 778, BUN 12 and react 0.80. On 02/09/2020 patient was seen in follow-up at her bedside on the cardiac stepdown unit. She is currently sitting up to the bedside chair and she is in no acute distress. She is complaining of episodes of shortness of breath and denies any complaints of pain at this time. A computed tomography scan of her chest was ordered yesterday and she felt like she could not undergo the CT of her chest due to her shortness of breath and inability to lie flat. She remains hemodynamically stable, afebrile and her oxygen saturations on high flow oxygen of 50% are 99%. A chest x-ray was completed this morning which shows 3 chest tubes remaining in place on the left with near complete whiteout of the left hemithorax, with a very small portion of aerated lung, it also demonstrated right-sided airspace disease similar to minimally last to fluid. Wound VAC dressing remains clean, dry and in place to her left chest superficial wound with scant serosanguineous drainage. Left pleural chest tubes remain in place and are to water seal. No air leak is present. Draining thin serosanguineous drainage with her posterior chest tube draining 100 mL output last 24 hours, and her anterior chest tubes draining 30 mL in the last 24 hours. A repeat pro- calcitonin level was drawn yesterday and was 0.31 which is trending down from the previous pro-calcitonin level. Laboratory results today show a WBC count 9.8, hemoglobin 7.4, platelets 756, BUN 11 and creatinine 0.77. The wound culture from her left chest completed on 01/29/2020 and her wound culture obtained in the operating room on 02/03/2020 both resulted Actinomyces odontolyticus. She remains on Rocephin and Flagyl for antibiotic coverage which has been managed by infectious disease. She did receive 1 dose of vancomycin and Levaquin yesterday as well. She has been ambulating in her room with minimal assistance. Remote telemetry showing normal sinus rhythm heart rate 85. The patient was seen in follow-up today 02/10/2020 at her bedside on the cardiac stepdown unit. She is resting comfortably in bed, she is alert and oriented 3 and is in no acute distress. Today she reports that her shortness of breath is somewhat improved from yesterday and is currently denying any complaints of pain. Oxygen saturations are 100% with high flow oxygen support of 45%. She remained hemodynamically stable and has been afebrile in the last 24 hours. A c omputed tomography scan of her chest was ordered on 02/08/2020 due to her episodes of shortness of breath requiring placement of high flow oxygen. Her computed tomography scan of her chest is still pending. A chest x-ray was completed today and according to the report remains to have opacification of the left hemithorax with continued patchy infiltrates to her right lung. She is achieving 1000 mL on her incentive spirometry with encouragement. Remote telemetry showing normal sinus rhythm heart rate 88. Her wound VAC dressing remains clean, dry and in place to her left chest and the dressing was changed this morning with measurements of 4.4 x 1.5 x 1.5 cm. The wound bed is pink with granulating tissue. She remains to have 3 left pleural chest tubes in place to water seal. No air leak is present. The chest tubes are draining thin serosanguineous drainage with 200 mL output in the last 24 hours from her posterior chest tube and 50 mL output in the last 24 hours from her anterior chest tubes. Currently remains on IV Rocephin, vancomycin and oral Flagyl as her wound culture from her left chest completed on 01/29/2020 and her wound culture obtained in the operating room on 02/03/2020 both resulted Actinomyces odontolyticus. The antibiotics are being managed by infectious disease. Laboratory results were reviewed this morning and shows her WBC count continues to be trending down and is 7.9 this morning, her hemoglobin is 7.0, platelets 720, potassium 3.7, magnesium 1.5, BUN 10 and creatinine 0.77. She reports she has been diligent in using her incentive spirometry in the last 24 hours and has ambulated in her room a couple of times with assistance from nursing staff. Objective - Vital Signs Vital signs: Vital Signs Temp 98.5 F 02/10/20 08:00 Pulse 88 02/10/20 09:03 Resp 18 02/10/20 08:00 BP 110/61 02/10/20 08:00 Pulse Ox 100 02/10/20 08:00 Intake & Output 02/09/20 02/10/20 02/10/20 18:59 06:59 18:59 Intake Total 300 490 Output Total 181 300 Balance 119 190 Weight 67 kg Intake: Intake, IV Titration 490 Amount Sodium Chloride 0.9% 1, 240 000 ml @ 20 mls/hr IV . Q24H [facility] Rx#:[id number] Vancomycin 1,250 mg In 250 Sodium Chloride 0.9% 250 ml @ 125 mls/hr IVPB Q12H [facility] Rx#:[id number] Oral 300 Output: Chest Tube Drainage 180 Chest Tube Left Lateral 40 Chest Chest Tube Left Posterior 140 Chest Urine 1 300 Other: Voiding Method Toilet Toilet # Voids 1 1 1 # Bowel Movements 1 1 ABP, PAP, CO, CI - Last Documented Arterial Blood Pressure 170/95 - Exam This is a 55-year-old pleasant female patient who is sitting up to the bedside chair in the cardiac stepdown unit. She is in no acute distress. Oxygen saturations are 100 % on high flow FiO2 of 45%. She is hemodynamically stable and afebrile. - Constitutional General appearance: Present: average body habitus, cooperative, no acute distress - EENT Eyes: Present: PERRLA, normal appearance. Absent: scleral icterus ENT: Present: hearing grossly normal, normal oropharynx. Absent: thrush - Neck Details: Neck is supple, no JVD. Neck: Absent: lymphadenopathy, thyromegaly - Respiratory Details: Lung sounds with few scattered crackles to her right lobes, diminished her bilateral bases left greater than right. Respirations are symmetrical and nonlabored. Achieving 1000 mL on her incentive spirometry. Oxygen saturations 100% on high flow FiO2 45%. - Cardiovascular Details: Regular rhythm and rate. S1 and S2 present, negative for S3, gallop or murmur. No edema present. Knee-high JOHAN hose and sequential compression devices in place for bilateral lower extremities. - Gastrointestinal Gastrointestinal Comment(s): Abdomen is soft, nontender and nondistended. Active bowel sounds present all 4 abdominal quadrants. No guarding or rigidity. No organomegaly appreciated. - Genitourinary Genitourinary Comment(s): Voiding clear narendra urine. - Integumentary Integumentary Comment(s): Skin is warm and dry. Positive clubbing, no cyanosis. No rash or abnormal pigmentation. Left thoracotomy incision is clean, dry and approximated with exofin dressing clean, and intact. Wound VAC dressing clean, dry and intact to her left chest superficial wound. Measuring 4.4 x 1.5 x 1.5 cm. - Neurologic Neurologic: Present: CNII-XII intact - Musculoskeletal Musculoskeletal: Present: gait normal, generalized weakness, strength equal bilaterally - Psychiatric Psychiatric: Present: A&O x's 3, appropriate affect, intact judgment & insight - Allied health notes Allied health notes reviewed: nursing - Labs CBC & Chem 7: 02/10/20 06:12 02/10/20 06:12 Labs: Abnormal Lab Results - Last 24 Hours (Table) 02/09/20 02/09/20 02/09/20 Range/Units 05:55 11:47 14:02 RBC (3.80-5.40) m/uL Hgb (11.4-16.0) gm/dL Hct (34.0-46.0) % MCHC (31.0-37.0) g/dL RDW (11.5-15.5) % Plt Count (150-450) k/uL Lymphocytes # (1.0-4.8) k/uL D-Dimer 1.60 H (<0.60) mg/L FEU Sodium (137-145) mmol/L Glucose (74-99) mg/dL POC Glucose (mg/dL) 140 H (75-99) mg/dL Calcium (8.4-10.2) mg/dL Magnesium (1.6-2.3) mg/dL Procalcitonin 1.10 H (0.02-0.09) ng/mL 02/09/20 02/10/20 02/10/20 Range/Units 21:06 06:12 06:12 RBC 2.62 L (3.80-5.40) m/uL Hgb 7.0 L (11.4-16.0) gm/dL Hct 22.8 L (34.0-46.0) % MCHC 30.7 L (31.0-37.0) g/dL RDW 16.6 H (11.5-15.5) % Plt Count 720 H (150-450) k/uL Lymphocytes # 0.9 L (1.0-4.8) k/uL D-Dimer (<0.60) mg/L FEU Sodium 136 L (137-145) mmol/L Glucose 107 H (74-99) mg/dL POC Glucose (mg/dL) 188 H (75-99) mg/dL Calcium 7.9 L (8.4-10.2) mg/dL Magnesium 1.5 L (1.6-2.3) mg/dL Procalcitonin (0.02-0.09) ng/mL 02/10/20 Range/Units 06:17 RBC (3.80-5.40) m/uL Hgb (11.4-16.0) gm/dL Hct (34.0-46.0) % MCHC (31.0-37.0) g/dL RDW (11.5-15.5) % Plt Count (150-450) k/uL Lymphocytes # (1.0-4.8) k/uL D-Dimer (<0.60) mg/L FEU Sodium (137-145) mmol/L Glucose (74-99) mg/dL POC Glucose (mg/dL) 131 H (75-99) mg/dL Calcium (8.4-10.2) mg/dL Magnesium (1.6-2.3) mg/dL Procalcitonin (0.02-0.09) ng/mL - Imaging and Cardiology Chest x-ray: report reviewed, image reviewed Assessment and Plan Assessment: 1. Empyema left chest status post left upper lobectomy, status post left thoracotomy, total lung decortication, pectoralis major pedicle flap transposition into the left pleural space, cryoablation of intercostal nerves. 2. Superficial wound, with culture from 01/29/2020 positive for Actinomyces odontolyticus. Currently on Rocephin and Flagyl managed by infectious disease 3. History of poorly differentiated squamous cell carcinoma, status post left upper lobectomy on 12/31/2019 4. History of hypertension 5. History of hyperlipidemia 6. Previous tobacco dependence 7. Type 2 diabetes 8. History of cervical cancer status post hysterectomy 9. History of anxiety/bipolar disorder 10. Postoperative acute blood loss anemia, an expected outcome 11. Postoperative hypotension, an expected outcome, resolved Plan: 1. Keep left pleural chest tubes to water seal. Continue to monitor accurate I&O. 2. Encourage use of her incentive spirometry 10 times an hour while awake. 3. Continue to encourage smoking cessation. 4. Continue to hold Eliquis. No further episodes of atrial fibrillation. Continue subcu heparin /knee-high JOHAN hose and sequential compression devices for DVT prophylaxis. 5. Dressing changed to her left chest today using black granufoam sponge and connected to the wound VAC. Continue to change wound VAC Saturday. 6. Culture obtained in the operating room 02/03/2020 shows Actinomyces odont olyticus. Initial culture from her left chest wound from 01/29/2020 also showed Actinomyces odontolyticus continue Rocephin, vancomycin and by mouth Flagyl managed by infectious disease. The patient will need a PICC line for outpatient antibiotic treatment, she went for a PICC line placement yesterday but was unable to lay flat due to her shortness of breath. Reschedule PICC line for when patient is able to tolerate laying flat. 7. GI and DVT prophylaxis. 8. Out of bed for all meals. Increase activity as tolerated with walking in the room. Physical therapy following. 9. Continue ferrous sulfate 325 mg by mouth daily at lunch and vitamin C 500 mg by mouth daily. 10. Continue to monitor daily labs and chest x-rays. Replace electrolytes per protocol. 11. Obtain a computed tomography scan with contrast of her chest for increased shortness of breath and increase oxygen requirements when able to tolerate. 12. Lasix 40 mg IV 1 now. 13. The patient's Gustavo was updated on her care today will present at her bedside, per phone. 14. Bronchodilators and weaning of oxygen per pulmonary medicine recommendations. 15. More recommendations to follow based on patient's clinical course. Time with Patient: Greater than 30
--- NOTE | 2020-02-10 11:09 | CT ---
EXAMINATION TYPE: CT chest w con DATE OF EXAM: 02/10/2020 COMPARISON: Chest x-ray 02/10/2020, CT chest 01/30/2020 HISTORY: SOB, postoperative Lt thoractomy CT DLP: 247.3 mGycm, Automated exposure control for dose reduction was used. CONTRAST: Performed injected with 100 mL of Isovue 300. TECHNIQUE: Axial images were obtained at 5 mm thick sections. Reconstructed images are reviewed on [employer] computer in the coronal plane. FINDINGS: Portion of the thyroid visualized is normal. Small amount of residual airspace is within the left upper lung field. There is a large cavity with a n air-fluid level in the left hemithorax apex. Multiple chest tubes are present on the left. Patchy infiltrates to the right lung. Correlate for infectious etiologies such as atypical pneumonia. Pulmonary edema could be considered. There is a small right pleural effusion present. There is a 1.2 cm lymph node in the pretracheal space just above the joan. Additional nonenlarged pretracheal lymph nodes. The ascending aorta diameter at the level of the main pulmonary artery is 3. 2 cm. The main pulmonary artery diameter at the bifurcation is 2.[address] sections are obtained through the upper abdomen. Abdomen is essentially unremarkable. IMPRESSIONS: 1. Small amount of residual airspace disease on the left. The previous cavitary lesion is significant ly smaller. 2. Multiple left-sided chest tubes present. 3. Groundglass opacities throughout the lung cornejo developing from comparison study. Consider atypic al pneumonia and pulmonary edema within the differential. Follow-up is recommended.
[2020-02-10 11:54] LABS: Glucose,Whole Blood 151 mg/dL (75-99)
--- NOTE | 2020-02-10 13:46 | P.PN ---
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 Recent history left upper lobectomy for poorly differentiated squamous cell carcinoma This is a 55-year-old female patient who follows with Dr. Leroy on an outpatient basis. She has a past medical history of poorly differentiated squamous cell carcinoma, status post left upper lobectomy on 12/31/2019, hyperte nsion, hyperlipidemia, chronic tobacco abuse, type 2 diabetes mellitus, cervical cancer status post hysterectomy, anxiety and bipolar disorder. On 01/28/2020 she had a follow-up visit with Dr. Teddy Wilkins for her pathology results of her recent left upper lobectomy. Upon exam of her surgical incisions there was a fluctuant area which was painful to touch on her left chest. Subsequently she was started on oral Keflex. Yesterday morning she developed some drainage from that incision site with the fluctuant area, leaking foul smelling yellowish fluid. Her initial lab results showed a WBC count 12.0, Hgb 8.3, neutrophils 59%, positive band neutrophil percent 24 and neutrophil numbers 9.0. A chest x- ray was completed which demonstrated a normal and the left hydropneumothorax, with no significant interval changes. She was admitted to observation to determine further treatment plans and surgical incision with consultation placed to Dr. Teddy Wilkins. On 02/02/2020 patient was seen on follow-up on the fourth floor medical surgical unit. She is resting comfortably in bed, she is alert and oriented 3. Remains hemodynamically stable and is in no acute distress. She has been afebrile for the last 24 hours. Oxygen saturations are 96% on room air. Her left chest wound culture sensitivities remain pending, currently showing gram-positive bacilli. She is on meropenem and vancomycin for antibiotic coverage. Denies any complaints of shortness of breath or pain. The patient states that she had a shower this morning and that her left chest drainage site had minimal drainage from it in the last 12 hours. She was scheduled for a left thoracotomy with decortication for this morning to be performed by Dr. Teddy Wilkins. The procedure was changed and rescheduled for tomorrow 02/03/2020 as Elquis was stopped yesterday morning. Lab results today show a WBC count of 9.0, hemog lobin 10.1, and platelets 962. She is demonstrating good use of her incentive spirometry and achieving 1000 mL. On 02/03/2020 patient is seen in follow-up on general medical floor. She is calm and comfortable, vital signs are stable, room air pulse ox 96%, afebrile, respirations are nonlabored, left chest wound drainage is small amount, reddish in color today. Wound culture showed gram-positive bacilli, patient remains on combination of meropenem and vancomycin for possibility of empyema bro nchopleural fistula, patient has been scheduled for surgical decortication by Dr. Wilkins today. No acute events overnight. On 02/09/2020 patient seen in follow-up on selective care unit. Yesterday patient had episode of acute desaturation and worsening dyspnea and she was laid down flat for PICC line insertion. The procedure was not completed, patient returned to her room, she required placement on high flow oxygen, she could not tolerate BiPAP support. She was given a dose of oral Lasix, her chest x-ray yesterday showed worsening airspace disease throughout the right lung, and stable appearance of left hemithorax with 3 chest tubes with very small portion of aerated lung on the left. Patient has diuresed, she is in negative fluid balance, she is down 1.1 kg since yesterday, her proBNP came back at 4760, IV fluids have been cut back, yesterday's pro-calcitonin was trending down at 0.31, however it's back up again at 1.10, antibiotic coverage has been switched to Levaquin and vancomycin, ID service is following, patient has been afebrile. Today's labs have been reviewed on Web blood cell count of 9.8, hemoglobin of 7.4, electrolytes within normal limits, renal profile unremarkable On 02/10/2020 patient seen in follow-up on selective care unit, remains on AIRVO currently a 60 L/m, and FiO2 of 45%, and a pulse ox in the 100%, will Probably weaning FiO2 further, she has received additional dose of Lasix yesterday, she has diuresed, her weight is down by 0.9 kg since yesterday, today's chest x-ray shows improvement in the density of the patchy infiltrate in the right lung, and stable opacification of the left hemithorax with 3 left-sided chest tubes in place. She remains on antibiotics for left lung empyema with cultures positive for actinomycosis, current antibiotic coverage including Levaquin and vancomycin. ID service is following. D-dimer came back elevated at 1.66, CT chest with contrast has been obtained showing no clear evidence of pulmonary embolism, small amount of residual airspace disease on the left, and previous cavitary lesion is smaller, groundglass opacities throughout the lung cornejo likely related to us ability of pulmonary edema. Today's labs have been reviewed showing white blood cell count trending down, 7.9 on today's labs, hemoglobin 7.0, electrolytes and renal profile are unremarkable, patient has had no fever or chills, she still feels short of breath although does not appear to be in any acute distress. All 3 left-sided chest tubes including left lateral, left posterior and another left lateral are to waterseal, with serosanguineous drainage. CT surgery is following Objective - Vital Signs Vital signs: Vital Signs Temp 98.5 F 02/10/20 08:00 Pulse 80 02/10/20 12:11 Resp 18 02/10/20 10:48 BP 110/61 02/10/20 08:00 Pulse Ox 100 02/10/20 08:00 Intake & Output 02/09/20 02/10/20 02/10/20 18:59 06:59 18:59 Intake Total 300 490 236 Output Total 181 300 Balance 119 190 236 Weight 67 kg Intake: Intake, IV Titration 490 Amount Sodium Chloride 0.9% 1, 240 000 ml @ 20 mls/hr IV . Q24H [facility] Rx#:[id number] Vancomycin 1,250 mg In 250 Sodium Chloride 0.9% 250 ml @ 125 mls/hr IVPB Q12H [facility] Rx#:[id number] Oral 300 236 Output: Chest Tube Drainage 180 Chest Tube Left Lateral 40 Chest Chest Tube Left Posterior 140 Chest Urine 1 300 Other: Voiding Method Toilet Toilet # Voids 1 1 1 # Bowel Movements 1 1 ABP, PAP, CO, CI - Last Documented Arterial Blood Pressure 170/95 - Exam GENERAL EXAM: Alert, very pleasant, 55-year-old white female, on room air, currently on Airvo at 60 l/min, Fio2 of 45% comfortable in no apparent distress. HEAD: Normocephalic/atraumatic. EYES: Normal reaction of pupils, equal size. Conjunctiva pink, sclera white. NOSE: Clear with pink turbinates. THROAT: No erythema or exudates. NECK: No masses, no JVD, no thyroid enlargement, no adenopathy. CHEST: No chest wall deformity. Symmetrical expansion. Patient has 2 lateral and one left posterior chest tube with no evidence of air leak, to waterseal, with serosanguineous output. Wound VAC is in place to the left chest wall wound LUNGS: Equal air entry with no crackles, wheeze, rhonchi or dullness. CVS: Regular rate and rhythm, normal S1 and S2, no gallops, no murmurs, no rubs ABDOMEN: Soft, nontender. No hepatosplenomegaly, normal bowel sounds, no guarding or rigidity. EXTREMITIES: No clubbing, no edema, no cyanosis, 2+ pulses and upper and lower extremities. MUSCULOSKELETAL: Muscle strength and tone normal. SPINE: No scoliosis or deformity SKIN: Wound on the left posterior chest wall, with drainage of purulent serosanguineous drainage. CENTRAL NERVOUS SYSTEM: Alert and oriented -3. No focal deficits, tone is normal in all 4 extremities. PSYCHIATRIC: Alert and oriented -3. Appropriate affect. Intact judgment and insight. - Labs CBC & Chem 7: 02/10/20 06:12 02/10/20 06:12 Labs: Abnormal Lab Results - Last 24 Hours (Table) 02/09/20 02/09/20 02/10/20 Range/Units 14:02 21:06 06:12 RBC 2.62 L (3.80-5.40) m/uL Hgb 7.0 L (11.4-16.0) gm/dL Hct 22.8 L (34.0-46.0) % MCHC 30.7 L (31.0-37.0) g/dL RDW 16.6 H (11.5-15.5) % Plt Count 720 H (150-450) k/uL Lymphocytes # 0.9 L (1.0-4.8) k/uL D-Dimer 1.60 H (<0.60) mg/L FEU Sodium (137-145) mmol/L Glucose (74-99) mg/dL POC Glucose (mg/dL) 188 H (75-99) mg/dL Calcium (8.4-10.2) mg/dL Magnesium (1.6-2.3) mg/dL 02/10/20 02/10/20 02/10/20 Range/Units 06:12 06:17 11:52 RBC (3.80-5.40) m/uL Hgb (11.4-16.0) gm/dL Hct (34.0-46.0) % MCHC (31.0-37.0) g/dL RDW (11.5-15.5) % Plt Count (150-450) k/uL Lymphocytes # (1.0-4.8) k/uL D-Dimer (<0.60) mg/L FEU Sodium 136 L (137-145) mmol/L Glucose 107 H (74-99) mg/dL POC Glucose (mg/dL) 131 H 151 H (75-99) mg/dL Calcium 7.9 L (8.4-10.2) mg/dL Magnesium 1.5 L (1.6-2.3) mg/dL 02/10/20 Range/Units 12:29 RBC (3.80-5.40) m/uL Hgb (11.4-16.0) gm/dL Hct (34.0-46.0) % MCHC (31.0-37.0) g/dL RDW (11.5-15.5) % Plt Count (150-450) k/uL Lymphocytes # (1.0-4.8) k/uL D-Dimer 1.66 H (<0.60) mg/L FEU Sodium (137-145) mmol/L Glucose (74-99) mg/dL POC Glucose (mg/dL) (75-99) mg/dL Calcium (8.4-10.2) mg/dL Magnesium (1.6-2.3) mg/dL Assessment and Plan Plan: Assessment: #1. Acute empyema of the left chest, status post left thoracotomy, total lung decortication, pectoralis major pedicle flap transposition into the left pleural space, and cryoablation of the intercostal nerves, postoperative day #7 #2. Acute exacerbation of CHF, fluid overload previously documented diastolic dysfunction, from echocardiogram on 01/02/2020 EF is 55-60%, mild MR, mild TR, no evidence of PAH #3. Superficial wound, draining thin foul-smelling yellowish drainage, with blood cultures positive for gram-positive bacilli, and is on, on meropenem and vancomycin, and she is going for surgical decortication today on 02/03/[address] Wilkins. Wound cultures positive for actinomyces odontolyticus, current an tibiotic coverage is with Levaquin and vancomycin #4. History of poorly differentiated squamous cell carcinoma, status post left upper lobectomy on 12/31/2019 #5. History of hypertension #6. History of hyperlipidemia #7. Previous tobacco dependence #8. Type 2 diabetes #9. History of cervical cancer status post hysterectomy #10. History of anxiety/bipolar disorder Plan: Continue antibiotic coverage per ID service recommendations, we'll switch the patient over to regular high flow nasal cannula, continue weaning FiO2, patient will receive an additional dose of IV Lasix today, patient has been diuresed for last 2 days with improvement in oxygenation, and improvement in the appearance of airspace disease in the right lung, and groundglass opacities on the CT chest was likely related to fluid overload. Patient has been afebrile, repeat chest x-ray in the morning, CT surgery is following. We'll continue to follow patient's clinical course I performed a history & physical examination of the patient and discussed their management with my nurse practitioner, Bria Cid. I reviewed the nurse practitioner's note and agree with the documented findings and plan of care. Elizabeth ng sounds are positive for diffuse wheezes throughout the lung cornejo. The findings and the impression was discussed with the patient. I attest to the documentation by the nurse practitioner. Time with Patient: Less than 30
[2020-02-10] MEDS: SODIUM CHLORIDE 0.9% 1,000 ML IV SCH (14:24)
--- NOTE | 2020-02-10 15:28 | P.PN ---
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 Patient had seen cardiothoracic surgeon Dr. Wilkins yesterday, started on oral Keflex. Afebrile, WBC12, vital signs stable. Hemoglobin 8.3, sodium 131, potassium 3.1, magnesium 1.5. Alkaline phosphatase mildly elevated 134. Chest x-ray reporting known left hydropneumothorax, trachea midline, right lung clear. EKG reporting normal sinus rhythm, lateral infarct, age undet ermined. Troponin negative 1. Denies chest pain, palpitations or shortness of breath. Denies lightheadedness, dizziness or focal deficits. 01/30/2020: The patient was not discharged last night as a potassium of return to normal. She does have a small leukocytosis which may be consistent with her recent surgeries and lung cancer, however a repeat is pending for this morning. I discussed the case currently with thoracic surgery and they felt that because of the white count, Keflex and discharged to be held. We discussed pulmonology consult which was done. That is in progress and they had ordered a CT chest showing an air-fluid level and dense consolidation remainder of the lung left lo be after left upper lobectomy. The margins suggested infection. Currently she's been placed on meropenem. Her wound continues to drain. Cultures are pending, but currently show no growth. He denies any significant chest pains, pressures, or shortness of breath this time. She denies any nausea or vomiting. She reports her appetite is little bit improved. She had not been eating well recently due to her cancer and treatment. Potassium this morning is 3.2. 01/31/2020: Her case was discussed with vascular surgery, they will plan a a large debridement of her chest wound in the next 48 hours. She remains on amiodarone and Elequis for anticoagulation due to atrial fibrillation. She continues on meropenem and vancomycin for her Lung empyema after robotically assisted left upper lobectomy for squamous cell carcinoma. He remains on bisoprolol for blood pressure control, but it remains somewhat elevated. Hemoglobin is dropped from 8.3 down to 6.4. A stat repeat is now 6.9. Her plat elets continue to be elevated, most likely reactive, now 1044. She remains hyponatremic at 133. She denies any significant chest pains, pressures, or shortness of breath other than with exertion. She denies any significant nausea or vomiting. Staff reports she is complaining some vaginal itching and irritation. Potassium is now up to 4.2 today. 02/01/2020 Wound cultures reporting gram-positive bacilli isolated. Maintained on vancomycin, Merrem. Continues having purulent drainage from lateral left chest incision site. Tested negative for coronavirus. Afebrile, WBC WNL. Hemoglobin 8.2. Telemetry sinus rhythm. Denies chest pain, palpitations. 02/02/2020 received Eliquis yesterday, surgery, rescheduled for tomorrow for 02/03/20. Hypertensive, hydralazine initiated yesterday. Drainage continues. Afebrile, WBC within normal limits. Maintaining O2 sats in the 90s on room air. Hemoglobin 10.1. 02/03/2020 NPO, Eliquis remains on hold. OR pending. Hypertensive. Hemoglobin 8.8. Continues maintaining O2 sats in the mid 90s on room air. Afebrile, WBC WNL. 02/04/2020 yesterday underwent left thoracotomey. total lung decortication, pectoralis major pedicle flap transposition into the left pleural space, cryoablation of the intercostal nerves, with placement of 3 left pleural chest tubes,tolerated procedure well. Left pleural chest tube insertion sites discomfort. Maintaining O2 sats in the 90s on room air. Incentive spirometer up to 1000. Maintained on vancomycin, Merrem Chest x-ray reporting surgical changes, chest tubes, complete opacified left hemothorax with mediastinal shift, improving subcutaneous emphysema. Eliquis remains on hold. Wound culture rep orting gram-positive bacilli. Telemetry sinus bradycardia. Hemoglobin 7.9, received 1 unit postop of packed RBCs in addition to IV fluid resuscitation, albumin. Borderline hypotension with systolic blood pressures in the low 90s, MAP 61. 02/05/2020 evaluated by infectious disease with antibiotics adjusted. Currently maintained on Rocephin and Flagyl. Renal function improving, creatinine down to 1.27. Hemoglobin down to 7,(EBL 300 of recent surgery) Maintaining O2 sats in the 90s on room air. Chest x-ray reporting 3 left-sided chest tubes, some subcutaneous emphysema along the left hemothorax, some increasing patchy opacity in the periphery of the right mid and lower lung, continued complete whiteout of the left hemithorax. Sodium 132. Yesterday hypotensive, requiring albumin, antihypertensives held. Currently systolic blood pressure in the 130s reported per staff without antihypertensives on board. 02/08/2020 maintaining O2 sats in the 90s on room air. Hemoglobin 8. M aintained on Rocephin and Flagyl . Chest x-ray reporting worsening multifocal alveolar right-sided airspace disease, confluent .Wound cultures positive for Actinomyces odontolyticus. Scheduled for PICC line placement today. Complains of left chest tubes insertion sites discomfort. 02/09/2020 Yesterday went down for PICC line, wearing 2 L nasal cannula, attempted to lie flat, went into respiratory distress, midline placed instead .O2 requirement significantly increased up to 50% airvo.Chest CT ordered yesterday, not completed as patient unable to lie flat.Maintaining O2 sats in the high 90s on 50% high flow/Airvo. Nonproductive cough. Chest x-ray reporting 3 chest tubes remain in place with near complete whiteout of the left hemothorax, very small portions of aerated lung remain unchanged. Right-sided airspace disease similar to minimally less confused. Received a dose of Levaquin yesterday as per ID in addition to vancomycin added to antibiotic regimen of Rocephin and Flagyl .creatinine 0.77 .No nausea, vomiting or diarrhea. Positive bowel movement yesterday. Blood sugars controlled. Afebrile, normal WBC. Sputum culture ordered. Hemoglobin 7.4. Wound VAC placed yesterday. Pro- calcitonin level trending down. Denies chest pain, palpitations. Telemetry sinus rhythm. 02/10/2020 currently on 45% high flow nasal cannula, maintaining O2 sats of 100%. Hemoglobin down to 7. Incentive spirometer up to 1000. Chest x-ray reporting complete opacification of the left hemothorax, 3 left-sided chest tubes, some left lateral apical free air versus residual lung aeration-stable, patchy infiltrate right lung-stable. Denies increase in shortness of breath. Denies chest pain, palpitations. Denies lightheadedness, dizziness or focal deficits. Afebrile, normal WBC. Magnesium 1.5. Blood sugars controlled. As patient was unable to proceed with CT yesterday, d-dimer ordered, elevated 1.6. Patient is going down this morning to attempt CT with contrast. Objective - Vital Signs Vital signs: Vital Signs Temp 98.5 F 02/10/20 08:00 Pulse 88 02/10/20 09:03 Resp 18 02/10/20 08:00 BP 110/61 02/10/20 08:00 Pulse Ox 100 02/10/20 08:00 Intake & Output 02/09/20 02/10/20 02/10/20 18:59 06:59 18:59 Intake Total 300 490 Output Total 181 300 Balance 119 190 Weight 67 kg Intake: Intake, IV Titration 490 Amount Sodium Chloride 0.9% 1, 240 000 ml @ 20 mls/hr IV . Q24H [facility] Rx#:[id number] Vancomycin 1,250 mg In 250 Sodium Chloride 0.9% 250 ml @ 125 mls/hr IVPB Q12H [facility] Rx#:[id number] Oral 300 Output: Chest Tube Drainage 180 Chest Tube Left Lateral 40 Chest Chest Tube Left Posterior 140 Chest Urine 1 300 Other: Voiding Method Toilet Toilet # Voids 1 1 1 # Bowel Movements 1 1 ABP, PAP, CO, CI - Last Documented Arterial Blood Pressure 170/95 - Exam GENERAL: Sitting up in chair, no acute distress NECK: No JVD. No thyroid enlargement. No LNs CARDIOVASCULAR: S1, S2 regular. No murmur RESPIRATION: Nonlabored. Breath sounds diminished. Occasional scattered fine crackles. Left pleural chest tubes 3 to waterseal with serosanguineous drainage.wound VAC dressing with serosanguineous drg, clean dry and intact. ABDOMEN: Soft, nontender . No guarding. no masses palpable. Positive Bowel sounds. LEGS: No edema, wearing knee-high JOHAN hose. no swelling. No clubbing, no cyanosis PSYCHIATRY: Alert and oriented X3, mood and affect normal. NERVOUS SYSTEM: Cranial N 2-12 grossly normal. Moves all 4 limbs. No focal deficits. Strength and sensation grossly intact. Skin: no rashes. Microbiology 02/03/20 15:46 Other - Other Gram Stain - Final 02/03/20 15:46 Other - Other Wound Culture - Final Actinomyces odontolyticus 02/03/20 15:46 Other - Other Anaerobic Culture - Final 01/29/20 09:00 Chest Gram Stain - Final 01/29/20 09:00 Chest Wound Culture - Final Actinomyces odontolyticus - Labs CBC & Chem 7: 02/10/20 06:12 02/10/20 06:12 Labs: Abnormal Lab Results - Last 24 Hours (Table) 02/09/20 02/09/20 02/09/20 Range/Units 05:55 11:47 14:02 RBC (3.80-5.40) m/uL Hgb (11.4-16.0) gm/dL Hct (34.0-46.0) % MCHC (31.0-37.0) g/dL RDW (11.5-15.5) % Plt Count (150-450) k/uL Lymphocytes # (1.0-4.8) k/uL D-Dimer 1.60 H (<0.60) mg/L FEU Sodium (137-145) mmol/L Glucose (74-99) mg/dL POC Glucose (mg/dL) 140 H (75-99) mg/dL Calcium (8.4-10.2) mg/dL Magnesium (1.6-2.3) mg/dL Procalcitonin 1.10 H (0.02-0.09) ng/mL 02/09/20 02/10/20 02/10/20 Range/Units 21:06 06:12 06:12 RBC 2.62 L (3.80-5.40) m/uL Hgb 7.0 L (11.4-16.0) gm/dL Hct 22.8 L (34.0-46.0) % MCHC 30.7 L (31.0-37.0) g/dL RDW 16.6 H (11.5-15.5) % Plt Count 720 H (150-450) k/uL Lymphocytes # 0.9 L (1.0-4.8) k/uL D-Dimer (<0.60) mg/L FEU Sodium 136 L (137-145) mmol/L Glucose 107 H (74-99) mg/dL POC Glucose (mg/dL) 188 H (75-99) mg/dL Calcium 7.9 L (8.4-10.2) mg/dL Magnesium 1.5 L (1.6-2.3) mg/dL Procalcitonin (0.02-0.09) ng/mL 02/10/20 Range/Units 06:17 RBC (3.80-5.40) m/uL Hgb (11.4-16.0) gm/dL Hct (34.0-46.0) % MCHC (31.0-37.0) g/dL RDW (11.5-15.5) % Plt Count (150-450) k/uL Lymphocytes # (1.0-4.8) k/uL D-Dimer (<0.60) mg/L FEU Sodium (137-145) mmol/L Glucose (74-99) mg/dL POC Glucose (mg/dL) 131 H (75-99) mg/dL Calcium (8.4-10.2) mg/dL Magnesium (1.6-2.3) mg/dL Procalcitonin (0.02-0.09) ng/mL Assessment and Plan Assessment: (1)Empyema of the left pleural space ,status post left thoracotomy, total lung decortication, pectoralis major pedicle flap into left pleural space, cryoablation of the intercostal nerves. Cultures reporting actinomyces. Current Visit: Yes Status: Acute Priority: High Code(s): J94.8 - OTHER SPECIFIED PLEURAL CONDITIONS SNOMED Code(s): 76794462 (2) Acute respiratory failure secondary to the above, worsened, requiring 50% Airvo, (3) Essential (primary) hypertension Current Visit: No Status: Chronic Priority: Medium Code(s): I10 - ESSENTIAL (PRIMARY) HYPERTENSION SNOMED Code(s): 07548256 (4) Hypokalemia, currently resolved Current Visit: Yes Status: Acute Priority: High Code(s): E87.6 - HYPOKALEMIA SNOMED Code(s)86476123 (5) Acute post op blood loss anemia , expected, status post transfusion and packed RBCs Current Visit: Yes Status: Chronic Priority: Medium Code(s): D50.9 - IRON DEFICIENCY ANEMIA, UNSPECIFIED SNOMED Code(s): 398642909 (6)Poorly differentiated squamous cell CA, left upper lobe Current Visit: Yes Status: Acute Code(s): C34.90 - MALIGNANT NEOPLASM OF UNSP PART OF UNSP BRONCHUS OR LUNG SNOMED Code(s): 447330869 (7) S/P lobectomy of the left upper lung , 12/31/2019 Current Visit: Yes Status: Chronic Priority: Low Code(s): Z90.2 - ACQUIRED ABSENCE OF LUNG [PART OF] SNOMED Code(s): 82030670703366787 (8) hypomagnesemia (9) Hyponatremia Current Visit: Yes Status: Acute Code(s): E87.1 - HYPO-OSMOLALITY AND HYPONATREMIA SNOMED Code(s): 13472015 (10)Major depressive disorder, recurrent, moderate Current Visit: No Status: Acute Code(s): F33.1 - MAJOR DEPRESSIVE DISORDER, RECURRENT, MODERATE SNOMED Code(s): 963993091 (11)Type 2 diabetes mellitus without complications Current Visit: No Status: Acute Code(s): E11.9 - TYPE 2 DIABETES MELLITUS WITHOUT COMPLICATIONS SNOMED Code(s): 678021322 (12) Fibromyalgia Current Visit: Yes Status: Acute Code(s): M79.7 - FIBROMYALGIA SNOMED Code(s): 777754712 (13) hypoproteinemia (14) Paroxysmal atrial fibrillation, Eliquis on hold Current Visit: Yes Status: Chronic Priority: Medium Code(s): I48.0 - PAROXYSMAL ATRIAL FIBRILLATION SNOMED Code(s): 588041668 (15) Midline placement. (16) elevated d-dimer, rule out PE, CT pending. Plan: Continue on current medication regime ,monitoring and symptomatic treatment. Discussed with cardiothoracic surgery , patient may need to placed on heparin drip etc. related to elevated D-dimer.patient is proceeding to CT th is morning. Further recommendations regarding anticoagulation as per cardiothoracic surgery. Continues on IV antibiotics as per infectious disease. Aggressive pulmonary toileting with incentive spirometer reinforced. Anxiety/ Pain management. Increase ambulation as tolerated/PT .Smoking cessation reinforced. Prognosis guarded given multiple complex medical issues. The impression and plan of care has been dictated as directed. : I performed a history and examination of this patient, discussed the same with the dictator. I agree with the dictator's note ,documented as a scribe. Any additional findings or plans will be noted.
[2020-02-10 16:31] LABS: Glucose,Whole Blood 144 mg/dL (75-99)
[2020-02-10 20:46] LABS: Glucose,Whole Blood 157 mg/dL (75-99)
[2020-02-10] MEDS: ACETAMINOPHEN TAB 500 MG TAB PO PRN (20:46)
[2020-02-10] MEDS: SENNOSIDES-DOCUSATE SODIUM 1 EACH TAB PO SCH (22:02)
--- NOTE | 2020-02-10 22:29 | PN ---
PROGRESS NOTE DATE OF SERVICE: 02/10/2020 REASON FOR FOLLOWUP: Left-sided empyema; possible nosocomial pneumonia. INTERVAL HISTORY: The patient is currently afebrile. The patient is breathing more comfortably. The patient denies having any chest pain. She continues to have a cough, though decreased in intensity, and it remains dry in nature. No chest pain. No abdominal pain. No diarrhea. PHYSICAL EXAMINATION: Blood pressure 116/64 with a pulse of 66, temperature 98.5. She is 99% on 10 L high- flow oxygen. General description is a middle-aged female up in the bed in no distress. RESPIRATORY SYSTEM: Unlabored breathing. Clear to auscultation anteriorly. HEART: S1, S2. Regular rate and rhythm. ABDOMEN: Soft. No tenderness. LABS: Hemoglobin is 7, white count 7.9, BUN of 10, creatinine 0.77. DIAGNOSTIC IMPRESSION AND PLAN: Patient admitted to hospital with left-sided empyema in this patient who is status post left thoracostomy and chest tube placement, subsequently developing pneumonia on the right side with culture possibly Gram-positive, as the patient clinically responded to the vancomycin. To continue. However, underlying component of fluid overload should be considered as well, as the patient did not have any fever or elevated white count with this worsening. May benefit from low-dose diuretics. Monitor her clinical course closely. YANNIL / CINDYN: [id number] /
[2020-02-11] MEDS: HEPARIN SODIUM,PORCINE 5,000 UNIT/ML 1 ML VIAL SQ SCH ×3 (00:22→16:34)
[2020-02-11] MEDS ORDERED: VANCOMYCIN TROUGH DUE 1 EACH MISC MISCELLANE ONE (04:00)
[2020-02-11] MEDS: VANCOMYCIN 1,250 MG in SODIUM CHLORIDE 0.9% 250 ML IVPB SCH (05:21)
[2020-02-11] MEDS: ACETAMINOPHEN TAB 500 MG TAB PO PRN (05:27)
[2020-02-11 06:45] LABS: Glucose,Whole Blood 118 mg/dL (75-99)
[2020-02-11] MEDS: PANTOPRAZOLE 40 MG TABLET PO SCH (06:53)
[2020-02-11] MEDS: INSULIN ASPART (NovoLOG) 100 UNIT/ML VIAL SQ SCH ×4 (06:54→20:31)
--- NOTE | 2020-02-11 07:10 | XR ---
EXAMINATION TYPE: XR chest 1V portable DATE OF EXAM: 02/11/2020 CLINICAL HISTORY: Difficulty breathing and chest tubes progress study. TECHNIQUE: Single AP portable upright view of the chest is obtained. COMPARISON: Chest x-ray and CT chest from one day earlier and older studies. FINDINGS: Overlying EKG leads redemonstrated. 3 left-sided chest tubes redemonstrated. Near complete opacified left hemithorax without mediastinal shift again seen, some aerated left upper lung there a re surgical clips remains present. Background chronic emphysematous change with diffuse right mid to lower lung acute infiltrates and/or edema. Silhouetting left hemidiaphragm redemonstrated. Osseous st ructures remain intact. IMPRESSION: Overall stable findings, extensive left-sided surgical change with chest tubes in place and diffuse left lung edema and/or infiltrates. Persistent less prominent multifocal right mid to lo wer lung acute infiltrates and/or edema. No mediastinal shift. No significant change from one day ear lier.
[2020-02-11 07:27] LABS: Anisocytosis Slight; Basophils % (A) 0 %; Eosinophils # (A) 0.1 k/uL (0-0.7); Eosinophils % (A) 1 %; HCT 22.8 % (34.0-46.0); Hypochromasia Marked; Lymphocytes # (A) 0.8 k/uL (1.0-4.8); Lymphocytes % (A) 8 %; MCH 26.2 pg (25.0-35.0); MCHC 29.8 g/dL (31.0-37.0); MCV 87.7 fL (80.0-100.0); Monocytes # (A) 0.6 k/uL (0-1.0); Monocytes % (A) 5 %; Neutrophils # (A) 9.3 k/uL (1.3-7.7); Neutrophils % (A) 83 %; Platelet Count 787 k/uL (150-450); RDW 16.8 % (11.5-15.5); WBC 11.3 k/uL (3.8-10.6)
[2020-02-11 07:32] LABS: HGB 6.8 gm/dL (11.4-16.0)
[2020-02-11 07:46] LABS: Calcium 8.1 mg/dL (8.4-10.2); Magnesium 1.9 mg/dL (1.6-2.3)
[2020-02-11] MEDS: ALBUTEROL NEBULIZED 2.5 MG/3 ML INHALATION PRN ×4 (07:59→20:10)
[2020-02-11 08:06] LABS: Potassium 4.1 mmol/L (3.5-5.1)
[2020-02-11] MEDS: FERROUS SULFATE 325 MG TAB PO SCH (09:02)
[2020-02-11] MEDS: amLODIPine 10 MG TAB PO SCH (09:02)
[2020-02-11] MEDS: DULoxetine HCL 60 MG CAPSULE.DR PO SCH (09:02)
[2020-02-11] MEDS: MAGNESIUM OXIDE 400 MG TAB PO SCH ×2 (09:02→20:31)
[2020-02-11] MEDS: ASCORBIC ACID 500 MG TAB PO SCH (09:02)
[2020-02-11] MEDS: metroNIDAZOLE 500 MG TAB PO SCH ×3 (09:02→21:51)
[2020-02-11] MEDS: VALSARTAN 160 MG TAB PO SCH (09:03)
[2020-02-11] MEDS: BISOPROLOL 5 MG TAB PO SCH (09:03)
[2020-02-11] MEDS: traMADol 50 MG TAB PO SCH ×3 (09:10→21:52)
[2020-02-11] MEDS: hydrALAZINE HCL 50 MG TAB PO SCH ×4 (09:10→21:51)
[2020-02-11] MEDS ORDERED: FUROSEMIDE 10 MG/ML 4 ML VIAL IV STA (09:42)
[2020-02-11] MEDS ORDERED: FUROSEMIDE 10 MG/ML 2 ML VIAL IV ONE (10:59)
[2020-02-11 11:09] VITALS: BMI 24.3
[2020-02-11 11:56] LABS: Glucose,Whole Blood 122 mg/dL (75-99)
--- NOTE | 2020-02-11 13:07 | P.PN ---
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 Recent history left upper lobectomy for poorly differentiated squamous cell carcinoma This is a 55-year-old female patient who follows with Dr. Leroy on an outpatient basis. She has a past medical history of poorly differentiated squamous cell carcinoma, status post left upper lobectomy on 12/31/2019, hyperte nsion, hyperlipidemia, chronic tobacco abuse, type 2 diabetes mellitus, cervical cancer status post hysterectomy, anxiety and bipolar disorder. On 01/28/2020 she had a follow-up visit with Dr. Teddy Wilkins for her pathology results of her recent left upper lobectomy. Upon exam of her surgical incisions there was a fluctuant area which was painful to touch on her left chest. Subsequently she was started on oral Keflex. Yesterday morning she developed some drainage from that incision site with the fluctuant area, leaking foul smelling yellowish fluid. Her initial lab results showed a WBC count 12.0, Hgb 8.3, neutrophils 59%, positive band neutrophil percent 24 and neutrophil numbers 9.0. A chest x- ray was completed which demonstrated a normal and the left hydropneumothorax, with no significant interval changes. She was admitted to observation to determine further treatment plans and surgical incision with consultation placed to Dr. Teddy Wilkins. On 02/02/2020 patient was seen on follow-up on the fourth floor medical surgical unit. She is resting comfortably in bed, she is alert and oriented 3. Remains hemodynamically stable and is in no acute distress. She has been afebrile for the last 24 hours. Oxygen saturations are 96% on room air. Her left chest wound culture sensitivities remain pending, currently showing gram-positive bacilli. She is on meropenem and vancomycin for antibiotic coverage. Denies any complaints of shortness of breath or pain. The patient states that she had a shower this morning and that her left chest drainage site had minimal drainage from it in the last 12 hours. She was scheduled for a left thoracotomy with decortication for this morning to be performed by Dr. Teddy Wilkins. The procedure was changed and rescheduled for tomorrow 02/03/2020 as Elquis was stopped yesterday morning. Lab results today show a WBC count of 9.0, hemog lobin 10.1, and platelets 962. She is demonstrating good use of her incentive spirometry and achieving 1000 mL. On 02/03/2020 patient is seen in follow-up on general medical floor. She is calm and comfortable, vital signs are stable, room air pulse ox 96%, afebrile, respirations are nonlabored, left chest wound drainage is small amount, reddish in color today. Wound culture showed gram-positive bacilli, patient remains on combination of meropenem and vancomycin for possibility of empyema bro nchopleural fistula, patient has been scheduled for surgical decortication by Dr. Wilkins today. No acute events overnight. On 02/09/2020 patient seen in follow-up on selective care unit. Yesterday patient had episode of acute desaturation and worsening dyspnea and she was laid down flat for PICC line insertion. The procedure was not completed, patient returned to her room, she required placement on high flow oxygen, she could not tolerate BiPAP support. She was given a dose of oral Lasix, her chest x-ray yesterday showed worsening airspace disease throughout the right lung, and stable appearance of left hemithorax with 3 chest tubes with very small portion of aerated lung on the left. Patient has diuresed, she is in negative fluid balance, she is down 1.1 kg since yesterday, her proBNP came back at 4760, IV fluids have been cut back, yesterday's pro-calcitonin was trending down at 0.31, however it's back up again at 1.10, antibiotic coverage has been switched to Levaquin and vancomycin, ID service is following, patient has been afebrile. Today's labs have been reviewed on Web blood cell count of 9.8, hemoglobin of 7.4, electrolytes within normal limits, renal profile unremarkable On 02/10/2020 patient seen in follow-up on selective care unit, remains on AIRVO currently a 60 L/m, and FiO2 of 45%, and a pulse ox in the 100%, will Probably weaning FiO2 further, she has received additional dose of Lasix yesterday, she has diuresed, her weight is down by 0.9 kg since yesterday, today's chest x-ray shows improvement in the density of the patchy infiltrate in the right lung, and stable opacification of the left hemithorax with 3 left-sided chest tubes in place. She remains on antibiotics for left lung empyema with cultures positive for actinomycosis, current antibiotic coverage including Levaquin and vancomycin. ID service is following. D-dimer came back elevated at 1.66, CT chest with contrast has been obtained showing no clear evidence of pulmonary embolism, small amount of residual airspace disease on the left, and previous cavitary lesion is smaller, groundglass opacities throughout the lung cornejo likely related to us ability of pulmonary edema. Today's labs have been reviewed showing white blood cell count trending down, 7.9 on today's labs, hemoglobin 7.0, electrolytes and renal profile are unremarkable, patient has had no fever or chills, she still feels short of breath although does not appear to be in any acute distress. All 3 left-sided chest tubes including left lateral, left posterior and another left lateral are to waterseal, with serosanguineous drainage. CT surgery is following On 02/11/2020 patient seen in follow-up on selective care unit, she has been diuresed, today's chest x-ray shows stable extensive left-sided surgical changes with chest tubes in place, diffuse left lower edema and infiltrates, and persistent multifocal right mid to lower lung infiltrates with slight improvement. SHe is in negative fluid balance, received another dose of IV Lasix today. She remains on antibiotics in the form of Rocephin, and vancomycin and Flagyl. Her wound culture from the left chest wound showed actinomycosis. Patient has been afebrile, FiO2 is down to 3 L, her pulse ox is 92%, she is breathing easier, wound VAC is in place on the left chest wound. CT surgery is following, 3 left chest tubes are in place, and there has been no drainage out of the left posterior chest tube, left lateral chest tube has put out 100 mL o gilbert the last [address] surgery is planning on removing the 2 posterior chest tubes today Objective - Vital Signs Vital signs: Vital Signs Temp 98.2 F 02/11/20 04:00 Pulse 80 02/11/20 11:30 Resp 18 02/11/20 10:00 BP 115/65 02/11/20 08:00 Pulse Ox 92 L 02/11/20 10:00 Intake & Output 02/10/20 02/11/20 02/11/20 18:59 06:59 18:59 Intake Total 458 50 180 Output Total 1200 100 Balance -742 -50 180 Weight 72.5 kg 72.5 kg Intake: Oral 458 50 180 Output: Chest Tube Drainage 100 Chest Tube Left Lateral 100 Chest Chest Tube Left Posterior 0 Chest Urine 1200 Other: Voiding Method Bedside Commode # Voids 1 # Bowel Movements 1 ABP, PAP, CO, CI - Last Documented Arterial Blood Pressure 170/95 - Exam GENERAL EXAM: Alert, very pleasant, 55-year-old white female, currently on 3 l/min with pulse ox of 92% comfortable in no apparent distress. HEAD: Normocephalic/atraumatic. EYES: Normal reaction of pupils, equal size. Conjunctiva pink, sclera white. NOSE: Clear with pink turbinates. THROAT: No erythema or exudates. NECK: No masses, no JVD, no thyroid enlargement, no adenopathy. CHEST: No chest wall deformity. Symmetrical expansion. Patient has 2 lateral and one left posterior chest tube with no evidence of air leak, to waterseal, with serosanguineous output. Wound VAC is in place to the left chest wall wound LUNGS: Equal air entry with no crackles, wheeze, rhonchi or dullness. CVS: Regular rate and rhythm, normal S1 and S2, no gallops, no murmurs, no rubs ABDOMEN: Soft, nontender. No hepatosplenomegaly, normal bowel sounds, no guarding or rigidity. EXTREMITIES: No clubbing, no edema, no cyanosis, 2+ pulses and upper and lower extremities. MUSCULOSKELETAL: Muscle strength and tone normal. SPINE: No scoliosis or deformity SKIN: Wound on the left posterior chest wall, with drainage of purulent serosanguineous drainage. CENTRAL NERVOUS SYSTEM: Alert and oriented -3. No focal deficits, tone is normal in all 4 extremities. PSYCHIATRIC: Alert and oriented -3. Appropriate affect. Intact judgment and insight. - Labs CBC & Chem 7: 02/11/20 06:43 02/11/20 06:43 Labs: Abnormal Lab Results - Last 24 Hours (Table) 02/10/20 02/10/20 02/10/20 Range/Units 12:29 16:30 20:45 WBC (3.8-10.6) k/uL RBC (3.80-5.40) m/uL Hgb (11.4-16.0) gm/dL Hct (34.0-46.0) % MCHC (31.0-37.0) g/dL RDW (11.5-15.5) % Plt Count (150-450) k/uL Neutrophils # (1.3-7.7) k/uL Lymphocytes # (1.0-4.8) k/uL D-Dimer 1.66 H (<0.60) mg/L FEU Glucose (74-99) mg/dL POC Glucose (mg/dL) 144 H 157 H (75-99) mg/dL Calcium (8.4-10.2) mg/dL 02/11/20 02/11/20 02/11/20 Range/Units 06:28 06:43 06:43 WBC 11.3 H (3.8-10.6) k/uL RBC 2.60 L (3.80-5.40) m/uL Hgb 6.8 L* (11.4-16.0) gm/dL Hct 22.8 L (34.0-46.0) % MCHC 29.8 L (31.0-37.0) g/dL RDW 16.8 H (11.5-15.5) % Plt Count 787 H (150-450) k/uL Neutrophils # 9.3 H (1.3-7.7) k/uL Lymphocytes # 0.8 L (1.0-4.8) k/uL D-Dimer (<0.60) mg/L FEU Glucose 103 H (74-99) mg/dL POC Glucose (mg/dL) 118 H (75-99) mg/dL Calcium 8.1 L (8.4-10.2) mg/dL 02/11/20 02/11/20 Range/Units 06:43 11:54 WBC (3.8-10.6) k/uL RBC (3.80-5.40) m/uL Hgb (11.4-16.0) gm/dL Hct (34.0-46.0) % MCHC (31.0-37.0) g/dL RDW (11.5-15.5) % Plt Count (150-450) k/uL Neutrophils # (1.3-7.7) k/uL Lymphocytes # (1.0-4.8) k/uL D-Dimer 1.92 H (<0.60) mg/L FEU Glucose (74-99) mg/dL POC Glucose (mg/dL) 122 H (75-99) mg/dL Calcium (8.4-10.2) mg/dL Assessment and Plan Plan: Assessment: #1. Acute empyema of the left chest, status post left thoracotomy, total lung decortication, pectoralis major pedicle flap transposition into the left pleural space, and cryoablation of the intercostal nerves, postoperative day #8 #2. Acute exacerbation of CHF, fluid overload previously documented diastolic dysfunction, from echocardiogram on 01/02/2020 EF is 55-60%, mild MR, mild TR, no evidence of PAH #3. Superficial wound, draining thin foul-smelling yellowish drainage, with blood cultures positive for gram-positive bacilli, and is on, on meropenem and vancomycin, and she is going for surgical decortication today on 02/03/[address] Wilkins. Wound cultures positive for actinomyces odontolyticus, current antibiotic coverage is with cefepime, Flagyl #4. History of poorly differentiated squamous cell carcinoma, status post left upper lobectomy on 12/31/2019 #5. History of hypertension #6. History of hyperlipidemia #7. Previous tobacco dependence #8. Type 2 diabetes #9. History of cervical cancer status post hysterectomy #10. History of anxiety/bipolar disorder Plan: Agree with additional dose of diuretics, oxygenation has improved, patient is down to 3 L/min. Chest tube management per CT surgery. Medical management by ID service. Continue encouraging deep breathing and coughing, follow-up chest x-ray in the morning. We'll continue to follow I performed a history & physical examination of the patient and discussed their management with my nurse practitioner, Bria Cid. I reviewed the nurse practitioner's note and agree with the documented findings and plan of care. Lung sounds are positive for diffuse wheezes throughout the lung cornejo. The findings and the impression was discussed with the patient. I attest to the documentation by the nurse practitioner. Time with Patient: Less than 30
--- NOTE | 2020-02-11 13:11 | P.PN ---
Subjective Progress Note Date: 02/11/20 Principal diagnosis: This is a 55-year-old female patient who follows with Dr. Leroy on an outpatient basis. She has a past medical history of poorly differentiated squamous cell carcinoma, status post left upper lobectomy on 12/31/2019, hypertension, hyperlipidemia, chronic tobacco abuse, type 2 diabetes mellitus, cervical cancer status post hysterectomy, anxiety and bipolar disorder. On 01/28/2020 she had a follow-up visit with Dr. Teddy Wilkins for her pathology results of her recent left upper lobectomy. Upon exam of her surgical incisions there was a fluctuant area which was painful to touch on her left chest. Subsequently she was started on oral Keflex. Yesterday morning she developed some drainage from that incision site with the fluctuant area, leaking foul smelling yellowish fluid. Her initial lab results showed a WBC count 12.0, Hgb 8.3, neutrophils 59%, positive band neutrophil percent 24 and neutrophil numbers 9.0. A chest x-ray was completed which demonstrated a normal and the left hydropneumothorax, with no significant interval changes. She was admitted to observation to determine further treatment plans and surgical incision with consultation placed to Dr. Teddy Wilkins. POD #8 left thoracotomey. total lung decortication, pectoralis major pedicle flap transposition into the left pleural space, cryoablation of the intercostal nerves. Postoperative acute blood loss anemia, an expected outcome of surgery. Postoperative hypotension, an expected outcome due to hypovolemia. On 02/11/2020 the patient was seen in follow-up at her bedside on the cardiac stepdown unit. She is currently sitting up at the bedside chair. She is in no acute distress and remained hemodynamically stable. Oxygen saturations are 96% on 2 L nasal cannula and she is achieving 1000 mL on her incentive spirometry. She has been afebrile in the last 24 hours. Left pleural chest tubes remain in place to water seal. No air leak is present. Continue to strain thin serosanguineous drainage with her posterior chest tube draining 100 mL output in the last 24 hours and her anterior chest tubes draining 40 mL output in the last 24 hours. Wound VAC dressing remains in place to her left chest superficial wound. The VAC dressing was changed yesterday at her bedside. Currently remains on IV Rocephin, vancomycin and oral Flagyl as her wound culture from her left chest completed on 01/29/2020 and her wound culture obtained in the operating room on 02/03/2020 both resulted Actinomyces odontolyticus. The antibiotics are being managed by infectious disease. Lasix 40 mg IV 1 was ordered yesterday. A chest x-ray was completed this morning which extensive left-sided surgical changes, and persistent less prominent multifocal right and mid lower lung acute infiltrates and/or edema. A computed tomography scan of her chest was completed yesterday with results reviewed by Dr. Wilkins this morning which were discussed with the patient. Laboratory results this morning show a WBC count 11.3, hemoglobin 6.8, hematocrit 22.8, platelets 787, BUN 9 and creatinine 0.84. The patient reports that she has been ambulating in her room with minimal assistance from nursing staff, physical and occupational therapy. Objective - Vital Signs Vital signs: Vital Signs Temp 98.2 F 02/11/20 04:00 Pulse 80 02/11/20 11:30 Resp 18 02/11/20 10:00 BP 115/65 02/11/20 08:00 Pulse Ox 92 L 02/11/20 10:00 Intake & Output 02/10/20 02/11/20 02/11/20 18:59 06:59 18:59 Intake Total 458 50 180 Output Total 1200 100 Balance -742 -50 180 Weight 72.5 kg 72.5 kg Intake: Oral 458 50 180 Output: Chest Tube Drainage 100 Chest Tube Left Lateral 100 Chest Chest Tube Left Posterior 0 Chest Urine 1200 Other: Voiding Method Bedside Commode # Voids 1 # Bowel Movements 1 ABP, PAP, CO, CI - Last Documented Arterial Blood Pressure 170/95 - Constitutional General appearance: Present: average body habitus, cooperative, no acute distress - EENT Eyes: Present: PERRLA, normal appearance. Absent: scleral icterus ENT: Present: normal oropharynx. Absent: thrush - Neck Details: Neck is supple, no JVD. Neck: Absent: lymphadenopathy, thyromegaly - Respiratory Details: Lung sounds with few scattered crackles to her right lobes, diminished bilateral bases left greater than right. Respirations are symmetrical and nonlabored. Oxygen saturation is 96% on 2 L nasal cannula. Achieving 1000 mL on her incentive spirometry. - Cardiovascular Details: Regular rhythm and rate. S1 and S2 present, negative for S3, gallop or murmur. No edema present. Knee-high JOHAN hose and sequential compression devices in place to her bilateral lower extremities. - Gastrointestinal Gastrointestinal Comment(s): Abdomen soft, nontender and nondistended. Active bowel sounds present in all 4 abdominal quadrants. No guarding or rigidity. Tolerating oral intake. Bowel movement yesterday 02/10/2020. - Integumentary Integumentary Comment(s): Skin is warm and dry. Clubbing present, negative for cyanosis. VAC dressing is clean, dry and in place to her left chest superficial wound. - Neurologic Neurologic: Present: CNII-XII intact - Musculoskeletal Musculoskeletal: Present: gait normal, generalized weakness, strength equal bilaterally - Psychiatric Psychiatric: Present: A&O x's 3, appropriate affect, intact judgment & insight - Allied health notes Allied health notes reviewed: nursing - Labs CBC & Chem 7: 02/11/20 06:43 02/11/20 06:43 Labs: Abnormal Lab Results - Last 24 Hours (Table) 02/10/20 02/10/20 02/10/20 Range/Units 12:29 16:30 20:45 WBC (3.8-10.6) k/uL RBC (3.80-5.40) m/uL Hgb (11.4-16.0) gm/dL Hct (34.0-46.0) % MCHC (31.0-37.0) g/dL RDW (11.5-15.5) % Plt Count (150-450) k/uL Neutrophils # (1.3-7.7) k/uL Lymphocytes # (1.0-4.8) k/uL D-Dimer 1.66 H (<0.60) mg/L FEU Glucose (74-99) mg/dL POC Glucose (mg/dL) 144 H 157 H (75-99) mg/dL Calcium (8.4-10.2) mg/dL 02/11/20 02/11/20 02/11/20 Range/Units 06:28 06:43 06:43 WBC 11.3 H (3.8-10.6) k/uL RBC 2.60 L (3.80-5.40) m/uL Hgb 6.8 L* (11.4-16.0) gm/dL Hct 22.8 L (34.0-46.0) % MCHC 29.8 L (31.0-37.0) g/dL RDW 16.8 H (11.5-15.5) % Plt Count 787 H (150-450) k/uL Neutrophils # 9.3 H (1.3-7.7) k/uL Lymphocytes # 0.8 L (1.0-4.8) k/uL D-Dimer (<0.60) mg/L FEU Glucose 103 H (74-99) mg/dL POC Glucose (mg/dL) 118 H (75-99) mg/dL Calcium 8.1 L (8.4-10.2) mg/dL 02/11/20 02/11/20 Range/Units 06:43 11:54 WBC (3.8-10.6) k/uL RBC (3.80-5.40) m/uL Hgb (11.4-16.0) gm/dL Hct (34.0-46.0) % MCHC (31.0-37.0) g/dL RDW (11.5-15.5) % Plt Count (150-450) k/uL Neutrophils # (1.3-7.7) k/uL Lymphocytes # (1.0-4.8) k/uL D-Dimer 1.92 H (<0.60) mg/L FEU Glucose (74-99) mg/dL POC Glucose (mg/dL) 122 H (75-99) mg/dL Calcium (8.4-10.2) mg/dL - Imaging and Cardiology Chest x-ray: report reviewed, image reviewed Assessment and Plan Assessment: 1. Empyema left chest status post left upper lobectomy, status post left thoracotomy, total lung decortication, pectoralis major pedicle flap transposition into the left pleural space, cryoablation of intercostal nerves. 2. Superficial wound, with culture from 01/29/2020 positive for Actinomyces odontolyticus. Currently on Rocephin and Flagyl managed by infectious disease 3. History of poorly differentiated squamous cell carcinoma, status post left upper lobectomy on 12/31/2019 4. History of hypertension 5. History of hyperlipidemia 6. Previous tobacco dependence 7. Type 2 diabetes 8. History of cervical cancer status post hysterectomy 9. History of anxiety/bipolar disorder 10. Postoperative acute blood loss anemia, an expected outcome 11. Postoperative hypotension, an expected outcome, resolved Plan: 1. The posterior and middle chest tube removed without incident. Her anterior chest tube remains in place to water seal. Continue to record accurate I's and O's. Monitor for air leak. 2. Continue to encourage use of her incentive spirometry 10 times an hour while awake. 3. Continue to encourage smoking cessation. 4. Continue to hold Eliquis. No further episodes of atrial fibrillation. Continue subcu heparin /knee-high JOHAN hose and sequential compression devices for DVT prophylaxis. 5. Dressing changed to her left chest yesterday using black granufoam sponge and connected to the wound VAC. Continue to change wound VAC Saturday. Her dressing will be changed again tomorrow 02/12/2020. 6. Culture obtained in the operating room 02/03/2020 shows Actinomyces odontolyticus. Initial culture from her left chest wound from 01/29/2020 also showed Actinomyces odontolyticus continue Rocephin, vancomycin and by mouth Flagyl managed by infectious disease. The patient will need a PICC line for outpatient antibiotic treatment, she went for a PICC line placement yesterday but was unable to lay flat due to her shortness of breath. Reschedule PICC line for when patient is able to tolerate laying flat. 7. GI and DVT prophylaxis. 8. Out of bed for all meals. Increase activity as tolerated with walking in the room. Physical therapy following. 9. Lasix 40 mg IV 1 now. 10. Continue to monitor daily labs and chest x-rays. Replace electrolytes per protocol. 11. Continue to wean oxygen as tolerated, to keep sats greater than or equal to 92%. Bronchodilator management per pulmonary medicine service. 12. The patient's Gustavo was updated on her care today will present at her bedside, per phone. 13. One unit of packed red blood cells has been ordered by primary care service for hemoglobin of 6.8. Send stool for occult. 14. More recommendations to follow based on patient's clinical course. Time with Patient: Greater than 30
--- NOTE | 2020-02-11 15:41 | P.PN ---
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 Patient had seen cardiothoracic surgeon Dr. Wilkins yesterday, started on oral Keflex. Afebrile, WBC12, vital signs stable. Hemoglobin 8.3, sodium 131, potassium 3.1, magnesium 1.5. Alkaline phosphatase mildly elevated 134. Chest x-ray reporting known left hydropneumothorax, trachea midline, right lung clear. EKG reporting normal sinus rhythm, lateral infarct, age undet ermined. Troponin negative 1. Denies chest pain, palpitations or shortness of breath. Denies lightheadedness, dizziness or focal deficits. 01/30/2020: The patient was not discharged last night as a potassium of return to normal. She does have a small leukocytosis which may be consistent with her recent surgeries and lung cancer, however a repeat is pending for this morning. I discussed the case currently with thoracic surgery and they felt that because of the white count, Keflex and discharged to be held. We discussed pulmonology consult which was done. That is in progress and they had ordered a CT chest showing an air-fluid level and dense consolidation remainder of the lung left lo be after left upper lobectomy. The margins suggested infection. Currently she's been placed on meropenem. Her wound continues to drain. Cultures are pending, but currently show no growth. He denies any significant chest pains, pressures, or shortness of breath this time. She denies any nausea or vomiting. She reports her appetite is little bit improved. She had not been eating well recently due to her cancer and treatment. Potassium this morning is 3.2. 01/31/2020: Her case was discussed with vascular surgery, they will plan a a large debridement of her chest wound in the next 48 hours. She remains on amiodarone and Elequis for anticoagulation due to atrial fibrillation. She continues on meropenem and vancomycin for her Lung empyema after robotically assisted left upper lobectomy for squamous cell carcinoma. He remains on bisoprolol for blood pressure control, but it remains somewhat elevated. Hemoglobin is dropped from 8.3 down to 6.4. A stat repeat is now 6.9. Her plat elets continue to be elevated, most likely reactive, now 1044. She remains hyponatremic at 133. She denies any significant chest pains, pressures, or shortness of breath other than with exertion. She denies any significant nausea or vomiting. Staff reports she is complaining some vaginal itching and irritation. Potassium is now up to 4.2 today. 02/01/2020 Wound cultures reporting gram-positive bacilli isolated. Maintained on vancomycin, Merrem. Continues having purulent drainage from lateral left chest incision site. Tested negative for coronavirus. Afebrile, WBC WNL. Hemoglobin 8.2. Telemetry sinus rhythm. Denies chest pain, palpitations. 02/02/2020 received Eliquis yesterday, surgery, rescheduled for tomorrow for 02/03/20. Hypertensive, hydralazine initiated yesterday. Drainage continues. Afebrile, WBC within normal limits. Maintaining O2 sats in the 90s on room air. Hemoglobin 10.1. 02/03/2020 NPO, Eliquis remains on hold. OR pending. Hypertensive. Hemoglobin 8.8. Continues maintaining O2 sats in the mid 90s on room air. Afebrile, WBC WNL. 02/04/2020 yesterday underwent left thoracotomey. total lung decortication, pectoralis major pedicle flap transposition into the left pleural space, cryoablation of the intercostal nerves, with placement of 3 left pleural chest tubes,tolerated procedure well. Left pleural chest tube insertion sites discomfort. Maintaining O2 sats in the 90s on room air. Incentive spirometer up to 1000. Maintained on vancomycin, Merrem Chest x-ray reporting surgical changes, chest tubes, complete opacified left hemothorax with mediastinal shift, improving subcutaneous emphysema. Eliquis remains on hold. Wound culture rep orting gram-positive bacilli. Telemetry sinus bradycardia. Hemoglobin 7.9, received 1 unit postop of packed RBCs in addition to IV fluid resuscitation, albumin. Borderline hypotension with systolic blood pressures in the low 90s, MAP 61. 02/05/2020 evaluated by infectious disease with antibiotics adjusted. Currently maintained on Rocephin and Flagyl. Renal function improving, creatinine down to 1.27. Hemoglobin down to 7,(EBL 300 of recent surgery) Maintaining O2 sats in the 90s on room air. Chest x-ray reporting 3 left-sided chest tubes, some subcutaneous emphysema along the left hemothorax, some increasing patchy opacity in the periphery of the right mid and lower lung, continued complete whiteout of the left hemithorax. Sodium 132. Yesterday hypotensive, requiring albumin, antihypertensives held. Currently systolic blood pressure in the 130s reported per staff without antihypertensives on board. 02/08/2020 maintaining O2 sats in the 90s on room air. Hemoglobin 8. M aintained on Rocephin and Flagyl . Chest x-ray reporting worsening multifocal alveolar right-sided airspace disease, confluent .Wound cultures positive for Actinomyces odontolyticus. Scheduled for PICC line placement today. Complains of left chest tubes insertion sites discomfort. 02/09/2020 Yesterday went down for PICC line, wearing 2 L nasal cannula, attempted to lie flat, went into respiratory distress, midline placed instead .O2 requirement significantly increased up to 50% airvo.Chest CT ordered yesterday, not completed as patient unable to lie flat.Maintaining O2 sats in the high 90s on 50% high flow/Airvo. Nonproductive cough. Chest x-ray reporting 3 chest tubes remain in place with near complete whiteout of the left hemothorax, very small portions of aerated lung remain unchanged. Right-sided airspace disease similar to minimally less confused. Received a dose of Levaquin yesterday as per ID in addition to vancomycin added to antibiotic regimen of Rocephin and Flagyl .creatinine 0.77 .No nausea, vomiting or diarrhea. Positive bowel movement yesterday. Blood sugars controlled. Afebrile, normal WBC. Sputum culture ordered. Hemoglobin 7.4. Wound VAC placed yesterday. Pro- calcitonin level trending down. Denies chest pain, palpitations. Telemetry sinus rhythm. 02/10/2020 currently on 45% high flow nasal cannula, maintaining O2 sats of 100%. Hemoglobin down to 7. Incentive spirometer up to 1000. Chest x-ray reporting complete opacification of the left hemothorax, 3 left-sided chest tubes, some left lateral apical free air versus residual lung aeration-stable, patchy infiltrate right lung-stable. Denies increase in shortness of breath. Denies chest pain, palpitations. Denies lightheadedness, dizziness or focal deficits. Afebrile, normal WBC. Magnesium 1.5. Blood sugars controlled. As patient was unable to proceed with CT yesterday, d-dimer ordered, elevated 1.6. Patient is going down this morning to attempt CT with contrast. 02/11/2020 CT performed yesterday morning small residual airspace disease, previous cavitary lesion significantly smaller, multiple left-sided chest tubes present, groundglass opacity; feels developing from comparison study, possible atypical pneumonia, pulmonary edema. Nonproductive cough. Yesterday afternoon, anxiety increased, with subsequent increase in O2 up to 10 L nasal cannula. Chest x-ray this morning reporting stable, extensive left-sided surgical change, diffuse left lung edema and/or infiltrates, persistent less prominent multifocal right mid to lower lung acute infiltrates and/or edema without mediastinal shift. This morning FiO2 weaned down to 3 L, maintaining O2 sats in the low 90 s. Hemoglobin 6.8. Scheduled to have her mid and posterior left chest tubes discontinued with anterior chest tube being left in. More motivated this morning, participated with physical therapy, ambulating in room, tolerating exertion well. Objective - Vital Signs Vital signs: Vital Signs Temp 98.2 F 02/11/20 04:00 Pulse 82 02/11/20 08:10 Resp 20 02/11/20 04:00 BP 132/56 02/11/20 04:00 Pulse Ox 99 02/11/20 08:00 Intake & Output 02/10/20 02/11/20 02/11/20 18:59 06:59 18:59 Intake Total 458 50 180 Output Total 1200 100 Balance -742 -50 180 Weight 72.5 kg Intake: Oral 458 50 180 Output: Chest Tube Drainage 100 Chest Tube Left Lateral 100 Chest Chest Tube Left Posterior 0 Chest Urine 1200 Other: Voiding Method Bedside Commode # Voids 1 # Bowel Movements 1 ABP, PAP, CO, CI - Last Documented Arterial Blood Pressure 170/95 - Labs CBC & Chem 7: 02/11/20 06:43 02/11/20 06:43 Labs: Abnormal Lab Results - Last 24 Hours (Table) 02/10/20 02/10/20 02/10/20 Range/Units 11:52 12:29 16:30 WBC (3.8-10.6) k/uL RBC (3.80-5.40) m/uL Hgb (11.4-16.0) gm/dL Hct (34.0-46.0) % MCHC (31.0-37.0) g/dL RDW (11.5-15.5) % Plt Count (150-450) k/uL Neutrophils # (1.3-7.7) k/uL Lymphocytes # (1.0-4.8) k/uL D-Dimer 1.66 H (<0.60) mg/L FEU Glucose (74-99) mg/dL POC Glucose (mg/dL) 151 H 144 H (75-99) mg/dL Calcium (8.4-10.2) mg/dL 02/10/20 02/11/20 02/11/20 Range/Units 20:45 06:28 06:43 WBC 11.3 H (3.8-10.6) k/uL RBC 2.60 L (3.80-5.40) m/uL Hgb 6.8 L* (11.4-16.0) gm/dL Hct 22.8 L (34.0-46.0) % MCHC 29.8 L (31.0-37.0) g/dL RDW 16.8 H (11.5-15.5) % Plt Count 787 H (150-450) k/uL Neutrophils # 9.3 H (1.3-7.7) k/uL Lymphocytes # 0.8 L (1.0-4.8) k/uL D-Dimer (<0.60) mg/L FEU Glucose (74-99) mg/dL POC Glucose (mg/dL) 157 H 118 H (75-99) mg/dL Calcium (8.4-10.2) mg/dL 02/11/20 02/11/20 Range/Units 06:43 06:43 WBC (3.8-10.6) k/uL RBC (3.80-5.40) m/uL Hgb (11.4-16.0) gm/dL Hct (34.0-46.0) % MCHC (31.0-37.0) g/dL RDW (11.5-15.5) % Plt Count (150-450) k/uL Neutrophils # (1.3-7.7) k/uL Lymphocytes # (1.0-4.8) k/uL D-Dimer 1.92 H (<0.60) mg/L FEU Glucose 103 H (74-99) mg/dL POC Glucose (mg/dL) (75-99) mg/dL Calcium 8.1 L (8.4-10.2) mg/dL Assessment and Plan Assessment: -Empyema of the left pleural space ,status post left thoracotomy, total lung decortication, pectoralis major pedicle flap into left pleural space, cryoabl ation of the intercostal nerves. Cultures reporting actinomyces. Current Visit: Yes Status: Acute Priority: High Code(s): J94.8 - OTHER SPECIFIED PLEURAL CONDITIONS SNOMED Code(s): 67842276 -Possible Right-sided pneumonia, gram-positive, not present on admission -Acute CHF exacerbation, diastolic dysfunction secondary fluid overload - Acute respiratory failure secondary to the above, status post Airvo, - Essential (primary) hypertension Current Visit: No Status: Chronic Priority: Medium Code(s): I10 - ESSENTIAL (PRIMARY) HYPERTENSION SNOMED Code(s): 19095622 -Hypokalemia, currently resolved Current Visit: Yes Status: Acute Priority: High Code(s): E87.6 - HYPOKALEM IA SNOMED Code(s)13684587 - Acute post op blood loss anemia , expected, status post transfusion and packed RBCs Current Visit: Yes Status: Chronic Priority: Medium Code(s): D50.9 - IRON DEFICIENCY ANEMIA, UNSPECIFIED SNOMED Code(s): 686655440 -Poorly differentiated squamous cell CA, left upper lobe Current Visit: Yes Status: Acute Code(s): C34.90 - MALIGNANT NEOPLASM OF UNSP PART OF UNSP BRONCHUS OR LUNG SNOMED Code(s): 668280252 - S/P lobectomy of the left upper lung , 12/31/2019 Current Visit: Yes Status: Chronic Priority: Low Code(s): Z90.2 - ACQUIRED ABSENCE OF LUNG [PART OF] SNOMED Code(s): 04732363929190928 - hypomagnesemia - Hyponatremia Current Visit: Yes Status: Acute Code(s): E87.1 - HYPO-OSMOLALITY AND HYPONATREMIA SNOMED Code(s): 05486217 -Major depressive disorder, recurrent, moderate Current Visit: No Status: Acute Code(s): F33.1 - MAJOR DEPRESSIVE DISORDER, RECURRENT, MODERATE SNOMED Code(s): 039950495 -Type 2 diabetes mellitus without complications Current Visit: No Status: Acute Code(s): E11.9 - TYPE 2 DIABETES MELLITUS WITHOUT COMPLICATIONS SNOMED Code(s): 064922639 - Fibromyalgia Current Visit: Yes Status: Acute Code(s): M79.7 - FIBROMYALGIA SNOMED Code(s): 806672029 - hypoproteinemia - Paroxysmal atrial fibrillation, Eliquis on hold Current Visit: Yes Status: Chronic Priority: Medium Code(s): I48.0 - PAROXYSMAL ATRIAL FIBRILLATION SNOMED Code(s): 747688476 - Midline placement. Plan: Continue on current medication regime ,monitoring and symptomatic treatment. One unit of packed RBCs ordered with Lasix 20 IV push times one to follow transfusion. Echo ordered regarding fluid overload/pulmonary edema. IV antibiotics/PICC line placement as per infectious disease. Increase activity/ambulation as tolerated. Aggressive pulmonary toileting with incentive spirometer reinforced. Anxiety/ Pain management. Prognosis guarded given multiple complex medical issues. The impression and plan of care has been dictated as directed. : I performed a history and examination of this patient, discussed the same with the dictator. I agree with the dictator's note ,documented as a scribe. Any a dditional findings or plans will be noted.
--- NOTE | 2020-02-11 18:03 | PN ---
PROGRESS NOTE DATE OF SERVICE: 02/11/2020 REASON FOR FOLLOWUP: Left-sided empyema. INTERVAL HISTORY: The patient is currently afebrile. The patient is breathing more comfortably. She has been brought down to 2 L nasal cannula. Denies having any chest pain. She does have a cough, but decreased in intensity, and it remains dry in nature. No nausea, no vomiting. No abdominal pain or diarrhea. PHYSICAL EXAMINATION: Blood pressure 111/65 with a pulse of 58, temperature 97.9. She is 95% on 2 L nasal cannula. General description is a middle-aged female up in the chair in no distress. RESPIRATORY SYSTEM: Unlabored breathing with decreased intensity of breath sounds. No wheeze. HEART: S1, S2. Regular rate and rhythm. ABDOMEN: Soft. No tenderness. LABS/IMAGING: Hemoglobin 6.8, white count 11.3 with a BUN of 9, creatinine 0.84. Culture has been positive for Actinomyces. Chest x-ray did show overall improvement. DIAGNOSTIC IMPRESSION AND PLAN: 1. Patient with left-sided empyema, status post thoracotomy. Culture with Actinomyces. Patient does have PENICILLIN ALLERGY, covered with Rocephin and Flagyl; to continue for a 6-week course of therapy. 2. Patient with right-sided question of pneumonia. More likely related to fluid overload, as the patient seemed to respond to Lasix. We will go ahead and discontinue vancomycin and monitor the patient closely. Will order a PICC line for outpatient antibiotic therapy and continue supportive care. MMODL / IJN: [id number] /
[2020-02-11] MEDS: SODIUM CHLORIDE 0.9% 1,000 ML IV SCH (19:06)
[2020-02-11] MEDS: SENNOSIDES-DOCUSATE SODIUM 1 EACH TAB PO SCH (20:33)
[2020-02-11] MEDS ORDERED: VANCOMYCIN 1,250 MG in SODIUM CHLORIDE 0.9% 250 ML IVPB SCH (22:00)
[2020-02-12] MEDS: ACETAMINOPHEN TAB 500 MG TAB PO PRN (00:02)
[2020-02-12] MEDS: HEPARIN SODIUM,PORCINE 5,000 UNIT/ML 1 ML VIAL SQ SCH ×3 (00:03→17:57)
[2020-02-12] MEDS: PANTOPRAZOLE 40 MG TABLET PO SCH (06:45)
[2020-02-12] MEDS: INSULIN ASPART (NovoLOG) 100 UNIT/ML VIAL SQ SCH ×4 (06:47→21:27)
[2020-02-12] MEDS: ALBUTEROL NEBULIZED 2.5 MG/3 ML INHALATION PRN ×4 (07:20→20:26)
[2020-02-12 07:44] LABS: Anisocytosis Slight; Basophils % (A) 0 %; Eosinophils # (A) 0.1 k/uL (0-0.7); Eosinophils % (A) 1 %; HCT 29.6 % (34.0-46.0); Hypochromasia Marked; Lymphocytes # (A) 0.9 k/uL (1.0-4.8); Lymphocytes % (A) 7 %; MCH 26.9 pg (25.0-35.0); MCHC 31.1 g/dL (31.0-37.0); MCV 86.3 fL (80.0-100.0); Monocytes # (A) 0.5 k/uL (0-1.0); Monocytes % (A) 4 %; Neutrophils # (A) 11.1 k/uL (1.3-7.7); Neutrophils % (A) 86 %; Platelet Count 769 k/uL (150-450); Poikilocytosis Slight; RBC 3.43 m/uL (3.80-5.40); RDW 16.2 % (11.5-15.5)
[2020-02-12 07:48] LABS: HGB 9.2 gm/dL (11.4-16.0)
[2020-02-12 07:49] LABS: Glucose,Whole Blood 236 mg/dL (75-99)
[2020-02-12 07:49] LABS: Glucose,Whole Blood 142 mg/dL (75-99)
[2020-02-12 07:49] LABS: Glucose,Whole Blood 127 mg/dL (75-99)
[2020-02-12 07:52] LABS: African American GFR (CKD) >90 (>60 ml/min/1.73 sqM); Anion Gap 7 mmol/L; Blood Urea Nitrogen 10 mg/dL (7-17); Carbon Dioxide 33 mmol/L (22-30); Chloride 97 mmol/L (98-107); Glucose 149 mg/dL (74-99); Non-African American GFR(CKD) 80 (>60 ml/min/1.73 sqM); Potassium 3.5 mmol/L (3.5-5.1); Sodium 137 mmol/L (137-145)
[2020-02-12] MEDS ORDERED: FUROSEMIDE 10 MG/ML 4 ML VIAL IV STA (09:32)
[2020-02-12] MEDS: metroNIDAZOLE 500 MG TAB PO SCH ×3 (09:34→21:35)
[2020-02-12] MEDS: VALSARTAN 160 MG TAB PO SCH (09:35)
[2020-02-12] MEDS: FERROUS SULFATE 325 MG TAB PO SCH (09:35)
[2020-02-12] MEDS: DULoxetine HCL 60 MG CAPSULE.DR PO SCH (09:35)
[2020-02-12] MEDS: MAGNESIUM OXIDE 400 MG TAB PO SCH ×2 (09:35→21:37)
[2020-02-12] MEDS: amLODIPine 10 MG TAB PO SCH (09:35)
[2020-02-12] MEDS: hydrALAZINE HCL 50 MG TAB PO SCH ×4 (09:35→21:37)
[2020-02-12] MEDS: BISOPROLOL 5 MG TAB PO SCH (09:35)
[2020-02-12] MEDS: traMADol 50 MG TAB PO SCH ×3 (09:35→21:36)
[2020-02-12] MEDS: ASCORBIC ACID 500 MG TAB PO SCH (09:36)
--- NOTE | 2020-02-12 09:40 | ECHOF ---
Referral Reason:fluid overload, LV fx MEASUREMENTS -------- HEIGHT: 172.7 cm WEIGHT: 72.1 kg BP: 115/65 IVSd: 1.0 cm (0.6 - 1.1) LVIDd: 4.0 cm (3.9 - 5.3) LVPWd: 1.0 cm (0.6 - 1.1) IVSs: 1.1 cm LVIDs: 2.8 cm LVPWs: 1.3 cm FINDINGS -------- Sinus rhythm. This was a technically adequate study. Limited Study The left ventricular size is normal. Left ventricular wall thickness is normal. Overall left vent ricular systolic function is normal with, an EF between 55 - 60 %. There is a small, generalized pericardial effusion present. CONCLUSIONS -------- 1. Sinus rhythm. 2. This was a technically adequate study. 3. Limited Study 4. The left ventricular size is normal. 5. Left ventricular wall thickness is normal. 6. Overall left ventricular systolic function is normal with, an EF between 55 - 60 %. 7. There is a small, generalized pericardial effusion present. TOY MAKER: Angy Araya, [facility]
[2020-02-12] MEDS: POTASSIUM CHLORIDE ER 20 MEQ TAB.ER PO SCH ×2 (09:46→11:04)
--- NOTE | 2020-02-12 10:43 | XR ---
EXAMINATION TYPE: XR chest 1V portable DATE OF EXAM: 02/12/2020 COMPARISON: 02/11/2020 HISTORY: Status post thoracotomy. TECHNIQUE: Single frontal view of the chest is obtained. FINDINGS: Postsurgical change of a left thoracotomy. Removal of 2 of the left-sided thoracostomy tub es has been performed with one remaining place. Lucency medial to the thoracostomy tube and loculated anterolateral to the distal portion of the left thoracostomy tube are redemonstrated. Remainder the lung is opacified on the left. Obscuration of the left mediastinal border. Patchy right midlung and r ight lower lung airspace disease remains stable. No right-sided pleural effusion or pneumothorax. No acute osseous process. IMPRESSION: Removal of 2 left-sided ostomy tubes with one remaining. Postsurgical change of the left thoracotomy. Loculated air of a residual pneumothorax is seen on the left. Stable multifocal right-s ided airspace disease.
--- NOTE | 2020-02-12 10:54 | P.PN ---
Subjective Progress Note Date: 02/12/20 Principal diagnosis: This is a 55-year-old female patient who follows with Dr. Leroy on an outpatient basis. She has a past medical history of poorly differentiated squamous cell carcinoma, status post left upper lobectomy on 12/31/2019, hypertension, hyperlipidemia, chronic tobacco abuse, type 2 diabetes mellitus, cervical cancer status post hysterectomy, anxiety and bipolar disorder. On 01/28/2020 she had a follow-up visit with Dr. Teddy Wilkins for her pathology results of her recent left upper lobectomy. Upon exam of her surgical incisions there was a fluctuant area which was painful to touch on her left chest. Subsequently she was started on oral Keflex. Yesterday morning she developed some drainage from that incision site with the fluctuant area, leaking foul smelling yellowish fluid. Her initial lab results showed a WBC count 12.0, Hgb 8.3, neutrophils 59%, positive band neutrophil percent 24 and neutrophil numbers 9.0. A chest x-ray was completed which demonstrated a normal and the left hydropneumothorax, with no significant interval changes. She was admitted to observation to determine further treatment plans and surgical incision with consultation placed to Dr. Teddy Wilkins. POD #9 left thoracotomey. total lung decortication, pectoralis major pedicle flap transposition into the left pleural space, cryoablation of the intercostal nerves. Postoperative acute blood loss anemia, an expected outcome of surgery. Postoperative hypotension, an expected outcome due to hypovolemia. On 02/12/2020 the patient was seen in follow-up at her bedside on the cardiac stepdown unit. She is awake, alert and oriented 3, she is in no acute distress and is hemodynamically stable. She has been afebrile the last 24 hours, her oxygen saturations are 96% on 2 L nasal cannula and she is achieving 750-1000 mL on her incentive spirometry. Her posterior and middle left pleural chest tubes were removed yesterday and she currently has one left pleural chest tube remaining. No air leak is present. It remains to water seal and is draining scant serosanguineous drainage with 10 mL of drainage in the collection chamber. VAC dressing remains in place to her left chest superficial wound. The VAC dressing was changed this morning at her bedside, the wound bed is pink with granulating tissue. No drainage present. Wound measurements were taken and it measures 4 cm x 1 cm x 1.5 cm. The patient reports she feels much improved today, denies any further complaints of shortness of breath and denies any complaints of pain. She received 1 unit of packed red blood cells yesterday for hemoglobin of 6.8. Laboratory results today show a WBC count 13.0, hemoglobin 9.2, hematocrit 29.6, platelets 769, BUN 10 and creatinine 0.82. A stool for alcohol blood was sent yesterday and was negative. She remains on IV Rocephin and oral Flagyl for antibiotic coverage managed by infectious disease. Objective - Vital Signs Vital signs: Vital Signs Temp 98 F 02/12/20 08:30 Pulse 69 02/12/20 08:30 Resp 19 02/12/20 08:30 BP 143/75 02/12/20 08:30 Pulse Ox 96 02/12/20 08:30 Intake & Output 02/11/20 02/12/20 02/12/20 18:59 06:59 18:59 Intake Total 1260 310 180 Output Total 501 Balance 1260 -191 180 Weight 72.5 kg 66.1 kg Intake: Oral 1260 180 Blood Product 0 310 Rc As-3 Unit 0 310 [id number] Output: Chest Tube Drainage 1 Chest Tube Left Lateral 1 Chest Urine 500 Other: Voiding Method Bedside Commode Bedside Commode # Voids 2 1 # Bowel Movements 1 ABP, PAP, CO, CI - Last Documented Arterial Blood Pressure 170/95 - Exam This is a 55-year-old pleasant female patient who is sitting up to the bedside chair in the cardiac stepdown unit. She is in no acute distress. Oxygen saturations are 96% % on 2 L nasal cannula. She is hemodynamically stable and afebrile. - Constitutional General appearance: Present: average body habitus, cooperative, no acute distress - EENT Eyes: Present: PERRLA, normal appearance ENT: Present: hearing grossly normal, normal oropharynx - Neck Details: Neck is supple, no JVD. Neck: Absent: lymphadenopathy, thyromegaly - Respiratory Details: Lung sounds essentially clear to her right lobes, diminished to her bilateral bases left greater than right. Respirations are symmetrical and nonlabored. Oxygen saturation is 96% on 2 L nasal cannula. Achieving 750-1000 mL on her incentive spirometry. Left pleural chest tube remains in place to water seal. No airleak is present. Draining scant serosanguineous drainage with 10 mL output the last 24 hours. - Cardiovascular Details: Regular rhythm and rate. S1 and S2 present, negative for S3, gallop or murmur. No edema present. Knee-high JOHAN hose and sequential compression devices in place to her bilateral lower extremities. - Gastrointestinal Gastrointestinal Comment(s): Abdomen is soft, nontender and nondistended. Active bowel sounds present in all 4 abdominal quadrants. No guarding or rigidity. No organomegaly appreciated. - Genitourinary Genitourinary Comment(s): Voiding clear yellow urine. - Integumentary Integumentary Comment(s): Skin is warm and dry. Positive clubbing. No cyanosis. No rash or abnormal pigmentation. Wound VAC dressing clean, dry and intact her superficial left chest wound. - Neurologic Neurologic: Present: CNII-XII intact - Musculoskeletal Musculoskeletal: Present: gait normal, generalized weakness, strength equal bilaterally - Psychiatric Psychiatric: Present: A&O x's 3, appropriate affect, intact judgment & insight - Allied health notes Allied health notes reviewed: nursing - Labs CBC & Chem 7: 02/12/20 07:19 02/12/20 07:19 Labs: Abnormal Lab Results - Last 24 Hours (Table) 02/11/20 02/11/20 02/11/20 Range/Units 11:54 12:19 16:37 WBC (3.8-10.6) k/uL RBC (3.80-5.40) m/uL Hgb (11.4-16.0) gm/dL Hct (34.0-46.0) % RDW (11.5-15.5) % Plt Count (150-450) k/uL Neutrophils # (1.3-7.7) k/uL Lymphocytes # (1.0-4.8) k/uL Chloride (98-107) mmol/L Carbon Dioxide (22-30) mmol/L Glucose (74-99) mg/dL POC Glucose (mg/dL) 122 H 236 H (75-99) mg/dL Calcium (8.4-10.2) mg/dL Crossmatch See Detail 02/11/20 02/12/20 02/12/20 Range/Units 19:58 05:59 07:19 WBC 13.0 H (3.8-10.6) k/uL RBC 3.43 L (3.80-5.40) m/uL Hgb 9.2 L D (11.4-16.0) gm/dL Hct 29.6 L (34.0-46.0) % RDW 16.2 H (11.5-15.5) % Plt Count 769 H (150-450) k/uL Neutrophils # 11.1 H (1.3-7.7) k/uL Lymphocytes # 0.9 L (1.0-4.8) k/uL Chloride (98-107) mmol/L Carbon Dioxide (22-30) mmol/L Glucose (74-99) mg/dL POC Glucose (mg/dL) 142 H 127 H (75-99) mg/dL Calcium (8.4-10.2) mg/dL Crossmatch 02/12/20 Range/Units 07:19 WBC (3.8-10.6) k/uL RBC (3.80-5.40) m/uL Hgb (11.4-16.0) gm/dL Hct (34.0-46.0) % RDW (11.5-15.5) % Plt Count (150-450) k/uL Neutrophils # (1.3-7.7) k/uL Lymphocytes # (1.0-4.8) k/uL Chloride 97 L (98-107) mmol/L Carbon Dioxide 33 H (22-30) mmol/L Glucose 149 H (74-99) mg/dL POC Glucose (mg/dL) (75-99) mg/dL Calcium 8.0 L (8.4-10.2) mg/dL Crossmatch - Imaging and Cardiology Chest x-ray: report reviewed, image reviewed Assessment and Plan Assessment: 1. Empyema left chest status post left upper lobectomy, status post left thoracotomy, total lung decortication, pectoralis major pedicle flap transposition into the left pleural space, cryoablation of intercostal nerves. 2. Superficial wound, with culture from 01/29/2020 positive for Actinomyces odontolyticus. Currently on Rocephin and Flagyl managed by infectious disease 3. History of poorly differentiated squamous cell carcinoma, status post left upper lobectomy on 12/31/2019 4. History of hypertension 5. History of hyperlipidemia 6. Previous tobacco dependence 7. Type 2 diabetes 8. History of cervical cancer status post hysterectomy 9. History of anxiety/bipolar disorder 10. Postoperative acute blood loss anemia, an expected outcome 11. Postoperative hypotension, an expected outcome, resolved Plan: 1. Keep left pleural in place and to waterseal. Continue to record accurate I's and O's. Monitor for air leak. 2. Continue to encourage use of her incentive spirometry 10 times an hour while awake. 3. Continue to encourage smoking cessation. 4. Continue to hold Eliquis. No further episodes of atrial fibrillation. Continue subcu heparin /knee-high JOHAN hose and sequential compression devices for DVT prophylaxis. 5. Dressing changed to her left chest today using black granufoam sponge and connected to the wound VAC. Continue to change wound VAC Saturday. Wound measurements taken today and measuring 4 cm x 1 cm x 1.5 cm. 6. Culture obtained in the operating room 02/03/2020 shows Actinomyces odontolyticus. Initial culture from her left chest wound from 01/29/2020 also showed Actinomyces odontolyticus continue Rocephin, and by mouth Flagyl managed by infectious disease. 7. Continue GI and DVT prophylaxis. 8. Out of bed for all meals. Increase activity as tolerated with walking in the room. Physical therapy following. 9. Lasix 40 mg IV 1 now and Diamox 250 mg IV 1 now. 10. Continue to monitor daily labs and chest x-rays. Replace electrolytes per protocol. 11. Continue to wean oxygen as tolerated, to keep sats greater than or equal to 92%. Bronchodilator management per pulmonary medicine service. 12. The patient's Gustavo was updated on her care today will present at her bedside, per phone. 13. Order for PICC line placed today for outpatient antibiotic treatments. 14. More recommendations to follow based on patient's clinical course. Time with Patient: Greater than 30
[2020-02-12 11:21] LABS: Glucose,Whole Blood 134 mg/dL (75-99)
--- NOTE | 2020-02-12 12:25 | P.PN ---
Subjective Progress Note Date: 02/12/20 This is a 55-year-old female, nicotine dependent, 40 year smoking history, quit in October 2019, with recently diagnosed -poorly differentiated squamous cell CA left lung, status post left upper lobectomy on 12/31/2019, presented to the ER with complaints of increased foul-smelling draining from prior lobectomy incision sites. Patient had seen cardiothoracic surgeon Dr. Wilkins yesterday, started on oral Keflex. Afebrile, WBC12, vital signs stable. Hemoglobin 8.3, sodium 131, potassium 3.1, magnesium 1.5. Alkaline phosphatase mildly elevated 134. Chest x-ray reporting known left hydropneumothorax, trachea midline, right lung clear. EKG reporting normal sinus rhythm, lateral infarct, age undet ermined. Troponin negative 1. Denies chest pain, palpitations or shortness of breath. Denies lightheadedness, dizziness or focal deficits. 01/30/2020: The patient was not discharged last night as a potassium of return to normal. She does have a small leukocytosis which may be consistent with her recent surgeries and lung cancer, however a repeat is pending for this morning. I discussed the case currently with thoracic surgery and they felt that because of the white count, Keflex and discharged to be held. We discussed pulmonology consult which was done. That is in progress and they had ordered a CT chest showing an air-fluid level and dense consolidation remainder of the lung left lo be after left upper lobectomy. The margins suggested infection. Currently she's been placed on meropenem. Her wound continues to drain. Cultures are pending, but currently show no growth. He denies any significant chest pains, pressures, or shortness of breath this time. She denies any nausea or vomiting. She reports her appetite is little bit improved. She had not been eating well recently due to her cancer and treatment. Potassium this morning is 3.2. 01/31/2020: Her case was discussed with vascular surgery, they will plan a a large debridement of her chest wound in the next 48 hours. She remains on amiodarone and Elequis for anticoagulation due to atrial fibrillation. She continues on meropenem and vancomycin for her Lung empyema after robotically assisted left upper lobectomy for squamous cell carcinoma. He remains on bisoprolol for blood pressure control, but it remains somewhat elevated. Hemoglobin is dropped from 8.3 down to 6.4. A stat repeat is now 6.9. Her plat elets continue to be elevated, most likely reactive, now 1044. She remains hyponatremic at 133. She denies any significant chest pains, pressures, or shortness of breath other than with exertion. She denies any significant nausea or vomiting. Staff reports she is complaining some vaginal itching and irritation. Potassium is now up to 4.2 today. 02/01/2020 Wound cultures reporting gram-positive bacilli isolated. Maintained on vancomycin, Merrem. Continues having purulent drainage from lateral left chest incision site. Tested negative for coronavirus. Afebrile, WBC WNL. Hemoglobin 8.2. Telemetry sinus rhythm. Denies chest pain, palpitations. 02/02/2020 received Eliquis yesterday, surgery, rescheduled for tomorrow for 02/03/20. Hypertensive, hydralazine initiated yesterday. Drainage continues. Afebrile, WBC within normal limits. Maintaining O2 sats in the 90s on room air. Hemoglobin 10.1. 02/03/2020 NPO, Eliquis remains on hold. OR pending. Hypertensive. Hemoglobin 8.8. Continues maintaining O2 sats in the mid 90s on room air. Afebrile, WBC WNL. 02/04/2020 yesterday underwent left thoracotomey. total lung decortication, pectoralis major pedicle flap transposition into the left pleural space, cryoablation of the intercostal nerves, with placement of 3 left pleural chest tubes,tolerated procedure well. Left pleural chest tube insertion sites discomfort. Maintaining O2 sats in the 90s on room air. Incentive spirometer up to 1000. Maintained on vancomycin, Merrem Chest x-ray reporting surgical changes, chest tubes, complete opacified left hemothorax with mediastinal shift, improving subcutaneous emphysema. Eliquis remains on hold. Wound culture rep orting gram-positive bacilli. Telemetry sinus bradycardia. Hemoglobin 7.9, received 1 unit postop of packed RBCs in addition to IV fluid resuscitation, albumin. Borderline hypotension with systolic blood pressures in the low 90s, MAP 61. 02/05/2020 evaluated by infectious disease with antibiotics adjusted. Currently maintained on Rocephin and Flagyl. Renal function improving, creatinine down to 1.27. Hemoglobin down to 7,(EBL 300 of recent surgery) Maintaining O2 sats in the 90s on room air. Chest x-ray reporting 3 left-sided chest tubes, some subcutaneous emphysema along the left hemothorax, some increasing patchy opacity in the periphery of the right mid and lower lung, continued complete whiteout of the left hemithorax. Sodium 132. Yesterday hypotensive, requiring albumin, antihypertensives held. Currently systolic blood pressure in the 130s reported per staff without antihypertensives on board. 02/08/2020 maintaining O2 sats in the 90s on room air. Hemoglobin 8. M aintained on Rocephin and Flagyl . Chest x-ray reporting worsening multifocal alveolar right-sided airspace disease, confluent .Wound cultures positive for Actinomyces odontolyticus. Scheduled for PICC line placement today. Complains of left chest tubes insertion sites discomfort. 02/09/2020 Yesterday went down for PICC line, wearing 2 L nasal cannula, attempted to lie flat, went into respiratory distress, midline placed instead .O2 requirement significantly increased up to 50% airvo.Chest CT ordered yesterday, not completed as patient unable to lie flat.Maintaining O2 sats in the high 90s on 50% high flow/Airvo. Nonproductive cough. Chest x-ray reporting 3 chest tubes remain in place with near complete whiteout of the left hemothorax, very small portions of aerated lung remain unchanged. Right-sided airspace disease similar to minimally less confused. Received a dose of Levaquin yesterday as per ID in addition to vancomycin added to antibiotic regimen of Rocephin and Flagyl .creatinine 0.77 .No nausea, vomiting or diarrhea. Positive bowel movement yesterday. Blood sugars controlled. Afebrile, normal WBC. Sputum culture ordered. Hemoglobin 7.4. Wound VAC placed yesterday. Pro- calcitonin level trending down. Denies chest pain, palpitations. Telemetry sinus rhythm. 02/10/2020 currently on 45% high flow nasal cannula, maintaining O2 sats of 100%. Hemoglobin down to 7. Incentive spirometer up to 1000. Chest x-ray reporting complete opacification of the left hemothorax, 3 left-sided chest tubes, some left lateral apical free air versus residual lung aeration-stable, patchy infiltrate right lung-stable. Denies increase in shortness of breath. Denies chest pain, palpitations. Denies lightheadedness, dizziness or focal deficits. Afebrile, normal WBC. Magnesium 1.5. Blood sugars controlled. As patient was unable to proceed with CT yesterday, d-dimer ordered, elevated 1.6. Patient is going down this morning to attempt CT with contrast. 02/11/2020 CT performed yesterday morning small residual airspace disease, previous cavitary lesion significantly smaller, multiple left-sided chest tubes present, groundglass opacity; feels developing from comparison study, possible atypical pneumonia, pulmonary edema. Nonproductive cough. Yesterday afternoon, anxiety increased, with subsequent increase in O2 up to 10 L nasal cannula. Chest x-ray this morning reporting stable, extensive left-sided surgical change, diffuse left lung edema and/or infiltrates, persistent less prominent multifocal right mid to lower lung acute infiltrates and/or edema without mediastinal shift. This morning FiO2 weaned down to 3 L, maintaining O2 sats in the low 90 s. Hemoglobin 6.8. Scheduled to have her mid and posterior left chest tubes discontinued with anterior chest tube being left in. More motivated this morning, participated with physical therapy, ambulating in room, tolerating exertion well. 02/12/20 Continues to well, hemoglobin 9.2, status post transfusion 1 unit packed RBCs yesterday. Down to one left pleural chest tube, maintaining O2 sats in the 90s on 2 L nasal cannula. IS up to 750-1000ml.IV antibiotics as per infectious disease. Chest x-ray noted , loculated air of a residual left pneumothorax, stable multifocal right-sided airspace disease.PICC line placement pending as per ID. blood sugars controlled. Afebrile, WBC up to 13. Echo reporting limited study preserved LV function, EF 55-60%, small generalized pericardial effusion. Objective - Vital Signs Vital signs: Vital Signs Temp 97.7 F 02/12/20 04:00 Pulse 75 02/12/20 07:30 Resp 18 02/12/20 04:00 BP 156/75 02/12/20 04:00 Pulse Ox 91 L 02/12/20 04:00 Intake & Output 02/11/20 02/12/20 02/12/20 18:59 06:59 18:59 Intake Total 1260 310 180 Output Total 501 Balance 1260 -191 180 Weight 72.5 kg 66.1 kg Intake: Oral 1260 180 Blood Product 0 310 Rc As-3 Unit 0 310 [id number] Output: Chest Tube Drainage 1 Chest Tube Left Lateral 1 Chest Urine 500 Other: Voiding Method Bedside Commode Bedside Commode # Voids 2 1 # Bowel Movements 1 ABP, PAP, CO, CI - Last Documented Arterial Blood Pressure 170/95 - Exam GENERAL: Sitting up in chair, no acute distress NECK: No JVD. No thyroid enlargement. No LNs CARDIOVASCULAR: S1, S2 regular. No murmur RESPIRATION: Nonlabored. Breath sounds diminished. Occasional scattered fine crackles. Left pleural chest tubes 1.wound VAC with drsing clean dry and intact. ABDOMEN: Soft, nontender . No guarding. no masses palpable. Positive Bowel sounds. LEGS: No edema, wearing knee-high JOHAN hose. no swelling. No clubbing, no cyanosis PSYCHIATRY: Alert and oriented X3, mood and affect normal. NERVOUS SYSTEM: Cranial N 2-12 grossly normal. Moves all 4 limbs. No focal deficits. Strength and sensation grossly intact. Skin: no rashes. Microbiology 02/03/20 15:46 Other - Other Gram Stain - Final 02/03/20 15:46 Other - Other Wound Culture - Final Actinomyces odontolyticus 02/03/20 15:46 Other - Other Anaerobic Culture - Final 01/29/20 09:00 Chest Gram Stain - Final 01/29/20 09:00 Chest Wound Culture - Final Actinomyces odontolyticus - Labs CBC & Chem 7: 02/12/20 07:19 02/12/20 07:19 Labs: Abnormal Lab Results - Last 24 Hours (Table) 02/11/20 02/11/20 02/11/20 Range/Units 11:54 12:19 16:37 WBC (3.8-10.6) k/uL RBC (3.80-5.40) m/uL Hgb (11.4-16.0) gm/dL Hct (34.0-46.0) % RDW (11.5-15.5) % Plt Count (150-450) k/uL Neutrophils # (1.3-7.7) k/uL Lymphocytes # (1.0-4.8) k/uL Chloride (98-107) mmol/L Carbon Dioxide (22-30) mmol/L Glucose (74-99) mg/dL POC Glucose (mg/dL) 122 H 236 H (75-99) mg/dL Calcium (8.4-10.2) mg/dL Crossmatch See Detail 02/11/20 02/12/20 02/12/20 Range/Units 19:58 05:59 07:19 WBC 13.0 H (3.8-10.6) k/uL RBC 3.43 L (3.80-5.40) m/uL Hgb 9.2 L D (11.4-16.0) gm/dL Hct 29.6 L (34.0-46.0) % RDW 16.2 H (11.5-15.5) % Plt Count 769 H (150-450) k/uL Neutrophils # 11.1 H (1.3-7.7) k/uL Lymphocytes # 0.9 L (1.0-4.8) k/uL Chloride (98-107) mmol/L Carbon Dioxide (22-30) mmol/L Glucose (74-99) mg/dL POC Glucose (mg/dL) 142 H 127 H (75-99) mg/dL Calcium (8.4-10.2) mg/dL Crossmatch 02/12/20 Range/Units 07:19 WBC (3.8-10.6) k/uL RBC (3.80-5.40) m/uL Hgb (11.4-16.0) gm/dL Hct (34.0-46.0) % RDW (11.5-15.5) % Plt Count (150-450) k/uL Neutrophils # (1.3-7.7) k/uL Lymphocytes # (1.0-4.8) k/uL Chloride 97 L (98-107) mmol/L Carbon Dioxide 33 H (22-30) mmol/L Glucose 149 H (74-99) mg/dL POC Glucose (mg/dL) (75-99) mg/dL Calcium 8.0 L (8.4-10.2) mg/dL Crossmatch Assessment and Plan Assessment: -Empyema of the left pleural space ,status post left thoracotomy, total lung decortication, pectoralis major pedicle flap into left pleural space, cryoablation of the intercostal nerves. Cultures reporting actinomyces. Current Visit: Yes Status: Acute Priority: High Code(s): J94.8 - OTHER SPECIFIED PLEURAL CONDITIONS SNOMED Code(s): 06154402 -Possible Right-sided pneumonia, gram-positive, not present on admission -Acute CHF exacerbation, diastolic dysfunction secondary fluid overload - Acute respiratory failure secondary to the above, status post Airvo, - Essential (primary) hypertension Current Visit: No Status: Chronic Priority: Medium Code(s): I10 - ESSENTIAL (PRIMARY) HYPERTENSION SNOMED Code(s): 51490860 -Hypokalemia, currently resolved Current Visit: Yes Status: Acute Priority: High Code(s): E87.6 - HYPOKALEMIA SNOMED Code(s)73255141 - Acute post op blood loss anemia , expected, status post transfusion and packed RBCs Current Visit: Yes Status: Chronic Priority: Medium Code(s): D50.9 - IRON DEFICIENCY ANEMIA, UNSPECIFIED SNOMED Code(s): 575704533 -Poorly differentiated squamous cell CA, left upper lobe Current Visit: Yes Status: Acute Code(s): C34.90 - MALIGNANT NEOPLASM OF UNSP PART OF UNSP BRONCHUS OR LUNG SNOMED Code(s): 877156022 - S/P lobectomy of the left upper lung , 12/31/2019 Current Visit: Yes Status: Chronic Priority: Low Code(s): Z90.2 - ACQUIRED ABSENCE OF LUNG [PART OF] SNOMED Code(s): 90387210663356526 - hypomagnesemia - Hyponatremia Current Visit: Yes Status: Acute Code(s): E87.1 - HYPO-OSMOLALITY AND HYPONATREMIA SNOMED Code(s): 51118807 -Major depressive disorder, recurrent, moderate Current Visit: No Status: Acute Code(s): F33.1 - MAJOR DEPRESSIVE DISORDER, RECURRENT, MODERATE SNOMED Code(s): 248786121 -Type 2 diabetes mellitus without complications Current Visit: No Status: Acute Code(s): E11.9 - TYPE 2 DIABETES MELLITUS WITHOUT COMPLICATIONS SNOMED Code(s): 491995163 - Fibromyalgia Current Visit: Yes Status: Acute Code(s): M79.7 - FIBROMYALGIA SNOMED Code(s): 859486418 - hypoproteinemia - Paroxysmal atrial fibrillation, Eliquis on hold Current Visit: Yes Status: Chronic Priority: Medium Code(s): I48.0 - PAROXYSMAL ATRIAL FIBRILLATION SNOMED Code(s): 618051474 - Midline placement. Plan: Continue on current medication regime ,monitoring and symptomatic treatment. Continue on antibiotics with PICC line placement today as per infectious disease . Cardiothoracic surgery discussing removal of last chest tube . Increase activity/ambulation as tolerated. Maintain aggressive pulmonary toileting with incentive spirometer reinforced. Prognosis guarded given multiple complex medical issues. The impression and plan of care has been dictated as directed. : I performed a history and examination of this patient, discussed the same with the dictator. I agree with the dictator's note ,documented as a scribe. Any additional findings or plans will be noted.
[2020-02-12 12:37] LABS: INR 1.1 (<1.2); Prothrombin Time 10.9 sec (9.0-12.0)
--- NOTE | 2020-02-12 12:50 | P.PN ---
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 Recent history left upper lobectomy for poorly differentiated squamous cell carcinoma This is a 55-year-old female patient who follows with Dr. Leroy on an outpatient basis. She has a past medical history of poorly differentiated squamous cell carcinoma, status post left upper lobectomy on 12/31/2019, hyperte nsion, hyperlipidemia, chronic tobacco abuse, type 2 diabetes mellitus, cervical cancer status post hysterectomy, anxiety and bipolar disorder. On 01/28/2020 she had a follow-up visit with Dr. Teddy Wilkins for her pathology results of her recent left upper lobectomy. Upon exam of her surgical incisions there was a fluctuant area which was painful to touch on her left chest. Subsequently she was started on oral Keflex. Yesterday morning she developed some drainage from that incision site with the fluctuant area, leaking foul smelling yellowish fluid. Her initial lab results showed a WBC count 12.0, Hgb 8.3, neutrophils 59%, positive band neutrophil percent 24 and neutrophil numbers 9.0. A chest x- ray was completed which demonstrated a normal and the left hydropneumothorax, with no significant interval changes. She was admitted to observation to determine further treatment plans and surgical incision with consultation placed to Dr. Teddy Wilkins. On 02/02/2020 patient was seen on follow-up on the fourth floor medical surgical unit. She is resting comfortably in bed, she is alert and oriented 3. Remains hemodynamically stable and is in no acute distress. She has been afebrile for the last 24 hours. Oxygen saturations are 96% on room air. Her left chest wound culture sensitivities remain pending, currently showing gram-positive bacilli. She is on meropenem and vancomycin for antibiotic coverage. Denies any complaints of shortness of breath or pain. The patient states that she had a shower this morning and that her left chest drainage site had minimal drainage from it in the last 12 hours. She was scheduled for a left thoracotomy with decortication for this morning to be performed by Dr. Teddy Wilkins. The procedure was changed and rescheduled for tomorrow 02/03/2020 as Elquis was stopped yesterday morning. Lab results today show a WBC count of 9.0, hemog lobin 10.1, and platelets 962. She is demonstrating good use of her incentive spirometry and achieving 1000 mL. On 02/03/2020 patient is seen in follow-up on general medical floor. She is calm and comfortable, vital signs are stable, room air pulse ox 96%, afebrile, respirations are nonlabored, left chest wound drainage is small amount, reddish in color today. Wound culture showed gram-positive bacilli, patient remains on combination of meropenem and vancomycin for possibility of empyema bro nchopleural fistula, patient has been scheduled for surgical decortication by Dr. Wilkins today. No acute events overnight. On 02/09/2020 patient seen in follow-up on selective care unit. Yesterday patient had episode of acute desaturation and worsening dyspnea and she was laid down flat for PICC line insertion. The procedure was not completed, patient returned to her room, she required placement on high flow oxygen, she could not tolerate BiPAP support. She was given a dose of oral Lasix, her chest x-ray yesterday showed worsening airspace disease throughout the right lung, and stable appearance of left hemithorax with 3 chest tubes with very small portion of aerated lung on the left. Patient has diuresed, she is in negative fluid balance, she is down 1.1 kg since yesterday, her proBNP came back at 4760, IV fluids have been cut back, yesterday's pro-calcitonin was trending down at 0.31, however it's back up again at 1.10, antibiotic coverage has been switched to Levaquin and vancomycin, ID service is following, patient has been afebrile. Today's labs have been reviewed on Web blood cell count of 9.8, hemoglobin of 7.4, electrolytes within normal limits, renal profile unremarkable On 02/10/2020 patient seen in follow-up on selective care unit, remains on AIRVO currently a 60 L/m, and FiO2 of 45%, and a pulse ox in the 100%, will Probably weaning FiO2 further, she has received additional dose of Lasix yesterday, she has diuresed, her weight is down by 0.9 kg since yesterday, today's chest x-ray shows improvement in the density of the patchy infiltrate in the right lung, and stable opacification of the left hemithorax with 3 left-sided chest tubes in place. She remains on antibiotics for left lung empyema with cultures positive for actinomycosis, current antibiotic coverage including Levaquin and vancomycin. ID service is following. D-dimer came back elevated at 1.66, CT chest with contrast has been obtained showing no clear evidence of pulmonary embolism, small amount of residual airspace disease on the left, and previous cavitary lesion is smaller, groundglass opacities throughout the lung cornejo likely related to us ability of pulmonary edema. Today's labs have been reviewed showing white blood cell count trending down, 7.9 on today's labs, hemoglobin 7.0, electrolytes and renal profile are unremarkable, patient has had no fever or chills, she still feels short of breath although does not appear to be in any acute distress. All 3 left-sided chest tubes including left lateral, left posterior and another left lateral are to waterseal, with serosanguineous drainage. CT surgery is following On 02/11/2020 patient seen in follow-up on selective care unit, she has been diuresed, today's chest x-ray shows stable extensive left-sided surgical changes with chest tubes in place, diffuse left lower edema and infiltrates, and persistent multifocal right mid to lower lung infiltrates with slight improvement. SHe is in negative fluid balance, received another dose of IV Lasix today. She remains on antibiotics in the form of Rocephin, and vancomycin and Flagyl. Her wound culture from the left chest wound showed actinomycosis. Patient has been afebrile, FiO2 is down to 3 L, her pulse ox is 92%, she is breathing easier, wound VAC is in place on the left chest wound. CT surgery is following, 3 left chest tubes are in place, and there has been no drainage out of the left posterior chest tube, left lateral chest tube has put out 100 mL o gilbert the last [address] surgery is planning on removing the 2 posterior chest tubes today On 02/12/2020 patient seen in follow-up on selective care unit, she is awake and alert, and continues to improve, yesterday she received an additional dose of Lasix, she made about 1300 mL in urine output, today's chest x-ray shows improvement in the appearance of multifocal right-sided airspace disease. Yesterday she had 2 posterior left-sided chest tubes removed, and she still has the remaining left anterior chest tube in place. Chest x-ray showed loculated air of a residual pneumothorax on the left and postsurgical changes on the left. Minimal drainage out of the remaining left-sided chest tube. Lung sounds are diminished on the left, and clear on the right side. FiO2 is down to 2 L, with a pulse ox of 96%, wound VAC is in place on the left chest wall wound. She remains on antibiotics, currently with Rocephin, Diflucan and vancomycin, wound culture showed actinomycosis odontolyticus. Objective - Vital Signs Vital signs: Vital Signs Temp 98 F 02/12/20 08:30 Pulse 70 02/12/20 11:16 Resp 19 02/12/20 08:30 BP 143/75 02/12/20 08:30 Pulse Ox 96 02/12/20 08:30 Intake & Output 02/11/20 02/12/20 02/12/20 18:59 06:59 18:59 Intake Total 1260 310 180 Output Total 501 Balance 1260 -191 180 Weight 72.5 kg 66.1 kg Intake: Oral 1260 180 Blood Product 0 310 Rc As-3 Unit 0 310 [id number] Output: Chest Tube Drainage 1 Chest Tube Left Lateral 1 Chest Urine 500 Other: Voiding Method Bedside Commode Bedside Commode # Voids 2 1 # Bowel Movements 1 ABP, PAP, CO, CI - Last Documented Arterial Blood Pressure 170/95 - Exam GENERAL EXAM: Alert, very pleasant, 55-year-old white female, currently on 3 l/min with pulse ox of 92% comfortable in no apparent distress. HEAD: Normocephalic/atraumatic. EYES: Normal reaction of pupils, equal size. Conjunctiva pink, sclera white. NOSE: Clear with pink turbinates. THROAT: No erythema or exudates. NECK: No masses, no JVD, no thyroid enlargement, no adenopathy. CHEST: No chest wall deformity. Symmetrical expansion. Patient has 2 post erior left-sided chest tubes removed, the remaining left anterior chest tube remains in place with scant amount of serosanguineous output to waterseal. Wound VAC is in place to the left chest wall wound LUNGS: Equal air entry with no crackles, wheeze, rhonchi or dullness. CVS: Regular rate and rhythm, normal S1 and S2, no gallops, no murmurs, no rubs ABDOMEN: Soft, nontender. No hepatosplenomegaly, normal bowel sounds, no guarding or rigidity. EXTREMITIES: No clubbing, no edema, no cyanosis, 2+ pulses and upper and lower extremities. MUSCULOSKELETAL: Muscle strength and tone normal. SPINE: No scoliosis or deformity SKIN: Wound on the left posterior chest wall, with drainage of purulent se rosanguineous drainage. CENTRAL NERVOUS SYSTEM: Alert and oriented -3. No focal deficits, tone is normal in all 4 extremities. PSYCHIATRIC: Alert and oriented -3. Appropriate affect. Intact judgment and insight. - Labs CBC & Chem 7: 02/12/20 07:19 02/12/20 07:19 Labs: Abnormal Lab Results - Last 24 Hours (Table) 02/11/20 02/11/20 02/11/20 Range/Units 12:19 16:37 19:58 WBC (3.8-10.6) k/uL RBC (3.80-5.40) m/uL Hgb (11.4-16.0) gm/dL Hct (34.0-46.0) % RDW (11.5-15.5) % Plt Count (150-450) k/uL Neutrophils # (1.3-7.7) k/uL Lymphocytes # (1.0-4.8) k/uL Chloride (98-107) mmol/L Carbon Dioxide (22-30) mmol/L Glucose (74-99) mg/dL POC Glucose (mg/dL) 236 H 142 H (75-99) mg/dL Calcium (8.4-10.2) mg/dL Crossmatch See Detail 02/12/20 02/12/20 02/12/20 Range/Units 05:59 07:19 07:19 WBC 13.0 H (3.8-10.6) k/uL RBC 3.43 L (3.80-5.40) m/uL Hgb 9.2 L D (11.4-16.0) gm/dL Hct 29.6 L (34.0-46.0) % RDW 16.2 H (11.5-15.5) % Plt Count 769 H (150-450) k/uL Neutrophils # 11.1 H (1.3-7.7) k/uL Lymphocytes # 0.9 L (1.0-4.8) k/uL Chloride 97 L (98-107) mmol/L Carbon Dioxide 33 H (22-30) mmol/L Glucose 149 H (74-99) mg/dL POC Glucose (mg/dL) 127 H (75-99) mg/dL Calcium 8.0 L (8.4-10.2) mg/dL Crossmatch 02/12/20 Range/Units 11:19 WBC (3.8-10.6) k/uL RBC (3.80-5.40) m/uL Hgb (11.4-16.0) gm/dL Hct (34.0-46.0) % RDW (11.5-15.5) % Plt Count (150-450) k/uL Neutrophils # (1.3-7.7) k/uL Lymphocytes # (1.0-4.8) k/uL Chloride (98-107) mmol/L Carbon Dioxide (22-30) mmol/L Glucose (74-99) mg/dL POC Glucose (mg/dL) 134 H (75-99) mg/dL Calcium (8.4-10.2) mg/dL Crossmatch Assessment and Plan Plan: Assessment: #1. Acute empyema of the left chest, status post left thoracotomy, total lung decortication, pectoralis major pedicle flap transposition into the left pleural space, and cryoablation of the intercostal nerves, postoperative day #9 #2. Acute exacerbation of CHF, fluid overload previously documented diastolic dysfunction, from echocardiogram on 01/02/2020 EF is 55-60%, mild MR, mild TR, no evidence of PAH #3. Superficial wound, draining thin foul-smelling yellowish drainage, with b lood cultures positive for gram-positive bacilli, and is on, on meropenem and vancomycin, and she is going for surgical decortication today on 02/03/[address] Wilkins. Wound cultures positive for actinomyces odontolyticus, current antibiotic coverage is with cefepime, Flagyl #4. History of poorly differentiated squamous cell carcinoma, status post left upper lobectomy on 12/31/2019 #5. History of hypertension #6. History of hyperlipidemia #7. Previous tobacco dependence #8. Type 2 diabetes #9. History of cervical cancer status post hysterectomy #10. History of anxiety/bipolar disorder Plan: Today's chest x-ray has been reviewed showing stable postsurgical changes on the left, and slightly improved air space disease on the right. FiO2 is down to 2 L, patient is breathing much easier, remaining chest tube on the left draining minimal drainage, management per CT surgery. Antibiotics per ID service recommendations, vital signs are stable, increase activity as tolerated. Tylor freitas will probably need a PICC line put in on Saturday for infusion of antibiotics after discharge. Right now she has a midline in place for IV antibiotics, increase activity as tolerated. We'll continue to follow I performed a history & physical examination of the patient and discussed their management with my nurse practitioner, Bria Cid. I reviewed the nurse practitioner's note and agree with the documented findings and plan of care. Lung sounds are positive for diffuse wheezes throughout the lung cornejo. The findings and the impression was discussed with the patient. I attest to the documentation by the nurse practitioner. Time with Patient: Less than 30
[2020-02-12] MEDS: FLUCONAZOLE 100 MG TAB PO ONE ×2 (12:52→14:16)
[2020-02-12] MEDS ORDERED: FLUCONAZOLE 100 MG TAB PO ONE (13:30)
[2020-02-12 16:37] LABS: Glucose,Whole Blood 208 mg/dL (75-99)
[2020-02-12] MEDS: metFORMIN 500 MG TAB PO SCH (17:56)
[2020-02-12 20:07] LABS: Glucose,Whole Blood 106 mg/dL (75-99)
[2020-02-12] MEDS: SENNOSIDES-DOCUSATE SODIUM 1 EACH TAB PO SCH (21:36)
[2020-02-13] MEDS: HEPARIN SODIUM,PORCINE 5,000 UNIT/ML 1 ML VIAL SQ SCH ×3 (02:34→15:05)
--- NOTE | 2020-02-13 02:51 | PN ---
PROGRESS NOTE DATE OF SERVICE: 02/12/2020 REASON FOR FOLLOW UP: In pain. INTERVAL HISTORY: The patient is currently afebrile. The patient is breathing more comfortably. The patient denies having chest pain. Her cough has decreased in intensity. Not bringing up any sputum. No nausea, no vomiting. No abdominal pain or diarrhea. PHYSICAL EXAMINATION: Blood pressure 117/62 with a pulse of 68, temperature 97.8. She is 96% on 2 L. General description is a middle-aged female up in the chair in no distress. Respiratory system: Unlabored breathing, decreased breath sounds at the base. No wheeze. Heart S1, S2. Regular rate and rhythm. Abdomen soft, no tenderness. LABS: Hemoglobin 9.8, white count 13, with a BUN of 10, creatinine 0.82. DIAGNOSTIC IMPRESSION AND PLAN: 1. Patient with left-side empyema status post thoracotomy and chest tube. Cultures have been negative. The patient is covered with Rocephin and Flagyl because of her PENICILLIN ALLERGY. 2. The patient has slightly elevated white count, possibly related to underlying oropharyngeal candidiasis. Will add Diflucan, Nystatin swish and swallow and monitor white count closely. MMODL / IJN: [id number] /
[2020-02-13 06:16] LABS: Glucose,Whole Blood 144 mg/dL (75-99)
[2020-02-13] MEDS: PANTOPRAZOLE 40 MG TABLET PO SCH (06:28)
[2020-02-13] MEDS: INSULIN ASPART (NovoLOG) 100 UNIT/ML VIAL SQ SCH ×4 (06:28→20:27)
[2020-02-13] MEDS: metFORMIN 500 MG TAB PO SCH ×2 (06:28→17:08)
--- NOTE | 2020-02-13 07:23 | XR ---
EXAMINATION TYPE: XR chest 1V portable DATE OF EXAM: 02/13/2020 HISTORY: post op thoracotomy. REFERENCE: Previous study dated 02/12/2020. FINDINGS: There is a left pleural drain in place. There is an air-fluid level in the left hemithorax as well as other air outlining the mediastinum, unchanged from previous. Interstitial prominence on t he right has resolved. Heart size is obscured. IMPRESSION: IMPROVED AERATION, RIGHT LUNG.
[2020-02-13 07:39] LABS: African American GFR (CKD) >90 (>60 ml/min/1.73 sqM); Anion Gap 7 mmol/L; Blood Urea Nitrogen 8 mg/dL (7-17); Calcium 8.1 mg/dL (8.4-10.2); Carbon Dioxide 28 mmol/L (22-30); Chloride 99 mmol/L (98-107); Glucose 122 mg/dL (74-99); Magnesium 1.6 mg/dL (1.6-2.3); Non-African American GFR(CKD) 86 (>60 ml/min/1.73 sqM); Potassium 3.5 mmol/L (3.5-5.1); Sodium 134 mmol/L (137-145)
[2020-02-13] MEDS: metroNIDAZOLE 500 MG TAB PO SCH ×3 (08:01→20:27)
[2020-02-13] MEDS: DULoxetine HCL 60 MG CAPSULE.DR PO SCH (08:01)
[2020-02-13] MEDS: ASCORBIC ACID 500 MG TAB PO SCH (08:01)
[2020-02-13] MEDS: traMADol 50 MG TAB PO SCH ×3 (08:01→20:27)
[2020-02-13] MEDS: amLODIPine 10 MG TAB PO SCH (08:02)
[2020-02-13] MEDS: hydrALAZINE HCL 50 MG TAB PO SCH ×4 (08:03→20:26)
[2020-02-13] MEDS: BISOPROLOL 5 MG TAB PO SCH (08:03)
[2020-02-13] MEDS: VALSARTAN 160 MG TAB PO SCH (08:03)
[2020-02-13 08:05] LABS: Basophils % (A) 0 %; Eosinophils # (A) 0.1 k/uL (0-0.7); Eosinophils % (A) 1 %; HCT 28.8 % (34.0-46.0); HGB 8.9 gm/dL (11.4-16.0); Hypochromasia Marked; Lymphocytes # (A) 0.9 k/uL (1.0-4.8); Lymphocytes % (A) 8 %; MCHC 30.8 g/dL (31.0-37.0); MCV 87.9 fL (80.0-100.0); Mean Platelet Volume 7.4; Monocytes # (A) 0.5 k/uL (0-1.0); Monocytes % (A) 5 %; Neutrophils # (A) 9.5 k/uL (1.3-7.7); Neutrophils % (A) 84 %; Platelet Count 775 k/uL (150-450); Poikilocytosis Slight; RBC 3.28 m/uL (3.80-5.40); WBC 11.3 k/uL (3.8-10.6)
[2020-02-13] MEDS: MAGNESIUM OXIDE 400 MG TAB PO SCH ×2 (08:07→20:27)
[2020-02-13] MEDS ORDERED: FUROSEMIDE 10 MG/ML 4 ML VIAL IV STA (08:41)
--- NOTE | 2020-02-13 09:03 | P.PN ---
Subjective Progress Note Date: 02/13/20 Principal diagnosis: This is a 55-year-old female patient who follows with Dr. Leroy on an outpatient basis. She has a past medical history of poorly differentiated squamous cell carcinoma, status post left upper lobectomy on 12/31/2019, hypertension, hyperlipidemia, chronic tobacco abuse, type 2 diabetes mellitus, cervical cancer status post hysterectomy, anxiety and bipolar disorder. On 01/28/2020 she had a follow-up visit with Dr. Teddy Wilkins for her pathology results of her recent left upper lobectomy. Upon exam of her surgical incisions there was a fluctuant area which was painful to touch on her left chest. Subsequently she was started on oral Keflex. Yesterday morning she developed some drainage from that incision site with the fluctuant area, leaking foul smelling yellowish fluid. Her initial lab results showed a WBC count 12.0, Hgb 8.3, neutrophils 59%, positive band neutrophil percent 24 and neutrophil numbers 9.0. A chest x-ray was completed which demonstrated a normal and the left hydropneumothorax, with no significant interval changes. She was admitted to observation to determine further treatment plans and surgical incision with consultation placed to Dr. Teddy Wilkins. POD #10 left thoracotomey. total lung decortication, pectoralis major pedicle flap transposition into the left pleural space, cryoablation of the intercostal nerves. Postoperative acute blood loss anemia, an expected outcome of surgery. Postoperative hypotension, an expected outcome due to hypovolemia. On 02/13/2020 the patient was seen in follow-up at her bedside on the cardiac stepdown unit. She is awake, alert and oriented 3, she is in no acute distress and is hemodynamically stable. She has been afebrile the last 24 hours, her oxygen saturations are 95% on 2 L nasal cannula and she is achieving 750-1000 mL on her incentive spirometry. She denies any complaints of pain this morning, although she is reporting episodes of shortness of breath with activity. The patient states that she is starting to have somewhat of a loose cough with scant amount of thin white sputum production. She is awaiting a PICC line to be placed for outpatient antibiotic treatments. Laboratory results morning show a WBC count 11.3, hemoglobin 8.9, platelets 775, BUN 8 and creatinine 0.78. She was given a dose of Lasix and Diamox yesterday. Continues on Rocephin, oral Flagyl and Diflucan which is managed by infectious disease. Left pleural chest tube remains in place to water seal. No air leak is noted. Draining scant thin serosanguineous drainage with 20 mL output in the last 24 hours. Wound VAC dressing remains in place to her left chest superficial wound, the dressing was changed yesterday and is on a Saturday schedule. A limited 2-D echocardiogram was completed on 02/11/2020 which demonstrated an overall left ventricular systolic function being normal with an ejection fraction between 55- 60% and a small generalized pericardial effusion. Objective - Vital Signs Vital signs: Vital Signs Temp 98.1 F 02/13/20 08:00 Pulse 63 02/13/20 08:00 Resp 18 02/13/20 08:00 BP 154/80 02/13/20 08:00 Pulse Ox 100 02/13/20 08:00 Intake & Output 02/12/20 02/13/20 02/13/20 18:59 06:59 18:59 Intake Total 960 240 Output Total 19 15 Balance 941 225 Weight 65.9 kg Intake: Oral 960 240 Output: Chest Tube Drainage 19 15 Chest Tube Left Lateral 19 15 Chest Other: # Voids 1 1 # Bowel Movements 1 ABP, PAP, CO, CI - Last Documented Arterial Blood Pressure 170/95 - Constitutional General appearance: Present: average body habitus, cooperative, no acute d istress - EENT Eyes: Present: PERRLA, normal appearance ENT: Present: hearing grossly normal - Neck Details: Neck is supple, no JVD. - Respiratory Details: Lung sounds are essentially clear to her right lobes, diminished to her left chest. No wheezes, rhonchi or crackles. Respirations are symmetrical and nonlabored. Oxygen saturation is 95% on 2 L nasal cannula. Left pleural chest tube in place to water seal. No air leak is present. Scant serosanguineous drainage with 20 mL output in the last 24 hours. - Cardiovascular Details: Regular rhythm and rate. S1 and S2 present, negative for S3, gallop or murmur. Remote telemetry showing normal sinus rhythm heart rate 67. - Gastrointestinal Gastrointestinal Comment(s): Abdomen is soft, nontender nondistended. Active bowel sounds present all 4 quadrants. No guarding or rigidity. No organomegaly appreciated. - Integumentary Integumentary Comment(s): Skin is warm and dry. No cyanosis is present. Positive clubbing to both hands. Wound VAC dressing is clean, dry and intact to her left chest superficial wound. - Neurologic Neurologic: Present: CNII-XII intact - Musculoskeletal Musculoskeletal: Present: gait normal, generalized weakness, strength equal bilaterally - Psychiatric Psychiatric: Present: A&O x's 3, appropriate affect, intact judgment & insight - Allied health notes Allied health notes reviewed: nursing - Labs CBC & Chem 7: 02/13/20 06:34 02/13/20 06:34 Labs: Abnormal Lab Results - Last 24 Hours (Table) 02/11/20 02/12/20 02/12/20 Range/Units 12:19 11:19 16:36 WBC (3.8-10.6) k/uL RBC (3.80-5.40) m/uL Hgb (11.4-16.0) gm/dL Hct (34.0-46.0) % MCHC (31.0-37.0) g/dL RDW (11.5-15.5) % Plt Count (150-450) k/uL Sodium (137-145) mmol/L Glucose (74-99) mg/dL POC Glucose (mg/dL) 134 H 208 H (75-99) mg/dL Calcium (8.4-10.2) mg/dL Crossmatch See Detail 02/12/20 02/13/20 02/13/20 Range/Units 19:53 06:15 06:34 WBC 11.3 H (3.8-10.6) k/uL RBC 3.28 L (3.80-5.40) m/uL Hgb 8.9 L (11.4-16.0) gm/dL Hct 28.8 L (34.0-46.0) % MCHC 30.8 L (31.0-37.0) g/dL RDW 16.0 H (11.5-15.5) % Plt Count 775 H (150-450) k/uL Sodium (137-145) mmol/L Glucose (74-99) mg/dL POC Glucose (mg/dL) 106 H 144 H (75-99) mg/dL Calcium (8.4-10.2) mg/dL Crossmatch 02/13/20 Range/Units 06:34 WBC (3.8-10.6) k/uL RBC (3.80-5.40) m/uL Hgb (11.4-16.0) gm/dL Hct (34.0-46.0) % MCHC (31.0-37.0) g/dL RDW (11.5-15.5) % Plt Count (150-450) k/uL Sodium 134 L (137-145) mmol/L Glucose 122 H (74-99) mg/dL POC Glucose (mg/dL) (75-99) mg/dL Calcium 8.1 L (8.4-10.2) mg/dL Crossmatch - Imaging and Cardiology Chest x-ray: report reviewed, image reviewed Assessment and Plan Assessment: 1. Empyema left chest status post left upper lobectomy, status post left thoracotomy, total lung decortication, pectoralis major pedicle flap richardson sposition into the left pleural space, cryoablation of intercostal nerves. 2. Superficial wound, with culture from 01/29/2020 positive for Actinomyces odontolyticus. Currently on Rocephin and Flagyl managed by infectious disease. Wound VAC dressings Saturday and Saturday. 3. History of poorly differentiated squamous cell carcinoma, status post left upper lobectomy on 12/31/2019 4. History of hypertension 5. History of hyperlipidemia 6. Previous tobacco dependence 7. Type 2 diabetes mellitus 8. History of cervical cancer status post hysterectomy 9. History of anxiety/bipolar disorder 10. Postoperative acute blood loss anemia, an expected outcome 11. Postoperative hypotension, an expected outcome, resolved Plan: 1. Keep left pleural in place and to waterseal. Continue to record accurate I's and O's. Monitor for air leak. 2. Continue to encourage use of her incentive spirometry 10 times an hour while awake. 3. Continue to encourage smoking cessation. 4. Continue to hold Eliquis. No further episodes of atrial fibrillation. Continue subcu heparin /knee-high JOHAN hose and sequential compression devices for DVT prophylaxis. 5. Dressing changed to her left chest yesterday 02/12/2020 using black granufoam sponge and connected to the wound VAC. Continue to change wound VAC Saturday. Wound measurements taken today and measuring 4 cm x 1 cm x 1.5 cm. 6. Culture obtained in the operating room 02/03/2020 shows Actinomyces odontolyticus. Initial culture from her left chest wound from 01/29/2020 also showed Actinomyces odontolyticus continue Rocephin, and by mouth Flagyl managed by infectious disease. She was also started on Diflucan by infectious disease. 7. Continue GI and DVT prophylaxis. 8. Out of bed for all meals. Increase activity as tolerated with walking in the room. Physical therapy following. 9. Lasix 40 mg IV 1 now. 10. Continue to monitor daily labs and chest x-rays. Replace electrolytes per protocol. 11. Continue to wean oxygen as tolerated, to keep sats greater than or equal to 92%. Bronchodilator management per pulmonary medicine service. 12. The patient's Gustavo was updated on her care today will present at her bedside, per phone. 13. Order for PICC line placed yesterday for outpatient antibiotic treatments. 14. More recommendations to follow based on patient's clinical course. Time with Patient: Less than 30
[2020-02-13] MEDS: MAGNESIUM SULFATE-D5W PMX 1 GM in DEXTROSE/WATER 1 100ML.BAG IVPB SCH ×2 (09:56→11:25)
[2020-02-13] MEDS: POTASSIUM CHLORIDE ER 20 MEQ TAB.ER PO SCH ×2 (09:56→11:24)
--- NOTE | 2020-02-13 11:01 | P.PN ---
Subjective Progress Note Date: 02/13/20 Principal diagnosis: 55-year-old white female with a [id number] smoking history, quit in October 2019. 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 Patient presented emergency room with complaints of foul-smelling fluid that had leaked out of her chest. 02/13/2020 Patient sitting up in bed resting comfortably, alert and oriented 3, follow commands. She appears to be hematoma is stable no complaints at this time. She is afebrile with temperature 98.1 oral, pulse rate of 63 sinus rhythm, respiratory rate of 18, a pressure of 154/80, and pulse ox 100% on 2 L nasal cannula. States using her incentive spirometry 10 times every hour and is able to get it to 1 L at this time. She does state she does get short of breath with activity at times. Today's labs white blood cell count 1.3,hemoglobin of 8.9, with hematocrit of 28.8 and with a platelet count of 775. Today's chemistry sodium 134,potassium of 3.5, bilirubin of 8 and creatinine of 0.78 with a glucose of 122. Discussed the need with her to increase activity and utilization of the incentive spirometer. Objective - Vital Signs Vital signs: Vital Signs Temp 98.1 F 02/13/20 08:00 Pulse 63 02/13/20 08:00 Resp 18 02/13/20 08:00 BP 154/80 02/13/20 08:00 Pulse Ox 100 02/13/20 08:00 Intake & Output 02/12/20 02/13/20 02/13/20 18:59 06:59 18:59 Intake Total 960 240 Output Total 19 15 Balance 941 225 Weight 65.9 kg Intake: Oral 960 240 Output: Chest Tube Drainage 19 15 Chest Tube Left Lateral 19 15 Chest Other: Voiding Method Bedside Commode # Voids 1 1 # Bowel Movements 1 ABP, PAP, CO, CI - Last Documented Arterial Blood Pressure 170/95 - Exam GENERAL: Well-appearing, well-nourished and in no acute distress. HEAD: Atraumatic, normocephalic. EYES: Pupils equal round and reactive to light, extraocular movements intact, sclera anicteric, conjunctiva are normal. ENT:nares patent, oropharynx clear without exudates. Moist mucous membranes. NECK: Normal range of motion, supple without lymphadenopathy or JVD, no thyromegaly LUNGS: Breath sounds on the right clear to auscultation, left diminished throughout. No wheezes rales or rhonchi. HEART: Regular rate and rhythm without murmurs, rubs or gallops.S1S2 Normal ABDOMEN: Soft, nontender, normoactive bowel sounds. No guarding, no rebound. No masses appreciated. EXTREMITIES: Normal range of motion, no pitting or edema. No clubbing or cyanosis. NEUROLOGICAL: Cranial nerves II through XII grossly intact. Normal speech, normal gait. PSYCH: Normal mood, normal affect. SKIN: Warm, Dry, normal, surgical incision in the left thorax with a wound VAC attached. - Labs CBC & Chem 7: 02/13/20 06:34 02/13/20 06:34 Labs: Abnormal Lab Results - Last 24 Hours (Table) 02/12/20 02/12/20 02/12/20 Range/Units 11:19 16:36 19:53 WBC (3.8-10.6) k/uL RBC (3.80-5.40) m/uL Hgb (11.4-16.0) gm/dL Hct (34.0-46.0) % MCHC (31.0-37.0) g/dL RDW (11.5-15.5) % Plt Count (150-450) k/uL Neutrophils # (1.3-7.7) k/uL Lymphocytes # (1.0-4.8) k/uL Sodium (137-145) mmol/L Glucose (74-99) mg/dL POC Glucose (mg/dL) 134 H 208 H 106 H (75-99) mg/dL Calcium (8.4-10.2) mg/dL 02/13/20 02/13/20 02/13/20 Range/Units 06:15 06:34 06:34 WBC 11.3 H (3.8-10.6) k/uL RBC 3.28 L (3.80-5.40) m/uL Hgb 8.9 L (11.4-16.0) gm/dL Hct 28.8 L (34.0-46.0) % MCHC 30.8 L (31.0-37.0) g/dL RDW 16.0 H (11.5-15.5) % Plt Count 775 H (150-450) k/uL Neutrophils # 9.5 H (1.3-7.7) k/uL Lymphocytes # 0.9 L (1.0-4.8) k/uL Sodium 134 L (137-145) mmol/L Glucose 122 H (74-99) mg/dL POC Glucose (mg/dL) 144 H (75-99) mg/dL Calcium 8.1 L (8.4-10.2) mg/dL Assessment and Plan (1) Cough Current Visit: Yes Status: Acute Code(s): R05 - COUGH SNOMED Code(s): 497 89739 (2) Empyema of left pleural space Current Visit: Yes Status: Acute Code(s): J86.9 - PYOTHORAX WITHOUT FISTULA SNOMED Code(s): 06500797 (3) Hydropneumothorax Current Visit: Yes Status: Acute Priority: High Code(s): J94.8 - OTHER SPECIFIED PLEURAL CONDITIONS SNOMED Code(s): 58271574 (4) Hypokalemia Current Visit: Yes Status: Acute Priority: High Code(s): E87.6 - HYPOKALEMIA SNOMED Code(s): 99497932 (5) Hyponatremia Current Visit: Yes Status: Acute Priority: Medium Code(s): E87.1 - HYPO- OSMOLALITY AND HYPONATREMIA SNOMED Code(s): 27302510 (6) S/P pneumonectomy Current Visit: Yes Status: Acute Code(s): Z90.2 - ACQUIRED ABSENCE OF LUNG [PART OF] SNOMED Code(s): 832407892 (7) COPD (chronic obstructive pulmonary disease) Current Visit: Yes Status: Chronic Priority: Medium Code(s): J44.9 - CHRONIC OBSTRUCTIVE PULMONARY DISEASE, UNSPECIFIED SNOMED Code(s): 23215831 (8) Adenocarcinoma of lung Current Visit: No Status: Chronic Priority: Medium Code(s): C34.90 - MALIGNANT NEOPLASM OF UNSP PART OF UNSP BRONCHUS OR LUNG SNOMED Code(s): 346258848 Plan: 1. Keep left pleural chest tube in place and Water seal 2. Increase activity as tolerated 3. Continue with current diet. 4. Continue to use incentive spirometry 5. Continue DVT and GI prophylaxis 6. Continue to monitor labs and vital signs 7. Maintain oxygen saturation greater than 92% and wean nasal cannula as appropriate. 8. We'll follow closely and reassess tomorrow Time with Patient: Greater than 30
[2020-02-13] MEDS: FERROUS SULFATE 325 MG TAB PO SCH (11:24)
[2020-02-13 11:35] LABS: Glucose,Whole Blood 201 mg/dL (75-99)
[2020-02-13] MEDS: ALBUTEROL NEBULIZED 2.5 MG/3 ML INHALATION PRN ×3 (12:36→20:40)
--- NOTE | 2020-02-13 13:53 | P.PN ---
Subjective Progress Note Date: 02/13/20 Principal diagnosis: Empyema, recent history of left upper lobectomy and poorly differentiated squamous cell carcinoma. The patient is seen today 02/13/2020 in follow-up on the selective care unit. She is currently resting comfortably in bed. Awake and alert in no acute distre ss. She is breathing easier today compared to yesterday. She is maintaining O2 saturations up to 100% on 2 L/m per nasal cannula. She's afebrile. Hemodynamically stable. Chest x-ray report revealed improved aeration on the right lung. Left-sided chest tube remains in place there is air-fluid level in the left hemithorax as well as other air outlining the mediastinum. Unchanged compared to previous. 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 She remains on ceftriaxone and Flagyl. She is status post 4 units of packed red blood cells this admission. Current hemoglobin 8.9. White count 11.3. Platelets 775. Sodium 134. Potassium 3.5. Creatinine 0.78. She was given additional IV Lasix 40 mg today. Objective - Vital Signs Vital signs: Vital Signs Temp 97.9 F 02/13/20 12:00 Pulse 60 02/13/20 12:46 Resp 18 02/13/20 12:00 BP 110/63 02/13/20 12:00 Pulse Ox 100 02/13/20 12:00 Intake & Output 02/12/20 02/13/20 02/13/20 18:59 06:59 18:59 Intake Total 960 240 236 Output Total 19 15 Balance 941 225 236 Weight 65.9 kg Intake: Oral 960 240 236 Output: Chest Tube Drainage 19 15 Chest Tube Left Lateral 19 15 Chest Other: Voiding Method Bedside Commode # Voids 1 1 # Bowel Movements 1 ABP, PAP, CO, CI - Last Documented Arterial Blood Pressure 170/95 - Exam GENERAL EXAM: Alert, very pleasant, 55-year-old female patient, on 2 L nasal cannula, current oxygen saturation at 100%, comfortable in no apparent distress. HEAD: Normocephalic/atraumatic. EYES: Normal reaction of pupils, equal size. Conjunctiva pink, sclera white. NOSE: Clear with pink turbinates. THROAT: No erythema or exudates. NECK: No masses, no JVD, no thyroid enlargement, no adenopathy. CHEST: No chest wall deformity. Symmetrical expansion. Patient had 2 posterior left-sided chest tubes removed, the remaining left anterior chest tube remains in place with scant amount of serosanguineous output to waterseal. Wound VAC is in place to the left chest wall wound LUNGS: Equal air entry with no crackles, wheeze, rhonchi or dullness. CVS: Regular rate and rhythm, normal S1 and S2, no gallops, no murmurs, no rubs ABDOMEN: Soft, nontender. No hepatosplenomegaly, normal bowel sounds, no guarding or rigidity. EXTREMITIES: No clubbing, no edema, no cyanosis, 2+ pulses and upper and lower extremities. MUSCULOSKELETAL: Muscle strength and tone normal. SPINE: No scoliosis or deformity SKIN: Wound on the left posterior chest wall healing well. CENTRAL NERVOUS SYSTEM: No focal deficits, tone is normal in all 4 extremities. PSYCHIATRIC: Alert and oriented -3. Appropriate affect. Intact judgment and insight. - Labs CBC & Chem 7: 02/13/20 06:34 02/13/20 06:34 Labs: Abnormal Lab Results - Last 24 Hours (Table) 02/12/20 02/12/20 02/13/20 Range/Units 16:36 19:53 06:15 WBC (3.8-10.6) k/uL RBC (3.80-5.40) m/uL Hgb (11.4-16.0) gm/dL Hct (34.0-46.0) % MCHC (31.0-37.0) g/dL RDW (11.5-15.5) % Plt Count (150-450) k/uL Neutrophils # (1.3-7.7) k/uL Lymphocytes # (1.0-4.8) k/uL Sodium (137-145) mmol/L Glucose (74-99) mg/dL POC Glucose (mg/dL) 208 H 106 H 144 H (75-99) mg/dL Calcium (8.4-10.2) mg/dL 02/13/20 02/13/20 02/13/20 Range/Units 06:34 06:34 11:35 WBC 11.3 H (3.8-10.6) k/uL RBC 3.28 L (3.80-5.40) m/uL Hgb 8.9 L (11.4-16.0) gm/dL Hct 28.8 L (34.0-46.0) % MCHC 30.8 L (31.0-37.0) g/dL RDW 16.0 H (11.5-15.5) % Plt Count 775 H (150-450) k/uL Neutrophils # 9.5 H (1.3-7.7) k/uL Lymphocytes # 0.9 L (1.0-4.8) k/uL Sodium 134 L (137-145) mmol/L Glucose 122 H (74-99) mg/dL POC Glucose (mg/dL) 201 H (75-99) mg/dL Calcium 8.1 L (8.4-10.2) mg/dL Assessment and Plan Assessment: 1 Left lung empyema and the patient is post left upper lobectomy on 12/31/2019 , with cultures indicating actinomyces odontolyticus infection. The patient was taken to the operating room and the patient underwent a left thoracotomy, total left decortication, pectoralis major pedicle flap transposition into the left pleural space in addition to cryoablation of the intercostal nerves. She is postop day #5. The patient remains on a combination of Rocephin and Flagyl per IDs recommendation. There is also a wound over the left anterior chest aspect which has been packed with iodoform it was dressed. The wound is also covered. Chest x-ray from 02/13/2020 reveals one left pleural drain in place. There is an air-fluid level in the left hemithorax as well as other air outlining the mediastinum. Unchanged compared to previous. Interstitial prominence of the right hilum has resolved. Improved aeration of the right lung. 2 Acute anemia possibly related to blood clot/pooling/hematoma the left chest 3 Recent left upper lobectomy on 12/31/2019 found to be poorly differentiated squamous cell carcinoma 4 Previous chronic tobacco dependence 5 Hypertension 6 Hyperlipidemia 7 Diabetes mellitus, type II 8 History of cervical cancer status post hysterectomy 9 History of anxiety/bipolar disorder Plan: The patient was seen and evaluated by Dr. Arredondo Chest x-ray and labs reviewed. Last chest tube removed per CT services. Remains on Rocephin and Flagyl per ID services Continues to work well with the incentive spirometer Continue to keep the wound clean and dry Plan is for PICC line placement Increase her activity as tolerated We will continue to follow and make further recommendations based on her clinical status I, the cosigning physician, performed a history & physical examination of the patient. Lungs sounds diminished with crackles to scattered rhonchi in the left. Maintaining good O2 saturations in the 90s on 2 L/m per nasal cannula. I discus sed the assessment and plan of care with my nurse practitioner, Jazmín Arndt. I attest to the above note as dictated by her.
[2020-02-13] MEDS: FLUCONAZOLE 100 MG TAB PO SCH (15:06)
[2020-02-13 16:25] LABS: Glucose,Whole Blood 87 mg/dL (75-99)
[2020-02-13 19:58] LABS: Glucose,Whole Blood 161 mg/dL (75-99)
[2020-02-13] MEDS: SENNOSIDES-DOCUSATE SODIUM 1 EACH TAB PO SCH (20:29)
--- NOTE | 2020-02-13 22:01 | PN ---
PROGRESS NOTE DATE OF SERVICE: 02/13/2020 REASON FOR FOLLOWUP: Left-sided empyema and pneumonia. INTERVAL HISTORY: The patient is currently afebrile. Patient is breathing more comfortably. The patient denies having any chest pain. She did have a cough, though decreased intensity. Remains to be dry in nature. No nausea, no vomiting. No abdominal pain. No diarrhea. PHYSICAL EXAMINATION: Blood pressure 117/65 with a pulse of 65, temperature 96.9. She is 100% on 2 L nasal cannula. General description is a middle-aged female lying in bed in no distress. Respiratory system: Unlabored breathing, decreased breath sounds in the left side. No wheeze. HEART: S1, S2. Regular rate and rhythm. Abdomen soft, no tenderness. LABS: Hemoglobin 8.8, white count 11.3 with a BUN of 8, creatinine 0.78. DIAGNOSTIC IMPRESSION AND PLAN: 1. Patient with left-sided empyema, status post thoracotomy. Culture with Actinomyces. The patient on Rocephin and Flagyl because of PENICILLIN ALLERGY. 2. Elevated white count possible oropharyngeal candidiasis responded to Diflucan that will be continued and we will monitor clinical course closely. MMODL / IJN: [id number] /
[2020-02-14] MEDS: HEPARIN SODIUM,PORCINE 5,000 UNIT/ML 1 ML VIAL SQ SCH ×4 (00:17→22:35)
[2020-02-14 06:08] LABS: Glucose,Whole Blood 132 mg/dL (75-99)
[2020-02-14 06:10] LABS: Anisocytosis Slight; HCT 29.3 % (34.0-46.0); HGB 8.8 gm/dL (11.4-16.0); Hypochromasia Marked; MCH 26.5 pg (25.0-35.0); MCHC 29.9 g/dL (31.0-37.0); MCV 88.5 fL (80.0-100.0); Mean Platelet Volume 7.1; Platelet Count 757 k/uL (150-450); RBC 3.32 m/uL (3.80-5.40); RDW 16.7 % (11.5-15.5); WBC 12.6 k/uL (3.8-10.6)
[2020-02-14] MEDS: metFORMIN 500 MG TAB PO SCH ×2 (06:15→17:22)
[2020-02-14] MEDS: PANTOPRAZOLE 40 MG TABLET PO SCH (06:15)
[2020-02-14] MEDS: INSULIN ASPART (NovoLOG) 100 UNIT/ML VIAL SQ SCH ×4 (06:15→20:49)
[2020-02-14 06:18] LABS: African American GFR (CKD) >90 (>60 ml/min/1.73 sqM); Anion Gap 8 mmol/L; Blood Urea Nitrogen 8 mg/dL (7-17); Carbon Dioxide 26 mmol/L (22-30); Chloride 101 mmol/L (98-107); Glucose 128 mg/dL (74-99); Magnesium 1.8 mg/dL (1.6-2.3); Non-African American GFR(CKD) >90 (>60 ml/min/1.73 sqM); Potassium 3.4 mmol/L (3.5-5.1); Sodium 135 mmol/L (137-145)
[2020-02-14] MEDS ORDERED: FUROSEMIDE 10 MG/ML 4 ML VIAL IV STA (07:45)
[2020-02-14] MEDS: DULoxetine HCL 60 MG CAPSULE.DR PO SCH (07:58)
[2020-02-14] MEDS: ASCORBIC ACID 500 MG TAB PO SCH (07:58)
[2020-02-14] MEDS: POTASSIUM CHLORIDE ER 20 MEQ TAB.ER PO SCH ×2 (07:58→10:28)
[2020-02-14] MEDS: FLUCONAZOLE 100 MG TAB PO SCH (07:58)
[2020-02-14] MEDS: metroNIDAZOLE 500 MG TAB PO SCH ×3 (07:58→22:35)
[2020-02-14] MEDS: MAGNESIUM OXIDE 400 MG TAB PO SCH ×2 (07:58→21:00)
[2020-02-14] MEDS: amLODIPine 10 MG TAB PO SCH (07:59)
[2020-02-14] MEDS: traMADol 50 MG TAB PO SCH ×3 (07:59→21:00)
[2020-02-14] MEDS: hydrALAZINE HCL 50 MG TAB PO SCH ×4 (08:00→20:59)
[2020-02-14] MEDS: VALSARTAN 160 MG TAB PO SCH (08:01)
[2020-02-14] MEDS: BISOPROLOL 5 MG TAB PO SCH (08:01)
[2020-02-14] MEDS: ALBUTEROL NEBULIZED 2.5 MG/3 ML INHALATION PRN ×4 (08:19→21:46)
--- NOTE | 2020-02-14 08:27 | XR ---
EXAMINATION TYPE: XR chest 1V portable DATE OF EXAM: 02/14/2020 HISTORY: Status post left thoracotomy.. REFERENCE: Previous study dated 02/13/2020. FINDINGS: Left pleural drain remains in place. Loculated pneumothorax in the left apex persists uncha nged. There is also air outlining the mediastinum. This is unchanged from previous. There is worsening, patchy, right-sided airspace disease. Heart size is obscured. IMPRESSION: 1. THIS STABLE APPEARANCE TO THE POST SURGICAL HEMITHORAX. 2. WORSENING, PATCHY RIGHT-SIDED PNEUMONIA.
--- NOTE | 2020-02-14 08:42 | P.PN ---
Subjective Progress Note Date: 02/14/20 Principal diagnosis: This is a 55-year-old female patient who follows with Dr. Leroy on an outpatient basis. She has a past medical history of poorly differentiated squamous cell carcinoma, status post left upper lobectomy on 12/31/2019, hypertension, hyperlipidemia, chronic tobacco abuse, type 2 diabetes mellitus, cervical cancer status post hysterectomy, anxiety and bipolar disorder. On 01/28/2020 she had a follow-up visit with Dr. Teddy Wilkins for her pathology results of her recent left upper lobectomy. Upon exam of her surgical incisions there was a fluctuant area which was painful to touch on her left chest. Subsequently she was started on oral Keflex. Yesterday morning she developed some drainage from that incision site with the fluctuant area, leaking foul smelling yellowish fluid. Her initial lab results showed a WBC count 12.0, Hgb 8.3, neutrophils 59%, positive band neutrophil percent 24 and neutrophil numbers 9.0. A chest x-ray was completed which demonstrated a normal and the left hydropneumothorax, with no significant interval changes. She was admitted to observation to determine further treatment plans and surgical incision with consultation placed to Dr. Teddy Wilkins. POD #11 left thoracotomey. total lung decortication, pectoralis major pedicle flap transposition into the left pleural space, cryoablation of the intercostal nerves. Postoperative acute blood loss anemia, an expected outcome of surgery. Postoperative hypotension, an expected outcome due to hypovolemia. On 02/14/2020 the patient was seen at her bedside on the selective care unit in follow-up. She is resting comfortably in bed, alert, oriented 3 and is in no acute distress. Denies any complaints of pain at this time, although is complaining of episodes of shortness of breath with activity. She also reports that she does have a loose cough with thin white sputum production. Oxygen saturation are 98% on 2 L nasal cannula and she is achieving 750-1000 mL on her incentive spirometry. The last left pleural chest tube was removed yesterday without incident. A chest x-ray was completed this morning which demonstrates patchy right-sided infiltrate and an air-fluid level in the left hemithorax as well as outlining the mediastinum. Laboratory results today show a WBC count 12.6, hemoglobin 8.8, platelets 757, potassium 3.4, BUN 8 and creatinine 0.74. She is hemodynamically stable and has been afebrile the last 24 hours. She remains on Rocephin, and Flagyl for antibiotic coverage managed by infectious disease. She is also awaiting a PICC line placement for outpatient IV antibiotic treatments. Wound VAC dressing remains clean, dry and in place with good seal to her left chest superficial wound. Remote telemetry showing normal sinus rhythm heart rate 67. Objective - Vital Signs Vital signs: Vital Signs Temp 98.1 F 02/14/20 08:00 Pulse 64 02/14/20 08:19 Resp 18 02/14/20 08:00 BP 139/66 02/14/20 08:00 Pulse Ox 98 02/14/20 08:00 Intake & Output 02/13/20 02/14/20 02/14/20 18:59 06:59 18:59 Intake Total 576 440 200 Balance 576 440 200 Weight 64 kg Intake: Oral 576 440 200 Other: Voiding Method Bedside Commode # Voids 1 2 ABP, PAP, CO, CI - Last Documented Arterial Blood Pressure 170/95 - Exam This is a 55-year-old pleasant female patient who is sitting up to the bedside chair in the cardiac stepdown unit. She is in no acute distress. Oxygen saturations are 98% % on 2 L nasal cannula. She is hemodynamically stable and afebrile. - Constitutional General appearance: Present: average body habitus, cooperative, no acute distress - EENT Eyes: Present: PERRLA, normal appearance ENT: Present: hearing grossly normal - Neck Details: Neck is supple, no JVD. - Respiratory Details: Lung sounds essentially clear to her right lobes, and diminished to her left upper lobe. Respirations are symmetrical and nonlabored. Oxygen saturation is 98% on 2 L nasal cannula. Achieving 750 mL to 1000 mL on her incentive spirometry. - Cardiovascular Details: Regular rhythm and rate. S1 and S2 present, negative for S3, gallop or murmur. Knee-high JOHAN hose and sponge compression devices in place for bilateral lower extremities. Remote telemetry showing normal sinus rhythm heart rate 67. - Gastrointestinal Gastrointestinal Comment(s): Abdomen soft, nontender and nondistended. Active bowel sounds present in all 4 abdominal quadrants. No guarding or rigidity. General gastrointestinal: Absent: organomegaly - Integumentary Integumentary Comment(s): Skin is warm and dry. Clubbing is present to her bilateral hands. No cyanosis. Left chest superficial wound with wound VAC in place, dressing is clean, dry and intact with good seal. - Neurologic Neurologic: Present: CNII-XII intact - Musculoskeletal Musculoskeletal: Present: gait normal, generalized weakness, strength equal bilaterally - Psychiatric Psychiatric: Present: A&O x's 3, appropriate affect, intact judgment & insight - Allied health notes Allied health notes reviewed: nursing - Labs CBC & Chem 7: 02/14/20 05:51 02/14/20 05:51 Labs: Abnormal Lab Results - Last 24 Hours (Table) 02/13/20 02/13/20 02/13/20 Range/Units 06:34 11:35 19:44 WBC 11.3 H (3.8-10.6) k/uL RBC 3.28 L (3.80-5.40) m/uL Hgb 8.9 L (11.4-16.0) gm/dL Hct 28.8 L (34.0-46.0) % MCHC 30.8 L (31.0-37.0) g/dL RDW 16.0 H (11.5-15.5) % Plt Count 775 H (150-450) k/uL Neutrophils # 9.5 H (1.3-7.7) k/uL Lymphocytes # 0.9 L (1.0-4.8) k/uL Sodium (137-145) mmol/L Potassium (3.5-5.1) mmol/L Glucose (74-99) mg/dL POC Glucose (mg/dL) 201 H 161 H (75-99) mg/dL Calcium (8.4-10.2) mg/dL 02/14/20 02/14/20 02/14/20 Range/Units 05:51 05:51 06:04 WBC 12.6 H (3.8-10.6) k/uL RBC 3.32 L (3.80-5.40) m/uL Hgb 8.8 L (11.4-16.0) gm/dL Hct 29.3 L (34.0-46.0) % MCHC 29.9 L (31.0-37.0) g/dL RDW 16.7 H (11.5-15.5) % Plt Count 757 H (150-450) k/uL Neutrophils # (1.3-7.7) k/uL Lymphocytes # (1.0-4.8) k/uL Sodium 135 L (137-145) mmol/L Potassium 3.4 L (3.5-5.1) mmol/L Glucose 128 H (74-99) mg/dL POC Glucose (mg/dL) 132 H (75-99) mg/dL Calcium 8.0 L (8.4-10.2) mg/dL - Imaging and Cardiology Chest x-ray: report reviewed, image reviewed Assessment and Plan Assessment: 1. Empyema left chest status post left upper lobectomy, status post left thoracotomy, total lung decortication, pectoralis major pedicle flap tra nsposition into the left pleural space, cryoablation of intercostal nerves. 2. Superficial wound, with culture from 01/29/2020 positive for Actinomyces odontolyticus. Currently on Rocephin and Flagyl managed by infectious disease. Wound VAC dressings Saturday and Saturday. 3. History of poorly differentiated squamous cell carcinoma, status post left upper lobectomy on 12/31/2019 4. History of hypertension 5. History of hyperlipidemia 6. Previous tobacco dependence 7. Type 2 diabetes mellitus 8. History of cervical cancer status post hysterectomy 9. History of anxiety/bipolar disorder 10. Postoperative acute blood loss anemia, an expected outcome 11. Postoperative hypotension, an expected outcome, resolved Plan: 1. Lasix 40 mg IV 1 now. 2. Continue to encourage use of her incentive spirometry 10 times an hour while awake. 3. Continue to encourage smoking cessation. 4. Continue to hold Eliquis. No further episodes of atrial fibrillation. Continue subcu heparin /knee-high JOHAN hose and sequential compression devices for DVT prophylaxis. 5. Dressing changed to her left chest on 02/12/2020 using black granufoam sponge and connected to the wound VAC. Continue to change wound VAC Saturday. Wound measurements taken on 02/12/2020 and measuring 4 cm x 1 cm x 1.5 cm. 6. Culture obtained in the operating room 02/03/2020 shows Actinomyces odontolyticus. Initial culture from her left chest wound from 01/29/2020 also showed Actinomyces odontolyticus continue Rocephin, and by mouth Flagyl managed by infectious disease. She was also started on Diflucan by infectious disease. 7. Continue GI and DVT prophylaxis. 8. Out of bed for all meals. Increase activity as tolerated with walking in the room. Physical therapy following. 9. Interventional radiology has been consulted for PICC line placement. 10. Continue to monitor daily labs and chest x-rays. Replace electrolytes per protocol. 11. Continue to wean oxygen as tolerated, to keep sats greater than or equal to 92%. Bronchodilator management per pulmonary medicine service. 12. The patient's Gustavo was updated on her care today will present at he r bedside, per phone. 13. More recommendations to follow based on patient's clinical course. Time with Patient: Less than 30
--- NOTE | 2020-02-14 10:08 | P.PN ---
Subjective Progress Note Date: 02/14/20 Principal diagnosis: 55-year-old white female with a [id number] smoking history, quit in October 2019. 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 Patient presented emergency room with complaints of foul-smelling fluid that had leaked out of her chest. 02/13/2020 Patient sitting up in bed resting comfortably, alert and oriented 3, follow commands. She appears to be hematoma is stable no complaints at this time. She is afebrile with temperature 98.1 oral, pulse rate of 63 sinus rhythm, respiratory rate of 18, a pressure of 154/80, and pulse ox 100% on 2 L nasal cannula. States using her incentive spirometry 10 times every hour and is able to get it to 1 L at this time. She does state she does get short of breath with activity at times. Today's labs white blood cell count 1.3,hemoglobin of 8.9, with hematocrit of 28.8 and with a platelet count of 775. Today's chemistry sodium 134,potassium of 3.5, bilirubin of 8 and creatinine of 0.78 with a glucose of 122. Discussed the need with her to increase activity and utilization of the incentive spirometer. 02/14/2020 Patient sitting up in bed resting comfortably, denies pain, alert and oriented 3, following commands, and appears to be in no distress at this time. Chest tube removed yesterday at bedside. Currently vital signs are stable with blood pressure 139/66 respiratory rate of 18 pulse rate is 63 sinus rhythm she is 98.1F oral currently on 2 L nasal cannula with oxygen saturation of 98%. She does admit to some shortness of breath with activity. She is still using incentive spirometry approximately 10 times an hour reaching 750 mL8.0to 1 L with eac breath. Labs for 02/13/2021 white blood cell count 12.6, hemoglobin of 8.8, hematocrit 20.3,platelet count 757. Chem panel shows a sodium of 135, potassium 3.4, chloride of 101, YVETTE of 8, creatinine of 0.74, GFR greater than 90, calcium and magnesium 1.8. Today's chest x-ray reveals patchy right-sided infiltrates and air-fluid level in the left hemothorax. Objective - Vital Signs Vital signs: Vital Signs Temp 98.1 F 02/14/20 08:00 Pulse 64 02/14/20 08:29 Resp 18 02/14/20 08:00 BP 139/66 02/14/20 08:00 Pulse Ox 98 02/14/20 08:00 Intake & Output 02/13/20 02/14/20 02/14/20 18:59 06:59 18:59 Intake Total 576 440 200 Balance 576 440 200 Weight 64 kg Intake: Oral 576 440 200 Other: Voiding Method Bedside Commode # Voids 1 2 ABP, PAP, CO, CI - Last Documented Arterial Blood Pressure 170/95 - Exam GENERAL: Well-appearing, well-nourished and in no acute distress. HEAD: Atraumatic, normocephalic. EYES: Pupils equal round and reactive to light, extraocular movements intact, sclera anicteric, conjunctiva are normal. ENT:nares patent, oropharynx clear without exudates. Moist mucous membranes. NECK: Normal range of motion, supple without lymphadenopathy or JVD, no thyromegaly LUNGS: Breath sounds on the right clear to auscultation, left diminished throughout. No wheezes rales or rhonchi. HEART: Regular rate and rhythm without murmurs, rubs or gallops.S1S2 Normal ABDOMEN: Soft, nontender, normoactive bowel sounds. No guarding, no rebound. No masses appreciated. EXTREMITIES: Normal range of motion, no pitting or edema. No clubbing or cyanosis. NEUROLOGICAL: Cranial nerves II through XII grossly intact. Normal speech, normal gait. PSYCH: Normal mood, normal affect. SKIN: Warm, Dry, normal, surgical incision in the left thorax with a wound VAC attached. - Labs CBC & Chem 7: 02/14/20 05:51 02/14/20 05:51 Labs: Abnormal Lab Results - Last 24 Hours (Table) 02/13/20 02/13/20 02/14/20 Range/Units 11:35 19:44 05:51 WBC (3.8-10.6) k/uL RBC (3.80-5.40) m/uL Hgb (11.4-16.0) gm/dL Hct (34.0-46.0) % MCHC (31.0-37.0) g/dL RDW (11.5-15.5) % Plt Count (150-450) k/uL Sodium 135 L (137-145) mmol/L Potassium 3.4 L (3.5-5.1) mmol/L Glucose 128 H (74-99) mg/dL POC Glucose (mg/dL) 201 H 161 H (75-99) mg/dL Calcium 8.0 L (8.4-10.2) mg/dL 02/14/20 02/14/20 Range/Units 05:51 06:04 WBC 12.6 H (3.8-10.6) k/uL RBC 3.32 L (3.80-5.40) m/uL Hgb 8.8 L (11.4-16.0) gm/dL Hct 29.3 L (34.0-46.0) % MCHC 29.9 L (31.0-37.0) g/dL RDW 16.7 H (11.5-15.5) % Plt Count 757 H (150-450) k/uL Sodium (137-145) mmol/L Potassium (3.5-5.1) mmol/L Glucose (74-99) mg/dL POC Glucose (mg/dL) 132 H (75-99) mg/dL Calcium (8.4-10.2) mg/dL Assessment and Plan (1) Cough Current Visit: Yes Status: Acute Code(s): R05 - COUGH SNOMED Code(s): 34148030 (2) Empyema of left pleural space Current Visit: Yes Status: Acute Code(s): J86.9 - PYOTHORAX WITHOUT FISTULA SNOMED Code(s): 52714298 (3) Hydropneumothorax Current Visit: Yes Status: Acute Priority: High Code(s): J94.8 - OTHER SPECIFIED PLEURAL CONDITIONS SNOMED Code(s): 38856734 (4) Hypokalemia Current Visit: Yes Status: Acute Priority: High Code(s): E87.6 - HYPOKALEMIA SNOMED Code(s): 00789365 (5) Hyponatremia Current Visit: Yes Status: Acute Priority: Medium Code(s): E87.1 - HYPO- OSMOLALITY AND HYPONATREMIA SNOMED Code(s): 17239663 (6) S/P pneumonectomy Current Visit: Yes Status: Acute Code(s): Z90.2 - ACQUIRED ABSENCE OF LUNG [PART OF] SNOMED Code(s): 563293105 (7) COPD (chronic obstructive pulmonary disease) Current Visit: Yes Status: Chronic Priority: Medium Code(s): J44.9 - CH RONIC OBSTRUCTIVE PULMONARY DISEASE, UNSPECIFIED SNOMED Code(s): 07797217 (8) Adenocarcinoma of lung Current Visit: No Status: Chronic Priority: Medium Code(s): C34.90 - MALIGNANT NEOPLASM OF UNSP PART OF UNSP BRONCHUS OR LUNG SNOMED Code(s): 041947401 Plan: 1. PICC line placement 2. Increase activity as tolerated 3. Continue with current diet. 4. Continue to use incentive spirometry 5. Continue DVT and GI prophylaxis 6. Continue to monitor labs and vital signs 7. Maintain oxygen saturation greater than 92% and wean nasal cannula as appropriate. 8. We'll follow closely and reassess tomorrow Time with Patient: Greater than 30
[2020-02-14] MEDS: FERROUS SULFATE 325 MG TAB PO SCH (11:46)
[2020-02-14 11:57] LABS: Glucose,Whole Blood 118 mg/dL (75-99)
--- NOTE | 2020-02-14 11:58 | P.PN ---
Subjective Progress Note Date: 02/14/20 Principal diagnosis: Empyema, recent history of left upper lobectomy and poorly differentiated squamous cell carcinoma. The patient is seen today 02/13/2020 in follow-up on the selective care unit. She is currently resting comfortably in bed. Awake and alert in no acute distre ss. She is breathing easier today compared to yesterday. She is maintaining O2 saturations up to 100% on 2 L/m per nasal cannula. She's afebrile. Hemodynamically stable. Chest x-ray report revealed improved aeration on the right lung. Left-sided chest tube remains in place there is air-fluid level in the left hemithorax as well as other air outlining the mediastinum. Unchanged compared to previous. 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 She remains on ceftriaxone and Flagyl. She is status post 4 units of packed red blood cells this admission. Current hemoglobin 8.9. White count 11.3. Platelets 775. Sodium 134. Potassium 3.5. Creatinine 0.78. She was given additional IV Lasix 40 mg today. The patient is seen today 02/14/2020 in follow-up on the selective care unit. She is currently resting comfortably in bed. Awake and alert in no acute distress. She continues to improve daily. She is down to 2 L nasal cannula and maintaining O2 saturations in the upper 90s. She's been afebrile. Hemodynamically stable. Wound culture positive for actinomyces odontolyticus. Wound VAC in place. Last chest tube removed today. Chest x-ray reveals stable appearance compared to yesterday. Received additional IV Lasix today. Continued on White count 12.6. Hemoglobin 8.8. Sodium 135. Potassium 3.4. Creatinine 0.74. Continued on ceftriaxone and metronidazole. Plan is for PICC line placement tomorrow. Objective - Vital Signs Vital signs: Vital Signs Temp 98.1 F 02/14/20 11:47 Pulse 64 02/14/20 11:49 Resp 20 02/14/20 11:47 BP 145/78 02/14/20 11:47 Pulse Ox 98 02/14/20 11:47 Intake & Output 02/13/20 02/14/20 02/14/20 18:59 06:59 18:59 Intake Total 576 440 200 Balance 576 440 200 Weight 64 kg Intake: Oral 576 440 200 Other: Voiding Method Bedside Commode Bedside Commode # Voids 1 2 ABP, PAP, CO, CI - Last Documented Arterial Blood Pressure 170/95 - Exam GENERAL EXAM: Alert, very pleasant, 55-year-old female patient, on 2 L nasal cannula, current oxygen saturation at 98%, comfortable in no apparent distress. HEAD: Normocephalic/atraumatic. EYES: Normal reaction of pupils, equal size. Conjunctiva pink, sclera white. NOSE: Clear with pink turbinates. THROAT: No erythema or exudates. NECK: No masses, no JVD, no thyroid enlargement, no adenopathy. CHEST: No chest wall deformity. Symmetrical expansion. Chest tubes have been removed. Wound VAC is in place to the left chest wall wound LUNGS: Equal air entry with no crackles, wheeze, rhonchi or dullness. CVS: Regular rate and rhythm, normal S1 and S2, no gallops, no murmurs, no rubs ABDOMEN: Soft, nontender. No hepatosplenomegaly, normal bowel sounds, no guarding or rigidity. EXTREMITIES: No clubbing, no edema, no cyanosis, 2+ pulses and upper and lower extremities. MUSCULOSKELETAL: Muscle strength and tone normal. SPINE: No scoliosis or deformity SKIN: Wound on the left posterior chest wall healing well. CENTRAL NERVOUS SYSTEM: No focal deficits, tone is normal in all 4 extremities. PSYCHIATRIC: Alert and oriented -3. Appropriate affect. Intact judgment and insight. - Labs CBC & Chem 7: 02/14/20 05:51 02/14/20 05:51 Labs: Abnormal Lab Results - Last 24 Hours (Table) 02/13/20 02/14/20 02/14/20 Range/Units 19:44 05:51 05:51 WBC 12.6 H (3.8-10.6) k/uL RBC 3.32 L (3.80-5.40) m/uL Hgb 8.8 L (11.4-16.0) gm/dL Hct 29.3 L (34.0-46.0) % MCHC 29.9 L (31.0-37.0) g/dL RDW 16.7 H (11.5-15.5) % Plt Count 757 H (150-450) k/uL Sodium 135 L (137-145) mmol/L Potassium 3.4 L (3.5-5.1) mmol/L Glucose 128 H (74-99) mg/dL POC Glucose (mg/dL) 161 H (75-99) mg/dL Calcium 8.0 L (8.4-10.2) mg/dL 02/14/20 Range/Units 06:04 WBC (3.8-10.6) k/uL RBC (3.80-5.40) m/uL Hgb (11.4-16.0) gm/dL Hct (34.0-46.0) % MCHC (31.0-37.0) g/dL RDW (11.5-15.5) % Plt Count (150-450) k/uL Sodium (137-145) mmol/L Potassium (3.5-5.1) mmol/L Glucose (74-99) mg/dL POC Glucose (mg/dL) 132 H (75-99) mg/dL Calcium (8.4-10.2) mg/dL Assessment and Plan Assessment: 1 Left lung empyema and the patient is post left upper lobectomy on 12/31/2019 , with cultures indicating actinomyces odontolyticus infection. The patient was taken to the operating room and the patient underwent a left thoracotomy, total left decortication, pectoralis major pedicle flap transposition into the left pleural space in addition to cryoablation of the intercostal nerves. She is postop day #6. The patient remains on a combination of Rocephin and Flagyl per IDs recommendation. There is also a wound over the left anterior chest aspect which has been packed with iodoform it was dressed. Wound VAC in place. Chest x-ray from 02/14/2020 reveals an air-fluid level in the left hemithorax as well as other air outlining the mediastinum. Unchanged compared to previous. Interstitial prominence of the right hilum has resolved. Improved aeration of the right lung. 2 Acute anemia possibly related to blood clot/pooling/hematoma the left chest 3 Recent left upper lobectomy on 12/31/2019 found to be poorly differentiated squamous cell carcinoma 4 Previous chronic tobacco dependence 5 Hypertension 6 Hyperlipidemia 7 Diabetes mellitus, type II 8 History of cervical cancer status post hysterectomy 9 History of anxiety/bipolar disorder Plan: The patient was seen and evaluated by Dr. Arredondo Chest x-ray and labs reviewed. Remains on Rocephin and Flagyl per ID services Continues to work well with the incentive spirometer Plan is for PICC line placement tomorrow Increase her activity as tolerated We will continue to follow and make further recommendations based on her c linical status I, the cosigning physician, performed a history & physical examination of the patient. Lungs sounds diminished with crackles to scattered rhonchi in the left. Maintaining good O2 saturations in the 90s on 2 L/m per nasal cannula. I discussed the assessment and plan of care with my nurse practitioner, Jazmín Arndt. I attest to the above note as dictated by her.
[2020-02-14] MEDS ORDERED: LEVOFLOXACIN 750MG-D5W PMX 750 MG in DEXTROSE/WATER 1 150ML.BAG IVPB STA (16:37)
[2020-02-14 16:49] LABS: Glucose,Whole Blood 112 mg/dL (75-99)
[2020-02-14 20:43] LABS: Glucose,Whole Blood 138 mg/dL (75-99)
[2020-02-14] MEDS: SENNOSIDES-DOCUSATE SODIUM 1 EACH TAB PO SCH (20:49)
--- NOTE | 2020-02-14 23:22 | PN ---
PROGRESS NOTE DATE OF SERVICE: 02/14/2020 REASON FOR FOLLOWUP: Left-sided empyema. INTERVAL HISTORY: The patient is currently afebrile. Patient is breathing comfortably. The patient did have some cough, no worsening and no sputum. No chest pain. No nausea, no vomiting. No abdominal pain or diarrhea. PHYSICAL EXAMINATION: Blood pressure 141/74 with a pulse of 65, temperature of 97.8. She is 99% on 2 L nasal cannula. General description is a middle-aged female up in the bed in no distress. RESPIRATORY SYSTEM: Unlabored breathing, decreased breath sounds at the bases. No wheeze. HEART: S1, S2. Regular rate and rhythm. LABS: Hemoglobin 8.8, white count 12.6, BUN of 8, creatinine 0.74. DIAGNOSTIC IMPRESSION AND PLAN: Patient with left-sided empyema, status post thoracotomy. Chest tube has been subsequently discontinued. Chest x-ray showing slight worsening pneumonia on the right side. The patient did have dry cough. We will add Levaquin to her current antibiotic regime and monitor clinical course closely. MMODL / IJN: [id number] /
[2020-02-15] MEDS: ACETAMINOPHEN TAB 500 MG TAB PO PRN ×2 (03:07→14:48)
[2020-02-15 06:07] LABS: Glucose,Whole Blood 129 mg/dL (75-99)
[2020-02-15 06:26] LABS: Anisocytosis Slight; HCT 28.8 % (34.0-46.0); HGB 8.8 gm/dL (11.4-16.0); Hypochromasia Marked; MCH 26.6 pg (25.0-35.0); MCHC 30.5 g/dL (31.0-37.0); MCV 87.3 fL (80.0-100.0); Mean Platelet Volume 7.4; Platelet Count 710 k/uL (150-450); RDW 16.9 % (11.5-15.5); WBC 13.8 k/uL (3.8-10.6)
[2020-02-15] MEDS: INSULIN ASPART (NovoLOG) 100 UNIT/ML VIAL SQ SCH ×2 (06:27→12:30)
[2020-02-15] MEDS: PANTOPRAZOLE 40 MG TABLET PO SCH (06:31)
[2020-02-15] MEDS: metFORMIN 500 MG TAB PO SCH (06:31)
[2020-02-15 06:37] LABS: African American GFR (CKD) >90 (>60 ml/min/1.73 sqM); Anion Gap 8 mmol/L; Blood Urea Nitrogen 8 mg/dL (7-17); Carbon Dioxide 28 mmol/L (22-30); Chloride 99 mmol/L (98-107); Glucose 127 mg/dL (74-99); Magnesium 1.5 mg/dL (1.6-2.3); Non-African American GFR(CKD) 90 (>60 ml/min/1.73 sqM); Potassium 3.6 mmol/L (3.5-5.1); Sodium 135 mmol/L (137-145)
[2020-02-15] MEDS ORDERED: FUROSEMIDE 10 MG/ML 4 ML VIAL IV STA (07:16)
[2020-02-15] MEDS ORDERED: POTASSIUM CHLORIDE ER 20 MEQ TAB.ER PO SCH (08:00)
--- NOTE | 2020-02-15 09:04 | XR ---
EXAMINATION TYPE: XR chest 1V portable DATE OF EXAM: 02/15/2020 COMPARISON: 02/14/2020 HISTORY: Postop left-sided thoracotomy. TECHNIQUE: Single frontal view of the chest is obtained. FINDINGS: The exam appears similar to 02/14/2020 with a loculated. Surgical clips are seen of the left lung apex. Very mild patchy opacities are seen of the right upper lung peripherally. There is obscur ation of the left cardiac border. No acute osseous pathology. IMPRESSION: 1. Patchy multifocal right-sided upper lung airspace disease peripherally. This may be on the basis o f multifocal pneumonia or atelectasis. 2. Stable surgical change of the left hemithorax.
[2020-02-15] MEDS: BISOPROLOL 5 MG TAB PO SCH (10:06)
[2020-02-15] MEDS: ASCORBIC ACID 500 MG TAB PO SCH (10:07)
[2020-02-15] MEDS: traMADol 50 MG TAB PO SCH (10:07)
[2020-02-15] MEDS: MAGNESIUM OXIDE 400 MG TAB PO SCH (10:07)
[2020-02-15] MEDS: hydrALAZINE HCL 50 MG TAB PO SCH ×2 (10:07→14:32)
[2020-02-15] MEDS: DULoxetine HCL 60 MG CAPSULE.DR PO SCH (10:07)
[2020-02-15] MEDS: metroNIDAZOLE 500 MG TAB PO SCH (10:10)
--- NOTE | 2020-02-15 10:11 | P.PN ---
Subjective Progress Note Date: 02/15/20 Principal diagnosis: This is a 55-year-old female patient who follows with Dr. Leroy on an outpatient basis. She has a past medical history of poorly differentiated squamous cell carcinoma, status post left upper lobectomy on 12/31/2019, hypertension, hyperlipidemia, chronic tobacco abuse, type 2 diabetes mellitus, cervical cancer status post hysterectomy, anxiety and bipolar disorder. On 01/28/2020 she had a follow-up visit with Dr. Teddy Wilkins for her pathology results of her recent left upper lobectomy. Upon exam of her surgical incisions there was a fluctuant area which was painful to touch on her left chest. Subsequently she was started on oral Keflex. Yesterday morning she developed some drainage from that incision site with the fluctuant area, leaking foul smelling yellowish fluid. Her initial lab results showed a WBC count 12.0, Hgb 8.3, neutrophils 59%, positive band neutrophil percent 24 and neutrophil numbers 9.0. A chest x-ray was completed which demonstrated a normal and the left hydropneumothorax, with no significant interval changes. She was admitted to observation to determine further treatment plans and surgical incision with consultation placed to Dr. Teddy Wilkins. POD #12 left thoracotomey. total lung decortication, pectoralis major pedicle flap transposition into the left pleural space, cryoablation of the intercostal nerves. Postoperative acute blood loss anemia, an expected outcome of surgery. Postoperative hypotension, an expected outcome due to hypovolemia. On 02/15/2020 the patient was seen at her bedside on the selective care unit in follow-up. She is sitting up to the bedside chair, is alert, oriented 3 and is in no acute distress. She remained hemodynamically stable, has been afebrile the last 24 hours and her oxygen saturations are 98% on 2 L nasal cannula. She is achieving 750 mL to 1000 mL on her incentive spirometry with encouragement. Denies any complaints of pain, although it remains complaining of episodes of shortness of breath with minimal activity. Continues to have a cough this morni ng, she reports that the cough is dry in nature with no sputum production. She was started on Levaquin yesterday by infectious disease for a slightly worsening right-sided pneumonia on her chest x-ray. She continues on Rocephin and oral Flagyl for antibiotic coverage as well. She is scheduled for a PICC line placement today for outpatient antibiotic infusions. Wound VAC dressing remains in place with dressing clean, dry and intact to her superficial left chest wound. The dressing is due to be changed today. Laboratory results today show a WBC count 13.8, hemoglobin 8.8, platelets 710, potassium 3.6, magnesium 1.5, BUN 8 and creatinine 0.75. Chest x-ray today continues to show patchy right- sided infiltrates and air-fluid level in the left hemithorax. Objective - Vital Signs Vital signs: Vital Signs Temp 98 F 02/15/20 03:35 Pulse 68 02/15/20 03:35 Resp 17 02/15/20 03:35 BP 149/66 02/15/20 03:35 Pulse Ox 98 02/15/20 03:35 Intake & Output 02/14/20 02/15/20 02/15/20 18:59 06:59 18:59 Intake Total 980 Output Total 404 Balance 980 -404 Weight 63.8 kg Intake: Intake, IV Titration 100 Amount cefTRIAXone 2 gm In 100 Sodium Chloride 0.9% 50 ml @ 100 mls/hr IVPB Q24HR [facility] Rx#:[id number] Oral 880 Output: Urine 404 Other: Voiding Method Bedside Commode # Voids 3 1 ABP, PAP, CO, CI - Last Documented Arterial Blood Pressure 170/95 - Exam This is a 55-year-old pleasant female patient who is sitting up to the bedside chair in the cardiac stepdown unit. She is in no acute distress. Oxygen saturations are 98% % on 2 L nasal cannula. She is hemodynamically stable and afebrile. - Constitutional General appearance: Present: average body habitus, cooperative, no acute distress - EENT Eyes: Present: PERRLA, normal appearance ENT: Present: hearing grossly normal, normal oropharynx - Neck Details: Neck is supple, no JVD. - Respiratory Details: Lung sounds essentially clear to her right lobes, diminished her bilateral bases left greater than right. Respirations are symmetrical and nonlabored. Oxygen saturation is 98% on 2 L nasal cannula. Achieving 750 mL to 1000 mL on her incentive spirometry. - Cardiovascular Details: Regular rhythm and rate. S1 and S2 present, negative for S3, gallop or murmur. - Gastrointestinal Gastrointestinal Comment(s): Abdomen is soft, nontender and nondistended. Active bowel sounds present in all 4 abdominal quadrants. No guarding or rigidity. General gastrointestinal: Absent: organomegaly - Integumentary Integumentary Comment(s): Skin is warm and dry. No clubbing or cyanosis is present. No rash or abnormal pigmentation is present. Left chest superficial wound with wound VAC dressing clean, dry and in place. - Neurologic Neurologic: Present: CNII-XII intact - Musculoskeletal Musculoskeletal: Present: gait normal, generalized weakness, strength equal bilaterally - Psychiatric Psychiatric: Present: A&O x's 3, appropriate affect, intact judgment & insight - Allied health notes Allied health notes reviewed: nursing - Labs CBC & Chem 7: 02/15/20 06:15 02/15/20 06:15 Labs: Abnormal Lab Results - Last 24 Hours (Table) 02/14/20 02/14/20 02/14/20 Range/Units 11:56 16:47 20:42 WBC (3.8-10.6) k/uL RBC (3.80-5.40) m/uL Hgb (11.4-16.0) gm/dL Hct (34.0-46.0) % MCHC (31.0-37.0) g/dL RDW (11.5-15.5) % Plt Count (150-450) k/uL Sodium (137-145) mmol/L Glucose (74-99) mg/dL POC Glucose (mg/dL) 118 H 112 H 138 H (75-99) mg/dL Calcium (8.4-10.2) mg/dL Magnesium (1.6-2.3) mg/dL 02/15/20 02/15/20 02/15/20 Range/Units 06:06 06:15 06:15 WBC 13.8 H (3.8-10.6) k/uL RBC 3.30 L (3.80-5.40) m/uL Hgb 8.8 L (11.4-16.0) gm/dL Hct 28.8 L (34.0-46.0) % MCHC 30.5 L (31.0-37.0) g/dL RDW 16.9 H (11.5-15.5) % Plt Count 710 H (150-450) k/uL Sodium 135 L (137-145) mmol/L Glucose 127 H (74-99) mg/dL POC Glucose (mg/dL) 129 H (75-99) mg/dL Calcium 8.0 L (8.4-10.2) mg/dL Magnesium 1.5 L (1.6-2.3) mg/dL - Imaging and Cardiology Chest x-ray: report reviewed, image reviewed Assessment and Plan Assessment: 1. Empyema left chest status post left upper lobectomy, status post left thoracotomy, total lung decortication, pectoralis major pedicle flap transposition into the left pleural space, cryoablation of intercostal nerves. 2. Superficial wound, with culture from 01/29/2020 positive for Actinomyces odontolyticus. Currently on Rocephin and Flagyl managed by infectious disease. Wound VAC dressings Saturday and Saturday. 3. History of poorly differentiated squamous cell carcinoma, status post left upper lobectomy on 12/31/2019 4. History of hypertension 5. History of hyperlipidemia 6. Previous tobacco dependence 7. Type 2 diabetes mellitus 8. History of cervical cancer status post hysterectomy 9. History of anxiety/bipolar disorder 10. Postoperative acute blood loss anemia, an expected outcome 11. Postoperative hypotension, an expected outcome, resolved Plan: 1. Lasix 40 mg IV 1 now. 2. Continue to encourage use of her incentive spirometry 10 times an hour while awake. 3. Continue to encourage smoking cessation. 4. Continue to hold Eliquis. No further episodes of atrial fibrillation. Continue subcu heparin /knee-high JOHAN hose and sequential compression devices for DVT prophylaxis. 5. Dressing changed to her left chest today 02/15/2020, using black granufoam sponge and connected to the wound VAC. Continue to change wound VAC Saturday. 6. Culture obtained in the operating room 02/03/2020 shows Actinomyces odontolyticus. Initial culture from her left chest wound from 01/29/2020 also showed Actinomyces odontolyticus continue Rocephin, and by mouth Flagyl managed by infectious disease. She was also started on Levaquin by infectious disease. 7. Continue GI and DVT prophylaxis. 8. Out of bed for all meals. Increase activity as tolerated with walking in the room. Physical therapy following. 9. Interventional radiology has been consulted for PICC line placement. Awaiting PICC line placement for outpatient antibiotic treatment. 10. Continue to monitor daily labs and chest x-rays. Replace electrolytes per protocol. 11. Continue to wean oxygen as tolerated, to keep sats greater than or equal to 92%. Bronchodilator management per pulmonary medicine service. 12. May shower today. 13. More recommendations to follow based on patient's clinical course. 14. Okay by the cardiothoracic surgery standpoint, once the patient has her PICC line in place to be discharged home with wound VAC treatments and o utpatient antibiotic treatment when okay by primary care service. Time with Patient: Greater than 30
[2020-02-15] MEDS: MAGNESIUM SULFATE-D5W PMX 1 GM in DEXTROSE/WATER 1 100ML.BAG IVPB SCH ×2 (10:18→12:40)
[2020-02-15] MEDS: HEPARIN SODIUM,PORCINE 5,000 UNIT/ML 1 ML VIAL SQ SCH (10:18)
--- NOTE | 2020-02-15 11:36 | IR ---
PICC LINE PLACEMENT: HISTORY: Infection requiring long-term antibiotic therapy PROCEDURE: Ultrasound and fluoroscopic guidance of PICC line placement. COMPLICATIONS: None ANESTHESIA: 1. 1% Lidocaine locally. FINDINGS/TECHNIQUE: The procedure was explained to the patient. The risks, complications, benefits and alternatives were discussed and any questions were answered. Informed consent was obtained. The patient was placed supine on the fluoroscopic table and prepped and draped in the usual sterile fash ion. Utilizing a 21 gauge needle and sonographic and fluoroscopic guidance, access in the left basi lic vein was achieved and there is placement of a 0.018 guidewire. The vein is patent. A 4-F sheath was placed over the guidewire. The guidewire and dilator were removed and a 4-F. PICC line was plac ed through the sheath with the tip at the level of the SVC. The sheath was removed, the catheter was flushed and sutured into position. The patient was stable throughout the procedure and remained sta ble upon discharge from the Department of Radiology. The vein puncture was patent under ultrasound. A pastor scale image was obtained to document patency of the vein punctured. All elements of the maximal barrier technique were utilized. FLUOROSCOPY TIME: 0.1 minutes and one image submitted IMPRESSION: Successful PICC line placement under ultrasound and fluoroscopic guidance.
[2020-02-15 11:46] LABS: Glucose,Whole Blood 114 mg/dL (75-99)
[2020-02-15 12:27] VITALS: TEMP 97.4
--- NOTE | 2020-02-15 12:27 | P.PN ---
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 Recent history left upper lobectomy for poorly differentiated squamous cell carcinoma This is a 55-year-old female patient who follows with Dr. Leroy on an outpatient basis. She has a past medical history of poorly differentiated squamous cell carcinoma, status post left upper lobectomy on 12/31/2019, hyperte nsion, hyperlipidemia, chronic tobacco abuse, type 2 diabetes mellitus, cervical cancer status post hysterectomy, anxiety and bipolar disorder. On 01/28/2020 she had a follow-up visit with Dr. Teddy Wilkins for her pathology results of her recent left upper lobectomy. Upon exam of her surgical incisions there was a fluctuant area which was painful to touch on her left chest. Subsequently she was started on oral Keflex. Yesterday morning she developed some drainage from that incision site with the fluctuant area, leaking foul smelling yellowish fluid. Her initial lab results showed a WBC count 12.0, Hgb 8.3, neutrophils 59%, positive band neutrophil percent 24 and neutrophil numbers 9.0. A chest x- ray was completed which demonstrated a normal and the left hydropneumothorax, with no significant interval changes. She was admitted to observation to determine further treatment plans and surgical incision with consultation placed to Dr. Teddy Wilkins. On 02/02/2020 patient was seen on follow-up on the fourth floor medical surgical unit. She is resting comfortably in bed, she is alert and oriented 3. Remains hemodynamically stable and is in no acute distress. She has been afebrile for the last 24 hours. Oxygen saturations are 96% on room air. Her left chest wound culture sensitivities remain pending, currently showing gram-positive bacilli. She is on meropenem and vancomycin for antibiotic coverage. Denies any complaints of shortness of breath or pain. The patient states that she had a shower this morning and that her left chest drainage site had minimal drainage from it in the last 12 hours. She was scheduled for a left thoracotomy with decortication for this morning to be performed by Dr. Teddy Wilkins. The procedure was changed and rescheduled for tomorrow 02/03/2020 as Elquis was stopped yesterday morning. Lab results today show a WBC count of 9.0, hemog lobin 10.1, and platelets 962. She is demonstrating good use of her incentive spirometry and achieving 1000 mL. On 02/03/2020 patient is seen in follow-up on general medical floor. She is calm and comfortable, vital signs are stable, room air pulse ox 96%, afebrile, respirations are nonlabored, left chest wound drainage is small amount, reddish in color today. Wound culture showed gram-positive bacilli, patient remains on combination of meropenem and vancomycin for possibility of empyema bro nchopleural fistula, patient has been scheduled for surgical decortication by Dr. Wilkins today. No acute events overnight. On 02/09/2020 patient seen in follow-up on selective care unit. Yesterday patient had episode of acute desaturation and worsening dyspnea and she was laid down flat for PICC line insertion. The procedure was not completed, patient returned to her room, she required placement on high flow oxygen, she could not tolerate BiPAP support. She was given a dose of oral Lasix, her chest x-ray yesterday showed worsening airspace disease throughout the right lung, and stable appearance of left hemithorax with 3 chest tubes with very small portion of aerated lung on the left. Patient has diuresed, she is in negative fluid balance, she is down 1.1 kg since yesterday, her proBNP came back at 4760, IV fluids have been cut back, yesterday's pro-calcitonin was trending down at 0.31, however it's back up again at 1.10, antibiotic coverage has been switched to Levaquin and vancomycin, ID service is following, patient has been afebrile. Today's labs have been reviewed on Web blood cell count of 9.8, hemoglobin of 7.4, electrolytes within normal limits, renal profile unremarkable On 02/10/2020 patient seen in follow-up on selective care unit, remains on AIRVO currently a 60 L/m, and FiO2 of 45%, and a pulse ox in the 100%, will Probably weaning FiO2 further, she has received additional dose of Lasix yesterday, she has diuresed, her weight is down by 0.9 kg since yesterday, today's chest x-ray shows improvement in the density of the patchy infiltrate in the right lung, and stable opacification of the left hemithorax with 3 left-sided chest tubes in place. She remains on antibiotics for left lung empyema with cultures positive for actinomycosis, current antibiotic coverage including Levaquin and vancomycin. ID service is following. D-dimer came back elevated at 1.66, CT chest with contrast has been obtained showing no clear evidence of pulmonary embolism, small amount of residual airspace disease on the left, and previous cavitary lesion is smaller, groundglass opacities throughout the lung cornejo likely related to us ability of pulmonary edema. Today's labs have been reviewed showing white blood cell count trending down, 7.9 on today's labs, hemoglobin 7.0, electrolytes and renal profile are unremarkable, patient has had no fever or chills, she still feels short of breath although does not appear to be in any acute distress. All 3 left-sided chest tubes including left lateral, left posterior and another left lateral are to waterseal, with serosanguineous drainage. CT surgery is following On 02/11/2020 patient seen in follow-up on selective care unit, she has been diuresed, today's chest x-ray shows stable extensive left-sided surgical changes with chest tubes in place, diffuse left lower edema and infiltrates, and persistent multifocal right mid to lower lung infiltrates with slight improvement. SHe is in negative fluid balance, received another dose of IV Lasix today. She remains on antibiotics in the form of Rocephin, and vancomycin and Flagyl. Her wound culture from the left chest wound showed actinomycosis. Patient has been afebrile, FiO2 is down to 3 L, her pulse ox is 92%, she is breathing easier, wound VAC is in place on the left chest wound. CT surgery is following, 3 left chest tubes are in place, and there has been no drainage out of the left posterior chest tube, left lateral chest tube has put out 100 mL o gilbert the last [address] surgery is planning on removing the 2 posterior chest tubes today On 02/12/2020 patient seen in follow-up on selective care unit, she is awake and alert, and continues to improve, yesterday she received an additional dose of Lasix, she made about 1300 mL in urine output, today's chest x-ray shows improvement in the appearance of multifocal right-sided airspace disease. Yesterday she had 2 posterior left-sided chest tubes removed, and she still has the remaining left anterior chest tube in place. Chest x-ray showed loculated air of a residual pneumothorax on the left and postsurgical changes on the left. Minimal drainage out of the remaining left-sided chest tube. Lung sounds are diminished on the left, and clear on the right side. FiO2 is down to 2 L, with a pulse ox of 96%, wound VAC is in place on the left chest wall wound. She remains on antibiotics, currently with Rocephin, Diflucan and vancomycin, wound culture showed actinomycosis odontolyticus. On 02/15/2020 patient seen in follow-up on selective care unit, she is calm and comfortable, she is on room air, earlier she was satting 100% on 2 L, vital signs are stable, she is afebrile, her chest tubes have been discontinued, today's chest x-ray shows patchy multifocal right-sided upper lung airspace, stable surgical changes of the left hemothorax. Patient remains on antibiotics in the form of Rocephin and Flagyl for actinomycesis empyema, likely improving, she is anticipated to be discharged home today, she received a PICC line today for a fusion off IV antibiotics after discharge. Objective - Vital Signs Vital signs: Vital Signs Temp 97.7 F 02/15/20 08:00 Pulse 70 02/15/20 08:00 Resp 20 02/15/20 08:00 BP 120/68 02/15/20 08:00 Pulse Ox 100 02/15/20 08:00 Intake & Output 02/14/20 02/15/20 02/15/20 18:59 06:59 18:59 Intake Total 980 120 Output Total 404 Balance 980 -404 120 Weight 63.8 kg Intake: Intake, IV Titration 100 Amount cefTRIAXone 2 gm In 100 Sodium Chloride 0.9% 50 ml @ 100 mls/hr IVPB Q24HR PENDING SALE TO [facility] Rx#:[id number] Oral 880 120 Output: Urine 404 Other: Voiding Method Bedside Commode Toilet # Voids 3 1 ABP, PAP, CO, CI - Last Documented Arterial Blood Pressure 170/95 - Exam GENERAL EXAM: Alert, very pleasant, 55-year-old white female, currently on 2 l/min with pulse ox of 100% comfortable in no apparent distress. HEAD: Normocephalic/atraumatic. EYES: Normal reaction of pupils, equal size. Conjunctiva pink, sclera white. NOSE: Clear with pink turbinates. THROAT: No erythema or exudates. NECK: No masses, no JVD, no thyroid enlargement, no adenopathy. CHEST: No chest wall deformity. Symmetrical expansion. Patient has interval removal of the 2 posterior left-sided chest tubes removed, and the left anterior chest tubes. Wound VAC is in place on left chest wound LUNGS: Equal air entry with no crackles, wheeze, rhonchi or dullness. CVS: Regular rate and rhythm, normal S1 and S2, no gallops, no murmurs, no rubs ABDOMEN: Soft, nontender. No hepatosplenomegaly, normal bowel sounds, no guarding or rigidity. EXTREMITIES: No clubbing, no edema, no cyanosis, 2+ pulses and upper and lower extremities. MUSCULOSKELETAL: Muscle strength and tone normal. SPINE: No scoliosis or deformity SKIN: Wound on the left posterior chest wall, with drainage of purulent serosanguineous drainage. CENTRAL NERVOUS SYSTEM: Alert and oriented -3. No focal deficits, tone is normal in all 4 extremities. PSYCHIATRIC: Alert and oriented -3. Appropriate affect. Intact judgment and insight. - Labs CBC & Chem 7: 02/15/20 06:15 02/15/20 06:15 Labs: Abnormal Lab Results - Last 24 Hours (Table) 02/14/20 02/14/20 02/15/20 Range/Units 16:47 20:42 06:06 WBC (3.8-10.6) k/uL RBC (3.80-5.40) m/uL Hgb (11.4-16.0) gm/dL Hct (34.0-46.0) % MCHC (31.0-37.0) g/dL RDW (11.5-15.5) % Plt Count (150-450) k/uL Sodium (137-145) mmol/L Glucose (74-99) mg/dL POC Glucose (mg/dL) 112 H 138 H 129 H (75-99) mg/dL Calcium (8.4-10.2) mg/dL Magnesium (1.6-2.3) mg/dL 02/15/20 02/15/20 02/15/20 Range/Units 06:15 06:15 11:45 WBC 13.8 H (3.8-10.6) k/uL RBC 3.30 L (3.80-5.40) m/uL Hgb 8.8 L (11.4-16.0) gm/dL Hct 28.8 L (34.0-46.0) % MCHC 30.5 L (31.0-37.0) g/dL RDW 16.9 H (11.5-15.5) % Plt Count 710 H (150-450) k/uL Sodium 135 L (137-145) mmol/L Glucose 127 H (74-99) mg/dL POC Glucose (mg/dL) 114 H (75-99) mg/dL Calcium 8.0 L (8.4-10.2) mg/dL Magnesium 1.5 L (1.6-2.3) mg/dL Assessment and Plan Plan: Assessment: #1. Acute empyema of the left chest, status post left thoracotomy, total lung decortication, pectoralis major pedicle flap transposition into the left pleural space, and cryoablation of the intercostal nerves, postoperative day 13# #2. Acute exacerbation of CHF, fluid overload previously documented diastolic dysfunction, from echocardiogram on 01/02/2020 EF is 55-60%, mild MR, mild TR, no evidence of PAH #3. Superficial wound, draining thin foul-smelling yellowish drainage, with blood cultures positive for gram-positive bacilli, and is on, on meropenem and vancomycin, and she is going for surgical decortication today on 02/03/[address] Wilkins. Wound cultures positive for actinomyces odontolyticus, current antibiotic coverage is with Rocephin., Flagyl #4. History of poorly differentiated squamous cell carcinoma, status post left upper lobectomy on 12/31/2019 #5. History of hypertension #6. History of hyperlipidemia #7. Previous tobacco dependence #8. Type 2 diabetes #9. History of cervical cancer status post hysterectomy #10. History of anxiety/bipolar disorder Plan: Patient is doing well, chest tubes have been discontinued, afebrile, hemodynamically stable, she is working and incentive spirometer, today's chest x-ray has been reviewed showing stable left sided postsurgical changes and right upper lobe elective/infiltrate. She is on room air, she's tolerating ambulation, her wound VAC has been changed by CT surgery, she got a PICC line inserted, for IV antibiotics post discharge, currently on Rocephin and Flagyl, ID service is following and making recommendations about antibiotics, she is anticipated to be discharged home today, follow up in the office with Dr. Fernandez. I performed a history & physical examination of the patient and discussed their management with my nurse practitioner, Bria Cid. I reviewed the nurse practitioner's note and agree with the documented findings and plan of care. Lung sounds are positive for diffuse wheezes throughout the lung cornejo. The findings and the impression was discussed with the patient. I attest to the documentation by the nurse practitioner. Time with Patient: Less than 30
[2020-02-15] MEDS: FERROUS SULFATE 325 MG TAB PO SCH (12:40)
[2020-02-15] MEDS: VALSARTAN 160 MG TAB PO SCH (12:40)
--- NOTE | 2020-02-15 13:44 | P.DS ---
Providers Date of admission: 01/30/20 15:03 Expected date of discharge: 02/15/20 Attending physician: Nathan Leroy Consults: 01/29/20 06:27 Consult Physician Routine Consulting Provider: Teddy Wilkins Consult Reason/Comments: mary Do you want consulting provider notified?: Yes 01/30/20 10:09 Consult Physician Routine Consulting Provider: César Fernandez Consult Reason/Comments: pulmonary management Do you want consulting provider notified?: Yes 02/02/20 18:33 Consult Physician Routine Consulting Provider: Corona Champion Consult Reason/Comments: Antibiotics/possible PICC Do you want consulting provider notified?: Yes Primary care physician: Nathan Leroy [facility] Course: Final Diagnoses: -Empyema of the left pleural space ,status post left thoracotomy, total lung decortication, pectoralis major pedicle flap into left pleural space, cryoablation of the intercostal nerves. Cultures reporting actinomyces. Current Visit: Yes Status: Acute Priority: High Code(s): J94.8 - OTHER SPECIFIED PLEURAL CONDITIONS SNOMED Code(s): 92372809 -Possible Right-sided pneumonia, gram-positive, not present on admission -Acute CHF exacerbation, diastolic dysfunction secondary fluid overload - Acute respiratory failure secondary to the above, status post Airvo, - Essential (primary) hypertension Current Visit: No Status: Chronic Priority: Medium Code(s): I10 - ESSENTIAL (PRIMARY) HYPERTENSION SNOMED Code(s): 84927438 -Hypokalemia, currently resolved Current Visit: Yes Status: Acute Priority: High Code(s): E87.6 - HYPOKALEMIA SNOMED Code(s)95950244 - Acute post op blood loss anemia , expected, status post transfusion and packed RBCs Current Visit: Yes Status: Chronic Priority: Medium Code(s): D50.9 - IRON DEFICIENCY ANEMIA, UNSPECIFIED SNOMED Code(s): 822570489 -Poorly differentiated squamous cell CA, left upper lobe Current Visit: Yes Status: Acute Code(s): C34.90 - MALIGNANT NEOPLASM OF UNSP PART OF UNSP BRONCHUS OR LUNG SNOMED Code(s): 132527980 - S/P lobectomy of the left upper lung , 12/31/2019 Current Visit: Yes Status: Chronic Priority: Low Code(s): Z90.2 - ACQUIRED ABSENCE OF LUNG [PART OF] SNOMED Code(s): 85388652602714312 - hypomagnesemia - Hyponatremia Current Visit: Yes Status: Acute Code(s): E87.1 - HYPO-OSMOLALITY AND HYPONATREMIA SNOMED Code(s): 83854773 -Major depressive disorder, recurrent, moderate Current Visit: No Status: Acute Code(s): F33.1 - MAJOR DEPRESSIVE DISORDER, RECURRENT, MODERATE SNOMED Code(s): 403769170 -Type 2 diabetes mellitus without complications Current Visit: No Status: Acute Code(s): E11.9 - TYPE 2 DIABETES MELLITUS WITHOUT COMPLICATIONS SNOMED Code(s): 613265555 - Fibromyalgia Current Visit: Yes Status: Acute Code(s): M79.7 - FIBROMYALGIA SNOMED Code(s): 503884704 - hypoproteinemia - Paroxysmal atrial fibrillation, Eliquis on hold Current Visit: Yes Status: Chronic Priority: Medium Code(s): I48.0 - PAROXYSMAL ATRIAL FIBRILLATION SNOMED Code(s): 408096717 - Midline placement. 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 Patient had seen cardiothoracic surgeon Dr. Wilkins yesterday, started on oral Keflex. Afebrile, WBC12, vital signs stable. Hemoglobin 8.3, sodium 131, potassium 3.1, magnesium 1.5. Al kaline phosphatase mildly elevated 134. Chest x-ray reporting known left hydropneumothorax, trachea midline, right lung clear. EKG reporting normal sinus rhythm, lateral infarct, age undetermined. Troponin negative 1. Denies chest pain, palpitations or shortness of breath. Denies lightheadedness, dizziness or focal deficits. 01/30/2020: The patient was not discharged last night as a potassium of return to normal. She does have a small leukocytosis which may be consistent with her recent surgeries and lung cancer, however a repeat is pending for this morning. I discussed the case currently with thoracic surgery and they felt that because of the white count, Keflex and discharged to be held. We discussed pulmonology consult which was done. That is in progress and they had ordered a CT chest showing an air-fluid level and dense consolidation remainder of the lung left lobe after left upper lobectomy. The margins suggested infection. Currently she's been placed on meropenem. Her wound continues to drain. Cultures are pending, but currently show no growth. He denies any significant chest pains, pressures, or shortness of breath this time. She denies any nausea or vomiting. She reports her appetite is little bit improved. She had not been eating well recently due to her cancer and treatment. Potassium this morning is 3.2. 01/31/2020: Her case was discussed with vascular surgery, they will plan a a large debridement of her chest wound in the next 48 hours. She remains on amiodarone and Elequis for anticoagulation due to atrial fibrillation. She continues on meropenem and vancomycin for her Lung empyema after robotically assisted left upper lobectomy for squamous cell carcinoma. He remains on bisoprolol for blood pressure control, but it remains somewhat elevated. Hemoglobin is dropped from 8.3 down to 6.4. A stat repeat is now 6.9. Her platelets continue to be elevated, most likely reactive, now 1044. She remains hyponatremic at 133. She denies any significant chest pains, pressures, or shortness of breath other than with exertion. She denies any significant nausea or vomiting. Staff reports she is complaining some vaginal itching and irritation. Potassium is now up to 4.2 today. 02/01/2020 Wound cultures reporting gram-positive bacilli isolated. Maintained on vancomycin, Merrem. Continues having purulent drainage from lateral left chest incision site. Tested negative for coronavirus. Afebrile, WBC WNL. Hemoglobin 8.2. Telemetry sinus rhythm. Denies chest pain, palpitations. 02/02/2020 received Eliquis yesterday, surgery, rescheduled for tomorrow for 02/03/20. Hypertensive, hydralazine initiated yesterday. Drainage continues. Afebrile, WBC within normal limits. Maintaining O2 sats in the 90s on room air. Hemoglobin 10.1. 02/03/2020 NPO, Eliquis remains on hold. OR pending. Hypertensive. Hemoglobin 8.8. Continues maintaining O2 sats in the mid 90s on room air. Afebrile, WBC WNL. 02/04/2020 yesterday underwent left thoracotomey. total lung decortication, pectoralis major pedicle flap transposition into the left pleural space, cryoablation of the intercostal nerves, with placement of 3 left pleural chest tubes,tolerated procedure well. Left pleural chest tube insertion sites discomfort. Maintaining O2 sats in the 90s on room air. Incentive spirometer up to 1000. Maintained on vancomycin, Merrem Chest x-ray reporting surgical changes, chest tubes, complete opacified left hemothorax with mediastinal shift, improving subcutaneous emphysema. Eliquis remains on hold. Wound culture reporting gram-positive bacilli. Telemetry sinus bradycardia. Hemoglobin 7.9, received 1 unit postop of packed RBCs in addition to IV fluid resuscitation, albumin. Borderline hypotension with systolic blood pressures in the low 90s, MAP 61. 02/05/2020 evaluated by infectious disease with antibiotics adjusted. Currently maintained on Rocephin and Flagyl. Renal function improving, creatinine down to 1.27. Hemoglobin down to 7,(EBL 300 of recent surgery) Maintaining O2 sats in the 90s on room air. Chest x-ray reporting 3 left-sided chest tubes, some subcutaneous emphysema along the left hemothorax, some increasing patchy opacity in the periphery of the right mid and lower lung, continued complete whiteout of the left hemithorax. Sodium 132. Yesterday hypotensive, requiring albumin, antihypertensives held. Currently systolic blood pressure in the 130s reported per staff without antihypertensives on board. 02/08/2020 maintaining O2 sats in the 90s on room air. Hemoglobin 8. Maintained on Rocephin and Flagyl . Chest x-ray reporting worsening multifocal alveolar right-sided airspace disease, confluent .Wound cultures positive for Actinomyces odontolyticus. Scheduled for PICC line placement today. Complains of left chest tubes insertion sites discomfort. 02/09/2020 Yesterday went down for PICC line, wearing 2 L nasal cannula, attempted to lie flat, went into respiratory distress, midline placed instead .O2 requirement significantly increased up to 50% airvo.Chest CT ordered yesterday, not completed as patient unable to lie flat.Maintaining O2 sats in the high 90s on 50% high flow/Airvo. Nonproductive cough. Chest x-ray reporting 3 chest tubes remain in place with near complete whiteout of the left hemothorax, very small portions of aerated lung remain unchanged. Right-sided airspace disease similar to minimally less confused. Received a dose of Levaquin yesterday as per ID in addition to vancomycin added to antibiotic regimen of Rocephin and Flagyl .creatinine 0.77 .No nausea, vomiting or diarrhea. Positive bowel movement yesterday. Blood sugars controlled. Afebrile, normal WBC. Sputum culture ordered. Hemoglobin 7.4. Wound VAC placed yesterday. Pro- calcitonin level trending down. Denies chest pain, palpitations. Telemetry sinus rhythm. 02/10/2020 currently on 45% high flow nasal cannula, maintaining O2 sats of 100%. Hemoglobin down to 7. Incentive spirometer up to 1000. Chest x-ray reporting complete opacification of the left hemothorax, 3 left-sided chest tubes, some left lateral apical free air versus residual lung aeration-stable, patchy infiltrate right lung-stable. Denies increase in shortness of breath. Denies chest pain, palpitations. Denies lightheadedness, dizziness or focal deficits. Afebrile, normal WBC. Magnesium 1.5. Blood sugars controlled. As patient was unable to proceed with CT yesterday, d-dimer ordered, elevated 1.6. Patient is going down this morning to attempt CT with contrast. 02/11/2020 CT performed yesterday morning small residual airspace disease, previous cavitary lesion significantly smaller, multiple left-sided chest tubes present, groundglass opacity; feels developing from comparison study, possible atypical pneumonia, pulmonary edema. Nonproductive cough. Yesterday afternoon, anxiety increased, with subsequent increase in O2 up to 10 L nasal cannula. Chest x-ray this morning reporting stable, extensive left-sided surgical change, diffuse left lung edema and/or infiltrates, persistent less prominent multifocal right mid to lower lung acute infiltrates and/or edema without mediastinal shift. This morning FiO2 weaned down to 3 L, maintaining O2 sats in the low 90s. Hemoglobin 6.8. Scheduled to have her mid and posterior left chest tubes discontinued with anterior chest tube being left in. More motivated this morning, participated with physical therapy, ambulating in room, tolerating exertion well. 02/12/20 Continues to well, hemoglobin 9.2, status post transfusion 1 unit packed RBCs yesterday. Down to one left pleural chest tube, maintaining O2 sats in the 90s on 2 L nasal cannula. IS up to 750-1000ml.IV antibiotics as per infectious disease. Chest x-ray noted , loculated air of a residual left pneumothorax, stable multifocal right-sided airspace disease.PICC line placement pending as per ID. blood sugars controlled. Afebrile, WBC up to 13. Echo reporting limited study preserved LV function, EF 55-60%, small generalized pericardial effusion. Significant clinical improvement. Cleared by all consults for discharge. PICC line placed. Pain management as per cardiothoracic surgery. Antibiotics as per ID. Patient is being discharged home in stable condition with guarded prognosis. Microbiology 02/03/20 15:46 Other - Other Gram Stain - Final 02/03/20 15:46 Other - Other Wound Culture - Final Actinomyces odontolyticus 02/03/20 15:46 Other - Other Anaerobic Culture - Final 01/29/20 09:00 Chest Gram Stain - Final 01/29/20 09:00 Chest Wound Culture - Final Actinomyces odontolyticus The impression and plan of care has been dictated as directed. : I performed a history and examination of this patient, discussed the same with the dictator. I agree with the dictator's note ,documented as a scribe. Any additional findings or plans will be noted. Patient Condition at Discharge: Stable Plan - Discharge Summary Discharge Rx Participant: No New Discharge Prescriptions: New Magnesium Oxide [Mag-Ox] 400 mg PO BID #0 tab metroNIDAZOLE [Flagyl] 500 mg PO Q8HR #90 tab cefTRIAXone [Rocephin] 2,000 mg IVP Q24HR #42 vial hydrALAZINE HCL [Apresoline] 50 mg PO QID #120 tab Valsartan [Diovan] 160 mg PO DAILY #30 tab Ferrous Sulfate [Iron (65 MG Elemental)] 325 mg PO W/LUNCH #30 tab Furosemide [Lasix] 20 mg PO DAILY #30 tab amLODIPine [Norvasc] 10 mg PO DAILY #30 tab Sennosides-Docusate Sodium [Senokot-S] 2 each PO HS tab Acetaminophen Tab [Tylenol] 1,000 mg PO Q6HR PRN tab PRN Reason: Fever And/ Or Pain Ascorbic Acid [Vitamin C] 500 mg PO DAILY tab Continue DULoxetine HCL [Cymbalta] 60 mg PO DAILY metFORMIN HCL 500 mg PO BID Bisoprolol Fumarate [Zebeta] 10 mg PO DAILY Pantoprazole Sodium 40 mg PO AC-BRKFST Albuterol Inhaler [Ventolin Hfa Inhaler] 2 puff INHALATION RT-QID PRN PRN Reason: Shortness Of Breath Discontinued Acetaminophen Tab [Tylenol] 325 mg PO Q6H PRN PRN Reason: Pain Amiodarone [Cordarone] 200 mg PO DAILY Apixaban [Eliquis] 5 mg PO BID Discharge Medication List DULoxetine HCL [Cymbalta] 60 mg PO DAILY 06/04/16 [History] metFORMIN HCL 500 mg PO BID 12/28/19 [History] Albuterol Inhaler [Ventolin Hfa Inhaler] 2 puff INHALATION RT-QID PRN 01/29/20 [History] Bisoprolol Fumarate [Zebeta] 10 mg PO DAILY 01/29/20 [History] Magnesium Oxide [Mag-Ox] 400 mg PO BID #0 tab 01/29/20 [Rx] Pantoprazole Sodium 40 mg PO AC-BRKFST 01/29/20 [History] cefTRIAXone [Rocephin] 2,000 mg IVP Q24HR #42 vial 02/12/20 [Rx] metroNIDAZOLE [Flagyl] 500 mg PO Q8HR #90 tab 02/12/20 [Rx] Acetaminophen Tab [Tylenol] 1,000 mg PO Q6HR PRN tab 02/15/20 [Rx] Ascorbic Acid [Vitamin C] 500 mg PO DAILY tab 02/15/20 [Rx] Ferrous Sulfate [Iron (65 MG Elemental)] 325 mg PO W/LUNCH #30 tab 02/15/20 [Rx] Furosemide [Lasix] 20 mg PO DAILY #30 tab 02/15/20 [Rx] Sennosides-Docusate Sodium [Senokot-S] 2 each PO HS tab 02/15/20 [Rx] Valsartan [Diovan] 160 mg PO DAILY #30 tab 02/15/20 [Rx] amLODIPine [Norvasc] 10 mg PO DAILY #30 tab 02/15/20 [Rx] hydrALAZINE HCL [Apresoline] 50 mg PO QID #120 tab 02/15/20 [Rx] Follow up Appointment(s)/Referral(s): Teddy Wilkins MD [STAFF PHYSICIAN] - 02/25/20 10:00 am [facility], [NON-STAFF] - [facility],Infusion [NON-STAFF] - Nathan Leroy MD [Primary Care Provider] - 3 Days (office Closed at time of discharge. Please call office on Saturday to make appointment) Corona Champion MD [STAFF PHYSICIAN] - 1 Week Ambulatory/Diagnostic Orders: Complete Blood Count w/diff [LAB.AMB] Time Frame: 3 Days, Location: None Selected XR chest 2V [RAD.AMB] Time Frame: 02/25/20, Facility: [facility], Location: [facility] Activity/Diet/Wound Care/Special Instructions: Pain meds as per cardiothoracic surgery .Report to Dr. Champion's office/[facility] on 02/16/2020 @9:30 a.m. for IV antibiotic infusion. [address] [place] [id number] IS q`1h [place] Wound VAC instructions: Change her wound VAC dressing to her left chest superficial wound Mondays, Wednesdays and Fridays with home care assistance. Wound VAC settings: Continuous mode, medium intensity with pressure 125 mmHg. Use small Granufoam Black. She is scheduled to see Dr. Teddy Wilkins in the office on , 02/25/2020 at 10 AM. She has been instructed to please bring her wound VAC dressing change supplies with her and Dr. Wilkins will change in the office on . She has been given a prescription to obtain a 2 view chest x-ray prior to her follow-up visit for , 02/25/2020. Discharge Disposition: HOME WITH HOME HEALTH SERVICES
[2020-02-15 14:30] VITALS: BP 111/60; PULSE 66; RESP 16
--- NOTE | 2020-02-15 16:41 | PN ---
PROGRESS NOTE DATE OF SERVICE: 02/15/2020 REASON FOR FOLLOWUP: Left-sided empyema. INTERVAL HISTORY: The patient is currently afebrile. The patient is breathing comfortably on room air. The patient denies having any chest pain. Minimal cough. No nausea, no vomiting. No abdominal pain, no diarrhea. PHYSICAL EXAMINATION: Blood pressure 111/60 with a pulse of 66. Temp 97.4. She is 93% on room air. General description is a middle-aged female, lying in bed in no distress. RESPIRATORY SYSTEM: Unlabored breathing. Decreased breath sounds at the base, no wheeze. HEART: S1, S2. Regular rate and rhythm. ABDOMEN: Soft, no tenderness. LABS: Hemoglobin is 8.2, white count of 13.8. DIAGNOSTIC IMPRESSION AND PLAN: Patient with left-sided empyema, status post decortication. Culture has been Actinomyces. Patient did have PENICILLIN ALLERGY. She is on Rocephin and Flagyl to continue for 6 weeks, weekly monitoring of CBC, BMP and sedimentation rate and close outpatient followup. MMODL / IJN: [id number] /
[2020-02-16] MEDS ORDERED: POTASSIUM CHLORIDE ER 10 MEQ TAB.ER.PRT PO SCH (09:00)
[2020-02-16] MEDS ORDERED: FUROSEMIDE 20 MG TAB PO SCH (09:00)
== END 2020-02-15 15:55 | disposition home health service (06) | DRG 163 ==
LOC: EC 04:33 → 4SSUR 06:28 → OBSVTOIN 01-30 15:03 → 2SICU 02-03 12:42 → 3SCARD 02-06 12:52
PROVIDERS: ADMIT Family Medicine; ATTEND Family Medicine
PROC: 30230N1 Transfusion of Nonautologous Red Blood Cells into Peripheral Vein, Open Approach (ICD-10-PCS; 2020-01-31)
PROC: 05HF33Z Insertion of Infusion Device into Left Cephalic Vein, Percutaneous Approach (ICD-10-PCS; 2020-02-02)
PROC: 05HC33Z Insertion of Infusion Device into Left Basilic Vein, Percutaneous Approach (ICD-10-PCS; 2020-02-08)
PROC: 5A09457 Assistance with Respiratory Ventilation, 24-96 Consecutive Hours, Continuous Positive Airway Pressure (ICD-10-PCS; 2020-02-08)
PROC: 02HV33Z Insertion of Infusion Device into Superior Vena Cava, Percutaneous Approach (ICD-10-PCS; 2020-02-15)
PROC: 0W9B00Z Drainage of Left Pleural Cavity with Drainage Device, Open Approach (ICD-10-PCS; principal; 2020-02-15 07:30)
PROC: 01580ZZ Destruction of Thoracic Nerve, Open Approach (ICD-10-PCS; principal; 2020-02-15 07:30)
PROC: 0KXJ0ZZ Transfer Left Thorax Muscle, Open Approach (ICD-10-PCS; principal; 2020-02-15 07:30)
PROC: 0BNL0ZZ Release Left Lung, Open Approach (ICD-10-PCS; principal; 2020-02-15 07:30)
DX: J86.9 Pyothorax without fistula (principal); I50.33 Acute on chronic diastolic (congestive) heart failure; J96.01 Acute respiratory failure with hypoxia; J18.9 Pneumonia, unspecified organism; J94.8 Other specified pleural conditions; I31.3 Pericardial effusion (noninflammatory); B37.0 Candidal stomatitis; D62 Acute posthemorrhagic anemia; E87.1 Hypo-osmolality and hyponatremia; C34.12 Malignant neoplasm of upper lobe, left bronchus or lung; F33.1 Major depressive disorder, recurrent, moderate; J44.0 Chronic obstructive pulmonary disease with (acute) lower respiratory infection; A42.0 Pulmonary actinomycosis; J98.2 Interstitial emphysema; E77.8 Other disorders of glycoprotein metabolism; I11.0 Hypertensive heart disease with heart failure; E11.9 Type 2 diabetes mellitus without complications; I48.0 Paroxysmal atrial fibrillation; I95.9 Hypotension, unspecified; Z20.828 Contact with and (suspected) exposure to other viral communicable diseases; D50.9 Iron deficiency anemia, unspecified; E83.42 Hypomagnesemia; E87.6 Hypokalemia; E86.1 Hypovolemia; I08.1 Rheumatic disorders of both mitral and tricuspid valves; E78.5 Hyperlipidemia, unspecified; M79.7 Fibromyalgia; F41.9 Anxiety disorder, unspecified; R00.1 Bradycardia, unspecified; F17.211 Nicotine dependence, cigarettes, in remission; Z71.6 Tobacco abuse counseling; Z79.84 Long term (current) use of oral hypoglycemic drugs; Z79.01 Long term (current) use of anticoagulants; Z79.899 Other long term (current) drug therapy; Z90.2 Acquired absence of lung [part of]; Z90.710 Acquired absence of both cervix and uterus; Z85.41 Personal history of malignant neoplasm of cervix uteri; Z88.0 Allergy status to penicillin; Z91.048 Other nonmedicinal substance allergy status; Z80.3 Family history of malignant neoplasm of breast; Z80.1 Family history of malignant neoplasm of trachea, bronchus and lung; Z83.3 Family history of diabetes mellitus
CPT/HCPCS: 36410; 36415; 36430; 36573; 71045; 71046; 71260; 76937; 80048; 80053; 80202; 81003; 82272; 82550; 82553; 82728; 83036; 83540; 83550; 83735; 83880; 83930; 83935; 84100; 84132; 84145; 84300; 84439; 84443; 84484; 85025; 85027; 85379; 85610; 85730; 86850; 86900; 86901; 86920; 87070; 87075; 87205; 87635; 88305; 93005; 93308; 94640; 94660; 94760; 96361; 96374; 99285

== ENCOUNTER 2020-02-23 00:35 | Emergency (ER) | payer OTHER ==
[2020-02-23 00:50] VITALS: RESP 18
[2020-02-23 00:52] LABS: Glucose,Whole Blood 160 mg/dL (75-99)
[2020-02-23] MEDS ORDERED: ONDANSETRON ODT 4 MG TAB PO STA (01:11)
--- NOTE | 2020-02-23 02:07 | ED ---
Recheck HPI - General Chief Complaint: Recheck/Abnormal Lab/Rx Stated Complaint: Overdose Time Seen by Provider: 02/23/20 00:54 Source: patient Mode of arrival: wheelchair Limitations: no limitations - History of Present Illness Initial Comments: This patient is 55-year-old woman who presents to be evaluated after she had actually taken a double dose of her evening medications. The patient's states that he usually manages her nighttime medications, and he had asked only given her her nighttime medicines second time at approximately 10:15 PM. He then discussed this with poison control and they recommended that she be seen in the emergency department. The patient states she is feeling okay but having a little bit nausea. She has had chronic issues with nausea since her previous hospital admission. She received extra dose of antihypertensive and she is not feeling symptoms of orthostasis. She is not lightheaded, no chest pain, dys pnea, palpitations. MD Complaint: other (Accidental overdose) -: hour(s) Returns Today for: other Symptoms Since Prior Visit: no new symptoms - Related Data Home Medications Medication Instructions Recorded Confirmed DULoxetine HCL [Cymbalta] 60 mg PO DAILY 06/04/16 01/29/20 metFORMIN HCL 500 mg PO BID 12/28/19 01/29/20 Albuterol Inhaler [Ventolin Hfa 2 puff INHALATION RT-QID PRN 01/29/20 01/29/20 Inhaler] Bisoprolol Fumarate [Zebeta] 10 mg PO DAILY 01/29/20 01/29/20 Pantoprazole Sodium 40 mg PO AC-BRKFST 01/29/20 01/29/20 Previous Rx's Medication Instructions Recorded Magnesium Oxide [Mag-Ox] 400 mg PO BID #0 tab 01/29/20 cefTRIAXone [Rocephin] 2,000 mg IVP Q24HR #42 vial 02/12/20 metroNIDAZOLE [Flagyl] 500 mg PO Q8HR #90 tab 02/12/20 Acetaminophen Tab [Tylenol] 1,000 mg PO Q6HR PRN tab 02/15/20 Ascorbic Acid [Vitamin C] 500 mg PO DAILY tab 02/15/20 Ferrous Sulfate [Iron (65 MG 325 mg PO W/LUNCH #30 tab 02/15/20 Elemental)] Furosemide [Lasix] 20 mg PO DAILY #30 tab 02/15/20 Sennosides-Docusate Sodium 2 each PO HS tab 02/15/20 [Senokot-S] Valsartan [Diovan] 160 mg PO DAILY #30 tab 02/15/20 amLODIPine [Norvasc] 10 mg PO DAILY #30 tab 02/15/20 hydrALAZINE HCL [Apresoline] 50 mg PO QID #120 tab 02/15/20 Allergies Allergy/AdvReac Type Severity Reaction Status Date / Time mold Allergy Unknown Dyspnea, Verified 02/23/20 00:52 Rash, Swelling Penicillins Allergy Unknown Verified 02/23/20 00:52 Childhood Review of Systems ROS Statement: Those systems with pertinent positive or pertinent negative responses have been documented in the HPI. ROS Other: All systems not noted in ROS Statement are negative. Constitutional: Denies: fever, chills, weakness Respiratory: Denies: cough, dyspnea Cardiovascular: Denies: chest pain, palpitations, syncope Gastrointestinal: Reports: nausea, vomiting. Denies: abdominal pain Genitourinary: Denies: dysuria, hematuria Musculoskeletal: Denies: back pain Skin: Denies: rash Neurological: Denies: headache Past Medical History Past Medical History: Cancer, COPD, Diabetes Mellitus, Fibromyalgia, Hyperlipidemia, Hypertension Additional Past Medical History / Comment(s): HX OF CERVICAL CANCER WITH HYSTERECTOMY, NEW DIAGNOSIS LUNG CANCER., STATES SOB AT TIMES, COUGHING UP BLOOD. History of Any Multi-Drug Resistant Organisms: None Reported Past Surgical History: Hysterectomy Additional Past Surgical History / Comment(s): VAGINAL HYSTERECTOMY, upper left lobectomy Past Anesthesia/Blood Transfusion Reactions: No Reported Reaction, Motion Sickn ess Past Psychological History: Anxiety, Bipolar, Depression Smoking Status: Former smoker Past Alcohol Use History: None Reported Past Drug Use History: None Reported - Past Family History Mother Family Medical History: Cancer, Diabetes Mellitus Additional Family Medical History / Comment(s): BREAST CANCER Father Family Medical History: Cancer Additional Family Medical History / Comment(s): LUNG CANCER General Exam Limitations: no limitations General appearance: alert, in no apparent distress Head exam: Present: atraumatic, normocephalic Respiratory exam: Present: decreased breath sounds (Left base). Absent: respiratory distress, wheezes, rales, rhonchi, stridor Cardiovascular Exam: Present: regular rate, normal rhythm, normal heart sounds. Absent: systolic murmur, diastolic murmur, rubs, gallop GI/Abdominal exam: Present: soft. Absent: distended, tenderness, guarding, rebound, rigid Extremities exam: Present: normal inspection, normal capillary refill. Absent: pedal edema, calf tenderness Neurological exam: Present: alert Skin exam: Present: warm, dry, intact, normal color. Absent: rash Course Vital Signs 02/23/20 02/23/20 02/23/20 00:40 01:15 01:30 Temperature 98 F Pulse Rate 86 Respiratory 18 Rate Blood Pressure 128/76 148/79 159/81 O2 Sat by Pulse 98 Oximetry 02/23/20 01:45 Temperature Pulse Rate Respiratory Rate Blood Pressure 162/81 O2 Sat by Pulse Oximetry Medical Decision Making - Lab Data Lab Results 02/23/20 Range/Units 00:51 POC Glucose (mg/dL) 160 H (75-99) mg/dL POC Glu Complaint Specialist ID Neva Wiseman Disposition Clinical Impression: Accidental overdose Disposition: HOME SELF-CARE Condition: Good Instructions (If sedation given, give patient instructions): Adult Overdose (ED) Is patient prescribed a controlled substance at d/c from ED?: No Referrals: Nathan Leroy MD [Primary Care Provider] - 1-2 days
[2020-02-23] MEDS ORDERED: MORPHINE SULFATE 4 MG/ML SYRINGE IV STA (02:09)
[2020-02-23 02:10] VITALS: PULSE 94; TEMP 97.7
[2020-02-23] MEDS ORDERED: MORPHINE SULFATE 4 MG/ML SYRINGE IM STA (02:11)
[2020-02-23 02:44] VITALS: BP 151/82
== END 2020-02-23 02:48 | disposition home or self-care (01) ==
LOC: EC 00:35
DX: T38.3X1A Poisoning by insulin and oral hypoglycemic [antidiabetic] drugs, accidental (unintentional), initial encounter (principal); T46.1X1A Poisoning by calcium-channel blockers, accidental (unintentional), initial encounter; T46.5X1A Poisoning by other antihypertensive drugs, accidental (unintentional), initial encounter; T37.3X1A Poisoning by other antiprotozoal drugs, accidental (unintentional), initial encounter; R09.89 Other specified symptoms and signs involving the circulatory and respiratory systems; R11.2 Nausea with vomiting, unspecified; I10 Essential (primary) hypertension; F41.9 Anxiety disorder, unspecified; F31.9 Bipolar disorder, unspecified; E11.9 Type 2 diabetes mellitus without complications; J44.9 Chronic obstructive pulmonary disease, unspecified; M79.7 Fibromyalgia; Z79.51 Long term (current) use of inhaled steroids; Z79.84 Long term (current) use of oral hypoglycemic drugs; Z79.899 Other long term (current) drug therapy; Z88.0 Allergy status to penicillin; Z91.048 Other nonmedicinal substance allergy status; Z85.118 Personal history of other malignant neoplasm of bronchus and lung; Z85.41 Personal history of malignant neoplasm of cervix uteri; Z90.710 Acquired absence of both cervix and uterus; Z87.891 Personal history of nicotine dependence; Z90.2 Acquired absence of lung [part of]
CPT/HCPCS: 36415; 96372; 99284; J2270

== ENCOUNTER → 2020-02-25 | Outpatient (CLI) | payer OTHER ==
--- NOTE | 2020-02-25 13:50 | XR ---
EXAMINATION TYPE: XR chest 2V DATE OF EXAM: 02/25/2020 COMPARISON: Chest x-ray 10 days ago and older studies. CT chest February 10, 2020. HISTORY: Postop left thoracotomy. TECHNIQUE: Frontal and lateral views of the chest are obtained. FINDINGS: New left-sided PICC line terminating in SVC. Nearly completely opacified left hemithorax w ith left-sided volume loss fairly similar to most recent x-ray. Improved aeration of lateral right up per lung. Background chronic emphysematous change. Osseous structures are intact. IMPRESSION: Left-sided postsurgical changes. Resolved right upper lung acute infiltrate.
== END | disposition home or self-care (01) ==
LOC: RADXRMAIN 10:27
PROVIDERS: ATTEND Nurse Practitioner Family
DX: Z98.890 Other specified postprocedural states (principal)
CPT/HCPCS: 71046

== ENCOUNTER → 2020-02-29 | Outpatient (CLI) | payer OTHER ==
--- NOTE | 2020-02-29 15:52 | CT ---
EXAMINATION TYPE: CT chest w con DATE OF EXAM: 02/29/2020 COMPARISON: 02/10/2020 HISTORY: follow up lung cancer, prior left thoracotomy CT DLP: 358 mGycm. Automated Exposure Control for Dose Reduction was Utilized. TECHNIQUE: CT scan of the thorax is performed following with IV Contrast, patient injected with 100 mL of Isovue 300. FINDINGS: LUNGS: There are numerous cavitary, loculated areas within the left pleural space and lower lobe of t he collapsed left residual lung. Surgical sutures of the left mediastinum from partial left lung rese ction. There is invagination of left thoracic wall fat on image 19 into the left thoracic cavity and multiple adjacent left rib osseous defects from the prior left thoracotomy. The fluid collections in the left hemithorax with air-fluid levels demonstrate peripheral enhancement concerning for infection such as pulmonary abscesses. Left thoracotomy tube has been pulled in the loculated portion of a pne umothorax is seen medially elongated along the entire hemithorax in craniocaudal dimension. Scattered areas of probable subsegmental atelectasis, markedly improved from the prior, in the right lung and minimal emphysematous changes. Minimal subcutaneous emphysema on the left. No mediastinal sh ift. MEDIASTINUM: Numerous shotty superior mediastinal lymph nodes and lymph nodes in the prevascular spac e are seen as well as precarinal lymph node measuring 9 mm in short axis and subcarinal lymph node me asuring 9 mm in short axis. These all may be reactive. Very trace pericardial effusion is seen. At le ast moderate coronary calcifications are evident, marker of coronary artery disease. OTHER: Left subclavian approach central venous catheter terminates in the distal superior vena cava. Two left adrenal gland nodules appear new from the prior of 10/20/2019 and therefore concerning for met astasis measuring 1.5 cm and 1.1 cm. Few surrounding prominent lymph nodes are seen just inferior to these nodules. Cholelithiasis noted. IMPRESSION: 1. Interval development of innumerable cavitary spaces in the residual left lower lung and pleural ca vity with peripheral enhancement and air-fluid levels concerning for infectious etiology such as mult ifocal abscesses/multiloculated empyema. Correlate with CBC and patient clinical status. Likely react hoda prominent mediastinal lymph nodes. 2. Residual loculated medial elongated air collection/pneumothorax status post thoracostomy with no m ediastinal shift. 3. There are 2 new left adrenal gland nodules, concerning for metastasis as these were not present on the exam of 10/20/2019 and there are few surrounding prominent lymph nodes. A Yellow level critical message alert has been initiated for Arpit Luque MD via the [facility] Results System on 02/29/2020 3:50 PM. This message alert has been sent to Arpit zimmerman MD via the preferences provided by the clinician for the receipt of Radiology Critical Findings. Message ID [id number].
== END | disposition home or self-care (01) ==
LOC: RADCTMAIN 14:57
PROVIDERS: ATTEND Internal Medicine Critical Care Medicine
DX: C34.90 Malignant neoplasm of unspecified part of unspecified bronchus or lung (principal); Z88.0 Allergy status to penicillin
CPT/HCPCS: 71260; Q9967

== ENCOUNTER 2020-03-01 12:06 | Day surgery (SDC) | payer OTHER ==
[2020-02-29 10:46] VITALS: BMI 19.9
[~2020-03-01 12:06] MED LIST changes: +ALBUTEROL NEB (CONC) 2.5 MG/0.5 ML INHALATION ONE; +HYDROmorphone 0.5 MG/0.5 ML SYRINGE IVP PRN; +LIDOCAINE 2% (PF) 20 MG/ML 5 ML VIAL INHALATION ONE; +LIDOCAINE VISCOUS 300 MG/15 ML CUP MUCOUS MEM ONE; -SCOPOLAMINE 1.5MG/72HR PATCH TRANSDERM ONE; +SODIUM CHLORIDE 0.9% 1,000 ML IV SCH
[2020-03-01] MEDS ORDERED: MIDAZOLAM 2 MG/2 ML VIAL ONE (13:06)
[2020-03-01] MEDS ORDERED: fentaNYL (PF) 50 MCG/ML 2 ML AMP ONE (13:06)
[2020-03-01] MEDS ORDERED: LIDOCAINE 1% INJ 10MG/ML (20 ML MDV) ONE (13:06)
[2020-03-01] MEDS ORDERED: PROPOFOL 10 MG/ML 20 ML VIAL IV ONE (13:06)
[2020-03-01] MEDS ORDERED: SUCCINYLCHOLINE CHLORIDE 100 MG/5 ML SYR IV ONE (13:06)
--- NOTE | 2020-03-01 14:03 | P.PCN ---
Date of Procedure: 03/01/20 Preoperative Diagnosis: Non-small cell lung cancer, left upper lobe resection, empyema involving the left lung, persistent atelectasis of the left lower lobe in addition to multiple pockets of pus involving the left hemithorax Postoperative Diagnosis: 1 Normal stump to the left upper lobe 2 complete obstruction of the left lower lobe bronchus, mainly due to extrinsic compression. Unable to pass a forceps with a brush into the left lower lobe. After infusing saline, a slight opening in the left lower lobe bronchus was established and a tiny portion of the left lower lobe bronchus was visualized. Endobronchial biopsies from the left lower lobe bronchus obtained. Bronchial lavage of the left lower lobe was obtained. Procedure(s) Performed: Flexible bronchoscopy, endobronchial biopsies, endobronchial brushings, bronchioloalveolar lavage Anesthesia: JEANNINEA Surgeon: Arpit Luque Estimated Blood Loss (ml): 0 Disposition: same day Operative Findings: This is a flexible bronchoscope that was done in the endoscopy suite. This procedure was done under general anesthesia. The patient was intubated and placed on a mechanical ventilator by [employer]ST. A [id number] testing was done preoperatively and was negative. After a successful intubation, the flexible bronchoscope was introduced through the orotracheal tube are present illness the lower airway. Examination of distal trachea was within normal limits. The tip of the ET tube was seen around 2 cm above the joan. Distal trachea, and joan were within normal limits. Examination of the right side including the right mainstem bronchus, right upper lobe bronchus, bronchus intermedius, right middle lobe bronchus and right lower lobe bronchus and examination of the radius segments of the right upper lobe and right middle lobe and right lower lobe was done. These airways were patent and within normal limits. Bronchus was then moved to the left side and at the level of the distal left mainstem bronchus stump to the left upper lobe bronchus was visualized. It looked healthy and there was no evidence of any leak or dehiscence of the wound. Then the bronchoscope was moved to the left lower lobe. The left lower lobe bronchus was completely obstructed. The tissue around the bronchus was quite swollen and I believe it was extrinsically compressed. Careful examination of the left lower bronchus was done and there was some irregularity in the bronchial mucosa. I think the mucosal irregularities or inflammatory in nature than malignant. Endobronchial biopsies were obtained. I attempted to pass a brush and the force of the left lower lobe bronchus and was not successful as the area was completely plugged. Then I was able to identify started opening on the lateral portion of the left lower lobe bronchus and I infused the area with saline each cause some dilatation opening some room into the left lower lobe bronchus. On the aquatic vision, a small portion of the left lower lobe bronchus was done. No endobronchial tumors were seen. I completed the procedure by performing a bronchial brushings of the left lower lobe bronchus and a lavage of the left lower lobe was done with a total of 80 mL of fluid was infused and 20 mL of bloody aspirate was obtained. I do not think this left lower lobe bronchus is amenable for stenting. The left lower lobe bronchus distally is obstructed and there is no room for stenting and there is no room for any recovery of airway patency. Based on this, I recommended antibiotic treatment and I recommended oncology allow for this patient. It is very much likely the patient's left lung or with evidence of from the left lower lobe will remain atelectatic and the patient will need further antibiotic treatment regarding the various abscesses/fluid collection seen on the CAT scan of the chest. We'll continue to follow.
[2020-03-01 14:06] VITALS: TEMP 97.6
[2020-03-01 14:19] VITALS: RESP 16
[2020-03-01 14:51] VITALS: BP 122/69; PULSE 93
== END 2020-03-01 15:02 | disposition home or self-care (01) ==
LOC: ORWHC2ENDO 12:06
PROVIDERS: ATTEND Internal Medicine Critical Care Medicine
DX: J98.11 Atelectasis (principal); C34.32 Malignant neoplasm of lower lobe, left bronchus or lung; I10 Essential (primary) hypertension; E78.5 Hyperlipidemia, unspecified; E11.9 Type 2 diabetes mellitus without complications; M79.7 Fibromyalgia; Z87.891 Personal history of nicotine dependence; Z11.59 Encounter for screening for other viral diseases; Z85.41 Personal history of malignant neoplasm of cervix uteri; Z90.710 Acquired absence of both cervix and uterus; Z90.2 Acquired absence of lung [part of]; F41.9 Anxiety disorder, unspecified; F32.9 Major depressive disorder, single episode, unspecified; F31.9 Bipolar disorder, unspecified; J44.9 Chronic obstructive pulmonary disease, unspecified; Z79.84 Long term (current) use of oral hypoglycemic drugs; Z83.3 Family history of diabetes mellitus; Z80.3 Family history of malignant neoplasm of breast; Z80.1 Family history of malignant neoplasm of trachea, bronchus and lung; Z79.1 Long term (current) use of non-steroidal anti-inflammatories (NSAID); Z79.899 Other long term (current) drug therapy; Z91.048 Other nonmedicinal substance allergy status
CPT/HCPCS: 94640; 88104; 88108; 88305; 87635; 31625; 31623; 31624; J2250; J1100; J2405; J2001 ×2; J3010; J0330; J2704

== ENCOUNTER → 2020-03-04 | Outpatient (CLI) | payer OTHER ==
[~2020-03-04] MED LIST changes: -ALBUTEROL NEB (CONC) 2.5 MG/0.5 ML INHALATION ONE; -DEXAMETHASONE SOD PHOSPHATE 10 MG/ML 1 ML VIAL IV ONE; -HYDROmorphone 0.5 MG/0.5 ML SYRINGE IVP PRN; -LACTATED RINGERS 1,000 ML IV SCH; -LIDOCAINE 1% (10MG/ML) FOR IV START INTRADERMA PRN; -LIDOCAINE 2% (PF) 20 MG/ML 5 ML VIAL INHALATION ONE; -LIDOCAINE VISCOUS 300 MG/15 ML CUP MUCOUS MEM ONE; -MIDAZOLAM 2 MG/2 ML VIAL IV PRN; -ONDANSETRON 4 MG/2 ML VIAL IVP ONE; +POTASSIUM CHLORIDE 20 MEQ in WATER FOR INJECTION 1 100ML.BAG IVPB ONE; +SODIUM CHLORIDE 0.9% 1,000 ML IV ONE; -SODIUM CHLORIDE 0.9% 1,000 ML IV SCH; +SODIUM CHLORIDE 0.9% 500 ML 500 ML in EMPTY BAG 1 BAG IV PRN
[2020-03-04 08:44] VITALS: BP 108/73; PULSE 97; RESP 16; TEMP 98
== END | disposition home or self-care (01) ==
LOC: PROCWHC3 08:20
PROVIDERS: ATTEND Internal Medicine Hematology & Oncology
DX: C34.12 Malignant neoplasm of upper lobe, left bronchus or lung (principal)
CPT/HCPCS: 96361; 96365; 96366; J3480

== ENCOUNTER 2020-03-07 17:02 | Inpatient (IN) | payer OTHER ==
[2020-03-07] MEDS ORDERED: IPRATROPIUM-ALBUTEROL 3 ML NEB INHALATION STA (18:43)
[2020-03-07] MEDS ORDERED: SODIUM CHLORIDE 0.9% 1,000 ML IV STA ×2 (18:43)
[2020-03-07] MEDS ORDERED: MORPHINE SULFATE 4 MG/ML SYRINGE IVP STA (19:55)
--- NOTE | 2020-03-07 19:57 | ED ---
SOB HPI <Deyvi Bell - Last Filed: 03/07/20 21:00> - General Source: patient, RN notes reviewed, old records reviewed Mode of arrival: ambulatory Limitations: no limitations <Crystal Linda - Last Filed: 03/07/20 21:40> - General Chief Complaint: Shortness of Breath Stated Complaint: lung cancer/SOB Time Seen by Provider: 03/07/20 18:22 - History of Present Illness Initial Comments: Is a 55-year-old female with a known history of lung cancer. She had a left upper lobectomy and then subsequently developed an empyema. She is currently receiving IV antibiotics out patiently through PICC line. She presents today with worsening shortness of breath and dyspnea on exertion as well as fluid in the left chest wall were previous empyema was and fluctuance to the posterior back. Patient states that no significant drainage from her incision site. She is currently receiving IV Rocephin and by mouth Flagyl from her empyema. (Crystal Linda) - Related Data Home Medications Medication Instructions Recorded Confirmed DULoxetine HCL [Cymbalta] 60 mg PO DAILY 06/04/16 03/04/20 metFORMIN HCL 500 mg PO BID 12/28/19 03/04/20 Albuterol Inhaler [Ventolin Hfa 2 puff INHALATION RT-QID PRN 01/29/20 03/04/20 Inhaler] Bisoprolol Fumarate [Zebeta] 10 mg PO DAILY 01/29/20 03/04/20 Pantoprazole Sodium 40 mg PO AC-BRKFST 01/29/20 03/04/20 Hydroxyzine Pamoate (Unknown) 1 tab PO HS 02/29/20 03/04/20 Ibuprofen [Motrin] 600 mg PO Q8HR PRN 02/29/20 03/04/20 Previous Rx's Medication Instructions Recorded Magnesium Oxide [Mag-Ox] 400 mg PO BID #0 tab 01/29/20 cefTRIAXone [Rocephin] 2,000 mg IVP Q24HR #42 vial 02/12/20 metroNIDAZOLE [Flagyl] 500 mg PO Q8HR #90 tab 02/12/20 Acetaminophen Tab [Tylenol] 1,000 mg PO Q6HR PRN tab 02/15/20 Ascorbic Acid [Vitamin C] 500 mg PO DAILY tab 02/15/20 Furosemide [Lasix] 20 mg PO DAILY #30 tab 02/15/20 Valsartan [Diovan] 160 mg PO DAILY #30 tab 02/15/20 amLODIPine [Norvasc] 10 mg PO DAILY #30 tab 02/15/20 hydrALAZINE HCL [Apresoline] 50 mg PO QID #120 tab 02/15/20 Allergies Allergy/AdvReac Type Severity Reaction Status Date / Time mold Allergy Unknown Dyspnea, Verified 03/07/20 17:28 Rash, Swelling Penicillins Allergy Unknown Verified 03/07/20 17:28 Childhood Review of Systems ROS Other: All systems not noted in ROS Statement are negative. <Deyvi Bell - Last Filed: 03/07/20 21:00> ROS Other: All systems not noted in ROS Statement are negative. <Crystal Linda - Last Filed: 03/07/20 21:40> ROS Statement: Those systems with pertinent positive or pertinent negative responses have been documented in the HPI. Past Medical History Past Medical History: Atrial Fibrillation, Cancer, COPD, Diabetes Mellitus, Fibromyalgia, Hyperlipidemia, Hypertension Additional Past Medical History / Comment(s): Hx suspected A Fib. Hx of Cervical Cancer. Lung Cancer diagnosed 10/2019. SOB at times, hemoptysis occ. Wound healing Lt upper back. PICC line for daily IV AB Rx at Dr Dc. History of Any Multi-Drug Resistant Organisms: None Reported Past Surgical History: Hysterectomy Additional Past Surgical History / Comment(s): VAGINAL HYSTERECTOMY. Upper left lobectomy 12/2019; 02/03/20 Lt Thoracotomy, Lung decortication, Pectoralis major pedicle flap transposition. PICC line 02/15/20. Past Anesthesia/Blood Transfusion Reactions: No Reported Reaction, Family History of Problems w/ Anesthesia, Motion Sickness Additional Past Anesthesia/Blood Transfusion Reaction / Comment(s): Father had significant blood pressure dropping years ago. Past Psychological History: Anxiety, Bipolar, Depression Smoking Status: Former smoker Past Alcohol Use History: None Reported Past Drug Use History: None Reported - Past Family History Mother Family Medical History: Cancer, Diabetes Mellitus Additional Family Medical History / Comment(s): BREAST CANCER Father Family Medical History: Cancer Additional Family Medical History / Comment(s): LUNG CANCER <Crystal Linda - Last Filed: 03/07/20 21:40> General Exam Limitations: no limitations General appearance: alert, in no apparent distress Head exam: Present: atraumatic, normocephalic, normal inspection Eye exam: Present: normal appearance, PERRL, EOMI. Absent: scleral icterus, conjunctival injection, periorbital swelling ENT exam: Present: normal exam, mucous membranes moist Neck exam: Present: normal inspection. Absent: tenderness, meningismus, lymphadenopathy Respiratory exam: Present: other (Has a scar over the left posterior back, with fluctuance noted to the posterior scapular region. The report that the swelling is new. A significantly diminished left lung sounds.). Absent: normal lung sounds bilaterally, respiratory distress, wheezes, rales, rhonchi, stridor Cardiovascular Exam: Present: normal rhythm, normal heart sounds. Absent: regular rate, systolic murmur, diastolic murmur, rubs, gallop, clicks GI/Abdominal exam: Present: soft, normal bowel sounds. Absent: distended, tenderness, guarding, rebound, rigid Extremities exam: Present: normal inspection, full ROM, normal capillary refill. Absent: tenderness, pedal edema, joint swelling, calf tenderness Back exam: Present: normal inspection Neurological exam: Present: alert, oriented X3, CN II-XII intact Psychiatric exam: Present: normal affect, normal mood Skin exam: Present: warm, dry, intact, normal color. Absent: rash <Crystal Linda - Last Filed: 03/07/20 21:40> - General Exam Comments Initial Comments: 55-year-old female. Alert and oriented 3. Patient appears and no acute distress at this time. Patient does report to be short of breath with minimal exertion. (Crystal Linda) Course <Deyvi Bell - Last Filed: 03/07/20 21:00> Vital Signs 03/07/20 03/07/20 03/07/20 17:24 18:28 19:25 Temperature 98.4 F Pulse Rate 101 H 105 H 107 H Respiratory 22 22 24 Rate Blood Pressure 146/86 171/100 174/104 O2 Sat by Pulse 99 99 100 Oximetry 03/07/20 03/07/20 03/07/20 19:53 19:59 20:31 Temperature Pulse Rate 106 H 107 H 111 H Respiratory 22 Rate Blood Pressure 172/96 O2 Sat by Pulse 100 Oximetry - Reevaluation(s) Reevaluation #1: 03/07/20 21:00 Patient was earlier reexamined by myself, Dr. Bell. Patient has diminished lung sounds on the left. There is some rales on the right. Patient is resting comfortably in bed however was extremely short of breath with mild exertion. Case was a with Dr. Alvarez who is familiar with this patient and will admit. Case also discussed with Dr. Arredondo who is also familiar with this patient and will consult. He recommends IV antibiotics and consult with infectious disease as well as cardiothoracic surgery. He also request a single dose of Lasix. I do agree with the findings. This includes diagnostic interpretation and plan. (Deyvi Bell) Medical Decision Making - Lab Data Result diagrams: 03/07/20 19:15 03/07/20 19:15 <Deyvi Bell - Last Filed: 03/07/20 21:00> - Lab Data Result diagrams: 03/07/20 19:15 03/07/20 19:15 - Radiology Data Radiology results: report reviewed <Crystal Linda - Last Filed: 03/07/20 21:40> - Medical Decision Making Patient is a 35-year-old female with history of lung cancer and subsequent empyema posts lobectomy by Dr. Wilkins. She feels a Dr. Luque as well as Dr. Yost and Dr. Silverio. Patient at this time shows continued left-sided hydrothorax. She has evidence of fluctuance over her left posterior back. Patient's labwor k was reviewed evidence of white blood cell count of 19,000. We were able to obtain blood cultures. Patient's previous empyema grew Acetinomycyes and Patient is maintained on Rocephin and Flagyl per Dr. mckeon. This will be continued at this time. Patient will be admitted with consult to Dr. Wilkins and Dr. Luque. Patient is stable on supplemental oxygen at this time. (Crystal Linad) - Lab Data Lab Results 03/07/20 03/07/20 03/07/20 Range/Units 19:15 19:15 19:15 WBC 19.9 H (3.8-10.6) k/uL RBC 3.30 L (3.80-5.40) m/uL Hgb 8.8 L (11.4-16.0) gm/dL Hct 28.6 L (34.0-46.0) % MCV 86.6 (80.0-100.0) fL MCH 26.6 (25.0-35.0) pg MCHC 30.7 L (31.0-37.0) g/dL RDW 17.2 H (11.5-15.5) % Plt Count 658 H (150-450) k/uL Neutrophils % 88 % Lymphocytes % 6 % Monocytes % 3 % Eosinophils % 1 % Basophils % 0 % Neutrophils # 17.5 H (1.3-7.7) k/uL Lymphocytes # 1.1 (1.0-4.8) k/uL Monocytes # 0.7 (0-1.0) k/uL Eosinophils # 0.2 (0-0.7) k/uL Basophils # 0.1 (0-0.2) k/uL Anisocytosis Slight PT 10.0 (9.0-12.0) sec INR 1.0 (<1.2) APTT 25.6 (22.0-30.0) sec D-Dimer 2.30 H (<0.60) mg/L FEU Sodium 133 L (137-145) mmol/L Potassium 3.6 (3.5-5.1) mmol/L Chloride 94 L (98-107) mmol/L Carbon Dioxide 30 (22-30) mmol/L Anion Gap 9 mmol/L BUN 7 (7-17) mg/dL Creatinine 0.58 (0.52-1.04) mg/dL Est GFR (CKD-EPI)AfAm >90 (>60 ml/min/1.73 sqM) Est GFR (CKD-EPI)NonAf >90 (>60 ml/min/1.73 sqM) Glucose 131 H (74-99) mg/dL Plasma Lactic Acid Orestes (0.7-2.0) mmol/L Calcium 8.4 (8.4-10.2) mg/dL Magnesium 1.5 L (1.6-2.3) mg/dL Total Bilirubin 0.3 (0.2-1.3) mg/dL AST 14 (14-36) U/L ALT <6 (4-34) U/L Alkaline Phosphatase 101 (38-126) U/L Troponin I (0.000-0.034) ng/mL NT-Pro-B Natriuret Pep pg/mL Total Protein 5.8 L (6.3-8.2) g/dL Albumin 2.9 L (3.5-5.0) g/dL Urine Color Urine Appearance (Clear) Urine pH (5.0-8.0) Ur Specific [place] (1.001-1.035) Urine Protein (Negative) Urine Glucose (UA) (Negative) Urine Ketones (Negative) Urine Blood (Negative) Urine Nitrite (Negative) Urine Bilirubin (Negative) Urine Urobilinogen (<2.0) mg/dL Ur Leukocyte Esterase (Negative) Urine RBC (0-5) /hpf Urine WBC (0-5) /hpf Ur Squamous Epith Cells (0-4) /hpf Amorphous Sediment (None) /hpf 03/07/20 03/07/20 03/07/20 Range/Units 19:15 19:15 19:15 WBC (3.8-10.6) k/uL RBC (3.80-5.40) m/uL Hgb (11.4-16.0) gm/dL Hct (34.0-46.0) % MCV (80.0-100.0) fL MCH (25.0-35.0) pg MCHC (31.0-37.0) g/dL RDW (11.5-15.5) % Plt Count (150-450) k/uL Neutrophils % % Lymphocytes % % Monocytes % % Eosinophils % % Basophils % % Neutrophils # (1.3-7.7) k/uL Lymphocytes # (1.0-4.8) k/uL Monocytes # (0-1.0) k/uL Eosinophils # (0-0.7) k/uL Basophils # (0-0.2) k/uL Anisocytosis PT (9.0-12.0) sec INR (<1.2) APTT (22.0-30.0) sec D-Dimer (<0.60) mg/L FEU Sodium (137-145) mmol/L Potassium (3.5-5.1) mmol/L Chloride (98-107) mmol/L Carbon Dioxide (22-30) mmol/L Anion Gap mmol/L BUN (7-17) mg/dL Creatinine (0.52-1.04) mg/dL Est GFR (CKD-EPI)AfAm (>60 ml/min/1.73 sqM) Est GFR (CKD-EPI)NonAf (>60 ml/min/1.73 sqM) Glucose (74-99) mg/dL Plasma Lactic Acid Orestes 1.6 (0.7-2.0) mmol/L Calcium (8.4-10.2) mg/dL Magnesium (1.6-2.3) mg/dL Total Bilirubin (0.2-1.3) mg/dL AST (14-36) U/L ALT (4-34) U/L Alkaline Phosphatase (38-126) U/L Troponin I <0.012 (0.000-0.034) ng/mL NT-Pro-B Natriuret Pep pg/mL Total Protein (6.3-8.2) g/dL Albumin (3.5-5.0) g/dL Urine Color Yellow Urine Appearance Cloudy H (Clear) Urine pH 6.5 (5.0-8.0) Ur Specific [place] 1.010 (1.001-1.035) Urine Protein Trace H (Negative) Urine Glucose (UA) Negative (Negative) Urine Ketones Trace H (Negative) Urine Blood Negative (Negative) Urine Nitrite Negative (Negative) Urine Bilirubin Negative (Negative) Urine Urobilinogen <2.0 (<2.0) mg/dL Ur Leukocyte Esterase Large H (Negative) Urine RBC 11 H (0-5) /hpf Urine WBC 29 H (0-5) /hpf Ur Squamous Epith Cells 27 H (0-4) /hpf Amorphous Sediment Rare H (None) /hpf 05/25/20 Range/Units 20:49 WBC (3.8-10.6) k/uL RBC (3.80-5.40) m/uL Hgb (11.4-16.0) gm/dL Hct (34.0-46.0) % MCV (80.0-100.0) fL MCH (25.0-35.0) pg MCHC (31.0-37.0) g/dL RDW (11.5-15.5) % Plt Count (150-450) k/uL Neutrophils % % Lymphocytes % % Monocytes % % Eosinophils % % Basophils % % Neutrophils # (1.3-7.7) k/uL Lymphocytes # (1.0-4.8) k/uL Monocytes # (0-1.0) k/uL Eosinophils # (0-0.7) k/uL Basophils # (0-0.2) k/uL Anisocytosis PT (9.0-12.0) sec INR (<1.2) APTT (22.0-30.0) sec D-Dimer (<0.60) mg/L FEU Sodium (137-145) mmol/L Potassium (3.5-5.1) mmol/L Chloride (98-107) mmol/L Carbon Dioxide (22-30) mmol/L Anion Gap mmol/L BUN (7-17) mg/dL Creatinine (0.52-1.04) mg/dL Est GFR (CKD-EPI)AfAm (>60 ml/min/1.73 sqM) Est GFR (CKD-EPI)NonAf (>60 ml/min/1.73 sqM) Glucose (74-99) mg/dL Plasma Lactic Acid Orestes (0.7-2.0) mmol/L Calcium (8.4-10.2) mg/dL Magnesium (1.6-2.3) mg/dL Total Bilirubin (0.2-1.3) mg/dL AST (14-36) U/L ALT (4-34) U/L Alkaline Phosphatase (38-126) U/L Troponin I (0.000-0.034) ng/mL NT-Pro-B Natriuret Pep 1260 pg/mL Total Protein (6.3-8.2) g/dL Albumin (3.5-5.0) g/dL Urine Color Urine Appearance (Clear) Urine pH (5.0-8.0) Ur Specific [place] (1.001-1.035) Urine Protein (Negative) Urine Glucose (UA) (Negative) Urine Ketones (Negative) Urine Blood (Negative) Urine Nitrite (Negative) Urine Bilirubin (Negative) Urine Urobilinogen (<2.0) mg/dL Ur Leukocyte Esterase (Negative) Urine RBC (0-5) /hpf Urine WBC (0-5) /hpf Ur Squamous Epith Cells (0-4) /hpf Amorphous Sediment (None) /hpf 03/07/20 19:56 EKG shows normal sinus rhythm ensure infarct age undetermined. Abnormal EKG. Ventricular rate 99 bpm. [place] interval is 132 ms. QRS duration 70 ms. QT QTc is 374/479 ms. (Crystal Linda) - Radiology Data Chest x-ray shows left sided tension hydrothorax slightly worse than previous exam with some midshaft of the heart and mediastinum to the right. (Crystal Linda) Disposition <Deyvi Bell - Last Filed: 03/07/20 21:00> Is patient prescribed a controlled substance at d/c from ED?: No Time of Disposition: 21:40 <Crystal Linda - Last Filed: 03/07/20 21:40> Clinical Impression: S/P lobectomy of lung, Pleural effusion, Sepsis, UTI (urinary tract infection) Disposition: ADMITTED IP TO THIS HOSP Referrals: Nathan Leroy MD [Primary Care Provider] - 1-2 days
[2020-03-07 20:00] LABS: Anisocytosis Slight; Basophils # (A) 0.1 k/uL (0-0.2); Basophils % (A) 0 %; Eosinophils # (A) 0.2 k/uL (0-0.7); Eosinophils % (A) 1 %; HCT 28.6 % (34.0-46.0); HGB 8.8 gm/dL (11.4-16.0); Lymphocytes # (A) 1.1 k/uL (1.0-4.8); Lymphocytes % (A) 6 %; MCH 26.6 pg (25.0-35.0); MCHC 30.7 g/dL (31.0-37.0); MCV 86.6 fL (80.0-100.0); Mean Platelet Volume 7.2; Monocytes # (A) 0.7 k/uL (0-1.0); Monocytes % (A) 3 %; Neutrophils # (A) 17.5 k/uL (1.3-7.7); Neutrophils % (A) 88 %; Platelet Count 658 k/uL (150-450); RDW 17.2 % (11.5-15.5); WBC 19.9 k/uL (3.8-10.6)
[2020-03-07 20:05] LABS: Partial Thromboplastin Time 25.6 sec (22.0-30.0)
[2020-03-07 20:08] LABS: Amorphous Sediment,Urine Rare /hpf; Appearance,Urine Cloudy (Clear); Bilirubin,Urine Negative (Negative); Blood,Urine Negative (Negative); Color,Urine Yellow; Glucose,Urine (UA) Negative (Negative); Ketones,Urine Trace (Negative); Leukocyte Esterase,Urine Large (Negative); Nitrite,Urine Negative (Negative); PH, Urine 6.5 (5.0-8.0); Protein,Urine Trace (Negative); RBC,Urine 11 /hpf (0-5); Squamous Epithelial Cell,Urine 27 /hpf (0-4); Urobilinogen,Urine <2.0 mg/dL (<2.0); WBC,Urine 29 /hpf (0-5)
--- NOTE | 2020-03-07 20:15 | XR ---
EXAMINATION TYPE: XR chest 2V DATE OF EXAM: 03/07/2020 COMPARISON: 02/25/2020 HISTORY: Left thoracotomy. Postoperative exam. TECHNIQUE: FINDINGS: There is left-sided central venous catheter with the tip in the superior vena cava. There i s almost complete opacification left hemithorax. There is small fluid level left lung apex. There is a minimal infiltrate in the lateral right lower lobe. Heart and trachea are shifted slightly to the r ight side compared to previous exam. IMPRESSION: Left-sided tension hydrothorax slightly worse than previous exam with some mild shift of the heart and mediastinum to the right side.
[2020-03-07 20:23] LABS: ALT <6 U/L (4-34); AST 14 U/L (14-36); African American GFR (CKD) >90 (>60 ml/min/1.73 sqM); Albumin 2.9 g/dL (3.5-5.0); Alkaline Phosphatase 101 U/L (38-126); Anion Gap 9 mmol/L; Blood Urea Nitrogen 7 mg/dL (7-17); Calcium 8.4 mg/dL (8.4-10.2); Carbon Dioxide 30 mmol/L (22-30); Chloride 94 mmol/L (98-107); D-Dimer 2.3 mg/L FEU (<0.60); Glucose 131 mg/dL (74-99); Magnesium 1.5 mg/dL (1.6-2.3); Non-African American GFR(CKD) >90 (>60 ml/min/1.73 sqM); Potassium 3.6 mmol/L (3.5-5.1); Sodium 133 mmol/L (137-145); Total Bilirubin 0.3 mg/dL (0.2-1.3); Total Protein 5.8 g/dL (6.3-8.2)
[2020-03-07] MEDS ORDERED: NALOXONE 0.4 MG/ML 1 ML VIAL IV PRN (21:41)
[2020-03-07] MEDS ORDERED: ACETAMINOPHEN TAB 325 MG TAB PO PRN (21:41)
[2020-03-07] MEDS ORDERED: FUROSEMIDE 10 MG/ML 4 ML VIAL IV STA (21:44)
[2020-03-07] MEDS: MORPHINE SULFATE 4 MG/ML SYRINGE IV PRN (23:03)
[2020-03-07] MEDS: hydrALAZINE HCL 50 MG TAB PO SCH (23:04)
[2020-03-07] MEDS: ONDANSETRON 4 MG/2 ML VIAL IVP PRN (23:04)
[2020-03-08] MEDS: ACETAMINOPHEN TAB 500 MG TAB PO PRN ×4 (00:52→23:26)
[2020-03-08] MEDS: metroNIDAZOLE 500 MG TAB PO SCH ×4 (00:52→23:25)
[2020-03-08] MEDS: MORPHINE SULFATE 4 MG/ML SYRINGE IV PRN ×3 (04:28→20:03)
[2020-03-08] MEDS: ALBUTEROL NEBULIZED 2.5 MG/3 ML INHALATION PRN ×5 (04:45→20:01)
[2020-03-08] MEDS: DULoxetine HCL 60 MG CAPSULE.DR PO SCH (08:23)
[2020-03-08] MEDS: hydrALAZINE HCL 50 MG TAB PO SCH ×4 (08:23→20:07)
[2020-03-08] MEDS: metFORMIN 500 MG TAB PO SCH ×2 (08:23→21:51)
[2020-03-08] MEDS: amLODIPine 10 MG TAB PO SCH (08:23)
[2020-03-08] MEDS: BISOPROLOL 5 MG TAB PO SCH (08:24)
[2020-03-08] MEDS: PANTOPRAZOLE 40 MG TABLET PO SCH (08:24)
[2020-03-08] MEDS: VALSARTAN 160 MG TAB PO SCH (08:24)
[2020-03-08] MEDS: FUROSEMIDE 20 MG TAB PO SCH (08:24)
[2020-03-08] MEDS: ASCORBIC ACID 500 MG TAB PO SCH (08:24)
[2020-03-08] MEDS ORDERED: NON FORMULARY DRUG (Ceftriaxone 2,000 MG) IVP SCH (09:00)
[2020-03-08] MEDS ORDERED: Magnesium Replacement Protocol 1 EACH MISC MISCELLANE PRN (09:55)
[2020-03-08 10:39] LABS: Anisocytosis Slight; Basophils # (A) 0.1 k/uL (0-0.2); Basophils % (A) 0 %; Eosinophils # (A) 0.3 k/uL (0-0.7); Eosinophils % (A) 1 %; HGB 9.2 gm/dL (11.4-16.0); Hypochromasia Moderate; Lymphocytes # (A) 0.8 k/uL (1.0-4.8); Lymphocytes % (A) 4 %; MCH 28.1 pg (25.0-35.0); MCHC 31.6 g/dL (31.0-37.0); Mean Platelet Volume 6.9; Monocytes # (A) 0.6 k/uL (0-1.0); Monocytes % (A) 2 %; Neutrophils # (A) 21.8 k/uL (1.3-7.7); Neutrophils % (A) 91 %; Platelet Count 570 k/uL (150-450); RBC 3.26 m/uL (3.80-5.40); RDW 16.5 % (11.5-15.5); WBC 23.8 k/uL (3.8-10.6)
[2020-03-08 10:48] LABS: African American GFR (CKD) >90 (>60 ml/min/1.73 sqM); Anion Gap 10 mmol/L; Blood Urea Nitrogen 6 mg/dL (7-17); Calcium 8.5 mg/dL (8.4-10.2); Carbon Dioxide 29 mmol/L (22-30); Chloride 96 mmol/L (98-107); Glucose 140 mg/dL (74-99); Non-African American GFR(CKD) >90 (>60 ml/min/1.73 sqM); Potassium 3.3 mmol/L (3.5-5.1); Sodium 135 mmol/L (137-145)
--- NOTE | 2020-03-08 11:48 | P.CNPUL ---
History of Present Illness Consult date: 03/08/20 Requesting physician: Nathan Leroy Reason for consult: dyspnea, abnormal CXR/CT Chief complaint: Shortness of breath, left-sided chest pain History of present illness: This is a very pleasant 55-year-old female patient who follows with Dr. Leroy as her primary care provider. She has a history of hypertension, hyperlipidemia, diabetes mellitus, depression. She has a history of chronic t obacco dependence of 30 years at 1 pack per day. She had been found to have non-small cell lung cancer, status post left upper lobe resection. Following that she was readmitted for empyema involving the left lung. 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 She has been maintained on oral Flagyl and Rocephin via PICC line in the outpatient setting. She had undergone follow- up bronchoscopy and biopsy by Dr. Luque on 03/01/2020. She was found to have a normal stump to the left upper lobe. There was near complete obstruction of the left lower lobe bronchus, mainly due to extrinsic compression. He was able to pass the forceps into the left lower lobe and endobronchial brushings, washing and biopsies were taken. Results of these were negative for malignancy. she presented here to the emergency room yesterday with complaints of worsening shortness of breath and recurrent left chest wall pain similar to her previous admission for empyema. There is a dressing to the left chest still which is dry and intact. She denied any recent drainage. No fever or chills. Chest x-ray shows left-sided tension hydrothorax slightly worse from previous exam on 02/25/2020. There is a mild shift of the heart and mediastinum to the right. white count 23.8. Hemoglobin 9.2. Sodium 135. Potassium 3.3. D-dimer 2.30. Creatinine 0.55. Urinalysis with large leukocytes and high WBCs. Coronavirus screen negative. She is seen today in consultation in the emergency room. She is currently awake and alert in no acute distress. She is still having ongoing discomfort on her left chest. Still short of breath with minimal exertion. He is maintaining O2 saturations in the 90s on 2 L/m per nasal cannula. She has been afebrile. Hemodynamically stable. She is continued on ceftriaxone and oral Flagyl. Review of Systems REVIEW OF SYSTEMS: CONSTITUTIONAL: Denies any recent significant weight loss or weight gain. EYES: Denies change in vision. EARS, NOSE, MOUTH, THROAT: Denies headaches, denies sore throat. CARDIOVASCULAR: Denies chest pain, palpitations or syncopal episodes. RESPIRATORY: positive for shortness of breath, cough, congestion no hemoptysis. GASTROINTESTINAL: Denies change in appetite, denies abdominal pain GENITOURINARY: Denies hematuria, denies infections. MUSKULOSKELETAL: Positive for left-sided chest wall pain, denies swelling. INTEGUMENTARY: Denies rash, denies eczema. NEUROLOGICAL: Denies recent memory loss, no recent seizure activity. PSYCHIATRIC: Denies anxiety, denies depression. HEMATOLOGIC/LYMPHATIC: Denies anemia, denies enlarged lymph nodes. Past Medical History Past Medical History: Atrial Fibrillation, Cancer, COPD, Diabetes Mellitus, Fibromyalgia, Hyperlipidemia, Hypertension Additional Past Medical History / Comment(s): Hx suspected A Fib. Hx of Cervical Cancer. Lung Cancer diagnosed 10/2019. SOB at times, hemoptysis occ. Wound healing Lt upper back. PICC line for daily IV AB Rx at Dr Pickenss. History of Any Multi-Drug Resistant Organisms: None Reported Past Surgical History: Hysterectomy Additional Past Surgical History / Comment(s): VAGINAL HYSTERECTOMY. Upper left lobectomy 12/2019; 02/03/20 Lt Thoracotomy, Lung decortication, Pectoralis major pedicle flap transposition. PICC line 02/15/20. Past Anesthesia/Blood Transfusion Reactions: No Reported Reaction, Family History of Problems w/ Anesthesia, Motion Sickness Additional Past Anesthesia/Blood Transfusion Reaction / Comment(s): Father had significant blood pressure dropping years ago. Past Psychological History: Anxiety, Bipolar, Depression Smoking Status: Former smoker Past Alcohol Use History: None Reported Past Drug Use History: None Reported - Past Family History Mother Family Medical History: Cancer, Diabetes Mellitus Additional Family Medical History / Comment(s): BREAST CANCER Father Family Medical History: Cancer Additional Family Medical History / Comment(s): LUNG CANCER Medications and Allergies Home Medications Medication Instructions Recorded Confirmed Type DULoxetine HCL [Cymbalta] 60 mg PO DAILY 06/04/16 03/04/20 History metFORMIN HCL 500 mg PO BID 12/28/19 03/04/20 History Albuterol Inhaler [Ventolin Hfa 2 puff INHALATION RT-QID PRN 01/29/20 03/04/20 History Inhaler] Bisoprolol Fumarate [Zebeta] 10 mg PO DAILY 01/29/20 03/04/20 History Magnesium Oxide [Mag-Ox] 400 mg PO BID #0 tab 01/29/20 03/04/20 Rx Pantoprazole Sodium 40 mg PO AC-BRKFST 01/29/20 03/04/20 History cefTRIAXone [Rocephin] 2,000 mg IVP Q24HR #42 vial 02/12/20 03/04/20 Rx metroNIDAZOLE [Flagyl] 500 mg PO Q8HR #90 tab 02/12/20 03/04/20 Rx Acetaminophen Tab [Tylenol] 1,000 mg PO Q6HR PRN tab 02/15/20 03/04/20 Rx Ascorbic Acid [Vitamin C] 500 mg PO DAILY tab 02/15/20 03/04/20 Rx Furosemide [Lasix] 20 mg PO DAILY #30 tab 02/15/20 03/04/20 Rx Valsartan [Diovan] 160 mg PO DAILY #30 tab 02/15/20 03/04/20 Rx amLODIPine [Norvasc] 10 mg PO DAILY #30 tab 02/15/20 03/04/20 Rx hydrALAZINE HCL [Apresoline] 50 mg PO QID #120 tab 02/15/20 03/04/20 Rx Hydroxyzine Pamoate (Unknown) 1 tab PO HS 02/29/20 03/04/20 History Ibuprofen [Motrin] 600 mg PO Q8HR PRN 02/29/20 03/04/20 History Allergies Allergy/AdvReac Type Severity Reaction Status Date / Time mold Allergy Unknown Dyspnea, Verified 03/07/20 17:28 Rash, Swelling Penicillins Allergy Unknown Verified 03/07/20 17:28 Childhood Physical Exam Vitals: Vital Signs Temp Pulse Resp BP Pulse Ox 03/08/20 10:52 75 16 127/86 96 03/08/20 09:23 20 03/08/20 08:54 102 H 03/08/20 08:43 106 H 03/08/20 08:22 98.3 F 105 H 20 162/89 94 L 03/08/20 06:34 100 148/85 99 03/08/20 04:54 102 H 03/08/20 04:45 96 03/08/20 04:20 159/94 100 03/08/20 04:00 151/88 100 0520 03:40 151/88 99 0520 03:20 149/84 100 05 03:00 149/92 99 05 02:40 149/92 99 0520 02:30 140/86 99 05 02:20 140/86 100 05 02:10 140/86 100 03/08/20 02:00 147/89 99 03/08/20 01:50 147/89 100 05 01:40 147/89 99 03/08/20 01:30 161/88 100 05 01:20 161/88 100 03/08/20 01:10 161/88 100 03/08/20 01:00 151/88 03/08/20 00:50 151/88 100 03/08/20 00:47 103 H 17 151/88 100 05 00:40 146/82 05 00:30 148/92 05 00:10 148/92 0520 23:50 154/87 0520 23:40 154/87 0520 23:30 165/101 05//20 23:20 165/101 05/20 23:10 165/101 0520 23:00 98.9 F 99 20 164/101 95 05/20 22:50 163/115 05/25/20 22:30 115 H 05/20 22:20 105 H 98 05//20 22:10 171/108 99 0520 22:00 106 H 22 166/91 99 05/25/20 21:50 166/91 98 05/25/20 21:40 166/91 99 05/25/20 21:30 168/106 99 05/25/20 21:20 108 H 99 05//20 21:10 111 H 99 05/25/20 21:00 99 05/25/20 20:50 110 H 97 05/25/20 20:40 99 05/25/20 20:31 111 H 22 172/96 100 05/25/20 20:20 105 H 163/105 100 05/25/20 20:10 163/105 05/25/20 19:59 107 H 03/07/20 19:53 106 H 03/07/20 19:25 107 H 24 174/104 100 03/07/20 18:28 105 H 22 171/100 99 03/07/20 17:24 98.4 F 101 H 22 146/86 99 Intake and Output 03/07/20 03/08/20 03/08/20 22:59 06:59 14:59 Other: Weight 59.421 kg GENERAL EXAM: Alert, very pleasant 55-year-old female patient, on 2 L nasal cannula, fairly comfortable in no apparent distress. HEAD: Normocephalic. EYES: Normal reaction of pupils, equal size. NOSE: Clear with pink turbinates. THROAT: No erythema or exudates. NECK: No masses, no JVD. CHEST: No chest wall deformity. Dressing to the left chest drain intact LUNGS: Equal air entry with crackles and dullness of the left chest. CVS: S1 and S2 normal with no audible murmur, regular rhythm. ABDOMEN: No hepatosplenomegaly, normal bowel sounds, no guarding or rigidity. SPINE: No scoliosis or deformity SKIN: No rashes CENTRAL NERVOUS SYSTEM: No focal deficits, tone is normal in all 4 extremities. EXTREMITIES: There is no peripheral edema. No clubbing, no cyanosis. Peripheral pulses are intact. Results - Laboratory Findings CBC and BMP: 03/08/20 10:19 03/08/20 10:19 PT/INR, D-dimer PT 10.0 sec (9.0-12.0) 03/07/20 19:15 INR 1.0 (<1.2) 03/07/20 19:15 D-Dimer 2.30 mg/L FEU (<0.60) H 03/07/20 19:15 Abnormal lab findings: Abnormal Labs 03/07/20 03/07/20 03/07/20 19:15 19:15 19:15 WBC 19.9 H RBC 3.30 L Hgb 8.8 L Hct 28.6 L MCHC 30.7 L RDW 17.2 H Plt Count 658 H Neutrophils # 17.5 H Lymphocytes # D-Dimer 2.30 H Sodium 133 L Potassium Chloride 94 L BUN Glucose 131 H Magnesium 1.5 L Total Protein 5.8 L Albumin 2.9 L Urine Appearance Urine Protein Urine Ketones Ur Leukocyte Esterase Urine RBC Urine WBC Ur Squamous Epith Cells Amorphous Sediment 03/07/20 03/08/20 03/08/20 19:15 10:19 10:19 WBC 23.8 H RBC 3.26 L Hgb 9.2 L Hct 29.0 L MCHC RDW 16.5 H Plt Count 570 H Neutrophils # 21.8 H Lymphocytes # 0.8 L D-Dimer Sodium 135 L Potassium 3.3 L Chloride 96 L BUN 6 L Glucose 140 H Magnesium Total Protein Albumin Urine Appearance Cloudy H Urine Protein Trace H Urine Ketones Trace H Ur Leukocyte Esterase Large H Urine RBC 11 H Urine WBC 29 H Ur Squamous Epith Cells 27 H Amorphous Sediment Rare H - Diagnostic Findings Chest x-ray: image reviewed Assessment and Plan Assessment: 1 Acute hypoxemic respiratory failure secondary toleft sided tension hydrothorax with some mild shift of the heart and mediastinum to the right 2 History of non-small cell lung cancer, 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 Maintained on oral Flagyl and IV ceftriaxone in the outpatient setting 4 Persistent atelectasis of the left lower lobe in addition to multiple pockets of pus within the left hemithorax. Status post follow-up bronchoscopy on 03/01/2020. Found to have a normal stump to left upper lobe. Complete obstruction of the left lower lobe bronchus immediately due to extrinsic compression. Follow-up biopsies negative for malignancy. 5 History of [id number] smoking 6 History of hypertension 7 Hyperlipidemia 8 Diabetes mellitus, type II 9 Depression, history of [place]: The patient was seen and evaluated by Dr. Rubio Chest x-ray and labs reviewed Continued on ceftriaxone and Flagyl Continue bronchodilators Consult cardiothoracic surgery Consult infectious disease Consult medical oncology We will continue to follow and make further recommendations based on her clinical status I, the cosigning physician, performed a history & physical examination of the patient. Lungs sounds with crackles and dullness throughout the left lung. Maintaining good O2 saturations in the 90s on 2 L/m per nasal cannula. I discussed the assessment and plan of care with my nurse practitioner, Jazmín Arndt. I attest to the above consultation as dictated by her. Time with Patient: Greater than 30
[2020-03-08] MEDS: MAGNESIUM SULFATE-D5W PMX 1 GM in DEXTROSE/WATER 1 100ML.BAG IVPB SCH ×2 (13:18→14:42)
[2020-03-08 14:58] VITALS: BMI 19.9
[2020-03-08] MEDS ORDERED: Potassium Replacement Protocol 1 EACH MISC MISCELLANE PRN (18:22)
--- NOTE | 2020-03-08 18:22 | P.GSCN ---
History of Present Illness Consult date: 03/08/20 Reason for Consult: Known to the cardiothoracic surgery service, , status post left upper lobectomy and history of empyema. Requesting physician: Crystal Linda History of present illness: This is a 55-year-old female patient who follows on an outpatient basis with Dr. Nathan Leroy. She is a past medical history significant for poorly differentiated squamous cell carcinoma, status post left upper lobectomy, empy laith left chest with culture showing actinomyces odontolyticusstatus, status post left thoracotomy with total lung decortication, pectoralis major radical flap transposition into the left pleural space, hypertension, hyperlipidemia, chronic tobacco, type 2 diabetes mellitus, cervical cancer status post hysterectomy, anxiety and bipolar disorder. She presented to the emergency department here at [facility] yesterday with complaints of increasing shortness of breath and some recurrent left chest wall pain. She also reports she was coughing up blood. Denies any recent fever, chills, nausea, vomiting, or diarrhea. Due to her recent cultures positive for actinomyces odontolyticus she has been receiving outpatient antibiotic treatments maintained on IV Rocephin and oral Flagyl per management by infectious disease. On 03/01/2020 she underwent a bronchoscopy completed by Dr. Luque and was found to have a normal stump to the left upper chest and near complete obstruction of the left lower lobe bronchus, mainly due to extrinsic compression. The chest x-ray completed on presentation showed a left sided tension hydrothorax with some mild shift of the heart and mediastinum to the right. 12-lead EKG demonstrated normal sinus rhythm heart rate 99 BPM. Due to the patient's recent left upper lobectomy, and thoracotomy with decortication a consult was placed to Dr. Lars Alexandre from cardiothoracic surgery for further evaluation and treatment recommendations. Review of Systems 14 point review of systems was completed and was negative except as mentioned in the HPI. Past Medical History Past Medical History: Atrial Fibrillation, Cancer, COPD, Diabetes Mellitus, Fibromyalgia, Hyperlipidemia, Hypertension Additional Past Medical History / Comment(s): Hx suspected A Fib. Hx of Cervical Cancer. Lung Cancer diagnosed 10/2019. SOB at times, hemoptysis occ. Wound healing Lt upper back. PICC line for daily IV AB Rx at Dr Dc. History of Any Multi-Drug Resistant Organisms: None Reported Past Surgical History: Hysterectomy Additional Past Surgical History / Comment(s): VAGINAL HYSTERECTOMY. Upper left lobectomy 12/2019; 02/03/20 Lt Thoracotomy, Lung decortication, Pectoralis major pedicle flap transposition. PICC line 02/15/20. Past Anesthesia/Blood Transfusion Reactions: No Reported Reaction, Family History of Problems w/ Anesthesia, Motion Sickness Additional Past Anesthesia/Blood Transfusion Reaction / Comm: Father had significant blood pressure dropping years ago. Past Psychological History: Anxiety, Bipolar, Depression Smoking Status: Former smoker Past Alcohol Use History: None Reported Additional Past Alcohol Use History / Comment(s): QUIT SMOKING OCT 2019, SMOKED 1 PPD, SMOKED FOR 40 YEARS. Past Drug Use History: None Reported - Past Family History Mother Family Medical History: Cancer, Diabetes Mellitus Additional Family Medical History / Comment(s): BREAST CANCER Father Family Medical History: Cancer Additional Family Medical History / Comment(s): LUNG CANCER Medications and Allergies Home Medications Medication Instructions Recorded Confirmed Type DULoxetine HCL [Cymbalta] 60 mg PO DAILY 06/04/16 03/04/20 History metFORMIN HCL 500 mg PO BID 12/28/19 03/04/20 History Albuterol Inhaler [Ventolin Hfa 2 puff INHALATION RT-QID PRN 01/29/20 03/04/20 History Inhaler] Bisoprolol Fumarate [Zebeta] 10 mg PO DAILY 01/29/20 03/04/20 History Magnesium Oxide [Mag-Ox] 400 mg PO BID #0 tab 01/29/20 03/04/20 Rx Pantoprazole Sodium 40 mg PO AC-BRKFST 01/29/20 03/04/20 History cefTRIAXone [Rocephin] 2,000 mg IVP Q24HR #42 vial 02/12/20 03/04/20 Rx metroNIDAZOLE [Flagyl] 500 mg PO Q8HR #90 tab 02/12/20 03/04/20 Rx Acetaminophen Tab [Tylenol] 1,000 mg PO Q6HR PRN tab 02/15/20 03/04/20 Rx Ascorbic Acid [Vitamin C] 500 mg PO DAILY tab 02/15/20 03/04/20 Rx Furosemide [Lasix] 20 mg PO DAILY #30 tab 02/15/20 03/04/20 Rx Valsartan [Diovan] 160 mg PO DAILY #30 tab 02/15/20 03/04/20 Rx amLODIPine [Norvasc] 10 mg PO DAILY #30 tab 02/15/20 03/04/20 Rx hydrALAZINE HCL [Apresoline] 50 mg PO QID #120 tab 02/15/20 03/04/20 Rx Hydroxyzine Pamoate (Unknown) 1 tab PO HS 02/29/20 03/04/20 History Ibuprofen [Motrin] 600 mg PO Q8HR PRN 02/29/20 03/04/20 History Allergies Allergy/AdvReac Type Severity Reaction Status Date / Time mold Allergy Unknown Dyspnea, Verified 03/07/20 17: Rash, Swelling Penicillins Allergy Unknown Verified 03/07/20 17:28 Childhood Surgical - Exam Vital Signs Temp Pulse Resp BP Pulse Ox 98.4 F 101 H 22 146/86 99 03/07/20 17:24 03/07/20 17:24 03/07/20 17:24 03/07/20 17:24 03/07/20 17:24 This is a pleasant 55-year-old female patient who is sitting up to her bedside chair on the medical surgical unit. She is awake, alert and oriented 3 and is in no acute distress. - General well developed, well nourished, no distress, no pain - Eyes PERRL, normal ocular movement - ENT normal pinna, normal nares, normal mucosa, no hearing loss, no congestion - Neck No JVD, no lymphadenopathy. no masses, no bruits, trachea midline, no venous distension - Respiratory Lungs sounds essentially clear to her right lobes, diminished her left lobes. No wheezes, rhonchi or crackles. Respirations are symmetrical and nonlabored. - Cardiovascular Regular rhythm and rate. S1 and S2 present, negative for S3, gallop or murmur. - Abdomen Abdomen is soft, nontender and nondistended. Normal bowel sounds throughout. No guarding or rigidity. No organomegaly. - Genitourinary Deferred - Rectum Deferred - Integumentary No cyanosis, positive clubbing. Left chest thoracotomy incision is clean dry and approximated. Fluctuant mass to her left chest without any erythema. - Neurologic normal coordination, normal sensation - Musculoskeletal normal gait, normal posture - Psychiatric oriented to time, oriented to person, oriented to place, speech is normal, memory intact Results - Labs 03/08/20 10:19 03/08/20 10:19 Abnormal Lab Results - Last 24 Hours (Table) 03/07/20 03/07/20 03/07/20 Range/Units 19:15 19:15 19:15 WBC 19.9 H (3.8-10.6) k/uL RBC 3.30 L (3.80-5.40) m/uL Hgb 8.8 L (11.4-16.0) gm/dL Hct 28.6 L (34.0-46.0) % MCHC 30.7 L (31.0-37.0) g/dL RDW 17.2 H (11.5-15.5) % Plt Count 658 H (150-450) k/uL Neutrophils # 17.5 H (1.3-7.7) k/uL Lymphocytes # (1.0-4.8) k/uL D-Dimer 2.30 H (<0.60) mg/L FEU Sodium 133 L (137-145) mmol/L Potassium (3.5-5.1) mmol/L Chloride 94 L (98-107) mmol/L BUN (7-17) mg/dL Glucose 131 H (74-99) mg/dL Magnesium 1.5 L (1.6-2.3) mg/dL Total Protein 5.8 L (6.3-8.2) g/dL Albumin 2.9 L (3.5-5.0) g/dL Urine Appearance (Clear) Urine Protein (Negative) Urine Ketones (Negative) Ur Leukocyte Esterase (Negative) Urine RBC (0-5) /hpf Urine WBC (0-5) /hpf Ur Squamous Epith Cells (0-4) /hpf Amorphous Sediment (None) /hpf 03/07/20 03/08/20 03/08/20 Range/Units 19:15 10:19 10:19 WBC 23.8 H (3.8-10.6) k/uL RBC 3.26 L (3.80-5.40) m/uL Hgb 9.2 L (11.4-16.0) gm/dL Hct 29.0 L (34.0-46.0) % MCHC (31.0-37.0) g/dL RDW 16.5 H (11.5-15.5) % Plt Count 570 H (150-450) k/uL Neutrophils # 21.8 H (1.3-7.7) k/uL Lymphocytes # 0.8 L (1.0-4.8) k/uL D-Dimer (<0.60) mg/L FEU Sodium 135 L (137-145) mmol/L Potassium 3.3 L (3.5-5.1) mmol/L Chloride 96 L (98-107) mmol/L BUN 6 L (7-17) mg/dL Glucose 140 H (74-99) mg/dL Magnesium (1.6-2.3) mg/dL Total Protein (6.3-8.2) g/dL Albumin (3.5-5.0) g/dL Urine Appearance Cloudy H (Clear) Urine Protein Trace H (Negative) Urine Ketones Trace H (Negative) Ur Leukocyte Esterase Large H (Negative) Urine RBC 11 H (0-5) /hpf Urine WBC 29 H (0-5) /hpf Ur Squamous Epith Cells 27 H (0-4) /hpf Amorphous Sediment Rare H (None) /hpf Microbiology - Last 24 Hours (Table) 03/07/20 19:15 Urine Culture - Preliminary Urine,Clean Catch Diabetes panel 03/07/20 03/08/20 Range/Units 19:15 10:19 Sodium 133 L 135 L (137-145) mmol/L Potassium 3.6 3.3 L (3.5-5.1) mmol/L Chloride 94 L 96 L (98-107) mmol/L Carbon Dioxide 30 29 (22-30) mmol/L BUN 7 6 L (7-17) mg/dL Creatinine 0.58 0.55 (0.52-1.04) mg/dL Glucose 131 H 140 H (74-99) mg/dL Calcium 8.4 8.5 (8.4-10.2) mg/dL AST 14 (14-36) U/L ALT <6 (4-34) U/L Alkaline Phosphatase 101 (38-126) U/L Total Protein 5.8 L (6.3-8.2) g/dL Albumin 2.9 L (3.5-5.0) g/dL Calcium panel 03/07/20 03/08/20 Range/Units 19:15 10:19 Calcium 8.4 8.5 (8.4-10.2) mg/dL Albumin 2.9 L (3.5-5.0) g/dL Pituitary panel 03/07/20 03/08/20 Range/Units 19:15 10:19 Sodium 133 L 135 L (137-145) mmol/L Potassium 3.6 3.3 L (3.5-5.1) mmol/L Chloride 94 L 96 L (98-107) mmol/L Carbon Dioxide 30 29 (22-30) mmol/L BUN 7 6 L (7-17) mg/dL Creatinine 0.58 0.55 (0.52-1.04) mg/dL Glucose 131 H 140 H (74-99) mg/dL Calcium 8.4 8.5 (8.4-10.2) mg/dL Adrenal panel 03/07/20 03/08/20 Range/Units 19:15 10:19 Sodium 133 L 135 L (137-145) mmol/L Potassium 3.6 3.3 L (3.5-5.1) mmol/L Chloride 94 L 96 L (98-107) mmol/L Carbon Dioxide 30 29 (22-30) mmol/L BUN 7 6 L (7-17) mg/dL Creatinine 0.58 0.55 (0.52-1.04) mg/dL Glucose 131 H 140 H (74-99) mg/dL Calcium 8.4 8.5 (8.4-10.2) mg/dL Total Bilirubin 0.3 (0.2-1.3) mg/dL AST 14 (14-36) U/L ALT <6 (4-34) U/L Alkaline Phosphatase 101 (38-126) U/L Total Protein 5.8 L (6.3-8.2) g/dL Albumin 2.9 L (3.5-5.0) g/dL - Imaging Chest x-ray: report reviewed, image reviewed Assessment and Plan Assessment: 1. 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 History of empyema left lung with cultures positive for actinomyces odontolyticus, status post left thoracotomy, total lung decortication, pectoralis major pedicle flap transposition into the left pleural space, cryoablation of the intercostal nerves on 02/03/2020. Maintained on oral Flagyl and IV ceftriaxone in the outpatient setting 3. History of hypertension 4. History of hyperlipidemia 5. Type 2 diabetes mellitus 6. Remote history of tobacco dependence 7. History of cervical cancer status post hysterectomy 8. History of anxiety/bipolar disorder Plan: The patient was seen and examined at her bedside on the medical surgical unit with Dr. Alexandre. Her chart diagnostics were reviewed. No surgical intervention is warranted at this time. She may need a follow-up computed tomography scan of her chest with contrast to better define residual empyema and need for drainage of left chest fluctuant mass. Continue antibiotic management per infectious disease recommendations. Encourage use of her incentive spirometry 10 times every hour while awake. We will continue to monitor her daily chest x- rays. More recommendations to follow based on patient's clinical course. Bronchodilators management per pulmonary medicine recommendations. Medical management per primary care service. Thank you for this consult and we will look forward to working with you in the care of this patient. Time with Patient: Greater than 30
--- NOTE | 2020-03-08 18:42 | P.HPIM ---
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 Denies fever, chills. Denies drainage. Chest x-ray reported worsening left-sided tension hydrothorax with mild shift of the heart and mediastinum to the right side, almost complete opacification left hemothorax, small fluid level in the left lung apex, minimal infiltrate lateral right lower lobe. EKG reported Normal sinus rhythm, anterior infarct, age undetermined. Troponin less than 0.012.UA reporting large leukocytes, no nitrates 29 WBCs. Afebrile, VSS, maintaining O2 sats in the 90s on 2 L nasal cannula. Rocephin and Flagyl resumed. Review of Systems ROS Other: All systems not noted in ROS Statement are negative. ROS Statement: Those systems with pertinent positive or pertinent negative responses have been documented in the HPI. Past Medical History Past Medical History: Atrial Fibrillation, Cancer, COPD, Diabetes Mellitus, Fibromyalgia, Hyperlipidemia, Hypertension Additional Past Medical History / Comment(s): Hx suspected A Fib. Hx of Cervical Cancer. Lung Cancer diagnosed 10/2019. SOB at times, hemoptysis occ. Wound healing Lt upper back. PICC line for daily IV AB Rx at Dr Dc. History of Any Multi-Drug Resistant Organisms: None Reported Past Surgical History: Hysterectomy Additional Past Surgical History / Comment(s): VAGINAL HYSTERECTOMY. Upper left lobectomy 12/2019; 02/03/20 Lt Thoracotomy, Lung decortication, Pectoralis major pedicle flap transposition. PICC line 02/15/20. Past Anesthesia/Blood Transfusion Reactions: No Reported Reaction, Family History of Problems w/ Anesthesia, Motion Sickness Additional Past Anesthesia/Blood Transfusion Reaction / Comment(s): Father had significant blood pressure dropping years ago. Past Psychological History: Anxiety, Bipolar, Depression Smoking Status: Former smoker Past Alcohol Use History: None Reported Additional Past Alcohol Use History / Comment(s): QUIT SMOKING OCT 2019, SMOKED 1 PPD, SMOKED FOR 40 YEARS. Past Drug Use History: None Reported - Past Family History Mother Family Medical History: Cancer, Diabetes Mellitus Additional Family Medical History / Comment(s): BREAST CANCER Father Family Medical History: Cancer Additional Family Medical History / Comment(s): LUNG CANCER Medications and Allergies Home Medications Medication Instructions Recorded Confirmed Type DULoxetine HCL [Cymbalta] 60 mg PO DAILY 06/04/16 03/04/20 History metFORMIN HCL 500 mg PO BID 12/28/19 03/04/20 History Albuterol Inhaler [Ventolin Hfa 2 puff INHALATION RT-QID PRN 01/29/20 03/04/20 History Inhaler] Bisoprolol Fumarate [Zebeta] 10 mg PO DAILY 01/29/20 03/04/20 History Magnesium Oxide [Mag-Ox] 400 mg PO BID #0 tab 01/29/20 03/04/20 Rx Pantoprazole Sodium 40 mg PO AC-BRKFST 01/29/20 03/04/20 History cefTRIAXone [Rocephin] 2,000 mg IVP Q24HR #42 vial 02/12/20 03/04/20 Rx metroNIDAZOLE [Flagyl] 500 mg PO Q8HR #90 tab 02/12/20 03/04/20 Rx Acetaminophen Tab [Tylenol] 1,000 mg PO Q6HR PRN tab 02/15/20 03/04/20 Rx Ascorbic Acid [Vitamin C] 500 mg PO DAILY tab 02/15/20 03/04/20 Rx Furosemide [Lasix] 20 mg PO DAILY #30 tab 02/15/20 03/04/20 Rx Valsartan [Diovan] 160 mg PO DAILY #30 tab 02/15/20 03/04/20 Rx amLODIPine [Norvasc] 10 mg PO DAILY #30 tab 02/15/20 03/04/20 Rx hydrALAZINE HCL [Apresoline] 50 mg PO QID #120 tab 02/15/20 03/04/20 Rx Hydroxyzine Pamoate (Unknown) 1 tab PO HS 02/29/20 03/04/20 History Ibuprofen [Motrin] 600 mg PO Q8HR PRN 02/29/20 03/04/20 History Allergies Allergy/AdvReac Type Severity Reaction Status Date / Time mold Allergy Unknown Dyspnea, Verified 03/07/20 17:28 Rash, Swelling Penicillins Allergy Unknown Verified 03/07/20 17:28 Childhood Physical Exam Vitals: Vital Signs Temp Pulse Pulse Resp BP BP Pulse Ox 03/08/20 15:53 98.2 F 77 15 107/65 91 L 03/08/20 15:20 94 03/08/20 15:10 92 03/08/20 13:57 16 03/08/20 12:23 100 03/08/20 12:15 100 03/08/20 12:10 98.2 F 79 16 119/79 94 L 03/08/20 10:52 75 16 127/86 96 03/08/20 09:23 20 03/08/20 08:54 102 H 03/08/20 08:43 106 H 03/08/20 08:22 98.3 F 105 H 20 162/89 94 L 03/08/20 06:34 100 148/85 99 03/08/20 04:54 102 H 03/08/20 04:45 96 03/08/20 04:20 159/94 100 03/08/20 04:00 151/88 100 03/08/20 03:40 151/88 99 03/08/20 03:20 149/84 100 03/08/20 03:00 149/92 99 03/08/20 02:40 149/92 99 03/08/20 02:30 140/86 99 03/08/20 02:20 140/86 100 03/08/20 02:10 140/86 100 03/08/20 02:00 147/89 99 03/08/20 01:50 147/89 100 03/08/20 01:40 147/89 99 03/08/20 01:30 161/88 100 03/08/20 01:20 161/88 100 03/08/20 01:10 161/88 100 03/08/20 01:00 151/88 03/08/20 00:50 151/88 100 03/08/20 00:47 103 H 17 151/88 100 03/08/20 00:40 146/82 03/08/20 00:30 148/92 03/08/20 00:10 148/92 03/07/20 23:50 154/87 03/07/20 23:40 154/87 03/07/20 23:30 165/101 03/07/20 23:20 165/101 03/07/20 23:10 165/101 03/07/20 23:00 98.9 F 99 20 164/101 95 03/07/20 22:50 163/115 03/07/20 22:30 115 H 03/07/20 22:20 105 H 98 03/07/20 22:10 171/108 99 03/07/20 22:00 106 H 22 166/91 99 03/07/20 21:50 166/91 98 03/07/20 21:40 166/91 99 03/07/20 21:30 168/106 99 03/07/20 21:20 108 H 99 03/07/20 21:10 111 H 99 03/07/20 21:00 99 03/07/20 20:50 110 H 97 03/07/20 20:40 99 03/07/20 20:31 111 H 22 172/96 100 03/07/20 20:20 105 H 163/105 100 03/07/20 20:10 163/105 03/07/20 19:59 107 H 03/07/20 19:53 106 H 03/07/20 19:25 107 H 24 174/104 100 03/07/20 18:28 105 H 22 171/100 99 Intake and Output 03/08/20 03/08/20 03/08/20 06:59 14:59 22:59 Intake Total 690 540 Balance 690 540 Intake: Intake, IV Titration 150 Amount Magnesium Sulfate-D5w Pmx 100 1 gm In Dextrose/Water 1 100ml.bag @ 100 mls/hr IVPB Q1H [facility] Rx#: [id number] cefTRIAXone 2 gm In 50 Sodium Chloride 0.9% 50 ml @ 100 mls/hr IVPB Q24H [facility] Rx#:[id number] Oral 540 540 Other: Voiding Method Toilet # Voids 2 Weight 59.421 kg GENERAL: Sitting up in bed, no acute distress NECK: No JVD. No thyroid enlargement. No LNs CARDIOVASCULAR: S1, S2 regular. No murmur RESPIRATION: Nonlabored. Breath sounds diminished. Occasional scattered fine crackles, dullness of the left lobe. ABDOMEN: Soft, nontender . No guarding. no masses palpable. Positive Bowel sounds. LEGS: No edema, wearing JOHAN hose. no swelling. No clubbing, no cyanosis PSYCHIATRY: Alert and oriented X3, mood and affect normal. NERVOUS SYSTEM: Cranial N 2-12 grossly normal. Moves all 4 limbs. No focal deficits. Strength and sensation grossly intact. Skin: no rashes.Left chest -posterior/lateral large subcutaneous fluid filled abscess, prior surgical incision well approximated, 3 puncture wounds from prior chest tubes scabbed, crusty. Microbiology 03/07/20 19:15 Urine,Clean Catch Urine Culture - Preliminary Results CBC & Chem 7: 03/08/20 10:19 03/08/20 10:19 Labs: Abnormal Lab Results - Last 24 Hours (Table) 03/07/20 03/07/20 03/07/20 Range/Units 19:15 19:15 19:15 WBC 19.9 H (3.8-10.6) k/uL RBC 3.30 L (3.80-5.40) m/uL Hgb 8.8 L (11.4-16.0) gm/dL Hct 28.6 L (34.0-46.0) % MCHC 30.7 L (31.0-37.0) g/dL RDW 17.2 H (11.5-15.5) % Plt Count 658 H (150-450) k/uL Neutrophils # 17.5 H (1.3-7.7) k/uL Lymphocytes # (1.0-4.8) k/uL D-Dimer 2.30 H (<0.60) mg/L FEU Sodium 133 L (137-145) mmol/L Potassium (3.5-5.1) mmol/L Chloride 94 L (98-107) mmol/L BUN (7-17) mg/dL Glucose 131 H (74-99) mg/dL Magnesium 1.5 L (1.6-2.3) mg/dL Total Protein 5.8 L (6.3-8.2) g/dL Albumin 2.9 L (3.5-5.0) g/dL Urine Appearance (Clear) Urine Protein (Negative) Urine Ketones (Negative) Ur Leukocyte Esterase (Negative) Urine RBC (0-5) /hpf Urine WBC (0-5) /hpf Ur Squamous Epith Cells (0-4) /hpf Amorphous Sediment (None) /hpf 03/07/20 03/08/20 03/08/20 Range/Units 19:15 10:19 10:19 WBC 23.8 H (3.8-10.6) k/uL RBC 3.26 L (3.80-5.40) m/uL Hgb 9.2 L (11.4-16.0) gm/dL Hct 29.0 L (34.0-46.0) % MCHC (31.0-37.0) g/dL RDW 16.5 H (11.5-15.5) % Plt Count 570 H (150-450) k/uL Neutrophils # 21.8 H (1.3-7.7) k/uL Lymphocytes # 0.8 L (1.0-4.8) k/uL D-Dimer (<0.60) mg/L FEU Sodium 135 L (137-145) mmol/L Potassium 3.3 L (3.5-5.1) mmol/L Chloride 96 L (98-107) mmol/L BUN 6 L (7-17) mg/dL Glucose 140 H (74-99) mg/dL Magnesium (1.6-2.3) mg/dL Total Protein (6.3-8.2) g/dL Albumin (3.5-5.0) g/dL Urine Appearance Cloudy H (Clear) Urine Protein Trace H (Negative) Urine Ketones Trace H (Negative) Ur Leukocyte Esterase Large H (Negative) Urine RBC 11 H (0-5) /hpf Urine WBC 29 H (0-5) /hpf Ur Squamous Epith Cells 27 H (0-4) /hpf Amorphous Sediment Rare H (None) /hpf Microbiology - Last 24 Hours (Table) 03/07/20 19:15 Urine Culture - Preliminary Urine,Clean Catch Thrombosis Risk Factor Assmnt - Choose All That Apply Each Factor Represents 1 point: Abnormal pulmonary function (COPD), Age 41-60 years, History of prior major surgery (<1month) Thrombosis Risk Factor Assessment Total Risk Factor Score: 3 Thrombosis Risk Factor Assessment Level: Moderate Risk Assessment and Plan Assessment: -Worsening Left-sided tension hydrothorax with mild shift of the heart and mediastinum to the right -Acute hypoxic respiratory failure secondary to the above --Poorly differentiated squamous cell CA, left upper lobe Current Visit: Yes Status: Acute Code(s): C34.90 - MALIGNANT NEOPLASM OF UNSP PART OF UNSP BRONCHUS OR LUNG SNOMED Code(s): 438176188 -- S/P lobectomy of the left upper lung , 12/31/2019 Current Visit: Yes Status: Chronic Priority: Low Code(s): Z90.2 - ACQUIRED ABSENCE OF LUNG [PART OF] SNOMED Code(s): 66478804145084020 -Recent Empyema of the left pleural space ,status post left thoracotomy, total lung decortication, pectoralis major pedicle flap into left pleural space, cryoablation of the intercostal nerves. Cultures reported actinomyces. Current Visit: Yes Status: Acute Priority: High Code(s): J94.8 - OTHER SPECIFIED PLEURAL CONDITIONS SNOMED Code(s): 22690891 -Chronic CHF exacerbation, diastolic dysfunction - Essential (primary) hypertension Current Visit: No Status: Chronic Priority: Medium Code(s): I10 - ESSENTI AL (PRIMARY) HYPERTENSION SNOMED Code(s): 73862264 -Hypokalemia - hypomagnesemia - Hyponatremia Current Visit: Yes Status: Acute Code(s): E87.1 - HYPO-OSMOLALITY AND HY PONATREMIA SNOMED Code(s): 77493223 -Major depressive disorder, recurrent, moderate Current Visit: No Status: Acute Code(s): F33.1 - MAJOR DEPRESSIVE DISORDER, RECURRENT, MODERATE SNOMED Code(s): 097658151 -Type 2 diabetes mellitus Current Visit: No Status: Acute Code(s): E11.9 - TYPE 2 DIABETES MELLITUS WITHOUT COMPLICATIONS SNOMED Code(s): 250387461 - Fibromyalgia Current Visit: Yes Status: Acute Code(s): M79.7 - FIBROMYALGIA SNOMED Code(s): 409382560 - hypoproteinemia - Paroxysmal atrial fibrillation, Eliquis on hold Current Visit: Yes Status: Chronic Priority: Medium Code(s): I48.0 - PA ROXYSMAL ATRIAL FIBRILLATION SNOMED Code(s): 181565355 -Prior nicotine dependence Plan: Continue on current medication regime ,monitoring and symptomatic treatment. Pulmonary, cardiothoracic surgery, infectious disease consulted. Maintain IV antibiotics of Rocephin and Flagyl. Electrolyte replacements as per replacement protocol as ordered. Continue on nebulized bronchodilators. Home meds have been reviewed and resumed accordingly. The impression and plan of care has been dictated as directed. : I performed a history and examination of this patient, discussed the same with the dictator. I agree with the dictator's note ,documented as a scribe. Any additional findings or plans will be noted.
[2020-03-08 21:39] LABS: Glucose,Whole Blood 155 mg/dL (75-99)
--- NOTE | 2020-03-09 00:39 | P.CONS ---
History of Present Illness - Reason for Consult Consult date: 03/08/20 empyema Requesting physician: Nathan Leroy - Chief Complaint shortness of breath and left sided chest pain x 1 day - History of Present Illness Patient is a 55-year-old female with a past medical history significant for poorly differentiated squamous cell carcinoma status post left upper lobe lobectomy subsequent hypokalemia left chest this patient status post left thoracotomy with total lung decortication and pectoralis major pedicle flap transposition into the left pleural space culture did grew actinomyces patient did have penicillin allergy she has been advised to Rocephin 2 g daily and oral Flagyl with the patient currently was getting in the outpatient setting patient is presenting to the [facility] ER yesterday with chief complaints of increasing shortness of breath that apparently started getting worse the day before she presented to hospital patient be complaining of left-sided chest wall pain and also noticed to have some swelling patient also complaining of cough with some frothy bloody sputum no significant purulence denies any choking on the food no nausea vomiting no vomiting only diarrhea with the symptom had the patient presented to hospital on route to the ER the patient has been afebrile patient did have white count of 19,000 and her repeat is up to 23.8 urine has been mildly positive garza PCR was negative patient had did have a chest x-ray showing left-sided tension height with thorax slightly worse than previous exam with some mild shift of the heart mediastinum to the right side patient has been admitted to hospital continued on Rocephin and Flagyl infectious disease was consulted for further management of antibiotic therapy. Review of Systems Positive point has been mentioned in HPI rest of the systems are negative. Past Medical History Past Medical History: Atrial Fibrillation, Cancer, COPD, Diabetes Mellitus, Fibromyalgia, Hyperlipidemia, Hypertension Additional Past Medical History / Comment(s): Hx suspected A Fib. Hx of Cervical Cancer. Lung Cancer diagnosed 10/2019. SOB at times, hemoptysis occ. Wound healing Lt upper back. PICC line for daily IV AB Rx at Dr Dc. History of Any Multi-Drug Resistant Organisms: None Reported Past Surgical History: Hysterectomy Additional Past Surgical History / Comment(s): VAGINAL HYSTERECTOMY. Upper left lobectomy 12/2019; 02/03/20 Lt Thoracotomy, Lung decortication, Pectoralis major pedicle flap transposition. PICC line 02/15/20. Past Anesthesia/Blood Transfusion Reactions: No Reported Reaction, Family History of Problems w/ Anesthesia, Motion Sickness Additional Past Anesthesia/Blood Transfusion Reaction / Comm: Father had significant blood pressure dropping years ago. Past Psychological History: Anxiety, Bipolar, Depression Smoking Status: Former smoker Past Alcohol Use History: None Reported Additional Past Alcohol Use History / Comment(s): QUIT SMOKING OCT 2019, SMOKED 1 PPD, SMOKED FOR 40 YEARS. Past Drug Use History: None Reported - Past Family History Mother Family Medical History: Cancer, Diabetes Mellitus Additional Family Medical History / Comment(s): BREAST CANCER Father Family Medical History: Cancer Additional Family Medical History / Comment(s): LUNG CANCER Medications and Allergies Home Medications Medication Instructions Recorded Confirmed Type DULoxetine HCL [Cymbalta] 60 mg PO DAILY 06/04/16 03/04/20 History metFORMIN HCL 500 mg PO BID 12/28/19 03/04/20 History Albuterol Inhaler [Ventolin Hfa 2 puff INHALATION RT-QID PRN 01/29/20 03/04/20 History Inhaler] Bisoprolol Fumarate [Zebeta] 10 mg PO DAILY 01/29/20 03/04/20 History Magnesium Oxide [Mag-Ox] 400 mg PO BID #0 tab 01/29/20 03/04/20 Rx Pantoprazole Sodium 40 mg PO AC-BRKFST 01/29/20 03/04/20 History cefTRIAXone [Rocephin] 2,000 mg IVP Q24HR #42 vial 02/12/20 03/04/20 Rx metroNIDAZOLE [Flagyl] 500 mg PO Q8HR #90 tab 02/12/20 03/04/20 Rx Acetaminophen Tab [Tylenol] 1,000 mg PO Q6HR PRN tab 02/15/20 03/04/20 Rx Ascorbic Acid [Vitamin C] 500 mg PO DAILY tab 02/15/20 03/04/20 Rx Furosemide [Lasix] 20 mg PO DAILY #30 tab 02/15/20 03/04/20 Rx Valsartan [Diovan] 160 mg PO DAILY #30 tab 02/15/20 03/04/20 Rx amLODIPine [Norvasc] 10 mg PO DAILY #30 tab 02/15/20 03/04/20 Rx hydrALAZINE HCL [Apresoline] 50 mg PO QID #120 tab 02/15/20 03/04/20 Rx Hydroxyzine Pamoate (Unknown) 1 tab PO HS 02/29/20 03/04/20 History Ibuprofen [Motrin] 600 mg PO Q8HR PRN 02/29/20 03/04/20 History Allergies Allergy/AdvReac Type Severity Reaction Status Date / Time mold Allergy Unknown Dyspnea, Verified 03/07/20 17:28 Rash, Swelling Penicillins Allergy Unknown Verified 03/07/20 17:28 Childhood Physical Exam Vitals: Vital Signs Temp Pulse Pulse Resp BP BP Pulse Ox 03/08/20 20:11 96 03/08/20 20:01 96 03/08/20 15:53 98.2 F 77 15 107/65 91 L 03/08/20 15:20 94 03/08/20 15:10 92 03/08/20 13:57 16 03/08/20 12:23 100 03/08/20 12:15 100 03/08/20 12:10 98.2 F 79 16 119/79 94 L 03/08/20 10:52 75 16 127/86 96 03/08/20 09:23 20 03/08/20 08:54 102 H 03/08/20 08:43 106 H 03/08/20 08:22 98.3 F 105 H 20 162/89 94 L 03/08/20 06:34 100 148/85 99 03/08/20 04:54 102 H 03/08/20 04:45 96 03/08/20 04:20 159/94 100 03/08/20 04:00 151/88 100 03/08/20 03:40 151/88 99 03/08/20 03:20 149/84 100 03/08/20 03:00 149/92 99 03/08/20 02:40 149/92 99 03/08/20 02:30 140/86 99 03/08/20 02:20 140/86 100 03/08/20 02:10 140/86 100 03/08/20 02:00 147/89 99 03/08/20 01:50 147/89 100 03/08/20 01:40 147/89 99 03/08/20 01:30 161/88 100 03/08/20 01:20 161/88 100 03/08/20 01:10 161/88 100 03/08/20 01:00 151/88 03/08/20 00:50 151/88 100 03/08/20 00:47 103 H 17 151/88 100 03/08/20 00:40 146/82 03/08/20 00:30 148/92 03/08/20 00:10 148/92 Intake and Output 03/08/20 03/08/20 03/09/20 14:59 22:59 06:59 Intake Total 690 540 Balance 690 540 Intake: Intake, IV Titration 150 Amount Magnesium Sulfate-D5w Pmx 100 1 gm In Dextrose/Water 1 100ml.bag @ 100 mls/hr IVPB Q1H [facility] Rx#: [id number] cefTRIAXone 2 gm In 50 Sodium Chloride 0.9% 50 ml @ 100 mls/hr IVPB Q24H [facility] Rx#:[id number] Oral 540 540 Other: Voiding Method Toilet # Voids 2 Weight 59.421 kg GENERAL DESCRIPTION: Middle-aged female lying in bed, no distress. No tachypnea or accessory muscle of respiration use. HEENT: Shows Pallor , no scleral icterus. Oral mucous membrane is dry. NECK: Trachea central, no thyromegaly. LUNGS: Unlabored breathing. Decreased breath sound on the left side incision is currently intact and no drainage was noticed. No wheeze or crackle. HEART: S1, S2, regular rate and rhythm. ABDOMEN: Soft, no tenderness , guarding or rigidity EXTREMITIES: No edema of feet. SKIN: No rash, no masses palpable. NEUROLOGICAL: The patient is awake, alert, oriented x3, mood and affect normal Results CBC & Chem 7: 03/08/20 10:19 03/08/20 10:19 Labs: Abnormal Lab Results - Last 24 Hours (Table) 03/08/20 03/08/20 03/08/20 Range/Units 10:19 10:19 21:38 WBC 23.8 H (3.8-10.6) k/uL RBC 3.26 L (3.80-5.40) m/uL Hgb 9.2 L (11.4-16.0) gm/dL Hct 29.0 L (34.0-46.0) % RDW 16.5 H (11.5-15.5) % Plt Count 570 H (150-450) k/uL Neutrophils # 21.8 H (1.3-7.7) k/uL Lymphocytes # 0.8 L (1.0-4.8) k/uL Sodium 135 L (137-145) mmol/L Potassium 3.3 L (3.5-5.1) mmol/L Chloride 96 L (98-107) mmol/L BUN 6 L (7-17) mg/dL Glucose 140 H (74-99) mg/dL POC Glucose (mg/dL) 155 H (75-99) mg/dL Prealbumin 14.0 L (18.0-42.0) mg/dL Microbiology - Last 24 Hours (Table) 03/07/20 20:49 Blood Culture - Preliminary Blood No Growth after 24 hours 03/07/20 19:15 Urine Culture - Preliminary Urine,Clean Catch Assessment and Plan Assessment: patient with a history of lung cancer status post left lobectomy subsequently did have empyema status post thoracotomy and drainage of the empyema culture positive for actinomyces and anaerobic gram-negative while patient was getting Rocephin and Flagyl in outpatient setting because of her penicillin allergy now presenting hospital with morphine acute onset of chest pain and some fullness on the left side of the chest posteriorly with a chest x-ray suggestive of tension hydro-thorax is mild mid line mediastinal shift. (1) Empyema Current Visit: Yes Status: Acute Code(s): J86.9 - PYOTHORAX WITHOUT FISTULA SNOMED Code(s): 400171667 Plan: 1- Await CT surgery evaluation possible repeat drainage versus CT and CT-guided drainage 2-Rocephin 2 g daily Flagyl to continue 3-monitor clinical course and white count closely We will follow on clinical condition and cultures to further adjust medication if needed Thank you for this consultation we will follow the patient along with you Time with Patient: Greater than 30
[2020-03-09] MEDS: MORPHINE SULFATE 4 MG/ML SYRINGE IV PRN ×2 (00:56→09:59)
[2020-03-09] MEDS: ACETAMINOPHEN TAB 500 MG TAB PO PRN ×3 (05:50→20:49)
[2020-03-09 06:48] LABS: Glucose,Whole Blood 134 mg/dL (75-99)
[2020-03-09] MEDS: ALBUTEROL NEBULIZED 2.5 MG/3 ML INHALATION PRN ×3 (07:54→15:37)
[2020-03-09] MEDS: FUROSEMIDE 20 MG TAB PO SCH (08:10)
[2020-03-09] MEDS: PANTOPRAZOLE 40 MG TABLET PO SCH (08:11)
[2020-03-09] MEDS: metFORMIN 500 MG TAB PO SCH ×2 (08:11→20:55)
[2020-03-09] MEDS: ASCORBIC ACID 500 MG TAB PO SCH (08:11)
[2020-03-09] MEDS: metroNIDAZOLE 500 MG TAB PO SCH (08:11)
[2020-03-09] MEDS: hydrALAZINE HCL 50 MG TAB PO SCH ×3 (08:11→20:49)
[2020-03-09] MEDS: DULoxetine HCL 60 MG CAPSULE.DR PO SCH (08:11)
[2020-03-09] MEDS: amLODIPine 10 MG TAB PO SCH (08:14)
[2020-03-09] MEDS: BISOPROLOL 5 MG TAB PO SCH (08:22)
[2020-03-09] MEDS: VALSARTAN 160 MG TAB PO SCH (08:22)
[2020-03-09 08:44] LABS: Anisocytosis Slight; Basophils # (A) 0.1 k/uL (0-0.2); Basophils % (A) 0 %; Eosinophils # (A) 0.2 k/uL (0-0.7); Eosinophils % (A) 1 %; HCT 30.2 % (34.0-46.0); HGB 9.4 gm/dL (11.4-16.0); Hypochromasia Moderate; Lymphocytes # (A) 0.8 k/uL (1.0-4.8); Lymphocytes % (A) 3 %; MCH 27.9 pg (25.0-35.0); MCHC 31.3 g/dL (31.0-37.0); MCV 89.3 fL (80.0-100.0); Mean Platelet Volume 7.1; Monocytes # (A) 0.6 k/uL (0-1.0); Monocytes % (A) 2 %; Neutrophils # (A) 25.5 k/uL (1.3-7.7); Neutrophils % (A) 93 %; Platelet Count 581 k/uL (150-450); RBC 3.38 m/uL (3.80-5.40); RDW 16.4 % (11.5-15.5)
[2020-03-09 09:09] LABS: African American GFR (CKD) >90 (>60 ml/min/1.73 sqM); Anion Gap 10 mmol/L; Blood Urea Nitrogen 7 mg/dL (7-17); Calcium 8.6 mg/dL (8.4-10.2); Carbon Dioxide 28 mmol/L (22-30); Chloride 94 mmol/L (98-107); Glucose 146 mg/dL (74-99); Magnesium 1.8 mg/dL (1.6-2.3); Non-African American GFR(CKD) >90 (>60 ml/min/1.73 sqM); Sodium 132 mmol/L (137-145)
[2020-03-09 09:26] LABS: WBC 27.4 k/uL (3.8-10.6)
[2020-03-09] MEDS ORDERED: RX INFO: IV CONTRAST WAS GIVEN 1 EACH MISC MISCELLANE PRN (11:29)
[2020-03-09] MEDS ORDERED: LIDOCAINE 1% INJ 10MG/ML (20 ML MDV) ONE (12:12)
[2020-03-09 12:26] LABS: Glucose,Whole Blood 99 mg/dL (75-99)
--- NOTE | 2020-03-09 12:47 | P.PN ---
<Mauri Boswell - Last Filed: 03/09/20 12:37> Subjective Progress Note Date: 03/09/20 Principal diagnosis: Status post left upper lobectomy and history of empyema left chest with culture showing actinomyces odontolyticusstatus, status post left thoracotomy with total lung decortication, pectoralis major radical flap transposition into the left pleural space. This is a 55-year-old female patient who follows on an outpatient basis with Dr. Nathan Leroy. She is a past medical history significant for poorly differentiated squamous cell carcinoma, status post left upper lobectomy, empyema left chest with culture showing actinomyces odontolyticusstatus, status post left thoracotomy with total lung decortication, pectoralis major radical flap transposition into the left pleural space, hypertension, hyperlipidemia, chronic tobacco, type 2 diabetes mellitus, cervical cancer status post h ysterectomy, anxiety and bipolar disorder. She presented to the emergency department here at [facility] yesterday with complaints of increasing shortness of breath and some recurrent left chest wall pain. She also reports she was coughing up blood. Denies any recent fever, chills, nausea, vomiting, or diarrhea. Due to her recent cultures positive for actinomyces odontolyticus she has been receiving outpatient antibiotic treatments maintained on IV Rocephin and oral Flagyl per management by infectious disease. On 03/01/2020 she underwent a bronchoscopy completed by Dr. Luque and was found to have a normal stump to the left upper chest and near complete obstruction of the left lower lobe bronchus, mainly due to extrinsic compression. The chest x-ray completed on presentation showed a left sided tension hydrothorax with some mild shift of the heart and mediastinum to the right. 12-lead EKG demonstrated normal sinus rhythm heart rate 99 BPM. Due to the patient's recent left upper lobectomy, and thoracotomy with decortication a consult was placed to Dr. Lars Alexandre from cardiothoracic surgery for further evaluation and treatment recommendations. The patient is seen in follow-up today 03/09/2020 at her bedside in the cardiac stepdown unit. Currently she is sitting up to the bedside chair and is in no acute distress. She remained hemodynamically stable, she is awake, alert and oriented 3. This morning she denies any complaints of shortness of breath although is complaining of some pain to her left chest wall. Oxygen saturation are 96% on 2 L nasal cannula and she is achieving 750 mL on her incentive spirometry. She does have some scant serosanguineous drainage to her dressing to her left chest wall. Left antecubital PICC line remains in place for antibiotic treatments in the way of Rocephin and she continues on oral Flagyl which are being managed by infectious disease. She has been afebrile the last 24 hours, her labs this morning show a trending up of her WBCs which are 27.4 today, hemoglobin 9.4, platelets 581, BUN 7 and creatinine 0.58. Urine culture preliminary results shows yeast species colony count greater than 100,000 CFU per milliliter. Objective - Vital Signs Vital signs: Vital Signs Temp 97.6 F 03/09/20 07:00 Pulse 72 03/09/20 11:22 Resp 17 03/09/20 07:00 BP 135/73 03/09/20 07:00 Pulse Ox 94 L 03/09/20 07:00 Intake & Output 03/08/20 03/09/20 03/09/20 18:59 06:59 18:59 Intake Total 1230 Balance 1230 Weight 59.421 kg Intake: Intake, IV Titration 150 Amount Magnesium Sulfate-D5w Pmx 100 1 gm In Dextrose/Water 1 100ml.bag @ 100 mls/hr IVPB Q1H [facility] Rx#: [id number] cefTRIAXone 2 gm In 50 Sodium Chloride 0.9% 50 ml @ 100 mls/hr IVPB Q24H [facility] Rx#:[id number] Oral 1080 Other: Voiding Method Toilet Toilet # Voids 2 1 - Exam This is a pleasant 55-year-old female patient who is poorly sitting up to the bedside chair on the cardiac stepdown unit. She is awake, alert and oriented 3 and is in no acute apparent distress. She remained hemodynamically stable and afebrile the last 24 hours. Oxygen saturation are 96% on 2 L nasal cannula and she is achieving 750 mL on her incentive spirometry. - Constitutional General appearance: Present: cooperative, no acute distress, thin - EENT Eyes: Present: PERRLA, normal appearance. Absent: scleral icterus ENT: Present: hearing grossly normal - Neck Details: Neck is supple, no JVD. - Respiratory Details: Lung sounds essentially diminished to her left lobe, essentially clear to her right lobes. No wheezes, rhonchi or crackles. Respirations are symmetrical and nonlabored. Oxygen saturation is 96% on 2 L nasal cannula. The tubing 750 mL on her incentive spirometry. - Cardiovascular Details: Regular rhythm and rate. S1 and S2 present, negative for S3, gallop or murmur. No edema present. - Gastrointestinal Gastrointestinal Comment(s): Abdomen is soft, nontender and nondistended. Active bowel sounds present all 4 abdominal quadrants. No guarding or rigidity. No organomegaly appreciated. Tolerating oral intake. - Integumentary Integumentary Comment(s): No cyanosis, positive clubbing. Left chest thoracotomy incision is clean dry and approximated. Fluctuant mass to her left chest without any erythema. - Neurologic Neurologic: Present: CNII-XII intact - Musculoskeletal Musculoskeletal: Present: gait normal, strength equal bilaterally - Psychiatric Psychiatric: Present: A&O x's 3, appropriate affect, intact judgment & insight - Allied health notes Allied health notes reviewed: nursing - Labs CBC & Chem 7: 03/09/20 07:36 03/09/20 07:36 Labs: Abnormal Lab Results - Last 24 Hours (Table) 03/08/20 03/08/20 03/09/20 Range/Units 10:19 21:38 06:46 WBC (3.8-10.6) k/uL RBC (3.80-5.40) m/uL Hgb (11.4-16.0) gm/dL Hct (34.0-46.0) % RDW (11.5-15.5) % Plt Count (150-450) k/uL Neutrophils # (1.3-7.7) k/uL Lymphocytes # (1.0-4.8) k/uL Sodium (137-145) mmol/L Chloride (98-107) mmol/L Glucose (74-99) mg/dL POC Glucose (mg/dL) 155 H 134 H (75-99) mg/dL Prealbumin 14.0 L (18.0-42.0) mg/dL 03/09/20 03/09/20 Range/Units 07:36 07:36 WBC 27.4 H (3.8-10.6) k/uL RBC 3.38 L (3.80-5.40) m/uL Hgb 9.4 L (11.4-16.0) gm/dL Hct 30.2 L (34.0-46.0) % RDW 16.4 H (11.5-15.5) % Plt Count 581 H (150-450) k/uL Neutrophils # 25.5 H (1.3-7.7) k/uL Lymphocytes # 0.8 L (1.0-4.8) k/uL Sodium 132 L (137-145) mmol/L Chloride 94 L (98-107) mmol/L Glucose 146 H (74-99) mg/dL POC Glucose (mg/dL) (75-99) mg/dL Prealbumin (18.0-42.0) mg/dL Microbiology - Last 24 Hours (Table) 03/07/20 19:15 Urine Culture - Preliminary Urine,Clean Catch Yeast species 03/07/20 20:49 Blood Culture - Preliminary Blood No Growth after 24 hours - Imaging and Cardiology Chest x-ray: report reviewed, image reviewed Assessment and Plan Assessment: 1. 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 History of empyema left lung with cultures positive for actinomyces odontolyticus, status post left thoracotomy, total lung decortication, pectoralis major pedicle flap transposition into the left pleural space, cryoablation of the intercostal nerves on 02/03/2020. Maintained on oral Flagyl and IV ceftriaxone in the outpatient setting 3. History of hypertension 4. History of hyperlipidemia 5. Type 2 diabetes mellitus 6. Remote history of tobacco dependence 7. History of cervical cancer status post hysterectomy 8. History of anxiety/bipolar disorder Plan: 1. We will obtain a CT of the chest with and without contrast today for reevaluation. 2. Continue to encourage use of her incentive spirometry 10 times every hour while awake. 3. Antibiotic management per infectious disease. WBCs 27.4 today, she has been afebrile last 24 hours. 4. Medical management and other comorbidities per primary care service. 5. Encourage increase activity as tolerated. Out of bed for all meals. 6. Continue to monitor daily chest x-rays. 7. More recommendations to follow based on patient's clinical course. Time with Patient: Less than 30 <BettieJovibrenda - Last Filed: 03/09/20 13:15> Objective - Vital Signs Vital signs: Vital Signs Temp 97.6 F 03/09/20 07:00 Pulse 72 03/09/20 11:22 Resp 17 03/09/20 07:00 BP 135/73 03/09/20 07:00 Pulse Ox 94 L 03/09/20 07:00 Intake & Output 03/08/20 03/09/20 03/09/20 18:59 06:59 18:59 Intake Total 1230 Balance 1230 Weight 59.421 kg Intake: Intake, IV Titration 150 Amount Magnesium Sulfate-D5w Pmx 100 1 gm In Dextrose/Water 1 100ml.bag @ 100 mls/hr IVPB Q1H [facility] Rx#: [id number] cefTRIAXone 2 gm In 50 Sodium Chloride 0.9% 50 ml @ 100 mls/hr IVPB Q24H [facility] Rx#:[id number] Oral 1080 Other: Voiding Method Toilet Toilet # Voids 2 1 - Labs CBC & Chem 7: 03/09/20 07:36 03/09/20 07:36 Labs: Abnormal Lab Results - Last 24 Hours (Table) 03/08/20 03/08/20 03/09/20 Range/Units 10:19 21:38 06:46 WBC (3.8-10.6) k/uL RBC (3.80-5.40) m/uL Hgb (11.4-16.0) gm/dL Hct (34.0-46.0) % RDW (11.5-15.5) % Plt Count (150-450) k/uL Neutrophils # (1.3-7.7) k/uL Lymphocytes # (1.0-4.8) k/uL Sodium (137-145) mmol/L Chloride (98-107) mmol/L Glucose (74-99) mg/dL POC Glucose (mg/dL) 155 H 134 H (75-99) mg/dL Prealbumin 14.0 L (18.0-42.0) mg/dL 03/09/20 03/09/20 Range/Units 07:36 07:36 WBC 27.4 H (3.8-10.6) k/uL RBC 3.38 L (3.80-5.40) m/uL Hgb 9.4 L (11.4-16.0) gm/dL Hct 30.2 L (34.0-46.0) % RDW 16.4 H (11.5-15.5) % Plt Count 581 H (150-450) k/uL Neutrophils # 25.5 H (1.3-7.7) k/uL Lymphocytes # 0.8 L (1.0-4.8) k/uL Sodium 132 L (137-145) mmol/L Chloride 94 L (98-107) mmol/L Glucose 146 H (74-99) mg/dL POC Glucose (mg/dL) (75-99) mg/dL Prealbumin (18.0-42.0) mg/dL Microbiology - Last 24 Hours (Table) 03/07/20 19:15 Urine Culture - Preliminary Urine,Clean Catch Yeast species 03/07/20 20:49 Blood Culture - Preliminary Blood No Growth after 24 hours Assessment and Plan Plan: F/U Urine culture and sensitivity
[2020-03-09] MEDS ORDERED: VANCOMYCIN IV PER PHARMACY 1 EACH MISC MISCELLANE PRN (12:53)
[2020-03-09] MEDS ORDERED: traMADol 50 MG TAB PO PRN (13:49)
--- NOTE | 2020-03-09 14:21 | P.PN ---
Subjective Progress Note Date: 03/09/20 This is a 55-year-old female, nicotine dependent, 40 year smoking history, quit in October 2019, with recently diagnosed -poorly differentiated squamous cell CA left lung, status post left upper lobectomy on 12/31/2019, recent empyema of the left pleural space, status post left thoracotomy, total lung decortication, pectoralis major pedicle flap into the left pleural space, cryoablation of the intercostal nerves, cultures were positive for actinomyces odontolyticus, which she had been maintained on oral Flagyl and Rocephin via PICC line, outpatient,Presented to the ER with complaints of worsening shortness of breath, recurrent left chest wall pain which she reports similar to prior admission for empyema. Denies fever, chills. Denies drainage. Chest x-ray reported worsening left-sided tension hydrothorax with mild shift of the heart and mediastinum to the right side, almost complete opacification left hemothorax, small fluid level in the left lung apex, minimal infiltrate lateral right lower lobe. EKG reported Normal sinus rhythm, anterior infarct, age undetermined. Troponin less than 0.012.UA reporting large leukocytes, no nitrates 29 WBCs. Afebrile, VSS, maintaining O2 sats in the 90s on 2 L nasal cannula. Rocephin and Flagyl resumed. 03/09/2020 maintained on IV antibiotics of Rocephin and Flagyl via PICC line. Afebrile, WBC worsening, up to 27.4. Urine culture reporting yeast species. Blood cultures reports no growth at 24 hours .Left chest wall pain uncontrolled, increasing on Tylenol, received morphine. Hemoglobin 9.4. Evaluated by cardiothoracic surgery,CT pending. Prior dressing with small amount of sanguinous drainage. Aspirated superficial abscess of the left lateral side of back, at bedside, serosanguineous drainage, sent for culture, silver rope inserted with ABD Dressing applied. Tolerated procedure well.VSS. Attending O2 sats in the 90s on 2 L nasal cannula. Incentive spirometer up to 750. Objective - Vital Signs Vital signs: Vital Signs Temp 97.6 F 03/09/20 07:00 Pulse 92 03/09/20 08:06 Resp 17 03/09/20 07:00 BP 135/73 03/09/20 07:00 Pulse Ox 94 L 03/09/20 07:00 Intake & Output 03/08/20 03/09/20 03/09/20 18:59 06:59 18:59 Intake Total 1230 Balance 1230 Weight 59.421 kg Intake: Intake, IV Titration 150 Amount Magnesium Sulfate-D5w Pmx 100 1 gm In Dextrose/Water 1 100ml.bag @ 100 mls/hr IVPB Q1H [facility] Rx#: [id number] cefTRIAXone 2 gm In 50 Sodium Chloride 0.9% 50 ml @ 100 mls/hr IVPB Q24H [facility] Rx#:[id number] Oral 1080 Other: Voiding Method Toilet Toilet # Voids 2 1 - Exam GENERAL: Sitting up in bed, no acute distress NECK: No JVD. No thyroid enlargement. No LNs CARDIOVASCULAR: S1, S2 regular. No murmur RESPIRATION: Nonlabored. Breath sounds diminished. Coarse dullness of the left lobe. ABDOMEN: Soft, nontender . No guarding. no masses palpable. Positive Bowel sounds. LEGS: No edema, wearing JOHAN hose. no swelling. No clubbing, no cyanosis PSYCHIATRY: Alert and oriented X3, mood and affect normal. NERVOUS SYSTEM: Cranial N 2-12 grossly normal. Moves all 4 limbs. No focal deficits. Strength and sensation grossly intact. Skin: no rashes.Left chest -posterior/lateral large subcutaneous fluid filled abscess, prior surgical incision well approximated, 3 puncture wounds from prior chest tubes scabbed. As mentioned above aspirated serosanguineous drainage, cultured, silver rope inserted with ABD applied over. Microbiology 03/07/20 19:15 Urine,Clean Catch Urine Culture - Preliminary Yeast species 03/07/20 20:49 Blood Blood Culture - Preliminary No Growth after 24 hours - Labs CBC & Chem 7: 03/09/20 07:36 03/09/20 07:36 Labs: Abnormal Lab Results - Last 24 Hours (Table) 03/08/20 03/08/20 03/09/20 Range/Units 10:19 21:38 06:46 WBC (3.8-10.6) k/uL RBC (3.80-5.40) m/uL Hgb (11.4-16.0) gm/dL Hct (34.0-46.0) % RDW (11.5-15.5) % Plt Count (150-450) k/uL Neutrophils # (1.3-7.7) k/uL Lymphocytes # (1.0-4.8) k/uL Sodium (137-145) mmol/L Chloride (98-107) mmol/L Glucose (74-99) mg/dL POC Glucose (mg/dL) 155 H 134 H (75-99) mg/dL Prealbumin 14.0 L (18.0-42.0) mg/dL 03/09/20 03/09/20 Range/Units 07:36 07:36 WBC 27.4 H (3.8-10.6) k/uL RBC 3.38 L (3.80-5.40) m/uL Hgb 9.4 L (11.4-16.0) gm/dL Hct 30.2 L (34.0-46.0) % RDW 16.4 H (11.5-15.5) % Plt Count 581 H (150-450) k/uL Neutrophils # 25.5 H (1.3-7.7) k/uL Lymphocytes # 0.8 L (1.0-4.8) k/uL Sodium 132 L (137-145) mmol/L Chloride 94 L (98-107) mmol/L Glucose 146 H (74-99) mg/dL POC Glucose (mg/dL) (75-99) mg/dL Prealbumin (18.0-42.0) mg/dL Microbiology - Last 24 Hours (Table) 03/07/20 19:15 Urine Culture - Preliminary Urine,Clean Catch Yeast species 03/07/20 20:49 Blood Culture - Preliminary Blood No Growth after 24 hours Assessment and Plan Assessment: -Worsening Left-sided tension hydrothorax with mild shift of the heart and mediastinum to the right -Acute hypoxic respiratory failure secondary to the above --Poorly differentiated squamous cell CA, left upper lobe Current Visit: Yes Status: Acute Code(s): C34.90 - MALIGNANT NEOPLASM OF UNSP PART OF UNSP BRONCHUS OR LUNG SNOMED Code(s): 356629140 -- S/P lobectomy of the left upper lung , 12/31/2019 Current Visit: Yes Status: Chronic Priority: Low Code(s): Z90.2 - ACQUIRED ABSENCE OF LUNG [PART OF] SNOMED Code(s): 98560119223093559 -Recent Empyema of the left pleural space ,status post left thoracotomy, total lung decortication, pectoralis major pedicle flap into left pleural space, cryoablation of the intercostal nerves. Cultures reported actinomyces. Current Visit: Yes Status: Acute Priority: High Code(s): J94.8 - OTHER SPECIFIED PLEURAL CONDITIONS SNOMED Code(s): 90410494 -Chronic CHF exacerbation, diastolic dysfunction - Essential (primary) hypertension Current Visit: No Status: Chronic Priority: Medium Code(s): I10 - ESSENTIAL (PRIMARY) HYPERTENSION SNOMED Code(s): 10734679 -Hypokalemia - hypomagnesemia - Hyponatremia Current Visit: Yes Status: Acute Code(s): E87.1 - HYPO-OSMOLALITY AND HYPONATREMIA SNOMED Code(s): 88357035 -Major depressive disorder, recurrent, moderate Current Visit: No Status: Acute Code(s): F33.1 - MAJOR DEPRESSIVE DISORDER, RECURRENT, MODERATE SNOMED Code(s): 794453426 -Type 2 diabetes mellitus Current Visit: No Status: Acute Code(s): E11.9 - TYPE 2 DIABETES MELLITUS WITHOUT COMPLICATIONS SNOMED Code(s): 685560661 - Fibromyalgia Current Visit: Yes Status: Acute Code(s): M79.7 - FIBROMYALGIA SNOMED Code(s): 262736145 - hypoproteinemia - Paroxysmal atrial fibrillation, Eliquis on hold Current Visit: Yes Status: Chronic Priority: Medium Code(s): I48.0 - PAROXYSMAL ATRIAL FIBRILLATION SNOMED Code(s): 612091448 -Prior nicotine dependence Plan: Continue on current medication regime ,monitoring and symptomatic treatment. Potential repeat drainage as per cardiothoracic surgery. CT pending.Cultures sent as mentioned above, from superficial abscess. Maintain IV antibiotics of Rocephin and Flagyl as per ID. Prognosis guarded, multiple complex medical issues. The impression and plan of care has been dictated as directed. : I performed a history and examination of this patient, discussed the same with the dictator. I agree with the dictator's note ,documented as a scribe. Any additional findings or plans will be noted.
--- NOTE | 2020-03-09 14:37 | CT ---
EXAMINATION TYPE: CT chest wo/w con DATE OF EXAM: 03/09/2020 COMPARISON: 02/29/2020 HISTORY: follow up to Lt pleural empyema, S/P res pec muscle flap CT DLP: 579.4 mGycm Automated exposure control for dose reduction was used. CONTRAST: CT scan of the chest is performed without and with IV Contrast, patient injected with 100 mL of Isovu e 300. FINDINGS: LUNGS: Again noted the patient is status post partial left lung resection. Multiloculated collections some of which contain internal foci of air are seen throughout the left chest from the lung apex thr ough the left lung base consistent with underlying infection. Scattered areas of consolidation are no joe with compressive atelectasis and pleural effusion. The left-sided posterior chest wall demonstrat e muscular edema noted and fluid collections seen. No significant interval change is appreciated scat tered groundglass infiltrates are noted throughout the right lung which have increased in the interva l and may reflect acute inflammatory process. MEDIASTINUM: There are no greater than 1 cm hilar or mediastinal lymph nodes. No pericardial effusi on is seen. Thoracic aorta is of normal caliber. The heart is not enlarged. UPPER ABDOMEN: No significant abnormality appreciated. OTHER: No additional significant abnormality is seen. IMPRESSION: 1. Essentially stable Multiloculated collections some of which contain internal foci of air are seen throughout the left chest from the lung apex through the left lung base consistent with underlying in fection. Scattered areas of consolidation are noted with compressive atelectasis and pleural effusion . 2. Left-sided posterior chest wall demonstrates muscular edema and fluid collection seen which may re flect contiguous spread of infection. 3. Increasing groundglass infiltrates throughout the right lung likely reflecting acute inflammatory process.
[2020-03-09] MEDS: VANCOMYCIN 1,000 MG in SODIUM CHLORIDE 0.9% 250 ML IVPB SCH ×2 (15:50→20:51)
--- NOTE | 2020-03-09 16:08 | PN ---
PROGRESS NOTE PULMONARY/CRITICAL CARE PROGRESS NOTE: DATE OF SERVICE: 03/09/2020 This is a 55-year-old female well known to our service. The patient has a history of acute hypoxemic respiratory failure secondary to a left-sided tension hydrothorax. The patient has a previous history of [id number] lung cancer, poorly differentiated squamous cell. She had a left parasternal mediastinotomy followed by a robotically assisted left upper lobectomy with mediastinal lymph node dissection by Dr. Wilkins. She was previously in the hospital with left-sided empyema. Subsequently she underwent a left thoracotomy with total lung decortication, pectoralis major pedicle flap transposition and cryoablation of the intercostal nerves. The patient was discharged home on Rocephin IV and Flagyl orally. She re-presented to the hospital with complaints of difficulty breathing and pain in the left chest area. She really denies any fever or chills. Anyway, she has been seen by Cardiothoracic Surgery and Infectious Disease. She is also being followed by Dr. Leroy in Internal Medicine. We have seen her as well. PHYSICAL EXAMINATION: VITAL SIGNS: Current vital signs are reviewed. Temperature is 97.6, heart rate 88, respiratory rate 17, blood pressure 135/73, mean 93, room-air saturation 94%. GENERAL APPEARANCE: Appears in no acute distress. HEENT: Examination is grossly unremarkable. Mucous membranes are moist. No supplemental oxygen. NECK: Supple. Full range of motion. No adenopathy. Neck veins are flat. CARDIOVASCULAR: Examination reveals regular rhythm and rate. S1, S2 normal. There is no S3, S4 or murmur. LUNGS: Lungs reveal diminished breath sounds, particularly on the left side. A few scattered rhonchi are noted. Right lung is mostly clear. No crackles. There is a bandage on the left lateral chest area. ABDOMEN: Soft. EXTREMITIES: Intact. No cyanosis, clubbing or edema. SKIN: Without rash. NEUROLOGIC: Neurologic examination is brief but nonfocal. LAB DATA: Reviewed. White count 27.4, hemoglobin 9.4, hematocrit 30.2, platelet count 581,000. Sodium 132, potassium 4, chloride 94, CO2 28, anion gap 10. BUN and creatinine were 7 and 0.58. Current microbiology is negative. Previous microbiology from the wound site on February 02 shows evidence of Actinomyces odontolyticus. Chest CT done today at 1430 hours shows a multiloculated collection, some of which contain internal foci of air seen throughout the left chest and from the lung apex to the left lung base consistent with underlying infection. There are also scattered areas of consolidation with compressive atelectasis and pleural effusion. In addition, the left-sided posterior chest wall demonstrates muscular edema and fluid collections seen, which may reflect continuous spread of infection with increasing ground-glass infiltrates throughout the right lung, likely reflecting also an acute inflammatory process. CURRENT MEDICATIONS: Current medications are reviewed. The patient is back on different antibiotics now, including cefepime, Flagyl and vancomycin. ASSESSMENT: 1. Acute hypoxemic respiratory failure secondary to left-sided tension hydrothorax with some mild shift of the heart, mediastinum to the right. 2. History of [id number]-[id number] lung cancer, poorly differentiated squamous cell carcinoma, which was perforating the visceral pleura of the left lung, status post left anterior mediastinotomy and lymph node biopsy on December 02, 2019, with subsequent robotically assisted left upper lobectomy and mediastinal lymph node dissection and bronchoscopy for mucus plugging. 3. Recent admission in January for empyema of the left lung secondary to Actinomyces odontolyticus, status post left thoracotomy, total lung decortication, pectoralis major pedicle flap transposition into the left pleural space, and cryoablation of the intercostal nerves. 4. Persistent atelectasis of the left lower lobe in addition to multiple pockets of pus within the left hemithorax, status post prior bronchoscopy on march 01, 2020. 5. Complete obstruction of the left lower lobe bronchus due to extrinsic compression. 6. History of 30 pack-year tobacco use. 7. History of hypertension. 8. Hyperlipidemia. 9. Diabetes. 10.History of depression. PLAN: Previously the patient was discharged on oral Flagyl and IV Rocephin. She is currently on cefepime, vancomycin and Flagyl. Additional recommendations and suggestions are forthcoming. Await cardiothoracic input. CT scan was done today. No additional recommendations are made. Surprisingly, the patient clinically looks well. MMODL / IJN: [id number] /
[2020-03-09 16:59] LABS: Glucose,Whole Blood 177 mg/dL (75-99)
--- NOTE | 2020-03-09 19:50 | PN ---
PROGRESS NOTE DATE OF SERVICE: 03/09/2020 REASON FOR FOLLOWUP: Left-sided empyema. INTERVAL HISTORY: The patient is currently afebrile. The patient is breathing comfortably. The left-sided chest pain is currently controlled. The patient mentioned she did have an aspirate from the left chest which was mostly bloody. No nausea, no vomiting, no abdominal pain or diarrhea. PHYSICAL EXAMINATION: Blood pressure 137/87 with a pulse of 77, temperature 97.5. She is 97% on room air. General description is a middle-aged female up in the bed in no distress. RESPIRATORY SYSTEM: Unlabored breathing with decreased breath sounds at the base. No wheeze. HEART: S1, S2. Regular rate and rhythm. ABDOMEN: Soft. No tenderness. LABS/IMAGING: Hemoglobin 9.4, white count 7.4, creatinine 0.58. Urine did show yeast. The patient had a CT of the chest which shows multi-loculated collection, some of which contain internal foci for the left chest consistent with underlying infection with some extension to the muscular area with some muscle edema. DIAGNOSTIC IMPRESSION AND PLAN: Patient with left-sided empyema, status post thoracotomy in position. This patient is now admitted to hospital with left-sided tension hydrothorax with some shift. The patient may benefit from surgical exploration in view of the CT finding with worsening of the white count. Antibiotic will be switched over to cefepime and vancomycin and we will wait for these cultures to finalize. Continue with supportive care. MMODL / IJN: [id number] /
[2020-03-09] MEDS: CEFEPIME 2 GM in SODIUM CHLORIDE 0.9% 100 ML IVPB SCH (20:51)
[2020-03-09] MEDS: ONDANSETRON 4 MG/2 ML VIAL IVP PRN (20:51)
[2020-03-09 20:55] LABS: Glucose,Whole Blood 128 mg/dL (75-99)
[2020-03-10] MEDS: metroNIDAZOLE 500 MG TAB PO SCH ×5 (01:22→22:59)
[2020-03-10] MEDS: MORPHINE SULFATE 4 MG/ML SYRINGE IV PRN ×4 (01:22→18:53)
[2020-03-10] MEDS: ACETAMINOPHEN TAB 500 MG TAB PO PRN ×4 (03:08→21:30)
[2020-03-10] MEDS: VANCOMYCIN 1,000 MG in SODIUM CHLORIDE 0.9% 250 ML IVPB SCH ×3 (05:39→23:02)
[2020-03-10 06:45] LABS: Glucose,Whole Blood 126 mg/dL (75-99)
[2020-03-10] MEDS: ALBUTEROL NEBULIZED 2.5 MG/3 ML INHALATION PRN ×2 (07:20→11:12)
[2020-03-10] MEDS: hydrALAZINE HCL 50 MG TAB PO SCH ×5 (07:45→21:28)
[2020-03-10 08:20] LABS: Anisocytosis Slight; Basophils # (A) 0.1 k/uL (0-0.2); Basophils % (A) 0 %; Eosinophils # (A) 0.2 k/uL (0-0.7); Eosinophils % (A) 1 %; HCT 30.1 % (34.0-46.0); HGB 9.5 gm/dL (11.4-16.0); Hypochromasia Moderate; Lymphocytes # (A) 1.2 k/uL (1.0-4.8); Lymphocytes % (A) 5 %; MCH 27.6 pg (25.0-35.0); MCHC 31.5 g/dL (31.0-37.0); MCV 87.6 fL (80.0-100.0); Mean Platelet Volume 7.6; Monocytes # (A) 0.6 k/uL (0-1.0); Monocytes % (A) 2 %; Neutrophils # (A) 23.4 k/uL (1.3-7.7); Neutrophils % (A) 90 %; Platelet Count 577 k/uL (150-450); RBC 3.43 m/uL (3.80-5.40); RDW 16.3 % (11.5-15.5); WBC 25.9 k/uL (3.8-10.6)
[2020-03-10 08:32] LABS: African American GFR (CKD) >90 (>60 ml/min/1.73 sqM); Anion Gap 12 mmol/L; Blood Urea Nitrogen 6 mg/dL (7-17); Calcium 8.5 mg/dL (8.4-10.2); Carbon Dioxide 25 mmol/L (22-30); Chloride 97 mmol/L (98-107); Glucose 108 mg/dL (74-99); Non-African American GFR(CKD) >90 (>60 ml/min/1.73 sqM); Potassium 3.6 mmol/L (3.5-5.1); Sodium 134 mmol/L (137-145)
--- NOTE | 2020-03-10 09:01 | P.PCN ---
Date of Procedure: 03/09/20 Preoperative Diagnosis: Subcutaneous Phlegmon, left posterior thoracic Postoperative Diagnosis: Same Procedure(s) Performed: Fluid aspiration for culture Anesthesia: none Surgeon: Nathan Leroy Pathology: other (Culture sent) Description of Procedure: A 15-gauge needle on a 60 mL syringe was inserted through a previous nonhealed chest tube hole in to the subcutaneous fluid pocket and 60 mL of fluid were aspirated for culture. The fluid had artery been leaking intermittently through this hole.
[2020-03-10] MEDS: PANTOPRAZOLE 40 MG TABLET PO SCH (09:07)
[2020-03-10] MEDS: CEFEPIME 2 GM in SODIUM CHLORIDE 0.9% 100 ML IVPB SCH ×2 (09:07→21:29)
[2020-03-10] MEDS: ASCORBIC ACID 500 MG TAB PO SCH (09:07)
[2020-03-10] MEDS: DULoxetine HCL 60 MG CAPSULE.DR PO SCH (09:08)
[2020-03-10] MEDS: BISOPROLOL 5 MG TAB PO SCH (09:08)
[2020-03-10] MEDS: FUROSEMIDE 20 MG TAB PO SCH (09:09)
[2020-03-10] MEDS: amLODIPine 10 MG TAB PO SCH (09:09)
[2020-03-10] MEDS: metFORMIN 500 MG TAB PO SCH ×2 (09:09→21:29)
[2020-03-10] MEDS: VALSARTAN 160 MG TAB PO SCH (09:09)
[2020-03-10] MEDS ORDERED: IPRATROPIUM-ALBUTEROL 3 ML NEB INHALATION PRN (11:41)
[2020-03-10 11:50] LABS: Glucose,Whole Blood 121 mg/dL (75-99)
[2020-03-10] MEDS: IPRATROPIUM-ALBUTEROL 3 ML NEB INHALATION SCH ×3 (13:19→20:16)
--- NOTE | 2020-03-10 15:06 | P.PN ---
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 Denies fever, chills. Denies drainage. Chest x-ray reported worsening left-sided tension hydrothorax with mild shift of the heart and mediastinum to the right side, almost complete opacification left hemothorax, small fluid level in the left lung apex, minimal infiltrate lateral right lower lobe. EKG reported Normal sinus rhythm, anterior infarct, age undetermined. Troponin less than 0.012.UA reporting large leukocytes, no nitrates 29 WBCs. Afebrile, VSS, maintaining O2 sats in the 90s on 2 L nasal cannula. Rocephin and Flagyl resumed. 03/09/2020 maintained on IV antibiotics of Rocephin and Flagyl via PICC line. Afebrile, WBC worsening, up to 27.4. Urine culture reporting yeast species. Blood cultures reports no growth at 24 hours .Left chest wall pain uncontrolled, increasing on Tylenol, received morphine. Hemoglobin 9.4. Evaluated by cardiothoracic surgery,CT pending. Prior dressing with small amount of sanguinous drainage. Aspirated superficial abscess of the left lateral side of back, at bedside, serosanguineous drainage, sent for culture, silver rope inserted with ABD Dressing applied. Tolerated procedure well.VSS. Attending O2 sats in the 90s on 2 L nasal cannula. Incentive spirometer up to 750. 03/10/[address] reporting stable multi-loculated collections some containing internal foci of air seen throughout the left chest from the lung apex to the left lung base consistent with underlying infection, scattered areas of consolidation with compressive atelectasis and pleural effusion, left-sided posterior chest wall muscular edema, fluid collection possibly reflecting contiguous spread of infection, increasing groundglass infiltrates throughout the right lung likely acute inflammatory process. Increased milky serosanguineous drainage from the left chest wall with dressing changed this morning 3. Cultures pending. Afebrile, WBC 25.9. IV antibiotics adjusted to cefepime and vancomycin as per infectious disease. Denies abdominal pain, no nausea or vomiting. Pain currently controlled. Objective - Vital Signs Vital signs: Vital Signs Temp 98.0 F 03/10/20 07:51 Pulse 85 03/10/20 07:51 Resp 16 03/10/20 09:06 BP 159/75 03/10/20 07:51 Pulse Ox 96 03/10/20 09:06 Intake & Output 03/09/20 03/10/20 03/10/20 18:59 06:59 18:59 Other: Voiding Method Toilet # Voids 1 1 - Exam GENERAL: Sitting up in bed, no acute distress NECK: No JVD. No thyroid enlargement. No LNs CARDIOVASCULAR: S1, S2 regular. No murmur RESPIRATION: Nonlabored. Breath sounds diminished. Coarse dullness of the left l obe. ABDOMEN: Soft, nontender . No guarding. no masses palpable. Positive Bowel sounds. LEGS: No edema, wearing JOHAN hose. no swelling. No clubbing, no cyanosis PSYCHIATRY: Alert and oriented X3, mood and affect normal. NERVOUS SYSTEM: Cranial N 2-12 grossly normal. Moves all 4 limbs. No focal deficits. Strength and sensation grossly intact. Skin: no rashes.Left chest -posterior/lateral large subcutaneous fluid filled abscess, prior surgical incision well approximated, 3 puncture wounds from prior chest tubes scabbed. Increased milky ,serosanguineous drainage. - Labs CBC & Chem 7: 03/10/20 07:53 03/10/20 07:53 Labs: Abnormal Lab Results - Last 24 Hours (Table) 03/09/20 03/09/20 03/10/20 Range/Units 16:58 20:54 06:44 WBC (3.8-10.6) k/uL RBC (3.80-5.40) m/uL Hgb (11.4-16.0) gm/dL Hct (34.0-46.0) % RDW (11.5-15.5) % Plt Count (150-450) k/uL Neutrophils # (1.3-7.7) k/uL Sodium (137-145) mmol/L Chloride (98-107) mmol/L BUN (7-17) mg/dL Glucose (74-99) mg/dL POC Glucose (mg/dL) 177 H 128 H 126 H (75-99) mg/dL 03/10/20 03/10/20 Range/Units 07:53 07:53 WBC 25.9 H (3.8-10.6) k/uL RBC 3.43 L (3.80-5.40) m/uL Hgb 9.5 L (11.4-16.0) gm/dL Hct 30.1 L (34.0-46.0) % RDW 16.3 H (11.5-15.5) % Plt Count 577 H (150-450) k/uL Neutrophils # 23.4 H (1.3-7.7) k/uL Sodium 134 L (137-145) mmol/L Chloride 97 L (98-107) mmol/L BUN 6 L (7-17) mg/dL Glucose 108 H (74-99) mg/dL POC Glucose (mg/dL) (75-99) mg/dL Microbiology - Last 24 Hours (Table) 03/09/20 12:25 Gram Stain - Preliminary Aspirate Body Fluid Culture - Preliminary 03/07/20 19:15 Urine Culture - Final Urine,Clean Catch Juanita glabrata 03/07/20 20:49 Blood Culture - Preliminary Blood No Growth after 48 hours Assessment and Plan Assessment: -Worsening Left-sided tension hydrothorax with mild shift of the heart and mediastinum to the right. CT reporting significant underlying infection of chest. -Acute hypoxic respiratory failure secondary to the above --Poorly differentiated squamous cell CA, left upper lobe Current Visit: Yes Status: Acute Code(s): C34.90 - MALIGNANT NEOPLASM OF UNSP PART OF UNSP BRONCHUS OR LUNG SNOMED Code(s): 503433200 -- S/P lobectomy of the left upper lung , 12/31/2019 Current Visit: Yes Status: Chronic Priority: Low Code(s): Z90.2 - ACQUIRED ABSENCE OF LUNG [PART OF] SNOMED Code(s): 49250468019111394 -Recent Empyema of the left pleural space ,status post left thoracotomy, total lung decortication, pectoralis major pedicle flap into left pleural space, cryoablation of the intercostal nerves. Cultures reported actinomyces. Current Visit: Yes Status: Acute Priority: High Code(s): J94.8 - OTHER SPECIFIED PLEURAL CONDITIONS SNOMED Code(s): 40896429 -Chronic CHF exacerbation, diastolic dysfunction - Essential (primary) hypertension Current Visit: No Status: Chronic Priority: Medium Code(s): I10 - ESSENTIAL (PRIMARY) HYPERTENSION SNOMED Code(s): 62519309 -Hypokalemia - hypomagnesemia - Hyponatremia Current Visit: Yes Status: Acute Code(s): E87.1 - HYPO-OSMOLALITY AND HYPONATREMIA SNOMED Code(s): 17581066 -Major depressive disorder, recurrent, moderate Current Visit: No Status: Acute Code(s): F33.1 - MAJOR DEPRESSIVE DISORDER, RECURRENT, MODERATE SNOMED Code(s): 469172705 -Type 2 diabetes mellitus Current Visit: No Status: Acute Code(s): E11.9 - TYPE 2 DIABETES MELLITUS WITHOUT COMPLICATIONS SNOMED Code(s): 700372803 - Fibromyalgia Current Visit: Yes Status: Acute Code(s): M79.7 - FIBROMYALGIA SNOMED Code(s): 405279226 - hypoproteinemia - Paroxysmal atrial fibrillation, Eliquis on hold Current Visit: Yes Status: Chronic Priority: Medium Code(s): I48.0 - PAROXYSMAL ATRIAL FIBRILLATION SNOMED Code(s): 620156199 -Prior nicotine dependence Plan: Continue on current medication regime ,monitoring and symptomatic treatment. Further recommendations from cardiothoracic surgery pending. IV antibiotics adjusted/maintained as per ID. Cultures pending. Prognosis guarded, multiple complex medical issues. The impression and plan of care has been dictated as directed. : I performed a history and examination of this patient, discussed the same with the dictator. I agree with the dictator's note ,documented as a scribe. Any additional findings or plans will be noted.
--- NOTE | 2020-03-10 15:10 | P.PN ---
Subjective Progress Note Date: 03/10/20 Principal diagnosis: Acute hypoxemic respiratory failure secondary to left-sided tension hydrothorax with some mild shift of the heart, mediastinum to the right. 03/10/2020, patient is seen in follow-up on medical surgical floor. She is calm and comfortable, appears to be in no acute distress, she is on 3 L of oxygen the pulse ox 96%, earlier this morning patient was noted to be desaturating on 2 L and her FiO2 was increased to 3 L. She is having some increased cough and congestion and she is asking if there is anything she can take to help her with that, we will had some breathing treatments, and will add some Mucinex. She remains on antibiotics in the form of cefepime, vancomycin and Flagyl. Yesterday CT of the chest with contrast showed essentially stable multiloculated collections some of which contain internal 4 cm throughout the left chest from the lung apex through the left lung base consistent with underlying infection, there were scattered areas of consolidation with compressive atelectasis and pleural effusion. Left-sided posterior chest wall shows muscular edema and fluid collection which may reflect continue spreading of infection, and increasing redness infiltrates throughout the right lung that could be reflecting acute inflammatory process. ID service is following. She has a fluid aspiration of the subcutaneous phlegmon in the left posterior thoracic wall. Fluid was sent for culture. Fluid culture is pending at this time, Gram stain showed no organisms at the 24-hour colton. She has been afebrile, hemodynamically she is been stable, lung sounds reveal some diminished breath sounds on the left, with good aeration of the right lung. These labs have been reviewed, white blood cell count is 25.9, hemoglobin of 9.5, sodium of 134, potassium is 3.6, chloride is 97, CO2 is 25, BUN 6, creatinine 0.53 Objective - Vital Signs Vital signs: Vital Signs Temp 98.0 F 03/10/20 07:51 Pulse 76 03/10/20 11:26 Resp 16 03/10/20 09:06 BP 159/75 03/10/20 07:51 Pulse Ox 96 03/10/20 09:06 Intake & Output 03/09/20 03/10/20 03/10/20 18:59 06:59 18:59 Intake Total 350 Balance 350 Intake: Intake, IV Titration 350 Amount Cefepime 2 gm In Sodium 100 Chloride 0.9% 100 ml @ 200 mls/hr IVPB Q12HR [facility] Rx#:[id number] Vancomycin 1,000 mg In 250 Sodium Chloride 0.9% 250 ml @ 125 mls/hr IVPB Q8H [facility] Rx#:[id number] Other: Voiding Method Toilet # Voids 1 1 1 - Exam GENERAL EXAM: Alert, very pleasant 55-year-old white female, on 3 L of oxygen and the pulse ox of 96% comfortable in no apparent distress. HEAD: Normocephalic/atraumatic. EYES: Normal reaction of pupils, equal size. Conjunctiva pink, sclera white. NOSE: Clear with pink turbinates. THROAT: No erythema or exudates. NECK: No masses, no JVD, no thyroid enlargement, no adenopathy. CHEST: No chest wall deformity. Symmetrical expansion. LUNGS: Very diminished breath sounds on the left side, with good aeration of the right lung CVS: Regular rate and rhythm, normal S1 and S2, no gallops, no murmurs, no rubs ABDOMEN: Soft, nontender. No hepatosplenomegaly, normal bowel sounds, no guarding or rigidity. EXTREMITIES: No clubbing, no edema, no cyanosis, 2+ pulses and upper and lower extremities. MUSCULOSKELETAL: Muscle strength and tone normal. SPINE: No scoliosis or deformity SKIN: No rashes CENTRAL NERVOUS SYSTEM: Alert and oriented -3. No focal deficits, tone is normal in all 4 extremities. PSYCHIATRIC: Alert and oriented -3. Appropriate affect. Intact judgment and insight. - Labs CBC & Chem 7: 03/10/20 07:53 03/10/20 07:53 Labs: Abnormal Lab Results - Last 24 Hours (Table) 03/09/20 03/09/20 03/10/20 Range/Units 16:58 20:54 06:44 WBC (3.8-10.6) k/uL RBC (3.80-5.40) m/uL Hgb (11.4-16.0) gm/dL Hct (34.0-46.0) % RDW (11.5-15.5) % Plt Count (150-450) k/uL Neutrophils # (1.3-7.7) k/uL Sodium (137-145) mmol/L Chloride (98-107) mmol/L BUN (7-17) mg/dL Glucose (74-99) mg/dL POC Glucose (mg/dL) 177 H 128 H 126 H (75-99) mg/dL 03/10/20 03/10/20 03/10/20 Range/Units 07:53 07:53 11:49 WBC 25.9 H (3.8-10.6) k/uL RBC 3.43 L (3.80-5.40) m/uL Hgb 9.5 L (11.4-16.0) gm/dL Hct 30.1 L (34.0-46.0) % RDW 16.3 H (11.5-15.5) % Plt Count 577 H (150-450) k/uL Neutrophils # 23.4 H (1.3-7.7) k/uL Sodium 134 L (137-145) mmol/L Chloride 97 L (98-107) mmol/L BUN 6 L (7-17) mg/dL Glucose 108 H (74-99) mg/dL POC Glucose (mg/dL) 121 H (75-99) mg/dL Microbiology - Last 24 Hours (Table) 03/09/20 12:25 Gram Stain - Preliminary Aspirate Body Fluid Culture - Preliminary 03/07/20 19:15 Urine Culture - Final Urine,Clean Catch Juanita glabrata 03/07/20 20:49 Blood Culture - Preliminary Blood No Growth after 48 hours Assessment and Plan Plan: Assessment: #1. Left-sided chest pain, related to left-sided tension hydrothorax with some mild shift of the heart, and shift of the mediastinum to the right #2. History of non-small cell lung cancer, poorly differentiated squamous cell carcinoma perforating the visceral pleura of the left lung, status post left anterior mediastinum estimate and lymph node biopsy on 2019 with subsequent robotic-assisted left upper lobectomy and mediastinal lymph node dissection and bronchoscopy for mucous plugging on 12/31/2019 #3. Recent admission in January for empyema of the left lung secondary to Actinomycese odontolyticus, status post left thoracotomy, total lung decortication, pectoralis major pedicle flap transposition into the left pleural space, and cryoablation of the intercostal nerves #4. Persistent atelectasis of the left lower lobe in addition to multiple pockets of pus within the left hemithorax status post prior bronchoscopy on 02/11 #5. Complete obstruction of the left lower lobe bronchus due to extrinsic compression #6. History of [id number] tobacco use #7. History of hypertension #8. Hyperlipidemia #9. Diabetes mellitus type 2 #10. History of depression Plan: ID service recommendations, currently she is on cefepime and vancomycin and Flagyl. Patient had some fluid aspirated from the left chest phlegmon and fluid culture is still pending, Gram stain has shown no growth at the 24-hour colton, she's been afebrile, hemodynamically she is stable, she is having some increased cough and congestion, and we'll add some Mucinex and breathing treatments. We'll continue to follow I performed a history & physical examination of the patient and discussed their management with my nurse practitioner, Bria Cid. I reviewed the nurse practitioner's note and agree with the documented findings and plan of care. Lung sounds are positive for diminished breath sounds on the left side. The findings and the impression was discussed with the patient. I attest to the documentation by the nurse practitioner. Time with Patient: Less than 30
[2020-03-10 16:51] LABS: Glucose,Whole Blood 129 mg/dL (75-99)
--- NOTE | 2020-03-10 17:05 | P.PN ---
Subjective Progress Note Date: 03/10/20 Principal diagnosis: Status post left upper lobectomy and history of empyema left chest with culture showing actinomyces odontolyticusstatus, status post left thoracotomy with total lung decortication, pectoralis major radical flap transposition into the left pleural space. This is a 55-year-old female patient who follows on an outpatient basis with Dr. Nathan Leroy. She is a past medical history significant for poorly differentiated squamous cell carcinoma, status post left upper lobectomy, empyema left chest with culture showing actinomyces odontolyticusstatus, status post left thoracotomy with total lung decortication, pectoralis major radical flap transposition into the left pleural space, hypertension, hyperlipidemia, chronic tobacco, type 2 diabetes mellitus, cervical cancer status post hysterectomy, anxiety and bipolar disorder. She presented to the emergency department here at [facility] yesterday with complaints of increasing shortness of breath and some recurrent left chest wall pain. She also reports she was coughing up blood. Denies any recent fever, chills, nausea, vomiting, or diarrhea. Due to her recent cultures positive for actinomyces odontolyticus she has been receiving outpatient antibiotic treatments maintained on IV Rocephin and oral Flagyl per management by infectious disease. On 03/01/2020 she underwent a bronchoscopy completed by Dr. Luque and was found to have a normal stump to the left upper chest and near complete obstruction of the left lower lobe bronchus, mainly due to extrinsic compression. The chest x-ray completed on presentation showed a left sided tension hydrothorax with some mild shift of the heart and mediastinum to the right. 12-lead EKG demonstrated normal sinus rhythm heart rate 99 BPM. Due to the patient's recent left upper lobectomy, and thoracotomy with decortication a consult was placed to Dr. Lars Alexandre from cardiothoracic surgery for further evaluation and treatment recommendations. The patient was seen today in follow-up on 03/10/2020 at her bedside on the fourth floor medical surgical unit. She is resting in bed comfortably and is in no acute distress. She is awake, alert and oriented 3 and is hemodynamically stable. The patient reports she feels somewhat improved today in regards to her left chest wall pain and denies any complaints of shortness of breath. She remains on antibiotic coverage which were changed yesterday by infectious disease and continues on cefepime and vancomycin IV piggyback and also Flagyl by mouth. She remains afebrile the last 24 hours. Her left chest wall fluctuant superficial mass was drained yesterday by primary care medicine Dr. Leroy. Cultures are pending. Left chest wall silver wick dressing was left in place and the patient reports it was changed 3 times throughout the consulting solution director. Laboratory results show her WBCs are trending down today and are 25.9, hemoglobin is 9.5, platelets 577, BUN 6 and creatinine 0.53. A computed tomography scan of her chest was completed yesterday which shows stable multi loculated collections some of which contained internal foci of air seen throughout the left chest from the lung apex through the left lung base consistent with underlying infection, scattered areas of consolidation with compressive atelectasis and pleural effusion, left-sided posterior chest wall mu scular edema and fluid collection, and increasing ground glass infiltrates throughout the right lung likely reflecting acute inflammatory process. Objective - Vital Signs Vital signs: Vital Signs Temp 97.6 F 03/10/20 15:00 Pulse 78 03/10/20 16:28 Resp 18 03/10/20 16:28 BP 137/73 03/10/20 15:00 Pulse Ox 97 03/10/20 15:00 Intake & Output 03/09/20 03/10/20 03/10/20 18:59 06:59 18:59 Intake Total 350 Balance 350 Intake: Intake, IV Titration 350 Amount Cefepime 2 gm In Sodium 100 Chloride 0.9% 100 ml @ 200 mls/hr IVPB Q12HR [facility] Rx#:[id number] Vancomycin 1,000 mg In 250 Sodium Chloride 0.9% 250 ml @ 125 mls/hr IVPB Q8H [facility] Rx#:[id number] Other: Voiding Method Toilet # Voids 1 1 1 - Exam This is a pleasant 55-year-old female patient who is resting comfortably in bed on the fourth floor medical surgical unit. She is awake, alert and oriented 3 and is in no acute apparent distress. She remained hemodynamically stable and afebrile the last 24 hours. Oxygen saturation are 9 97% on room air and she is achieving 750 mL on her incentive spirometry. - Constitutional General appearance: Present: cooperative, no acute distress, thin - EENT Eyes: Present: PERRLA, normal appearance. Absent: scleral icterus ENT: Present: hearing grossly normal - Neck Details: Neck is supple, no JVD. - Respiratory Details: Lung sounds essentially clear to her right lobes, diminished throughout her left lobe, no wheezes, crackles or rhonchi. Respirations are symmetrical and nonlabored. Oxygen saturation is 97% on room air. Achieving 750 mL on her incentive spirometry. - Cardiovascular Details: Regular rhythm and rate. S1 and S2 present, negative for S3, gallop or murmur. - Gastrointestinal Gastrointestinal Comment(s): Abdomen is soft, nontender and nondistended. Active bowel sounds present in all 4 abdominal quadrants. No guarding or rigidity. No organomegaly appreciated. - Integumentary Integumentary Comment(s): Skin is warm and dry. Positive clubbing. Left chest wall fluctuant mass with silver wick drain in place with thin serous drainage. Left chest thoracotomy incision is clean, dry and approximated. No redness. - Neurologic Neurologic: Present: CNII-XII intact - Musculoskeletal Musculoskeletal: Present: gait normal, strength equal bilaterally - Psychiatric Psychiatric: Present: A&O x's 3, appropriate affect, intact judgment & insight - Allied health notes Allied health notes reviewed: nursing - Labs CBC & Chem 7: 03/10/20 07:53 03/10/20 07:53 Labs: Abnormal Lab Results - Last 24 Hours (Table) 03/09/20 03/09/20 03/10/20 Range/Units 16:58 20:54 06:44 WBC (3.8-10.6) k/uL RBC (3.80-5.40) m/uL Hgb (11.4-16.0) gm/dL Hct (34.0-46.0) % RDW (11.5-15.5) % Plt Count (150-450) k/uL Neutrophils # (1.3-7.7) k/uL Sodium (137-145) mmol/L Chloride (98-107) mmol/L BUN (7-17) mg/dL Glucose (74-99) mg/dL POC Glucose (mg/dL) 177 H 128 H 126 H (75-99) mg/dL 03/10/20 03/10/20 03/10/20 Range/Units 07:53 07:53 11:49 WBC 25.9 H (3.8-10.6) k/uL RBC 3.43 L (3.80-5.40) m/uL Hgb 9.5 L (11.4-16.0) gm/dL Hct 30.1 L (34.0-46.0) % RDW 16.3 H (11.5-15.5) % Plt Count 577 H (150-450) k/uL Neutrophils # 23.4 H (1.3-7.7) k/uL Sodium 134 L (137-145) mmol/L Chloride 97 L (98-107) mmol/L BUN 6 L (7-17) mg/dL Glucose 108 H (74-99) mg/dL POC Glucose (mg/dL) 121 H (75-99) mg/dL 03/10/20 Range/Units 16:49 WBC (3.8-10.6) k/uL RBC (3.80-5.40) m/uL Hgb (11.4-16.0) gm/dL Hct (34.0-46.0) % RDW (11.5-15.5) % Plt Count (150-450) k/uL Neutrophils # (1.3-7.7) k/uL Sodium (137-145) mmol/L Chloride (98-107) mmol/L BUN (7-17) mg/dL Glucose (74-99) mg/dL POC Glucose (mg/dL) 129 H (75-99) mg/dL Microbiology - Last 24 Hours (Table) 03/09/20 12:25 Gram Stain - Preliminary Aspirate Body Fluid Culture - Preliminary 03/07/20 19:15 Urine Culture - Final Urine,Clean Catch Juanita glabrata 03/07/20 20:49 Blood Culture - Preliminary Blood No Growth after 48 hours - Imaging and Cardiology CT scan - chest: report reviewed, image reviewed Assessment and Plan Assessment: 1. 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 History of empyema left lung with cultures positive for actinomyces odontolyticus, status post left thoracotomy, total lung decortication, pectoralis major pedicle flap transposition into the left pleural space, cryoablation of the intercostal nerves on 02/03/2020. Maintained on oral Flagyl and IV ceftriaxone in the outpatient setting 3. Subcutaneous phlegmon, left posterior chest wall 4. History of hypertension 5. History of hyperlipidemia 6. Type 2 diabetes mellitus 7. Remote history of tobacco dependence 8. History of cervical cancer status post hysterectomy 9. History of anxiety/bipolar disorder 10. History of paroxysmal atrial fibrillation 11. History of fibromyalgia Plan: 1. Continue dressing changes to her left chest. Cultures of body fluid from the left chest pending. 2. Continue to encourage use of her incentive spirometry 10 times every hour while awake. 3. Antibiotic management per infectious disease. WBCs 25.9 today, she has been afebrile last 24 hours. 4. Medical management and other comorbidities per primary care service. 5. Encourage increase activity as tolerated. Out of bed for all meals. 6. Continue to monitor chest x-rays. 7. More recommendations to follow based on patient's clinical course. Time with Patient: Less than 30
[2020-03-10 20:45] LABS: Glucose,Whole Blood 139 mg/dL (75-99)
[2020-03-10] MEDS ORDERED: VANCOMYCIN TROUGH DUE 1 EACH MISC MISCELLANE ONE (21:00)
[2020-03-10] MEDS: guaiFENesin 600 MG TABLET.ER PO SCH (21:28)
[2020-03-10] MEDS: ONDANSETRON 4 MG/2 ML VIAL IVP PRN (21:45)
--- NOTE | 2020-03-10 23:34 | PN ---
PROGRESS NOTE DATE OF SERVICE: 03/10/2020 REASON FOR FOLLOWUP: Left-sided empyema. INTERVAL HISTORY: The patient is currently afebrile. The patient is breathing comfortably. The left-sided chest pain is currently controlled. She did have a cough, but though no worsening sputum. No vomiting or any diarrhea. PHYSICAL EXAMINATION: Blood pressure is 137/73 with a pulse of 75, temperature 97.6. She is 97% on room air. General description is a middle-aged female up in the bed in no distress. RESPIRATORY SYSTEM: Unlabored breathing, decreased breath sounds at the bases, no wheeze. HEART: S1, S2. Regular rate and rhythm. ABDOMEN: Soft, no tenderness. LABS: Hemoglobin 9.4, white count 5.9, BUN of 6, creatinine 0.53. The chest fluid aspirate cultures so far pending. DIAGNOSTIC IMPRESSION AND PLAN: Patient presented to hospital with left-sided chest pain and shortness of breath, more of an acute in onset in this patient who did have a history of empyema requiring decortication and pectoralis major muscle flap. The patient is status post aspirate of the area. Those cultures will be followed. Continue on vancomycin and cefepime and vancomycin and adjusting antibiotic further based on the culture report. MMODL / IJN: [id number] /
[2020-03-11] MEDS: MORPHINE SULFATE 4 MG/ML SYRINGE IV PRN ×3 (00:58→21:06)
[2020-03-11] MEDS: ACETAMINOPHEN TAB 500 MG TAB PO PRN ×3 (03:17→17:51)
[2020-03-11] MEDS: VANCOMYCIN 1,000 MG in SODIUM CHLORIDE 0.9% 250 ML IVPB SCH ×3 (06:02→22:45)
[2020-03-11 07:08] LABS: Glucose,Whole Blood 120 mg/dL (75-99)
[2020-03-11] MEDS: CEFEPIME 2 GM in SODIUM CHLORIDE 0.9% 100 ML IVPB SCH ×2 (07:27→21:00)
[2020-03-11] MEDS: guaiFENesin 600 MG TABLET.ER PO SCH ×2 (07:29→20:59)
[2020-03-11] MEDS: metroNIDAZOLE 500 MG TAB PO SCH ×3 (07:30→23:29)
[2020-03-11] MEDS: PANTOPRAZOLE 40 MG TABLET PO SCH (07:31)
[2020-03-11] MEDS: BISOPROLOL 5 MG TAB PO SCH (07:31)
[2020-03-11] MEDS: VALSARTAN 160 MG TAB PO SCH (07:32)
[2020-03-11] MEDS: FUROSEMIDE 20 MG TAB PO SCH (07:33)
[2020-03-11] MEDS: hydrALAZINE HCL 50 MG TAB PO SCH ×4 (07:33→20:58)
[2020-03-11] MEDS: DULoxetine HCL 60 MG CAPSULE.DR PO SCH (07:33)
[2020-03-11] MEDS: metFORMIN 500 MG TAB PO SCH ×2 (07:33→20:59)
[2020-03-11] MEDS: ASCORBIC ACID 500 MG TAB PO SCH (07:34)
[2020-03-11] MEDS: amLODIPine 10 MG TAB PO SCH (07:34)
[2020-03-11] MEDS: ONDANSETRON 4 MG/2 ML VIAL IVP PRN ×2 (07:36→21:06)
[2020-03-11 07:44] LABS: Anisocytosis Slight; Basophils # (A) 0.1 k/uL (0-0.2); Basophils % (A) 0 %; Eosinophils # (A) 0.2 k/uL (0-0.7); Eosinophils % (A) 1 %; HCT 28.3 % (34.0-46.0); HGB 8.9 gm/dL (11.4-16.0); Hypochromasia Slight; Lymphocytes # (A) 0.9 k/uL (1.0-4.8); Lymphocytes % (A) 4 %; MCH 27.8 pg (25.0-35.0); MCHC 31.5 g/dL (31.0-37.0); MCV 88.3 fL (80.0-100.0); Mean Platelet Volume 7.5; Monocytes # (A) 0.7 k/uL (0-1.0); Monocytes % (A) 3 %; Neutrophils # (A) 21.1 k/uL (1.3-7.7); Neutrophils % (A) 90 %; Platelet Count 498 k/uL (150-450); RBC 3.21 m/uL (3.80-5.40); RDW 16.6 % (11.5-15.5); WBC 23.4 k/uL (3.8-10.6)
[2020-03-11 08:11] LABS: African American GFR (CKD) >90 (>60 ml/min/1.73 sqM); Anion Gap 11 mmol/L; Blood Urea Nitrogen 7 mg/dL (7-17); Calcium 8.4 mg/dL (8.4-10.2); Carbon Dioxide 25 mmol/L (22-30); Chloride 98 mmol/L (98-107); Glucose 107 mg/dL (74-99); Non-African American GFR(CKD) >90 (>60 ml/min/1.73 sqM); Potassium 3.2 mmol/L (3.5-5.1); Sodium 134 mmol/L (137-145)
[2020-03-11] MEDS: IPRATROPIUM-ALBUTEROL 3 ML NEB INHALATION SCH ×4 (08:21→20:09)
--- NOTE | 2020-03-11 10:03 | P.PN ---
Subjective Progress Note Date: 03/11/20 Principal diagnosis: Status post left upper lobectomy and history of empyema left chest with culture showing actinomyces odontolyticusstatus, status post left thoracotomy with total lung decortication, pectoralis major radical flap transposition into the left pleural space. This is a 55-year-old female patient who follows on an outpatient basis with Dr. Nathan Leroy. She is a past medical history significant for poorly differentiated squamous cell carcinoma, status post left upper lobectomy, empyema left chest with culture showing actinomyces odontolyticusstatus, status post left thoracotomy with total lung decortication, pectoralis major radical flap transposition into the left pleural space, hypertension, hyperlipidemia, chronic tobacco, type 2 diabetes mellitus, cervical cancer status post hysterectomy, anxiety and bipolar disorder. She presented to the emergency department here at [facility] yesterday with complaints of increasing shortness of breath and some recurrent left chest wall pain. She also reports she was coughing up blood. Denies any recent fever, chills, nausea, vomiting, or diarrhea. Due to her recent cultures positive for actinomyces odontolyticus she has been receiving outpatient antibiotic treatments maintained on IV Rocephin and oral Flagyl per management by infectious disease. On 03/01/2020 she underwent a bronchoscopy completed by Dr. Luque and was found to have a normal stump to the left upper chest and near complete obstruction of the left lower lobe bronchus, mainly due to extrinsic compression. The chest x-ray completed on presentation showed a left sided tension hydrothorax with some mild shift of the heart and mediastinum to the right. 12-lead EKG demonstrated normal sinus rhythm heart rate 99 BPM. Due to the patient's recent left upper lobectomy, and thoracotomy with decortication a consult was placed to Dr. Lars Alexandre from cardiothoracic surgery for further evaluation and treatment recommendations. On 03/11/2020 the patient was seen in follow-up at her bedside on the fourth floor medical surgical unit. She is currently resting in bed and is in no apparent acute distress. The patient is awake, alert and oriented 3. Currently denies any complaints of shortness of breath although remains complaining of intermittent left chest wall pain which is being treated with morphine per when necessary orders. She remains on IV cefepime and vancomycin and oral Flagyl for antibiotic coverage which is managed by infectious disease. Oxygen saturation are 99% on 2 L nasal cannula and she is achieving 750-1000 mL on her incentive spirometry. She remains afebrile the last 24 hours. Her left chest wall dressing was removed this morning with some scant serous drainage remaining from the most posterior old chest tube site with a silver with dressing remaining in place. The fluctuant mass to her left chest has been reduced. Objective - Vital Signs Vital signs: Vital Signs Temp 97.7 F 03/11/20 07:00 Pulse 74 03/11/20 08:32 Resp 18 03/11/20 07:00 BP 143/80 03/11/20 07:00 Pulse Ox 99 03/11/20 07:00 Intake & Output 03/10/20 03/11/20 03/11/20 18:59 06:59 18:59 Intake Total 350 Balance 350 Weight 59.421 kg Intake: Intake, IV Titration 350 Amount Cefepime 2 gm In Sodium 100 Chloride 0.9% 100 ml @ 200 mls/hr IVPB Q12HR [facility] Rx#:[id number] Vancomycin 1,000 mg In 250 Sodium Chloride 0.9% 250 ml @ 125 mls/hr IVPB Q8H [facility] Rx#:[id number] Other: Voiding Method Toilet # Voids 1 - Exam This is a pleasant 55-year-old female patient who is resting comfortably in bed on the fourth floor medical surgical unit. She is awake, alert and oriented 3 and is in no acute apparent distress. She remained hemodynamically stable and afebrile the last 24 hours. Oxygen saturation are 99% on 2 L nasal cannula and she is achieving 750-1000 mL on her incentive spirometry. - Constitutional General appearance: Present: cooperative, no acute distress, thin - EENT Eyes: Present: PERRLA, dentition normal, normal appearance. Absent: scleral icterus ENT: Present: hearing grossly normal. Absent: thrush - Neck Details: Neck is supple, no JVD, no lymphadenopathy. - Respiratory Details: Lung sounds essentially clear to her right lobes, diminished to her left lobe. No wheezes, rhonchi or crackles. Respirations are symmetrical and nonlabored. Oxygen saturation is 99% on 2 L nasal cannula. Achieving 750-1000 mL on her incentive spirometry. - Cardiovascular Details: Regular rhythm and rate. S1 and S2 present, negative for S3, gallop or murmur. No edema present. - Gastrointestinal Gastrointestinal Comment(s): Abdomen is soft, nontender and nondistended. Active bowel sounds present all 4 abdominal quadrants. No guarding or rigidity. No organomegaly appreciated. - Integumentary Integumentary Comment(s): Skin is warm and dry. Positive clubbing. Left chest wall fluctuant mass has been reduced with aspiration, silver wick drain in place with scant thin serous drainage. Left chest thoracotomy incision is clean, dry and approximated. No redness. - Neurologic Neurologic: Present: CNII-XII intact - Musculoskeletal Musculoskeletal: Present: gait normal, strength equal bilaterally - Psychiatric Psychiatric: Present: A&O x's 3, appropriate affect, intact judgment & insight - Allied health notes Allied health notes reviewed: nursing - Labs CBC & Chem 7: 03/11/20 07:07 03/11/20 07:07 Labs: Abnormal Lab Results - Last 24 Hours (Table) 03/10/20 03/10/20 03/10/20 Range/Units 11:49 16:49 20:44 WBC (3.8-10.6) k/uL RBC (3.80-5.40) m/uL Hgb (11.4-16.0) gm/dL Hct (34.0-46.0) % RDW (11.5-15.5) % Plt Count (150-450) k/uL Neutrophils # (1.3-7.7) k/uL Lymphocytes # (1.0-4.8) k/uL Sodium (137-145) mmol/L Potassium (3.5-5.1) mmol/L Glucose (74-99) mg/dL POC Glucose (mg/dL) 121 H 129 H 139 H (75-99) mg/dL 03/11/20 03/11/20 03/11/20 Range/Units 06:55 07:07 07:07 WBC 23.4 H (3.8-10.6) k/uL RBC 3.21 L (3.80-5.40) m/uL Hgb 8.9 L (11.4-16.0) gm/dL Hct 28.3 L (34.0-46.0) % RDW 16.6 H (11.5-15.5) % Plt Count 498 H (150-450) k/uL Neutrophils # 21.1 H (1.3-7.7) k/uL Lymphocytes # 0.9 L (1.0-4.8) k/uL Sodium 134 L (137-145) mmol/L Potassium 3.2 L (3.5-5.1) mmol/L Glucose 107 H (74-99) mg/dL POC Glucose (mg/dL) 120 H (75-99) mg/dL Microbiology - Last 24 Hours (Table) 03/07/20 20:49 Blood Culture - Preliminary Blood No Growth after 72 hours 03/09/20 12:25 Gram Stain - Preliminary Aspirate Body Fluid Culture - Preliminary 03/07/20 19:15 Urine Culture - Final Urine,Clean Catch Juanita glabrata Assessment and Plan Assessment: 1. 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 History of empyema left lung with cultures positive for actinomyces odontolyticus, status post left thoracotomy, total lung decortication, pectoralis major pedicle flap transposition into the left pleural space, cryoablation of the intercostal nerves on 02/03/2020. Maintained on oral Flagyl and IV ceftriaxone in the outpatient setting 3. Subcutaneous phlegmon, left posterior chest wall 4. History of hypertension 5. History of hyperlipidemia 6. Type 2 diabetes mellitus 7. Remote history of tobacco dependence 8. History of cervical cancer status post hysterectomy 9. History of anxiety/bipolar disorder 10. History of paroxysmal atrial fibrillation 11. History of fibromyalgia Plan: 1. Continue dressing changes to her left chest. Cultures of body fluid from the left chest pending. Gram stain/body fluid culture showing moderate polymorphonuclear leukocytes with no organisms seen after 24 hours. 2. Continue to encourage use of her incentive spirometry 10 times every hour while awake. 3. Antibiotic management per infectious disease. WBCs 23.4 today which is trending down, she has been afebrile last 24 hours. 4. Medical management and other comorbidities per primary care service. 5. Encourage increase activity as tolerated. Out of bed for all meals. 6. Continue to monitor chest x-rays. 7. Pain control per when necessary orders. Meloxicam 7.5 mg by mouth daily added per Dr. Leroy. 8. More recommendations to follow based on patient's clinical course. Time with Patient: Less than 30
[2020-03-11 11:34] LABS: Glucose,Whole Blood 135 mg/dL (75-99)
[2020-03-11] MEDS: MELOXICAM 7.5 MG TAB PO SCH (12:15)
--- NOTE | 2020-03-11 15:11 | P.PN ---
Subjective Progress Note Date: 03/11/20 Principal diagnosis: Acute hypoxemic respiratory failure secondary to left-sided tension hydrothorax and some mild shift of the heart, mediastinum to the right The patient is seen today 03/10/2020 in follow-up on the regular medical floor. She is currently sitting up in a chair at the bedside. Awake and alert in no acute distress. She still having some left sided chest discomfort as well as some pain in the scapular region. No worsening shortness of breath, cough or congestion she is maintaining good O2 saturations in the mid 90s on 2 L/m per nasal cannula. She's been afebrile. Blood culture reveals no growth to date. Wound culture from the left chest is pending. White count 23.4. Hemoglobin 8.9. Sodium 134. Potassium 3.2. Creatinine 0.58. She is currently on vancomycin, Flagyl, cefepime Objective - Vital Signs Vital signs: Vital Signs Temp 97.8 F 03/11/20 14:36 Pulse 82 03/11/20 14:36 Resp 19 03/11/20 14:36 BP 114/64 03/11/20 14:36 Pulse Ox 97 03/11/20 14:36 Intake & Output 03/10/20 03/11/20 03/11/20 18:59 06:59 18:59 Intake Total 350 Balance 350 Weight 59.421 kg Intake: Intake, IV Titration 350 Amount Cefepime 2 gm In Sodium 100 Chloride 0.9% 100 ml @ 200 mls/hr IVPB Q12HR [facility] Rx#:[id number] Vancomycin 1,000 mg In 250 Sodium Chloride 0.9% 250 ml @ 125 mls/hr IVPB Q8H [facility] Rx#:[id number] Other: Voiding Method Toilet Toilet # Voids 1 3 - Exam GENERAL EXAM: Alert, very pleasant 55-year-old female patient, on 2 L of oxygen and the pulse ox of 97% comfortable in no apparent distress. HEAD: Normocephalic/atraumatic. EYES: Normal reaction of pupils, equal size. Conjunctiva pink, sclera white. NOSE: Clear with pink turbinates. THROAT: No erythema or exudates. NECK: No masses, no JVD, no thyroid enlargement, no adenopathy. CHEST: No chest wall deformity. Symmetrical expansion. LUNGS: Very diminished breath sounds on the left side, with good aeration of the right lung CVS: Regular rate and rhythm, normal S1 and S2, no gallops, no murmurs, no rubs ABDOMEN: Soft, nontender. No hepatosplenomegaly, normal bowel sounds, no guarding or rigidity. EXTREMITIES: No clubbing, no edema, no cyanosis, 2+ pulses and upper and lower extremities. MUSCULOSKELETAL: Muscle strength and tone normal. SPINE: No scoliosis or deformity SKIN: No rashes CENTRAL NERVOUS SYSTEM: No focal deficits, tone is normal in all 4 extremities. PSYCHIATRIC: Alert and oriented -3. Appropriate affect. Intact judgment and insight. - Labs CBC & Chem 7: 03/11/20 07:07 03/11/20 07:07 Labs: Abnormal Lab Results - Last 24 Hours (Table) 03/10/20 03/10/20 03/11/20 Range/Units 16:49 20:44 06:55 WBC (3.8-10.6) k/uL RBC (3.80-5.40) m/uL Hgb (11.4-16.0) gm/dL Hct (34.0-46.0) % RDW (11.5-15.5) % Plt Count (150-450) k/uL Neutrophils # (1.3-7.7) k/uL Lymphocytes # (1.0-4.8) k/uL Sodium (137-145) mmol/L Potassium (3.5-5.1) mmol/L Glucose (74-99) mg/dL POC Glucose (mg/dL) 129 H 139 H 120 H (75-99) mg/dL 03/11/20 03/11/20 03/11/20 Range/Units 07:07 07:07 11:33 WBC 23.4 H (3.8-10.6) k/uL RBC 3.21 L (3.80-5.40) m/uL Hgb 8.9 L (11.4-16.0) gm/dL Hct 28.3 L (34.0-46.0) % RDW 16.6 H (11.5-15.5) % Plt Count 498 H (150-450) k/uL Neutrophils # 21.1 H (1.3-7.7) k/uL Lymphocytes # 0.9 L (1.0-4.8) k/uL Sodium 134 L (137-145) mmol/L Potassium 3.2 L (3.5-5.1) mmol/L Glucose 107 H (74-99) mg/dL POC Glucose (mg/dL) 135 H (75-99) mg/dL Microbiology - Last 24 Hours (Table) 03/09/20 12:25 Gram Stain - Preliminary Aspirate Body Fluid Culture - Preliminary 03/07/20 20:49 Blood Culture - Preliminary Blood No Growth after 72 hours Assessment and Plan Assessment: 1 Acute hypoxemic respiratory failure secondary toleft sided tension hydrothorax with some mild shift of the heart and mediastinum to the right 2 History of non-small cell lung cancer, 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 Maintained on oral Flagyl and IV ceftriaxone in the outpatient setting 4 Persistent atelectasis of the left lower lobe in addition to multiple pockets of pus within the left hemithorax. Status post follow-up bronchoscopy on 03/01/2020. Found to have a normal stump to left upper lobe. Complete obstruction of the left lower lobe bronchus immediately due to extrinsic compression. Follow-up biopsies negative for malignancy. 5 History of [id number] smoking 6 History of hypertension 7 Hyperlipidemia 8 Diabetes mellitus, type II 9 Depression, history of [place]: The patient was seen and evaluated by Dr. Fernandez Continued on vancomycin, ceftriaxone and Flagyl Continue bronchodilators Titrate down the FiO2 as tolerated Increase her activity as tolerated Cardiothoracic surgery on the case Infectious diseases on the case Consult medical oncology We will continue to follow and make further recommendations based on her clinical status I, the cosigning physician, performed a history & physical examination of the patient. Lungs sounds with crackles and dullness throughout the left lung. Ma intaining good O2 saturations in the 90s on 2 L/m per nasal cannula. I discussed the assessment and plan of care with my nurse practitioner, Jazmín Arndt. I attest to the above consultation as dictated by her.
--- NOTE | 2020-03-11 15:19 | XR ---
EXAMINATION TYPE: XR chest 1V DATE OF EXAM: 03/11/2020 COMPARISON: 03/07/2020 HISTORY: Shortness of breath TECHNIQUE: Single frontal view of the chest is obtained. FINDINGS: There is persistent near complete opacification of the left hemithorax. Areas of loculated air are again noted. Right lung remains clear. Heart size stable. PICC line noted. Underlying COPD s uspected. IMPRESSION: 1. Persistent complete opacification of the left lung likely representing a combination of consolidat hoda process and pleural effusion or empyema with areas of air noted in the apex of the lung.
[2020-03-11 16:35] LABS: Glucose,Whole Blood 135 mg/dL (75-99)
[2020-03-11] MEDS ORDERED: Potassium Replacement Protocol 1 EACH MISC MISCELLANE PRN (17:51)
[2020-03-11 20:40] LABS: Glucose,Whole Blood 184 mg/dL (75-99)
--- NOTE | 2020-03-11 23:09 | PN ---
PROGRESS NOTE DATE OF SERVICE: 03/11/2020 REASON FOR FOLLOWUP: Left-sided empyema. INTERVAL HISTORY: The patient is currently afebrile. Still complaining of more pain to the left side of the chest, shortness of breath and cough, but less productive sputum. No nausea or vomiting. No abdominal pain or diarrhea. PHYSICAL EXAMINATION: On examination, her blood pressure is 114/70 with a pulse of 78, temperature 97.7. She is 97% on 2 L nasal cannula. General description is a middle-aged female up in the bed in no distress. RESPIRATORY SYSTEM: Unlabored breathing with decreased breath sounds at the base. No wheeze. HEART: S1, S2. Regular rate and rhythm. ABDOMEN: Soft. No tenderness. LABS: White count down to 23,000. Blood culture negative. Pleural fluid culture so far pending. DIAGNOSTIC IMPRESSION AND PLAN: Patient admitted to hospital with left-sided chest pain in this patient who did have recent decortication for left-sided empyema and pectoralis muscle transposition. She was admitted with sudden onset of pain with concern for possible hematoma. Clinically not behaving as any worsening infection. Waiting for the culture to finalize. White count is showing a downward trend. Continue with supportive care. MMODL / IJN: [id number] /
[2020-03-12] MEDS: ACETAMINOPHEN TAB 500 MG TAB PO PRN ×2 (00:33→11:07)
[2020-03-12] MEDS: MORPHINE SULFATE 4 MG/ML SYRINGE IV PRN ×4 (04:50→20:46)
[2020-03-12] MEDS ORDERED: VANCOMYCIN TROUGH DUE 1 EACH MISC MISCELLANE ONE (05:00)
[2020-03-12] MEDS: VANCOMYCIN 1,000 MG in SODIUM CHLORIDE 0.9% 250 ML IVPB SCH ×2 (06:08→13:19)
[2020-03-12 06:42] LABS: Anisocytosis Slight; Basophils % (A) 0 %; Eosinophils # (A) 0.2 k/uL (0-0.7); Eosinophils % (A) 1 %; HCT 27.7 % (34.0-46.0); HGB 8.9 gm/dL (11.4-16.0); Hypochromasia Slight; Lymphocytes # (A) 0.9 k/uL (1.0-4.8); Lymphocytes % (A) 4 %; MCH 28.2 pg (25.0-35.0); MCHC 32.1 g/dL (31.0-37.0); MCV 87.6 fL (80.0-100.0); Mean Platelet Volume 7.2; Monocytes # (A) 0.5 k/uL (0-1.0); Monocytes % (A) 2 %; Neutrophils # (A) 20.8 k/uL (1.3-7.7); Neutrophils % (A) 92 %; Platelet Count 493 k/uL (150-450); RBC 3.16 m/uL (3.80-5.40); RDW 16.6 % (11.5-15.5); WBC 22.8 k/uL (3.8-10.6)
[2020-03-12 06:43] LABS: Glucose,Whole Blood 125 mg/dL (75-99)
[2020-03-12 07:09] LABS: African American GFR (CKD) >90 (>60 ml/min/1.73 sqM); Anion Gap 11 mmol/L; Blood Urea Nitrogen 9 mg/dL (7-17); Calcium 8.2 mg/dL (8.4-10.2); Carbon Dioxide 25 mmol/L (22-30); Chloride 100 mmol/L (98-107); Glucose 117 mg/dL (74-99); Non-African American GFR(CKD) >90 (>60 ml/min/1.73 sqM); Sodium 136 mmol/L (137-145)
[2020-03-12 07:44] LABS: Potassium 2.5 mmol/L (3.5-5.1)
[2020-03-12] MEDS ORDERED: Potassium Replacement Protocol 1 EACH MISC MISCELLANE PRN ×2 (07:54→16:41)
[2020-03-12] MEDS: BISOPROLOL 5 MG TAB PO SCH (08:47)
[2020-03-12] MEDS: VALSARTAN 160 MG TAB PO SCH (08:48)
[2020-03-12] MEDS: amLODIPine 10 MG TAB PO SCH (08:48)
[2020-03-12] MEDS: MELOXICAM 7.5 MG TAB PO SCH (08:48)
[2020-03-12] MEDS: DULoxetine HCL 60 MG CAPSULE.DR PO SCH (08:48)
[2020-03-12] MEDS: FUROSEMIDE 20 MG TAB PO SCH (08:48)
[2020-03-12] MEDS: ASCORBIC ACID 500 MG TAB PO SCH (08:49)
[2020-03-12] MEDS: metFORMIN 500 MG TAB PO SCH ×2 (08:50→20:46)
[2020-03-12] MEDS: CEFEPIME 2 GM in SODIUM CHLORIDE 0.9% 100 ML IVPB SCH (08:50)
[2020-03-12] MEDS: PANTOPRAZOLE 40 MG TABLET PO SCH (08:50)
[2020-03-12] MEDS: guaiFENesin 600 MG TABLET.ER PO SCH ×2 (08:50→20:46)
[2020-03-12] MEDS: hydrALAZINE HCL 50 MG TAB PO SCH ×4 (08:50→20:46)
[2020-03-12] MEDS: POTASSIUM CHLORIDE ER 20 MEQ TAB.ER PO SCH ×4 (08:50→17:11)
[2020-03-12] MEDS: metroNIDAZOLE 500 MG TAB PO SCH ×2 (08:50→15:54)
[2020-03-12] MEDS: ONDANSETRON 4 MG/2 ML VIAL IVP PRN (09:01)
[2020-03-12] MEDS: IPRATROPIUM-ALBUTEROL 3 ML NEB INHALATION SCH ×4 (09:02→20:08)
--- NOTE | 2020-03-12 11:00 | P.DS ---
Providers Date of admission: 03/07/20 21:02 Expected date of discharge: 03/13/20 Attending physician: Nathan Leroy Consults: 03/07/20 21:31 Consult Physician Stat Consulting Provider: Teddy Wilkins Consult Reason/Comments: Lung Cancer, Hx empyema Do you want consulting provider notified?: Yes 03/07/20 21:32 Consult Physician Stat Consulting Provider: Arpit Luque Consult Reason/Comments: lung cancer, hx empyema Do you want consulting provider notified?: Yes Consult Physician Stat Consulting Provider: Corona Champion Consult Reason/Comments: empyema, uti Do you want consulting provider notified?: Yes 03/11/20 15:12 Consult Physician Routine Consulting Provider: Bhavesh Yost Consult Reason/Comments: Non small cell lung cancer Do you want consulting provider notified?: Yes 03/11/20 18:00 Consult Physician Routine Consulting Provider: Bhavesh Yost Consult Reason/Comments: Rec. by pulm/s/p LULlobect,empyema/thoracot/TLdecort/ Do you want consulting provider notified?: Yes Primary care physician: Nathan [facility] Course: This is a 55-year-old female, nicotine dependent, 40 year smoking history, quit in October 2019, with recently diagnosed -poorly differentiated squamous cell CA left lung, status post left upper lobectomy on 12/31/2019, recent empyema of the left pleural space, status post left thoracotomy, total lung decortication, pectoralis major pedicle flap into the left pleural space, cryoablation of the intercostal nerves, cultures were positive for actinomyces odontolyticus, which she had been maintained on oral Flagyl and Rocephin via PICC line, outpatient,Presented to the ER with complaints of worsening shortness of breath, recurrent left chest wall pain which she reports similar to prior admission for empyema. Denies fever, chills. Denies drainage. Chest x-ray reported worsening left-sided tension hydrothorax with mild shift of the heart and mediastinum to the right side, almost complete opacification left hemothorax, small fluid level in the left lung apex, minimal infiltrate lateral right lower lobe. EKG reported Normal sinus rhythm, anterior infarct, age undetermined. Troponin less than 0.012.UA reporting large leukocytes, no nitrates 29 WBCs. Afebrile, VSS, maintaining O2 sats in the 90s on 2 L nasal cannula. Rocephin and Flagyl resumed. 03/09/2020 maintained on IV antibiotics of Rocephin and Flagyl via PICC line. Afebrile, WBC worsening, up to 27.4. Urine culture reporting yeast species. Blood cultures reports no growth at 24 hours .Left chest wall pain uncontrolled, increasing on Tylenol, received morphine. Hemoglobin 9.4. Evaluated by cardiothoracic surgery,CT pending. Prior dressing with small amount of sanguinous drainage. Aspirated superficial abscess of the left lateral side of back, at bedside, serosanguineous drainage, sent for culture, silver rope inserted with ABD Dressing applied. Tolerated procedure well.VSS. Attending O2 sats in the 90s on 2 L nasal cannula. Incentive spirometer up to 750. 03/10/[address] reporting stable multi-loculated collections some containing internal foci of air seen throughout the left chest from the lung apex to the left lung base consistent with underlying infection, scattered areas of consolidation with compressive atelectasis and pleural effusion, left-sided posterior chest wall muscular edema, fluid collection possibly reflecting contiguous spread of infection, increasing groundglass infiltrates throughout the right lung likely acute inflammatory process. Increased milky serosanguineous drainage from the left chest wall with dressing changed this morning 3. Cultures pending. Afebrile, WBC 25.9. IV antibiotics adjusted to cefepime and vancomycin as per infectious disease. Denies abdominal pain, no nausea or vomiting. Pain currently controlled. 03/11/20 maintained on vancomycin, Flagyl and cefepime as per ID. Cultures pending. Continues to have significant pain of left chest area. Afebrile, WBC 23.4. Wound cultures pending. Blood cultures reporting no growth. Chest x-ray reporting persistent complete opacification of the left lung representing combination of consolidative process, pleural effusion or empyema with areas of air noted in the apex of the lung. Maintaining O2 sats in the 90s on 2 L nasal cannula. Potassium 3.2. 03/12/2020: She maintains on vancomycin and Flagyl and cefepime per infectious disease. Body fluid culture aspiration have been no growth 3 days. She does continue to have some pain in the left chest. White count is improved. She is remaining afebrile. She is in 100% saturation on 2 L of O2 via nasal cannula. Her potassium was 2.5 today. She will receive potassium replacement protocol. She'll have repeat lab draw at 1600 of this is normalized she may be discharged home today if infectious disease can clear her for IV antibiotics.*He has a PICC line and receiving the IV antibiotics outpatient. She will need wound care follow-up the wound center. She'll need to follow up with oncology and pulmonology outpatient as well. These cannot be scheduled, we'll do delay her discharge. 03/13/2020: Patient continues to require some oxygen. Staff reports 2 L oxygen per minute with exertion To her saturations above 80%. She'll be given a prescription for this today. Repeat potassium today was 3.8. She's been cleared by pulmonology and thoracic surgery. Infectious disease the recommendations to continue Rocephin 2 g daily along with the Flagyl. Oncology had seen her as well and recommended no antineoplastic treatment due to her ongoing issues. They will see her in the next several weeks for follow-up. Overall her status is improved from admission. Patient Condition at Discharge: Fair Plan - Discharge Summary Discharge Rx Participant: Yes New Discharge Prescriptions: New Potassium Chloride ER [K-Dur 20] 20 meq PO DAILY #30 tab.er.prt Meloxicam [Mobic] 7.5 mg PO DAILY #60 tab guaiFENesin [Mucinex] 1,200 mg PO Q12HR #30 tablet.er Acetaminophen Tab [Tylenol] 650 mg PO Q6HR PRN tab PRN Reason: Mild Pain Or Fever > 100.5 traMADol HCl [Ultram] 50 mg PO Q6H PRN tab PRN Reason: Pain cefTRIAXone [Rocephin] 2 gm IVPB Q24H vial Continue DULoxetine HCL [Cymbalta] 60 mg PO DAILY metFORMIN HCL 500 mg PO BID Bisoprolol Fumarate [Zebeta] 10 mg PO DAILY Pantoprazole Sodium 40 mg PO AC-BRKFST Albuterol Inhaler [Ventolin Hfa Inhaler] 2 puff INHALATION RT-QID PRN PRN Reason: Shortness Of Breath Magnesium Oxide [Mag-Ox] 400 mg PO BID #0 tab metroNIDAZOLE [Flagyl] 500 mg PO Q8HR #90 tab hydrALAZINE HCL [Apresoline] 50 mg PO QID #120 tab Valsartan [Diovan] 160 mg PO DAILY #30 tab Furosemide [Lasix] 20 mg PO DAILY #30 tab amLODIPine [Norvasc] 10 mg PO DAILY #30 tab Acetaminophen Tab [Tylenol] 1,000 mg PO Q6HR PRN tab PRN Reason: Fever And/ Or Pain Ascorbic Acid [Vitamin C] 500 mg PO DAILY tab Ibuprofen [Motrin] 600 mg PO Q8HR PRN PRN Reason: Pain Potassium Chloride ER [K-Dur 10] See Taper PO DAILY Ondansetron [Zofran] 4 mg PO Q6H PRN PRN Reason: Nausea hydrOXYzine PAMOATE 50 mg PO HS Ferrous Sulfate [Iron (65 MG Elemental)] 325 mg PO W/LUNCH Discharge Medication List DULoxetine HCL [Cymbalta] 60 mg PO DAILY 06/04/16 [History] metFORMIN HCL 500 mg PO BID 12/28/19 [History] Albuterol Inhaler [Ventolin Hfa Inhaler] 2 puff INHALATION RT-QID PRN 01/29/20 [History] Bisoprolol Fumarate [Zebeta] 10 mg PO DAILY 01/29/20 [History] Magnesium Oxide [Mag-Ox] 400 mg PO BID #0 tab 01/29/20 [Rx] Pantoprazole Sodium 40 mg PO AC-BRKFST 01/29/20 [History] metroNIDAZOLE [Flagyl] 500 mg PO Q8HR #90 tab 02/12/20 [Rx] Acetaminophen Tab [Tylenol] 1,000 mg PO Q6HR PRN tab 02/15/20 [Rx] Ascorbic Acid [Vitamin C] 500 mg PO DAILY tab 02/15/20 [Rx] Furosemide [Lasix] 20 mg PO DAILY #30 tab 02/15/20 [Rx] Valsartan [Diovan] 160 mg PO DAILY #30 tab 02/15/20 [Rx] amLODIPine [Norvasc] 10 mg PO DAILY #30 tab 02/15/20 [Rx] hydrALAZINE HCL [Apresoline] 50 mg PO QID #120 tab 02/15/20 [Rx] Ibuprofen [Motrin] 600 mg PO Q8HR PRN 02/29/20 [History] Ferrous Sulfate [Iron (65 MG Elemental)] 325 mg PO W/LUNCH 03/09/20 [History] Ondansetron [Zofran] 4 mg PO Q6H PRN 03/09/20 [History] Potassium Chloride ER [K-Dur 10] See Taper PO DAILY 03/09/20 [History] hydrOXYzine PAMOATE 50 mg PO HS 03/09/20 [History] Acetaminophen Tab [Tylenol] 650 mg PO Q6HR PRN tab 03/12/20 [Rx] Meloxicam [Mobic] 7.5 mg PO DAILY #60 tab 03/12/20 [Rx] Potassium Chloride ER [K-Dur 20] 20 meq PO DAILY #30 tab.er.prt 03/12/20 [Rx] guaiFENesin [Mucinex] 1,200 mg PO Q12HR #30 tablet.er 03/12/20 [Rx] traMADol HCl [Ultram] 50 mg PO Q6H PRN tab 03/12/20 [Rx] cefTRIAXone [Rocephin] 2 gm IVPB Q24H vial 03/13/20 [Rx] Follow up Appointment(s)/Referral(s): [facility] [NON-STAFF] - 03/17/20 Nathan Leroy MD [Primary Care Provider] - 1-2 days Teddy Wilkins MD [STAFF PHYSICIAN] - 1 Week Bhavesh Yost MD [STAFF PHYSICIAN] - 2 Weeks César Fernandez DO [Doctor of Osteopathic Medicine] - 1 Week [facility] [NON-STAFF] - 1-2 Days Corona Champion MD [STAFF PHYSICIAN] - 1 Week Discharge Disposition: HOME WITH HOME HEALTH SERVICES
[2020-03-12 11:12] LABS: Glucose,Whole Blood 139 mg/dL (75-99)
--- NOTE | 2020-03-12 11:51 | P.CONS ---
History of Present Illness - Reason for Consult Consult date: 03/12/20 Left squamous cell lung cancer status post resection. Empyema - History of Present Illness This is a 55-year-old female patient who follows on an outpatient basis with Dr. Nathan Leroy. She is a past medical history significant for poorly differentiated squamous cell carcinoma, diagnosed in 12/03, status post left up per lobectomy in 12/31. Pathology showed a 9 cm tumor with invasion of the visceral pleura. Lymph nodes were uninvolved. The patient subsequently developed empyema left chest with culture showing actinomyces odontolyticusstatus, status post left thoracotomy with total lung decortication, pectoralis major radical flap transposition into the left pleural space in 01/31. Pathology of the pleura and did not show any malignancy. She has multiple other medical issues including hypertension, hyperlipidemia, chronic tobacco, type 2 diabetes mellitus, cervical cancer status post hysterectomy, anxiety and bipolar disorder. She presented to the emergency department here at [facility] with complaints of increasing shortness of breath, recurrent left chest wall pain, and drainage of dark colored fluid from one of her posterior chest wall incisions.. She also reports she was coughing up blood. Denies any recent fever, chills, nausea, vomiting, or diarrhea. Due to her recent cultures positive for actinomyces odontolyticus she has been receiving outpatient antibiotic treatments maintained on IV Rocephin and oral Flagyl per management by infectious disease. On 03/01/2020 she underwent a bronchoscopy completed by Dr. Luque and was found to have a normal stump to the left upper chest and near complete obstruction of the left lower lobe bronchus, mainly due to extrin sic compression. Cytology and transbronchial biopsies were negative. CT chest showed multiple loculated fluid collections in the peripheral portion of the left lung extending from the apex to the base consistent with her known history of empyema. There continued to be evidence of consolidation with compressive atelectasis of the left lung base. Consult was therefore placed for further evaluation and recommendations Review of Systems Constitutional: Reports fatigue, Reports poor appetite, Reports weight loss Eyes: denies blurred vision, denies pain Ears: deny: decreased hearing, ear discharge, earache, tinnitus Ears, nose, mouth and throat: Denies headache, Denies sore throat Cardiovascular: Reports dyspnea on exertion Respiratory: Reports dyspnea, Reports pain Gastrointestinal: Denies abdominal pain, Denies diarrhea, Denies nausea, Denies vomiting Genitourinary: Denies dysuria, Denies hematuria Menstruation: Reports postmenopausal Musculoskeletal: Denies myalgias Integumentary: Reports as per HPI, Reports wounds, Denies pruritus, Denies rash Neurological: Reports weakness, Denies numbness Psychiatric: Denies anxiety, Denies depression Endocrine: Reports fatigue, Reports weight change Hematologic/Lymphatic: Reports as per HPI Past Medical History Past Medical History: Atrial Fibrillation, Cancer, COPD, Diabetes Mellitus, Fibromyalgia, Hyperlipidemia, Hypertension Additional Past Medical History / Comment(s): Hx suspected A Fib. Hx of Cervical Cancer. Lung Cancer diagnosed 10/2019. SOB at times, hemoptysis occ. Wound healing Lt upper back. PICC line for daily IV AB Rx at Dr Dc. History of Any Multi-Drug Resistant Organisms: None Reported Past Surgical History: Hysterectomy Additional Past Surgical History / Comment(s): VAGINAL HYSTERECTOMY. Upper left lobectomy 12/2019; 02/03/20 Lt Thoracotomy, Lung decortication, Pectoralis major pedicle flap transposition. PICC line 02/15/20. Past Anesthesia/Blood Transfusion Reactions: No Reported Reaction, Family History of Problems w/ Anesthesia, Motion Sickness Additional Past Anesthesia/Blood Transfusion Reaction / Comm: Father had sig nificant blood pressure dropping years ago. Past Psychological History: Anxiety, Bipolar, Depression Smoking Status: Former smoker Past Alcohol Use History: None Reported Additional Past Alcohol Use History / Comment(s): QUIT SMOKING OCT 2019, SMOKED 1 PPD, SMOKED FOR 40 YEARS. Past Drug Use History: None Reported - Past Family History Mother Family Medical History: Cancer, Diabetes Mellitus Additional Family Medical History / Comment(s): BREAST CANCER Father Family Medical History: Cancer Additional Family Medical History / Comment(s): LUNG CANCER Medications and Allergies Home Medications Medication Instructions Recorded Confirmed Type DULoxetine HCL [Cymbalta] 60 mg PO DAILY 06/04/16 03/09/20 History metFORMIN HCL 500 mg PO BID 12/28/19 03/09/20 History Albuterol Inhaler [Ventolin Hfa 2 puff INHALATION RT-QID PRN 01/29/20 03/09/20 History Inhaler] Bisoprolol Fumarate [Zebeta] 10 mg PO DAILY 01/29/20 03/09/20 History Magnesium Oxide [Mag-Ox] 400 mg PO BID #0 tab 01/29/20 03/09/20 Rx Pantoprazole Sodium 40 mg PO AC-BRKFST 01/29/20 03/09/20 History metroNIDAZOLE [Flagyl] 500 mg PO Q8HR #90 tab 02/12/20 03/09/20 Rx Acetaminophen Tab [Tylenol] 1,000 mg PO Q6HR PRN tab 02/15/20 03/09/20 Rx Ascorbic Acid [Vitamin C] 500 mg PO DAILY tab 02/15/20 03/09/20 Rx Furosemide [Lasix] 20 mg PO DAILY #30 tab 02/15/20 03/09/20 Rx Valsartan [Diovan] 160 mg PO DAILY #30 tab 02/15/20 03/09/20 Rx amLODIPine [Norvasc] 10 mg PO DAILY #30 tab 02/15/20 03/09/20 Rx hydrALAZINE HCL [Apresoline] 50 mg PO QID #120 tab 02/15/20 03/09/20 Rx Ibuprofen [Motrin] 600 mg PO Q8HR PRN 02/29/20 03/09/20 History Ferrous Sulfate [Iron (65 MG 325 mg PO W/LUNCH 03/09/20 03/09/20 History Elemental)] Ondansetron [Zofran] 4 mg PO Q6H PRN 03/09/20 03/09/20 History Potassium Chloride ER [K-Dur 10] See Taper PO DAILY 03/09/20 03/09/20 History hydrOXYzine PAMOATE 50 mg PO HS 03/09/20 03/09/20 History Acetaminophen Tab [Tylenol] 650 mg PO Q6HR PRN tab 03/12/20 Rx Meloxicam [Mobic] 7.5 mg PO DAILY #60 tab 03/12/20 Rx Potassium Chloride ER [K-Dur 20] 20 meq PO DAILY #30 tab.er.prt 03/12/20 Rx Vancomycin 1,000 mg IVPB Q8H vial 03/12/20 Rx guaiFENesin [Mucinex] 1,200 mg PO Q12HR #30 tablet.er 03/12/20 Rx traMADol HCl [Ultram] 50 mg PO Q6H PRN tab 03/12/20 Rx Allergies Allergy/AdvReac Type Severity Reaction Status Date / Time mold Allergy Unknown Dyspnea, Verified 03/09/20 13:45 Rash, Swelling Penicillins Allergy Unknown Verified 03/09/20 13:45 Childhood Physical Exam Vitals: Vital Signs Temp Pulse Pulse Resp BP Pulse Ox 03/12/20 09:13 88 03/12/20 09:02 88 03/12/20 07:00 97.8 F 78 15 150/83 100 03/12/20 00:55 97.9 F 80 20 149/75 100 03/11/20 20:20 80 03/11/20 20:10 80 03/11/20 19:43 18 03/11/20 19:38 97.7 F 78 18 114/70 97 03/11/20 16:11 80 03/11/20 16:02 76 03/11/20 16:00 82 19 03/11/20 14:36 97.8 F 82 19 114/64 97 03/11/20 11:30 82 03/11/20 11:21 78 Intake and Output 03/11/20 03/12/20 03/12/20 22:59 06:59 14:59 Intake Total 20 Balance 20 Intake: Oral 20 Other: Voiding Method Toilet Toilet # Voids 2 - Constitutional General appearance: no acute distress - EENT Eyes: EOMI, PERRLA ENT: hearing grossly normal, normal oropharynx - Neck Neck: no lymphadenopathy - Respiratory Respiratory: left: diminished (Both upper and lower lung cornejo, lower greater than upper) - Cardiovascular Rhythm: regular Heart sounds: normal: S1, S2 - Gastrointestinal General gastrointestinal: normal bowel sounds, soft - Integumentary Posterolateral left chest wall currently bandaged. - Neurologic Neurologic: CNII-XII intact - Musculoskeletal Musculoskeletal: generalized weakness, strength equal bilaterally - Psychiatric Psychiatric: A&O x's 3, appropriate affect Results CBC & Chem 7: 03/12/20 06:01 03/12/20 06:01 Labs: Abnormal Lab Results - Last 24 Hours (Table) 03/11/20 03/11/20 03/11/20 Range/Units 11:33 16:34 20:38 WBC (3.8-10.6) k/uL RBC (3.80-5.40) m/uL Hgb (11.4-16.0) gm/dL Hct (34.0-46.0) % RDW (11.5-15.5) % Plt Count (150-450) k/uL Neutrophils # (1.3-7.7) k/uL Lymphocytes # (1.0-4.8) k/uL Sodium (137-145) mmol/L Potassium (3.5-5.1) mmol/L Glucose (74-99) mg/dL POC Glucose (mg/dL) 135 H 135 H 184 H (75-99) mg/dL Calcium (8.4-10.2) mg/dL 03/12/20 03/12/20 03/12/20 Range/Units 06:01 06:01 06:41 WBC 22.8 H (3.8-10.6) k/uL RBC 3.16 L (3.80-5.40) m/uL Hgb 8.9 L (11.4-16.0) gm/dL Hct 27.7 L (34.0-46.0) % RDW 16.6 H (11.5-15.5) % Plt Count 493 H (150-450) k/uL Neutrophils # 20.8 H (1.3-7.7) k/uL Lymphocytes # 0.9 L (1.0-4.8) k/uL Sodium 136 L (137-145) mmol/L Potassium 2.5 L* (3.5-5.1) mmol/L Glucose 117 H (74-99) mg/dL POC Glucose (mg/dL) 125 H (75-99) mg/dL Calcium 8.2 L (8.4-10.2) mg/dL 03/12/20 Range/Units 11:11 WBC (3.8-10.6) k/uL RBC (3.80-5.40) m/uL Hgb (11.4-16.0) gm/dL Hct (34.0-46.0) % RDW (11.5-15.5) % Plt Count (150-450) k/uL Neutrophils # (1.3-7.7) k/uL Lymphocytes # (1.0-4.8) k/uL Sodium (137-145) mmol/L Potassium (3.5-5.1) mmol/L Glucose (74-99) mg/dL POC Glucose (mg/dL) 139 H (75-99) mg/dL Calcium (8.4-10.2) mg/dL Microbiology - Last 24 Hours (Table) 03/09/20 12:25 Gram Stain - Preliminary Aspirate Body Fluid Culture - Preliminary 03/07/20 20:49 Blood Culture - Preliminary Blood No Growth after 96 hours Comments: Bronchoscopy procedure note, and pathology report reviewed Chest x-ray: report reviewed CT scan - chest: report reviewed Assessment and Plan (1) Squamous cell carcinoma of lung, stage III Narrative/Plan: The patient had a large primary tumor, 9 cm with visceral pleural invasion, without lymph node positivity. She had R0 resection. Ideally the patient would be recommended adjuvant chemotherapy 4-6 weeks after surgery. However the patient developed the empyema at that time requiring surgical intervention. She continues to have ongoing issues with the same, the persistent fluid collections, drainage from the chest wall wounds, and need for ongoing antibiotic - Therefore at this time she is not a candidate to start antineoplastic chemotherapy. She was advised that we would have to wait in her current situation is resolved in a satisfactory manner. We will continue follow-up. She has seen Dr. Cramer in the office previously, and has a follow-up appointment in the next couple of weeks. At this time there is no definite evidence of cancer recurrence. The patient's pleural biopsy from her decortication surgery was negative for malignancy. Her cytology and transbronchial biopsy from recent bronchoscopy was also negative. She was advised that the bronchoscopy did show significant extrinsic compression which is suspicious for malignant recurrence. However the same could also be due to compressive atelectasis which the patient does have due to her empyema on computed tomography scan. Therefore at this time we would recommend repeat imaging and potentially repeat bronchoscopy after the patient has hopefully responded to her ongoing antibiotic therapy. Current Visit: No Status: Acute Code(s): C34.90 - MALIGNANT NEOPLASM OF UNSP PART OF UNSP BRONCHUS OR LUNG SNOMED Code(s): 491706830 (2) Empyema Narrative/Plan: Diagnostic and therapeutic circumstances as described. The patient continues to have persistent fluid collections in the left hemithorax with recent breakdown of incision and drainage. As noted above, at this time there is no definite evidence of cancer recurrence. Therefore defer to thoracic surgery, and Saturday for ongoing management. Current Visit: Yes Status: Acute Code(s): J86.9 - PYOTHORAX WITHOUT FISTULA SNOMED Code(s): 955555579
--- NOTE | 2020-03-12 15:15 | P.PN ---
Subjective Progress Note Date: 03/12/20 Principal diagnosis: Acute hypoxemic respiratory failure secondary to left-sided tension hydrothorax and some mild shift of the heart, mediastinum to the right The patient is seen today 03/12/2020 in follow-up on the regular medical floor. She is currently resting comfortably in bed. Awake and alert in no acute distress. She is still having some ongoing left scapular discomfort. No worsening shortness of breath, cough or congestion. She is maintaining good O2 saturations in the mid 90s on 2 L/m per nasal cannula. She's afebrile. Hemodynamically stable. Aspirate of wound from left chest reveals no growth thus far. Blood cultures reveal no growth. White count 22.8. Hemoglobin 8.9. Sodium 136. Potassium 2.5. Chloride 100. Creatinine 0.54. Vanco trough 25.4. She remains on vancomycin, cefepime, Flagyl. ID is on the case. Chest x-ray continues to show persistent complete opacification of the left lung. Objective - Vital Signs Vital signs: Vital Signs Temp 98.1 F 03/12/20 14:45 Pulse 75 03/12/20 14:45 Resp 18 03/12/20 14:45 BP 101/65 03/12/20 14:45 Pulse Ox 96 03/12/20 14:45 Intake & Output 03/11/20 03/12/20 03/12/20 18:59 06:59 18:59 Intake Total 20 540 Balance 20 540 Weight 59.421 kg Intake: Oral 20 540 Other: Voiding Method Toilet Toilet Toilet # Voids 3 2 3 - Exam GENERAL EXAM: Alert, very pleasant 55-year-old female patient, on 2 L of oxygen and the pulse ox of 96% comfortable in no apparent distress. HEAD: Normocephalic/atraumatic. EYES: Normal reaction of pupils, equal size. Conjunctiva pink, sclera white. NOSE: Clear with pink turbinates. THROAT: No erythema or exudates. NECK: No masses, no JVD, no thyroid enlargement, no adenopathy. CHEST: No chest wall deformity. Symmetrical expansion. LUNGS: Very diminished breath sounds on the left side, with good aeration of the right lung CVS: Regular rate and rhythm, normal S1 and S2, no gallops, no murmurs, no rubs ABDOMEN: Soft, nontender. No hepatosplenomegaly, normal bowel sounds, no guarding or rigidity. EXTREMITIES: No clubbing, no edema, no cyanosis, 2+ pulses and upper and lower extremities. MUSCULOSKELETAL: Muscle strength and tone normal. SPINE: No scoliosis or deformity SKIN: No rashes CENTRAL NERVOUS SYSTEM: No focal deficits, tone is normal in all 4 extremities. PSYCHIATRIC: Alert and oriented -3. Appropriate affect. Intact judgment and insight. - Labs CBC & Chem 7: 03/12/20 06:01 03/12/20 06:01 Labs: Abnormal Lab Results - Last 24 Hours (Table) 03/11/20 03/11/20 03/12/20 Range/Units 16:34 20:38 06:01 WBC 22.8 H (3.8-10.6) k/uL RBC 3.16 L (3.80-5.40) m/uL Hgb 8.9 L (11.4-16.0) gm/dL Hct 27.7 L (34.0-46.0) % RDW 16.6 H (11.5-15.5) % Plt Count 493 H (150-450) k/uL Neutrophils # 20.8 H (1.3-7.7) k/uL Lymphocytes # 0.9 L (1.0-4.8) k/uL Sodium (137-145) mmol/L Potassium (3.5-5.1) mmol/L Glucose (74-99) mg/dL POC Glucose (mg/dL) 135 H 184 H (75-99) mg/dL Calcium (8.4-10.2) mg/dL 03/12/20 03/12/20 03/12/20 Range/Units 06:01 06:41 11:11 WBC (3.8-10.6) k/uL RBC (3.80-5.40) m/uL Hgb (11.4-16.0) gm/dL Hct (34.0-46.0) % RDW (11.5-15.5) % Plt Count (150-450) k/uL Neutrophils # (1.3-7.7) k/uL Lymphocytes # (1.0-4.8) k/uL Sodium 136 L (137-145) mmol/L Potassium 2.5 L* (3.5-5.1) mmol/L Glucose 117 H (74-99) mg/dL POC Glucose (mg/dL) 125 H 139 H (75-99) mg/dL Calcium 8.2 L (8.4-10.2) mg/dL Microbiology - Last 24 Hours (Table) 03/09/20 12:25 Gram Stain - Preliminary Aspirate Body Fluid Culture - Preliminary 03/07/20 20:49 Blood Culture - Preliminary Blood No Growth after 96 hours Assessment and Plan Assessment: 1 Acute hypoxemic respiratory failure secondary to left sided tension hydrothorax with some mild shift of the heart and mediastinum to the right 2 History of non-small cell lung cancer, 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 Maintained on oral Flagyl and IV ceftriaxone in the outpatient setting 4 Persistent atelectasis of the left lower lobe in addition to multiple pockets of pus within the left hemithorax. Status post follow-up bronchoscopy on 03/01/2020. Found to have a normal stump to left upper lobe. Complete obstruction of the left lower lobe bronchus immediately due to extrinsic compression. Follow-up biopsies negative for malignancy. 5 History of [id number] smoking 6 History of hypertension 7 Hyperlipidemia 8 Diabetes mellitus, type II 9 Depression, history of [place]: The patient was seen and evaluated by Dr. Fernandez Continued on vancomycin, ceftriaxone and Flagyl Continue bronchodilators Infectious disease is on the case Appreciate medical oncology consultation We will continue to follow and make further recommendations based on her clinical status I, the cosigning physician, performed a history & physical examination of the patient. Lungs sounds with crackles and dullness throughout the left lung. Maintaining good O2 saturations in the 90s on 2 L/m per nasal cannula. I discussed the assessment and plan of care with my nurse practitioner, Jazmín Arndt. I attest to the above note as dictated by her.
[2020-03-12 16:50] LABS: Glucose,Whole Blood 130 mg/dL (75-99)
[2020-03-12] MEDS ORDERED: VANCOMYCIN 1,000 MG in SODIUM CHLORIDE 0.9% 250 ML IVPB SCH (18:00)
--- NOTE | 2020-03-12 18:46 | PN ---
PROGRESS NOTE DATE OF SERVICE: 03/12/2020 REASON FOR FOLLOWUP: Left-sided empyema. INTERVAL HISTORY: The patient is currently afebrile. She did have significant serous drainage from her left chest site. The patient's pain is currently better after the drainage, breathing more comfortably as well. No significant cough or sputum production. No abdominal pain or diarrhea. PHYSICAL EXAMINATION: Blood pressure 101/55 with a pulse of 78, temperature 98.1. She is 92% on 2 L nasal cannula. General description is a middle-aged female up in the bed in no distress. Respiratory system: Unlabored breathing, decreased breath sounds in the base, with no wheeze. Heart S1, S2. Regular rate and rhythm. Abdomen soft, no tenderness. LABS: Hemoglobin is 9.9, white count 2.6. Calcium was 2.5, creatinine 0.54. Vancomycin trough slightly elevated. DIAGNOSTIC IMPRESSION AND PLAN: Patient presented to the hospital with left-sided chest pain. This patient did have a history of left-sided empyema requiring decortication. Previous culture positive for Actinomyces and the patient was on Rocephin and Flagyl with readmission possibly related to bleed or hematoma. The patient never had any fever on this admission. She did have aspirate of the area which has been negative culture [place]. We will switch her antibiotic back to Rocephin 2 g daily and the patient may be able to go home to continue with IV Rocephin while in the outpatient setting. All of her questions and concerns were answered. MMODL / IJN: [id number] /
[2020-03-12 20:54] LABS: Glucose,Whole Blood 132 mg/dL (75-99)
[2020-03-13] MEDS: metroNIDAZOLE 500 MG TAB PO SCH ×3 (00:03→14:50)
[2020-03-13] MEDS: ACETAMINOPHEN TAB 500 MG TAB PO PRN ×3 (00:07→14:57)
[2020-03-13] MEDS ORDERED: POTASSIUM CHLORIDE ER 20 MEQ TAB.ER PO STA (00:47)
[2020-03-13] MEDS ORDERED: VANCOMYCIN 1,000 MG in SODIUM CHLORIDE 0.9% 250 ML IVPB SCH (04:00)
[2020-03-13] MEDS: MORPHINE SULFATE 4 MG/ML SYRINGE IV PRN ×2 (05:15→13:16)
[2020-03-13 06:42] LABS: Glucose,Whole Blood 119 mg/dL (75-99)
[2020-03-13 06:59] LABS: Anisocytosis Slight; Basophils # (A) 0.1 k/uL (0-0.2); Basophils % (A) 0 %; Eosinophils # (A) 0.2 k/uL (0-0.7); Eosinophils % (A) 1 %; HCT 27.9 % (34.0-46.0); HGB 8.5 gm/dL (11.4-16.0); Hypochromasia Moderate; Lymphocytes # (A) 0.6 k/uL (1.0-4.8); Lymphocytes % (A) 3 %; MCHC 30.2 g/dL (31.0-37.0); MCV 89.2 fL (80.0-100.0); Mean Platelet Volume 7.3; Monocytes # (A) 0.6 k/uL (0-1.0); Monocytes % (A) 3 %; Neutrophils # (A) 19.6 k/uL (1.3-7.7); Neutrophils % (A) 91 %; Platelet Count 482 k/uL (150-450); RBC 3.13 m/uL (3.80-5.40); RDW 16.8 % (11.5-15.5); WBC 21.6 k/uL (3.8-10.6)
[2020-03-13 07:10] LABS: African American GFR (CKD) >90 (>60 ml/min/1.73 sqM); Anion Gap 8 mmol/L; Blood Urea Nitrogen 9 mg/dL (7-17); Calcium 8.5 mg/dL (8.4-10.2); Carbon Dioxide 26 mmol/L (22-30); Chloride 103 mmol/L (98-107); Glucose 107 mg/dL (74-99); Non-African American GFR(CKD) >90 (>60 ml/min/1.73 sqM); Potassium 3.8 mmol/L (3.5-5.1); Sodium 137 mmol/L (137-145)
[2020-03-13 07:33] VITALS: BP 156/83; RESP 17; TEMP 98.2
[2020-03-13 07:45] LABS: C Reactive Protein 74.9 mg/L (<10.0)
[2020-03-13] MEDS: MELOXICAM 7.5 MG TAB PO SCH (07:59)
[2020-03-13] MEDS: ASCORBIC ACID 500 MG TAB PO SCH (08:00)
[2020-03-13] MEDS: hydrALAZINE HCL 50 MG TAB PO SCH ×2 (08:00→11:53)
[2020-03-13] MEDS: metFORMIN 500 MG TAB PO SCH (08:00)
[2020-03-13] MEDS: PANTOPRAZOLE 40 MG TABLET PO SCH (08:00)
[2020-03-13] MEDS: guaiFENesin 600 MG TABLET.ER PO SCH (08:00)
[2020-03-13] MEDS: VALSARTAN 160 MG TAB PO SCH (08:01)
[2020-03-13] MEDS: amLODIPine 10 MG TAB PO SCH (08:01)
[2020-03-13] MEDS: DULoxetine HCL 60 MG CAPSULE.DR PO SCH (08:01)
[2020-03-13] MEDS: BISOPROLOL 5 MG TAB PO SCH (08:01)
[2020-03-13] MEDS: FUROSEMIDE 20 MG TAB PO SCH (08:01)
[2020-03-13] MEDS: IPRATROPIUM-ALBUTEROL 3 ML NEB INHALATION SCH ×3 (08:25→16:10)
[2020-03-13 08:37] VITALS: PULSE 84
[2020-03-13] MEDS ORDERED: POTASSIUM CHLORIDE ER 20 MEQ TAB.ER PO SCH (09:00)
--- NOTE | 2020-03-13 10:18 | P.PN ---
Subjective Progress Note Date: 03/13/20 Principal diagnosis: Status post left upper lobectomy and history of empyema left chest with culture showing actinomyces odontolyticusstatus, status post left thoracotomy with total lung decortication, pectoralis major radical flap transposition into the left pleural space. This is a 55-year-old female patient who follows on an outpatient basis with Dr. Nathan Leroy. She is a past medical history significant for poorly differentiated squamous cell carcinoma, status post left upper lobectomy, empyema left chest with culture showing actinomyces odontolyticusstatus, status post left thoracotomy with total lung decortication, pectoralis major radical flap transposition into the left pleural space, hypertension, hyperlipidemia, chronic tobacco, type 2 diabetes mellitus, cervical cancer status post hysterectomy, anxiety and bipolar disorder. She presented to the emergency department here at [facility] yesterday with complaints of increasing shortness of breath and some recurrent left chest wall pain. She also reports she was coughing up blood. Denies any recent fever, chills, nausea, vomiting, or diarrhea. Due to her recent cultures positive for actinomyces odontolyticus she has been receiving outpatient antibiotic treatments maintained on IV Rocephin and oral Flagyl per management by infectious disease. On 03/01/2020 she underwent a bronchoscopy completed by Dr. Luque and was found to have a normal stump to the left upper chest and near complete obstruction of the left lower lobe bronchus, mainly due to extrinsic compression. The chest x-ray completed on presentation showed a left sided tension hydrothorax with some mild shift of the heart and mediastinum to the right. 12-lead EKG demonstrated normal sinus rhythm heart rate 99 BPM. Due to the patient's recent left upper lobectomy, and thoracotomy with decortication a consult was placed to Dr. Lars Alexandre from cardiothoracic surgery for further evaluation and treatment recommendations. The patient was seen in follow-up today 03/13/2020 at her bedside on the fourth floor medical surgical unit. She is awake, alert and oriented 3 and is in no acute distress. She remained hemodynamically stable. Oxygen saturations are 98% on 2 L nasal cannula and she is achieving 750-1000 mL on her incentive spirometry. She reports that her left chest wall pain is much improved since Dr. Leroy has drained it and denies any complaints of shortness of breath at this time. The patient does report that she gets a little short winded with ambulating to and from the bathroom. Laboratory results this morning show that her WBC count continues to trend down and is 21.6 today, hemoglobin 8.5, platelets 482, C-reactive protein 74.9, BUN 9 and creatinine 0.59. She was started back on Rocephin 2 g IV piggyback for IV coverage yesterday by infectious disease and continues on Flagyl 500 mg by mouth every 8 hours. Urine culture from 03/07/2020 final report shows mansi glabarata with colony count greater than 100,000 CFU per mL. Objective - Vital Signs Vital signs: Vital Signs Temp 98.2 F 03/13/20 07:00 Pulse 84 03/13/20 08:36 Resp 17 03/13/20 07:00 BP 156/83 03/13/20 07:00 Pulse Ox 98 03/13/20 07:00 Intake & Output 03/12/20 03/13/20 03/13/20 18:59 06:59 18:59 Intake Total 540 250 Balance 540 250 Intake: Intake, IV Titration 50 Amount cefTRIAXone 2 gm In 50 Sodium Chloride 0.9% 50 ml @ 100 mls/hr IVPB Q24H [facility] Rx#:[id number] Oral 540 200 Other: Voiding Method Toilet # Voids 3 - Exam This is a pleasant 55-year-old female patient who is resting comfortably in bed on the fourth floor medical surgical unit. She is awake, alert and oriented 3 and is in no acute apparent distress. She remained hemodynamically stable and afebrile the last 24 hours. Oxygen saturation are 98% on 2 L nasal cannula and she is achieving 750-1000 mL on her incentive spirometry. - Constitutional General appearance: Present: cooperative, no acute distress, thin - EENT Eyes: Present: PERRLA, normal appearance ENT: Present: hearing grossly normal. Absent: thrush - Neck Details: Neck is supple, no lymphadenopathy, no JVD. - Respiratory Details: Lung sounds essentially clear to her right lobes and diminished to her left lobe. No wheezes, rhonchi or crackles present. Respirations are symmetrical and nonlabored. Oxygen saturation is 98% on 2 L nasal cannula. Achieving 750- 1000 mL on her incentive spirometry. - Cardiovascular Details: Regular rhythm and rate. S1 and S2 present, negative for S3, gallop or murmur. No edema present. - Gastrointestinal Gastrointestinal Comment(s): Abdomen is soft, nontender and nondistended. Active bowel sounds present in all 4 abdominal quadrants. No guarding or rigidity. No organomegaly appreciated. Tolerating oral intake. - Integumentary Integumentary Comment(s): Skin is warm and dry. Clubbing positive. eft chest wall fluctuant mass has been reduced with aspiration, silver wick drain in place with scant thin serous drainage. Left chest thoracotomy incision is clean, dry and approximated. No redness. - Neurologic Neurologic: Present: CNII-XII intact - Musculoskeletal Musculoskeletal: Present: gait normal, strength equal bilaterally - Psychiatric Psychiatric: Present: A&O x's 3, appropriate affect, intact judgment & insight - Allied health notes Allied health notes reviewed: nursing - Labs CBC & Chem 7: 03/13/20 06:21 03/13/20 06:21 Labs: Abnormal Lab Results - Last 24 Hours (Table) 03/12/20 03/12/20 03/12/20 Range/Units 11:11 16:00 16:48 WBC (3.8-10.6) k/uL RBC (3.80-5.40) m/uL Hgb (11.4-16.0) gm/dL Hct (34.0-46.0) % MCHC (31.0-37.0) g/dL RDW (11.5-15.5) % Plt Count (150-450) k/uL Neutrophils # (1.3-7.7) k/uL Lymphocytes # (1.0-4.8) k/uL Potassium 3.1 L (3.5-5.1) mmol/L Glucose (74-99) mg/dL POC Glucose (mg/dL) 139 H 130 H (75-99) mg/dL C-Reactive Protein (<10.0) mg/L 03/12/20 03/13/20 03/13/20 Range/Units 20:32 06:21 06:21 WBC 21.6 H (3.8-10.6) k/uL RBC 3.13 L (3.80-5.40) m/uL Hgb 8.5 L (11.4-16.0) gm/dL Hct 27.9 L (34.0-46.0) % MCHC 30.2 L (31.0-37.0) g/dL RDW 16.8 H (11.5-15.5) % Plt Count 482 H (150-450) k/uL Neutrophils # 19.6 H (1.3-7.7) k/uL Lymphocytes # 0.6 L (1.0-4.8) k/uL Potassium (3.5-5.1) mmol/L Glucose 107 H (74-99) mg/dL POC Glucose (mg/dL) 132 H (75-99) mg/dL C-Reactive Protein 74.9 H (<10.0) mg/L 03/13/20 Range/Units 06:41 WBC (3.8-10.6) k/uL RBC (3.80-5.40) m/uL Hgb (11.4-16.0) gm/dL Hct (34.0-46.0) % MCHC (31.0-37.0) g/dL RDW (11.5-15.5) % Plt Count (150-450) k/uL Neutrophils # (1.3-7.7) k/uL Lymphocytes # (1.0-4.8) k/uL Potassium (3.5-5.1) mmol/L Glucose (74-99) mg/dL POC Glucose (mg/dL) 119 H (75-99) mg/dL C-Reactive Protein (<10.0) mg/L Microbiology - Last 24 Hours (Table) 03/07/20 20:49 Blood Culture - Preliminary Blood No Growth after 120 hours 03/09/20 12:25 Gram Stain - Preliminary Aspirate Body Fluid Culture - Preliminary Assessment and Plan Assessment: 1. 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 History of empyema left lung with cultures positive for actinomyces odontolyticus, status post left thoracotomy, total lung decortication, pectoralis major pedicle flap transposition into the left pleural space, cryoablation of the intercostal nerves on 02/03/2020. Maintained on oral Flagyl and IV ceftriaxone in the outpatient setting 3. Subcutaneous phlegmon, left posterior chest wall 4. History of hypertension 5. History of hyperlipidemia 6. Type 2 diabetes mellitus 7. Remote history of tobacco dependence 8. History of cervical cancer status post hysterectomy 9. History of anxiety/bipolar disorder 10. History of paroxysmal atrial fibrillation 11. History of fibromyalgia Plan: 1. Continue dressing changes to her left chest. Cultures of body fluid from the left chest wall show no growth after 3 days. 2. Continue to encourage use of her incentive spirometry 10 times every hour while awake. 3. Antibiotic management per infectious disease. WBCs 21.6 today which is continues to trend down, she has been afebrile last 24 hours. 4. Medical management and other comorbidities per primary care service. 5. Encourage increase activity as tolerated. Out of bed for all meals. 6. More recommendations to follow based on patient's clinical course. The patient may be discharged home when okay with infectious disease and primary care medicine per the cardiothoracic surgery standpoint. Follow-up with Dr. Wilkins as an outpatient as scheduled. Time with Patient: Less than 30
[2020-03-13 10:58] LABS: Erythrocyte Sedimentation Rate 47 mm/hr (0-20)
[2020-03-13 11:06] LABS: Glucose,Whole Blood 90 mg/dL (75-99)
--- NOTE | 2020-03-13 11:35 | P.PN ---
Subjective Progress Note Date: 03/12/20 This is a 55-year-old female, nicotine dependent, 40 year smoking history, quit in October 2019, with recently diagnosed -poorly differentiated squamous cell CA left lung, status post left upper lobectomy on 12/31/2019, recent empyema of the left pleural space, status post left thoracotomy, total lung decortication, pectoralis major pedicle flap into the left pleural space, cryoablation of the intercostal nerves, cultures were positive for actinomyces odontolyticus, which she had been maintained on oral Flagyl and Rocephin via PICC line, outpatient,Presented to the ER with complaints of worsening shortness of breath, recurrent left chest wall pain which she reports similar to prior admission for empyema. Denies fever, chills. Denies drainage. Chest x-ray reported worsening left-sided tension hydrothorax with mild shift of the heart and mediastinum to the right side, almost complete opacification left hemothorax, small fluid level in the left lung apex, minimal infiltrate lateral right lower lobe. EKG reported Normal sinus rhythm, anterior infarct, age undetermined. Troponin less than 0.012.UA reporting large leukocytes, no nitrates 29 WBCs. Afebrile, VSS, maintaining O2 sats in the 90s on 2 L nasal cannula. Rocephin and Flagyl resumed. 03/09/2020 maintained on IV antibiotics of Rocephin and Flagyl via PICC line. Afebrile, WBC worsening, up to 27.4. Urine culture reporting yeast species. Blood cultures reports no growth at 24 hours .Left chest wall pain uncontrolled, increasing on Tylenol, received morphine. Hemoglobin 9.4. Evaluated by cardiothoracic surgery,CT pending. Prior dressing with small amount of sanguinous drainage. Aspirated superficial abscess of the left lateral side of back, at bedside, serosanguineous drainage, sent for culture, silver rope inserted with ABD Dressing applied. Tolerated procedure well.VSS. Attending O2 sats in the 90s on 2 L nasal cannula. Incentive spirometer up to 750. 03/10/[address] reporting stable multi-loculated collections some containing internal foci of air seen throughout the left chest from the lung apex to the left lung base consistent with underlying infection, scattered areas of consolidation with compressive atelectasis and pleural effusion, left-sided posterior chest wall muscular edema, fluid collection possibly reflecting contiguous spread of infection, increasing groundglass infiltrates throughout the right lung likely acute inflammatory process. Increased milky serosanguineous drainage from the left chest wall with dressing changed this morning 3. Cultures pending. Afebrile, WBC 25.9. IV antibiotics adjusted to cefepime and vancomycin as per infectious disease. Denies abdominal pain, no nausea or vomiting. Pain currently controlled. 03/11/20 maintained on vancomycin, Flagyl and cefepime as per ID. Cultures pending. Continues to have significant pain of left chest area. Afebrile, WBC 23.4. Wound cultures pending. Blood cultures reporting no growth. Chest x-ray reporting persistent complete opacification of the left lung representing combination of consolidative process, pleural effusion or empyema with areas of air noted in the apex of the lung. Maintaining O2 sats in the 90s on 2 L nasal cannula. Potassium 3.2. 03/12/2020: She maintains on vancomycin and Flagyl and cefepime per infectious disease. Body fluid culture aspiration have been no growth 3 days. She does continue to have some pain in the left chest. White count is improved. She is remaining afebrile. She is in 100% saturation on 2 L of O2 via nasal cannula. Her potassium was 2.5 today. She will receive potassium replacement protocol. She'll have repeat lab draw at 1600 of this is normalized she may be discharged home today if infectious disease can clear her for IV antibiotics.*He has a PICC line and receiving the IV antibiotics outpatient. She will need wound care follow-up the wound center. She'll need to follow up with oncology and pulmonology outpatient as well. These cannot be scheduled, we'll do delay her discharge. Objective - Vital Signs Vital signs: Vital Signs Temp 98.2 F 03/13/20 07:00 Pulse 84 03/13/20 08:36 Resp 17 03/13/20 07:00 BP 156/83 03/13/20 07:00 Pulse Ox 90 L 03/13/20 10:32 Intake & Output 03/12/20 03/13/20 03/13/20 18:59 06:59 18:59 Intake Total 540 250 Balance 540 250 Intake: Intake, IV Titration 50 Amount cefTRIAXone 2 gm In 50 Sodium Chloride 0.9% 50 ml @ 100 mls/hr IVPB Q24H [facility] Rx#:[id number] Oral 540 200 Other: Voiding Method Toilet # Voids 3 - Exam GENERAL: Sitting up in chair, no acute distress NECK: No JVD. No thyroid enlargement. No LNs CARDIOVASCULAR: S1, S2 regular. No murmur RESPIRATION: Nonlabored. Breath sounds diminished. Coarse dullness of the left lobe. ABDOMEN: Soft, nontender . No guarding. no masses palpable. Positive Bowel sounds. LEGS: No edema, wearing JOHAN hose. no swelling. No clubbing, no cyanosis PSYCHIATRY: Alert and oriented X3, mood and affect normal. NERVOUS SYSTEM: Cranial N 2-12 grossly normal. Moves all 4 limbs. No focal deficits. Strength and sensation grossly intact. Skin: no rashes.Left chest -posterior/lateral dressing clean, dry and intact(recently changed). - Labs CBC & Chem 7: 03/13/20 06:21 03/13/20 06:21 Labs: Abnormal Lab Results - Last 24 Hours (Table) 03/12/20 03/12/20 03/12/20 Range/Units 16:00 16:48 20:32 WBC (3.8-10.6) k/uL RBC (3.80-5.40) m/uL Hgb (11.4-16.0) gm/dL Hct (34.0-46.0) % MCHC (31.0-37.0) g/dL RDW (11.5-15.5) % Plt Count (150-450) k/uL Neutrophils # (1.3-7.7) k/uL Lymphocytes # (1.0-4.8) k/uL ESR (0-20) mm/hr Potassium 3.1 L (3.5-5.1) mmol/L Glucose (74-99) mg/dL POC Glucose (mg/dL) 130 H 132 H (75-99) mg/dL C-Reactive Protein (<10.0) mg/L 03/13/20 03/13/20 03/13/20 Range/Units 06:21 06:21 06:41 WBC 21.6 H (3.8-10.6) k/uL RBC 3.13 L (3.80-5.40) m/uL Hgb 8.5 L (11.4-16.0) gm/dL Hct 27.9 L (34.0-46.0) % MCHC 30.2 L (31.0-37.0) g/dL RDW 16.8 H (11.5-15.5) % Plt Count 482 H (150-450) k/uL Neutrophils # 19.6 H (1.3-7.7) k/uL Lymphocytes # 0.6 L (1.0-4.8) k/uL ESR 47 H (0-20) mm/hr Potassium (3.5-5.1) mmol/L Glucose 107 H (74-99) mg/dL POC Glucose (mg/dL) 119 H (75-99) mg/dL C-Reactive Protein 74.9 H (<10.0) mg/L Microbiology - Last 24 Hours (Table) 03/09/20 12:25 Gram Stain - Final Aspirate Body Fluid Culture - Final 03/07/20 20:49 Blood Culture - Preliminary Blood No Growth after 120 hours Assessment and Plan (1) Empyema Current Visit: Yes Status: Acute Code(s): J86.9 - PYOTHORAX WITHOUT FISTULA SNOMED Code(s): 517352777 (2) S/P lobectomy of lung Current Visit: Yes Status: Chronic Priority: Low Code(s): Z90.2 - ACQUIRED ABSENCE OF LUNG [PART OF] SNOMED Code(s): 23936061027631199 (3) Fibromyalgia Current Visit: No Status: Acute Code(s): M79.7 - FIBROMYALGIA SNOMED Code(s): 702640415 (4) Hydropneumothorax Current Visit: No Status: Acute Priority: High Code(s): J94.8 - OTHER SPECIFIED PLEURAL CONDITIONS SNOMED Code(s): 76808732 (5) Hypokalemia Current Visit: No Status: Acute Priority: High Code(s): E87.6 - HYPOKALEMIA SNOMED Code(s): 10105202 (6) Mixed hyperlipidemia Current Visit: No Status: Acute Code(s): E78.2 - MIXED HYPERLIPIDEMIA SNOMED Code(s): 513593268 (7) COPD (chronic obstructive pulmonary disease) Current Visit: No Status: Chronic Priority: Medium Code(s): J44.9 - CHRONIC OBSTRUCTIVE PULMONARY DISEASE, UNSPECIFIED SNOMED Code(s): 01046350 (8) Essential (primary) hypertension Current Visit: No Status: Chronic Priority: Medium Code(s): I10 - ESSENTIAL (PRIMARY) HYPERTENSION SNOMED Code(s): 45017241 (9) nursing home current use of anticoagulant Current Visit: No Status: Chronic Priority: Medium Code(s): Z79.01 - CUSTODIAL (CURRENT) USE OF ANTICOAGULANTS SNOMED Code(s): 195753562 (10) Paroxysmal atrial fibrillation Current Visit: No Status: Chronic Priority: Medium Code(s): I48.0 - PAROXYSMAL ATRIAL FIBRILLATION SNOMED Code(s): 646089215 Plan: Wait on recommendation infectious disease, upcoming oncology consult, and recommendations from pulmonology. Kidney potassium replacement. Possible dis charge today or early tomorrow. She will be reevaluated in the next 24 hours.
--- NOTE | 2020-03-13 13:41 | P.PN ---
Subjective Progress Note Date: 03/13/20 Principal diagnosis: Acute hypoxemic respiratory failure secondary to left-sided tension hydrothorax and some mild shift of the heart, mediastinum to the right The patient is seen today 03/12/2020 in follow-up on the regular medical floor. She is currently resting comfortably in bed. Awake and alert in no acute distress. She is still having some ongoing left scapular discomfort. No worsening shortness of breath, cough or congestion. She is maintaining good O2 saturations in the mid 90s on 2 L/m per nasal cannula. She's afebrile. Hemodynamically stable. Aspirate of wound from left chest reveals no growth thus far. Blood cultures reveal no growth. White count 22.8. Hemoglobin 8.9. Sodium 136. Potassium 2.5. Chloride 100. Creatinine 0.54. Vanco trough 25.4. She remains on vancomycin, cefepime, Flagyl. ID is on the case. Chest x-ray continues to show persistent complete opacification of the left lung. The patient is seen today 03/13/2020 follow-up on the regular medical floor. She is awake and alert in no acute distress. She is breathing about the same. No worse. A 6 minute walk was conducted and she did desaturate to 87% on room air and recovered on 2 L back into the 90s. Will most likely need home oxygen. White count 21.6. Hemoglobin 8.5. Neutrophils 19.6. Sodium 137. Potassium 3.8. Creatinine 0.59. C-reactive protein 74.9. She is currently on ceftriaxone and oral Flagyl per ID services. Objective - Vital Signs Vital signs: Vital Signs Temp 98.2 F 03/13/20 07:00 Pulse 84 03/13/20 12:13 Resp 17 03/13/20 07:00 BP 156/83 03/13/20 07:00 Pulse Ox 90 L 03/13/20 10:32 Intake & Output 03/12/20 03/13/20 03/13/20 18:59 06:59 18:59 Intake Total 540 250 Balance 540 250 Intake: Intake, IV Titration 50 Amount cefTRIAXone 2 gm In 50 Sodium Chloride 0.9% 50 ml @ 100 mls/hr IVPB Q24H [facility] Rx#:[id number] Oral 540 200 Other: Voiding Method Toilet # Voids 3 - Exam GENERAL EXAM: Alert, very pleasant 55-year-old female patient, on 2 L of oxygen and the pulse ox of 95% comfortable in no apparent distress. HEAD: Normocephalic/atraumatic. EYES: Normal reaction of pupils, equal size. Conjunctiva pink, sclera white. NOSE: Clear with pink turbinates. THROAT: No erythema or exudates. NECK: No masses, no JVD, no thyroid enlargement, no adenopathy. CHEST: No chest wall deformity. Symmetrical expansion. LUNGS: Very diminished breath sounds on the left side, with good aeration of the right lung CVS: Regular rate and rhythm, normal S1 and S2, no gallops, no murmurs, no rubs ABDOMEN: Soft, nontender. No hepatosplenomegaly, normal bowel sounds, no guarding or rigidity. EXTREMITIES: No clubbing, no edema, no cyanosis, 2+ pulses and upper and lower extremities. MUSCULOSKELETAL: Muscle strength and tone normal. SPINE: No scoliosis or deformity SKIN: No rashes CENTRAL NERVOUS SYSTEM: No focal deficits, tone is normal in all 4 extremities. PSYCHIATRIC: Alert and oriented -3. Appropriate affect. Intact judgment and insight. - Labs CBC & Chem 7: 03/13/20 06:21 03/13/20 06:21 Labs: Abnormal Lab Results - Last 24 Hours (Table) 03/12/20 03/12/20 03/12/20 Range/Units 16:00 16:48 20:32 WBC (3.8-10.6) k/uL RBC (3.80-5.40) m/uL Hgb (11.4-16.0) gm/dL Hct (34.0-46.0) % MCHC (31.0-37.0) g/dL RDW (11.5-15.5) % Plt Count (150-450) k/uL Neutrophils # (1.3-7.7) k/uL Lymphocytes # (1.0-4.8) k/uL ESR (0-20) mm/hr Potassium 3.1 L (3.5-5.1) mmol/L Glucose (74-99) mg/dL POC Glucose (mg/dL) 130 H 132 H (75-99) mg/dL C-Reactive Protein (<10.0) mg/L 03/13/20 03/13/20 03/13/20 Range/Units 06:21 06:21 06:41 WBC 21.6 H (3.8-10.6) k/uL RBC 3.13 L (3.80-5.40) m/uL Hgb 8.5 L (11.4-16.0) gm/dL Hct 27.9 L (34.0-46.0) % MCHC 30.2 L (31.0-37.0) g/dL RDW 16.8 H (11.5-15.5) % Plt Count 482 H (150-450) k/uL Neutrophils # 19.6 H (1.3-7.7) k/uL Lymphocytes # 0.6 L (1.0-4.8) k/uL ESR 47 H (0-20) mm/hr Potassium (3.5-5.1) mmol/L Glucose 107 H (74-99) mg/dL POC Glucose (mg/dL) 119 H (75-99) mg/dL C-Reactive Protein 74.9 H (<10.0) mg/L Microbiology - Last 24 Hours (Table) 03/09/20 12:25 Gram Stain - Final Aspirate Body Fluid Culture - Final 03/07/20 20:49 Blood Culture - Preliminary Blood No Growth after 120 hours Assessment and Plan Assessment: 1 Acute hypoxemic respiratory failure secondary to left sided tension hydrothorax with some mild shift of the heart and mediastinum to the right 2 History of non-small cell lung cancer, 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 Maintained on oral Flagyl and IV ceftriaxone in the outpatient setting 4 Persistent atelectasis of the left lower lobe in addition to multiple pockets of pus within the left hemithorax. Status post follow-up bronchoscopy on 03/01/2020. Found to have a normal stump to left upper lobe. Complete obs truction of the left lower lobe bronchus immediately due to extrinsic compression. Follow-up biopsies negative for malignancy. 5 History of [id number] smoking 6 History of hypertension 7 Hyperlipidemia 8 Diabetes mellitus, type II 9 Depression, history of [place]: The patient was seen and evaluated by Dr. Fernandez Continued on ceftriaxone and Flagyl Continue bronchodilators Will require home oxygen if she desaturates to 80% on room air during a 6 minute walk Recovered up in the mid 90s on 2 L/m per nasal cannula Cleared for discharge from the pulmonary standpoint I, the cosigning physician, performed a history & physical examination of the patient. Lungs sounds with crackles and dullness throughout the left lung. Maintaining good O2 saturations in the 90s on 2 L/m per nasal cannula. I discussed the assessment and plan of care with my nurse practitioner, Jazmín Arndt . I attest to the above note as dictated by her.
--- NOTE | 2020-03-13 15:41 | PN ---
PROGRESS NOTE DATE OF SERVICE: 03/13/2020 REASON FOR FOLLOWUP: Left-sided empyema. INTERVAL HISTORY: The patient is currently afebrile. The patient is breathing comfortably. The patient's left-sided chest pain has slightly decreased. Still has some cough with occasional blood tinged sputum. No nausea, vomiting. No abdominal pain. No diarrhea. PHYSICAL EXAMINATION: Blood pressure 156/83 with a pulse of 80, temperature of 98.2. She is 98% on 2 L nasal cannula. General description is a middle-aged female lying in bed in no distress. Respiratory system: Unlabored breathing, decreased breath sounds in the bases. No wheeze. Heart S1, S2. Regular rate and rhythm. ABDOMEN: Soft. No tenderness. LABS: Hemoglobin 8.5, white count 21.6, creatinine 0.59. CRP 74 with 47. The left pleural fluid cultures remain to be negative. DIAGNOSTIC IMPRESSION AND PLAN: Patient with left-sided empyema in this patient who is status post left thoracotomy. Previous culture positive for Actinomyces for which the patient was on Rocephin and Flagyl. Subsequently admitted to the hospital with more pain and swelling with concern for possible bleeding in that area. Surgery recommend no further surgical workup. Antibiotic has been changed back to Rocephin 2 grams daily to continue along with Flagyl and close outpatient followup. MMODL / IJN: [id number] /
== END 2020-03-13 16:07 | disposition home health service (06) | DRG 862 ==
LOC: EC 17:02 → 4SSUR 21:02
PROVIDERS: ADMIT Family Medicine; ATTEND Family Medicine
PROC: 0H95XZX Drainage of Chest Skin, External Approach, Diagnostic (ICD-10-PCS; principal; 2020-03-10)
DX: T81.41XA Infection following a procedure, superficial incisional surgical site, initial encounter (principal); J86.9 Pyothorax without fistula; J96.01 Acute respiratory failure with hypoxia; I50.33 Acute on chronic diastolic (congestive) heart failure; L02.213 Cutaneous abscess of chest wall; C34.12 Malignant neoplasm of upper lobe, left bronchus or lung; E87.1 Hypo-osmolality and hyponatremia; J94.2 Hemothorax; J98.11 Atelectasis; N39.0 Urinary tract infection, site not specified; Z87.891 Personal history of nicotine dependence; Z90.2 Acquired absence of lung [part of]; Z85.41 Personal history of malignant neoplasm of cervix uteri; E11.9 Type 2 diabetes mellitus without complications; E77.8 Other disorders of glycoprotein metabolism; E78.2 Mixed hyperlipidemia; E83.42 Hypomagnesemia; E87.6 Hypokalemia; Z11.59 Encounter for screening for other viral diseases; F31.9 Bipolar disorder, unspecified; F41.9 Anxiety disorder, unspecified; I11.0 Hypertensive heart disease with heart failure; I48.0 Paroxysmal atrial fibrillation; J44.9 Chronic obstructive pulmonary disease, unspecified; M79.7 Fibromyalgia; Z79.01 Long term (current) use of anticoagulants; Z79.1 Long term (current) use of non-steroidal anti-inflammatories (NSAID); Z79.84 Long term (current) use of oral hypoglycemic drugs; Z79.2 Long term (current) use of antibiotics; Z79.899 Other long term (current) drug therapy; Z80.1 Family history of malignant neoplasm of trachea, bronchus and lung; Z80.3 Family history of malignant neoplasm of breast; Z83.3 Family history of diabetes mellitus; Z88.0 Allergy status to penicillin; Z90.710 Acquired absence of both cervix and uterus
CPT/HCPCS: 36415; 71045; 71046; 71270; 80048; 80053; 80202; 81001; 83605; 83735; 83880; 84132; 84134; 84484; 85025; 85379; 85610; 85652; 85730; 86140; 87040; 87070; 87086; 87205; 87635; 93005; 94640; 96361; 96365; 96366; 96375; 96376; 99285

== ENCOUNTER → 2020-03-14 | Outpatient (CLI) | payer OTHER ==
--- NOTE | 2020-03-14 16:16 | US ---
EXAMINATION TYPE: US venous doppler duplex UE LT DATE OF EXAM: 03/14/2020 COMPARISON: NONE CLINICAL HISTORY: Swelling in arm R22.32. edema left arm, PICC line left arm SIDE PERFORMED: left Left Arm: no evidence of DVT. PICC line visualized left subclavian vein extending into Basilic vein. Superficial thrombus noted within basilic vein surrounding PICC line, unable to visualize any flow B asilic vein Grayscale, color doppler, spectral doppler imaging performed of the deep veins of the left upper extr emity. There is normal flow, compressibility and vascular waveforms. IMPRESSION: There is suspected superficial thrombus surrounding the left PICC line in the basilic vei n with subcutaneous edema distally noted towards the end of study. No evidence of acute DVT in the le ft upper extremity.
== END | disposition home or self-care (01) ==
LOC: RADUSWWP 15:18
PROVIDERS: ATTEND Internal Medicine Infectious Disease
DX: J86.0 Pyothorax with fistula (principal)

== ENCOUNTER → 2020-03-15 | Day surgery (SDC) | payer OTHER ==
[~2020-03-15] MED LIST changes: +LIDOCAINE 1% INJ 10MG/ML (20 ML MDV) SQ ONE; -POTASSIUM CHLORIDE 20 MEQ in WATER FOR INJECTION 1 100ML.BAG IVPB ONE; -SODIUM CHLORIDE 0.9% 1,000 ML IV ONE; -SODIUM CHLORIDE 0.9% 500 ML 500 ML in EMPTY BAG 1 BAG IV PRN
--- NOTE | 2020-03-15 12:41 | IR ---
PICC LINE PLACEMENT: HISTORY: Infection requiring long-term antibiotic therapy PROCEDURE: Ultrasound and fluoroscopic guidance of PICC line placement. COMPLICATIONS: None ANESTHESIA: 1. 1% Lidocaine locally. FINDINGS/TECHNIQUE: The procedure was explained to the patient. The risks, complications, benefits and alternatives were discussed and any questions were answered. Informed consent was obtained. The patient was placed supine on the fluoroscopic table and prepped and draped in the usual sterile fash ion. Utilizing a 21 gauge needle and sonographic and fluoroscopic guidance, access in the right bra chial vein was achieved and there is placement of a 0.018 guidewire. The vein is patent. A 4-F lopez th was placed over the guidewire. The guidewire and dilator were removed and a 4-F. PICC line was pl aced through the sheath with the tip at the level of the SVC. The sheath was removed, the catheter w as flushed and sutured into position. The patient was stable throughout the procedure and remained s table upon discharge from the Department of Radiology. The vein puncture was patent under ultrasound. A pastor scale image was obtained to document patency of the vein punctured. All elements of the maximal barrier technique were utilized. FLUOROSCOPY TIME: 0.5 minutes and one image submitted IMPRESSION: Successful PICC line placement under ultrasound and fluoroscopic guidance.
[2020-03-15 13:09] VITALS: BP 105/84; PULSE 130; RESP 18
[2020-03-15 13:11] VITALS: TEMP 98
== END ==
LOC: CATHCVL 10:37
PROVIDERS: ATTEND Internal Medicine Infectious Disease
DX: T82.868A Thrombosis due to vascular prosthetic devices, implants and grafts, initial encounter (principal); J86.0 Pyothorax with fistula; B96.89 Other specified bacterial agents as the cause of diseases classified elsewhere; J94.8 Other specified pleural conditions; J96.01 Acute respiratory failure with hypoxia; J44.9 Chronic obstructive pulmonary disease, unspecified; C34.12 Malignant neoplasm of upper lobe, left bronchus or lung; I11.0 Hypertensive heart disease with heart failure; I50.9 Heart failure, unspecified; I48.0 Paroxysmal atrial fibrillation; E87.6 Hypokalemia; E83.42 Hypomagnesemia; E87.1 Hypo-osmolality and hyponatremia; F33.1 Major depressive disorder, recurrent, moderate; F41.9 Anxiety disorder, unspecified; E11.9 Type 2 diabetes mellitus without complications; M79.7 Fibromyalgia; E77.8 Other disorders of glycoprotein metabolism; Z90.2 Acquired absence of lung [part of]; Z87.891 Personal history of nicotine dependence; Z79.01 Long term (current) use of anticoagulants; Z79.84 Long term (current) use of oral hypoglycemic drugs; Z79.1 Long term (current) use of non-steroidal anti-inflammatories (NSAID); Z79.899 Other long term (current) drug therapy; Z90.710 Acquired absence of both cervix and uterus; Z98.890 Other specified postprocedural states; Z85.41 Personal history of malignant neoplasm of cervix uteri; Z82.49 Family history of ischemic heart disease and other diseases of the circulatory system; Z83.3 Family history of diabetes mellitus; Z80.3 Family history of malignant neoplasm of breast; Z80.1 Family history of malignant neoplasm of trachea, bronchus and lung
CPT/HCPCS: 36573; C1751; C1769 ×2; U0003; J2001

== ENCOUNTER 2020-03-17 09:27 | Inpatient (IN) | payer OTHER ==
--- NOTE | 2020-03-17 10:21 | ED ---
General Adult HPI - General Chief complaint: Shortness of Breath Stated complaint: SHANITA Time Seen by Provider: 03/17/20 09:35 Source: patient, RN notes reviewed, old records reviewed Mode of arrival: ambulatory Limitations: physical limitation - History of Present Illness Initial comments: This is a 55-year-old female who presents to the emergency department complaining of shortness of breath 3 days. Patient has a recent history of lobectomy secondary to lung cancer. Patient states she's had a pleural effusion and has been anemic. Patient denies any recent fever or chills. Patient states she's recently been diagnosed with empyema and continues to be on antibiotics. Patient denies any abdominal pain. Patient denies nausea vomiting. Patient states she's overall very fatigued and weak. Patient denies any increased swelling to the legs. states the patient does appear much more pale to him. - Related Data Home Medications Medication Instructions Recorded Confirmed DULoxetine HCL [Cymbalta] 60 mg PO DAILY 06/04/16 03/09/20 metFORMIN HCL 500 mg PO BID 12/28/19 03/09/20 Albuterol Inhaler [Ventolin Hfa 2 puff INHALATION RT-QID PRN 01/29/20 03/09/20 Inhaler] Bisoprolol Fumarate [Zebeta] 10 mg PO DAILY 01/29/20 03/09/20 Pantoprazole Sodium 40 mg PO AC-BRKFST 01/29/20 03/09/20 Ibuprofen [Motrin] 600 mg PO Q8HR PRN 02/29/20 03/09/20 Ferrous Sulfate [Iron (65 MG 325 mg PO W/LUNCH 03/09/20 03/09/20 Elemental)] Ondansetron [Zofran] 4 mg PO Q6H PRN 03/09/20 03/09/20 Potassium Chloride ER [K-Dur 10] See Taper PO DAILY 03/09/20 03/09/20 hydrOXYzine PAMOATE 50 mg PO HS 03/09/20 03/09/20 Previous Rx's Medication Instructions Recorded Magnesium Oxide [Mag-Ox] 400 mg PO BID #0 tab 01/29/20 metroNIDAZOLE [Flagyl] 500 mg PO Q8HR #90 tab 02/12/20 Acetaminophen Tab [Tylenol] 1,000 mg PO Q6HR PRN tab 02/15/20 Ascorbic Acid [Vitamin C] 500 mg PO DAILY tab 02/15/20 Furosemide [Lasix] 20 mg PO DAILY #30 tab 02/15/20 Valsartan [Diovan] 160 mg PO DAILY #30 tab 02/15/20 amLODIPine [Norvasc] 10 mg PO DAILY #30 tab 02/15/20 hydrALAZINE HCL [Apresoline] 50 mg PO QID #120 tab 02/15/20 Acetaminophen Tab [Tylenol] 650 mg PO Q6HR PRN tab 03/12/20 Meloxicam [Mobic] 7.5 mg PO DAILY #60 tab 03/12/20 Potassium Chloride ER [K-Dur 20] 20 meq PO DAILY #30 tab.er.prt 03/12/20 guaiFENesin [Mucinex] 1,200 mg PO Q12HR #30 tablet.er 03/12/20 traMADol HCl [Ultram] 50 mg PO Q6H PRN tab 03/12/20 cefTRIAXone [Rocephin] 2 gm IVPB Q24H vial 03/13/20 Allergies Allergy/AdvReac Type Severity Reaction Status Date / Time mold Allergy Unknown Dyspnea, Verified 03/17/20 09:35 Rash, Swelling Penicillins Allergy Unknown Verified 03/17/20 09:35 Childhood Review of Systems ROS Statement: Those systems with pertinent positive or pertinent negative responses have been documented in the HPI. ROS Other: All systems not noted in ROS Statement are negative. Past Medical History Past Medical History: Atrial Fibrillation, Cancer, COPD, Diabetes Mellitus, Fibromyalgia, Hyperlipidemia, Hypertension Additional Past Medical History / Comment(s): A Fib. Hx of Cervical Cancer. Lung Cancer diagnosed 10/2019. SOB at times, hemoptysis occ. Wound healing Lt upper back. PICC line for daily IV AB Rx at Dr Dc. History of Any Multi-Drug Resistant Organisms: None Reported Past Surgical History: Hysterectomy Additional Past Surgical History / Comment(s): VAGINAL HYSTERECTOMY. Upper left lobectomy 12/2019; 02/03/20 Lt Thoracotomy, Lung decortication, Pectoralis major pedicle flap transposition. PICC line 02/15/20. Past Anesthesia/Blood Transfusion Reactions: No Reported Reaction, Family History of Problems w/ Anesthesia, Motion Sickness Additional Past Anesthesia/Blood Transfusion Reaction / Comment(s): Father had significant blood pressure dropping years ago. Past Psychological History: Anxiety, Bipolar, Depression Smoking Status: Former smoker Past Alcohol Use History: None Reported Past Drug Use History: None Reported - Past Family History Mother Family Medical History: Cancer, Diabetes Mellitus Additional Family Medical History / Comment(s): BREAST CANCER Father Family Medical History: Cancer Additional Family Medical History / Comment(s): LUNG CANCER General Exam - General Exam Comments Initial Comments: GENERAL: Patient is well-developed and well-nourished. Patient is nontoxic and well-hydrated and is in mild distress. ENT: Neck is soft and supple. No significant lymphadenopathy is noted. Oropharynx is clear. Moist mucous membranes. Neck has full range of motion without eliciting any pain. EYES: Patient's conjunctiva is very pale Extraocular movements were intact and pupils were equal round and reactive to light. Eyelids were unremarkable. PULMONARY: Unlabored respirations. Good breath sounds bilaterally. No audible rales rhonchi or wheezing was noted. CARDIOVASCULAR: There is a regular rate and rhythm without any murmurs gallops or rubs. ABDOMEN: Soft and nontender with normal bowel sounds. SKIN: Patient's skin is pale NEUROLOGIC: Patient is alert and oriented x3. Cranial nerves II through XII are grossly intact. Motor and sensory are also intact. Normal speech, volume and content. Symmetrical smile. MUSCULOSKELETAL: Normal extremities with adequate strength and full range of motion. LYMPHATICS: No significant lymphadenopathy is noted PSYCHIATRIC: Normal psychiatric evaluation. Limitations: physical limitation Course Vital Signs 03/17/20 03/17/20 03/17/20 09:33 09:59 12:19 Temperature 97.4 F L Pulse Rate 77 71 Respiratory 22 16 20 Rate Blood Pressure 94/74 90/63 O2 Sat by Pulse 100 98 Oximetry Medical Decision Making - Medical Decision Making EKG shows normal sinus rhythm at 77 bpm FL interval is on a 44 QRS is 74 QT interval 442 QTC is 500. Patient's EKG shows no ST segment elevation or depression. Patient has some T-wave inversions in leads V1 through V4 Chest x-ray shows complete opacification of the right lung field Patient has a elevated white count which has been elevated for over 2 weeks per patient also is anemic at 8.0. Patient has a lactic acid 3.[address] Vu he agreed to admit the patient admitted the patient I consulted Dr. Wilkins and pulmonary. I also placed the patient on Levaquin and vancomycin Patient was considered septic at 11:10 AM - Lab Data Result diagrams: 03/17/20 10:07 03/17/20 10:07 Lab Results 03/17/20 03/17/20 03/17/20 Range/Units 10:07 10:07 10:07 WBC 27.2 H (3.8-10.6) k/uL RBC 2.96 L (3.80-5.40) m/uL Hgb 8.0 L (11.4-16.0) gm/dL Hct 26.6 L (34.0-46.0) % MCV 89.7 (80.0-100.0) fL MCH 27.1 (25.0-35.0) pg MCHC 30.2 L (31.0-37.0) g/dL RDW 17.7 H (11.5-15.5) % Plt Count 514 H (150-450) k/uL Neutrophils % 93 % Lymphocytes % 4 % Monocytes % 2 % Eosinophils % 0 % Basophils % 0 % Neutrophils # 25.2 H (1.3-7.7) k/uL Lymphocytes # 1.0 (1.0-4.8) k/uL Monocytes # 0.6 (0-1.0) k/uL Eosinophils # 0.1 (0-0.7) k/uL Basophils # 0.1 (0-0.2) k/uL Manual Slide Review Performed Polychromasia Present Hypochromasia Moderate Poikilocytosis (manual Present Anisocytosis Slight PT 11.3 (9.0-12.0) sec INR 1.1 (<1.2) APTT 22.3 (22.0-30.0) sec Sodium (137-145) mmol/L Potassium (3.5-5.1) mmol/L Chloride (98-107) mmol/L Carbon Dioxide (22-30) mmol/L Anion Gap mmol/L BUN (7-17) mg/dL Creatinine (0.52-1.04) mg/dL Est GFR (CKD-EPI)AfAm (>60 ml/min/1.73 sqM) Est GFR (CKD-EPI)NonAf (>60 ml/min/1.73 sqM) Glucose (74-99) mg/dL Plasma Lactic Acid Orestes (0.7-2.0) mmol/L Calcium (8.4-10.2) mg/dL Magnesium (1.6-2.3) mg/dL Total Bilirubin (0.2-1.3) mg/dL AST (14-36) U/L ALT (4-34) U/L Alkaline Phosphatase (38-126) U/L Troponin I (0.000-0.034) ng/mL NT-Pro-B Natriuret Pep pg/mL Total Protein (6.3-8.2) g/dL Albumin (3.5-5.0) g/dL Blood Type B Negative Blood Type Recheck B Neg Bld Type Recheck Status No Antibody Screen NEGATIVE Spec Expiration Date 03/20/2020 - 230603/17/20 03/17/20 03/17/20 Range/Units 10:07 10:07 10:07 WBC (3.8-10.6) k/uL RBC (3.80-5.40) m/uL Hgb (11.4-16.0) gm/dL Hct (34.0-46.0) % MCV (80.0-100.0) fL MCH (25.0-35.0) pg MCHC (31.0-37.0) g/dL RDW (11.5-15.5) % Plt Count (150-450) k/uL Neutrophils % % Lymphocytes % % Monocytes % % Eosinophils % % Basophils % % Neutrophils # (1.3-7.7) k/uL Lymphocytes # (1.0-4.8) k/uL Monocytes # (0-1.0) k/uL Eosinophils # (0-0.7) k/uL Basophils # (0-0.2) k/uL Manual Slide Review Polychromasia Hypochromasia Poikilocytosis (manual Anisocytosis PT (9.0-12.0) sec INR (<1.2) APTT (22.0-30.0) sec Sodium 136 L (137-145) mmol/L Potassium 4.2 (3.5-5.1) mmol/L Chloride 102 (98-107) mmol/L Carbon Dioxide 25 (22-30) mmol/L Anion Gap 9 mmol/L BUN 16 (7-17) mg/dL Creatinine 0.66 (0.52-1.04) mg/dL Est GFR (CKD-EPI)AfAm >90 (>60 ml/min/1.73 sqM) Est GFR (CKD-EPI)NonAf >90 (>60 ml/min/1.73 sqM) Glucose 146 H (74-99) mg/dL Plasma Lactic Acid Orestes 3.5 H* (0.7-2.0) mmol/L Calcium 8.5 (8.4-10.2) mg/dL Magnesium 1.7 (1.6-2.3) mg/dL Total Bilirubin 0.3 (0.2-1.3) mg/dL AST 22 (14-36) U/L ALT 8 (4-34) U/L Alkaline Phosphatase 114 (38-126) U/L Troponin I 0.018 (0.000-0.034) ng/mL NT-Pro-B Natriuret Pep pg/mL Total Protein 5.6 L (6.3-8.2) g/dL Albumin 2.7 L (3.5-5.0) g/dL Blood Type Blood Type Recheck Bld Type Recheck Status Antibody Screen Spec Expiration Date 03/17/20 Range/Units 10:07 WBC (3.8-10.6) k/uL RBC (3.80-5.40) m/uL Hgb (11.4-16.0) gm/dL Hct (34.0-46.0) % MCV (80.0-100.0) fL MCH (25.0-35.0) pg MCHC (31.0-37.0) g/dL RDW (11.5-15.5) % Plt Count (150-450) k/uL Neutrophils % % Lymphocytes % % Monocytes % % Eosinophils % % Basophils % % Neutrophils # (1.3-7.7) k/uL Lymphocytes # (1.0-4.8) k/uL Monocytes # (0-1.0) k/uL Eosinophils # (0-0.7) k/uL Basophils # (0-0.2) k/uL Manual Slide Review Polychromasia Hypochromasia Poikilocytosis (manual Anisocytosis PT (9.0-12.0) sec INR (<1.2) APTT (22.0-30.0) sec Sodium (137-145) mmol/L Potassium (3.5-5.1) mmol/L Chloride (98-107) mmol/L Carbon Dioxide (22-30) mmol/L Anion Gap mmol/L BUN (7-17) mg/dL Creatinine (0.52-1.04) mg/dL Est GFR (CKD-EPI)AfAm (>60 ml/min/1.73 sqM) Est GFR (CKD-EPI)NonAf (>60 ml/min/1.73 sqM) Glucose (74-99) mg/dL Plasma Lactic Acid Orestes (0.7-2.0) mmol/L Calcium (8.4-10.2) mg/dL Magnesium (1.6-2.3) mg/dL Total Bilirubin (0.2-1.3) mg/dL AST (14-36) U/L ALT (4-34) U/L Alkaline Phosphatase (38-126) U/L Troponin I (0.000-0.034) ng/mL NT-Pro-B Natriuret Pep 72420 pg/mL Total Protein (6.3-8.2) g/dL Albumin (3.5-5.0) g/dL Blood Type Blood Type Recheck Bld Type Recheck Status Antibody Screen Spec Expiration Date Disposition Clinical Impression: Sepsis, Anemia, Lactic acidosis, Empyema lung Disposition: ADMITTED IP TO THIS HOSP Referrals: Nathan Leroy MD [Primary Care Provider] - 1-2 days Time of Disposition: 12:36
[2020-03-17 10:23] LABS: Anisocytosis Slight; Basophils # (A) 0.1 k/uL (0-0.2); Basophils % (A) 0 %; Eosinophils # (A) 0.1 k/uL (0-0.7); Eosinophils % (A) 0 %; HCT 26.6 % (34.0-46.0); Hypochromasia Moderate; Lymphocytes % (A) 4 %; MCH 27.1 pg (25.0-35.0); MCHC 30.2 g/dL (31.0-37.0); MCV 89.7 fL (80.0-100.0); Mean Platelet Volume 7.8; Monocytes # (A) 0.6 k/uL (0-1.0); Monocytes % (A) 2 %; Neutrophils # (A) 25.2 k/uL (1.3-7.7); Neutrophils % (A) 93 %; Platelet Count 514 k/uL (150-450); RBC 2.96 m/uL (3.80-5.40); RDW 17.7 % (11.5-15.5); WBC 27.2 k/uL (3.8-10.6)
[2020-03-17 10:35] LABS: ALT 8 U/L (4-34); AST 22 U/L (14-36); African American GFR (CKD) >90 (>60 ml/min/1.73 sqM); Albumin 2.7 g/dL (3.5-5.0); Alkaline Phosphatase 114 U/L (38-126); Anion Gap 9 mmol/L; Blood Urea Nitrogen 16 mg/dL (7-17); Calcium 8.5 mg/dL (8.4-10.2); Carbon Dioxide 25 mmol/L (22-30); Chloride 102 mmol/L (98-107); Glucose 146 mg/dL (74-99); Magnesium 1.7 mg/dL (1.6-2.3); Non-African American GFR(CKD) >90 (>60 ml/min/1.73 sqM); Potassium 4.2 mmol/L (3.5-5.1); Sodium 136 mmol/L (137-145); Total Bilirubin 0.3 mg/dL (0.2-1.3); Total Protein 5.6 g/dL (6.3-8.2)
--- NOTE | 2020-03-17 10:39 | XR ---
EXAMINATION TYPE: XR chest 2V DATE OF EXAM: 03/17/2020 COMPARISON: 03/11/2020 INDICATION: Difficulty breathing TECHNIQUE: Frontal and lateral views of the chest are obtained. FINDINGS: The heart size is normal. The pulmonary vasculature is normal. The left lung is surgically absent. There is opacification to the left hemithorax. A right PICC line is present with tip in the superior vena cava region. Right lung appears clear. Findings appear stabl e from 03/11/2020. IMPRESSION: 1. Stable opacification to the right hemithorax. 2. Right lung appears clear.
[2020-03-17] MEDS ORDERED: SODIUM CHLORIDE 0.9% 1,000 ML IV ONE ×2 (10:45→12:36)
[2020-03-17 10:47] LABS: INR 1.1 (<1.2); Partial Thromboplastin Time 22.3 sec (22.0-30.0); Prothrombin Time 11.3 sec (9.0-12.0)
[2020-03-17 11:10] LABS: Poikilocytosis (M) Present; Polychromasia Present
--- NOTE | 2020-03-17 12:10 | US ---
EXAMINATION TYPE: US venous doppler duplex UE LT DATE OF EXAM: 03/17/2020 COMPARISON: 03/14/2020 CLINICAL HISTORY: PICC line and arm pain . On aspirin. Just had left PICC removed yesterday and righ t PICC line placed. Hx left Basilic SVT. SIDE PERFORMED: Left Grayscale, color doppler, spectral doppler imaging performed of the deep veins of the upper extremiti es. There is normal flow, compressibility and vascular waveforms. However there is superficial echog enic thrombus in the basilic vein. Left Arm: Negative for DVT. Positive for SVT in Basilic. IMPRESSION: 1. Superficial venous thrombosis in the basilic vein, as seen on the recent ultrasound. 2. No sonographic evidence of deep venous thrombosis within the visualized left upper extremity.
[2020-03-17] MEDS ORDERED: HYDROmorphone 0.5 MG/0.5 ML SYRINGE IVP STA (12:22)
[2020-03-17] MEDS ORDERED: SODIUM CHLORIDE 0.9% 500 ML 500 ML IV ONE ×2 (12:24→19:52)
[2020-03-17] MEDS ORDERED: VANCOMYCIN IV PER PHARMACY 1 EACH MISC MISCELLANE PRN (12:37)
[2020-03-17] MEDS ORDERED: LEVOFLOXACIN 750MG-D5W PMX 750 MG in DEXTROSE/WATER 1 150ML.BAG IVPB STA (12:37)
[2020-03-17] MEDS ORDERED: VANCOMYCIN 1,250 MG in SODIUM CHLORIDE 0.9% 250 ML IVPB STA (12:52)
[2020-03-17] MEDS ORDERED: ACETAMINOPHEN TAB 325 MG TAB PO PRN (15:26)
[2020-03-17] MEDS ORDERED: traMADol 50 MG TAB PO PRN (15:26)
[2020-03-17] MEDS ORDERED: PANTOPRAZOLE 40 MG/10 ML VIAL IVP SCH (15:30)
[2020-03-17] MEDS ORDERED: cefTRIAXone 2 GM VIAL IVPB SCH (15:30)
[2020-03-17 15:57] LABS: Glucose,Whole Blood 119 mg/dL (75-99)
--- NOTE | 2020-03-17 16:18 | CT ---
EXAMINATION TYPE: CODE STROKE: CT brain wo contr DATE OF EXAM: 03/17/2020 HISTORY: Difficulty with speech that has subsided, acute onset. History of lung cancer. CT DLP: 1232.4 mGycm. Automated Exposure Control for Dose Reduction was Utilized. TECHNIQUE: CT scan of the head is performed without contrast. COMPARISON: Prior CT brain November 24, 2019. Prior MRI brain November 13, 2019. FINDINGS: There is no acute intracranial hemorrhage or midline shift identified. There is diffuse v entricular and sulcal prominence consistent with diffuse age-related cerebral atrophy. There is low- attenuation in the periventricular white matter consistent with chronic small vessel ischemic change. The globes are intact and the visualized sinuses are clear. IMPRESSION: No acute intracranial hemorrhage or midline shift. There is mild to minimal diffuse age -related cerebral atrophy and chronic small vessel ischemic change redemonstrated. If clinical concern for acute stroke persist further investigation with MRI study may BE warranted.
--- NOTE | 2020-03-17 16:51 | P.GSCN ---
History of Present Illness Consult date: 03/17/20 Reason for Consult: Status post left upper lobectomy on 12/31/2019, status post left thoracotomy with total lung decortication, pectoralis major pedicle flap transposition into the left pleural space, cryoablation of the intercostal nerves. The patient is well known to the cardiothoracic surgery service. Requesting physician: Mert Galeana History of present illness: This is a 55-year-old female patient who is followed by Dr. Nathan Leroy on an outpatient basis. 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 She also has a past medical history significant for hypertension, hyperlipidemia, chronic tobacco abuse, type 2 diabetes mellitus, cervical cancer status post hysterectomy, anxiety and bipolar disorder. She was recently in the hospital on 03/07/2020 with complaints of shortness of breath and dyspnea on exertion as well as pain and a fluctuant area to her posterior left chest. She was subsequently discharged home on 03/12/2020 with continued IV antibiotic treatments managed by Dr. Champion from infectious disease and wound care to her left posterior chest followed by Dr. Leroy in the wound healing center. Today 03/17/2020 the patient presented to the emergency department here at [facility] with complaints of shortness of breath which has been progressively been getting worse over the last couple of days and some increased swelling to her bilateral lower extremities. The patient reports that she is unable even to walk from her chair to the bathroom without taking frequent breaks. The patient states she is still having some intermittent pain to her left posterior chest and to her left upper extremity where her PICC line was. The patient denies any complaints of fever, chills, nausea, vomiting, diarrhea, constipation or headache. A chest x- ray was completed in the emergency department which shows a stable opacification of the left hemithorax. An ultrasound venous duplex was completed to her left upper extremity due to her complaints of pain and was negative for DVT, but was positive for superficial venous thrombosis. A 12-lead EKG was also completed in the emergency department which demonstrated normal sinus rhythm with a heart rate 77 BPM. Laboratory results showed a WBC count 27.2, hemoglobin 8.0, platelets 514, plasma lactic acid 3.5, BNP level 12,700 and troponin 0.018. Due to the patient being known to the cardiothoracic surgery service a consult was placed to Dr. Teddy Wilkins for further evaluation and treatment recommendations. Current oxygen saturation were 100% on 2 L nasal cannula. While examining her at her bedside the patient did develop some stuttering speech and a left facial droop and a code stroke was called. Review of Systems A 14 point review of systems was completed it was negative except as mentioned in HPI. - Constitutional Denies fever, Denies weakness, Denies weight gain, Denies weight loss - EENT Ears, nose, mouth and throat: Denies dysphagia, Denies headache, Denies nasal congestion, Denies nasal discharge, Denies swelling in mouth, Denies sore throat - Cardiovascular Reports decreased exercise tolerance, Reports dyspnea on exertion, Reports leg edema, Reports shortness of breath - Respiratory Reports congestion, Reports cough with sputum, Reports dyspnea, Reports hemoptysis, Reports home oxygen, Reports respiratory infections - Gastrointestinal Reports loss of appetite, Denies abdominal pain, Denies bloating, Denies change in bowel habits, Denies constipation, Denies diarrhea - Genitourinary Genitourinary: Denies dysuria, Denies flank pain, Denies hematuria - Musculoskeletal Denies atrophy, Denies frequent falls, Denies gait dysfunction, Denies leg numbness/tingling, Denies limitation of motion, Denies muscle weakness, Denies redness of joints, Denies shooting arm pain, Denies shooting leg pain - Integumentary Reports wounds (To her left chest previous chest tube insertion site), Denies color changes, Denies foot/leg ulcers - Neurological Reports tremors, Denies balance difficulties, Denies change in mentation, Denies change in smell/taste, Denies change in speech, Denies confusion, Denies double vision, Denies gait dysfunction, Denies headaches, Denies hearing difficulties, Denies loss of vision, Denies memory loss, Denies motor disturbance, Denies paralysis, Denies seizures, Denies sensory deficit, Denies tingling, Denies visual changes - Psychiatric Reports anxiety, Reports depression - Hematologic/Lymphatic Denies easy bruising, Denies lymphadenopathy Past Medical History Past Medical History: Atrial Fibrillation, Cancer, COPD, Diabetes Mellitus, Fibromyalgia, Hyperlipidemia, Hypertension Additional Past Medical History / Comment(s): A Fib. Hx of Cervical Cancer. Lung Cancer diagnosed 10/2019. SOB at times, hemoptysis occ. Wound healing Lt upper back. PICC line for daily IV AB Rx at Dr Dc. History of Any Multi-Drug Resistant Organisms: None Reported Past Surgical History: Hysterectomy Additional Past Surgical History / Comment(s): VAGINAL HYSTERECTOMY. Upper left lobectomy 12/2019; 02/03/20 Lt Thoracotomy, Lung decortication, Pectoralis major pedicle flap transposition. PICC line 02/15/20. Past Anesthesia/Blood Transfusion Reactions: No Reported Reaction, Family History of Problems w/ Anesthesia, Motion Sickness Additional Past Anesthesia/Blood Transfusion Reaction / Comm: Father had significant blood pressure dropping years ago. Past Psychological History: Anxiety, Bipolar, Depression Smoking Status: Former smoker Past Alcohol Use History: None Reported Past Drug Use History: None Reported - Past Family History Mother Family Medical History: Cancer, Diabetes Mellitus Additional Family Medical History / Comment(s): BREAST CANCER Father Family Medical History: Cancer Additional Family Medical History / Comment(s): LUNG CANCER Medications and Allergies Home Medications Medication Instructions Recorded Confirmed Type DULoxetine HCL [Cymbalta] 60 mg PO DAILY 06/04/16 03/17/20 History metFORMIN HCL 500 mg PO BID 12/28/19 03/17/20 History Albuterol Inhaler [Ventolin Hfa 2 puff INHALATION RT-QID PRN 01/29/20 03/17/20 History Inhaler] Bisoprolol Fumarate [Zebeta] 10 mg PO DAILY 01/29/20 03/17/20 History Magnesium Oxide [Mag-Ox] 400 mg PO BID #0 tab 01/29/20 03/17/20 Rx Pantoprazole Sodium 40 mg PO AC-BRKFST 01/29/20 03/17/20 History metroNIDAZOLE [Flagyl] 500 mg PO Q8HR #90 tab 02/12/20 03/17/20 Rx Ascorbic Acid [Vitamin C] 500 mg PO DAILY tab 02/15/20 03/17/20 Rx Furosemide [Lasix] 20 mg PO DAILY #30 tab 02/15/20 03/17/20 Rx Valsartan [Diovan] 160 mg PO DAILY #30 tab 02/15/20 03/17/20 Rx amLODIPine [Norvasc] 10 mg PO DAILY #30 tab 02/15/20 03/17/20 Rx hydrALAZINE HCL [Apresoline] 50 mg PO QID #120 tab 02/15/20 03/17/20 Rx Ibuprofen [Motrin] 600 mg PO Q8HR PRN 02/29/20 03/17/20 History Ferrous Sulfate [Iron (65 MG 325 mg PO W/LUNCH 03/09/20 03/17/20 History Elemental)] Ondansetron [Zofran] 4 mg PO Q6H PRN 03/09/20 03/17/20 History hydrOXYzine PAMOATE 50 mg PO HS 03/09/20 03/17/20 History Acetaminophen Tab [Tylenol] 650 mg PO Q6HR PRN tab 03/12/20 03/17/20 Rx Meloxicam [Mobic] 7.5 mg PO DAILY #60 tab 03/12/20 03/17/20 Rx Potassium Chloride ER [K-Dur 20] 20 meq PO DAILY #30 tab.er.prt 03/12/20 03/17/20 Rx guaiFENesin [Mucinex] 1,200 mg PO Q12HR #30 tablet.er 03/12/20 03/17/20 Rx traMADol HCl [Ultram] 50 mg PO Q6H PRN tab 03/12/20 03/17/20 Rx cefTRIAXone [Rocephin] 2 gm IVPB Q24H vial 03/13/20 03/17/20 Rx Allergies Allergy/AdvReac Type Severity Reaction Status Date / Time mold Allergy Unknown Dyspnea, Verified 03/17/20 13:25 Rash, Swelling Penicillins Allergy Unknown Verified 03/17/20 13:25 Childhood Surgical - Exam Vital Signs Temp Pulse Resp BP Pulse Ox 97.4 F L 77 22 94/74 100 03/17/20 09:33 03/17/20 09:33 03/17/20 09:33 03/17/20 09:33 03/17/20 09:33 This is a pleasant 55-year-old female patient who is currently lying in bed on the cardiac stepdown unit. She is in no acute distress, although during her examination she did develop some stuttering speech and inability to form a sentence with a left facial droop. Oxygen saturations are 100% on 2 L nasal cannula. She is awake, alert and oriented 3. - General well developed, well nourished, no distress, no pain, chronically ill - Eyes PERRL, normal ocular movement - ENT normal pinna, normal nares, normal mucosa, no hearing loss, no congestion - Neck Neck is supple, no lymphadenopathy. no masses, no bruits, trachea midline, no venous distension - Respiratory Lung sounds with few scattered crackles throughout her right lobes, diminished to her left lobe. No wheezes or rhonchi. Respirations are symmetrical and nonlabored. Oxygen saturation is 100% on 2 L nasal cannula. - Cardiovascular Regular rate and rhythm. S1 and S2 present, negative for S3, gallop or murmur. Remote telemetry showing normal sinus rhythm heart rate 79. - Abdomen Abdomen is soft, nontender and nondistended. Active bowel sounds present in all 4 abdominal quadrants. No guarding or rigidity. No organomegaly appreciated. - Genitourinary Deferred - Rectum Deferred - Integumentary Skin is warm and dry. Positive clubbing to her fingers. Left chest thoracotomy incision is clean, dry and approximated. There is a silver impregnated with dressing in place to one of her previous chest tube insertion sites with scant serosanguineous drainage. Trace edema to her bilateral lower extremities. no rash, no growths, no abnormal pigmentation - Neurologic Stuttering speech with inability to complete sentences. Left facial droop. - Musculoskeletal Moves all 4 extremities appropriately. - Psychiatric oriented to time, oriented to person, oriented to place, memory intact Results - Labs 03/17/20 10:07 03/17/20 10:07 Abnormal Lab Results - Last 24 Hours (Table) 03/17/20 03/17/20 03/17/20 Range/Units 10:07 10:07 10:07 WBC 27.2 H (3.8-10.6) k/uL RBC 2.96 L (3.80-5.40) m/uL Hgb 8.0 L (11.4-16.0) gm/dL Hct 26.6 L (34.0-46.0) % MCHC 30.2 L (31.0-37.0) g/dL RDW 17.7 H (11.5-15.5) % Plt Count 514 H (150-450) k/uL Neutrophils # 25.2 H (1.3-7.7) k/uL Sodium 136 L (137-145) mmol/L Glucose 146 H (74-99) mg/dL POC Glucose (mg/dL) (75-99) mg/dL Plasma Lactic Acid Orestes 3.5 H* (0.7-2.0) mmol/L Total Protein 5.6 L (6.3-8.2) g/dL Albumin 2.7 L (3.5-5.0) g/dL 03/17/20 03/17/20 Range/Units 13:07 15:55 WBC (3.8-10.6) k/uL RBC (3.80-5.40) m/uL Hgb (11.4-16.0) gm/dL Hct (34.0-46.0) % MCHC (31.0-37.0) g/dL RDW (11.5-15.5) % Plt Count (150-450) k/uL Neutrophils # (1.3-7.7) k/uL Sodium (137-145) mmol/L Glucose (74-99) mg/dL POC Glucose (mg/dL) 119 H (75-99) mg/dL Plasma Lactic Acid Orestes 2.2 H* (0.7-2.0) mmol/L Total Protein (6.3-8.2) g/dL Albumin (3.5-5.0) g/dL Diabetes panel 03/17/20 Range/Units 10:07 Sodium 136 L (137-145) mmol/L Potassium 4.2 (3.5-5.1) mmol/L Chloride 102 (98-107) mmol/L Carbon Dioxide 25 (22-30) mmol/L BUN 16 (7-17) mg/dL Creatinine 0.66 (0.52-1.04) mg/dL Glucose 146 H (74-99) mg/dL Calcium 8.5 (8.4-10.2) mg/dL AST 22 (14-36) U/L ALT 8 (4-34) U/L Alkaline Phosphatase 114 (38-126) U/L Total Protein 5.6 L (6.3-8.2) g/dL Albumin 2.7 L (3.5-5.0) g/dL Calcium panel 03/17/20 Range/Units 10:07 Calcium 8.5 (8.4-10.2) mg/dL Albumin 2.7 L (3.5-5.0) g/dL Pituitary panel 03/17/20 Range/Units 10:07 Sodium 136 L (137-145) mmol/L Potassium 4.2 (3.5-5.1) mmol/L Chloride 102 (98-107) mmol/L Carbon Dioxide 25 (22-30) mmol/L BUN 16 (7-17) mg/dL Creatinine 0.66 (0.52-1.04) mg/dL Glucose 146 H (74-99) mg/dL Calcium 8.5 (8.4-10.2) mg/dL Adrenal panel 03/17/20 Range/Units 10:07 Sodium 136 L (137-145) mmol/L Potassium 4.2 (3.5-5.1) mmol/L Chloride 102 (98-107) mmol/L Carbon Dioxide 25 (22-30) mmol/L BUN 16 (7-17) mg/dL Creatinine 0.66 (0.52-1.04) mg/dL Glucose 146 H (74-99) mg/dL Calcium 8.5 (8.4-10.2) mg/dL Total Bilirubin 0.3 (0.2-1.3) mg/dL AST 22 (14-36) U/L ALT 8 (4-34) U/L Alkaline Phosphatase 114 (38-126) U/L Total Protein 5.6 L (6.3-8.2) g/dL Albumin 2.7 L (3.5-5.0) g/dL - Imaging Chest x-ray: report reviewed, image reviewed EKG: image reviewed Assessment and Plan Assessment: 1. Stuttering speech with inability to complete a sentence with left facial droop, code stroke and progressive 2. Acute hypoxemic respiratory failure, secondary to left-sided tension hydrothorax with some mild shift of the heart and mediastinum to the right. Could be some component to heart failure as her BNP level on admission was greater than 12,000 3. History of empyema left lung with cultures positive for actinomyces odontolyticus, status post left thoracotomy, total lung decortication, pectoralis major pedicle flap transposition into the left pleural space, cryoablation of the intercostal nerves on 02/03/2020, currently receiving outpatient antibiotic treatments managed by infectious disease. 4. Leukocytosis, WBC count on admission 27.2, secondary to above 5. History of non-small cell lung cancer, poorly differentiated squamous cell carcinoma perforating the visceral pleura of the left lung, status post left anterior mediastinoscopy and lymph node biopsy on 12/02/2019 with subsequent robotic-assisted left upper lobectomy and mediastinal lymph node dissection and bronchoscopy for mucus plugging at the conclusion of the case on 12/31/2019. 6. History of hypertension 7. History of hyperlipidemia 8. Type 2 diabetes mellitus 9. Remote history of tobacco dependence 10. History of cervical cancer status post hysterectomy 11. History of anxiety 12. History of bipolar disorder Plan: The patient was seen and examined at her bedside on the cardiac stepdown unit. Her chart and diagnostics were reviewed. Her case was discussed in detail with Dr. Teddy Wilkins from cardiothoracic surgery. During her examination a code stroke was called due to some stuttering speech and inability for the patient to complete a sentence and associated with a left facial droop. No surgical intervention is warranted at this time, recommendations are to continue with IV antibiotic management. Medical management other comorbidities per primary care service. Bronchodilators and oxygen management per pulmonary medicine recommendations. Continue to follow labs and chest x-rays. Encourage use of her incentive spirometry 10 times every hour. Increase activity as tolerated. Physical and occupational therapy has been consulted. Thank you for this consult and we look for to following with you in the care with more recommendations to follow based on her clinical course. Time with Patient: Greater than 30
[2020-03-17] MEDS: INSULIN ASPART (NovoLOG) 100 UNIT/ML VIAL SQ SCH ×2 (16:56→21:38)
[2020-03-17] MEDS: HYDROCORTISONE SUCCINATE 100 MG/2 ML VIAL IV SCH ×2 (17:05→21:36)
[2020-03-17] MEDS: VANCOMYCIN 1,250 MG in SODIUM CHLORIDE 0.9% 250 ML IVPB SCH ×2 (17:06→21:37)
[2020-03-17 18:08] VITALS: TEMP 97.5
--- NOTE | 2020-03-17 19:35 | P.HPIM ---
History of Present Illness H&P Date: 03/17/20 Chief Complaint: Shortness of breath with activity Is a 55-year-old female that is well known to the practice. She has a known history of lung cancer and has received a left upper lobectomy and then subsequently developed an empyema with culture showing actinmyces odontolyticus and is being followed on an outpatient basis by infectious disease. She is receiving IV antibiotic therapy through a PICC line that has just been changed to her right arm from her left arm earlier this week. She has a past medical history of atrial fib, cancer, COPD, diabetes mellitus, fibromyalgia, hyperlipidemia, hypertension. She is also noted to have history of chronic tobacco use, anxiety, bipolar and cervical cancer with past hysterectomy. She was admitted on 03/07/2020 for similar symptoms on that admission she was discharged on 03/12/2020. Presented to the emergency room today with complaints of shortness of breath with activity in lower extremity edema that has worsened over the past several days. It has gotten to the point that she could not walk from the chair to the bathroom without needing a break in between. She denies pain at this time with the exception of some soreness to the left side of her back where her surgical incision is. Currently she denies constipation or diarrhea,nausea/vomiting, fever, chills, or headache. Earlier today while being evaluated by cardiothoracic SCHOOL NURSE patient showed signs of possible stroke with difficulty with speech and facial droop of the left side. A code stroke was called she was evaluated, taken for CT which was negative for intracranial hemorrhage or midline shift. It is noted to show mild to minimal diffuse age-related cerebral atrophy and chronic small vessel ischemic changes. Chest x-ray shows stable place indications to the right hemothorax, and at the right lung appears clear. Earlier in the day she complained of left arm pain being where her PICC line was placed and removed earlier in the week and ultrasound was completed on that extremity. The results of the ultrasound superficial venous thrombosis of the basilic vein as seen on the recent ultrasound and no sonographic evidence of DVT within the visualized left upper extremity. An twelve-lead EKG was completed in the emergency room and was shown to be a stable heart rate is 77 bpm sinus rhythm. Today's lab work elevated white blood cell count 27.2, hemoglobin 8.0, hematocrit of 26.6, platelet count of 514, neutrophils 25.2. Coagulation studies show PT of 11.3, INR 1.1, and a PTT of 22.3. Chemistries sodium 136, potassium 4.2, magnesium 1.7, LDL T8, AST 22, chloride 102, carbon dioxide 25, BUS 16, creatinine 0.66 GFR is greater than 90, glucose was 146 on lab work. Initial lactic acid today was 3.5, troponin of 0.018 and BnP level of 12,700. Review of Systems Constitutional Denies fever, weakness, weight gain, weight loss HEENT Denies dysphagia, headache, nasal congestion, nasal discharge, slightly in the mouth, sore throat Respiratory Complains of congestion, cough with sputum, dyspnea, home oxygen, respiratory infections, Gastrointestinal Complains of loss of appetite, denies abdominal pain, bloating, change in bowel habits, constipation, diarrhea Genitourinary Denies dysuria, flank pain, hematuria. Musculoskeletal Denies atrophy, frequent falls, gait dysfunction, leg numbness or tingling, limitation of motion, muscle weakness, shooting arm pain, shooting leg pain,. Integumentary Reports surgical wound to left back and left chest (old chest tube site scars and surgical incision). Denies other rashes or lesions. Neurological Reports tremors, denies balance difficulties although reports fall night before last where her head hit the floor, denies change in mentation, change in smell or taste, change in speech, confusion, double vision, gait dysfunction, headaches, hearing difficulties, memory loss, motor disturbance, paralysis, seizures, sensory deficit, denies tingling or visual changes. Psychiatric Reports anxiety, reports depression Hematologic\lymphatic Denies lymphadenopathy or bruising easily. Constitutional: Reports chills Past Medical History Past Medical History: Atrial Fibrillation, Cancer, COPD, Diabetes Mellitus, Fibromyalgia, Hyperlipidemia, Hypertension Additional Past Medical History / Comment(s): A Fib. Hx of Cervical Cancer. Lung Cancer diagnosed 10/2019. SOB at times, hemoptysis occ. Wound healing Lt upper back. PICC line for daily IV AB Rx at Dr Dc. History of Any Multi-Drug Resistant Organisms: None Reported Past Surgical History: Hysterectomy Additional Past Surgical History / Comment(s): VAGINAL HYSTERECTOMY. Upper left lobectomy 12/2019; 02/03/20 Lt Thoracotomy, Lung decortication, Pectoralis major pedicle flap transposition. PICC line 02/15/20. Past Anesthesia/Blood Transfusion Reactions: No Reported Reaction, Family History of Problems w/ Anesthesia, Motion Sickness Additional Past Anesthesia/Blood Transfusion Reaction / Comment(s): Father had significant blood pressure dropping years ago. Past Psychological History: Anxiety, Bipolar, Depression Smoking Status: Former smoker Past Alcohol Use History: None Reported Past Drug Use History: None Reported - Past Family History Mother Family Medical History: Cancer, Diabetes Mellitus Additional Family Medical History / Comment(s): BREAST CANCER Father Family Medical History: Cancer Additional Family Medical History / Comment(s): LUNG CANCER Medications and Allergies Home Medications Medication Instructions Recorded Confirmed Type DULoxetine HCL [Cymbalta] 60 mg PO DAILY 06/04/16 03/17/20 History metFORMIN HCL 500 mg PO BID 12/28/19 03/17/20 History Albuterol Inhaler [Ventolin Hfa 2 puff INHALATION RT-QID PRN 01/29/20 03/17/20 History Inhaler] Bisoprolol Fumarate [Zebeta] 10 mg PO DAILY 01/29/20 03/17/20 History Magnesium Oxide [Mag-Ox] 400 mg PO BID #0 tab 01/29/20 03/17/20 Rx Pantoprazole Sodium 40 mg PO AC-BRKFST 01/29/20 03/17/20 History metroNIDAZOLE [Flagyl] 500 mg PO Q8HR #90 tab 02/12/20 03/17/20 Rx Ascorbic Acid [Vitamin C] 500 mg PO DAILY tab 02/15/20 03/17/20 Rx Furosemide [Lasix] 20 mg PO DAILY #30 tab 02/15/20 03/17/20 Rx Valsartan [Diovan] 160 mg PO DAILY #30 tab 02/15/20 03/17/20 Rx amLODIPine [Norvasc] 10 mg PO DAILY #30 tab 02/15/20 03/17/20 Rx hydrALAZINE HCL [Apresoline] 50 mg PO QID #120 tab 02/15/20 03/17/20 Rx Ibuprofen [Motrin] 600 mg PO Q8HR PRN 02/29/20 03/17/20 History Ferrous Sulfate [Iron (65 MG 325 mg PO W/LUNCH 03/09/20 03/17/20 History Elemental)] Ondansetron [Zofran] 4 mg PO Q6H PRN 03/09/20 03/17/20 History hydrOXYzine PAMOATE 50 mg PO HS 03/09/20 03/17/20 History Acetaminophen Tab [Tylenol] 650 mg PO Q6HR PRN tab 03/12/20 03/17/20 Rx Meloxicam [Mobic] 7.5 mg PO DAILY #60 tab 03/12/20 03/17/20 Rx Potassium Chloride ER [K-Dur 20] 20 meq PO DAILY #30 tab.er.prt 03/12/20 03/17/20 Rx guaiFENesin [Mucinex] 1,200 mg PO Q12HR #30 tablet.er 03/12/20 03/17/20 Rx traMADol HCl [Ultram] 50 mg PO Q6H PRN tab 03/12/20 03/17/20 Rx cefTRIAXone [Rocephin] 2 gm IVPB Q24H vial 03/13/20 03/17/20 Rx Allergies Allergy/AdvReac Type Severity Reaction Status Date / Time mold Allergy Unknown Dyspnea, Verified 03/17/20 13:25 Rash, Swelling Penicillins Allergy Unknown Verified 03/17/20 13:25 Childhood Physical Exam Vitals: Vital Signs Temp Pulse Pulse Resp BP BP Pulse Ox 03/17/20 18:31 100 03/17/20 18:17 92 03/17/20 16:00 97.5 F L 71 24 97/60 99 03/17/20 13:00 97.1 F L 71 23 96/60 98 03/17/20 12:19 71 20 90/63 98 03/17/20 12:00 71 23 100 03/17/20 11:00 75 23 03/17/20 10:04 100 03/17/20 09:59 16 03/17/20 09:33 97.4 F L 77 22 94/74 100 Intake and Output 03/17/20 03/17/20 03/17/20 06:59 14:59 22:59 Other: Weight 58.967 kg GENERAL: Well developed, chronically ill, well-nourished and in no acute distress. HEAD: Atraumatic, normocephalic. EYES: Pupils equal round and reactive to light, extraocular movements intact, sc betina anicteric, conjunctiva are normal. ENT:nares patent, oropharynx clear without exudates. Moist mucous membranes. NECK: Normal range of motion, supple without lymphadenopathy or JVD, no thyromegaly LUNGS: Breath sound on the right side is rhonchorous throughout. The left side diminished with crackles in the base. Respirations are symmetrical and nonlabored. Oxygen saturation 100% 3 L nasal cannula HEART: Regular rate and rhythm without murmurs, rubs or gallops.S1S2 Normal. Remote telemetry showing sinus rhythm at 78. ABDOMEN: Soft, nontender, normoactive bowel sounds. No guarding, no rebound. No masses appreciated. EXTREMITIES: Normal range of motion, no pitting or edema. clubbing of fingers or cyanosis. NEUROLOGICAL: Cranial nerves II through XII grossly intact. Normal speech, equal purchasing department clerk with +3/5 for muscle strength. PSYCH: Normal mood, normal affect. SKIN: Warm, Dry, normal turgor, no rashes or lesions noted, noted left thoracotomy incision that is clean and dry and approximate. Trace edema noted bilateral lower extremities. Results CBC & Chem 7: 03/17/20 10:07 03/17/20 10:07 Labs: Abnormal Lab Results - Last 24 Hours (Table) 03/17/20 03/17/20 03/17/20 Range/Units 10:07 10:07 10:07 WBC 27.2 H (3.8-10.6) k/uL RBC 2.96 L (3.80-5.40) m/uL Hgb 8.0 L (11.4-16.0) gm/dL Hct 26.6 L (34.0-46.0) % MCHC 30.2 L (31.0-37.0) g/dL RDW 17.7 H (11.5-15.5) % Plt Count 514 H (150-450) k/uL Neutrophils # 25.2 H (1.3-7.7) k/uL Sodium 136 L (137-145) mmol/L Glucose 146 H (74-99) mg/dL POC Glucose (mg/dL) (75-99) mg/dL Plasma Lactic Acid Orestes 3.5 H* (0.7-2.0) mmol/L Total Protein 5.6 L (6.3-8.2) g/dL Albumin 2.7 L (3.5-5.0) g/dL 03/17/20 03/17/20 03/17/20 Range/Units 13:07 15:55 16:31 WBC (3.8-10.6) k/uL RBC (3.80-5.40) m/uL Hgb (11.4-16.0) gm/dL Hct (34.0-46.0) % MCHC (31.0-37.0) g/dL RDW (11.5-15.5) % Plt Count (150-450) k/uL Neutrophils # (1.3-7.7) k/uL Sodium (137-145) mmol/L Glucose (74-99) mg/dL POC Glucose (mg/dL) 119 H (75-99) mg/dL Plasma Lactic Acid Orestes 2.2 H* 3.2 H* (0.7-2.0) mmol/L Total Protein (6.3-8.2) g/dL Albumin (3.5-5.0) g/dL Thrombosis Risk Factor Assmnt - DVT/VTE Prophylaxis DVT/VTE Prophylaxis: Mechanical Prophylaxis ordered - Choose All That Apply Each Factor Represents 1 point: Abnormal pulmonary function (COPD), Age 41-60 years, Heart failure (<1month), Serious lung disease incl. pneumonia (< 1month) Each Risk Factor Represents 2 Points: Central venous access Thrombosis Risk Factor Assessment Total Risk Factor Score: 6 Thrombosis Risk Factor Assessment Level: High Risk Assessment and Plan (1) Anemia Current Visit: Yes Status: Acute Code(s): D64.9 - ANEMIA, UNSPECIFIED SNOMED Code(s): 300392845 (2) Lactic acidosis Current Visit: Yes Status: Acute Code(s): E87.2 - ACIDOSIS SNOMED Code(s): 13932429 (3) Sepsis Current Visit: Yes Status: Acute Code(s): A41.9 - SEPSIS, UNSPECIFIED ORGANISM SNOMED Code(s): 67337541 (4) Cavitary lesion of lung Current Visit: No Status: Acute Priority: High Code(s): J98.4 - OTHER DISORDERS OF LUNG SNOMED Code(s): 854763857 (5) Cough Current Visit: No Status: Acute Code(s): R05 - COUGH SNOMED Code(s): 75647998 (6) Fibromyalgia Current Visit: No Status: Acute Code(s): M79.7 - FIBROMYALGIA SNOMED Code(s): 976708726 (7) S/P pneumonectomy Current Visit: No Status: Acute Code(s): Z90.2 - ACQUIRED ABSENCE OF LUNG [PART OF] SNOMED Code(s): 919009382 (8) COPD (chronic obstructive pulmonary disease) Current Visit: No Status: Chronic Priority: Medium Code(s): J44.9 - CHRONIC OBSTRUCTIVE PULMONARY DISEASE, UNSPECIFIED SNOMED Code(s): 89414557 (9) Essential (primary) hypertension Current Visit: No Status: Chronic Priority: Medium Code(s): I10 - ESSENTIA L (PRIMARY) HYPERTENSION SNOMED Code(s): 27119256 (10) Major depressive disorder, recurrent, moderate Current Visit: No Status: Chronic Priority: Medium Code(s): F33.1 - MAJOR DEPRESSIVE DISORDER, RECURRENT, MODERATE SNOMED Code(s): 950596991 (11) Microcytic anemia Current Visit: No Status: Chronic Priority: Medium Code(s): D50.9 - IRON DEFICIENCY ANEMIA, UNSPECIFIED SNOMED Code(s): 343098258 (12) S/P lobectomy of lung Current Visit: No Status: Chronic Priority: Low Code(s): Z90.2 - ACQUIRED ABSENCE OF LUNG [PART OF] SNOMED Code(s): 46633973823690661 (13) Type 2 diabetes mellitus without complications Current Visit: No Status: Chronic Priority: Medium Code(s): E11.9 - TYPE 2 DIABETES MELLITUS WITHOUT COMPLICATIONS SNOMED Code(s): 207055719 Plan: 1. Continue with IV antibiotics. 2. Follow pulmonary medicine recommendations for bronchodilators and oxygen management. 3. Continue to follow daily labs and x-rays. 4. Continue to monitor vital signs. 5. Follow neurology recommendations for questionable TIA. 6. Pneumatic stockings for DVT prophylaxis. 7. Encourage incentive spirometry 10 times an hour while awake. 8. As patient will tolerate increase activity. 9. Therapy and occupational therapy both for the consult. 10. We'll hold metformin at this time, elevated lactic acid. 11. We'll follow cardiothoracic recommendations. 12. We will reassess again tomorrow.
[2020-03-17] MEDS ORDERED: HYDROmorphone 0.5 MG/0.5 ML SYRINGE IM PRN (19:43)
[2020-03-17] MEDS ORDERED: FUROSEMIDE 10 MG/ML 10 ML VIAL IV STA (19:59)
[2020-03-17] MEDS ORDERED: ALBUTEROL NEBULIZED 2.5 MG/3 ML INHALATION SCH (20:00)
[2020-03-17] MEDS: ALBUTEROL NEBULIZED 2.5 MG/3 ML INHALATION PRN (20:19)
[2020-03-17 20:36] LABS: Glucose,Whole Blood 149 mg/dL (75-99)
[2020-03-17] MEDS ORDERED: MAGNESIUM OXIDE 400 MG TAB PO SCH (21:00)
--- NOTE | 2020-03-17 23:04 | P.CNNES ---
History of Present Illness Consult date: 03/17/20 Requesting physician: Hunter Vu Jr Reason for Consult: Stroke code, rule out TIA History of Present Illness: Patient is a 55-year-old female admitted to the hospital today for shortness of breath of 3 days' duration. Patient has a recent history of left upper lobectomy, status post left thoracotomy with total lung decortication, secondary to poorly differentiated squamous cell lung carcinoma, on 12/31/2019. Patient states that she has been diagnosed with empyema and is currently on antibiotics. Patient was admitted to the hospital today for shortness of breath. While she was being examined by the surgeon, patient was noted to have stuttering speech and left facial droop, for which stroke code was initiated. It was also reported that she was having difficulty finding words, completing sentences, and in some words with hiccup type sound. Patient's blood pressure has been running very low, 90/60, pulse rate 78, and she is afebrile. Stroke neurologist/interventional neurologist recommended no TPA, recommend a neuro consult, and start aspirin and Plavix. Patient tells me that she was not taking any antiplatelet medication until just 2 days ago, when she started taking aspirin 325 mg daily. She did take a full aspirin this morning too. Patient did not have any other focal symptoms like numbness tingling diplopia blurred vision, loss of vision, headache. Patient states that it lasted for about 10-15 minutes and then went away. Patient underwent CT head showed no acute intracranial hemorrhage or midline shift. There is mild to minimal diffuse age-related cerebral atrophy and chronic small vessel ischemic change redemonstrated. Chest x-ray showed stable opacification of the left hemithorax. Right lung appears clear. Ultrasound of the left upper extremity showed superficial venous thrombosis in the basic brain. No Sonographic Evidence of DVT within the Visualized Left Upper Ex tremity. EKG Shows Normal Sinus Rhythm. Anterior Infarct, Age Indeterminant. Patient's blood test shows WBC 27.2, hemoglobin 8.0, platelets 514. ESR 47, sodium 136 potassium 4.2 renal functions normal. Hemoglobin A1c 7.4 on 01/31/2020. Liver panel normal. TFTs normal. Patient had an MRI of brain with and without contrast on 11/14/2019, for lung cancer, which was negative for any metastasis. Small area of white matter increased signal in the right internal capsule. Patient had a recent 2-D echo on 01/02/2020, which revealed sinus rhythm, left ventricular size is normal. Borderline concentric LVH. EF is 55- 60%. Mild MR. Mild TR. Patient started taking aspirin 325 mg daily just in the past 2 days. Patient has history of diabetes for the last 3-5 years, hypertension. She has s moked 1 pack per day for 40 years, quit in October 2019. She did alcoholism in her early age years. Review of Systems Shortness of breath, anxiety. Denies any numbness tingling focal weakness. Denies visual issues, headache. All other review of systems unremarkable. Past Medical History Past Medical History: Atrial Fibrillation, Cancer, COPD, Diabetes Mellitus, Fibromyalgia, Hyperlipidemia, Hypertension Additional Past Medical History / Comment(s): A Fib. Hx of Cervical Cancer. Lung Cancer diagnosed 10/2019. SOB at times, hemoptysis occ. Wound healing Lt upper back. PICC line for daily IV AB Rx at Dr Champion's. History of Any Multi-Drug Resistant Organisms: None Reported Past Surgical History: Hysterectomy Additional Past Surgical History / Comment(s): VAGINAL HYSTERECTOMY. Upper left lobectomy 12/2019; 02/03/20 Lt Thoracotomy, Lung decortication, Pectoralis major pedicle flap transposition. PICC line 02/15/20. Past Anesthesia/Blood Transfusion Reactions: No Reported Reaction, Family Histor y of Problems w/ Anesthesia, Motion Sickness Additional Past Anesthesia/Blood Transfusion Reaction / Comment(s): Father had significant blood pressure dropping years ago. Past Psychological History: Anxiety, Bipolar, Depression Smoking Status: Former smoker Past Alcohol Use History: None Reported Past Drug Use History: None Reported - Past Family History Mother Family Medical History: Cancer, Diabetes Mellitus Additional Family Medical History / Comment(s): BREAST CANCER Father Family Medical History: Cancer Additional Family Medical History / Comment(s): LUNG CANCER Medications and Allergies Home Medications Medication Instructions Recorded Confirmed Type DULoxetine HCL [Cymbalta] 60 mg PO DAILY 06/04/16 03/17/20 History metFORMIN HCL 500 mg PO BID 12/28/19 03/17/20 History Albuterol Inhaler [Ventolin Hfa 2 puff INHALATION RT-QID PRN 01/29/20 03/17/20 History Inhaler] Bisoprolol Fumarate [Zebeta] 10 mg PO DAILY 01/29/20 03/17/20 History Magnesium Oxide [Mag-Ox] 400 mg PO BID #0 tab 01/29/20 03/17/20 Rx Pantoprazole Sodium 40 mg PO AC-BRKFST 01/29/20 03/17/20 History metroNIDAZOLE [Flagyl] 500 mg PO Q8HR #90 tab 02/12/20 03/17/20 Rx Ascorbic Acid [Vitamin C] 500 mg PO DAILY tab 02/15/20 03/17/20 Rx Furosemide [Lasix] 20 mg PO DAILY #30 tab 02/15/20 03/17/20 Rx Valsartan [Diovan] 160 mg PO DAILY #30 tab 02/15/20 03/17/20 Rx amLODIPine [Norvasc] 10 mg PO DAILY #30 tab 02/15/20 03/17/20 Rx hydrALAZINE HCL [Apresoline] 50 mg PO QID #120 tab 02/15/20 03/17/20 Rx Ibuprofen [Motrin] 600 mg PO Q8HR PRN 02/29/20 03/17/20 History Ferrous Sulfate [Iron (65 MG 325 mg PO W/LUNCH 03/09/20 03/17/20 History Elemental)] Ondansetron [Zofran] 4 mg PO Q6H PRN 03/09/20 03/17/20 History hydrOXYzine PAMOATE 50 mg PO HS 03/09/20 03/17/20 History Acetaminophen Tab [Tylenol] 650 mg PO Q6HR PRN tab 03/12/20 03/17/20 Rx Meloxicam [Mobic] 7.5 mg PO DAILY #60 tab 03/12/20 03/17/20 Rx Potassium Chloride ER [K-Dur 20] 20 meq PO DAILY #30 tab.er.prt 03/12/20 03/17/20 Rx guaiFENesin [Mucinex] 1,200 mg PO Q12HR #30 tablet.er 03/12/20 03/17/20 Rx traMADol HCl [Ultram] 50 mg PO Q6H PRN tab 03/12/20 03/17/20 Rx cefTRIAXone [Rocephin] 2 gm IVPB Q24H vial 03/13/20 03/17/20 Rx Allergies Allergy/AdvReac Type Severity Reaction Status Date / Time mold Allergy Unknown Dyspnea, Verified 03/17/20 13:25 Rash, Swelling Penicillins Allergy Unknown Verified 03/17/20 13:25 Childhood Physical Examination - Vital Signs Vital Signs: Vital Signs Temp Pulse Pulse Resp BP BP Pulse Ox 03/17/20 20:28 80 03/17/20 20:19 78 03/17/20 20:00 78 20 90/60 100 03/17/20 18:31 100 03/17/20 18:17 92 03/17/20 16:00 97.5 F L 71 24 97/60 99 03/17/20 13:00 97.1 F L 71 23 96/60 98 03/17/20 12:19 71 20 90/63 98 03/17/20 12:00 71 23 100 03/17/20 11:00 75 23 03/17/20 10:04 100 03/17/20 09:59 16 03/17/20 09:33 97.4 F L 77 22 94/74 100 Intake and Output 03/17/20 03/17/20 03/17/20 06:59 14:59 22:59 Other: Weight 58.967 kg On examination patient is a middle aged female, appears older than his stated age. She is alert and awake, fully oriented. She appears somewhat anxious. Her speech and language functions are normal. Attention, gelacio ntration and fund of knowledge is adequate. On cranial exam showed pupils are round and reactive to light, visual cornejo are full, extraocular muscles are intact. Face is slightly asymmetric on the left, but that is her baseline as per patient. Tongue protrudes to the midline. Palatal elevation and sensation normal. Hearing and shoulder shrug normal. On muscle strength testing there is no pronator drift and the strength is normal in arms and legs distally and proximally. Reflexes are 1+ to 2 and hunters are downgoing. Sensory touch is equal. No ataxia for [id number] testing. Tone and bulk of muscles normal. Gait deferred. There is no obvious bruit, S1 and S2 audible. No edema. Patient does have clubbing of her fingers. Abdomen is soft nontender. Results - Laboratory Findings CBC and BMP: 03/17/20 10:07 03/17/20 10:07 Abnormal Lab Findings: Abnormal Labs 03/17/20 03/17/20 03/17/20 10:07 10:07 10:07 WBC 27.2 H RBC 2.96 L Hgb 8.0 L Hct 26.6 L MCHC 30.2 L RDW 17.7 H Plt Count 514 H Neutrophils # 25.2 H Sodium 136 L Glucose 146 H POC Glucose (mg/dL) Plasma Lactic Acid Orestes 3.5 H* Total Protein 5.6 L Albumin 2.7 L 03/17/20 03/17/20 03/17/20 13:07 15:55 16:31 WBC RBC Hgb Hct MCHC RDW Plt Count Neutrophils # Sodium Glucose POC Glucose (mg/dL) 119 H Plasma Lactic Acid Orestes 2.2 H* 3.2 H* Total Protein Albumin 03/17/20 03/17/20 19:23 20:35 WBC RBC Hgb Hct MCHC RDW Plt Count Neutrophils # Sodium Glucose POC Glucose (mg/dL) 149 H Plasma Lactic Acid Orestes 3.2 H* Total Protein Albumin Assessment and Plan Assessment: * Questionable TIA manifesting with some intermittent stuttering speech. No other focal symptoms with it. Current neurological examination is normal with NIH stroke scale 0. * Newly diagnosed lung cancer, status post lobectomy. Patient has developed empyema for which she is on antibiotics. * Hypertension * Diabetes * X tobacco use. Plan: * Urgent carotid Doppler to rule out stenosis. * Continue aspirin 325 mg daily. Patient has received aspirin this morning at home prior to arrival. * Patient is significantly anemic with hemoglobin of 8.0. She recently had thoracotomy couple months ago. I would avoid dual antiplatelet medication at this time because of these reasons. It is also not very clear if these episodes represent TIA or some stuttering related to recent thoracic surgery with diaphragmatic irritation. * If she has any definitive TIA, only then dual antiplatelet medication may be indicated. * We will check EEG to rule out any epileptiform activity. * Fasting a.m. lipid panel and hemoglobin A1c.
[2020-03-18] MEDS: ALBUTEROL NEBULIZED 2.5 MG/3 ML INHALATION PRN (00:07)
[2020-03-18 01:25] VITALS: PULSE 85
[2020-03-18] MEDS ORDERED: CALCIUM CHLORIDE 100 MG/ML 10 ML SYRINGE ONE (02:00)
[2020-03-18] MEDS ORDERED: EPINEPHrine 10 ML SYRINGE (0.1 MG/ML) ONE (02:00)
[2020-03-18] MEDS ORDERED: SODIUM BICARB 8.4% 50 ML SYR (1 MEQ/ML) ONE ×2 (02:00→02:12)
[2020-03-18 02:19] LABS: Glucose,Whole Blood 156 mg/dL (75-99)
[2020-03-18] MEDS ORDERED: CHLORHEXIDINE GLUCONATE 15 ML CUP MUCOUS MEM ONE (02:33)
[2020-03-18 02:55] VITALS: BP 123/76; RESP 20
--- NOTE | 2020-03-18 03:04 | P.PN ---
Progress Note - Text Progress Note Date: 03/18/20 Tyler Dale Team note Tyler dale activated at 2:03 am. Arrived on the scene shortly after. Patient was noted to be undergoing CPR. Notified by the RN that the patient was noted to be in respiratory distress just a few minutes prior with hypotension and bradycardia. She was placed on a non-rebreather and an A-team was called, though she subsequently turned pale and became unresponsive. Code blue was activated. The patient's chart was personally reviewed by me including laboratory evaluations and imaging. The patient was noted to be in asystole on the monitor. She was given Epinephrine IVP x 7, Sodium bicarb IVP x 2, and Ca-chloride IVP x 1. She was intubated at 2:10. The patient continued to be in asystole for the majority of the resuscitative efforts. The patient on 2:26 am. was notified by junior technical writer in person at the bedside. Dr Vu was notified by the RN @ 2:30 with no response as of 3:00 am.
--- NOTE | 2020-03-18 08:24 | P.CONS ---
History of Present Illness - Reason for Consult Consult date: 03/17/20 sepsis Requesting physician: Hunter Vu Jr - Chief Complaint shortness of breath x 2 days - History of Present Illness Patient is a 55-year-old female with a past medical he significant for lung cancer in this patient with status post left lobectomy in this patient clinical course complicated by empyema in this patient who recently did have extensive surgery with thoracotomy and pectoralis muscle interposition in the thoracic cavity patient was recently admitted to the hospital with the pain and swelling to the area she did have some serous drainage from her left chest wall incision site and the patient did have drainage of the fluid by the PCP and cul ture were negative patient was evaluated by CT surgery and recommended no surgical intervention at that time her previous culture positive for actinomyces and the patient was getting Rocephin 2 g daily in order Flagyl in the outpatient setting and recently did have a problem with the left arm PEG site superficial blood clot in the basilic vein patient left arm PICC line was discontinued and she currently he did have a PICC line in the right arm patient is now presenting to the ER this morning with a chief complaint of shortness of breath the pain has been getting worse for the last 2 to 3 days shortness of breath on minimal exertion patient did have pain on the left side of the chest occasionally not persistent and can be 4 to 5-10 patient did have a cough but no purulent sputum patient complaining of feeling fatigue and weak and increased swelling to the legs with the symptom the patient has been evaluated by ER physician on arrival to the ER the patient has been afebrile patient did have white count of 27,000 patient did have a chest x-ray which was stable opacification of the right hemithorax in the right lung apices were clear patient also have left upper extremity Doppler was negative for DVT did show superficial thrombosis CT of the brain negative for any bleed infectious disease was consulted for further management of antibiotic therapy, patient will be started on Levaquin and vancomycin by admitting team. Review of Systems Positive point has been mentioned in HPI rest of the systems are negative Past Medical History Past Medical History: Atrial Fibrillation, Cancer, COPD, Diabetes Mellitus, Fibromyalgia, Hyperlipidemia, Hypertension Additional Past Medical History / Comment(s): A Fib. Hx of Cervical Cancer. Lung Cancer diagnosed 10/2019. SOB at times, hemoptysis occ. Wound healing Lt upper back. PICC line for daily IV AB Rx at Dr Dc. History of Any Multi-Drug Resistant Organisms: None Reported Past Surgical History: Hysterectomy Additional Past Surgical History / Comment(s): VAGINAL HYSTERECTOMY. Upper left lobectomy 12/2019; 02/03/20 Lt Thoracotomy, Lung decortication, Pectoralis major pedicle flap transposition. PICC line 02/15/20. Past Anesthesia/Blood Transfusion Reactions: No Reported Reaction, Family History of Problems w/ Anesthesia, Motion Sickness Additional Past Anesthesia/Blood Transfusion Reaction / Comm: Father had significant blood pressure dropping years ago. Past Psychological History: Anxiety, Bipolar, Depression Smoking Status: Former smoker Past Alcohol Use History: None Reported Past Drug Use History: None Reported - Past Family History Mother Family Medical History: Cancer, Diabetes Mellitus Additional Family Medical History / Comment(s): BREAST CANCER Father Family Medical History: Cancer Additional Family Medical History / Comment(s): LUNG CANCER Medications and Allergies Home Medications Medication Instructions Recorded Confirmed Type DULoxetine HCL [Cymbalta] 60 mg PO DAILY 06/04/16 03/17/20 History metFORMIN HCL 500 mg PO BID 12/28/19 03/17/20 History Albuterol Inhaler [Ventolin Hfa 2 puff INHALATION RT-QID PRN 01/29/20 03/17/20 History Inhaler] Bisoprolol Fumarate [Zebeta] 10 mg PO DAILY 01/29/20 03/17/20 History Magnesium Oxide [Mag-Ox] 400 mg PO BID #0 tab 01/29/20 03/17/20 Rx Pantoprazole Sodium 40 mg PO AC-BRKFST 01/29/20 03/17/20 History metroNIDAZOLE [Flagyl] 500 mg PO Q8HR #90 tab 02/12/20 03/17/20 Rx Ascorbic Acid [Vitamin C] 500 mg PO DAILY tab 02/15/20 03/17/20 Rx Furosemide [Lasix] 20 mg PO DAILY #30 tab 02/15/20 03/17/20 Rx Valsartan [Diovan] 160 mg PO DAILY #30 tab 02/15/20 03/17/20 Rx amLODIPine [Norvasc] 10 mg PO DAILY #30 tab 02/15/20 03/17/20 Rx hydrALAZINE HCL [Apresoline] 50 mg PO QID #120 tab 02/15/20 03/17/20 Rx Ibuprofen [Motrin] 600 mg PO Q8HR PRN 02/29/20 03/17/20 History Ferrous Sulfate [Iron (65 MG 325 mg PO W/LUNCH 03/09/20 03/17/20 History Elemental)] Ondansetron [Zofran] 4 mg PO Q6H PRN 03/09/20 03/17/20 History hydrOXYzine PAMOATE 50 mg PO HS 03/09/20 03/17/20 History Acetaminophen Tab [Tylenol] 650 mg PO Q6HR PRN tab 03/12/20 03/17/20 Rx Meloxicam [Mobic] 7.5 mg PO DAILY #60 tab 03/12/20 03/17/20 Rx Potassium Chloride ER [K-Dur 20] 20 meq PO DAILY #30 tab.er.prt 03/12/20 03/17/20 Rx guaiFENesin [Mucinex] 1,200 mg PO Q12HR #30 tablet.er 03/12/20 03/17/20 Rx traMADol HCl [Ultram] 50 mg PO Q6H PRN tab 03/12/20 03/17/20 Rx cefTRIAXone [Rocephin] 2 gm IVPB Q24H vial 03/13/20 03/17/20 Rx Allergies Allergy/AdvReac Type Severity Reaction Status Date / Time mold Allergy Unknown Dyspnea, Verified 03/17/20 13:25 Rash, Swelling Penicillins Allergy Unknown Verified 03/17/20 13:25 Childhood Physical Exam Vitals: Vital Signs Temp Pulse Pulse Resp BP BP Pulse Ox 03/18/20 00:17 80 03/18/20 00:10 20 123/76 94 L 03/18/20 00:07 76 03/18/20 00:00 85 18 03/17/20 20:45 78 20 113/68 96 03/17/20 20:28 80 03/17/20 20:19 78 03/17/20 20:00 78 20 90/60 100 03/17/20 18:31 100 03/17/20 18:17 92 03/17/20 16:00 97.5 F L 71 24 97/60 99 03/17/20 13:00 97.1 F L 71 23 96/60 98 03/17/20 12:19 71 20 90/63 98 03/17/20 12:00 71 23 100 03/17/20 11:00 75 23 03/17/20 10:04 100 03/17/20 09:59 16 03/17/20 09:33 97.4 F L 77 22 94/74 100 Intake and Output 03/17/20 03/18/20 03/18/20 22:59 06:59 14:59 Intake Total 1910 Output Total 400 400 Balance 1510 -400 Intake: Intake, IV Titration 850 Amount Levofloxacin 750Mg-D5w 100 Pmx 750 mg In Dextrose/ Water 1 150ml.bag @ 100 mls/hr IVPB ONCE STA Rx#: [id number] Sodium Chloride 0.9% 500 500 ml 500 ml @ 999 mls/hr IV .Q31M ONE Rx#:[id number] Vancomycin 1,250 mg In 250 Sodium Chloride 0.9% 250 ml @ 125 mls/hr IVPB Q12HR [facility] Rx#:[id number] Oral 1060 Output: Urine 400 400 Other: # Voids 2 2 # Bowel Movements 1 GENERAL DESCRIPTION: Middle-aged female lying in bed, no distress. No tachypnea or accessory muscle of respiration use. HEENT: Shows Pallor , no scleral icterus. Oral mucous membrane is dry. NECK: Trachea central, no thyromegaly. LUNGS: Unlabored breathing. Decreased breath sound on the left side. No wheeze or crackle. HEART: S1, S2, regular rate and rhythm. ABDOMEN: Soft, no tenderness , guarding or rigidity EXTREMITIES: No edema of feet. SKIN: No rash, no masses palpable. NEUROLOGICAL: The patient is awake, alert, oriented x3, mood and affect normal. Results CBC & Chem 7: 03/17/20 10:07 03/17/20 10:07 Labs: Abnormal Lab Results - Last 24 Hours (Table) 03/17/20 03/17/20 03/17/20 Range/Units 10:07 10:07 10:07 WBC 27.2 H (3.8-10.6) k/uL RBC 2.96 L (3.80-5.40) m/uL Hgb 8.0 L (11.4-16.0) gm/dL Hct 26.6 L (34.0-46.0) % MCHC 30.2 L (31.0-37.0) g/dL RDW 17.7 H (11.5-15.5) % Plt Count 514 H (150-450) k/uL Neutrophils # 25.2 H (1.3-7.7) k/uL Sodium 136 L (137-145) mmol/L Glucose 146 H (74-99) mg/dL POC Glucose (mg/dL) (75-99) mg/dL Plasma Lactic Acid Orestes 3.5 H* (0.7-2.0) mmol/L Total Protein 5.6 L (6.3-8.2) g/dL Albumin 2.7 L (3.5-5.0) g/dL 03/17/20 03/17/20 03/17/20 Range/Units 13:07 15:55 16:31 WBC (3.8-10.6) k/uL RBC (3.80-5.40) m/uL Hgb (11.4-16.0) gm/dL Hct (34.0-46.0) % MCHC (31.0-37.0) g/dL RDW (11.5-15.5) % Plt Count (150-450) k/uL Neutrophils # (1.3-7.7) k/uL Sodium (137-145) mmol/L Glucose (74-99) mg/dL POC Glucose (mg/dL) 119 H (75-99) mg/dL Plasma Lactic Acid Orestes 2.2 H* 3.2 H* (0.7-2.0) mmol/L Total Protein (6.3-8.2) g/dL Albumin (3.5-5.0) g/dL 03/17/20 03/17/20 03/17/20 Range/Units 19:23 20:35 22:59 WBC (3.8-10.6) k/uL RBC (3.80-5.40) m/uL Hgb (11.4-16.0) gm/dL Hct (34.0-46.0) % MCHC (31.0-37.0) g/dL RDW (11.5-15.5) % Plt Count (150-450) k/uL Neutrophils # (1.3-7.7) k/uL Sodium (137-145) mmol/L Glucose (74-99) mg/dL POC Glucose (mg/dL) 149 H (75-99) mg/dL Plasma Lactic Acid Orestes 3.2 H* 2.2 H* (0.7-2.0) mmol/L Total Protein (6.3-8.2) g/dL Albumin (3.5-5.0) g/dL 03/18/20 Range/Units 02:00 WBC (3.8-10.6) k/uL RBC (3.80-5.40) m/uL Hgb (11.4-16.0) gm/dL Hct (34.0-46.0) % MCHC (31.0-37.0) g/dL RDW (11.5-15.5) % Plt Count (150-450) k/uL Neutrophils # (1.3-7.7) k/uL Sodium (137-145) mmol/L Glucose (74-99) mg/dL POC Glucose (mg/dL) 156 H (75-99) mg/dL Plasma Lactic Acid Orestes (0.7-2.0) mmol/L Total Protein (6.3-8.2) g/dL Albumin (3.5-5.0) g/dL Assessment and Plan Assessment: patient presenting to the hospital with increasing shortness of breath and this patient currently with no fever however did have elevated white count with a chest x-ray has been suggestive of stable opacification of the left hemithorax and no change in the x-ray finding compared to an x-ray a few days ago on 03/11/2020 with concern for possible symptoms related to fluid overload has been also have lower extremity swelling, however will consider covering the patient with broad-spectrum antibiotic while waiting for condition to stabilize and culture to finalize (1) Empyema lung Status: Acute Code(s): J86.9 - PYOTHORAX WITHOUT FISTULA SNOMED Code(s): 41580351 Plan: 1-vancomycin pharmacy to dose her with a target trough of 15 while watching her kidney function and Vanco trough closely. 2-discontinue Levaquin start brain 07 2 g daily the patient on Rocephin 2 g daily 3-patient may benefit from cardiology evaluation, CT surgery is already on the case We will follow on clinical condition and cultures to further adjust medication if needed Thank you for this consultation we will follow the patient along with you Time with Patient: Greater than 30
[2020-03-18] MEDS ORDERED: MELOXICAM 7.5 MG TAB PO SCH (09:00)
[2020-03-18] MEDS ORDERED: DULoxetine HCL 60 MG CAPSULE.DR PO SCH (09:00)
[2020-03-18] MEDS ORDERED: ASPIRIN 325 MG TAB PO SCH (09:00)
[2020-03-18] MEDS ORDERED: LEVOFLOXACIN 750MG-D5W PMX 750 MG in DEXTROSE/WATER 1 150ML.BAG IVPB SCH (12:45)
--- NOTE | 2020-03-20 09:34 | CDI ---
Documentation Clarification Form Date: 03/20/2020 09:03:37 AM From: Arabellakayli Sánchez Phone: If you have a question about this query, please contact Shante Godoy [employer] at [phone] between 8am and 5pm. Admit Date: 03/17/2020 12:38:00 PM Patient Name: Alexandria Pham Visit Number: [id number] Discharge Date: 03/18/2020 08:04:00 AM ATTENTION: The Clinical Documentation Specialists (CDI) and [facility] Coding Staff appreciate your assistance in clarifying documentation. Please respond to the clarification below the line at the bottom and electronically sign. The CDI & [facility] Coding staff will review the response and follow-up if needed. Please note: Queries are made part of the Legal Health Record. If you have any questions, please contact the author of this message via ITS. Dr. Chantell Leblanc The patient presented with the following SOB on antibiotics for empyema, status post AYAN lobectomy. Documented sepsis in H and P. ID not documenting sepsis, please clarify if patient had sepsis or was this ruled out. History/Risk Factors: empyema Lung CA, TIA Clinical Indicators: WBC 27.2 Lactic acid: 3.5 Vitals signs on admission: 97.4F, 77 bpm, 22, 94/74, 100% 2L Other Clinical Indicators: Treatment: antibiotics ID Consult: empyema Antibiotics: IV Vancomycin Rocephin Levaquin discontinued In your professional opinion, please clarify if these findings signify one of the following conditions, whether the condition is POA, and cause, if known: Condition Sepsis ruled out SIRS, without underlying infectious process Sepsis Severe Sepsis Septic Shock Other, please specify Unable to determine Present on Admission Yes No SIRS Criteria (2 or more of the following may indicate SIRS): -Temperature < 96.8F (36C) or > 101.0F (38.3C) -Heart Rate > 90 bpm -Respiratory Rate > 20 breaths/min or PaCO2 < 32 mmHg -White Blood Cell Count > 12,000 or < 4,000 cells/mm3 or > 10% bands -Lactate >2.0 mmol/L Please refer this to primary team. Thank you MTDD
--- NOTE | 2020-03-22 14:38 | P.DS ---
Providers Date of admission: 03/17/20 12:38 Expected date of discharge: 03/18/20 Attending physician: Hunter Vu Consults: 03/17/20 12:39 Consult Physician Urgent Consulting Provider: Teddy Wilkins Consult Reason/Comments: Pneumonectomy complications Do you want consulting provider notified?: Yes 03/17/20 12:40 Consult Physician Urgent Consulting Provider: Arpit Luque Consult Reason/Comments: Empyema history Do you want consulting provider notified?: Yes 03/17/20 15:30 Consult Physician Routine Consulting Provider: Corona Champion Consult Reason/Comments: sepsis,eympyema Do you want consulting provider notified?: Yes 03/17/20 16:55 Consult Physician Urgent Consulting Provider: Danny Lee Consult Reason/Comments: code stroke, ro TIA Do you want consulting provider notified?: Yes Primary care physician: [facility] [place] Course: e Health Concerns: Plan - Discharge Summary Discharge Rx Participant: Yes New Discharge Prescriptions: No Action RX: DULoxetine HCL [Cymbalta] 60 mg PO DAILY RX: metFORMIN HCL 500 mg PO BID RX: Bisoprolol Fumarate [Zebeta] 10 mg PO DAILY RX: Pantoprazole Sodium 40 mg PO AC-BRKFST RX: Albuterol Inhaler [Ventolin Hfa Inhaler] 2 puff INHALATION RT-QID PRN PRN Reason: Shortness Of Breath RX: Magnesium Oxide [Mag-Ox] 400 mg PO BID #0 tab RX: metroNIDAZOLE [Flagyl] 500 mg PO Q8HR #90 tab RX: hydrALAZINE HCL [Apresoline] 50 mg PO QID #120 tab RX: Valsartan [Diovan] 160 mg PO DAILY #30 tab RX: Furosemide [Lasix] 20 mg PO DAILY #30 tab RX: amLODIPine [Norvasc] 10 mg PO DAILY #30 tab RX: Ascorbic Acid [Vitamin C] 500 mg PO DAILY tab RX: Ibuprofen [Motrin] 600 mg PO Q8HR PRN PRN Reason: Pain RX: Ondansetron [Zofran] 4 mg PO Q6H PRN PRN Reason: Nausea RX: hydrOXYzine PAMOATE 50 mg PO HS RX: Ferrous Sulfate [Iron (65 MG Elemental)] 325 mg PO W/LUNCH RX: Potassium Chloride ER [K-Dur 20] 20 meq PO DAILY #30 tab.er.prt RX: Meloxicam [Mobic] 7.5 mg PO DAILY #60 tab RX: guaiFENesin [Mucinex] 1,200 mg PO Q12HR #30 tablet.er RX: Acetaminophen Tab [Tylenol] 650 mg PO Q6HR PRN tab PRN Reason: Mild Pain Or Fever > 100.5 RX: traMADol HCl [Ultram] 50 mg PO Q6H PRN tab PRN Reason: Pain RX: cefTRIAXone [Rocephin] 2 gm IVPB Q24H vial Discharge Medication List RX: DULoxetine HCL [Cymbalta] 60 mg PO DAILY 06/04/16 [History] RX: metFORMIN HCL 500 mg PO BID 12/28/19 [History] RX: Albuterol Inhaler [Ventolin Hfa Inhaler] 2 puff INHALATION RT-QID PRN 01/29/20 [History] RX: Bisoprolol Fumarate [Zebeta] 10 mg PO DAILY 01/29/20 [History] RX: Magnesium Oxide [Mag-Ox] 400 mg PO BID #0 tab 01/29/20 [Rx] RX: Pantoprazole Sodium 40 mg PO AC-BRKFST 01/29/20 [History] RX: metroNIDAZOLE [Flagyl] 500 mg PO Q8HR #90 tab 02/12/20 [Rx] RX: Ascorbic Acid [Vitamin C] 500 mg PO DAILY tab 02/15/20 [Rx] RX: Furosemide [Lasix] 20 mg PO DAILY #30 tab 02/15/20 [Rx] RX: Valsartan [Diovan] 160 mg PO DAILY #30 tab 02/15/20 [Rx] RX: amLODIPine [Norvasc] 10 mg PO DAILY #30 tab 02/15/20 [Rx] RX: hydrALAZINE HCL [Apresoline] 50 mg PO QID #120 tab 02/15/20 [Rx] RX: Ibuprofen [Motrin] 600 mg PO Q8HR PRN 02/29/20 [History] RX: Ferrous Sulfate [Iron (65 MG Elemental)] 325 mg PO W/LUNCH 03/09/20 [History] RX: Ondansetron [Zofran] 4 mg PO Q6H PRN 03/09/20 [History] RX: hydrOXYzine PAMOATE 50 mg PO HS 03/09/20 [History] RX: Acetaminophen Tab [Tylenol] 650 mg PO Q6HR PRN tab 03/12/20 [Rx] RX: Meloxicam [Mobic] 7.5 mg PO DAILY #60 tab 03/12/20 [Rx] RX: Potassium Chloride ER [K-Dur 20] 20 meq PO DAILY #30 tab.er.prt 03/12/20 [Rx] RX: guaiFENesin [Mucinex] 1,200 mg PO Q12HR #30 tablet.er 03/12/20 [Rx] RX: traMADol HCl [Ultram] 50 mg PO Q6H PRN tab 03/12/20 [Rx] RX: cefTRIAXone [Rocephin] 2 gm IVPB Q24H vial 03/13/20 [Rx] Follow up Appointment(s)/Referral(s): Nathan Leroy MD [Primary Care Provider] - 1-2 days Discharge Disposition: - Preliminary Cause of Preliminary Cause of : lung cancer
--- NOTE | 2020-03-25 07:59 | CDI ---
Documentation Clarification Form Date: 03/20/2020 08:03:00 AM From: Arabellakayli Samuels Phone: If you have a question about this query, please contact Shante Godoy [employer] at [phone] between 8am and 5pm. Admit Date: 03/17/2020 12:38:00 PM Patient Name: Alexandria Pham Visit Number: [id number] Discharge Date: 03/18/2020 08:04:00 AM ATTENTION: The Clinical Documentation Specialists (CDI) and [facility] Coding Staff appreciate your assistance in clarifying documentation. Please respond to the clarification below the line at the bottom and electronically sign. The CDI & [facility] Coding staff will review the response and follow-up if needed. Please note: Queries are made part of the Legal Health Record. If you have any questions, please contact the author of this message via ITS. Dr. Hunter Vu The patient presented with the following SOB on antibiotics for empyema, status post AYAN lobectomy. Documented sepsis in H and P. ID not documenting sepsis, please clarify if patient had sepsis or was this ruled out. History/Risk Factors: empyema Lung CA, TIA Clinical Indicators: WBC 27.2 Lactic acid: 3.5 Vitals signs on admission: 97.4F, 77 bpm, 22, 94/74, 100% 2L Other Clinical Indicators: Treatment: antibiotics ID Consult: empyema Antibiotics: IV Vancomycin Rocephin Levaquin discontinued In your professional opinion, please clarify if these findings signify one of the following conditions, whether the condition is POA, and cause, if known: Condition Sepsis ruled out SIRS, without underlying infectious process Sepsis Severe Sepsis Septic Shock Other, please specify __sirs without underlying infectious process __history of lung cancer with recent resection another consideration might be pulmonary embolus Unable to determine Present on Admission Yes No Shock SIRS Criteria (2 or more of the following may indicate SIRS): -Temperature < 96.8F (36C) or > 101.0F (38.3C) -Heart Rate > 90 bpm -Respiratory Rate > 20 breaths/min or PaCO2 < 32 mmHg -White Blood Cell Count > 12,000 or < 4,000 cells/mm3 or > 10% bands -Lactate >2.0 mmol/L MTDD
--- NOTE | 2020-04-05 13:23 | CDI ---
Documentation Clarification Form Date: 04/05/2020 12:08:19 PM From: Kim Schwartz RN, CCDS Admit Date: 03/17/2020 12:38:00 PM Patient Name: Alexandria Pham Visit Number: [id number] Discharge Date: 03/18/2020 08:04:00 AM ATTENTION: The Clinical Documentation Specialists (CDI) and [facility] Coding Staff appreciate your assistance in clarifying documentation. Please respond to the clarification below the line at the bottom and electronically sign. The CDI & [facility] Coding staff will review the response and follow-up if needed. Please note: Queries are made part of the Legal Health Record. If you have any questions, please contact the author of this message via ITS. Dr. Hunter Vu Anemia is documented in the H&P and requires further specificity to accurately reflect the patient SOI/ROM. History/Risk Factors: Atrial Fib, COPD, DM, Cervical Cancer, Lung Cancer Clinical indicators: 03/17 H&P: "Anemia, microcytic anemia." Hemoglobin: 8 Hematocrit: 26.6 Treatment: 03/17 3L 0.9%NS IVF bolus Lab Monitoring In order to capture the severity of condition, please clarify the type of anemia and etiology if known. Chronic blood loss anemia Iron deficiency anemia Anemia due to malignancy Nutritional anemia Anemia of chronic disease Unable to determine Other, please specify (Last Form Revision: December 2019) anemia due to malignancy MTDD
--- NOTE | 2020-04-05 13:52 | CDI ---
Documentation Clarification Form Date: 04/05/2020 01:25:03 PM From: Kim Schwartz RN, CCDS Admit Date: 03/17/2020 12:38:00 PM Patient Name: Alexandria Pham Visit Number: [id number] Discharge Date: 03/18/2020 08:04:00 AM ATTENTION: The Clinical Documentation Specialists (CDI) and [facility] Coding Staff appreciate your assistance in clarifying documentation. Please respond to the clarification below the line at the bottom and electronically sign. The CDI & [facility] Coding staff will review the response and follow-up if needed. Please note: Queries are made part of the Legal Health Record. If you have any questions, please contact the author of this message via ITS. Dr. Hunter Vu CHF is documented in the cardiovascular consult and requires further specificity to accurately reflect the patient's SOI/ROM. History/Risk Factors: Atrial Fib, COPD, Lung cancer Clinical Indicators: 03/17 Cardiovascular Surgery: "Could be some component to heart failure as her BNP level on admission was greater than 12,000." 03/17 933 Admission: VS/Pulse OX: temp 97.4, HR 77, RR 22, B/P 94/74, Spo2 100% 2l nc BNP: 12,700 01/02/2020 Echocardiogram Results: 55-60% 03/17 Chest X Ray:"Stable opacification to the right hemithorax. Right lung appears clear." Treatment: Lasix 80 mg IVP OT Home Med Lasix 20 mg PO Daily In your professional opinion, can you please clarify the acuity and type of CHF if known? 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
--- NOTE | 2020-04-05 13:58 | CDI ---
Documentation Clarification Form Date: 04/05/2020 01:54:07 PM From: Kim Schwartz RN, CCDS Admit Date: 03/17/2020 12:38:00 PM Patient Name: Alexandria Pham Visit Number: [id number] Discharge Date: 03/18/2020 08:04:00 AM ATTENTION: The Clinical Documentation Specialists (CDI) and [facility] Coding Staff appreciate your assistance in clarifying documentation. Please respond to the clarification below the line at the bottom and electronically sign. The CDI & [facility] Coding staff will review the response and follow-up if needed. Please note: Queries are made part of the Legal Health Record. If you have any questions, please contact the author of this message via ITS. Dr. Hunter Vu Atrial Fibrillation is documented in the PMH and requires further specificity. History/Risk Factors: Atrial Fib, COPD, Lung Cancer, HTN Clinical Indicators: EKG/telemetry: NSR Treatment: No documented home meds for rate control or anticoagulation In your professional opinion, can you please clarify the type of Atrial Fibrillation, if known? Chronic/Permanent Paroxysmal Other, please specify Unable to determine (Last Revision: January 2018) secondary to surgical resection of most of her lung MTDD
--- NOTE | 2020-04-05 14:10 | CDI ---
Documentation Clarification Form Date: 04/05/2020 01:59:11 PM From: Kim Schwartz RN, CCDS Admit Date: 03/17/2020 12:38:00 PM Patient Name: Alexandria Pham Visit Number: [id number] Discharge Date: 03/18/2020 08:04:00 AM ATTENTION: The Clinical Documentation Specialists (CDI) and [facility] Coding Staff appreciate your assistance in clarifying documentation. Please respond to the clarification below the line at the bottom and electronically sign. The CDI & [facility] Coding staff will review the response and follow-up if needed. Please note: Queries are made part of the Legal Health Record. If you have any questions, please contact the author of this message via ITS. Dr. Hunter Vu The patient has been noted to have a low BMI. Please indicate clinical significance. History/Risk Factors: Lung cancer with left upper lobectomy, empyema, DM2, COPD, HTN, anxiety, chronic tobacco use Clinical Indicators: 03/17 ID Consult: "patient complaining of feeling fatigue and weak and increased swelling to the legs." 03/17 Labs: Total Protein 5.6 Albumin 2.7 Current BMI: 19.8 Treatment: Dietary Consult: not completed Supplements: Dietary was unable to complete consult to make recommendations. Lab monitoring In your professional opinion, can you please clarify if these findings signify one of the following conditions? Mild Protein-Calorie Malnutrition Moderate Protein-Calorie Malnutrition Severe Protein-Calorie Malnutrition Other condition, please specify Unable to determine (Last Revision: April 2019) moderate protein calorie malnutrition recently postop lung resection secondary to lung cancer MTDD
== END 2020-03-18 08:04 | disposition expired | DRG 208 ==
LOC: EC 09:27 → 3SCARD 12:38
PROVIDERS: ADMIT Family Medicine; ATTEND Family Medicine
PROC: 0BH17EZ Insertion of Endotracheal Airway into Trachea, Via Natural or Artificial Opening (ICD-10-PCS; principal; 2020-03-18)
PROC: 5A1935Z Respiratory Ventilation, Less than 24 Consecutive Hours (ICD-10-PCS; 2020-03-18)
PROC: 5A12012 Performance of Cardiac Output, Single, Manual (ICD-10-PCS; 2020-03-18)
DX: J86.9 Pyothorax without fistula (principal); I26.99 Other pulmonary embolism without acute cor pulmonale; J96.01 Acute respiratory failure with hypoxia; I46.8 Cardiac arrest due to other underlying condition; I50.33 Acute on chronic diastolic (congestive) heart failure; J94.8 Other specified pleural conditions; J94.2 Hemothorax; E44.0 Moderate protein-calorie malnutrition; C34.12 Malignant neoplasm of upper lobe, left bronchus or lung; E87.2 Acidosis; R65.10 Systemic inflammatory response syndrome (SIRS) of non-infectious origin without acute organ dysfunction; G45.9 Transient cerebral ischemic attack, unspecified; Z87.891 Personal history of nicotine dependence; D50.9 Iron deficiency anemia, unspecified; I95.9 Hypotension, unspecified; I48.91 Unspecified atrial fibrillation; J44.9 Chronic obstructive pulmonary disease, unspecified; E11.9 Type 2 diabetes mellitus without complications; I11.0 Hypertensive heart disease with heart failure; Z20.828 Contact with and (suspected) exposure to other viral communicable diseases; R40.2362 Coma scale, best motor response, obeys commands, at arrival to emergency department; R40.2252 Coma scale, best verbal response, oriented, at arrival to emergency department; R40.2142 Coma scale, eyes open, spontaneous, at arrival to emergency department; F10.21 Alcohol dependence, in remission; F31.9 Bipolar disorder, unspecified; F41.9 Anxiety disorder, unspecified; I69.992 Facial weakness following unspecified cerebrovascular disease; E78.5 Hyperlipidemia, unspecified; I69.923 Fluency disorder following unspecified cerebrovascular disease; M79.7 Fibromyalgia; Z90.2 Acquired absence of lung [part of]; I08.1 Rheumatic disorders of both mitral and tricuspid valves; Z87.01 Personal history of pneumonia (recurrent); Z79.1 Long term (current) use of non-steroidal anti-inflammatories (NSAID); Z79.82 Long term (current) use of aspirin; Z79.84 Long term (current) use of oral hypoglycemic drugs; Z79.899 Other long term (current) drug therapy; Z79.2 Long term (current) use of antibiotics; Z80.1 Family history of malignant neoplasm of trachea, bronchus and lung; Z80.3 Family history of malignant neoplasm of breast; Z83.3 Family history of diabetes mellitus; Z85.41 Personal history of malignant neoplasm of cervix uteri; Z90.710 Acquired absence of both cervix and uterus; R00.1 Bradycardia, unspecified
CPT/HCPCS: 36415; 70450; 71046; 80053; 83605; 83735; 83880; 84484; 85025; 85610; 85730; 86850; 86900; 86901; 87040; 93005; 94640; 96361; 96374; 99285